=== PATIENT | female | born 1960 | race Caucasian/White ===

== ENCOUNTER 2019-08-22 17:26 | Outpatient (CLI) | payer OTHER, SELFPAY ==
--- NOTE | ~2019-08-22 | CT_ITS ---
EXAMINATION: CT sinus wo con DATE: 08/22/2019 17:47 INDICATION: Sinusitis TECHNIQUE: Computed tomography (CT) of the paranasal sinuses was performed without intravenous contra st. The dose-length product was 294.13 mGy-cm. Automated exposure control and iterative reconstructio n technique were employed. COMPARISON: CT dated 04/06/2015 FINDINGS: There is near complete soft tissue opacification of the left maxillary sinus. There is occl usion of the left ostiomeatal unit with opacification of the left ethmoid air cells anteriorly. Leftw toni nasal septal deviation. Mastoids are pneumatized. IMPRESSION: 1. Moderate sinusitis involving the left maxillary and ethmoid sinuses. Reviewed, dictated and finalized at location A. LLENCE COACH
== END 2019-08-22 17:27 | disposition home or self-care (01) ==
LOC: ANHIMG 17:31
PROVIDERS: PCP Family Medicine; Visit Provider Otolaryngology
DX: J32.9 Chronic sinusitis, unspecified (principal)
CPT/HCPCS: 70486

== ENCOUNTER 2019-09-19 17:03 | Outpatient (CLI) | payer OTHER, SELFPAY ==
[2019-09-19 17:54] LABS: Hematocrit 30.2 % (37.0-47.0); Hemoglobin 9.2 g/dL (12.0-15.0); Mean Corpuscular HGB Conc 30.5 g/dl (32-36); Mean Corpuscular Hemoglobin 23.1 pg (26-34); Mean Corpuscular Volume 75.7 fl (80-100); Mean Platelet Volume 9.5 fl (7.4-10.4); Platelet Count Result 174 k/mm3 (150-375); Red Blood Count 3.99 M/mm3 (4.2-5.4); Red Cell Distribution Width 14.6 % (11.5-14.5)
[2019-09-19 18:14] LABS: Phosphorus 4.4 mg/dL (2.5-4.5)
[2019-09-19 18:20] LABS: Parathyroid Intact 43.2 pg/mL (7.5-53.5)
[2019-09-19 18:50] LABS: Vitamin D 25 Hydroxy 42.9 ng/mL
[2019-09-19 19:15] LABS: Folic Acid 15.8 ng/mL (2.76->20)
[2019-09-23 04:35] LABS: Thyroid Peroxidase Antibodies <1 IU/mL (<9)
[2019-09-24 14:12] LABS: Thyroid Stimulating Immunoglob <89 % baseline (<140)
[2019-09-25 06:34] LABS: Triiodothyronine T3 Free 2.8 pg/mL (2.3-4.2)
== END 2019-09-19 17:04 | disposition home or self-care (01) ==
LOC: ANHLAB 17:05
PROVIDERS: PCP Family Medicine; Visit Provider Internal Medicine Endocrinology, Diabetes & Metabolism
DX: M85.80 Other specified disorders of bone density and structure, unspecified site (principal); R53.83 Other fatigue
CPT/HCPCS: 36415; 82306; 82607; 82746; 83970; 84100; 84439; 84443; 84445; 84481; 85027; 86376

== ENCOUNTER 2019-09-26 10:07 | Outpatient (CLI) | payer OTHER, SELFPAY ==
[2019-09-26 11:11] LABS: Cholesterol 141 mg/dL (0-200); HDL Direct 54 mg/dL; Triglycerides 126 mg/dL (<150)
[2019-09-26 11:21] LABS: LDL Cholesterol Direct 73 mg/dL
== END 2019-09-26 10:08 | disposition home or self-care (01) ==
PROVIDERS: PCP Family Medicine; Referring Provider Internal Medicine Endocrinology, Diabetes & Metabolism; Visit Provider Family Medicine
DX: E78.5 Hyperlipidemia, unspecified (principal); M85.80 Other specified disorders of bone density and structure, unspecified site; R53.83 Other fatigue
CPT/HCPCS: 36415; 80061

== ENCOUNTER 2019-10-01 13:50 | Outpatient (CLI) | payer OTHER, SELFPAY ==
[2019-10-01 14:55] LABS: Creatinine 24 Hour Urine 0.8 gm/24 (0.8-1.8); Total Volume 24 Hour Urine 2600 ml
[2019-10-04 04:39] LABS: Total Volume 2600 mL; Urine Calcium 2.7 mg/dL
== END 2019-10-01 13:51 | disposition home or self-care (01) ==
PROVIDERS: PCP Family Medicine; Visit Provider Internal Medicine Endocrinology, Diabetes & Metabolism
DX: M85.80 Other specified disorders of bone density and structure, unspecified site (principal); R53.83 Other fatigue
CPT/HCPCS: 81050; 82340; 82530; 82570

== ENCOUNTER 2020-01-06 17:43 | Outpatient (CLI) | payer OTHER, SELFPAY ==
[2020-01-06 18:30] LABS: Alanine Aminotransferase 21 U/L (4-35); Albumin Level 4.3 g/dL (3.5-5.1); Alkaline Phosphatase 70 U/L (38-126); Aspartate Amino Transferase 27 U/L (14-36); Bilirubin,Total 0.7 mg/dL (0.2-1.3); Blood Urea Nitrogen 10 mg/dL (7-17); Calcium 8.7 mg/dL (8.4-10.2); Carbon Dioxide 24 mmol/L (22-30); Chloride 107 mmol/L (98-107); Estimated Glomerular Filt Rate > 60; Glucose 117 mg/dL (65-105); Potassium 3.5 mmol/L (3.4-5.0); Sodium 137 mmol/L (137-145)
== END 2020-01-06 17:44 | disposition home or self-care (01) ==
PROVIDERS: PCP Family Medicine; Visit Provider Internal Medicine Endocrinology, Diabetes & Metabolism
DX: M81.0 Age-related osteoporosis without current pathological fracture (principal)
CPT/HCPCS: 36415; 80053

== ENCOUNTER → 2020-04-05 17:27 | Outpatient (CLI) | payer OTHER, SELFPAY ==
--- NOTE | ~2020-04-05 | XR_ITS ---
EXAMINATION: XR hand RT min 3V DATE: 04/05/2020 17:37 INDICATION: Pain at the base of right thumb. TECHNIQUE: 3 views of right hand were obtained. COMPARISON: Right hand radiographs 06/28/2010 FINDINGS: Bone alignment is normal. No fracture. There is diffuse osteopenia. There is moderate osteo arthritis of first carpometacarpal joint with loose bodies. There is mild osteoarthritis of second me tacarpophalangeal joint and many of the interphalangeal joints. There is moderate osteoarthritis of s econd distal interphalangeal joint and severe osteoarthritis of fifth distal interphalangeal joint. IMPRESSION: 1. Polyarticular osteoarthritis. Reviewed, dictated and finalized at location A.
== END ==
PROVIDERS: PCP Family Medicine; Visit Provider Family Medicine
DX: M19.041 Primary osteoarthritis, right hand (principal)
CPT/HCPCS: 73130

== ENCOUNTER 2020-05-20 17:18 | Outpatient (CLI) | payer OTHER, SELFPAY ==
--- NOTE | ~2020-05-20 | MM_ITS ---
EXAMINATION: MM screening [facility] BI w andres HISTORY: Screening mammogram TECHNIQUE: Craniocaudal and mediolateral oblique 3-D tomosynthesis images were obtained and synthetic 2-D images were generated. CAD analysis was submitted and interpreted. COMPARISON: 08/09/2018, 07/10/2017, 03/01/2016 BREAST PARENCHYMAL COMPOSITION: There are scattered areas of fibroglandular density. FINDINGS: There is no evidence of suspicious mass, calcification, or architectural distortion to sugg est malignancy in either breast. There has been no suspicious interval change. IMPRESSION: 1. No mammographic evidence of malignancy. 2. Recommend routine screening mammography in one year. BI-RADS Category 1: Negative Reviewed, dictated and finalized at location A.
== END 2020-05-20 17:19 | disposition home or self-care (01) ==
LOC: ANHIMG 17:20
PROVIDERS: PCP Family Medicine; Visit Provider Family Medicine
DX: Z12.31 Encounter for screening mammogram for malignant neoplasm of breast (principal)
CPT/HCPCS: 77063; 77067

== ENCOUNTER 2020-06-23 09:37 | Outpatient (CLI) | payer OTHER, SELFPAY ==
[2020-06-23 10:16] LABS: Cholesterol 155 mg/dL (0-200); HDL Direct 55 mg/dL; Triglycerides 217 mg/dL (<150)
[2020-06-23 10:17] LABS: Alanine Aminotransferase 23 U/L (4-35); Albumin Level 4.3 g/dL (3.5-5.1); Alkaline Phosphatase 70 U/L (38-126); Anion Gap 7 mmol/L (8-16); Aspartate Amino Transferase 32 U/L (14-36); Bilirubin,Total 0.8 mg/dL (0.2-1.3); Blood Urea Nitrogen 8 mg/dL (7-17); Calcium 10.1 mg/dL (8.4-10.2); Carbon Dioxide 29 mmol/L (22-30); Chloride 103 mmol/L (98-107); Estimated Glomerular Filt Rate > 60; Glucose 109 mg/dL (65-105); Phosphorus 4.9 mg/dL (2.5-4.5); Potassium 4.3 mmol/L (3.4-5.0); Sodium 139 mmol/L (137-145)
[2020-06-23 10:26] LABS: LDL Cholesterol Direct 57 mg/dL
[2020-06-26 19:29] LABS: Vitamin D 1,25 (OH)2 Total 54 pg/mL (18-72); Vitamin D2 1,25 (OH)2 <8 pg/mL; Vitamin D3 1,25 (OH)2 54 pg/mL
== END 2020-06-23 09:38 | disposition home or self-care (01) ==
LOC: ANHLAB 09:39
PROVIDERS: PCP Family Medicine; Visit Provider Family Medicine
DX: E55.9 Vitamin D deficiency, unspecified (principal); E78.00 Pure hypercholesterolemia, unspecified; M81.0 Age-related osteoporosis without current pathological fracture
CPT/HCPCS: 36415; 80053; 80061; 82306; 82652; 83970; 84100

== ENCOUNTER 2020-08-17 17:33 | Outpatient (CLI) | payer OTHER, SELFPAY ==
--- NOTE | ~2020-08-17 | CT_ITS ---
EXAMINATION: CT sinus wo con DATE: 08/17/2020 17:58 INDICATION: Chronic sinusitis TECHNIQUE: Computed tomography (CT) of the paranasal sinuses was performed without contrast. Iterativ e reconstruction technique was employed. Exam dose: 259.22 mGy-cm total exam DLP. COMPARISON: CT sinuses FINDINGS: There is leftward deviation of the nasal septum. Intralamellar cell of left middle nasal turbinate. The nasal turbinates are moderately prominent and relatively symmetric in size. The ostiomeatal units are patent. The paranasal sinuses are normally developed and aerated. Mastoid a ir cells are normally developed and aerated. IMPRESSION: Leftward deviation of nasal septum Intralamellar cell of left middle nasal turbinate Reviewed, dictated and finalized at Location A. Reviewed, dictated and finalized at location A. GE CREW MEMBER
== END 2020-08-17 17:34 | disposition home or self-care (01) ==
PROVIDERS: PCP Family Medicine; Visit Provider Otolaryngology
DX: J32.9 Chronic sinusitis, unspecified (principal); J34.2 Deviated nasal septum
CPT/HCPCS: 70486

== ENCOUNTER 2020-09-25 09:34 | Outpatient (CLI) | payer OTHER, SELFPAY ==
--- NOTE | ~2020-09-25 | MR_ITS ---
EXAMINATION: MR brain IAC wo con EXAM DATE: 09/25/2020 11:13 INDICATION: Dizziness. Headache. Nausea. TECHNIQUE: Multi-sequential, multiplanar MR images of the brain, brainstem, internal auditory canals were obtained without contrast. Whole brain sagittal T1, axial diffusion, gradient echo (T2*), T1, T 2, FLAIR sequences obtained. High resolution coronal 3-D FIESTA, coronal T1 FSE, axial T1 FSPGR of t he internal auditory canals. Correlation is made to sinus CT 08/17/2020. FINDINGS: No evidence of mastoid or middle ear opacification. The 7th/8th cranial nerve complexes a re symmetric, normal in course and caliber. No cerebellopontine angle masses. Posterior fossa unrem arkable. There are no areas of restricted diffusion to suggest acute infarction. There is no acute hemorrhage seen on the T2*, a hemosiderin sensitive sequence. No intraparenchymal brain mass lesion. There is mild periventricular and subcortical T2/FLAIR signal hyperintensity, nonspecific but probably related to small vessel ischemic disease (microangiopathy). There are no extra-axial collections. Flow v oids are seen in the cerebral arteries on the T2-weighted sequences consistent with their expected pa tency. The orbits are unremarkable. Soft tissue is unremarkable. IMPRESSION: 1. No acute intracranial findings. 2. Mild microangiopathy. Reviewed, dictated and finalized at location A. E WIRER
== END 2020-09-25 09:35 | disposition home or self-care (01) ==
PROVIDERS: PCP Family Medicine; Visit Provider Family Medicine
DX: J34.89 Other specified disorders of nose and nasal sinuses (principal); R11.0 Nausea; R51.9 Headache, unspecified; R53.83 Other fatigue
CPT/HCPCS: 70551

== ENCOUNTER 2020-09-27 16:20 | Outpatient (CLI) | payer OTHER, SELFPAY ==
--- NOTE | ~2020-09-27 | MR_ITS ---
EXAMINATION: MR sinus wo con DATE: 09/27/2020 17:06 INDICATION: Headache, unspecified. TECHNIQUE: Magnetic resonance imaging (MRI) of the paranasal sinuses was performed without intravenou s contrast. Sequences included axial and coronal T1-weighted FSE and T2-weighted FS FSE. COMPARISON: CT sinuses 08/17/2020 FINDINGS: There is leftward deviation of the nasal septum. The paranasal sinuses are clear. There are likely ch anges of ocular lens replacement surgeries. There is a small right mastoid effusion. There are scatte red areas of nonspecific increased T2-weighted signal intensity in the cerebral white matter and miky . IMPRESSION: 1. Leftward deviation of the nasal septum. 2. Mild nonspecific cerebral white matter disease and pontine disease, which likely represents chroni c small vessel ischemic disease. Reviewed, dictated and finalized at location A. MILL WORKER IMPRESSION: 1. Leftward deviation of the nasal septum. 2. Mild nonspecific cerebral white matter disease and pontine disease, which cecilia guillen represents chronic small vessel ischemic disease.
== END 2020-09-27 16:21 | disposition home or self-care (01) ==
PROVIDERS: PCP Family Medicine; Visit Provider Family Medicine
DX: R51.9 Headache, unspecified (principal); J34.89 Other specified disorders of nose and nasal sinuses; R11.0 Nausea; R53.83 Other fatigue; R90.82 White matter disease, unspecified
CPT/HCPCS: 70540

== ENCOUNTER → 2020-10-04 17:34 | Outpatient (CLI) | payer OTHER, SELFPAY ==
--- NOTE | ~2020-10-04 | XR_ITS ---
XR knee RT min 4V DATE: 10/04/2020 17:58 INDICATION: Right knee pain TECHNIQUE: 4 views COMPARISON: None FINDINGS: No fracture or dislocation or joint effusion. No periosteal reaction or bone destruction. Joint spaces are preserved. No radiopaque intra-articular loose body or chondrocalcinosis. IMPRESSION: Negative Reviewed, dictated and finalized at location A. IMPRESSION: Negative
--- NOTE | ~2020-10-04 | XR_ITS ---
XR femur RT min 2V DATE: 10/04/2020 17:58 INDICATION: Right leg pain TECHNIQUE: AP and lateral views COMPARISON: 10/02/2020 pelvis and right hip FINDINGS: No fracture or dislocation, periosteal reaction or bone destruction. IMPRESSION: No significant abnormality Reviewed, dictated and finalized at location A. IMPRESSION: No significant abnormality
--- NOTE | ~2020-10-04 | XR_ITS ---
XR hip RT min 3V w AP pelvis DATE: 10/04/2020 17:58 INDICATION: Right hip pain TECHNIQUE: AP pelvis. AP, lateral and crosstable lateral views of right hip. COMPARISON: 01/06/2011 right hip FINDINGS: No fracture, dislocation, avascular necrosis or bone destruction of the right hip. The pubic symphysis and sacroiliac joints are intact. Mild left hip osteoarthritis. IMPRESSION: Mild left hip osteoarthritis Reviewed, dictated and finalized at location A.
--- NOTE | ~2020-10-04 | XR_ITS ---
XR tibia fibula RT 2V DATE: 10/04/2020 17:58 INDICATION: Pain TECHNIQUE: AP and lateral views COMPARISON: None FINDINGS: No fracture or dislocation, periosteal reaction or bone destruction. Plantar and posterior calcaneal enthesopathy. IMPRESSION: Calcaneal enthesopathy Reviewed, dictated and finalized at location A. IMPRESSION: Calcaneal enthesopathy
== END ==
PROVIDERS: PCP Family Medicine; Visit Provider Family Medicine
DX: M25.551 Pain in right hip (principal); M25.561 Pain in right knee; M79.651 Pain in right thigh; M79.661 Pain in right lower leg; M77.31 Calcaneal spur, right foot; M16.12 Unilateral primary osteoarthritis, left hip
CPT/HCPCS: 73502; 73552; 73564; 73590

== ENCOUNTER 2020-10-09 08:46 | Outpatient (CLI) | payer OTHER, SELFPAY ==
[2020-10-09 09:25] LABS: Basophils Percent Auto 0.8 % (0.2-1.2); Eosinophils Absolute Auto 0.1 K/mm3 (0-0.3); Eosinophils Percent Auto 3.7 % (0-4.4); Hematocrit 36.2 % (37.0-47.0); Hemoglobin 12.7 g/dL (12.0-15.0); Immature Granulocyte Absolute 0.01 K/mm3 (0.00-0.031); Immature Granulocyte Percent A 0.3 % (0-0.5); Lymphocytes Absolute Auto 1.19 K/mm3 (0.9-3.2); Lymphocytes Percent Auto 31.6 % (18.3-44.2); Mean Corpuscular HGB Conc 35.1 g/dl (32-36); Mean Corpuscular Hemoglobin 30.1 pg (26-34); Mean Corpuscular Volume 85.8 fl (80-100); Mean Platelet Volume 9.8 fl (7.4-10.4); Monocytes Absolute Auto 0.4 K/mm3 (0.1-0.6); Monocytes Percent Auto 9.5 % (2.6-8.5); Neutrophils Percent Auto 54.1 % (45.5-73.1); Platelet Count Result 159 k/mm3 (150-375); Red Blood Count 4.22 M/mm3 (4.2-5.4); White Blood Count 3.8 K/mm3 (4.5-10.0)
[2020-10-09 09:28] LABS: Alanine Aminotransferase 22 U/L (4-35); Albumin Level 4.6 g/dL (3.5-5.1); Alkaline Phosphatase 73 U/L (38-126); Anion Gap 8 mmol/L (8-16); Aspartate Amino Transferase 31 U/L (14-36); Bilirubin,Total 0.9 mg/dL (0.2-1.3); Blood Urea Nitrogen 8 mg/dL (7-17); Calcium 9.2 mg/dL (8.4-10.2); Carbon Dioxide 27 mmol/L (22-30); Chloride 106 mmol/L (98-107); Cholesterol 154 mg/dL (0-200); Estimated Glomerular Filt Rate > 60; Glucose 110 mg/dL (65-105); HDL Direct 54 mg/dL; Potassium 3.8 mmol/L (3.4-5.0); Sodium 141 mmol/L (137-145); Triglycerides 197 mg/dL (<150)
[2020-10-09 09:32] LABS: Hemoglobin A1C 4.9 % (<5.7)
[2020-10-09 09:39] LABS: LDL Cholesterol Direct 62 mg/dL
[2020-10-09 09:50] LABS: Iron 100 ug/dL (37-170)
[2020-10-09 09:54] LABS: Immunoglobulin A 132 mg/dL (70-400); Immunoglobulin M 43 mg/dL (40-230)
[2020-10-09 10:00] LABS: Percent Iron Saturation 22 % (20-50)
[2020-10-09 10:22] LABS: Hepatitis B Surface Antigen Negative (Negative)
[2020-10-09 10:39] LABS: Hepatitis B Surface Anti Res Negative; Hepatitis C Virus Antibody Negative (Negative)
[2020-10-12 12:28] LABS: Hepatitis B Core Ab Total Nonreactive (Nonreactive)
[2020-10-13 09:41] LABS: Mitochondrial (M2) Ab (IgG) <=20.0 U (<=20.0)
[2020-10-14 11:16] LABS: Ceruloplasmin 34 mg/dL (18-53)
[2020-10-14 14:26] LABS: Tissue Transglutaminase IgA Ab 1 U/mL (<4)
[2020-10-16 09:16] LABS: Actin Antibody (IgG) <20 U (<20)
[2020-10-20 13:40] LABS: Immunoglobulin G 844 mg/dL (700-1600)
== END 2020-10-09 08:47 | disposition home or self-care (01) ==
LOC: ANHLAB 08:54
PROVIDERS: PCP Family Medicine
DX: K50.819 Crohn's disease of both small and large intestine with unspecified complications (principal); D50.0 Iron deficiency anemia secondary to blood loss (chronic); K21.9 Gastro-esophageal reflux disease without esophagitis; R19.7 Diarrhea, unspecified; R11.2 Nausea with vomiting, unspecified
CPT/HCPCS: 36415; 80053; 80061; 82104; 82390; 82728; 82784; 83036; 83516; 83520; 83540; 83550; 85025; 86038; 86704; 86706; 86803; 87340

== ENCOUNTER 2020-10-15 16:27 | Outpatient (CLI) | payer OTHER, SELFPAY ==
--- NOTE | ~2020-10-15 | MR_ITS ---
EXAMINATION: MR hip RT wo con DATE: 10/15/2020 17:42 INDICATION: Right groin pain TECHNIQUE: Magnetic resonance imaging (MRI) of the right hip was performed without intravenous contr ast. Sequences included full-field axial PD-weighted FS FSE and T1-weighted FSE, coronal of the pelvi s with PD-weighted FS FSE, small field of view of the affected hip with axial PD-weighted FS FSE, sa gittal PD-weighted FS FSE and coronal PD weighted FS FSE. Additional radial T1-weighted FGR oriented orthogonal to the acetabular rim were obtained for evaluation of the labrum. COMPARISON: None FINDINGS: Bones/labrum/cartilage: Alignment is normal. No fracture, avascular necrosis or pathologic marrow replacing process. Mild ri ght hip osteoarthritis with mild nonuniform joint space narrowing greatest anterosuperiorly where the re is a region of high-grade chondromalacia with partial-thickness cartilage loss, deep fissuring and mild underlying subarticular cystic change at the anterosuperior acetabulum. There is irregular dege nerative tearing of the anterosuperior to superolateral right acetabular labrum. Small acetabular mar ginal osteophytes. Replace portions of the posterior superior right acetabular labrum. Moderate to se sandra bilateral lower lumbar facet osteoarthritis. Fluid: Symmetric physiologic amount of fluid within both hip joints. Soft tissues: Normal and symmetric muscle bulk and signal in the pelvis and visualized proximal thighs. The iliopso as, gluteal and proximal hamstring tendons are normal. Limited evaluation of visceral organs of the p jasen is unremarkable including a normal appendix. No pathologically enlarged pelvic/inguinal lympha denopathy. IMPRESSION: 1. 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 Reviewed, dictated and finalized at location A. IMPRESSION: 1. Mild right hip osteoarthritis with labral tear and small regions of high-gra de acetabular chondromalacia.
== END 2020-10-15 16:28 | disposition home or self-care (01) ==
PROVIDERS: PCP Family Medicine; Visit Provider Orthopaedic Surgery
DX: M16.11 Unilateral primary osteoarthritis, right hip (principal)
CPT/HCPCS: 73721

== ENCOUNTER 2021-02-02 13:54 | Outpatient (CLI) | payer OTHER, SELFPAY ==
--- NOTE | ~2021-02-02 | DEXA_ITS ---
Bone Density Report Name: Muriel Wade Age: 60 Sex: Female Ethnicity: White Date of : 1960 Indication: osteopenia; monitoring treatment; height loss; inflammatory bowel disease; prior fracture; postmenopausal Referring Provider: Jon, Juliette Esteban Study: Bone densitometry was performed. Exam Date: February 02, 2021 Accession number: [id number] Bone Density: Region BMD T-score Z-score Classification AP Spine (L1-L4) 0.857 -1.7 -0.1 Osteopenia Femoral Neck (Left) 0.604 -2.2 -0.8 Osteopenia Total Hip (Left) 0.761 -1.5 -0.4 Osteopenia Total Hip Bilateral Avg 0.737 -1.7 -0.6 Osteopenia Femoral Neck (Right) 0.595 -2.3 -0.9 Osteopenia Total Hip (Right) 0.712 -1.9 -0.8 Osteopenia World Health Organization criteria for BMD impression classify patients as: Normal (T-score at or above -1.0), Osteopenia (T-score between -1.0 and -2.5), or Osteoporosis (T-score at or below -2.5). 10-year Fracture Risk: FRAX not reported because: Treated for osteoporosis Previous Exams: Region Exam Age BMD T-score BMD Change BMD Change Date g/cm2 vs Baseline vs Previous AP Spine(L1-L4) 02/02/2021 60 0.857 -1.7 -0.092(-9.7%)# -0.033(-3.7%)* 01/31/2019 58 0.890 -1.4 -0.060(-6.3%)# -0.005(-0.5%) 03/01/2016 55 0.895 -1.4 -0.055(-5.8%)# 0.021(2.4%)# 07/30/2013 53 0.874 -1.6 -0.076(-8.0%)# -0.076(-8.0%)# 05/18/2010 50 0.950 -0.9 Total Hip(Left) 02/02/2021 60 0.761 -1.5 -0.033(-4.2%)# 0.026(3.5%) 01/31/2019 58 0.735 -1.7 -0.059(-7.4%)# -0.060(-7.5%)* 03/01/2016 55 0.795 -1.2 0.001(0.1%)# -0.054(-6.3%)# 07/30/2013 53 0.849 -0.8 0.054(6.9%)# 0.054(6.9%)# 05/18/2010 50 0.794 -1.2 Total Hip(Right) 02/02/2021 60 0.712 -1.9 -0.039(-5.2%)# -0.032(-4.3%)* 01/31/2019 58 0.744 -1.6 -0.007(-1.0%)# -0.023(-3.0%) 03/01/2016 55 0.767 -1.4 0.016(2.1%)# -0.008(-1.0%)# 07/30/2013 53 0.775 -1.4 0.024(3.2%)# 0.024(3.2%)# 05/18/2010 50 0.751 -1.6 *Denotes significance at 95% confidence level, LSC for AP Spine = 0.022 g/cm2, LSC for Total Hip = 0.027 g/cm2 Clinical Information Provided by Patient: Has had a low trauma fracture Is being treated for osteoporosis Has used the following medications: Vitamin D, Calcium Has the following medical conditions: Inflammatory bowel diseases Patient maximum height was 61 Menopause Age: 41 No regular weight bearing exercise Drinks caffeinated beverages Onset of menses at age 11 Number of children 3
== END 2021-02-02 13:55 | disposition home or self-care (01) ==
LOC: ANHIMG 13:56
PROVIDERS: PCP Family Medicine; Visit Provider Internal Medicine Endocrinology, Diabetes & Metabolism
DX: M81.0 Age-related osteoporosis without current pathological fracture (principal); M85.88 Other specified disorders of bone density and structure, other site; M85.852 Other specified disorders of bone density and structure, left thigh; M85.851 Other specified disorders of bone density and structure, right thigh
CPT/HCPCS: 77080

== ENCOUNTER 2021-02-05 09:21 | Outpatient (CLI) | payer OTHER, SELFPAY ==
[2021-02-05 09:52] LABS: Eosinophils Absolute Auto 0.1 K/mm3 (0-0.3); Eosinophils Percent Auto 3.3 % (0-4.4); Hematocrit 34.8 % (37.0-47.0); Hemoglobin 11.7 g/dL (12.0-15.0); Immature Granulocyte Absolute 0.01 K/mm3 (0.00-0.031); Immature Granulocyte Percent A 0.3 % (0-0.5); Lymphocytes Absolute Auto 0.83 K/mm3 (0.9-3.2); Lymphocytes Percent Auto 27.3 % (18.3-44.2); Mean Corpuscular HGB Conc 33.6 g/dl (32-36); Mean Corpuscular Hemoglobin 29.2 pg (26-34); Mean Corpuscular Volume 86.8 fl (80-100); Mean Platelet Volume 9.3 fl (7.4-10.4); Monocytes Absolute Auto 0.3 K/mm3 (0.1-0.6); Monocytes Percent Auto 9.2 % (2.6-8.5); Neutrophils Absolute Auto 1.8 K/mm3 (1.3-6.7); Neutrophils Percent Auto 58.9 % (45.5-73.1); Platelet Count Result 161 k/mm3 (150-375); Red Blood Count 4.01 M/mm3 (4.2-5.4); Red Cell Distribution Width 12.7 % (11.5-14.5)
[2021-02-05 10:49] LABS: Cholesterol 147 mg/dL (0-200); HDL Direct 51 mg/dL; Triglycerides 124 mg/dL (<150)
[2021-02-05 10:50] LABS: Alanine Aminotransferase 15 U/L (4-35); Albumin Level 4.5 g/dL (3.5-5.1); Alkaline Phosphatase 65 U/L (38-126); Anion Gap 9 mmol/L (8-16); Aspartate Amino Transferase 25 U/L (14-36); Bilirubin,Total 0.8 mg/dL (0.2-1.3); Blood Urea Nitrogen 6 mg/dL (7-17); CRP < 0.5 mg/dL (<1.0); Calcium 9.4 mg/dL (8.4-10.2); Carbon Dioxide 26 mmol/L (22-30); Chloride 106 mmol/L (98-107); Estimated Glomerular Filt Rate > 60; Glucose 99 mg/dL (65-110); Potassium 3.6 mmol/L (3.4-5.0); Sodium 141 mmol/L (137-145)
[2021-02-05 10:59] LABS: LDL Cholesterol Direct 58 mg/dL
[2021-02-05 11:36] LABS: Parathyroid Intact 54.5 pg/mL (7.5-53.5)
[2021-02-05 12:06] LABS: Free T4 Free Thyroxine 0.84 ng/mL (0.78-2.19); Vitamin D 25 Hydroxy 31.6 ng/mL
[2021-02-09 02:58] LABS: Insulin Level Total 6.1 uIU/mL (<=19.6)
[2021-02-10 21:43] LABS: Estradiol, Ultrasensitive 5 pg/mL
[2021-02-11 16:41] LABS: Testosterone Free 1.8 pg/mL (0.1-6.4); Testosterone Total 13 ng/dL (2-45)
== END 2021-02-05 09:22 | disposition home or self-care (01) ==
PROVIDERS: PCP Family Medicine; Referring Provider Internal Medicine Endocrinology, Diabetes & Metabolism; Visit Provider Family Medicine
DX: E78.00 Pure hypercholesterolemia, unspecified (principal); K50.819 Crohn's disease of both small and large intestine with unspecified complications; R73.01 Impaired fasting glucose; M81.0 Age-related osteoporosis without current pathological fracture
CPT/HCPCS: 36415; 80053; 80061; 82306; 82670; 83525; 83970; 84402; 84403; 84439; 84443; 85025; 86140

== ENCOUNTER 2021-02-07 17:24 | Outpatient (CLI) | payer OTHER, SELFPAY ==
[2021-02-10 11:54] LABS: NIL 0.08 IU/mL; Quantiferon TB Plus, 1T NEGATIVE (NEGATIVE); TB2-NIL 0.02 IU/mL
== END 2021-02-07 17:25 | disposition home or self-care (01) ==
LOC: ANHLAB 17:27
PROVIDERS: PCP Family Medicine
DX: K50.819 Crohn's disease of both small and large intestine with unspecified complications (principal)
CPT/HCPCS: 36415; 86480

== ENCOUNTER 2021-02-09 13:29 | Outpatient (CLI) | payer OTHER, SELFPAY ==
--- NOTE | ~2021-02-09 | XR_ITS ---
EXAMINATION: XR lg joint inject/asp w image DATE: 02/09/2021 14:41 INDICATION: Right hip osteoarthritis TECHNIQUE: A time-out was performed to verify the patient's name, date of , and procedure to b e performed. The procedure including the risks, benefits, and alternatives was discussed with the pat ient. Risks discussed included bleeding and infection. The patient understood the risks and agreed to proceed. The skin overlying the right hip joint was prepped and draped in usual sterile fashion. A nesthetic was administered with 1% lidocaine subcutaneously. A 22 G needle was advanced under fluoro scopic guidance into the joint. Injection of 1 mL of Omnipaque 240 confirmed intra-articular positio n of the needle. Subsequently, injectate consisting of 5 mL of a 4:1 mixture of 1% lidocaine: 80 mg Depo-Medrol was instilled. Washout of contrast was seen confirming intra-articular administration. Th e needle was removed and the entry site was cleaned and dressed. There were no immediate complicatio ns. Fluoroscopy exposure time was 0.1 minutes. The total number of images was 2. FINDINGS: Real-time fluoroscopy demonstrates the needle in the right hip joint. Patient's pain prior to procedure:11/29. Patient's pain following the procedure: 08/01. IMPRESSION: 1. Right hip joint injection of local anesthetic and steroid with decrease in the patient's presentin g pain. Reviewed, dictated and finalized at location A. IMPRESSION: 1. Right hip joint injection of local anesthetic and steroid with decrease in t he patient's presenting pain.
== END 2021-02-09 13:30 | disposition home or self-care (01) ==
PROVIDERS: PCP Family Medicine; Visit Provider Physician Assistant Surgical
DX: M16.11 Unilateral primary osteoarthritis, right hip (principal)
CPT/HCPCS: 20610; 77002; J1040; Q9966

== ENCOUNTER 2021-03-09 15:05 | Outpatient (CLI) | payer OTHER, SELFPAY ==
[2021-03-09 15:56] LABS: Creatinine Urine 31.4 mg/dL
[2021-03-09 15:57] LABS: Creatinine 24 Hour Urine 0.9 gm/24 (0.8-1.8); Total Volume 24 Hour Urine 3150 ml
[2021-03-14 14:37] LABS: Total Volume 3150 mL; Urine Calcium 1.4 mg/dL
== END 2021-03-09 15:06 | disposition home or self-care (01) ==
PROVIDERS: PCP Family Medicine
DX: M81.0 Age-related osteoporosis without current pathological fracture (principal)
CPT/HCPCS: 81050; 82340; 82530; 82570

== ENCOUNTER 2021-05-25 13:56 | Outpatient (CLI) | payer OTHER, SELFPAY ==
--- NOTE | ~2021-05-25 | MM_ITS ---
EXAMINATION: MM screening [facility] BI w andres HISTORY: Screening TECHNIQUE: Craniocaudal and mediolateral oblique 3-D tomosynthesis images were obtained and synthetic 2-D images were generated. CAD analysis was submitted and interpreted. COMPARISON: Comparison to multiple prior studies sequentially, with oldest reviewed study dated 02/2014. BREAST PARENCHYMAL COMPOSITION: There are scattered areas of fibroglandular density. FINDINGS: There is no evidence of suspicious mass, calcification, or architectural distortion to sugg est malignancy in either breast. There has been no suspicious interval change. IMPRESSION: 1. No mammographic evidence of malignancy. 2. Recommend routine screening mammography in one year. BI-RADS Category 1: Negative Reviewed, dictated and finalized at location A.
== END 2021-05-25 13:57 | disposition home or self-care (01) ==
LOC: ANHIMG 13:57
PROVIDERS: PCP Family Medicine; Visit Provider Family Medicine
DX: Z12.31 Encounter for screening mammogram for malignant neoplasm of breast (principal)
CPT/HCPCS: 77063; 77067

== ENCOUNTER 2021-07-05 17:14 | Outpatient (CLI) | payer OTHER, SELFPAY ==
[2021-07-18 08:44] LABS: Reference Lab Test Result 8.2
== END 2021-07-05 17:15 | disposition home or self-care (01) ==
PROVIDERS: PCP Family Medicine
DX: K50.819 Crohn's disease of both small and large intestine with unspecified complications (principal)
CPT/HCPCS: 99199; 36415; 80230

== ENCOUNTER → 2021-08-22 17:17 | Outpatient (CLI) | payer OTHER, SELFPAY ==
--- NOTE | ~2021-08-22 | XR_ITS ---
EXAMINATION: XR soft tissue neck EXAM DATE: 08/22/2021 17:40 INDICATION: M54.2 - Cervicalgia. TECHNIQUE: Frontal and lateral projections of the neck soft tissues. There is no prior study for co mparison. FINDINGS: Lung apices are clear. There is mild disc disease at C5-6 with 2 mm retrolisthesis. There is mild to moderate cervical arthropathy. Prevertebral soft tissue and pre-dens space are within norm al limits. The odontoid process is intact. The lateral masses of C1 line up with C2. Epiglottis is n ormal in thickness. There may be mild left carotid bulb arterial sclerosis. IMPRESSION: Mild to moderate cervical arthropathy. Reviewed, dictated and finalized at location G. YTICS LEAD
== END ==
PROVIDERS: PCP Family Medicine; Visit Provider Family Medicine
DX: M54.2 Cervicalgia (principal)
CPT/HCPCS: 70360

== ENCOUNTER 2021-08-29 07:46 | Outpatient (CLI) | payer OTHER, SELFPAY ==
--- NOTE | ~2021-08-29 | US_ITS ---
EXAMINATION: US soft tissue head and neck EXAM DATE: 08/29/2021 08:20 INDICATION: Swelling mass lump right-sided neck. TECHNIQUE: Multiple grayscale and Doppler images of the symptomatic right neck region were obtained ( by a technologist who performed the scan) and subsequently reviewed. There is no prior study for yovany patel. FINDINGS: Scanning in the right neck area of concern demonstrates a lymph node measuring 1.1 x 0.7 x 0.6 cm wit h fatty hilum, dimension is within normal size limits. This is the largest lymph node identified. Lym ph node appears to be located posterior to the right submandibular gland, which is unremarkable. IMPRESSION: Right cervical lymph node within normal size limits. Probably reactive. Reviewed, dictated and finalized at location B. R TRIMMER IMPRESSION: Right cervical lymph node within normal size limits. Probably react kasandra.
== END 2021-08-29 07:47 | disposition home or self-care (01) ==
LOC: ANHIMG 07:50
PROVIDERS: PCP Family Medicine; Visit Provider Family Medicine
DX: R22.1 Localized swelling, mass and lump, neck (principal)
CPT/HCPCS: 76536

== ENCOUNTER 2021-09-10 07:11 | Outpatient (CLI) | payer OTHER, SELFPAY ==
[2021-09-10 07:33] LABS: Hematocrit 32.9 % (37.0-47.0); Hemoglobin 10.8 g/dL (12.0-15.0); Mean Corpuscular HGB Conc 32.8 g/dl (32-36); Mean Corpuscular Hemoglobin 29.3 pg (26-34); Mean Corpuscular Volume 89.2 fl (80-100); Mean Platelet Volume 9.1 fl (7.4-10.4); Platelet Count Result 145 k/mm3 (150-375); Red Blood Count 3.69 M/mm3 (4.2-5.4); Red Cell Distribution Width 13.4 % (11.5-14.5); White Blood Count 3.2 K/mm3 (4.5-10.0)
[2021-09-10 07:46] LABS: Alanine Aminotransferase 16 U/L (4-35); Albumin Level 4.1 g/dL (3.5-5.1); Alkaline Phosphatase 57 U/L (38-126); Anion Gap 9 mmol/L (8-16); Aspartate Amino Transferase 28 U/L (14-36); Bilirubin,Total 0.5 mg/dL (0.2-1.3); Blood Urea Nitrogen 11 mg/dL (7-17); Calcium 8.9 mg/dL (8.4-10.2); Carbon Dioxide 24 mmol/L (22-30); Chloride 107 mmol/L (98-107); Cholesterol 137 mg/dL (0-200); Estimated Glomerular Filt Rate > 60; Glucose 112 mg/dL (65-110); HDL Direct 38 mg/dL; Phosphorus 5.3 mg/dL (2.5-4.5); Sodium 140 mmol/L (137-145); Triglycerides 182 mg/dL (<150)
[2021-09-10 07:57] LABS: LDL Cholesterol Direct 48 mg/dL
[2021-09-10 08:06] LABS: Hemoglobin A1C 4.9 % (<5.7)
[2021-09-10 08:24] LABS: Free T4 Free Thyroxine 1.09 ng/mL (0.78-2.19); Vitamin D 25 Hydroxy 34.1 ng/mL
[2021-09-14 04:25] LABS: Insulin Level Total 4.9 uIU/mL (<=19.6)
[2021-09-15 11:03] LABS: ANA Cascade Screen Negative (Negative)
== END 2021-09-10 07:12 | disposition home or self-care (01) ==
PROVIDERS: PCP Family Medicine; Referring Provider Internal Medicine Endocrinology, Diabetes & Metabolism; Visit Provider Family Medicine
DX: E78.00 Pure hypercholesterolemia, unspecified (principal); M81.0 Age-related osteoporosis without current pathological fracture; K21.9 Gastro-esophageal reflux disease without esophagitis; K50.90 Crohn's disease, unspecified, without complications; R53.83 Other fatigue; R59.9 Enlarged lymph nodes, unspecified
CPT/HCPCS: 36415; 80053; 80061; 82306; 83036; 83525; 84100; 84439; 84443; 84481; 85027; 86038

== ENCOUNTER 2021-09-19 14:12 | Outpatient (CLI) | payer OTHER, SELFPAY ==
--- NOTE | ~2021-09-19 | CT_ITS ---
EXAMINATION: CT soft tissue neck w con EXAM DATE: 09/19/2021 14:48 INDICATION: R22.1 - Localized swelling, mass and lump, neck . Lump on right side of neck. TECHNIQUE: Spiral CT of the neck was performed following intravenous injection of 75 mL Omnipaque 350 . Axial, coronal and sagittal images were reviewed. The dose-length product (DLP) for this examinat ion was 348.08 mGy-cm. The exposure was tailored according to patient size (auto mA exposure control ), and iterative reconstruction (ASIR) was used as additional dose reduction technique. There is no prior study for comparison. FINDINGS: The thyroid gland is unremarkable. The submandibular and parotid glands are symmetric. There is no cervical lymphadenopathy. There are no masses identified. The superior mediastinum is unremarkable. The airway is unremarkable. Parapharyngeal and pre-glottic fat planes are preserve d. The opacified vasculature is patent. The orbits are unremarkable. Visualized sinuses and mas toid air cells are well aerated. Lung apices are clear. There is mild cervical spondylosis. Catara ct surgery. IMPRESSION: Unremarkable CT neck exam. Reviewed, dictated and finalized at location B. ORY TEACHER IMPRESSION: Unremarkable CT neck exam.
== END 2021-09-19 14:13 | disposition home or self-care (01) ==
LOC: ANHIMG 14:14
PROVIDERS: PCP Family Medicine; Visit Provider Family Medicine
DX: M54.2 Cervicalgia (principal); R59.9 Enlarged lymph nodes, unspecified
CPT/HCPCS: 70491; Q9967

== ENCOUNTER 2021-10-22 14:18 | Emergency (ER) | payer OTHER, SELFPAY ==
[2021-10-22 14:26] VITALS: BP 173/85; PULSE 118; RESP 18; TEMP 37.6; O2SAT 100
--- NOTE | 2021-10-22 15:09 | ED.GENADULT ---
HPI - General Adult General Chief complaint: Skin/Abscess/Foreign Body Stated complaint: rash Source: patient Mode of arrival: ambulatory Limitations: no limitations History of Present Illness HPI narrative: Patient presents for evaluation of rash to her face, chest, back and extremities x 4. Symptom onset three days ago. She states she has been undergoing supervision and care for infection to her right parotid gland. She states that infection started in July of this year. She was on doxycycline earlier this month. She saw ENT, Dr Meadows, at [facility] on 10/12/21 and it was recommended she change the doxycycline to clindamycin. She made that change and saw another ENT who specialized in parotid gland, Dr Corona with [facility], on 10/13/21. She continued to take her clindamycin as directed. She developed a rash on 10/19/21 so stopped the medication. She started Medrol Dosepak, Zyrtec, triamcinolone and calamine lotion yesterday. She also works for [employer] and received an injection of Depo-Medrol 40mg yesterday. Rash is not improving. She does not have any difficulty breathing or swallowing. Rash is extremely pruritic. No new lotions, soaps, detergents or topical products prior to time of symptom onset. She does have Crohn's and receives inflectra infusions at [facility] every 4 weeks typically. Last injection seven weeks ago. No recent abdominal pain, diarrhea or rectal bleeding. She has a family member who has SLE. Pt had autoimmune screening in past and RINKU was negative. She developed a drug related rash in past with sulfa. Related Data Home Medications Medication Instructions Recorded Confirmed cholestyramine (with sugar) 4 gram PO BID g 05/04/20 07/14/21 oral powder levothyroxine 25 mcg tablet 25 mcg PO DAILY 10/06/21 Allergies Allergy/AdvReac Type Severity Reaction Status Date / Time celecoxib Allergy Unknown swelling Verified 07/14/21 11:59 latex Allergy Unknown Skin Verified 07/14/21 11:59 Reaction Sulfa (Sulfonamide Allergy Unknown Skin Verified 07/14/21 11:59 Antibiotics) Reaction Review of Systems Review of Systems: CONSTITUTIONAL: Denies fever, chills, or sweats. EYES: Denies visual changes, redness, or discharge. ENT: Denies rhinorrhea, congestion, sore throat, or otalgia. CARDIOVASCULAR: Denies chest pain, palpitations, or edema. RESPIRATORY: Denies cough or dyspnea. GASTROINTESTINAL: Denies abdominal pain, nausea, vomiting, or diarrhea. GENITOURINARY: Denies dysuria or hematuria. SKIN: Reports pruritic rash to face, chest, back, and extremities x 4 MUSCULOSKELETAL: Denies back pain, joint pain, or myalgia. NEUROLOGIC: Denies headache, numbness, dizziness, or weakness. PSYCHIATRIC: Denies anxiety or depression. [facility] Past Medical History Medical History (Updated 10/22/21 @ 16:10 by MARTIN Rodriguez, ) Bunion of great toe of left foot (~2004) Cholelithiasis 12/2003 Crohn disease Gastroesophageal reflux disease Hallux rigidus 2013 Hyperlipidemia Hypertension Hypothyroidism Surgical History Surgical History S/P arthroscopic partial medial meniscectomy Family History Family History Father Diabetes mellitus Hypertension Family history of elevated blood lipids Acute myocardial infarction Cerebrovascular accident Family history of kidney disease Family history of coronary artery disease Grandparent Family history of malignant neoplasm of stomach Mother Family history of lupus erythematosus Social History Social History Smoking status: Former smoker Alcohol use details: Currently does not consume alcohol Substance use: never Substance use type: does not use Living arrangements: with family Gender identity (if verbalized by the patient): Female Sexual Orientation (if Verbaliz
[2021-10-22] MEDS: methylPREDNISolone SOD SUCC 125 MG VIAL IM (15:18)
[2021-10-22] MEDS: diphenhydrAMINE HCl CAP 25 MG CAPSULE PO (15:19)
== END 2021-10-22 16:16 | disposition home or self-care (01) ==
PROVIDERS: Emergency Provider Nurse Practitioner; PCP Family Medicine
DX: R21 Rash and other nonspecific skin eruption (principal); Z87.891 Personal history of nicotine dependence; K50.90 Crohn's disease, unspecified, without complications; K21.9 Gastro-esophageal reflux disease without esophagitis; E78.5 Hyperlipidemia, unspecified; I10 Essential (primary) hypertension; E03.9 Hypothyroidism, unspecified
CPT/HCPCS: 96372; 99213; A9270; G0463; J2930

== ENCOUNTER 2021-11-02 15:21 | Outpatient (CLI) | payer OTHER, SELFPAY ==
[2021-11-02 15:38] LABS: Basophils Absolute Auto 0.1 K/mm3 (0.0-0.1); Basophils Percent Auto 0.6 % (0.2-1.2); Eosinophils Percent Auto 0.4 % (0-4.4); Hematocrit 41.8 % (37.0-47.0); Hemoglobin 13.2 g/dL (12.0-15.0); Immature Granulocyte Absolute 0.29 K/mm3 (0.00-0.031); Immature Granulocyte Percent A 3.5 % (0-0.5); Immature Reticulocyte Fraction 3.9 % (3.0-15.9); Lymphocytes Percent Auto 21.9 % (18.3-44.2); Mean Corpuscular HGB Conc 31.6 g/dl (32-36); Mean Corpuscular Hemoglobin 28.7 pg (26-34); Mean Corpuscular Volume 90.9 fl (80-100); Mean Platelet Volume 8.8 fl (7.4-10.4); Monocytes Absolute Auto 0.7 K/mm3 (0.1-0.6); Monocytes Percent Auto 8.9 % (2.6-8.5); Neutrophils Absolute Auto 5.3 K/mm3 (1.3-6.7); Neutrophils Percent Auto 64.7 % (45.5-73.1); Platelet Count Result 198 k/mm3 (150-375); Red Cell Distribution Width 13.4 % (11.5-14.5); Reticulocyte Hemoglobin Conten 34.8 pg (28.2-35.7); Reticulocyte Percent 2.15 % (0.7-4.3); White Blood Count 8.2 K/mm3 (4.5-10.0)
[2021-11-02 16:34] LABS: Iron 76 ug/dL (37-170)
[2021-11-02 16:37] LABS: Alanine Aminotransferase 21 U/L (4-35); Albumin Level 3.8 g/dL (3.5-5.1); Alkaline Phosphatase 70 U/L (38-126); Anion Gap 7 mmol/L (8-16); Aspartate Amino Transferase 25 U/L (14-36); Bilirubin,Total 0.6 mg/dL (0.2-1.3); Blood Urea Nitrogen 20 mg/dL (7-17); Calcium 8.2 mg/dL (8.4-10.2); Carbon Dioxide 25 mmol/L (22-30); Chloride 100 mmol/L (98-107); Estimated Glomerular Filt Rate > 60; Glucose 117 mg/dL (65-110); Lactate Dehydrogenase 407 U/L (313-618); Potassium 4.4 mmol/L (3.4-5.0); Sodium 132 mmol/L (137-145)
[2021-11-02 16:51] LABS: Percent Iron Saturation 19 % (20-50)
[2021-11-02 17:43] LABS: Folic Acid 6.4 ng/mL (2.76->20)
[2021-11-08 07:40] LABS: Methylmalonic Acid 4131 nmol/L (87-318)
== END 2021-11-02 15:22 | disposition home or self-care (01) ==
LOC: ANHLAB 15:22
PROVIDERS: PCP Family Medicine; Visit Provider Internal Medicine Hematology & Oncology
DX: D64.9 Anemia, unspecified (principal)
CPT/HCPCS: 36415; 80053; 82607; 82746; 83540; 83550; 83615; 83921; 85025; 85046

== ENCOUNTER 2021-11-29 17:21 | Outpatient (CLI) | payer OTHER, SELFPAY ==
[2021-11-29 19:21] LABS: Free T4 Free Thyroxine 1.05 ng/mL (0.78-2.19)
[2021-12-05 08:15] LABS: Triiodothyronine T3 Free 2.8 pg/mL (2.3-4.2)
== END 2021-11-29 17:22 | disposition home or self-care (01) ==
LOC: ANHLAB 17:23
PROVIDERS: PCP Family Medicine; Visit Provider Internal Medicine Endocrinology, Diabetes & Metabolism
DX: E03.9 Hypothyroidism, unspecified (principal)
CPT/HCPCS: 36415; 84439; 84443; 84481

== ENCOUNTER → 2022-01-09 17:19 | Outpatient (CLI) | payer OTHER, SELFPAY ==
--- NOTE | ~2022-01-09 | XR_ITS ---
EXAMINATION: XR lumbar spine 2-3V DATE: 01/09/2022 17:50 INDICATION: Low back pain TECHNIQUE: Anteroposterior and lateral views of the lumbar spine, and cone-down lateral view of the l umbosacral junction were obtained. COMPARISON: 08/25/2010 FINDINGS: There are 2 mm of stable anterolisthesis of L4 on L5. Bone alignment is otherwise normal. T he vertebral body heights are maintained. There is mild loss of intervertebral disc space height at m ultiple levels in the lumbar spine. There is severe facet osteoarthritis of the lower lumbar spine. S urgical clips in the right upper quadrant are likely from prior cholecystectomy. IMPRESSION: 1. Mild lumbar spondylosis without acute findings or significant interval change. Reviewed, dictated and finalized at location A. IMPRESSION: 1. Mild lumbar spondylosis without acute findings or significant interval dae perkins
--- NOTE | ~2022-01-09 | XR_ITS ---
EXAMINATION: XR hip RT min 2V DATE: 01/09/2022 17:46 INDICATION: Right hip pain. TECHNIQUE: 2 views of right hip were obtained. COMPARISON: Right femur radiographs 10/04/2020 FINDINGS: Bone alignment is normal. No fracture. There is mild right hip osteoarthritis. There is mod erate lumbar spondylosis. IMPRESSION: 1. Mild right hip osteoarthritis. Reviewed, dictated and finalized at location A.
--- NOTE | ~2022-01-09 | XR_ITS ---
EXAMINATION: XR knee RT 3V DATE: 01/09/2022 17:50 INDICATION: Right knee pain. TECHNIQUE: 3 views of right knee were obtained. COMPARISON: Right femur radiographs 10/04/2020 FINDINGS: Bone alignment is normal. No fracture. There is mild osteoarthritis of patellofemoral phu rtment characterized by tiny osteophytes. No knee joint effusion. IMPRESSION: 1. Mild right knee osteoarthritis. Reviewed, dictated and finalized at location A.
== END ==
PROVIDERS: PCP Family Medicine; Visit Provider Family Medicine
DX: M47.896 Other spondylosis, lumbar region (principal); M17.11 Unilateral primary osteoarthritis, right knee; M16.11 Unilateral primary osteoarthritis, right hip
CPT/HCPCS: 72100; 73502; 73562

== ENCOUNTER 2022-02-01 13:39 | Outpatient (CLI) | payer OTHER, SELFPAY ==
--- NOTE | ~2022-02-01 | MR_ITS ---
EXAMINATION: MR hip RT wo con DATE: 02/01/2022 14:49 INDICATION: Right labral tear presenting with right hip pain TECHNIQUE: Magnetic resonance imaging (MRI) of the right hip was performed without intravenous contr ast. Sequences included full-field axial PD-weighted FS FSE and T1-weighted FSE, coronal of the pelvi s with PD-weighted FS FSE, T2-weighted FSE and T1-weighted FSE, small field of view of the right hip with axial PD-weighted FS FSE, sagittal PD-weighted FS FSE, coronal PD-weighted FS FSE and coronal T2 weighted FSE. Additional radial T1-weighted FGR oriented orthogonal to the acetabular rim were obt ained for evaluation of the labrum. COMPARISON: None FINDINGS: Bones/labrum/cartilage: Mild lower lumbar levocurvature with mild spondylosis and moderate to severe facet osteoarthritis. Al ignment is otherwise normal. No fracture, avascular necrosis or pathologic marrow replacing process. Mild right hip osteoarthritis with partial thickness cartilage loss and underlying mild subarticular cystic change at the anterosuperior right acetabulum. There is a tear of the anterosuperior to super olateral right acetabulum. The left acetabular labrum appears intact is not diagnostically evaluated on the large [id number] images. Small marginal osteophytes along the left femoral head consistent with at least mild left hip osteoarthritis. Fluid: Symmetric physiologic amount of fluid within both hip joints. No bursitis or other abnormal fluid col lections. Soft tissues: Normal and symmetric muscle bulk and signal in the pelvis and visualized proximal thighs. The iliopso as, gluteal and proximal hamstring tendons are normal. Limited evaluation of visceral organs of the p jasen is unremarkable. No pathologically enlarged pelvic/inguinal lymphadenopathy. IMPRESSION: 1. Mild right hip osteoarthritis with high-grade chondromalacia at the anterosuperior acetabulum and anterosuperior to superolateral right labral tear. Reviewed, dictated and finalized at location B. IMPRESSION: 1. Mild right hip osteoarthritis with high-grade chondromalacia at the anterosu perior acetabulum and anterosuperior to superolateral right labral tear.
--- NOTE | ~2022-02-01 | MR_ITS ---
EXAMINATION: MR lumbar spine wo con DATE: 02/01/2022 14:49 INDICATION: Right-sided low back pain. TECHNIQUE: Magnetic resonance imaging (MRI) of the lumbar spine was performed without intravenous con trast. Sequences included sagittal T2-weighted FSE, sagittal T2-weighted FS FSE, sagittal T1-weighted FSE, and axial T2-weighted FSE. COMPARISON: Lumbar spine MRI 12/07/2011 FINDINGS: There is 3 mm anterolisthesis of L4 on L5. Vertebral body heights are normal. There is mild ly decreased disc height at L4-L5. The distal spinal cord signal intensity is normal. The conus medul fabio is at L1. The following disc levels are specifically discussed: L1-L2: The disc does not extend beyond the endplate margin. There is severe right and mild left facet joint osteoarthritis. There is no neural foraminal stenosis. There is no central canal stenosis. L2-L3: The disc is bulging. There is severe bilateral facet joint osteoarthritis. There is mild bilat eral neural foraminal stenosis. There is mild central canal stenosis. L3-L4: The disc is bulging. There is severe bilateral facet joint osteoarthritis. There is mild bilat eral neural foraminal stenosis. There is mild central canal stenosis. L4-L5: The disc does not extend beyond the endplate margin. There is severe bilateral facet joint ost eoarthritis. There is mild bilateral neural foraminal stenosis. There is no central canal stenosis. L5-S1: The disc does not extend beyond the endplate margin. There is severe bilateral facet joint ost eoarthritis. There is mild bilateral neural foraminal stenosis. There is no central canal stenosis. IMPRESSION: 1. Mild lumbar spondylosis, worsened from 12/07/2011. Reviewed, dictated and finalized at location A.
== END 2022-02-01 13:40 | disposition home or self-care (01) ==
LOC: ANHIMG 13:40
PROVIDERS: PCP Family Medicine; Visit Provider Family Medicine
DX: S73.191A Other sprain of right hip, initial encounter (principal); M25.551 Pain in right hip; M54.50 Low back pain, unspecified; M16.11 Unilateral primary osteoarthritis, right hip; M94.251 Chondromalacia, right hip; M47.816 Spondylosis without myelopathy or radiculopathy, lumbar region
CPT/HCPCS: 72148; 73721

== ENCOUNTER 2022-03-10 08:09 | Outpatient (CLI) | payer OTHER, SELFPAY ==
[2022-03-10 18:40] LABS: Phosphorus 4.7 mg/dL (2.5-4.5)
[2022-03-10 18:48] LABS: Cholesterol 123 mg/dL (0-200); HDL Direct 36 mg/dL; Triglycerides 150 mg/dL (<150)
[2022-03-10 18:52] LABS: LDL Cholesterol Direct 41 mg/dL
[2022-03-10 19:02] LABS: Vitamin D 25 Hydroxy 58.2 ng/mL
[2022-03-10 19:03] LABS: Iron 64 ug/dL (37-170)
[2022-03-10 19:21] LABS: Percent Iron Saturation 14 % (20-50)
== END 2022-03-10 08:10 | disposition home or self-care (01) ==
LOC: ANHGOSHLAB 08:11
PROVIDERS: PCP Family Medicine; Visit Provider Family Medicine
DX: D64.9 Anemia, unspecified (principal); E78.5 Hyperlipidemia, unspecified; E03.9 Hypothyroidism, unspecified; M81.0 Age-related osteoporosis without current pathological fracture
CPT/HCPCS: 36415; 80061; 82306; 82607; 82746; 83540; 83550; 83970; 84100

== ENCOUNTER 2022-03-21 14:26 | Emergency (ER) | payer OTHER, SELFPAY ==
--- NOTE | ~2022-03-21 | CT_ITS ---
EXAMINATION: CT abdomen pelvis w con DATE: 03/21/2022 17:12 INDICATION: Right lower quadrant abdominal pain for 2 days, initially starting in the epigastric area . Nausea, diarrhea. History of Crohn's disease. TECHNIQUE: Computed tomography (CT) of the abdomen and pelvis was performed with 100 CC Omnipaque 350 intravenous contrast. Automated exposure control and iterative reconstruction technique were employe d. Exam dose: 256.63 mGy-cm total exam DLP. COMPARISON: 01/04/2018 CT abdomen FINDINGS: The lung bases are clear for any or consolidation. Probable calcified 5 mm right lower lobe pulmonary granuloma, stable since 01/05/2018. Normal heart size. No pericardial or pleural effusion. Status post cholecystectomy. The liver, bile ducts, pancreas and pancreatic duct are unremarkable. St atus post cholecystectomy. Spleen is within upper limits of normal size. Normal morphology of the adrenal glands. No renal mass lesion or urinary tract calculus or hydroureteronephrosis is evident. The uterus, adnexa and urinary bladder are unremarkable. Normal caliber of the abdominal aorta. No intraperitoneal or retroperitoneal or pelvic mass lesion or adenopathy or ascites. Normal appendix. There are some fluid levels in the colon. There is wall thickening and submucosal fat deposition of t he small bowel and left colon wall thickening. No bowel obstruction or intraperitoneal free air. The sacroiliac joints are normal, without erosive change or ankylosis. No suspicious osteolytic or osteoblastic lesions are noted. IMPRESSION: Nonspecific infectious or inflammatory enterocolitis is suspected. There is a history of Crohn's disease. Normal appendix Status post cholecystectomy Reviewed, dictated and finalized at Location A. Reviewed, dictated and finalized at location B.
[2022-03-21 14:59] VITALS: BP 147/68; PULSE 107; RESP 20; TEMP 36.9; O2SAT 99
[2022-03-21 15:11] LABS: Basophils Percent Auto 0.5 % (0.2-1.2); Eosinophils Absolute Auto 0.1 K/mm3 (0-0.3); Eosinophils Percent Auto 2.1 % (0-4.4); Hematocrit 35.8 % (37.0-47.0); Hemoglobin 11.6 g/dL (12.0-15.0); Immature Granulocyte Absolute 0.01 K/mm3 (0.00-0.031); Immature Granulocyte Percent A 0.3 % (0-0.5); Lymphocytes Absolute Auto 1.41 K/mm3 (0.9-3.2); Lymphocytes Percent Auto 37.6 % (18.3-44.2); Mean Corpuscular HGB Conc 32.4 g/dl (32-36); Mean Corpuscular Hemoglobin 27.4 pg (26-34); Mean Corpuscular Volume 84.4 fl (80-100); Mean Platelet Volume 9.5 fl (7.4-10.4); Monocytes Absolute Auto 0.3 K/mm3 (0.1-0.6); Monocytes Percent Auto 8.5 % (2.6-8.5); Neutrophils Absolute Auto 1.9 K/mm3 (1.3-6.7); Platelet Count Result 175 k/mm3 (150-375); Red Blood Count 4.24 M/mm3 (4.2-5.4); Red Cell Distribution Width 13.8 % (11.5-14.5); White Blood Count 3.8 K/mm3 (4.5-10.0)
[2022-03-21 15:13] LABS: Add Urine Microscopic? YES; Appearance Urine Clear (Clear); Bilirubin Urine Negative (Negative); Blood Urine Negative (Negative); Color Urine Yellow (Yellow); Glucose Urine UA Negative (Negative); Ketones Urine Negative (Negative); Leukocyte Esterase Ur 2+ LEU/UL (Negative); Nitrate Urine Negative (Negative); Protein Urine Negative (Negative); Urobilinogen Urine 0.2 mg/dL (<2.0)
[2022-03-21 15:20] LABS: Alanine Aminotransferase 17 U/L (6-35); Albumin Level 4.5 g/dL (3.5-5.1); Alkaline Phosphatase 65 U/L (38-126); Anion Gap 7 mmol/L (8-16); Aspartate Amino Transferase 30 U/L (14-36); Bilirubin,Total 0.5 mg/dL (0.2-1.3); Blood Urea Nitrogen 9 mg/dL (7-17); Carbon Dioxide 23 mmol/L (22-30); Chloride 102 mmol/L (98-107); Estimated CRCL calculation 51 ml/min; Estimated Glomerular Filt Rate > 60; Glucose 141 mg/dL (65-110); Lipase 106 U/L (23-300); Potassium 3.4 mmol/L (3.4-5.0); Sodium 132 mmol/L (137-145)
[2022-03-21 15:21] LABS: Mucus Urine Rare /lpf; RBC Urine 0-2 /hpf (0-2); Squamous Epithelial Cell Urine Occasional /hpf (Few); WBC Urine 0-3 /hpf
--- NOTE | 2022-03-21 16:10 | ED.ABDPAIN ---
HPI - Abdominal Pain General Chief Complaint: Abdominal Pain Stated Complaint: right lower quadrant pain Time Seen by Provider: 03/21/22 16:09 Source: patient Mode of arrival: ambulatory Limitations: no limitations History of Present Illness HPI narrative: 61 years old white female came to the emergency room by private car complaining of right lower quadrant pain for the last 4 days, intermittent, worse with eating, she denies any fever or chills. History of Crohn's disease. She denies any rectal bleeding. History of cholecystectomy, hypothyroidism, hypertension, and hyperlipidemia. Related Data Home Medications Medication Instructions Recorded Confirmed cholestyramine (with sugar) 4 gram PO BID 05/04/20 07/14/21 oral powder levothyroxine 25 mcg tablet 25 mcg PO DAILY 10/06/21 (Synthroid) Allergies Allergy/AdvReac Type Severity Reaction Status Date / Time celecoxib Allergy Unknown swelling Verified 03/21/22 15:05 latex Allergy Unknown Skin Verified 03/21/22 15:05 Reaction Sulfa (Sulfonamide Allergy Unknown Skin Verified 03/21/22 15:05 Antibiotics) Reaction clindamycin Allergy Rash Verified 03/21/22 15:05 Review of Systems Review of Systems: All systems reviewed & are unremarkable except as noted in HPI and below PMFSH Past Medical History Medical History Bunion of great toe of left foot (~2004) Cholelithiasis 12/2003 Crohn disease Gastroesophageal reflux disease Hallux rigidus 2013 Hyperlipidemia Hypertension Hypothyroidism Surgical History Surgical History S/P arthroscopic partial medial meniscectomy Family History Family History Father Diabetes mellitus Hypertension Family history of elevated blood lipids Acute myocardial infarction Cerebrovascular accident Family history of kidney disease Family history of coronary artery disease Grandparent Family history of malignant neoplasm of stomach Mother Family history of lupus erythematosus Social History Social History Smoking status: Former smoker Alcohol use details: Currently does not consume alcohol Substance use: never Substance use type: does not use Gender identity (if verbalized by the patient): Female Sexual Orientation (if Verbalized by the Patient): Straight or Heterosexual Spiritual care concerns: No Exam Narrative: General appearance: Well-developed, well-nourished Skin: Normal color Head: Normocephalic, nontraumatic Eyes: Clear conjunctiva ENT: Oropharynx normal, ears normal, nose normal Neck: Supple, nontender Chest and respiratory: Airway patent, no respiratory distress, no accessory muscle use Heart: Regular rate/rhythm Abdomen: Soft, tenderness right lower quadrant, no guarding or rebound, no organomegaly, quiet bowel sounds Vascular: Normal peripheral pulses, normal capillary refill. 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
[2022-03-21] MEDS: SODIUM CHLORIDE 0.9% IV 1,000 ML 999 ML IV CONT (16:41)
[2022-03-21 18:25] VITALS: BP 122/70; PULSE 100; RESP 18; O2SAT 100
[2022-03-21 20:59] VITALS: BP 121/72; PULSE 93; RESP 20; TEMP 36.6; O2SAT 100
--- NOTE | 2022-03-21 21:59 | PC.NURSE ---
Pt unable to provide stool sample at this time. Pt provided with coffee per their request EDP notified and aware.
--- NOTE | 2022-03-21 23:34 | PC.NURSE ---
Pt resting in stretcher awaiting cdiff results.
[2022-03-21 23:55] LABS: Toxigenic C. Diff NEGATIVE (NEGATIVE)
[2022-03-22] VITALS: BP 128/86; PULSE 68; RESP 18; O2SAT 99
== END 2022-03-22 00:06 | disposition home or self-care (01) ==
PROVIDERS: Emergency Medicine; Emergency Provider Emergency Medicine; PCP Family Medicine
DX: K50.90 Crohn's disease, unspecified, without complications (principal); E78.5 Hyperlipidemia, unspecified; I10 Essential (primary) hypertension; E03.9 Hypothyroidism, unspecified; K21.9 Gastro-esophageal reflux disease without esophagitis; Z87.891 Personal history of nicotine dependence
CPT/HCPCS: 36415; 74177; 80053; 81001; 81025; 83690; 85025; 87493; 96360; 99284; J7030; Q9967

== ENCOUNTER → 2022-07-27 14:08 | Outpatient (CLI) | payer OTHER, SELFPAY ==
--- NOTE | ~2022-07-27 | XR_ITS ---
XR chest 2V DATE: 07/27/2022 14:20 INDICATION: Shortness of breath for 2 days TECHNIQUE: 2 views COMPARISON: 01/31/2019 CT chest 06/26/2017 PA chest FINDINGS: Normal heart size. No hilar or mediastinal enlargement. Aortic arch calcification. Moderate bilateral hyperinflation. No pulmonary infiltrate or consolidation, pleural effusion or pulm onary vascular congestion or pneumothorax. Status post cholecystectomy. 06/26/2017 PA chest IMPRESSION: Moderate hyperinflation; no active cardiopulmonary disease Reviewed, dictated and finalized at location A. KEN TENDER
== END ==
PROVIDERS: PCP Family Medicine; Visit Provider Family Medicine
DX: R06.02 Shortness of breath (principal); R91.8 Other nonspecific abnormal finding of lung field
CPT/HCPCS: 71046

== ENCOUNTER 2022-08-01 10:32 | Outpatient (CLI) | payer OTHER, SELFPAY ==
[2022-08-01 19:37] LABS: Hematocrit 26.3 % (37.0-47.0); Hemoglobin 9.4 g/dL (12.0-15.0); Mean Corpuscular HGB Conc 35.7 g/dl (32-36); Mean Platelet Volume 10.2 fl (7.4-10.4); Platelet Count Result 145 k/mm3 (150-375); Red Blood Count 3.13 M/mm3 (4.2-5.4); Red Cell Distribution Width 15.5 % (11.5-14.5); White Blood Count 3.9 K/mm3 (4.5-10.0)
[2022-08-01 19:56] LABS: Iron 35 ug/dL (37-170)
[2022-08-01 20:09] LABS: Percent Iron Saturation 9 % (20-50)
[2022-08-01 20:57] LABS: Alanine Aminotransferase 23 U/L (6-35); Albumin Level 3.4 g/dL (3.5-5.1); Alkaline Phosphatase 75 U/L (38-126); Anion Gap 4 mmol/L (8-16); Aspartate Amino Transferase 34 U/L (14-36); Bilirubin,Total 0.4 mg/dL (0.2-1.3); Blood Urea Nitrogen 11 mg/dL (7-17); Calcium 7.8 mg/dL (8.4-10.2); Carbon Dioxide 23 mmol/L (22-30); Chloride 104 mmol/L (98-107); Estimated Glomerular Filt Rate > 60; Glucose 93 mg/dL (65-110); Potassium 2.9 mmol/L (3.4-5.0); Sodium 131 mmol/L (137-145)
[2022-08-04 21:44] LABS: Vitamin D 1,25 (OH)2 Total 43 pg/mL (18-72); Vitamin D2 1,25 (OH)2 <8 pg/mL; Vitamin D3 1,25 (OH)2 43 pg/mL
== END 2022-08-01 10:33 | disposition home or self-care (01) ==
LOC: ANHGOSHLAB 10:34
PROVIDERS: PCP Family Medicine; Visit Provider Family Medicine
DX: D64.9 Anemia, unspecified (principal); E55.9 Vitamin D deficiency, unspecified; I10 Essential (primary) hypertension; K50.90 Crohn's disease, unspecified, without complications; Z79.899 Other long term (current) drug therapy
CPT/HCPCS: 36415; 80053; 82652; 82728; 83540; 83550; 85027

== ENCOUNTER 2022-08-08 08:54 | Outpatient (CLI) | payer OTHER, SELFPAY ==
[2022-08-08 20:32] LABS: Alanine Aminotransferase 21 U/L (6-35); Albumin Level 3.1 g/dL (3.5-5.1); Alkaline Phosphatase 75 U/L (38-126); Anion Gap 2 mmol/L (8-16); Aspartate Amino Transferase 36 U/L (14-36); Bilirubin,Total 0.5 mg/dL (0.2-1.3); Blood Urea Nitrogen 9 mg/dL (7-17); Calcium 7.6 mg/dL (8.4-10.2); Carbon Dioxide 30 mmol/L (22-30); Chloride 101 mmol/L (98-107); Estimated Glomerular Filt Rate > 60; Glucose 88 mg/dL (65-110); Potassium 4.1 mmol/L (3.4-5.0); Sodium 133 mmol/L (137-145)
[2022-08-08 20:42] LABS: Hematocrit 26.5 % (37.0-47.0); Hemoglobin 9.4 g/dL (12.0-15.0); Mean Corpuscular HGB Conc 35.5 g/dl (32-36); Mean Corpuscular Hemoglobin 32.8 pg (26-34); Mean Corpuscular Volume 92.3 fl (80-100); Mean Platelet Volume 10.6 fl (7.4-10.4); Platelet Count Result 158 k/mm3 (150-375); Red Blood Count 2.87 M/mm3 (4.2-5.4); Red Cell Distribution Width 15.6 % (11.5-14.5)
== END 2022-08-08 08:55 | disposition home or self-care (01) ==
LOC: ANHGOSHLAB 08:55
PROVIDERS: PCP Family Medicine; Visit Provider Family Medicine
DX: D64.9 Anemia, unspecified (principal); E87.1 Hypo-osmolality and hyponatremia; E87.6 Hypokalemia
CPT/HCPCS: 36415; 80053; 85027

== ENCOUNTER 2022-08-11 12:49 | Outpatient (CLI) | payer OTHER, SELFPAY ==
[2022-08-11 21:06] LABS: Folic Acid 8.8 ng/mL (2.76->20)
== END 2022-08-11 12:50 | disposition home or self-care (01) ==
LOC: ANHGOSHLAB 12:50
PROVIDERS: PCP Family Medicine; Visit Provider Family Medicine
DX: D64.9 Anemia, unspecified (principal)
CPT/HCPCS: 36415; 82607; 82746

== ENCOUNTER 2022-08-30 14:39 | Outpatient (CLI) | payer OTHER, SELFPAY ==
--- NOTE | ~2022-08-30 | MM_ITS ---
EXAMINATION: MM screening aakash BI w andres HISTORY: Screening mammogram TECHNIQUE: Craniocaudal and mediolateral oblique 3-D tomosynthesis images were obtained and synthetic 2-D images were generated. CAD analysis was submitted and interpreted. COMPARISON: 05/25/2021, 05/20/2020, 07/30/2018 bilateral screening mammogram examinations BREAST PARENCHYMAL COMPOSITION: There are scattered areas of fibroglandular density. FINDINGS: Occasional benign calcifications. There is no evidence of suspicious mass, calcification, o r architectural distortion to suggest malignancy in either breast. There has been no suspicious inter raimundo change. IMPRESSION: 1. No mammographic evidence of malignancy. 2. Recommend routine screening mammography in one year. BI-RADS Category 1: Negative Reviewed, dictated and finalized at location A. NATOR HAND
== END 2022-08-30 14:40 | disposition home or self-care (01) ==
LOC: ANHIMG 14:40
PROVIDERS: PCP Family Medicine; Visit Provider Family Medicine
DX: Z12.31 Encounter for screening mammogram for malignant neoplasm of breast (principal)
CPT/HCPCS: 77063; 77067

== ENCOUNTER 2022-10-16 08:33 | Outpatient (CLI) | payer OTHER, SELFPAY ==
[2022-10-16 19:06] LABS: Iron 53 ug/dL (37-170)
[2022-10-16 19:15] LABS: Cholesterol 84 mg/dL (0-200); HDL Direct 28 mg/dL; Triglycerides 116 mg/dL (<150)
[2022-10-16 19:16] LABS: Percent Iron Saturation 21 % (20-50)
[2022-10-16 19:25] LABS: LDL Cholesterol Direct 33 mg/dL
[2022-10-16 19:43] LABS: Parathyroid Intact 29.6 pg/mL (7.5-53.5)
[2022-10-16 19:48] LABS: Vitamin D 25 Hydroxy 26.6 ng/mL
[2022-10-16 20:28] LABS: Alanine Aminotransferase 28 U/L (6-35); Albumin Level 3.1 g/dL (3.5-5.1); Alkaline Phosphatase 126 U/L (38-126); Anion Gap 7 mmol/L (8-16); Aspartate Amino Transferase 35 U/L (14-36); Bilirubin,Total 0.4 mg/dL (0.2-1.3); Blood Urea Nitrogen 13 mg/dL (7-17); Calcium 8.3 mg/dL (8.4-10.2); Carbon Dioxide 21 mmol/L (22-30); Chloride 111 mmol/L (98-107); Estimated Glomerular Filt Rate > 60; Glucose 102 mg/dL (65-110); Phosphorus 4.4 mg/dL (2.5-4.5); Potassium 3.7 mmol/L (3.4-5.0); Sodium 139 mmol/L (137-145)
[2022-10-16 21:34] LABS: Folic Acid 9.7 ng/mL (2.76->20)
[2022-10-16 21:38] LABS: Basophils Percent Auto 0.6 % (0.2-1.2); Eosinophils Percent Auto 0.8 % (0-4.4); Hematocrit 35.1 % (37.0-47.0); Hemoglobin 11.1 g/dL (12.0-15.0); Immature Granulocyte Absolute 0.01 K/mm3 (0.00-0.031); Immature Granulocyte Percent A 0.3 % (0-0.5); Lymphocytes Absolute Auto 1.32 K/mm3 (0.9-3.2); Lymphocytes Percent Auto 36.6 % (18.3-44.2); Mean Corpuscular HGB Conc 31.6 g/dl (32-36); Mean Corpuscular Hemoglobin 27.5 pg (26-34); Mean Corpuscular Volume 86.9 fl (80-100); Mean Platelet Volume 12.2 fl (7.4-10.4); Monocytes Absolute Auto 0.3 K/mm3 (0.1-0.6); Monocytes Percent Auto 8.3 % (2.6-8.5); Neutrophils Absolute Auto 1.9 K/mm3 (1.3-6.7); Neutrophils Percent Auto 53.4 % (45.5-73.1); Platelet Count Result 88 k/mm3 (150-375); Red Blood Count 4.04 M/mm3 (4.2-5.4); Red Cell Distribution Width 15.2 % (11.5-14.5); White Blood Count 3.6 K/mm3 (4.5-10.0)
[2022-10-16 21:47] LABS: Ovalocytes 1+ (NORMAL); Platelet Estimate Decreased (Adequate); Schistocytes None Seen (NORMAL)
[2022-10-19 02:20] LABS: Thyroid Peroxidase Antibodies <1 IU/mL (<9)
[2022-10-19 04:28] LABS: Triiodothyronine T3 Free 2.9 pg/mL (2.3-4.2)
== END 2022-10-16 08:34 | disposition home or self-care (01) ==
LOC: ANHGOSHLAB 08:36
PROVIDERS: PCP Family Medicine; Referring Provider Internal Medicine Hematology & Oncology; Visit Provider Internal Medicine Endocrinology, Diabetes & Metabolism
DX: E78.5 Hyperlipidemia, unspecified (principal); D64.9 Anemia, unspecified; E03.9 Hypothyroidism, unspecified; M81.0 Age-related osteoporosis without current pathological fracture
CPT/HCPCS: 36415; 80053; 80061; 82306; 82607; 82728; 82746; 83540; 83550; 83970; 84100; 84439; 84443; 84481; 85025; 86376

== ENCOUNTER 2022-10-17 20:00 | Outpatient (NON) | payer OTHER, SELFPAY | END 2022-10-17 20:01 | disposition home or self-care (01) | LOC: ANHLAB 10-18 00:18 | PROVIDERS: PCP Family Medicine; Visit Provider Nurse Practitioner | DX: R39.9 Unspecified symptoms and signs involving the genitourinary system (principal) | CPT/HCPCS: 87086; 87088 ==

== ENCOUNTER 2022-11-02 09:47 | Outpatient (CLI) | payer OTHER, SELFPAY ==
[2022-11-02 18:50] LABS: Erythrocyte Sedimentation Rate 26 mm/hr (0-20)
[2022-11-02 21:24] LABS: Rheumatoid Factor < 12.0 IU/ML (<12)
[2022-11-07 21:35] LABS: Cyclic Citrullinated Peptide <16 Units (<20)
== END 2022-11-02 09:48 | disposition home or self-care (01) ==
LOC: ANHGOSHLAB 09:50
PROVIDERS: PCP Family Medicine; Visit Provider Internal Medicine Endocrinology, Diabetes & Metabolism
DX: M19.90 Unspecified osteoarthritis, unspecified site (principal)
CPT/HCPCS: 36415; 85652; 86038; 86140; 86430

== ENCOUNTER → 2022-11-06 13:19 | Outpatient (CLI) | payer OTHER, SELFPAY ==
--- NOTE | ~2022-11-06 | XR_ITS ---
Right foot Technique: AP, oblique, and lateral views were obtained. Clinical History: Pain Findings: No acute fracture or dislocation is seen. Osseous alignment is anatomic. There is moderate degenerative change at the first MTP joint. Remaining joint spaces are preserved. Soft tissues are un remarkable. Impression: Moderate osteoarthritis of the first MTP joint. Reviewed, dictated and finalized at [facility]. Impression: Moderate osteoarthritis of the first MTP joint.
--- NOTE | ~2022-11-06 | XR_ITS ---
Left foot Technique: AP, oblique, and lateral views were obtained. Clinical History: Pain Findings: No acute fracture or dislocation is seen. Moderate degenerative change of the first MTP marisela nt noted. Remaining joint spaces are intact. Soft tissues are unremarkable. Impression: Moderate degenerative change of the first MTP joint. Reviewed, dictated and finalized at [facility]. Impression: Moderate degenerative change of the first MTP joint.
== END ==
PROVIDERS: PCP Family Medicine; Visit Provider Family Medicine
DX: M19.071 Primary osteoarthritis, right ankle and foot (principal); M19.072 Primary osteoarthritis, left ankle and foot
CPT/HCPCS: 73630

== ENCOUNTER 2022-11-08 11:59 | Outpatient (CLI) | payer OTHER, SELFPAY ==
[2022-11-08 12:27] LABS: Anion Gap 3 mmol/L (8-16); Blood Urea Nitrogen 9 mg/dL (7-17); Calcium 6.9 mg/dL (8.4-10.2); Carbon Dioxide 23 mmol/L (22-30); Chloride 108 mmol/L (98-107); Estimated Glomerular Filt Rate > 60; Glucose 108 mg/dL (65-110); Potassium 3.2 mmol/L (3.4-5.0); Sodium 134 mmol/L (137-145)
[2022-11-08 12:28] LABS: Alanine Aminotransferase 38 U/L (6-35); Albumin Level 2.3 g/dL (3.5-5.1); Alkaline Phosphatase 168 U/L (38-126); Aspartate Amino Transferase 43 U/L (14-36); Bilirubin,Total 0.4 mg/dL (0.2-1.3)
[2022-11-08 12:42] LABS: NT Pro B Type Natriuretic Pept 571 pg/mL (19.9-100)
[2022-11-08 13:55] LABS: Creatinine Urine 8.8 mg/dL
[2022-11-08 14:37] LABS: Microalbumin Urine Random < 6.0 mg/L (0-16.7)
== END 2022-11-08 12:00 | disposition home or self-care (01) ==
LOC: ANHLAB 12:01
PROVIDERS: PCP Family Medicine; Visit Provider Family Medicine
DX: D64.9 Anemia, unspecified (principal); E03.9 Hypothyroidism, unspecified; K50.90 Crohn's disease, unspecified, without complications; M79.89 Other specified soft tissue disorders
CPT/HCPCS: 36415; 80053; 82043; 83880

== ENCOUNTER 2022-11-15 08:29 | Outpatient (CLI) | payer OTHER, SELFPAY ==
--- NOTE | 2022-11-15 08:53 | ECHO_ITS ---
Patient Info Name: Muriel Wade Age: 62 years : 1960 Gender: Female Ht: 60 in Wt: 110 lbs BSA: 1.46 m2 HR: 92 bpm BP: 143 / 79 mmHg Heart Rhythm: Sinus Rhythm Technical Quality: Fair Exam Date: 11/15/2022 9:22 AM Exam Location: [facility] Pulmonary Patient Status: Outpatient Admit Date: 11/15/2022 Staff Ordering Physician: Sosa Flowers DO Roof Technician: Rafaela Sewell RDCS Attending Provider: Sosa Flowers DO Referring Physician: Kristie VARGHESE; Exam Type: CA echo doppler color flow Study Info Indications - Other specified soft tissue disorder Complete two-dimensional, color flow and Doppler transthoracic echocardiogram is performed. Strain analysis performed. Summary 1. Complete two-dimensional, color flow and Doppler transthoracic echocardiogram is performed. 2. Left ventricular chamber dimension is normal. 3. Left ventricular systolic function is normal, estimated at 60-65%. 4. The left ventricular diastolic function is grade I diastolic dysfunction. 5. E/e' 11 is mildly elevated. 6. Global longitudinal strain is mildly abnormal at -16.5%. 7. There is mild mitral valve regurgitation. 8. There is mild tricuspid valve regurgitation. 9. No pulmonary hypertension, estimated pulmonary arterial systolic pressure is 29 mmHg. Left Ventricle E/e' 11 is mildly elevated. Global longitudinal strain is mildly abnormal at -16.5%. Left ventricular chamber dimension is normal. Left ventricular systolic function is normal, estimated at 60-65%. The left ventricular diastolic function is grade I diastolic dysfunction. Right Ventricle Right ventricular systolic function is normal and with normal TAPSE 2.0 cm. Right ventricular chamber dimension is normal. Left Atria Left atrial chamber dimension is normal. Right Atria Right atrial chamber dimension is normal. Aortic Valve The aortic valve is trileaflet. There is no aortic valve stenosis. There is no aortic valve regurgitation. Pulmonic Valve There is no pulmonic regurgitation. Mitral Valve There is no mitral valve stenosis. There is mild mitral valve regurgitation. Tricuspid Valve There is mild tricuspid valve regurgitation. No pulmonary hypertension, estimated pulmonary arterial systolic pressure is 29 mmHg. Pericardium/Pleural There is no pericardial effusion. Inferior Vena Cava Normal inferior vena cava with >50% collapse upon inspiration consistent with normal right atrial pressure, 5 mmHg. Aorta The aortic root size at the sinus of Valsalva is normal. Left Ventricular Outflow Tract Name Value Normal LVOT 2D LVOT Diameter 2.0 cm LVOT Doppler LVOT Peak Gradient 5 mmHg LVOT Mean Gradient 2 mmHg LVOT VTI 18 cm LVOT VTI/AV VTI Ratio 0.7 LVOT Stroke Volume 55 ml LVOT CO 4.3 l/min LVOT CI 2.9 l/min/m2 Pulmonic Valve Name Value Normal
== END 2022-11-15 08:30 | disposition home or self-care (01) ==
PROVIDERS: PCP Family Medicine; Visit Provider Family Medicine
DX: M79.89 Other specified soft tissue disorders (principal); R93.1 Abnormal findings on diagnostic imaging of heart and coronary circulation; I34.0 Nonrheumatic mitral (valve) insufficiency; I07.1 Rheumatic tricuspid insufficiency
CPT/HCPCS: 93306

== ENCOUNTER 2022-11-15 10:24 | Outpatient (CLI) | payer OTHER, SELFPAY ==
[2022-11-15 11:18] LABS: Basophils Percent Auto 0.3 % (0.2-1.2); Eosinophils Percent Auto 0.3 % (0-4.4); Hemoglobin 12.3 g/dL (12.0-15.0); Immature Granulocyte Absolute 0.02 K/mm3 (0.00-0.031); Immature Granulocyte Percent A 0.6 % (0-0.5); Lymphocytes Absolute Auto 1.15 K/mm3 (0.9-3.2); Lymphocytes Percent Auto 37.2 % (18.3-44.2); Mean Corpuscular HGB Conc 32.4 g/dl (32-36); Mean Corpuscular Hemoglobin 28.6 pg (26-34); Mean Corpuscular Volume 88.4 fl (80-100); Mean Platelet Volume 9.5 fl (7.4-10.4); Monocytes Absolute Auto 0.2 K/mm3 (0.1-0.6); Monocytes Percent Auto 6.8 % (2.6-8.5); Neutrophils Absolute Auto 1.7 K/mm3 (1.3-6.7); Neutrophils Percent Auto 54.8 % (45.5-73.1); Platelet Count Result 178 k/mm3 (150-375); White Blood Count 3.1 K/mm3 (4.5-10.0)
[2022-11-15 11:26] LABS: Alanine Aminotransferase 50 U/L (6-35); Albumin Level 2.4 g/dL (3.5-5.1); Alkaline Phosphatase 236 U/L (38-126); Anion Gap 3 mmol/L (8-16); Aspartate Amino Transferase 62 U/L (14-36); Bilirubin,Total 0.7 mg/dL (0.2-1.3); Blood Urea Nitrogen 9 mg/dL (7-17); Calcium 6.9 mg/dL (8.4-10.2); Carbon Dioxide 23 mmol/L (22-30); Chloride 105 mmol/L (98-107); Creatine Kinase 45 U/L (30-135); Estimated Glomerular Filt Rate > 60; Glucose 86 mg/dL (65-110); Potassium 4.2 mmol/L (3.4-5.0); Sodium 131 mmol/L (137-145)
[2022-11-18 13:09] LABS: GGT 72 U/L (3-65)
[2022-11-19 02:21] LABS: Aldolase 10.3 U/L (<=8.1)
== END 2022-11-15 10:25 | disposition home or self-care (01) ==
PROVIDERS: PCP Family Medicine; Visit Provider Family Medicine
DX: K76.0 Fatty (change of) liver, not elsewhere classified (principal)
CPT/HCPCS: 36415; 80053; 82085; 82248; 82550; 82977; 85025

== ENCOUNTER 2022-11-16 14:08 | Outpatient (CLI) | payer OTHER, SELFPAY ==
[2022-11-16 15:50] LABS: Toxigenic C. Diff NEGATIVE (NEGATIVE)
[2022-11-24 20:32] LABS: Calprotectin, Stool 796 mcg/g
== END 2022-11-16 14:09 | disposition home or self-care (01) ==
LOC: ANHLAB 14:14
PROVIDERS: PCP Family Medicine
DX: K50.819 Crohn's disease of both small and large intestine with unspecified complications (principal); R19.7 Diarrhea, unspecified
CPT/HCPCS: 83993; 87045; 87427; 87493

== ENCOUNTER 2022-11-20 02:23 | Day surgery (SDC) | payer OTHER, SELFPAY ==
[2022-11-09 09:40] VITALS: BMI 21.4
--- NOTE | 2022-11-09 09:46 | PC.NURSE ---
Addendum entered by Nory Llanos RN 11/15/22 12:26: PT TO ARRIVE AT 0730 ON 11/20/22 FOR SURGERY AT 0930. LAST DOSE OF VITAMINS 11/16. Original Note: Report to the Outpatient Waiting Room, entrance under the green pavilion located off [facility], at time 0700 on date 11/10/22. Planned Procedure Time: 0900. Time changes happen often and if your time is changed the preop area will call you the afternoon before. - You and your visitor will be asked to self-screen and do not enter if you have any COVID symptoms. - A mask is optional within the hospital at this time. Patients may have clear liquids (water, carbonated beverages, clear teas, apple juice) until 3 hours prior to surgery with a maximum of 20 ounces. - No food from midnight until time of surgery Take the following medications with a SIP of water the morning of surgery: PAIN PILL IF NEEDED DO NOT STOP ANY OF YOUR OTHER PRESCRIPTION MEDICATIONS PRIOR TO SURGERY?EXCEPT THE FOLLOWING Medications to discontinue per physician: VITAMINS/SUPPLEMENTS Date to take last dose: NO MORE UNTIL AFTER SURGERY Please no make-up, nail zimbabwean, hairspray, perfume, deodorant, or body powder the day of surgery. No jewelry (including any body piercings) or valuables the day of surgery, leave them at home. Please take a shower or bath the night before, or the morning of, surgery with an antibacterial soap. Wear comfortable, loose fitting clothing. - Jewelry must be removed prior to entering the operating room. Rings and piercings that are not removed may be cut off. - The hospital will not accept responsibility for valuables. - Please leave all valuables, including medications, at home the day of surgery. If you are going home after surgery, a licensed shuttle driver must drive you home. - NO public transportation without another adult if you receive anesthesia. - We recommend that an adult stay with you for 24 hours following discharge. - We also recommend that you do not drive, make important decision, drink alcoholic beverages, or take any drugs that were not prescribed by your health care provider for at least 24 hours after your discharge time. Follow any additional instructions given to you from your surgeon. If you or anyone in your household have experienced Covid symptoms in the past week, please notify your surgeon or the nurse liaison at the phone number below for possible testing. Telephone instructions given to PT - SERA DYE and asked if any additional questions and then verbalized understanding. Patient advised to call surgeon office or pre surgery nurse liaison [phone] if any additional questions.
--- NOTE | 2022-11-15 12:25 | PC.NURSE ---
Pt states no changes in health history since initial interview. Medications updated. New pre-op instructions reviewed with pt. Pt denies further questions at this time.
[2022-11-20] VITALS (9 sets, daily range): BP systolic 90–131; BP diastolic 54–75; PULSE 80–104; RESP 12–16; TEMP 36.3–37; O2SAT 96–100
--- NOTE | 2022-11-20 07:21 | WPDHPUPDATE1 ---
History and Physical Update Update Date/Time: 11/20/22 07:21 History and Physical has been reviewed, including an updated exam of the patient. There are NO changes in the patient's condition. Risks, benefits, and alternatives have been discussed and questions answered. Patient agrees to proceed with procedure.
--- NOTE | 2022-11-20 07:43 | ECG_ITS ---
Measurements Intervals [place] Rate: 90 P: 51 AL: 162 QRS: -28 QRSD: 126 T: 77 QT: 377 QTc: 463 Interpretive Statements SINUS RHYTHM LEFT BUNDLE BRANCH BLOCK ABNORMAL ECG NO PREVIOUS ECG AVAILABLE FOR COMPARISON Electronically Signed On 11-20-2022 8:18:58 CDT by Raymundo Tyler D.O.
[2022-11-20] MEDS: ACETAMINOPHEN 500 MG TABLET 1000 MG PO (08:08)
[2022-11-20] MEDS: LACTATED RINGERS 1,000 ML 30 ML IV CONT ×2 (08:17→10:27)
--- NOTE | 2022-11-20 08:28 | WPDANESEPPF ---
Anes - Initial Pre Proc Eval Procedure: Operation Date: 11/20/22 09:30 Proposed Procedures p Rectal Examination Under Anesthesia, Hemorrhoidectomy - Rossy Sue MD Date/Time: 11/20/22 08:28 Surgeon: Rossy Sue MD Pre Op Diagnosis: thrombosed hemorrhoid Patient Data Age: 62 Gender: F Height: 1.52 m Weight: 46.2 kg Last Vital Signs Temp 37.0 C 11/20/22 07:38 Pulse 104 H 11/20/22 07:38 Resp 16 11/20/22 07:38 BP 127/67 11/20/22 07:38 Pulse Ox 100 11/20/22 07:38 O2 Del Method Room Air 11/20/22 07:38 Allergies Allergy/AdvReac Type Severity Reaction Status Date / Time celecoxib Allergy Intermediate swelling Verified 11/20/22 07:53 clindamycin Allergy Intermediate Rash Verified 11/20/22 07:53 latex Allergy Mild Rash Verified 11/20/22 07:53 Sulfa (Sulfonamide Allergy Mild Rash Verified 11/20/22 07:53 Antibiotics) fentanyl AdvReac Mild Nausea Verified 11/20/22 07:53 Home Medications Medication Instructions Recorded Confirmed Type levothyroxine 25 mcg tablet 25 mcg PO QTUTHSASU 06/21/22 11/20/22 History (Synthroid) levothyroxine 50 mcg tablet 50 mcg PO QMWF 06/21/22 11/20/22 History (Synthroid) omeprazole 20 mg capsule,delayed 20 mg PO BID 06/21/22 11/20/22 History release atorvastatin 10 mg tablet See Rx Instructions .Route 09/04/22 11/20/22 Rx .COMPLEX #90 tabs calcium carbonate 600 mg calcium 600 mg PO DAILY 11/01/22 11/20/22 History (1,500 mg) tablet (Calcium) cholecalciferol (vitamin D3) 50 50 mcg PO DAILY 11/01/22 11/20/22 History mcg (2,000 unit) capsule hydrocodone 5 mg-acetaminophen 325 1 tablet PO Q6H PRN pain #14 tabs 11/01/22 11/20/22 Rx mg tablet mecobalamin (vitamin B12) 1,000 1,000 mcg PO DAILY 11/01/22 11/20/22 History mcg chewable tablet potassium chloride 20 mEq 20 meq PO BID 11/15/22 11/20/22 History tablet,extended release Other studies: Admit Date: ? ? 11/15/2022 Staff Ordering Physician: ? ? Sosa Flowers DO Personnel Counselor: ? ? Rafaela Sewell RDCS Attending Provider: ? ? Sosa Flowers DO Referring Physician: ? ? Kristie VARGHESE; Exam Type: ? ? CA echo doppler color flow Study Info Indications ?? ? - Other specified soft tissue disorder Complete two-dimensional, color flow and Doppler transthoracic echocardiogram is performed. ? Strain analysis performed. Account #: ? ? [id number] Summary ? 1. Complete two-dimensional, color flow and Doppler transthoracic echocardiogram is performed. ? 2. Left ventricular chamber dimension is normal. ? 3. Left ventricular systolic function is normal, estimated at 60-65%. ? 4. The left ventricular diastolic function is grade I diastolic dysfunction. ? 5. E/e' 11 is mildly elevated. ? 6. Global longitudinal strain is mildly abnormal at -16.5%. ? 7. There is mild mitral valve regurgitation. ? 8. There is mild tricuspid valve regurgitation. ? 9. No pulmonary hypertension, estimated pulmonary arterial systolic pressure is 29 mmHg. Patient hx anesthesia problems: none Family hx anesthesia problems: none Results Review: All pre-operative results and documents have been reviewed as part of the pre-operative evaluation. [facility] Past Medical History Medical History Anxiety Bunion of great toe of left foot (~2004) Cholelithiasis 12/2003 Crohn disease Gastroesophageal reflux disease Hallux rigidus 2014 History of blood transfusion Hyperlipidemia Hypertension Hypothyroidism Surgical History Surgical History H/O toe surgery S/P arthroscopic partial medial meniscectomy S/P bunionectomy S/P cholecystectomy Family History Family History Father Diabetes mellitus Hypertension Family history of elevated blood lipids Acute myocardial infarction Cerebrovascular accident Family history
--- NOTE | 2022-11-20 08:29 | SUR.PREOP ---
toradol on order set not given due to allergy ,dr shah aware.
[2022-11-20] MEDS: ceFAZolin 2 GM/D5W 50 ML 2 GM/50 ML BAG IVPB (09:03)
[2022-11-20] MEDS: LIDOCAINE HCL 1% LOCAL INJ 10 ML VIAL 20 ML INFILTRATE (09:23)
[2022-11-20] MEDS: LIDOCAINE HCL 2% GEL UROJET 10 ML PKG MUCOUS MEM (09:28)
--- NOTE | 2022-11-20 09:41 | W.PM.PROC2 ---
Procedure Note - Detailed Date of Procedure 11/20/22 Pre-op Diagnosis thrombosed hemorrhoids, bleeding external hemorrhoids Post-op Diagnosis Same Procedure Performed Exam under anesthesia, external hemorrhoidectomy involving left lateral and right anterior positions Surgeon Rossy Sue MD Anesthesia General Indications 62 y/o F c multiple external hemorrhoids c frequent flares causing pain, bleeding refractory to conservative measures. Findings multiple external hemorrhoids predominately in L lateral and R anterior, thrombosed hemorrhoid in L lateral Description of Procedure The patient was taken to the operating room and placed in the modified lithotomy position. After adequate induction of general anesthesia, the patient was prepped and draped in the normal sterile fashion. A time-out was then done to verify the patient's identity, as well as the procedure being performed. I began by doing a digital exam. There was noted to be multiple external hemorrhoids, however no internal hemorrhoids were noted. At this point, a bilateral pudendal block was done. Then used the lone Star retractor to further evaluate the anal canal as well as rectum, other than external hemorrhoids no other pathology was noted. I then began excising the external hemorrhoids using the hand-held LigaSure device. The hemorrhoids were noted to be in the left lateral and right anterior positions. There was a large thrombosed hemorrhoid in the left lateral position. Multiple hemorrhoids were excised using the LigaSure. The specimens will be sent to pathology for further review. Hemostasis was noted at all excision sites. I then placed a piece of Gelfoam covered with lidocaine jelly into the rectal vault. The patient tolerated the procedure and was extubated in the operating room postop. She will be transferred to the recovery room in stable condition. Implants Gelfoam covered with lidocaine jelly in the rectal vault Estimated Blood Loss 10 Drains No Packing Yes Pathology Yes Complications No immediate complications Condition Stable Disposition PACU [facility] Billing Surgery - Charge Forward: Surgery Billing
[2022-11-20] MEDS: HYDROmorphone HCL INJ (*CRX) 1 MG/ML SYR 0.2 MG IV PUSH ×3 (10:20→10:37)
[2022-11-20] MEDS: oxyCODONE HCL (*CRX) 5 MG TAB IR PO (11:10)
== END 2022-11-20 11:33 | disposition home or self-care (01) ==
PROVIDERS: PCP Family Medicine; Visit Provider Surgery
PROC: (CPT 46320; principal; 2022-11-20 09:30)
DX: K64.5 Perianal venous thrombosis (principal); K64.4 Residual hemorrhoidal skin tags; I10 Essential (primary) hypertension; E78.5 Hyperlipidemia, unspecified; E03.9 Hypothyroidism, unspecified; K21.9 Gastro-esophageal reflux disease without esophagitis; K50.90 Crohn's disease, unspecified, without complications; Z87.891 Personal history of nicotine dependence
CPT/HCPCS: 46320; 46250; 88304; 93005; A9270; J0690; J1100; J1170; J2250; J2405; J2704; J3010; J7120

== ENCOUNTER 2022-11-27 11:22 | Outpatient (CLI) | payer OTHER, SELFPAY ==
--- NOTE | ~2022-11-27 | US_ITS ---
EXAMINATION:US venous doppler LE RT INDICATION:Localized edema TECHNIQUE: Multiple grayscale, color flow and Doppler images of the right lower extremity deep venous systems were obtained and reviewed. COMPARISON:No prior studies for comparison. FINDINGS: The common femoral, superficial femoral and popliteal veins demonstrate normal respiratory variation, augmentation and compressibility. Color flow is also seen within the posterior tibial, pe roneal, greater saphenous and profunda veins. IMPRESSION: 1: No lower extremity deep venous thrombosis. Reviewed, dictated and finalized at location B.
== END 2022-11-27 11:23 | disposition home or self-care (01) ==
PROVIDERS: PCP Family Medicine; Visit Provider Internal Medicine Cardiovascular Disease
DX: R60.0 Localized edema (principal)
CPT/HCPCS: 93971

== ENCOUNTER 2022-11-29 08:31 | Outpatient (CLI) | payer OTHER, SELFPAY ==
--- NOTE | ~2022-11-29 | US_ITS ---
US right upper quadrant INDICATION: Abnormal liver enzymes. PROCEDURE: Realtime right upper abdominal ultrasound. COMPARISON: No prior studies for comparison. FINDINGS: The pancreas is normal without focal mass or pancreatic ductal dilation. Liver echotexture is increased, consistent with fatty infiltration. There is normal directional flow in the portal ve in. Gallbladder is surgically absent. Common bile duct measures 14 mm mm. No sonographic Varghese's sign. IMPRESSION: 1: Status post cholecystectomy with enlargement of the common bile duct measuring 14 mm. 2: Hepatic steatosis. Reviewed, dictated and finalized at location B. IMPRESSION: 1: Status post cholecystectomy with enlargement of the common bile duct measuri ng 14 mm. 2: Hepatic steatosis.
== END 2022-11-29 08:32 | disposition home or self-care (01) ==
LOC: ANHIMG 08:33
PROVIDERS: PCP Family Medicine; Visit Provider Family Medicine
DX: R74.8 Abnormal levels of other serum enzymes (principal); K76.0 Fatty (change of) liver, not elsewhere classified; Z90.49 Acquired absence of other specified parts of digestive tract
CPT/HCPCS: 76705

== ENCOUNTER 2022-11-30 13:29 | Outpatient (CLI) | payer OTHER, SELFPAY ==
[2022-11-30 19:24] LABS: Alanine Aminotransferase 43 U/L (6-35); Albumin Level 2.2 g/dL (3.5-5.1); Alkaline Phosphatase 223 U/L (38-126); Anion Gap 4 mmol/L (8-16); Aspartate Amino Transferase 53 U/L (14-36); Bilirubin,Total 0.3 mg/dL (0.2-1.3); Blood Urea Nitrogen 12 mg/dL (7-17); Calcium 6.7 mg/dL (8.4-10.2); Carbon Dioxide 26 mmol/L (22-30); Chloride 99 mmol/L (98-107); Estimated Glomerular Filt Rate > 60; Glucose 84 mg/dL (65-110); Potassium 3.5 mmol/L (3.4-5.0); Sodium 129 mmol/L (137-145)
== END 2022-11-30 13:30 | disposition home or self-care (01) ==
LOC: ANHGOSHLAB 13:31
PROVIDERS: PCP Family Medicine; Visit Provider Family Medicine
DX: R74.8 Abnormal levels of other serum enzymes (principal); E87.1 Hypo-osmolality and hyponatremia; E87.6 Hypokalemia
CPT/HCPCS: 36415; 80053

== ENCOUNTER 2022-12-21 08:03 | Outpatient (CLI) | payer OTHER, SELFPAY ==
--- NOTE | ~2022-12-21 | NM_ITS ---
EXAMINATION: NM pretty stress w perfusion DATE: 12/21/2022 10:19 INDICATION: Dyspnea and exertion. TECHNIQUE: Rest images were obtained following intravenous administration of 10.0 mCi Tc99m tetrofosm in (Myoview). The patient was infused intravenously with Lexiscan (regadenoson). Then, 31.7 mCi Tc99m tetrofosmin (Myoview) was administered intravenously, and stress images were obtained. Data was radha nstructed into short axis and horizontal and vertical long axis SPECT images. Gated SPECT images were also obtained. COMPARISON: CT abdomen and pelvis 03/21/2022 FINDINGS: There is no definite reversible or fixed perfusion abnormality to suggest ischemia or infar ction. There is no segmental wall motion abnormality. Left ventricular ejection fraction measures > 70%. IMPRESSION: 1. No definite ischemia or infarct. 2. Normal left ventricular ejection fraction measuring >70%. Reviewed, dictated and finalized at location A.
--- NOTE | 2022-12-21 08:54 | EST_ITS ---
Patient Info Name: Muriel Wade Age: 62 years : 1960 Gender: Female Ht: 60 in Wt: 105 lbs BSA: 1.42 m2 HR: 93 bpm BP: 143 / 67 mmHg Heart Rhythm: Sinus Rhythm Exam Date: 12/21/2022 9:13 AM Exam Location: [facility] Stress Patient Status: Outpatient Admit Date: 12/21/2022 Staff Ordering Physician: Raymundo Tyler DO Attending Provider: Raymundo Tyler DO Exercise Technologist: Tiffanie Garcia CT Exercise Physician: Raymundo Tyler DO Exam Type: CA stress pretty w NM Study Info Indications R06.09 - Other forms of dyspnea A regadenoson stress test was performed. Summary 1. 1. Inconclusive lexiscan stress test for ischemic ST changes by ECG criteria due to baseline LBBB. 2. 2. Baseline hypertension. 3. 3. Nuclear scan to follow and will be reported separately. Please correlate with it. 4. 4. Patient informed of the above results. Protocol: Lexiscan Stress ECG Details Stage: REST Duration (min): 0 min : 45 sec HR (bpm): 93 SBP (mmHg): 143 DBP (mmHg): 67 Stage: REST Duration (min): 5 min : 56 sec HR (bpm): 100 SBP (mmHg): 143 DBP (mmHg): 67 Stage: STAGE 1 Duration (min): 1 min : 0 sec HR (bpm): 128 SBP (mmHg): 152 DBP (mmHg): 78 Stage: RECOVERY Duration (min): 1 min : 0 sec HR (bpm): 125 SBP (mmHg): 152 DBP (mmHg): 78 Stage: RECOVERY Duration (min): 2 min : 0 sec HR (bpm): 123 SBP (mmHg): 152 DBP (mmHg): 78 Stage: RECOVERY Duration (min): 2 min : 55 sec HR (bpm): 121 SBP (mmHg): 155 DBP (mmHg): 72 Rest HR: 100 bpm Peak HR: 129 bpm Rest Sys BP: 143 mmHg Peak Sys BP: 155 mmHg Max Pred HR: 156 bpm % Max Pred HR: 83 % Target HR: 133 bpm Max RPP: 19,995 bpm*mmHg Termination Reason: Completed protocol Cardiac Symptoms: Shortness of breath Total Time: 1 min : 0 sec Rest Mueller BP: 67 mmHg Peak Mueller BP: 72 mmHg Total Dose: 0.4 mg Resting ECG Sinus rhythm, LBBB. Stress ECG No ST changes. Arrhythmias None. Report Signatures
== END 2022-12-21 08:04 | disposition home or self-care (01) ==
PROVIDERS: PCP Family Medicine; Visit Provider Internal Medicine Cardiovascular Disease
DX: R06.09 Other forms of dyspnea (principal); I10 Essential (primary) hypertension
CPT/HCPCS: 78452; 93017; A9502; J2785

== ENCOUNTER 2022-12-22 15:03 | Outpatient (CLI) | payer OTHER, SELFPAY ==
[2022-12-22 15:31] LABS: Basophils Percent Auto 0.7 % (0.2-1.2); Eosinophils Percent Auto 0.5 % (0-4.4); Hematocrit 32.2 % (37.0-47.0); Hemoglobin 10.4 g/dL (12.0-15.0); Immature Granulocyte Absolute 0.02 K/mm3 (0.00-0.031); Immature Granulocyte Percent A 0.5 % (0-0.5); Lymphocytes Absolute Auto 1.73 K/mm3 (0.9-3.2); Lymphocytes Percent Auto 42.4 % (18.3-44.2); Mean Corpuscular HGB Conc 32.3 g/dl (32-36); Mean Corpuscular Volume 89.7 fl (80-100); Mean Platelet Volume 9.1 fl (7.4-10.4); Monocytes Absolute Auto 0.3 K/mm3 (0.1-0.6); Monocytes Percent Auto 6.6 % (2.6-8.5); Neutrophils Percent Auto 49.3 % (45.5-73.1); Platelet Count Result 123 k/mm3 (150-375); Red Blood Count 3.59 M/mm3 (4.2-5.4); Red Cell Distribution Width 15.4 % (11.5-14.5); White Blood Count 4.1 K/mm3 (4.5-10.0)
[2022-12-22 15:41] LABS: Alanine Aminotransferase 46 U/L (6-35); Alkaline Phosphatase 172 U/L (38-126); Anion Gap 2 mmol/L (8-16); Aspartate Amino Transferase 49 U/L (14-36); Bilirubin,Total 0.3 mg/dL (0.2-1.3); Blood Urea Nitrogen 10 mg/dL (7-17); Calcium 6.5 mg/dL (8.4-10.2); Carbon Dioxide 22 mmol/L (22-30); Chloride 105 mmol/L (98-107); Estimated Glomerular Filt Rate > 60; Glucose 96 mg/dL (65-110); Potassium 3.6 mmol/L (3.4-5.0); Sodium 129 mmol/L (137-145)
[2022-12-22 15:44] LABS: INR 1.4; Prothrombin Time 17.9 Seconds (11.1-14.7)
[2022-12-26 16:13] LABS: GGT 96 U/L (3-65)
== END 2022-12-22 15:04 | disposition home or self-care (01) ==
LOC: ANHLAB 15:06
PROVIDERS: PCP Family Medicine
DX: K76.0 Fatty (change of) liver, not elsewhere classified (principal)
CPT/HCPCS: 36415; 80048; 80076; 82977; 85025; 85610

== ENCOUNTER 2023-01-05 17:24 | Emergency (ER) | payer OTHER, SELFPAY ==
--- NOTE | ~2023-01-05 | XR_ITS ---
EXAMINATION: XR chest 1V portable Exam Date/Time: 01/05/2023 18:00 CDT HISTORY: dyspnea on exertion Comparison: 07/27/2022. RESULT: Lines, tubes, and devices: Cholecystectomy clips. Lungs and pleura: Clear. Cardiomediastinal silhouette: Stable. Other: No acute osseous or upper abdominal finding. IMPRESSION: No acute cardiopulmonary process. Reviewed, dictated and finalized at location K.
[2023-01-05 17:33] VITALS: BP 149/68; PULSE 75; RESP 16; TEMP 36.1; O2SAT 100
--- NOTE | 2023-01-05 18:01 | ECG_ITS ---
Measurements Intervals [place] Rate: 72 P: 52 ID: [id number] QRS: -8 QRSD: 135 T: 66 QT: 386 QTc: 423 Interpretive Statements SINUS RHYTHM LEFT BUNDLE BRANCH BLOCK [120+ ms QRS DURATION, 80+ ms Q/S IN V1/V2, 85+ ms R IN I/aVL/V5/V6] ABNORMAL ECG COMPARED TO ECG 11/20/2022 08:00:20 NO SIGNIFICANT CHANGES Electronically Signed On 01-06-2023 9:13:55 CDT by Phi Park M.D.
--- NOTE | 2023-01-05 18:07 | ED.GENADULT ---
HPI - General Adult General Chief complaint: Recheck/Abnormal Lab/Rx <Asa Lr PA-C - Last Filed: 01/06/23 01:25> Stated complaint: ABNORMAL LABS <HEAVEN Charles Last Filed: 01/06/23 01:25> Time Seen by Provider: 01/05/23 17:50 <Asa Lr PA-C - Last Filed: 01/06/23 01:25> Source: patient <HEAVEN Charles Last Filed: 01/06/23 01:25> Mode of arrival: ambulatory <HEAVEN Charles Last Filed: 01/06/23 01:25> Limitations: no limitations <HEAVEN Charles Last Filed: 01/06/23 01:25> History of Present Illness HPI narrative: This is a 62-year-old female with PMH of Crohn's, LBBB, HTN, hypothyroidism who presents to the ED with chief complaint of abnormal blood labs. She was sent by her GI doctor, Dr. Ambrosio at [facility] after they apparently yolis a potassium at 2.8 today. She was being treated for recent Crohn's flare with prednisone. She states that the prednisone is largely helped to the flare of Crohn's, she still has occasional loose stools. Denies any nausea or vomiting. Denies melena or bloody stools. Secondarily she does note dyspnea on exertion that has been ongoing for the past several months. Denies any chest pain or palpitations at this time. She also notes bilateral lower leg swelling that is new in the past few days. Denies fevers, chills, urinary symptoms, abdominal or back pain. Per chart review: Cardiovascular Procedures Echo/MUGA:: 11/15/22 Echo: EF 60-65%, grade I diastolic dysfunction (E/e' 11), mild MR/TR. Nuc stress test 12/21/22: 1. No definite ischemia or infarct. 2. Normal left ventricular ejection fraction measuring >70%. <HEAVEN Charles Last Filed: 01/06/23 01:25> Related Data Home medications: Home Medications Medication Instructions Recorded Confirmed levothyroxine 25 mcg tablet 25 mcg PO QTUTHSASU 06/21/22 12/06/22 (Synthroid) levothyroxine 50 mcg tablet 50 mcg PO QMWF 06/21/22 12/06/22 (Synthroid) omeprazole 20 mg capsule,delayed 20 mg PO BID 06/21/22 12/06/22 release calcium carbonate 600 mg calcium 600 mg PO DAILY 11/01/22 12/06/22 (1,500 mg) tablet (Calcium) cholecalciferol (vitamin D3) 50 50 mcg PO DAILY 11/01/22 12/06/22 mcg (2,000 unit) capsule mecobalamin (vitamin B12) 1,000 1,000 mcg PO DAILY 11/01/22 12/06/22 mcg chewable tablet <Asa Lr PA-C - Last Filed: 01/06/23 01:25> Allergies/adverse reactions: Allergies Allergy/AdvReac Type Severity Reaction Status Date / Time celecoxib Allergy Intermediate swelling Verified 01/05/23 18:11 clindamycin Allergy Intermediate Rash Verified 01/05/23 18:11 latex Allergy Mild Rash Verified 01/05/23 18:11 Sulfa (Sulfonamide Allergy Mild Rash Verified 01/05/23 18:11 Antibiotics) fentanyl AdvReac Mild Nausea Verified 01/05/23 18:11 <Asa Lr PA-C - Last Filed: 01/06/23 01:25> Review of Systems Review of Systems: CONSTITUTIONAL: Denies fever, chills, or sweats. EYES: Denies visual changes, redness, or discharge. ENT: Denies rhinorrhea, congestion, sore throat, or otalgia. CARDIOVASCULAR: See HPI RESPIRATORY: Denies cough or dyspnea. GASTROINTESTINAL: See HPI GENITOURINARY: Denies dysuria or hematuria. SKIN: Denies rash or itching. MUSCULOSKELETAL: Denies back pain, joint pain, or myalgia. NEUROLOGIC: Denies headache, numbness, dizziness, or weakness. PSYCHIATRIC: Denies anxiety or depression. <Asa Lr PA-C - Last Filed: 01/06/23 01:25> [facility] Past Medical History Medical History: Medical History (Updated 01/06/23 @ 00:00 by Background Daemon) Anxiety Bunion of great toe of left foot (~2004) Cholelithiasis 12/2003 Crohn disease Gastroesophageal reflux disease Hallux rigidus 2014 History of blood transfusion Hyperlipidemia Hypertension Hypothyroidism <Asa Lr PA-C - Last Filed: 01/06/23 01:25> Surgical History Surgical History: Surgical History (Updated 12/06
[2023-01-05 18:44] LABS: Basophils Percent Auto 0.3 % (0.2-1.2); Hematocrit 30.5 % (37.0-47.0); Hemoglobin 10.2 g/dL (12.0-15.0); Immature Granulocyte Absolute 0.06 K/mm3 (0.00-0.031); Immature Granulocyte Percent A 1.8 % (0-0.5); Lymphocytes Absolute Auto 1.03 K/mm3 (0.9-3.2); Lymphocytes Percent Auto 30.3 % (18.3-44.2); Mean Corpuscular HGB Conc 33.4 g/dl (32-36); Mean Corpuscular Hemoglobin 29.3 pg (26-34); Mean Corpuscular Volume 87.6 fl (80-100); Mean Platelet Volume 8.9 fl (7.4-10.4); Monocytes Absolute Auto 0.2 K/mm3 (0.1-0.6); Monocytes Percent Auto 4.7 % (2.6-8.5); Neutrophils Absolute Auto 2.1 K/mm3 (1.3-6.7); Neutrophils Percent Auto 62.9 % (45.5-73.1); Platelet Count Result 175 k/mm3 (150-375); Red Blood Count 3.48 M/mm3 (4.2-5.4); Red Cell Distribution Width 14.9 % (11.5-14.5); White Blood Count 3.4 K/mm3 (4.5-10.0)
[2023-01-05 19:00] LABS: Alanine Aminotransferase 55 U/L (6-35); Albumin Level 2.1 g/dL (3.5-5.1); Alkaline Phosphatase 165 U/L (38-126); Anion Gap 7 mmol/L (8-16); Aspartate Amino Transferase 66 U/L (14-36); Bilirubin,Total 0.6 mg/dL (0.2-1.3); Blood Urea Nitrogen 10 mg/dL (7-17); Calcium 6.5 mg/dL (8.4-10.2); Carbon Dioxide 19 mmol/L (22-30); Chloride 110 mmol/L (98-107); Estimated CRCL calculation 58 ml/min; Estimated Glomerular Filt Rate > 60; Glucose 116 mg/dL (65-110); Potassium 3.5 mmol/L (3.4-5.0); Sodium 136 mmol/L (137-145)
[2023-01-05] MEDS: POTASSIUM CHLORIDE 20 MEQ PACKET (FOR LIQUID) 40 MEQ PO (19:08)
[2023-01-05 19:11] LABS: NT Pro B Type Natriuretic Pept 1710 pg/mL (19.9-100); Troponin I 0.019 ng/mL (0.000-0.034)
[2023-01-05] MEDS: CALCIUM GLUC 1,000 MG/NS 50 ML 1,000 MG/50 ML BAG 100 MG IVPB (19:25)
[2023-01-05 20:04] VITALS: BP 148/78; PULSE 70; RESP 15; O2SAT 99
== END 2023-01-05 20:06 | disposition home or self-care (01) ==
PROVIDERS: Emergency Provider Physician Assistant; PCP Family Medicine
DX: E88.09 Other disorders of plasma-protein metabolism, not elsewhere classified (principal); E83.51 Hypocalcemia; R60.0 Localized edema; K50.90 Crohn's disease, unspecified, without complications; I10 Essential (primary) hypertension; E03.9 Hypothyroidism, unspecified; E78.5 Hyperlipidemia, unspecified; K21.9 Gastro-esophageal reflux disease without esophagitis; I44.7 Left bundle-branch block, unspecified; Z90.49 Acquired absence of other specified parts of digestive tract; Z87.891 Personal history of nicotine dependence
CPT/HCPCS: 36415; 71045; 80053; 83880; 84484; 85025; 93005; 96365; 99284; A9270; J0612

== ENCOUNTER 2023-01-12 13:46 | Outpatient (CLI) | payer OTHER, SELFPAY ==
[2023-01-12 14:42] LABS: Hematocrit 33.1 % (37.0-47.0); Hemoglobin 10.7 g/dL (12.0-15.0); Mean Corpuscular HGB Conc 32.3 g/dl (32-36); Mean Corpuscular Hemoglobin 29.4 pg (26-34); Mean Corpuscular Volume 90.9 fl (80-100); Mean Platelet Volume 8.7 fl (7.4-10.4); Platelet Count Result 153 k/mm3 (150-375); Red Blood Count 3.64 M/mm3 (4.2-5.4); Red Cell Distribution Width 14.9 % (11.5-14.5)
[2023-01-12 14:49] LABS: Alanine Aminotransferase 105 U/L (6-35); Albumin Level 2.3 g/dL (3.5-5.1); Alkaline Phosphatase 175 U/L (38-126); Anion Gap 3 mmol/L (8-16); Aspartate Amino Transferase 88 U/L (14-36); Bilirubin,Total 0.5 mg/dL (0.2-1.3); Blood Urea Nitrogen 12 mg/dL (7-17); Calcium 6.6 mg/dL (8.4-10.2); Carbon Dioxide 24 mmol/L (22-30); Chloride 104 mmol/L (98-107); Estimated Glomerular Filt Rate > 60; Glucose 143 mg/dL (65-110); Sodium 131 mmol/L (137-145)
== END 2023-01-12 13:47 | disposition home or self-care (01) ==
LOC: ANHLAB 13:47
PROVIDERS: PCP Family Medicine; Visit Provider Family Medicine
DX: E87.1 Hypo-osmolality and hyponatremia (principal); E87.6 Hypokalemia
CPT/HCPCS: 36415; 80053; 85027

== ENCOUNTER 2023-01-24 11:37 | Outpatient (CLI) | payer OTHER, SELFPAY ==
[2023-01-24 19:09] LABS: Alanine Aminotransferase 67 U/L (6-35); Albumin Level 2.5 g/dL (3.5-5.1); Alkaline Phosphatase 139 U/L (38-126); Anion Gap 3 mmol/L (8-16); Aspartate Amino Transferase 67 U/L (14-36); Bilirubin,Total 0.5 mg/dL (0.2-1.3); Blood Urea Nitrogen 14 mg/dL (7-17); Calcium 7.1 mg/dL (8.4-10.2); Carbon Dioxide 24 mmol/L (22-30); Chloride 102 mmol/L (98-107); Estimated Glomerular Filt Rate > 60; Glucose 97 mg/dL (65-110); Potassium 3.7 mmol/L (3.4-5.0); Sodium 129 mmol/L (137-145)
== END 2023-01-24 11:38 | disposition home or self-care (01) ==
LOC: ANHGOSHLAB 11:38
PROVIDERS: PCP Family Medicine; Visit Provider Family Medicine
DX: E87.1 Hypo-osmolality and hyponatremia (principal); E87.6 Hypokalemia; E03.9 Hypothyroidism, unspecified
CPT/HCPCS: 36415; 80053; 84443

== ENCOUNTER 2023-01-25 06:59 | Outpatient (CLI) | payer OTHER, SELFPAY ==
--- NOTE | 2023-01-30 12:25 | WPDHOMESLEEP ---
Sleep Study - Home Unattended Date of Study: 01/25/23 Ordering Provider: Raymundo Tyler DO Interpreting Provider: Cynthia Leigh DO Home Sleep Study Type: Watch PAT Height: 1.52 m Weight: 47.627 kg Body Mass Index: 20.5 Neck Circumference (inches): 11 [place]: 12 Reason for Sleep Study Sleep-onset and sleep-maintenance insomnia Sleep History The patient is a 62-year-old female with hypothyroidism, GERD, Crohn's disease, anxiety, hypertension, hyperlipidemia and history of tobacco use that had a sleep study ordered by her e commerce web developer for evaluation of sleep apnea. 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 The patient denies awakening from sleep short of breath. She occasionally awakens at night with heartburn, belching or cough. She rarely snores and is never loud enough that others complain. She occasionally has trouble sleeping when she has a cold. She denies waking up gasping for air throughout the night. She occasionally sweats excessively at night. She occasionally has heart palpitations or irregular heartbeats during the night. She occasionally falls asleep during the day but never while driving. She denies sleep paralysis, cataplexy and hypnagogic / hypnopompic hallucinations. She occasionally has trouble at school or work due to sleepiness. She occasionally feels afraid of going to sleep. She denies having nightmares. She occasionally remembers her dreams. She frequently has thoughts racing through her mind. She occasionally feels sad or depressed. She frequently has anxiety. She denies having muscular tension. She denies noticing parts of her body jerk. She occasionally kicks during the night. She occasionally has crawling and aching feelings in her legs and occasionally experiences leg pain during the night. She occasionally grinds her teeth during sleep but never awakens with morning jaw pain. She is occasionally bothered by pain during the day but never awakened by pain during the night. She frequently wakes up feeling stiff in the morning. She occasionally wakes up with sore or achy muscles. She denies waking up with pain in the neck, spine or other joints. She goes to bed between 11:00 p.m. to midnight on weekdays and any time after midnight on the weekends. He can take an hour or longer for her to fall asleep. She wakes up 3-4 times throughout the night. When she awakened she will use the restroom or a walker around the house and it typically takes 30 minutes to fall back asleep. She wakes up at 5:15 a.m. on weekdays and between 8-830 a.m. on the weekends. She typically gets 4-5 hours of sleep per night. She will stay in bed for 10 minutes after waking up in the morning. She currently lives with her and children. She denies consuming any caffeinated beverages within 2 hours of bedtime. She denies engaging in physical exercise before bedtime. He will watch television before falling asleep. She will take naps in the afternoon or the evening and they are refreshing. She denies consuming caffeinated beverages throughout the day. She quit smoking cigarettes in 1993. She denies alcohol and recreational drug use. [facility] Past Medical History Medical History Anxiety Bunion of great toe of left foot (~2004) Cholelithiasis 12/2003 Crohn disease Gastroesophageal reflux disease Hallux rigidus 2013 History of blood transfusion Hyperlipidemia Hypertension Hypothyroidism Surgical History Surgical History H/O toe surgery History of hemorrhoidectomy 11/20/2022 - Exam under anesthesia, external hemorrhoidectomy involving left lateral and right anterior positions S/P arthroscopic partial medial meniscectomy S/P bunionectomy S/P cholecystectomy Family History Family History Father Diabetes mellitus
[2023-01-30 12:26] VITALS: BMI 20.5
== END 2023-01-26 09:49 | disposition home or self-care (01) ==
PROVIDERS: PCP Family Medicine; Visit Provider Internal Medicine Cardiovascular Disease
DX: G47.10 Hypersomnia, unspecified (principal); G47.9 Sleep disorder, unspecified; G47.00 Insomnia, unspecified
CPT/HCPCS: 95800

== ENCOUNTER 2023-02-16 09:17 | Outpatient (CLI) | payer OTHER, SELFPAY ==
[2023-02-16 09:46] LABS: Mean Corpuscular HGB Conc 31.6 g/dl (32-36); Mean Corpuscular Hemoglobin 29.5 pg (26-34); Mean Corpuscular Volume 93.4 fl (80-100); Mean Platelet Volume 9.1 fl (7.4-10.4); Platelet Count Result 205 k/mm3 (150-375); Red Blood Count 4.07 M/mm3 (4.2-5.4); Red Cell Distribution Width 15.5 % (11.5-14.5); White Blood Count 3.6 K/mm3 (4.5-10.0)
[2023-02-16 09:56] LABS: Alanine Aminotransferase 68 U/L (6-35); Albumin Level 2.4 g/dL (3.5-5.1); Alkaline Phosphatase 253 U/L (38-126); Anion Gap 2 mmol/L (8-16); Aspartate Amino Transferase 115 U/L (14-36); Bilirubin,Total 0.5 mg/dL (0.2-1.3); Blood Urea Nitrogen 13 mg/dL (7-17); Calcium 7.2 mg/dL (8.4-10.2); Carbon Dioxide 24 mmol/L (22-30); Chloride 107 mmol/L (98-107); Cholesterol 105 mg/dL (0-200); Estimated Glomerular Filt Rate > 60; Glucose 78 mg/dL (65-110); HDL Direct 34 mg/dL; Sodium 133 mmol/L (137-145); Triglycerides 115 mg/dL (<150)
[2023-02-16 09:58] LABS: Magnesium 1.6 mg/dL (1.6-2.3)
[2023-02-16 10:07] LABS: LDL Cholesterol Direct 47 mg/dL
[2023-02-16 11:03] LABS: Folic Acid 9.1 ng/mL (2.76->20); Vitamin B12 > 1000.0 pg/mL (239-931)
[2023-02-20 17:23] LABS: Vitamin D 1,25 (OH)2 Total 55 pg/mL (18-72); Vitamin D2 1,25 (OH)2 <8 pg/mL; Vitamin D3 1,25 (OH)2 55 pg/mL
== END 2023-02-16 09:18 | disposition home or self-care (01) ==
PROVIDERS: PCP Family Medicine; Referring Provider Internal Medicine Cardiovascular Disease; Visit Provider Family Medicine
DX: D64.9 Anemia, unspecified (principal); E53.8 Deficiency of other specified B group vitamins; E55.9 Vitamin D deficiency, unspecified; E78.5 Hyperlipidemia, unspecified; I10 Essential (primary) hypertension; R60.0 Localized edema; E03.9 Hypothyroidism, unspecified
CPT/HCPCS: 36415; 80053; 80061; 82607; 82652; 82746; 83735; 85027

== ENCOUNTER → 2023-02-20 14:46 | Outpatient (CLI) | payer OTHER, SELFPAY ==
--- NOTE | ~2023-02-20 | XR_ITS ---
EXAM: XR shoulder RT min 2V DATE: 02/20/2023 15:05 HISTORY: no injury upper right rib and shoulder pain for 3 days . COMPARISON: None available. FINDINGS: Normal mineralization. No fracture or dislocation. No lytic or blastic lesion. Moderate AC joint and mild glenohumeral joint degenerative change. No erosion or periosteal change. Soft tissues within normal limits. IMPRESSION: No acute osseous finding in the right shoulder. Reviewed, dictated and finalized at location K.
--- NOTE | ~2023-02-20 | XR_ITS ---
AP and oblique views of the right ribs, and PA and lateral chest radiographs Clinical History: Pain Findings: No rib fracture is seen. Osseous alignment is anatomic. Lungs are clear, without focal cons olidation or pleural effusion. Cardiomediastinal contour is within normal limits. Soft tissues are un remarkable. Impression: No rib fracture is seen. Clear lungs. Reviewed, dictated and finalized at location . Impression: No rib fracture is seen. Clear lungs.
== END ==
PROVIDERS: PCP Family Medicine; Visit Provider Family Medicine
DX: M25.511 Pain in right shoulder (principal); R07.81 Pleurodynia
CPT/HCPCS: 71046; 71100; 73030

== ENCOUNTER 2023-02-28 15:56 | Outpatient (CLI) | payer OTHER, SELFPAY ==
[2023-02-28 16:27] LABS: Basophils Percent Auto 0.8 % (0.2-1.2); Eosinophils Percent Auto 0.5 % (0-4.4); Hematocrit 32.4 % (37.0-47.0); Hemoglobin 10.2 g/dL (12.0-15.0); Immature Granulocyte Absolute 0.04 K/mm3 (0.00-0.031); Immature Granulocyte Percent A 1.1 % (0-0.5); Lymphocytes Absolute Auto 1.77 K/mm3 (0.9-3.2); Lymphocytes Percent Auto 48.5 % (18.3-44.2); Mean Corpuscular HGB Conc 31.5 g/dl (32-36); Mean Corpuscular Hemoglobin 29.8 pg (26-34); Mean Corpuscular Volume 94.7 fl (80-100); Mean Platelet Volume 8.9 fl (7.4-10.4); Monocytes Absolute Auto 0.3 K/mm3 (0.1-0.6); Neutrophils Absolute Auto 1.5 K/mm3 (1.3-6.7); Neutrophils Percent Auto 40.1 % (45.5-73.1); Platelet Count Result 217 k/mm3 (150-375); Red Blood Count 3.42 M/mm3 (4.2-5.4); Red Cell Distribution Width 14.9 % (11.5-14.5); White Blood Count 3.7 K/mm3 (4.5-10.0)
[2023-02-28 16:37] LABS: Alanine Aminotransferase 50 U/L (6-35); Albumin Level 2.4 g/dL (3.5-5.1); Alkaline Phosphatase 171 U/L (38-126); Anion Gap 2 mmol/L (8-16); Aspartate Amino Transferase 76 U/L (14-36); Bilirubin,Total 0.3 mg/dL (0.2-1.3); Blood Urea Nitrogen 12 mg/dL (7-17); Calcium 6.8 mg/dL (8.4-10.2); Carbon Dioxide 22 mmol/L (22-30); Chloride 109 mmol/L (98-107); Creatine Kinase 22 U/L (30-135); Estimated Glomerular Filt Rate > 60; Glucose 96 mg/dL (65-110); Magnesium 1.6 mg/dL (1.6-2.3); Potassium 3.6 mmol/L (3.4-5.0); Sodium 133 mmol/L (137-145)
[2023-02-28 16:40] LABS: INR 1.3; Prothrombin Time 16.6 Seconds (11.1-14.7)
[2023-02-28 17:12] LABS: Free T4 Free Thyroxine 0.95 ng/mL (0.78-2.19)
[2023-03-05 15:24] LABS: Triiodothyronine T3 Free 2.6 pg/mL (2.3-4.2)
== END 2023-02-28 15:57 | disposition home or self-care (01) ==
PROVIDERS: PCP Family Medicine; Visit Provider Internal Medicine Endocrinology, Diabetes & Metabolism
DX: K76.0 Fatty (change of) liver, not elsewhere classified (principal); R74.8 Abnormal levels of other serum enzymes
CPT/HCPCS: 36415; 80053; 82085; 82525; 82550; 83735; 84100; 84439; 84443; 84481; 85025; 85610

== ENCOUNTER 2023-04-05 14:32 | Outpatient (CLI) | payer OTHER, SELFPAY ==
[2023-04-05 15:46] LABS: Hemoglobin 10.3 g/dL (12.0-15.0); Mean Corpuscular HGB Conc 32.2 g/dl (32-36); Mean Corpuscular Hemoglobin 30.9 pg (26-34); Mean Corpuscular Volume 96.1 fl (80-100); Mean Platelet Volume 9.3 fl (7.4-10.4); Platelet Count Result 206 k/mm3 (150-375); Red Blood Count 3.33 M/mm3 (4.2-5.4); Red Cell Distribution Width 14.1 % (11.5-14.5); White Blood Count 6.9 K/mm3 (4.5-10.0)
[2023-04-05 16:01] LABS: Cholesterol 112 mg/dL (0-200); HDL Direct 31 mg/dL; Triglycerides 157 mg/dL (<150)
[2023-04-05 16:12] LABS: LDL Cholesterol Direct 54 mg/dL
[2023-04-05 16:29] LABS: Thyroid Stimulating Hormone 0.991 uIU/mL (0.465-4.680)
[2023-04-05 17:35] LABS: Iron 58 ug/dL (37-170)
[2023-04-05 17:44] LABS: Percent Iron Saturation 25 % (20-50)
[2023-04-06 13:17] LABS: Basophils Percent Auto 0.6 % (0.2-1.2); Eosinophils Percent Auto 0.3 % (0-4.4); Immature Granulocyte Absolute 0.05 K/mm3 (0.00-0.031); Immature Granulocyte Percent A 0.8 % (0-0.5); Lymphocytes Absolute Auto 2.92 K/mm3 (0.9-3.2); Lymphocytes Percent Auto 45.2 % (18.3-44.2); Monocytes Absolute Auto 0.6 K/mm3 (0.1-0.6); Monocytes Percent Auto 8.7 % (2.6-8.5); Neutrophils Absolute Auto 2.9 K/mm3 (1.3-6.7); Neutrophils Percent Auto 44.4 % (45.5-73.1)
[2023-04-06 13:47] LABS: Alanine Aminotransferase 40 U/L (6-35); Albumin Level 2.7 g/dL (3.5-5.1); Alkaline Phosphatase 126 U/L (38-126); Anion Gap 7 mmol/L (8-16); Aspartate Amino Transferase 54 U/L (14-36); Bilirubin,Total 0.3 mg/dL (0.2-1.3); Blood Urea Nitrogen 17 mg/dL (7-17); Calcium 7.4 mg/dL (8.4-10.2); Carbon Dioxide 19 mmol/L (22-30); Chloride 103 mmol/L (98-107); Estimated Glomerular Filt Rate > 60; Glucose 90 mg/dL (65-110); Potassium 4.1 mmol/L (3.4-5.0); Sodium 129 mmol/L (137-145)
[2023-04-10 15:42] LABS: Vitamin D 1,25 (OH)2 Total 63 pg/mL (18-72); Vitamin D2 1,25 (OH)2 <8 pg/mL; Vitamin D3 1,25 (OH)2 63 pg/mL
== END 2023-04-05 14:33 | disposition home or self-care (01) ==
PROVIDERS: PCP Family Medicine
DX: D64.9 Anemia, unspecified (principal); E55.9 Vitamin D deficiency, unspecified; E78.00 Pure hypercholesterolemia, unspecified; E78.5 Hyperlipidemia, unspecified; I10 Essential (primary) hypertension; K50.90 Crohn's disease, unspecified, without complications; R63.4 Abnormal weight loss; Z79.899 Other long term (current) drug therapy; E43 Unspecified severe protein-calorie malnutrition
CPT/HCPCS: 36415; 80053; 80061; 82652; 82728; 83540; 83550; 84134; 84443; 85025; 85027

== ENCOUNTER → 2023-04-16 16:10 | Outpatient (CLI) | payer OTHER, SELFPAY ==
--- NOTE | ~2023-04-16 | XR_ITS ---
EXAMINATION: XR lumbar spine 6V w bending DATE: 04/16/2023 16:24 INDICATION: Low back pain. TECHNIQUE: 7 views of lumbar spine including flexion and extension views and standing views were obta ined. COMPARISON: Lumbar spine radiograph 01/09/2022 FINDINGS: There is 3 mm anterolisthesis of L4 on L5. There is 9 degrees levocurvature of lumbar spine . There is no abnormal motion with flexion or extension Vertebral body heights are normal. There is m ildly decreased disc height at L2-L3, L3-L4, and L4-L5. There are endplate osteophytes at most levels . There is multilevel facet joint osteoarthritis, severe bilaterally at L4-L5 and L5-S1 and on the ri ght at L3-L4. Surgical clips in the right upper quadrant are likely from cholecystectomy. IMPRESSION: 1. Mild lumbar spondylosis. Reviewed, dictated and finalized at location A. IMPRESSION: 1. Mild lumbar spondylosis.
== END ==
PROVIDERS: PCP Family Medicine; Visit Provider Family Medicine
DX: M47.896 Other spondylosis, lumbar region (principal)
CPT/HCPCS: 72114

== ENCOUNTER 2023-04-30 13:23 | Outpatient (CLI) | payer OTHER, SELFPAY ==
--- NOTE | ~2023-04-30 | DEXA_ITS ---
Bone Density Report Name: MEREDITH DYE Age: 63 Sex: Female Ethnicity: White Date of : 1960 Indication: osteopenia; height loss; inflammatory bowel disease; prior fracture; postmenopausal Referring Provider: SELVIN MCCOY Study: Bone densitometry was performed. Exam Date: April 30, 2023 Accession number: [id number] Bone Density: Region BMD T-score Z-score Classification AP Spine(L1-L4) 0.810 -2.2 -0.4 Osteopenia Femoral Neck (Left) 0.605 -2.2 -0.7 Osteopenia Total Hip (Left) 0.680 -2.1 -0.9 Osteopenia Femoral Neck (Right) 0.578 -2.4 -0.9 Osteopenia Total Hip (Right) 0.629 -2.6 -1.3 Osteoporosis Total Hip Mean 0.655 -2.4 -1.1 Osteopenia World Health Organization criteria for BMD impression classify patients as: Normal (T-score at or above -1.0), Osteopenia (T-score between -1.0 and -2.5), or Osteoporosis (T-score at or below -2.5). 10-year Fracture Risk: FRAX not reported because: Some T-score for Spine Total or Hip Total or Femoral Neck at or below -2.5 Prior hip or vertebral fracture Previous Exams: Region Exam Age BMD T-score BMD Change BMD Change Date g/cm2 vs Baseline vs Previous AP Spine (L1-L4) 04/30/2023 63 0.810 -2.2 -0.064 (-7.3%) -0.047 (-5.5%) 02/02/2021 60 0.857 -1.7 -0.017 (-1.9%) -0.033 (-3.7%) 01/31/2019 58 0.890 -1.4 0.016 (1.8%)# -0.005 (-0.5%) 03/01/2016 55 0.895 -1.4 0.021 (2.4%)# 0.021 (2.4%)# 07/30/2013 53 0.874 -1.6 Total Hip(Left) 04/30/2023 63 0.680 -2.1 -0.168 (-19.8% -0.081 (-10.6% 02/02/2021 60 0.761 -1.5 -0.088 (-10.3% 0.026 (3.5%) 01/31/2019 58 0.735 -1.7 -0.114 (-13.4% -0.060 (-7.5%) 03/01/2016 55 0.795 -1.2 -0.054 (-6.3%) -0.054 (-6.3%) 07/30/2013 53 0.849 -0.8 Total Hip(Right) 04/30/2023 63 0.629 -2.6 -0.146 (-18.8% -0.083 (-11.6% 02/02/2021 60 0.712 -1.9 -0.063 (-8.1%) -0.032 (-4.3%) 01/31/2019 58 0.744 -1.6 -0.031 (-4.0%) -0.023 (-3.0%) 03/01/2016 55 0.767 -1.4 -0.008 (-1.0%) -0.008 (-1.0%) 07/30/2013 53 0.775 -1.4 *Denotes significance at 95% confidence level, LSC for AP Spine = 0.022 g/cm2, LSC for Total Hip = 0.027 g/cm2 # Denotes dissimilar scan types or analysis methods Clinical Information Provided by Patient: Have had a previous hip or vertebral fracture Has had a low trauma fracture Has used the following medications: Vitamin D, Calcium Has the following medical conditions: Inflammatory bowel diseases, crohns Patient maximum height was 61 Men
== END 2023-04-30 13:24 | disposition home or self-care (01) ==
LOC: ANHIMG 13:26
PROVIDERS: PCP Family Medicine; Visit Provider Family Medicine
DX: Z78.0 Asymptomatic menopausal state (principal); M85.88 Other specified disorders of bone density and structure, other site; M85.852 Other specified disorders of bone density and structure, left thigh; M85.851 Other specified disorders of bone density and structure, right thigh
CPT/HCPCS: 77080

== ENCOUNTER 2023-10-28 18:08 | Emergency (ER) | payer MEDICARE, SELFPAY ==
[2023-10-28 18:15] VITALS: BP 140/71; PULSE 100; RESP 15; TEMP 36.8; O2SAT 100
--- NOTE | 2023-10-28 22:11 | ED.GENADULT ---
HPI - General Adult General Chief complaint: Extremity Injury, Lower Stated complaint: left buttocks pain Time Seen by Provider: 10/28/23 21:47 History of Present Illness HPI narrative: Patient is a 63-year-old female presents emergency department with chief complaint of left sciatic pain. The patient reports that she has prior history of a bowel resection and colostomy the patient reports that she also has Crohn's and is currently on a prednisone taper at 50 mg a day the patient states that last several days she has had pain it has been traveling down her left gluteal region down her back of her thigh patient states that the pain is sharp reports this portion movement and improved with rest patient denies saddle anesthesia denies bladder incontinence Related Data Home Medications Medication Instructions Recorded Confirmed calcium carbonate 600 mg calcium 600 mg PO DAILY 11/01/22 10/11/23 (1,500 mg) tablet (Calcium) cholecalciferol (vitamin D3) 50 50 mcg PO DAILY 11/01/22 10/11/23 mcg (2,000 unit) capsule mecobalamin (vitamin B12) 1,000 1,000 mcg PO DAILY 11/01/22 10/11/23 mcg chewable tablet azelastine 137 mcg (0.1 %) nasal 1 spray intranasal Q12H 03/22/23 10/11/23 spray aerosol levothyroxine 50 mcg tablet 50 mcg PO DAILY 03/22/23 10/11/23 (Synthroid) diphenoxylate-atropine 2.5 1 tablet PO QID PRN 10/11/23 10/11/23 mg-0.025 mg tablet loperamide 2 mg capsule 2 mg PO Q6H PRN 10/11/23 10/11/23 risankizumab-rzaa 360 mg/2.4 mL 360 mg subcut .every 8 weeks 10/11/23 10/11/23 (150 mg/mL) subcut wearable injector (Skyrizi) Allergies Allergy/AdvReac Type Severity Reaction Status Date / Time celecoxib Allergy Intermediate swelling Verified 10/28/23 18:19 clindamycin Allergy Intermediate Rash Verified 10/28/23 18:19 latex Allergy Mild Rash Verified 10/28/23 18:19 Sulfa (Sulfonamide Allergy Mild Rash Verified 10/28/23 18:19 Antibiotics) fentanyl AdvReac Mild Nausea Verified 10/28/23 18:19 Review of Systems Review of Systems: A 10 system review of systems was completed on the patient and is negative except for what is stated in the HPI. Nursing and ancillary documentation was reviewed. [facility] Past Medical History Medical History Anxiety Bunion of great toe of left foot (~2004) Cholelithiasis 12/2003 Crohn disease Gastroesophageal reflux disease Hallux rigidus 2013 History of blood transfusion Hyperlipidemia Hypertension Hypothyroidism Surgical History Surgical History H/O abdominal surgery H/O toe surgery History of creation of ostomy 2023 History of hemorrhoidectomy 11/20/2022 - Exam under anesthesia, external hemorrhoidectomy involving left lateral and right anterior positions S/P arthroscopic partial medial meniscectomy S/P bunionectomy S/P cholecystectomy Family History Family History Father Diabetes mellitus Hypertension Family history of elevated blood lipids Acute myocardial infarction Cerebrovascular accident Family history of kidney disease Family history of coronary artery disease Grandparent Family history of malignant neoplasm of stomach Mother Family history of lupus erythematosus Social History Social History Years smoked: 15 Smoking status: Former smoker Tobacco type: cigarettes Smoking end date: 07/23/93 Alcohol intake: current Alcohol use details: VERY RARE Substance use: never Substance use type: does not use Living arrangements: with family Gender identity (if verbalized by the patient): Female Sexual Orientation (if Verbalized by the Patient): Straight or Heterosexual Spiritual care concerns: No Exam Narrative: GENERAL: Well-appearing, well-nourished, and in
[2023-10-28] MEDS: LIDOCAINE 5% PATCH 1 PATCH TRANSDERM (22:17)
[2023-10-28] MEDS: dexAMETHasone SOD PHOS INJ 10 MG/ML 1 ML VIAL IM (22:19)
[2023-10-28] MEDS: ORPHENADRINE CITRATE 100 MG TABLET.ER PO (22:19)
[2023-10-28] MEDS: HYDROmorphone HCL INJ (*CRX) 1 MG/ML SYR 0.5 MG IM (22:20)
== END 2023-10-28 23:42 | disposition home or self-care (01) ==
PROVIDERS: Emergency Provider Emergency Medicine; PCP Family Medicine
DX: M54.32 Sciatica, left side (principal); K50.90 Crohn's disease, unspecified, without complications; Z93.3 Colostomy status; I10 Essential (primary) hypertension; E78.5 Hyperlipidemia, unspecified; E03.9 Hypothyroidism, unspecified; K21.9 Gastro-esophageal reflux disease without esophagitis; Z87.891 Personal history of nicotine dependence; Z90.49 Acquired absence of other specified parts of digestive tract; Z79.01 Long term (current) use of anticoagulants
CPT/HCPCS: 96372; 99284; A9270; J1100; J1170

== ENCOUNTER 2023-11-01 14:37 | Outpatient (CLI) | payer MEDICARE, SELFPAY ==
--- NOTE | ~2023-11-01 | XR_ITS ---
XR hip BI 2V w AP pelvis 11/01/2023 15:12 Indication: Left-sided sciatica Procedure: AP pelvis and 2 views each hip Comparison: CT dated 03/21/2022. Findings: There is mild symmetric osteoarthritis of the hips. Pelvic rings are intact. There is lower lumbar spondylosis. Osteopenia. No fracture or traumatic malalignment. Sacral foramen are symmetric. Impression: 1: Mild bilateral symmetric osteoarthritis of the hips. 2: Lower lumbar spondylosis incompletely evaluated. Reviewed, dictated and finalized at location A. Impression: 1: Mild bilateral symmetric osteoarthritis of the hips. 2: Lower lumbar spondylosis incompletely evaluated.
--- NOTE | ~2023-11-01 | XR_ITS ---
XR lumbar spine min 4V 11/01/2023 15:12 Indication: Left-sided sciatica Procedure: 5 views lumbar spine Comparison: 04/16/2023 Findings: There is facet hypertrophy at L3-4, L4-5 and L5-S1. There is been progression of loss of di sc height at these levels. There is also mild loss of disc height at L2-3. There is grade 1 degenerat kasandra spondylolisthesis at L4-5. No acute fracture or traumatic malalignment. There is levoscoliosis. T here are cholecystectomy clips. Impression: 1: Progression of moderate lumbar spondylosis. Reviewed, dictated and finalized at location A. Impression: 1: Progression of moderate lumbar spondylosis.
== END 2023-11-01 14:38 ==
PROVIDERS: PCP Family Medicine; Visit Provider Family Medicine
DX: M54.32 Sciatica, left side (principal); M47.896 Other spondylosis, lumbar region; M16.0 Bilateral primary osteoarthritis of hip
CPT/HCPCS: 72110; 73521

== ENCOUNTER 2023-11-02 13:42 | Outpatient (CLI) | payer MEDICARE, SELFPAY ==
--- NOTE | ~2023-11-02 | US_ITS ---
EXAMINATION: US venous doppler E DATE: 11/02/2023 14:18 INDICATION: Left arm pain TECHNIQUE: Haines scale images with and without compression and Doppler images of the left upper extrem ity veins were obtained. COMPARISON: None. FINDINGS: The left internal jugular vein, subclavian vein, axillary vein, brachial veins, basilic vein, cephali c vein, radial vein, and ulnar vein are patent. IMPRESSION: 1. Patent left upper extremity veins. No evidence of deep venous thrombosis. Reviewed, dictated and finalized at location A.
== END 2023-11-02 13:43 | disposition home or self-care (01) ==
PROVIDERS: PCP Family Medicine; Visit Provider Family Medicine
DX: M79.651 Pain in right thigh (principal); I82.609 Acute embolism and thrombosis of unspecified veins of unspecified upper extremity
CPT/HCPCS: 93971

== ENCOUNTER 2023-11-07 13:26 | Outpatient (CLI) | payer MEDICARE, SELFPAY ==
--- NOTE | ~2023-11-07 | MR_ITS ---
EXAMINATION: MR hip RT wo con, MR hip LT wo con DATE: 11/07/2023 15:29 INDICATION: Bilateral hip pain. Crohn's disease with chronic steroid use. TECHNIQUE: 1. Magnetic resonance imaging (MRI) of the right hip was performed without intravenous contrast. Sequ ences included full-field axial PD-weighted FS FSE and T1-weighted FSE, coronal of the pelvis with PD -weighted FS FSE, T2-weighted FSE and T1-weighted FSE, small field of view of the right hip with axi al PD-weighted FS FSE, sagittal PD-weighted FS FSE, coronal PD-weighted FS FSE and coronal T2 weight ed FSE. Additional radial T1-weighted FGR oriented orthogonal to the acetabular rim were obtained for evaluation of the labrum. 2. MRI of the left hip was obtained without intravenous contrast. Sequences included small field of v iew of the right hip with axial PD-weighted FS FSE, sagittal PD-weighted FS FSE, coronal PD-weighted FS FSE and coronal T2 weighted FSE. Additional radial T1-weighted FGR oriented orthogonal to the ac etabular rim were obtained for evaluation of the labrum. COMPARISON: None FINDINGS: Bones/labrum/cartilage: Alignment is normal. There is marrow edema surrounding a nondisplaced sagittally oriented insufficien cy fracture at the left sacral ala. There is additional marrow edema at the superomedial aspect of th e right femoral head with flattening of the overlying articular cortex and subtle linear subarticular low signal intensity fracture line most consistent with insufficiency fracture. Although given the p rovided history of chronic steroid use the patient will be at increased risk of osteonecrosis, the ap pearance would be atypical. Mild mild to moderate osteoarthritis of the right hip with partial thickn ess cartilage loss involving greater than 50% the cartilage thickness and anterosuperiorly with under lying subarticular cystic change at the anterosuperior right acetabulum. There is diffuse degenerativ e tearing of the right acetabular labrum. There is mild to moderate osteoarthritis at the left hip wi th similar pattern of the anterosuperior predominant partial-thickness cartilage loss but without ass ociated subarticular cystlike changes. There are tiny marginal osteophytes along the posterior superi or rim of the left acetabulum which extend into the otherwise normal-appearing left acetabular labrum . Fluid: Small right hip joint effusion. Physiologic amount fluid in the left hip joint space. Soft tissues: Normal and symmetric muscle bulk and signal in the pelvis and visualized proximal thighs. The iliopso as, gluteal and proximal hamstring tendons are normal. Right lower quadrant diverting loop ileostomy. Limited evaluation of visceral organs of the pelvis is otherwise unremarkable. No pathologically en larged pelvic/inguinal lymphadenopathy. IMPRESSION: 1. Nondisplaced left sacral ala insufficiency fracture. 2. Likely additional subarticular insufficiency fracture with mild flattening of a small portion of t he anterior superomedial aspect the right femoral head. Differential would include less likely a very shallow region of osteonecrosis with collapse of the articular surface. 3. Moderate right and mild to moderate left hip osteoarthritis with diffuse tearing of the right acet abular labrum. Reviewed, dictated and finalized at location A. IMPRESSION: 1. Nondisplaced left sacral ala insufficiency fracture. 2. Likely additional subarticular insufficiency fracture with mild flattening o f a small portion of the anterior superomedial aspect the right femoral head. D ifferential would include less likely a very shallow region of osteonecrosis wi th collapse of the articular surface. 3. Moderate right and mild to moderate left hip osteoarthritis with diffuse tea ring of the right acetabular labrum.
--- NOTE | ~2023-11-07 | MR_ITS ---
EXAMINATION: MR lumbar spine wo con DATE: 11/07/2023 15:29 INDICATION: Low back pain. Bilateral hip pain. TECHNIQUE: Magnetic resonance imaging (MRI) of the lumbar spine was performed without intravenous con trast. Sequences included sagittal T2-weighted FSE, sagittal T2-weighted FS FSE, sagittal T1-weighted FSE, and axial T2-weighted FSE. COMPARISON: None FINDINGS: There is 3 degrees dextrocurvature of lumbar spine. There is 3 mm anterolisthesis of L4 on L5. Vertebral body heights are normal. There is mildly decreased disc height at L4-L5. The distal spi nal cord signal intensity is normal. The conus medullaris is at L1. The following disc levels are spe cifically discussed: L1-L2: The disc does not extend beyond the endplate margin. There is severe right and mild left facet joint osteoarthritis. There is no neural foraminal stenosis. There is no central canal stenosis. L2-L3: The disc is bulging. There is severe bilateral facet joint osteoarthritis. There is mild bilat eral neural foraminal stenosis. There is no central canal stenosis. L3-L4: The disc is bulging. There is severe bilateral facet joint osteoarthritis. There is mild later al neural foraminal stenosis. There is mild central canal stenosis. L4-L5: The disc does not extend beyond the endplate margin. There is severe bilateral facet joint ost eoarthritis. There is mild left neural foraminal stenosis. There is no central canal stenosis. L5-S1: The disc does not extend beyond the endplate margin. There is severe bilateral facet joint ost eoarthritis. There is mild bilateral neural foraminal stenosis. There is no central canal stenosis. IMPRESSION: 1. Mild lumbar spondylosis. Reviewed, dictated and finalized at location E. IMPRESSION: 1. Mild lumbar spondylosis.
== END 2023-11-07 13:27 ==
LOC: GOSHIMG 13:27
PROVIDERS: PCP Family Medicine; Visit Provider Family Medicine
DX: M16.0 Bilateral primary osteoarthritis of hip (principal); Z79.899 Other long term (current) drug therapy; M47.896 Other spondylosis, lumbar region
CPT/HCPCS: 72148; 73721

== ENCOUNTER 2023-12-19 14:21 | Outpatient (CLI) | payer MEDICARE, SELFPAY ==
[2023-12-19 15:55] LABS: Free T4 Free Thyroxine 1.15 ng/mL (0.78-2.19)
[2023-12-23 11:48] LABS: Vitamin D 1,25 (OH)2 Total 78 pg/mL (18-72); Vitamin D2 1,25 (OH)2 <8 pg/mL; Vitamin D3 1,25 (OH)2 78 pg/mL
[2023-12-27 16:54] LABS: Parathyroid Hormone Related Pr 10 pg/mL (11-20)
== END 2023-12-19 14:22 | disposition home or self-care (01) ==
PROVIDERS: PCP Family Medicine; Visit Provider Family Medicine
DX: S72.051A Unspecified fracture of head of right femur, initial encounter for closed fracture (principal); R63.4 Abnormal weight loss; I10 Essential (primary) hypertension; E87.6 Hypokalemia; E78.5 Hyperlipidemia, unspecified; E03.9 Hypothyroidism, unspecified; E55.9 Vitamin D deficiency, unspecified; Z79.899 Other long term (current) drug therapy
CPT/HCPCS: 36415; 82652; 83519; 83970; 84439; 84443

== ENCOUNTER 2024-02-28 11:19 | Outpatient (CLI) | payer MEDICARE, SELFPAY ==
--- NOTE | ~2024-02-28 | XR_ITS ---
Left foot Technique: AP, oblique, and lateral views were obtained. Clinical History: Pain Findings: No acute fracture or dislocation is seen. There is moderate degenerative change of the firs t MTP joint. Soft tissues are unremarkable. Impression: Moderate first joint degenerative change. Reviewed, dictated and finalized at location . Impression: Moderate first joint degenerative change.
[2024-02-28 12:01] LABS: Cholesterol 146 mg/dL (0-200); HDL Direct 31 mg/dL; Triglycerides 182 mg/dL (<150)
[2024-02-28 12:15] LABS: LDL Cholesterol Direct 73 mg/dL
== END 2024-02-28 11:20 | disposition home or self-care (01) ==
LOC: ANHLAB 11:26
PROVIDERS: PCP Family Medicine; Referring Provider Family Medicine; Visit Provider Internal Medicine Cardiovascular Disease
DX: E78.5 Hyperlipidemia, unspecified (principal); M19.072 Primary osteoarthritis, left ankle and foot
CPT/HCPCS: 36415; 73630; 80061

== ENCOUNTER 2024-04-24 15:13 | Outpatient (CLI) | payer MEDICARE, SELFPAY ==
--- NOTE | ~2024-04-24 | XR_ITS ---
XR chest 2V Ordering provider: Sosa Flowers DO History: 63 years Female with . cough for 4 days , picc line for crohns treatments . Comparison: February 20, 2023. FINDINGS: MEDIASTINUM: The cardiac silhouette is not enlarged. Right PICC line with the tip overlying superior vena cava. LUNGS: No infiltrates, effusions or pneumothorax. OTHER: No free air under the diaphragm. IMPRESSION: No acute cardiopulmonary pathology. Reviewed, dictated and finalized at location A.
== END 2024-04-24 15:14 | disposition home or self-care (01) ==
LOC: GOSHIMG 15:15
PROVIDERS: PCP Family Medicine; Visit Provider Family Medicine
DX: R05.9 Cough, unspecified (principal)
CPT/HCPCS: 71046

== ENCOUNTER 2024-09-04 16:03 | Outpatient (CLI) | payer MEDICARE, SELFPAY ==
--- NOTE | ~2024-09-04 | XR_ITS ---
HISTORY: M79.645 - Pain in left finger(s) COMPARISON: None TECHNIQUE: 3 views of the left hand were performed. FINDINGS: No acute fracture is identified. Gullwing deformity is identified within the proximal interphalangeal joint spaces of the second, thir d, fourth and fifth digits. Significant degenerative disease is identified at the first carpometacarpal joint space, with joint s pace narrowing, osteophyte formation, subchondral sclerosis and cyst formation. Scapholunate trapezial joint degeneration is also present resulting in an early zig zag deformity of the thumb. Significant joint space narrowing is also detected within the distal interphalangeal joint spaces of the digits 2 through 5. Periarticular osteopenia is also present. Mild radiocarpal joint space narrowing with sclerosis of the distal radius is present. Bone mineralization is age-appropriate. No significant soft tissue swelling. No radiopaque foreign body is identified. IMPRESSION: No acute fracture or dislocation within the left hand. Findings most consistent with osteoarthritis, as detailed above. Reviewed, dictated and finalized at location A. ING CASING AND DRYING SUPERVISOR
--- OUTSIDE RECORDS SUMMARY | 2024-09-04 16:11 | XMS_ITS | Encounter Summary ---
Author Organization [facility] [employer] [facility] Address [address] [place] [address] Phone Care Team Providers Care Bottom Turning Lathe Tender Name Role Phone Sosa Flowers DO Primary Care Provider [phone] Luis Miguel Medina MD Unavailable [phone] Beata Ambrosio MD Unavailable [phone] Star Griffiths MD Unavailable [phone] Kingsley Ovalles MD Unavailable [phone] Nory JacquesW Unavailable [phone] Andreia Kidd Unavailable Unavailable Lizeth Salazar MD Unavailable [phone] Sangeeta Cruz RN Unavailable [phone] Encounter Details Date Type Department Care Team (Late st Contact Info) Description 11/29/2022 Orders Only [facility] Scanning, Provider Social History Tobacco Use Types Packs/Day Years Used Date Smoking Tobacco: Former Smokeless Tobacco: Never Comments:Quit 1993 Alcohol Use Standard Drinks/Week Comments No 0 (1 standard drink = 0.6 oz pur e alcohol) OASIS D0700: Social Isolation Answer Da te Recorded Frequency of experiencing loneliness or isolatio n Never 09/20/2022 AUDIT-C Answer Date Recorded Q1: How often do you have a drink containing alc ohol? Never 05/18/2022 Average Number of Drinks Not on file 022 Frequency of Binge Drinking Not on file 04/23 Comments No Sex and Gender Information Value Date Recorded Sex Assigned at Not on file Legal Sex Female 12:20 AM BUTTON SEWING MACHINE OPERATOR Gender Identity Female 04/17/2021 10:27 AM CDT Sexual Orientation Straight 04/17/2021 10 :27 AM CDT documented as of this encounter Plan of Treatment Not on file documented as of this encounter Procedures Procedure Name Priority Date/Time Associated Diagnosis Comments SCAN - RADIOLOGY/IMAGING 11/29/2022 documented in this encounter Results * SCAN - RADIOLOGY/IMAGING (11/29/2022) Anatomical Region Laterality Modality Other us Provider Scanning Final Result documented in this encounter Visit Diagnoses Not on filedocumented in this encounter Additional Health Concerns Infection Onset Date Last Indicated Resolved Time Diarrhea 08/16/2023 08/18/2023 08/22/2023 9:17 AM BUTTON SEWING MACHINE OPERATOR Exposure, Contact Comment:Patient exposed to C. Auris patient on 09/27/2023. Please contact infection prevention for instructions on obtaining surveillance cultures. 09/28/2023 09/28/2023 10/26/2023 3:05 AM C DT C. difficile suspected 06/13/2024 06/17/202406/14 3:05 AM BUTTON SEWING MACHINE OPERATOR C. difficile suspected 06/17/2024 06/17/202406/17 6:54 PM BUTTON SEWING MACHINE OPERATOR documented as of this encounter Care Teams Bottom Turning Lathe Tender Relationship Specialty Start Date End Date Sosa Flowers DO PCP - General Family Medicine 01/12/20 Luis Miguel Medina MD [address] [facility] [id number] [place], [place] [id number] Surgeon Colon and Rectal Surgery 02/21/23 Beata Ambrosio MD [address] [place] [address] Referring Physician Gastroenterology 02/26/23 Star Griffiths MD 1 [facility] [place] [address] Consulting Physician Gastroenterology 02/27/23 Kingsley Ovalles MD 1 [facility] [place] [address] Consulting Physician Gastroenterology 02/27/23 Nory Jacques LCSW [address] [facility] ([facility] Mailstop [phone] [place] [address] SHOP Outpatient Drain Technician 06/01/23 07/01/23 Andreia Kidd RMA Surgical Prehabilitation and Readiness (SPAR) Coordinator 07/09/23 08/20/23 Lizeth Salazar MD Consulting Physician Infectious Diseases 07/12/23 Sangeeta Cruz, RN [address] [facility] [address] [place] [address] SHOP Outpatient Drain Technician 10/01/23 10/28/23 documented as of this encounter
--- OUTSIDE RECORDS SUMMARY | 2024-09-04 16:11 | XMS_ITS | Encounter Summary ---
Author Organization [facility] [employer] [facility] Address [address] [place] [address] Phone Care Team Providers Care Drywall Application Supervisor Name Role Phone Sosa Flowers DO Primary Care Provider [phone] Luis Miguel Medina MD Unavailable [phone] Beata Ambrosio MD Unavailable [phone] Star Griffiths MD Unavailable [phone] Kingsley Ovalles MD Unavailable Nory JacquesW Unavailable [phone] Andreia Kidd Unavailable Unavailable Lizeth Salazar MD Unavailable [phone] Sangeeta Cruz RN Unavailable [phone] Encounter Details Date Type Department Care Team (Late st Contact Info) Description 08/08/2022 Orders Only [facility] Scanning, Provider Social History Tobacco Use Types Packs/Day Years Used Date Smoking Tobacco: Former Smokeless Tobacco: Never Comments:Quit 1993 Alcohol Use Standard Drinks/Week Comments No 0 (1 standard drink = 0.6 oz pur e alcohol) AUDIT-C Answer Date Recorded Q1: How often do you have a drink containing alc ohol? Never 05/18/2022 Average Number of Drinks Not on file 022 Frequency of Binge Drinking Not on file 04/23 Comments No Sex and Gender Information Value Date Recorded Sex Assigned at Not on file Legal Sex Female 12:20 AM MORTGAGE COORDINATOR Gender Identity Female 04/17/2021 10:27 AM CDT Sexual Orientation Straight 04/17/2021 10 :27 AM CDT documented as of this encounter Plan of Treatment Not on file documented as of this encounter Procedures Procedure Name Priority Date/Time Associated Diagnosis Comments SCAN - LABS 08/08/2022 documented in this encounter Results * SCAN - LABS (08/08/2022) us Provider Scanning Final Result documented in this encounter Visit Diagnoses Not on filedocumented in this encounter Additional Health Concerns Infection Onset Date Last Indicated Resolved Time Diarrhea 08/16/2023 08/18/2023 08/22/2023 9:17 AM MORTGAGE COORDINATOR Exposure, Contact Comment:Patient exposed to C. Auris patient on 09/27/2023. Please contact infection prevention for instructions on obtaining surveillance cultures. 09/28/2023 09/28/2023 10/26/2023 3:05 AM C DT C. difficile suspected 06/13/2024 06/17/202406/14 3:05 AM MORTGAGE COORDINATOR C. difficile suspected 06/17/2024 06/17/202406/17 6:54 PM MORTGAGE COORDINATOR documented as of this encounter Care Teams Drywall Application Supervisor Relationship Specialty Start Date End Date Kendrickbarrysissy Sosa JannetteDO PCP - General Family Medicine 01/12/20 Luis Miguel Medina MD [address] [facility] [place] [place] [id number] [place] [address] Surgeon Colon and Rectal Surgery 02/21/23 Beata Ambrosio MD [address] [place] [address] Referring Physician Gastroenterology 02/26/23 Star Griffiths MD 1 [facility] [place] [address] Consulting Physician Gastroenterology 02/27/23 Kingsley Ovalles MD [facility] [place] [address] Consulting Physician Gastroenterology 02/27/23 Nory Jacques, BUY BOAT OPERATOR [address] [facility] ([facility]) Mailstop [phone] [place] [address] SHOP Outpatient Pediatric Allergist 06/01/23 07/01/23 Andreia Kidd RMA Surgical Prehabilitation and Readiness (SPAR) Coordinator 07/09/23 08/20/23 Lizeth Salazar MD Consulting Physician Infectious Diseases 07/12/23 Sangeeta Cruz, RN [address] [facility] [address] [place] [address] SHOP Outpatient Pediatric Allergist 10/01/23 10/28/23 documented as of this encounter
--- OUTSIDE RECORDS SUMMARY | 2024-09-04 16:11 | XMS_ITS | Encounter Summary ---
Author Organization [facility] Address [address] [place] [address] Phone Care Team Providers Care Power Brake Operator Name Role Phone Sosa Flowers DO Primary Care Provider [phone] Luis Miguel Medina MD Unavailable [phone] Beata Ambrosio MD Unavailable [phone] Star Griffiths MD Unavailable [phone] Kingsley Ovalles MD Unavailable [phone] Nory JacquesW Unavailable [phone] Andreia Kidd Unavailable Unavailable Lizeth Salazar MD Unavailable [phone] Sangeeta Cruz RN Unavailable [phone] Encounter Details Date Type Department Care Team (Late st Contact Info) Description 11/16/2022 Orders Only [facility] Scanning, Provider [...] on file Legal Sex Female 12:20 AM MIRROR FABRICATION SUPERVISOR Gender Identity Female 04/17/2021 10:27 AM CDT Sexual Orientation Straight 04/17/2021 10 :27 AM CDT documented as of this encounter Plan of Treatment Not on file documented as of this encounter Procedures Procedure Name Priority Date/Time Associated Diagnosis Comments SCAN - LABS 11/16/2022 documented in this encounter Results * SCAN - LABS (11/16/2022) us Provider Scanning Final Result documented in this encounter Visit Diagnoses Not on filedocumented in this encounter Additional Health Concerns Infection Onset Date Last Indicated Resolved Time Diarrhea 08/16/2023 08/18/2023 08/22/2023 9:17 AM MIRROR FABRICATION SUPERVISOR Exposure, Contact Comment:Patient exposed to C. Auris patient on 09/27/2023. Please contact infection prevention for instructions on obtaining surveillance cultures. 09/28/2023 09/28/2023 10/26/2023 3:05 AM C DT C. difficile suspected 06/13/2024 06/17/202406/14 3:05 AM MIRROR FABRICATION SUPERVISOR C. difficile suspected 06/17/2024 06/17/202406/17 6:54 PM MIRROR FABRICATION SUPERVISOR documented as of this encounter Care Teams Power Brake Operator Relationship Specialty Start Date End Date Sosa Flowers DO PCP - General Family Medicine 01/12/20 Luis Miguel Medina MD [address] [facility] [phone] [place], [place] [id number] Surgeon Colon and Rectal Surgery 02/21/23 Beata Ambrosio MD [address] [place] [address] Referring Physician Gastroenterology 02/26/23 Star Griffiths MD 1 [facility] [place] [address] Consulting Physician Gastroenterology 02/27/23 Kingsley Ovalles MD 1 [facility] [place] [address] Consulting Physician Gastroenterology 02/27/23 Nory Jacques, [facility] [address] [facility] ([facility] Mailstop [phone] [place] [address] SHOP Outpatient Windmill Technician 06/01/23 07/01/23 Andreia Kidd RMA Surgical Prehabilitation and Readiness (SPAR) Coordinator 07/09/23 08/20/23 Lizeth Salazar MD Consulting Physician Infectious Diseases 07/12/23 Sangeeta Cruz, RN [address] [facility] [address] [place], [place] [address] SHOP Outpatient Windmill Technician 10/01/23 10/28/23 documented as of this encounter
--- OUTSIDE RECORDS SUMMARY | 2024-09-04 16:11 | XMS_ITS | Encounter Summary ---
Author Organization [facility] [facility] Address [address] [place] [address] Phone Care Team Providers Care Speech And Language Assistant Name Role Phone Alfred De Souza MD Primary Care Provider [phone] Sosa Flowers DO Primary Care Provider + [phone] Luis Miguel Medina MD Unavailable [phone] Beata Ambrosio MD Unavailable [phone] Star Griffiths MD Unavailable [phone] Kingsley Ovalles MD Unavailable Nory Jacques LCSW Unavailable [phone] Andreia Kidd Unavailable Unavailable Lizeth Salazar MD Unavailable [phone] Sangeeta Cruz RN Unavailable [phone] Encounter Details Date Type Department Care Team (Late st Contact Info) Description 05/22/2019 Orders Only [facility] Scanning, Provider Social History Tobacco Use Types Packs/Day Years Used Date Smoking Tobacco: Former Smokeless Tobacco: Never Comments:Quit 1993 Alcohol Use Standard Drinks/Week Comments No 0 (1 standard drink = 0.6 oz pur e alcohol) Comments No Sex and Gender Information Value Date Recorded Sex Assigned at Not on file Legal Sex Female 12:20 AM JUNIOR PROJECT MANAGER Gender Identity Female 04/17/2021 10:27 AM CDT Sexual Orientation Straight 04/17/2021 10 :27 AM CDT documented as of this encounter Plan of Treatment Not on file documented as of this encounter Procedures Procedure Name Priority Date/Time Associated Diagnosis Comments SCAN - RADIOLOGY/IMAGING 05/22/2019 documented in this encounter Results * SCAN - RADIOLOGY/IMAGING (05/22/2019) Anatomical Region Laterality Modality Other us Provider Scanning Final Result documented in this encounter Visit Diagnoses Not on filedocumented in this encounter Additional Health Concerns Infection Onset Date Last Indicated Resolved Time Diarrhea 08/16/2023 08/18/2023 08/22/2023 9:17 AM JUNIOR PROJECT MANAGER Exposure, Contact Comment:Patient exposed to C. Auris patient on 09/27/2023. Please contact infection prevention for instructions on obtaining surveillance cultures. 09/28/2023 09/28/2023 10/26/2023 3:05 AM C DT C. difficile suspected 06/13/2024 06/17/202406/14 3:05 AM JUNIOR PROJECT MANAGER C. difficile suspected 06/17/2024 06/17/202406/17 6:54 PM JUNIOR PROJECT MANAGER documented as of this encounter Care Teams Speech And Language Assistant Relationship Specialty Start Date End Date Alfred De Souza MD [address] [place] [address] PCP - General 03/03/15 01/11/20 Sosa Flowers DO [address] [place] [place] [address] PCP - General Family Medicine 01/12/20 Luis Miguel Medina MD [address] [facility] [phone] Surgeon Colon and Rectal Surgery 02/21/23 Beata Ambrosio MD [address] [address] Referring Physician Gastroenterology 02/26/23 Star Griffiths MD 1 [facility] GASTROENTEROLOGY [address] Consulting Physician Gastroenterology 02/27/23 Kingsley Ovalles MD 1 [facility] GASTROENTEROLOGY [address] Consulting Physician Gastroenterology 02/27/23 Nory Jacques LCSW [address] [facility] ([facility] Mailstop [phone] [place] [address] SHOP Outpatient House Worker General 06/01/23 07/01/23 Andreia Kidd RMA Surgical Prehabilitation and Readiness (SPAR) Coordinator 07/09/23 08/20/23 Lizeth Salazar MD Consulting Physician Infectious Diseases 07/12/23 Sangeeta Cruz, RN [address] [facility] [address] [address] SHOP Outpatient House Worker General 10/01/23 10/28/23 documented as of this encounter
--- OUTSIDE RECORDS SUMMARY | 2024-09-04 16:11 | XMS_ITS | Encounter Summary ---
Author Organization [facility] Healthcare Address [address] [place] [address] Care Team Providers Care Security Rover Name Role Phone Sosa Flowers DO Primary Care Provider [phone] Luis Miguel Medina MD Unavailable [phone] Beata Ambrosio MD Unavailable [phone] Star Griffiths MD Unavailable [phone] Kingsley Ovalles MD Unavailable [phone] Andreia Kidd Unavailable Unavailable Lizeth Salazar MD Unavailable [phone] Sangeeta Cruz RN Unavailable [phone] Encounter Details Date Type Department Care Team (Late st Contact Info) Description 08/09/2023 Treatment [facility] PATHOLOGY [address] [address] Kyaw Arroyo MD [address] [facility] [phone] [place] [address] Social History Tobacco Use Types Packs/Day Years Used Date Smoking Tobacco: Former Cigarettes 0.5 15 1 979 - 1993 Passive Smoke Exposure: Past Smokeless Tobacco: Never Comments:Quit 1993 Alcohol Use Standard Drinks/Week Comments No 0 (1 standard drink = 0.6 oz pur e alcohol) OASIS D0700: Social Isolation Answer Da te Recorded Frequency of experiencing loneliness or isolatio n Never 06/28/2023 Social Connection and Isolat ion Panel [NHANES] Answer Date Recorded In a typical week, how many times do you talk on the phone with family, friends, or neighbors? More than three times a week 06/01/2023 How often do you get togethe r with friends or relatives? More than three times a week 06/01/2023 How often do you attend chur ch or christian services? Never 06/01/2023 Do you belong to any clubs o r organizations such as restorationism groups, unions, fraternal or athletic groups, or school groups? No 06/01/2023 How often do you attend meet ings of the clubs or organizations you belong to? Never 06/01/2023 Are you , , di vorced, , never , or living with a partner? 06/01/2023 AUDIT-C Answer Date Recorded Q1: How often do you have a drink containing alcohol? Never 08/08/2023 Q2: How many drinks containi ng alcohol do you have on a typical day when you are drinking? Patient does not drink Q3: How often do you have si x or more drinks on one occasion? Never 08/08/2023 Overall Financial Resource Strain (CARDIA) Answe r Date Recorded How hard is it for you to pa y for the very basics like food, housing, medical care, and heating? Not very hard 06/01/2023 Hunger Vital Sign Answer Date Recorded Within the past 12 months, y ou worried that your food would run out before you got the money to buy more. Never true 06/01/20 23 Within the past 12 months, t he food you bought just didn't last and you didn't have money to get more. Never true 06/01/2023 PRAPARE - Transportation Answer Date Re corded In the past 12 months, has l ack of transportation kept you from medical appointments or from getting medications? No 05/23 In the past 12 months, has l ack of transportation kept you from meetings, work, or from getting things needed for daily living? No 06/01/2023 Housing Stability Vital Sign Answer Moe e Recorded In the last 12 months, was t here a time when you were not able to pay the mortgage or rent on time? No 06/01/2023 In the last 12 months, how many places have you lived? 1 06/01/2023 In the last 12 months, was t here a time when you did not have a steady place to sleep or slept in a snf (including now)? No 06/01/2023 Personal Safety Answer Date Recorded Getting School Help Needed Denies 07/02 Comments No Sex and Gender Information Value Date Recorded Sex Assigned at Not on file Legal Sex Female 12:20 AM GAS WELDER Gender Identity Female 04/17/2021 10:27 AM CDT Sexual Orientation Straight 04/17/2021 10 :27 AM CDT documented as of this encounter Progress Notes * Kyaw Arroyo MD - 08/09/2023 2:57 PM CST Transfusion Medicine Blood Bank Note Patient Information: ABO/Rh: B positive Antibody screen: Positive Previous antibodies: Present/known: anti-c and anti-K Antibodies identified: anti-K Additional testing performed: Red blood cell phenotype: K antigen negative Relevant Patient History: Muriel Wade is a 63 y.o. woman with a past medical history of Crohn's disease complicated by distal ileal multifocal strictures. She is being evaluated for a laparoscopic ileocolic resection.There is a remote history of transfusion. Testing Information: The antibody screen was positive. Antibody identification demonstrated antibodies against the K antigen in the patient???s plasma. Additional testing was performed. Phenotyping showed that the patient's red blood cells are K antigen negative. Historical antibodies generally considered to be clinically significant include anti-c and anti-K. All other common, clinically significant antibodies have been ruled out. Clinical Relevance: Anti-c and anti-K antibodies have been implicated in hemolytic transfusion reactions with extravascular hemolysis.Therefore, anti-c and anti-K antibodies are generally considered to be clinically significant. Presence of these antibodies requires that additional testing be performed and this may result in additional time for blood product selection when ordered for transfusion. Therapeutic Relevance: ABO/Rh and crossmatch compatible red blood cell units negative for the c and K antigen will be provided for future transfusions. Approximately 18% ABO/Rh compatible units from the donor population are expected to be compatible. Approximately 5-6 units will need to be screened to find one compatibleunit for this patient. Contact Information: Please contact the [facility] Transfusion Medicine Service at (option 1) with any questions. This report has been prepared by: Kyaw Arroyo MD Attestation: I have personally reviewed the antibody result and agree with the interpretation contained in this written blood bank report. Tiffanie Wilkinson MD PhD WELDER WELDER documented in this encounter Plan of Treatment Not on file documented as of this encounter Visit Diagnoses Not on filedocumented in this encounter Additional Health Concerns Infection Onset Date Last Indicated Resolved Time Diarrhea 08/16/2023 08/18/2023 08/22/2023 9:17 AM GAS WELDER Exposure, Contact Comment:Patient exposed to C. Auris patient on 09/27/2023. Please contact infection prevention for instructions on obtaining surveillance cultures. 09/28/2023 09/28/2023 10/26/2023 3:05 AM C DT C. difficile suspected 06/13/2024 06/17/202406/14 3:05 AM GAS WELDER C. difficile suspected 06/17/2024 06/17/202406/17 6:54 PM GAS WELDER documented as of this encounter Care Teams Security Rover Relationship Specialty Start Date End Date Sosa Flowers DO PCP - General Family Medicine 01/12/20 Luis Miguel Medina MD [address] [facility] [phone] [place] [address] Surgeon Colon and Rectal Surgery 02/21/23 Beata Ambrosio MD [address] [place] [address] Referring Physician Gastroenterology 02/26/23 Star Griffiths MD 1 [facility] [place] [address] Consulting Physician Gastroenterology 02/27/23 Kingsley Ovalles MD 1 [facility] [place] [address] Consulting Physician Gastroenterology 02/27/23 Andreia Kidd RMA Surgical Prehabilitation and Readiness (SPAR) Coordinator 07/09/23 08/20/23 Lizeth Salazar MD Consulting Physician Infectious Diseases 07/12/23 Sangeeta Cruz, RN [address] [facility] [address] [place] [address] SHOP Outpatient Group Exercise Instructor 10/01/23 10/28/23 documented as of this encounter
--- OUTSIDE RECORDS SUMMARY | 2024-09-04 16:12 | XMS_ITS | Encounter Summary ---
Author Organization [facility] Healthcare Address [address] [place] [address] Care Team Providers Care Pharmaceutical Sales Specialist Name Role Phone Kristie Sosa Bhatia DO Primary Care Provider [phone] Luis Miguel Medina MD Unavailable [phone] Beata Ambrosio MD Unavailable [phone] Star Griffiths MD Unavailable [phone] Kingsley Ovalles MD Unavailable Nory Jacques LCSW Unavailable [phone] Andreia Kidd Unavailable Unavailable Lizeth Salazar MD Unavailable [phone] Sangeeta Cruz RN Unavailable [phone] Encounter Details Date Type Department Care Team (Late st Contact Info) Description 05/03/2020 Documentation Gastroententerology Yuliana Rain BS Social History Tobacco Use Types Packs/Day Years Used Date Smoking Tobacco: Former Smokeless Tobacco: Never Comments:Quit 1993 Alcohol Use Standard Drinks/Week Comments No 0 (1 standard drink = 0.6 oz pur e alcohol) Comments No Sex and Gender Information Value Date Recorded Sex Assigned at Not on file Legal Sex Female 12:20 AM HAZARDOUS MATERIALS ANALYST Gender Identity Female 04/17/2021 10:27 AM CDT Sexual Orientation Straight 04/17/2021 10 :27 AM CDT documented as of this encounter Plan of Treatment Not on file documented as of this encounter Visit Diagnoses Not on filedocumented in this encounter Additional Health Concerns Infection Onset Date Last Indicated Resolved Time Diarrhea 08/16/2023 08/18/2023 08/22/2023 9:17 AM HAZARDOUS MATERIALS ANALYST Exposure, Contact Comment:Patient exposed to C. Auris patient on 09/27/2023. Please contact infection prevention for instructions on obtaining surveillance cultures. 09/28/2023 09/28/2023 10/26/2023 3:05 AM C DT C. difficile suspected 06/13/2024 06/17/202406/14 3:05 AM HAZARDOUS MATERIALS ANALYST C. difficile suspected 06/17/2024 06/17/202406/17 6:54 PM HAZARDOUS MATERIALS ANALYST documented as of this encounter Care Teams Pharmaceutical Sales Specialist Relationship Specialty Start Date End Date Sosa Flowers DO PCP - General Family Medicine 01/12/20 Luis Miguel Medina MD [address] [facility] [phone] [place] [address] Surgeon Colon and Rectal Surgery 02/21/23 Beata Ambrosio MD [address] [place] [address] Referring Physician Gastroenterology 02/26/23 Star Griffiths MD 1 [facility] [place] [address] Consulting Physician Gastroenterology 02/27/23 Kingsley Ovalles MD 1 [facility] [place] [address] Consulting Physician Gastroenterology 02/27/23 Nory Jacques, [facility] [address] [facility] ([facility] Mailstop [phone] [place] [address] J CARLOS Outpatient Order Tracer 06/01/23 07/01/23 Andreia Kidd RMA Surgical Prehabilitation and Readiness (SPAR) Coordinator 07/09/23 08/20/23 Lizeth Salazar MD Consulting Physician Infectious Diseases 07/12/23 Sangeeta Cruz, RN [address] [facility] [address] [place] [address] J CARLOS Outpatient Order Tracer 10/01/23 10/28/23 documented as of this encounter
--- OUTSIDE RECORDS SUMMARY | 2024-09-04 16:12 | XMS_ITS | Clinical Summary ---
Author Organization [facility] Address [address] [place] [address] Care Team Providers Care Brass Chaser Name Role Phone Sosa Flowers DO Primary Care Provider [phone] Luis Miguel Medina MD Unavailable Beata Ambrosio MD Unavailable Star Griffiths MD Unavailable Kingsley Ovalles MD Unavailable [phone] Lizeth Salazar MD Unavailable Allergies Active Allergy Reactions Criticality Noted Date Comments Celecoxib Swelling Medium 01/28/2019 Clindamycin Rash Medium 10/21/2021 Fentanyl Nausea And Vomiting Low 10/18/2022 Latex Rash Medium 08/20/2018 Sulfa (Sulfonamide Antibiotics) Rash Medium 07/24 Medications levothyroxine (SYNTHROID) 50 mcg tabletIndications :hypothyroidism Take 1 tablet (50 mcg total) by mouth patent law specialist before breakfast Active cyanocobalamin, vitamin B-12, 1,000 mcg capsuleIndication s:Prevention of Vitamin B12 Deficiency Take 1 tablet by mouth daily after breakfast qd Active omeprazole (PriLOSEC) 20 mg capsuleIndication s:Treatment of Non-Bleeding Gastric Disorder Take 1 capsule (20 mg total) by mouth 2 (two) times a day 022 Active acetaminophen (TYLENOL) 325 mg tabletIndications :Pain Take 2 tablets (650 mg total) by mouth every 4 (four) hours as needed for pain or fever 30 tablet Active TPN AT DISCHARGE Infuse into a venous catheter continuously See AVS for most recent TPN formula. 1 Package Active 0.9 % sodium chloride (sodium chloride 0.9%) 0.9 % bolus Infuse 500 mL into a venous catheter daily Active 0.9 % sodium chloride ([facility] sodium chloride 0.9%) injectionIndicati ons:Flushing Infuse 10 mL into a venous catheter 3 (three) times a day as needed for line care Active heparin sod,porcine/0.9 % NaCl (HEPARIN FLUSH IV)Indications:Fl ushing Infuse 5 mL into a venous catheter 3 (three) times a day as needed (line care). Indications: temporary redness of face and neck Active MULTIVITAMIN ORALIndications:S upplement Take 1 tablet by mouth every morning Active psyllium, aspartame, SF (METAMUCIL SF) 3.4 gram packet Take 1 packet by mouth 2 (two) times a day 180 packet Active Additional Information Patient not taking.Reported on 08/28/2024 cholestyramine (QUESTRAN) 4 gram packetIndications :stomach Take 1 packet by mouth 2 (two) times a day as needed (stomach) Active Additional Information Patient not taking.Informant: Self, Reported on 08/28/2024 azelastine (ASTELIN) 137 mcg (0.1 %) nasal sprayIndications: Seasonal Allergic Rhinitis Administer 2 sprays into each nostril daily Use one to two sprays in each nostril twice a day. Active heparin sod,porcine/0.9 % NaCl (HEPARIN FLUSH IV)Indications:PI CC LINE CARE Infuse 5 mL into a venous catheter as needed (PICC LINE CARE). Indications: PICC LINE CARE Active loperamide (IMODIUM) 2 mg capsule Take 2 capsules (4 mg total) by mouth 4 (four) times a day (with meals and nightly) 240 capsule 1 Active Additional Information Patient taking differently:4 mg oral 4 times daily (with meals and nightly),Indications: high output ileostomy, Informant: Self, Reported on 01/01/2024 diphenoxylate-atr opine (LOMOTIL) 2.5-0.025 mg per tabletIndications :diarrhea,high ostomy output Take 1-2 tabs 30 minutes before meals and bedtime. Not to exceed 8 tabs daily 240 tablet Active ondansetron ODT (ZOFRAN-ODT) 8 mg disintegrating tablet Take 1 tablet (8 mg total) by mouth every 8 (eight) hours as needed for nausea or vomiting 24 tablet Active triamcinolone (KENALOG) 0.1 % creamIndications: skin rash Apply 1 g topically 2 (two) times a day as needed for irritation or rash Active nystatin ointment Apply topically 2 (two) times a day 30 g 024 2024 Active risankizumab-rzaa (Skyrizi) 360 mg/2.4 mL (150 mg/mL) wearable injector Inject 360 mg under the skin every 8 (eight) weeks 2.4 mL 1 Active apixaban (ELIQUIS) 5 mg tabletIndications :Venous Thrombosis Take 5 mg by mouth 2 (two) times a day. Indications: blood clot formation in vein Active teduglutide (Gattex 30-Vial) 5 mg kit Inject 2.5 mg under the skin daily 15 each 2024 Active al & mag hydroxide with simethicone-diphe nhydramine-lidoca ine (MAGIC MOUTHWASH) suspension 1-1-1 Swish and swallow 10 mL every 4 (four) hours as needed (sores) 1800 mL Active acyclovir (ZOVIRAX) 5 % ointment as needed Active valACYclovir (VALTREX) 1 gram tablet as needed Active sucralfate (CARAFATE) 1 gram tablet Take 1 tablet (1 g total) by mouth 3 (three) times a day before meals TAKE 1 HOUR BEFORE MEALS 270 tablet 1 Active upadacitinib (Rinvoq) 30 mg tablet extended release 24 hrIndications:Engine Turner hn's Disease Take 1 tablet (30 mg total) by mouth daily 30 tablet 2 025 Active dicyclomine (BENTYL) 10 mg capsule TAKE 1 CAPSULE BY MOUTH 4 TIMES A DAY NEEDED FOR STOMACH PAIN- TAKE WITH MEALS & AT BEDTIME 360 capsule 1 025 Active atorvastatin (LIPITOR) 10 mg tablet Take 1 tablet (10 mg total) by mouth daily 2022 Discontinued (No longer clinically indicated) Active Problems Problem Noted Date Diagnosed Date Acute deep vein thrombosis (DVT) of right upper extremity 11/28/2023 Assessment & Plan (11/28/2023 10:48 AM CDT): Impression: Patient has a left upper extremity PICC line for IV fluids and TPN after undergoing small-bowel resection with ileostomy for Crohn's disease in July 2023. Patient is scheduled for reversal in December. Patient is currently on Eliquis. Most recent upper extremity duplex reveals no DVT to left upper extremity. Plan: Recommend ongoing anticoagulation for approximately 6 months from onset DVT. - Continue recommendations as per general surgeon. - Follow up as needed. 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 LUE duplex with acute DVT in the subclavian, axillary, and 1 of 2 proximal brachial veins. No personal history of DVT, though has had prior superficial vein thrombus in 04/2023. PICC is functioning, without signs of infection, and some form of line is still necessary for TPN. Discussed with CRS, who recommended medical management of PICC line as per standard of care. Curbsided IR, who recommended that given functioning PICC line without signs of infection, agreed can treat through with anticoagulation with repeat doppler ultrasound in 2 weeks to monitor DVT. - Eliquis 10mg BID x 7d (09/27-10/03) then 5mg BID (10/04-) - Keep PICC in place unless new signs of infection or malfunction - Repeat LUE DVT ultrasound in 2 weeks from discharge Hypothyroidism, unspecified 09/27/2023 Assessment & Plan (09/27/2023 2:47 AM PINION POLISHER): - continue home synthroid Ileostomy in place ([facility]) 09/22/2023 Assessment & Plan (09/28/2023 12:48 PM PINION POLISHER): - RD c/s for TPN - continue home imdoium, loperamide for high ostomy output. Stopped tincture of opium preivously due to ineffective and high cost. - also received 1L IVF daily at home for high ostomy output Platelets decreased 09/22/2023 Crohn's disease of colon with complication 08/21 Abdominal pain 08/16/2023 Complication associated with peripherally inserted central catheter (PICC), initial encounter 08/07/2023 Assessment & Plan (08/07/2023 8:00 PM PINION POLISHER): Patient is followed by home health nurse, have 2 ports PICC line, 1 for nocturnal TPN and the other ports for IV fluid daily. Apparently TPN ports his all was difficult to remove after attachment, today HH RN had multiple attempts to remove the tubing when the plastic part of the extension tubing that goes into the lumen of the PICC line broke off and remained attached into the ports of PICC. Admitted for IV access management. -access team consult called by ED Comorbid condition 08/07/2023 Assessment & Plan (08/07/2023 8:04 PM PINION POLISHER): Crohn's disease: Was taken off steroids recently, stable disease, does not endorse significant symptom burden. GERD: Resume home BPI Hypothyroidism: Resume home levothyroxine NAFLD: Alk-phos 192, AST 52, around baseline, patient use cholestyramine p.r.n.. Crohn's disease ([facility]) 07/11/2023 Assessment & Plan (09/27/2023 2:46 AM PINION POLISHER): Ileal CD Dx 2019. Previously on entyvio and stelera. Then on Remicade with continued weight loss and inflammation. Then started on Rinvoq 04/02/23. Admitted to the hospital 04/2023 for initiation of TPN. Visit complicated by leukopenia and diarrhea. Rinvoq stopped and was found to be CMV positive. Now s/p ICR with diverting ileostomy 08/21/23. GI now planning to start skyrizi. - continue prednisone taper (started 30mg daily for 7 days on 09/25 -> 25mg daily x 7d, -> 20mg daily x 7d -> 15mg daily x 7d -> 10mg daily x 7d -> 5mg daily x 7d) - continue nutritional supplements Rash and nonspecific skin eruption 05/25/2023 Assessment & Plan (05/29/2023 9:53 AM PINION POLISHER): No systemic manifestations, mucosal involvement, or worsening laboratory studies to suggest life-threatening process. Timing following start of ganciclovir suggests this as cause. Unfortunately, if ganciclovir indeed causative is likely to persist unless drug stopped, and alternative antiviral therapies appear inferior due to toxicities, cost, and/or potential development of resistance. Continue supportive cares as suggested by Dermatology. Assessment & Plan (05/28/2023 2:42 PM PINION POLISHER): No systemic manifestations, mucosal involvement, or worsening laboratory studies to suggest life-threatening process. Timing following start of ganciclovir suggests this as cause. Unfortunately, if ganciclovir indeed causative is likely to persist unless drug stopped, and alternative antiviral therapies appear inferior due to toxicities, cost, and/or potential development of resistance. Continue supportive cares as suggested by Dermatology. Assessment & Plan (05/27/2023 11:59 AM PINION POLISHER): No systemic manifestations, mucosal involvement, or worsening laboratory studies to suggest life-threatening process. Timing following start of ganciclovir suggests this as cause. Unfortunately, if ganciclovir indeed causative is likely to persist unless drug stopped, and alternative antiviral therapies appear inferior due to toxicities, cost, and/or potential development of resistance. Continue supportive cares. Assessment & Plan (05/26/2023 9:45 AM CDT): No systemic manifestations, mucosal involvement, or worsening laboratory studies to suggest life-threatening process. Timing following start of ganciclovir suggests this as cause. Unfortunately, if ganciclovir indeed causative is likely to persist unless drug stopped, and alternative antiviral therapies appear inferior due to toxicities, cost, and/or potential development of resistance. Dermatology's recommendations yesterday are appreciated (and not unexpected). Assessment & Plan (05/25/2023 11:39 AM CDT): No systemic manifestations, mucosal involvement, or worsening laboratory studies to suggest life-threatening process. Timing following start of ganciclovir suggests this as cause. Unfortunately, if ganciclovir indeed causative is likely to persist unless drug stopped, and alternative antiviral therapies appear inferior due to toxicities, cost, and/or potential development of resistance. Will have Dermatology see per ID's preference to guide management, though continuation of ganciclovir with supportive therapies to ameliorate symptoms would appear to be optimal route at this time. Cytomegalovirus (CMV) viremia (CMS/HCC) 05/24/20 23 Assessment & Plan (09/27/2023 2:46 AM PINION POLISHER): No longer on treatment for this given CMV PCR detectable but not quantifiable during last admission per ID and GI discussion. Assessment & Plan (05/31/2023 9:26 AM PINION POLISHER): Diarrhea and cytopenia in context of Crohn disease with recent pharmacologic immunosuppression strongly suggestive of CMV enteritis. CMV DNA +, 5k international units/ml. Febrile to 102F. ID following. HIV neg, liver enzymes normal. Pt started on IV ganciclovir, with improvement in symptoms, fever, viral load and cytopenia. Plan to continue IV ganciclovir for now (as opposed to oral Valcyte) given unclear absorption with active Crohn disease. See #rash. -Viral load: 5k -> 1k -> 200 -IV ganciclovir started 05/17, will continue after d/c until ID appointment at least, with weekly CMP, CBC, CMV Viral load -home health scheduled starting 05/31 afternoon -outpatient ID follow up scheduled Assessment & Plan (05/28/2023 2:41 PM PINION POLISHER): Diarrhea and cytopenia in context of Crohn disease with recent pharmacologic immunosuppression strongly suggestive of CMV enteritis. Viral DNA PCR diminished following start of ganciclovir; unclear if repeat check will be needed prior to release from hospital. Plan to continue ganciclovir at discharge. See below. Assessment & Plan (05/27/2023 11:58 AM PINION POLISHER): Diarrhea and cytopenia in context of Crohn disease with recent pharmacologic immunosuppression strongly suggestive of CMV enteritis. Viral DNA PCR diminished following start of ganciclovir. Plan to continue at discharge. See below. Assessment & Plan (05/26/2023 9:42 AM CDT): Diarrhea and cytopenia in context of Crohn disease with recent pharmacologic immunosuppression strongly suggestive of CMV enteritis. Viral DNA PCR diminished following start of ganciclovir. Plan to continue at discharge. See below. Assessment & Plan (05/25/2023 11:34 AM CDT): Diarrhea and cytopenia in context of Crohn disease with recent pharmacologic immunosuppression strongly suggestive of CMV enteritis. Viral DNA PCR diminished following start of ganciclovir. Plan to continue at discharge. See below. Assessment & Plan (05/25/2023 12:53 PM CDT): 63 y.o. female with PMH including Crohn's (dx 2019) c/b distal ileal multifocal strictures s/p ballon dilatation, prior vedolizumab then ustekinumab then infliximab then upadacitinib 04/02/2023 who presented for TPN initiation 2/2 progressive weight loss 05/10. Also noted to have soaking night sweats, multiple episodes of diarrhea and postprandial bloating. She spiked a fever the day of admission, defervesced then had recurrent fevers 05/14. Subsequent CT was done that showed long-segment mucosal hyperenhancement, wall thickening, mural stratification of terminal ileum, persistent multifocal strictures of the small bowel. Bcx, HIV, cdiff, [employer] RVP all negative. CMV PCR + 05/16--5730. Unlear if persistent GI symptoms are related to CMV v Crohn's. Rash stable on ganciclovir, no eos, no LFT elevation. Floaters not due to CMV per optho. Ongoing itching, not better than when last seen. Unresolved with benadryl, likely not absorbing. Primary team to start sarna. Recommendations: -Derm consult for symptomatic management of pruritus, possibly 2/2 ganciclovir, but unable to switch to alternate regimen and discharge anticipating soon. -Monitor for worsening pain/erythema to PICC insertion site. -Continue on ganciclovir 2.5mg/kg IV q24h (if crcl >/= 50, adjust to 2.5mg/kg IV q12h) -CBC with diff, BMP twice weekly. -ID will continue to follow. Superficial thrombosis of left lower extremity 1 Assessment & Plan (05/30/2023 12:01 PM PINION POLISHER): On exam, pt with noticeable pitting edema of LLE. Doppler of left lower extremity on admit showed superficial vein thrombus. Superficial veins involved include the left great saphenous vein at mid and distal calf, area of pain. Repeat Doppler on 05/29 showed no DVT. -pt denies hx of DVT and PE -krishna yap Assessment & Plan (05/28/2023 2:43 PM PINION POLISHER): Doppler of left lower extremity showed superficial vein thrombus. Superficial veins involved include the left great saphenous vein at mid and distal calf, area of pain. Given increasing edema of limb and active inflammation would exclude extension into deep system prior to release from hospital; awaiting repeat venous duplex (ordered several days ago). Assessment & Plan (05/27/2023 12:00 PM PINION POLISHER): Doppler of left lower extremity showed superficial vein thrombus. Superficial veins involved include the left great saphenous vein at mid and distal calf, area of pain. Given increasing edema of limb and active inflammation would exclude extension into deep system prior to release from hospital; awaiting repeat venous duplex. Assessment & Plan (05/26/2023 9:46 AM CDT): Doppler of left lower extremity showed superficial vein thrombus. Superficial veins involved include the left great saphenous vein at mid and distal calf, area of pain. Given increasing edema of limb and active inflammation would exclude extension into deep system prior to release from hospital. Assessment & Plan (05/25/2023 11:39 AM CDT): Doppler of left lower extremity showed superficial vein thrombus. Superficial veins involved include the left great saphenous vein at mid and distal calf, area of pain. Application of heat should suffice for now. May consider repeating duplex in near future to exclude propagation to deep system, though risk diminished with clinical improvement observed thus far. Assessment & Plan (05/24/2023 3:00 PM CDT): Doppler of left lower extremity showed superficial vein thrombus. Superficial veins involved include the left great saphenous vein at mid and distal calf, area of pain. Application of heat should suffice. May consider repeating duplex next week to exclude propagation to deep system, though risk diminished with clinical improvement observed thus far. Assessment & Plan (05/23/2023 10:04 AM CDT): Doppler of left lower extremity showed superficial vein thrombus. Superficial veins involved include the left great saphenous vein at mid and distal calf, area of pain. Application of heat should suffice. Would consider repeating duplex next week to exclude propagation to deep system. Assessment & Plan (05/22/2023 8:32 PM CDT): Doppler of left lower extremity showed Superficial vein thrombus. Superficial veins involved include the left great saphenous vein at mid and distal calf, area of pain. Application of heat should suffice. Would consider repeating duplex to exclude propagation to deep system. Pancytopenia 05/17/2023 Assessment & Plan (05/31/2023 9:27 AM PINION POLISHER): Of unclear cause; partially resolved. Platelet count improved, now WNL; WBC improving. (Rinvoq had been suspected earlier as causative, though thrombocytopenia not listed in Micromedex among adverse effects of Rinvoq.) May also have been CMV-mediated. Assessment & Plan (05/28/2023 2:42 PM PINION POLISHER): Of unclear cause; partially resolved. Platelet count improved; WBC fluctuating, though improvement likewise suggested. (Interestingly, Rinvoq had been suspected earlier as causative, though thrombocytopenia not listed in Micromedex among adverse effects of Rinvoq.) ?CMV-mediated? Assessment & Plan (05/27/2023 11:59 AM PINION POLISHER): Of unclear cause. Platelet count improved; WBC fluctuating. (Interestingly, Rinvoq had been suspected earlier as causative, though thrombocytopenia not listed in Micromedex among adverse effects of Rinvoq.) ?CMV-mediated? Assessment & Plan (05/26/2023 9:44 AM CDT): Of unclear cause. Platelet count and now WBC improved. (Interestingly, Rinvoq had been suspected earlier as causative, though thrombocytopenia not listed in Micromedex among adverse effects of Rinvoq.) ?CMV-mediated? Assessment & Plan (05/25/2023 11:40 AM CDT): Of unclear cause. Platelet count improved. (Interestingly, Rinvoq had been suspected as causative, though thrombocytopenia not listed in Micromedex among adverse effects of Rinvoq.) Assessment & Plan (05/24/2023 2:59 PM CDT): Of unclear cause, though see below. Platelet count continues to improve. (Interestingly, thrombocytopenia not listed in Micromedex among adverse effects of Rinvoq.) Assessment & Plan (05/23/2023 10:03 AM CDT): Of unclear cause, though see below. Platelet count improving. Assessment & Plan (05/22/2023 8:34 PM CDT): Of unclear cause, though see below. Platelet count improved. Severe malnutrition (CMS/HCC) 02/25/2023 Assessment & Plan (09/27/2023 2:47 AM PINION POLISHER): On TPN and ileostomy diet with eventual goal to wean off of TPN. - RD c/s Assessment & Plan (05/30/2023 12:03 PM PINION POLISHER): Nutrition following for TPN; appreciate recs thus far. Plan to continue at discharge to optimize prior to planned bowel resection. -per nutrition, pt should continue PO calcium, vit D, and B12 supplementation after d/c Assessment & Plan (05/28/2023 2:42 PM PINION POLISHER): Nutrition following for TPN; appreciate recs thus far. Plan to continue at discharge to optimize prior to planned bowel resection. Assessment & Plan (05/27/2023 11:59 AM PINION POLISHER): Nutrition following for TPN; appreciate recs thus far. Plan to continue at discharge to optimize prior to planned bowel resection. Assessment & Plan (05/26/2023 9:45 AM CDT): Nutrition following for TPN, appreciate recs. Plan to continue at discharge to optimize prior to planned bowel resection. Assessment & Plan (05/25/2023 11:39 AM CDT): Nutrition following for TPN, appreciate recs. Plan to continue at discharge to optimize prior to planned bowel resection. Assessment & Plan (05/24/2023 2:59 PM CDT): Nutrition following for TPN, appreciate recs. Plan to continue at discharge to optimize prior to planned bowel resection. Assessment & Plan (05/23/2023 10:03 AM CDT): Nutrition following for TPN, appreciate recs. Plan to continue at discharge to optimize prior to planned bowel resection. Assessment & Plan (05/22/2023 8:31 PM CDT): Nutrition following for TPN, appreciate recs. Plan to continue at discharge to optimize prior to planned bowel resection. Small bowel stricture 10/26/2022 Overview (10/26/2022): Added automatically from request for surgery [id number] Chronic parotitis 10/13/2021 NAFLD (nonalcoholic fatty liver disease) 021 Essential hypertension 10/18/2020 Dyslipidemia 10/18/2020 Osteopenia of necks of both femurs 01/17/2020 Iron deficiency anemia due to chronic blood loss 08/28/2019 High risk medications (not anticoagulants) long- term use 03/19/2019 Crohn's disease of small and large intestines with complication (CMS/HCC) 02/03/2019 Overview (06/10/2023): Year of diagnosis: 2018. Year symptoms began: 2015. Phenotype: Inflammatory (B1) without perianal disease. Distribution: ileal (L1) without upper GI disease (L4). Extraintestinal manifestations: none. Complications: hx PSBO., CMV infection Prior treatments: PDN, Entyvio, Stelara 2020, stopped due to worsened chronic sinusitis with it, Inflectra 02/2021-03/2023 (continued inflammation and symptoms despite therapy), Rinvoq (started 04/02/23, stopped during hospital admission in April in the setting of leukopenia and found to have CMV infection) Current treatment: none plan to start skyrizi Prior surgeries: none. Endoscopies: SBE 01/2023 Multifocal terminal ileal strictures consistent with Crohn's ileitis. Dilated to a maximum of 15 mm with a TTS balloon. Biopsied. - Ulcerated small bowel upstream to extent reached concerning for Crohn's ulceration with or without associated stricture. - A Delphine Is, 6 mm polyp in the cecum, removed with a cold snare. Resected and retrieved. - Limited examination of the colon with enteroscopy. However the examined areas were normal. PATH: Small intestine, stricture, endoscopic biopsy - Granulation tissue, consistent with ulcer base - No intact small intestine mucosa for evaluation - No evidence of malignancy B. Large intestine, cecum, endoscopic biopsy - Tubular adenoma - No high-grade dysplasia or malignancy Colonoscopy 04/2022 Simple Endoscopic Score for Crohn's Disease: 3, mucosal inflammatory changes. Biopsied. - The distal rectum and anal verge are normal on retroflexion view. PATH: Specimen labeled Random stomach , biopsy - Colonic mucosa, no diagnostic abnormalities are identified - No dysplasia or granulomas identified B. Specimen labeled Random colon , biopsy - Gastric antral and oxyntic mucosa with mild inactive chronic gastritis - Negative for intestinal metaplasia or dysplasia - No Helicobacter pylori like organisms identified on immunostain EGD 04/2022 Normal esophagus. - Erythematous mucosa in the stomach. Biopsied. - Normal examined duodenum. Colonoscopy 08/2018 .Diverticulosis in the sigmoid colon. - The examination was otherwise normal on direct and retroflexion views. - Biopsies were taken with a cold forceps from the ascending colon, transverse colon, sigmoid colon and rectum for evaluation of microscopic colitis. PATH: Large intestine, biopsy - Colonic mucosa with no pathologic abnormality - No active or chronic inflammatory disease is seen EGD 08/2018 Normal esophagus. - Normal stomach. Biopsies were taken with a cold forceps for Helicobacter pylori testing from the antrum, body, and incisura. - Normal duodenum. Biopsies for histology were taken with a cold forceps for evaluation of celiac disease from the bulb and second portion. PATH: A. Small intestine, duodenum, biopsy: - Duodenal mucosa within normal limits including preserved villous architecture and no significant intraepithelial lymphocytosis B. Stomach, biopsy: - Gastric antral and fundic gland mucosa with mild active chronic nonspecific gastritis - H. pylori immunohistochemistry will be reported separately Imaging: CT 05/21/23 No substantial change in diffuse enteritis involving nearly the entirety of the small bowel , but worst distally in the ileum, with multifocal areas of luminal narrowing compatible with strictures with focal areas of upstream dilatation. No perforation. Findings most compatible with acute on chronic Crohn's disease although a superimposed infectious enteritis could appear similarly. MRE 01/2023 Mild to moderate active inflammation involving multiple short segments of distal ileum, similar to prior examination. There are findings of stricturing disease with upstream dilation. No evidence of abscess or penetrating disease. MRE 06/2022 Mild to moderate active inflammation involving multiple short segments of distal ileum, similar in severity but improved in proximal extent compared to the prior exam. No evidence of stricture, penetrating disease, or abscess. MRE 08/2021 Multiple segments of active inflammation, new or increased in extent, involving the [id number] ileum. There is minimal narrowing with possible inflammatory stricturing, but without upstream bowel obstruction. MRE 02/2021 Multiple short segments of mild active inflammation involving the mid to distal ileum which appears overall improvement in extent and minimally improved in severity. MRE 04/2020 New site of active bowel inflammation within a loop of ileum in the pelvis as described above. Second site of active bowel inflammation involving a previously affected short segment of terminal ileum. No MR evidence of penetrating disease or intra-abdominal abscess. MRE 06/2019 Improved small bowel wall thickening in the distal ileum compared to prior MRE 01/24/2019. No active or new site of bowel inflammation. 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 Overall feels better with Infliximab than Stelara, with less frequency of flares, however her MRE this month shows active inflammation, and her IFX level was only 8.2 in 06/2021, 2 weeks prior to her dose. She also endorses on-going issues with chronic sinusitis, and a worsening rash on her MCPs bilaterally, not resolving with topical steroids. Assessment & Plan (11/28/2023 10:45 AM CDT): Impression: Patient has a history of Crohn's disease recently underwent small- bowel resection with temporary ileostomy. Patient is scheduled for reversal in December. Plan: Continue recommendations as per general surgery. Assessment & Plan (05/29/2023 12:56 PM PINION POLISHER): - On Rinvoq at home, currently being held. 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 - avoid aggressive antidiarrheal management due to underlying stricturing disease - Continue TPN for nutritional optimization for eventual resection per CRS. Assessment & Plan (05/28/2023 2:40 PM PINION POLISHER): - On Rinvoq at home, currently being held. 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 - avoid aggressive antidiarrheal management due to underlying stricturing disease Continue TPN for nutritional optimization for eventual resection per CRS. Assessment & Plan (05/27/2023 11:58 AM PINION POLISHER): - On Rinvoq at home, currently being held. 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 - avoid aggressive antidiarrheal management due to underlying stricturing disease Continue TPN for nutritional optimization for eventual resection per CRS. Assessment & Plan (05/26/2023 9:42 AM CDT): - On Rinvoq at home, currently being held. 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 - avoid aggressive antidiarrheal management due to underlying stricturing disease Continue TPN for nutritional optimization for eventual resection per CRS. Assessment & Plan (05/25/2023 11:32 AM CDT): - On Rinvoq at home, currently being held. 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 - avoid aggressive antidiarrheal management due to underlying stricturing disease -TPN for nutritional optimization for eventual resection per CRS. Assessment & Plan (05/24/2023 2:56 PM CDT): - On Rinvoq at home, currently being held, can restart after her repeat labs 1 week post discharge shows decreasing viral load with improvement in cytopenias. - avoid aggressive antidiarrheal management due to underlying stricturing disease -TPN for nutritional optimization for eventual resection per CRS, not during this admission -Appreciate nutrition recs for TPN -Appreciate GI recs Assessment & Plan (05/23/2023 10:00 AM CDT): - On Rinvoq at home, currently being held, can restart after her repeat labs 1 week post discharge shows decreasing viral load with improvement in cytopenias. - avoid aggressive antidiarrheal management due to underlying stricturing disease -TPN for nutritional optimization for eventual resection per CRS, not during this admission -Appreciate nutrition recs for TPN -Appreciate GI recs Assessment & Plan (05/18/2023 12:47 PM CDT): - On Rinvoq at home, currently being held, can restart after her repeat labs 1 week post discharge shows decreasing viral load with improvement and cytopenia. - avoid aggressive antidiarrheal management due to underlying stricturing disease -TPN for nutritional optimization for eventual resection per CRS, not during this admission -Appreciate nutrition recs for TPN -Appreciate GI recs Assessment & Plan (09/13/2021 2:45 PM PINION POLISHER): - Will maximize IFX therapy by increasing it to 10 mg/kg q4 weeks - Will assess treatment response with colonoscopy/MRE in 4-6 months - Refer to Dermatology for rash - Refer to ENT for chronic sinusitis Gastroesophageal reflux disease without esophagi tis 08/20/2018 Assessment & Plan (09/27/2023 2:48 AM PINION POLISHER): - continue home PPI Resolved Problems Problem Noted Date Diagnosed Date Resolved Date Severe malnutrition (CMS/HCC) 06/10/2023 06/10/2023 Hyponatremia 05/17/2023 08/02/2023 Assessment & Plan (05/29/2023 12:57 PM PINION POLISHER): Remains mild. Likely due to hypovolemia engendered by diarrhea from active Crohn disease plus/minus CMV enteritis. No additional management warranted. Assessment & Plan (05/28/2023 2:41 PM PINION POLISHER): Remains mild. Likely due to hypovolemia engendered by diarrhea from active Crohn disease plus/minus CMV enteritis. No additional management warranted. Assessment & Plan (05/27/2023 11:58 AM PINION POLISHER): Remains mild. Likely due to hypovolemia engendered by diarrhea from active Crohn disease plus/minus CMV enteritis. No additional management warranted. Assessment & Plan (05/26/2023 9:42 AM CDT): Mild. Likely due to hypovolemia engendered by diarrhea from active Crohn disease plus/minus CMV enteritis. No additional management warranted. Assessment & Plan (05/25/2023 11:42 AM CDT): Mild. Likely due to hypovolemia engendered by diarrhea from active Crohn disease plus/minus CMV enteritis. No additional management warranted. Assessment & Plan (05/24/2023 2:57 PM CDT): Mild. Likely due to hypovolemia engendered by diarrhea from active Crohn disease plus/minus CMV enteritis. CTM. Assessment & Plan (05/23/2023 10:01 AM CDT): Mild. Likely hypovolemia engendered by diarrhea from active Crohns disease plus/minus CMV enteritis. CTM. Assessment & Plan (05/22/2023 8:35 PM CDT): Mild. Likely hypovolemia iso 10 episodes of diarrhea per day from active Crohns disease. CTM. Other cytomegaloviral diseases 05/17/2023 05/29/2023 Assessment & Plan (05/29/2023 12:58 PM PINION POLISHER): CMV DNA +, 5k international units/ml, patient with colitis although unclear if CMV related. Febrile to 102F in recent past, though has been afebrile lately. ID following. HIV neg, liver enzymes normal. Could explain concurrent cytopenias (which, interestingly enough, have improved somewhat). Plan to continue IV ganciclovir for now (as opposed to oral Valcyte) given unclear absorption with active Crohn disease. See #rash. -retesting CMV viral load 05/29 -IV ganciclovir for 3 weeks total, will continue after d/c -home health scheduled starting 05/31 afternoon -outpatient ID follow up scheduled Assessment & Plan (05/28/2023 2:41 PM PINION POLISHER): CMV DNA +, 5k international units/ml, patient with colitis although unclear if CMV related. Febrile to 102F in recent past, though appears improved. -IV ganciclovir -ID consult -appreciate recommendations -HIV 1/2 antibody with P 24 antigen negative -liver enzymes normal Could explain concurrent cytopenias (which, interestingly enough, have improved somewhat). Plan to continue IV ganciclovir for now (as opposed to oral Valcyte) given unclear absorption with active Crohn disease. See below re: rash. Assessment & Plan (05/27/2023 11:58 AM PINION POLISHER): CMV DNA +, 5k international units/ml, patient with colitis although unclear if CMV related. Febrile to 102F in recent past, though appears improved. -IV ganciclovir -ID consult -appreciate recommendations -HIV 1/2 antibody with P 24 antigen negative -liver enzymes normal Could explain concurrent cytopenias (which, interestingly enough, are improving). Plan to continue IV ganciclovir for now (as opposed to oral Valcyte) given unclear absorption with active Crohn disease. See below re: rash. Assessment & Plan (05/26/2023 9:43 AM CDT): CMV DNA +, 5k international units/ml, patient with colitis although unclear if CMV related. Febrile to 102F in recent past, though appears improved. -IV ganciclovir -ID consult -appreciate recommendations -HIV 1/2 antibody with P 24 antigen negative -liver enzymes normal Could explain concurrent cytopenias (which, interestingly enough, are improving). Plan to continue IV ganciclovir for now (as opposed to oral Valcyte) given unclear absorption with active Crohn disease. See below re: rash. Assessment & Plan (05/25/2023 11:41 AM CDT): CMV DNA +, 5k international units/ml, patient with colitis although unclear if CMV related. Febrile to 102F in recent past, though appears improved. -IV ganciclovir -ID consult -appreciate recommendations -HIV 1/2 antibody with P 24 antigen negative -liver enzymes normal Could explain concurrent cytopenias. Plan to continue IV ganciclovir for now (as opposed to oral Valcyte) given unclear absorption with active Crohn disease. See below re: rash. Assessment & Plan (05/24/2023 2:57 PM CDT): CMV DNA +, 5k international units/ml, patient with colitis although unclear if CMV related. Febrile to 102F. -IV ganciclovir -ID consult -appreciate recommendations -HIV 1/2 antibody with P 24 antigen negative -liver enzymes normal Could explain concurrent pancytopenia. Plan to continue ganciclovir for now given unclear absorption with active Crohn disease. Will continue to monitor rash closely (suspect induced by ganciclovir, though does not appear to be particularly deleterious; timing not consistent with DRESS). Assessment & Plan (05/23/2023 10:06 AM CDT): CMV DNA +, 5k international units/ml, patient with colitis although unclear if CMV related. Febrile to 102F. -IV ganciclovir -ID consult -appreciate recommendations -HIV 1/2 antibody with P 24 antigen negative -liver enzymes normal Could explain concurrent pancytopenia. Plan to continue ganciclovir for now given unclear absorption with active Crohn disease. Will continue to monitor rash closely (suspect induced by ganciclovir, though does not appear to be particularly deleterious). Assessment & Plan (05/22/2023 8:33 PM CDT): CMV DNA +, 5k international units/ml, patient with colitis although unclear if CMV related. Febrile to 102F. -IV ganciclovir -ID consult -appreciate recommendations -HIV 1/2 antibody with P 24 antigen negative -liver enzymes normal Could explain concurrent pancytopenia. Localized swelling of left foot 05/17/2023 05/22/2023 Assessment & Plan (05/19/2023 2:58 PM CDT): Tender and swollen foot. Patient also has wound over her 5th toe, nonpurulent without erythema. Patient states that it developed after hitting her toe while sleeping. Wound care consulted We will get x-ray of left lower extremity to rule out stress fracture Elevated liver enzymes 12/14/202204/22 Crohn's disease with complication 01/11/2022 02/25/2023 Overview (01/11/2022): Added automatically from request for surgery [id number] Overweight (BMI 25.0-29.9) 10/18/2020 0 02/25/2023 Nausea and vomiting 08/21/2018 08/02/19 24 Overview (08/21/2018): Added automatically from request for surgery [id number] Diarrhea 04/23/2018 04/22/2023 Encounters Date Type Department Care Team Description 09/01/2024 2:06 PM PINION POLISHER - 09/01/2024 11:59 PM PINION POLISHER Hospital Encounter [facility] [place] [address] Discharge Disposition: Discharge to home or self care 09/01/2024 11:00 AM PINION POLISHER Home Care Visit [facility] [address] [address] [place] [address] Zackery Pickens, RN SN HOME VISIT 09/01/2024 Documentation [facility] Gastroenterology [address] [facility] 12th [place] [address] [place] [address] Isela Bray RN Treatment Plan Update (08/28/2024 rov) 08/28/2024 1:30 PM PINION POLISHER Office Visit [facility] Gastroenterology [facility] 12th [place] [address] [place] [address] Lianne Hicks NP High risk medications (not anticoagulants) long-term use (Primary Dx); Severe malnutrition (CMS/HCC) (HCC); Crohn's disease of small and large intestines with complication (CMS/HCC) (HCC); Ileostomy in place (CMS/HCC) (HCC) 08/27/2024 Telephone [facility] Gastroenterology [address] [place] [address] [address]th [place] [address] [place] [address] Isela Bray RN Med Management ([employer] appeal) 08/26/2024 4:00 PM PINION POLISHER - 08/26/2024 11:59 PM PINION POLISHER Hospital Encounter [address] [address] Discharge Disposition: Discharge to home or self care 08/26/2024 8:15 AM PINION POLISHER Home Care Visit [address] [address] Zackery Pickens RN SN HOME VISIT 08/19/2024 2:30 PM PINION POLISHER - 08/19/2024 11:59 PM PINION POLISHER Hospital Encounter [facility] [address] [place] [address] Discharge Disposition: Discharge to home or self care 08/19/2024 12:30 PM PINION POLISHER Home Care Visit [place] [address] [address] [place] [address] Zackery Pickens RN SN HOME VISIT 08/11/2024 3:29 PM PINION POLISHER - 08/11/2024 11:59 PM PINION POLISHER Hospital Encounter [facility] [address] [place] [address] Discharge Disposition: Discharge to home or self care 08/11/2024 8:15 AM PINION POLISHER Home Care Visit [place] [address] [address] [place] [address] Zackery Pickens, RN SN HOME VISIT 08/11/2024 Documentation [facility] Services [address] [place] [address] Ghada Urbina, HERMANN 08/06/2024 Telephone [facility] Gastroenterology [facility] [address]th [place] [address] [place] [phone] Rocio Costa Prior Auth ([employer]) 08/04/2024 3:37 PM PINION POLISHER - 08/04/2024 11:59 PM PINION POLISHER Hospital Encounter [facility] [address] [place] [address] Discharge Disposition: Discharge to home or self care 08/04/2024 10:45 AM PINION POLISHER Home Care Visit [place] [address] [address] [place] [address] Zackery Pickens, RN SN HOME VISIT 07/29/2024 6:05 PM PINION POLISHER - 07/29/2024 11:59 PM PINION POLISHER Hospital Encounter [facility] [address] [place] [address] Discharge Disposition: Discharge to home or self care 07/29/2024 1:00 PM PINION POLISHER Home Care Visit [place] [address] [address] [place] [address] Zackery Pickens, RN SN HOME VISIT 07/24/2024 Telephone [facility] Gastroenterology [address] [place] [address] [address]th [place] [address] [place] [phone] Isela Bray RN Prior Auth (rinvoq) 07/21/2024 1:44 PM PINION POLISHER - 07/21/2024 11:59 PM PINION POLISHER Hospital Encounter [facility] [address] [place] [address] Discharge Disposition: Discharge to home or self care 07/21/2024 9:30 AM PINION POLISHER Home Care Visit [address] [place] [address] Zackery Pickens, RN SN HOME VISIT 07/14/2024 3:28 PM PINION POLISHER - 07/14/2024 11:59 PM PINION POLISHER Hospital Encounter [facility] [address] [place] [address] Discharge Disposition: Discharge to home or self care 07/14/2024 10:30 AM PINION POLISHER Home Care Visit [address] [place] [address] Zackery Pickens, JOSÉ SN HOME VISIT 07/08/2024 2:12 PM PINION POLISHER - 07/08/2024 11:59 PM PINION POLISHER Hospital Encounter [facility] [address] [place] [address] Discharge Disposition: Discharge to home or self care 07/08/2024 2:00 PM PINION POLISHER Home Care Visit [address] [place] [address] Zackery Pickens RN SN NON OASIS RECERTIFICATION 07/08/2024 Plan of Care Documentation [address] [place] [address] 07/08/2024 Documentation [facility] Home Care Services [address] [place] [address] Ghada Urbina, HERMANN 07/01/2024 Telephone [facility] Surgery [address] [place] [address] Medical Office Building [address] [place] [phone] Ghada Arita, JOSÉ 06/30/2024 2:31 PM PINION POLISHER - 06/30/2024 11:59 PM PINION POLISHER Hospital Encounter [facility] [address] [place] [address] Discharge Disposition: Discharge to home or self care 06/30/2024 10:45 AM PINION POLISHER Home Care Visit [address] [place] [address] Zackery Pickens RN SN HOME VISIT 06/30/2024 Telephone [facility] Infectious Diseases [address] [facility] [address] [place] [address] Destiny Medina BS 06/27/2024 1:30 PM PINION POLISHER Infusion [facility] [address] [facility] [address] [place] [phone] Iron deficiency anemia due to chronic blood loss (Primary Dx) 06/26/2024 Orders Only [facility] Surgery [address] [place] [address] Medical Office Building [address] [place] [address] Luis Miguel Medina MD On total parenteral nutrition (TPN) (Primary Dx); Crohn's disease of small and large intestines with complication (HCC) 06/23/2024 3:21 PM PINION POLISHER - 06/23/2024 11:59 PM PINION POLISHER Hospital Encounter [facility] [address] [place] [address] Discharge Disposition: Discharge to home or self care 06/23/2024 9:30 AM PINION POLISHER Home Care Visit [address] [place] [address] Zackery Pickens, RN SN HOME VISIT 06/18/2024 Orders Only [facility] [address] [place] [address] [place] [phone] Heidi Ascencio RN 06/17/2024 3:52 PM PINION POLISHER - 06/17/2024 11:59 PM PINION POLISHER Hospital Encounter [facility] [address] [place], [place] [phone] Change in bowel habits; Diarrhea, unspecified type; Crohn's disease of small and large intestines with complication (CMS/HCC) (HCC) Discharge Disposition: Discharge to home or self care 06/17/2024 2:20 PM PINION POLISHER Lab [facility] [address] [place] [address] Abdominal pain 06/17/2024 12:24 PM PINION POLISHER - 06/17/2024 11:59 PM PINION POLISHER Hospital Encounter [facility] [address] [place] [address] Discharge Disposition: Discharge to home or self care 06/17/2024 11:00 AM PINION POLISHER Office Visit [facility] Gastroenterology [facility] [address]th [place] [address] [place] [address] Beata Ambrosio MD Abdominal pain (Primary Dx); High risk medications (not anticoagulants) long-term use; Crohn's disease of colon with complication (HCC); Ileostomy in place (CMS/HCC) (HCC); Small bowel stricture (HCC); Cytomegalovirus (CMV) viremia (CMS/HCC) (HCC) 06/17/2024 Documentation [facility] Gastroenterology [address] [place] [address] [address] [place] [address] [place] [phone] Isela Bray RN Treatment Plan Update (06/17/2024 rov) 06/16/2024 4:27 PM PINION POLISHER - 06/16/2024 11:59 PM PINION POLISHER Hospital Encounter [facility] [address] [place] [address] Discharge Disposition: Discharge to home or self care 06/16/2024 9:30 AM PINION POLISHER Home Care Visit [place] [address] [address] [place] [address] Zackery Pickens RN SN HOME VISIT 06/16/2024 9:15 AM PINION POLISHER Telemedicine [facility] Surgery [facility] Floor [address] [place] [phone] Luis Miguel Medina MD Ileostomy in place (CMS/HCC) (HCC) (Primary Dx); On total parenteral nutrition (TPN); Crohn's disease of small and large intestines with complication (HCC) 06/13/2024 10:30 AM PINION POLISHER Infusion [facility] [address] [place] [phone] Iron deficiency anemia due to chronic blood loss (Primary Dx) 06/12/2024 Telephone [facility] Gastroenterology [address] [facility] 12th [place] [address] [place] [phone] Genevieve Connelly crohn's flare-up 06/09/2024 3:20 PM PINION POLISHER - 06/09/2024 11:59 PM PINION POLISHER Hospital Encounter [facility] [address] [place] [address] Discharge Disposition: Discharge to home or self care 06/09/2024 9:30 AM PINION POLISHER Home Care Visit [facility] [address] [place] [address] Zackery Pickens, RN SN HOME VISIT 06/09/2024 Documentation [facility] Home Care Services [address] [place] [address] Ghada Urbina, HERMANN 06/06/2024 1:00 PM [employer]INION [employer]ER Infusion [facility] [address] [place] [address] [phone] Iron deficiency anemia due to chronic blood loss (Primary Dx) 06/04/2024 Telephone [facility] [address] [place] [phone] Yue Villagran, JOSÉ 06/04/2024 Orders Only [facility] [address] [place] [address] [phone] Yue Villagran, JOSÉ from Last 3 Months Immunizations Name Administration Dates Next Due Influenza, Quadrivalent, Hig h Dose, Preservative Free, Intrr 05/13/2023 Influenza, Quadrivalent, Rec ombinant, Egg Free, Preservative Free, Intramuscular 05/01/2019 Influenza, Quadrivalent, Spl it, Preservative Free, Intramuscular 05/21/2018 Influenza, Trivalent, High D ose, Split, Preservative Free, Intramuscular 06/17/2024 Pneumococcal Conjugate PCV 13 01/01/2019 ZOSTER Recombinant 02/12/2019 Surgical History Surgery Date Site/Laterality Comments CHOLECYSTECTOMY CATARACT EXTRACTION TONSILLECTOMY MENISCUS SURGERY BUNIONECTOMY COLONOSCOPY FOOT SURGERY Bilateral COLECTOMY 07/23/2023 - 08/22/2023 Laparoscopic ileocolic resection with primary ileocolic anastomosis and diverting loop ileostomy. IR PICC LINE PLACEMENT > 5 YEARS 01/28/2024 N/A Medical History Medical History Date Comments GERD (gastroesophageal reflux disease) Vomiting Colitis Diarrhea Chronic diarrhea IBS (irritable bowel syndrome) Allergic rhinitis Autoimmune disease (CMS/HCC) (HCC) Hyperlipemia Hypertension Acid reflux Crohn's disease (CMS/HCC) (HCC) 2019 Hypothyroidism Anemia Arthritis Cataract History of transfusion Chronic bundle branch block Family History Medical History Relation Name Comments Hypertension Father Samuel Stroke Father Samuel Lupus Mother Colon cancer Paternal Grandfather Stroke Sister Cara Anesthesia problems Neg Hx Relation Name Status Comments Father Samuel Mother Paternal Grandfather Sister Cara Social History Tobacco Use Types Packs/Day Years Used Date Smoking Tobacco: Former Cigarettes 0.5 15 1 9 - 1993 Passive Smoke Exposure: Past Smokeless Tobacco: Never Tobacco Cessation:Counseling Given: Not Answered Comments:Quit 1993 Alcohol Use Standard Drinks/Week Comments No 0 (1 standard drink = 0.6 oz pur e alcohol) OASIS D0700: Social Isolation Answer Da te Recorded Frequency of experiencing loneliness or isolatio n Rarely 07/08/2024 [facility] Utilities Answer Date Recorded In the past 12 months has e Cardiola, gas, oil, or water Milk threatened to shut off services in your home? No 10/02/2023 Social Connection and Isolat ion Panel [NHANES] Answer Date Recorded In a typical week, how many times do you talk on the phone with family, friends, or neighbors? More than three times a week 10/02/2023 How often do you get togethe r with friends or relatives? More than three times a week 10/02/2023 How often do you attend chur ch or jehovah's witness services? Never 10/02/2023 Do you belong to any clubs o r organizations such as islam groups, unions, fraternal or athletic groups, or school groups? No 10/02/2023 How often do you attend meet ings of the clubs or organizations you belong to? Never 10/02/2023 Are you , , di vorced, , never , or living with a partner? 10/02/2023 AUDIT-C Answer Date Recorded Q1: How often do you have a drink containing alcohol? Never 04/22/2024 Q2: How many drinks containi ng alcohol do you have on a typical day when you are drinking? Patient does not drink Q3: How often do you have si x or more drinks on one occasion? Never 04/22/2024 Overall Financial Resource Strain (CARDIA) Answe r Date Recorded How hard is it for you to pa y for the very basics like food, housing, medical care, and heating? Not very hard 10/02/2023 PHQ-2 Answer Date Recorded PHQ-2 Total Score 0 09/06/2023 Hunger Vital Sign Answer Date Recorded Within the past 12 months, y ou worried that your food would run out before you got the money to buy more. Never true 06/13/20 24 Within the past 12 months, t he food you bought just didn't last and you didn't have money to get more. Never true 06/13/2024 PRAPARE - Transportation Answer Date Re corded In the past 12 months, has l ack of transportation kept you from medical appointments or from getting medications? No 09/20 In the past 12 months, has l ack of transportation kept you from meetings, work, or from getting things needed for daily living? No 10/02/2023 Housing Stability Vital Sign Answer Moe e Recorded In the last 12 months, was t here a time when you were not able to pay the mortgage or rent on time? No 10/02/2023 In the last 12 months, how many places have you lived? 1 10/02/2023 In the last 12 months, was t here a time when you did not have a steady place to sleep or slept in a detention (including now)? No 10/02/2023 Personal Safety Answer Date Recorded Have you ever been in or are you currently in a harmful physical or emotional relationship or is someone making you feel afraid or unsafe? Denies 06/27/2024 Comments No Sex and Gender Information Value Date Recorded Sex Assigned at Not on file Legal Sex Female 12:20 AM [employer]INION POL[employer] Gender Identity Female 04/17/2021 10:27 AM CDT Sexual Orientation Straight 04/17/2021 10 :27 AM CDT Obstetrics History Last Filed Vital Signs Vital Sign Reading Time Taken Comments Blood Pressure 128/72 09/01/2024 1:10 PM [employer]INION [employer]ER Pulse 90 09/01/2024 1:10 PM [employer]INION POLISHER Temperature 37.2 C (99 F) 09/01/2024 1:10 PM [employer]INION [employer]ISHER Respiratory Rate 18 09/01/2024 1:10 PM [employer]INION POLISHER Oxygen Saturation 98% 09/01/2024 1:10 PM PINION POLISHER Inhaled Oxygen Concentration - - Weight 53.5 kg (118 lb) 09/01/2024 1:10 PM [employer]INION POLISHER Height 152.4 cm (5') 08/28/2024 1:21 PM PINION POLISHER Body Mass Index 23.05 08/28/2024 1:21 PM PINION POLISHER Plan of Treatment Health Maintenance Due Date Last Done Comments Breast Cancer Screening-Mammogram 1960 Osteoporosis Screening-Bone Density Scan 1960 DTaP/Tdap/Td Vaccine (1 - Tdap) 1969 Pneumococcal vaccine 65+ (2 of 2 - PPSV23 or PCV20) 02/26/2019 01/01/2019 Zoster Vaccine (2 of 2) 04/09/2019 02/12/2019 Well Visit 65+ 2023 Depression Screening 08/15/2024 08/15/2023 Fall Risk Assessment 04/22/2025 04/22/2024 Colon Cancer Screening-Colonoscopy 01/03/2034 01/04/2024, 08/17/2023, 05/18/2022, Additional history exists Hepatitis B Screening Completed 02/23/2023 Hepatitis C Screening Completed 02/23/2023 , 10/09/2020, 10/09/2020 Colon Cancer Screening-CT Colonography Discontinued 01/04/2024, 08/17/2023, 05/18/2022, Additional history exists Colon Cancer Screening-DNA Stool Discontinued 01/04/2024, 08/17/2023, 05/18/2022, Additional history exists Colon Cancer Screening-FIT Discontinued 01/03, 08/17/2023, 05/18/2022, Additional history exists Colon Cancer Screening-Sigmoidoscopy Discontinued 01/04/2024, 08/17/2023, 05/18/2022, Additional history exists Influenza Vaccine Completed 06/17/2024, , 05/01/2019, Additional history exists Medical Devices Implanted Type Area Thread Marker Device Identifier Shelf Expiration Date Model / Serial / Lot Picc Line Implanted:Qty: 1 Other - see comments Left: Arm Procedures Procedure Name Priority Date/Time Associated Diagnosis Comments EGFR STAT 09/01/2024 1:30 PM [employer]INION [employer]ER DIFFERENTIAL AUTO STAT 09/01/2024 1:3 0 PM [employer]INION [employer]ER PHOSPHORUS Routine 09/01/2024 1:30 PM [employer]INION POLISHER MAGNESIUM STAT 09/01/2024 1:30 PM [employer]INION POLISHER CBC WITH AUTO DIFFERENTIAL STAT 09/01/2024 1:30 PM [employer]INION POLISHER COMPREHENSIVE METABOLIC PANEL STAT 09/01/2024 1:30 PM [employer]INION POLISHER EGFR STAT 08/26/2024 1:00 PM [employer]INION POL[employer]ER PHOSPHORUS STAT 08/26/2024 1:00 PM [employer]INION POLISHER MAGNESIUM STAT 08/26/2024 1:00 PM [employer]INION POLISHER GLUCOSE, RANDOM (OUTREACH) STAT 08/26/2024 1:00 PM [employer]INION POL[employer]ER COMPREHENSIVE METABOLIC PANEL WITHOUT GLUCOSE (OUTREACH) STAT 08/26/2024 1:00 PM PINION POLISHER CYTOMEGALOVIRUS (CMV) DNA, QUANT GEN LAB STAT 08/26/2024 1:00 PM PINION POLISHER EGFR Routine 08/19/2024 1:30 PM PINION POLISHER DIFFERENTIAL AUTO Routine 08/19/2024 1:3 0 PM [employer]INION POLISHER PHOSPHORUS Routine 08/19/2024 1:30 PM PINION POLISHER MAGNESIUM Routine 08/19/2024 1:30 PM PINION POLISHER CBC WITH AUTO DIFFERENTIAL Routine 08/19/2024 1:30 PM PINION POLISHER GLUCOSE, RANDOM (OUTREACH) Routine 08/19/2024 1:30 PM PINION POLISHER COMPREHENSIVE METABOLIC PANEL WITHOUT GLUCOSE (OUTREACH) Routine 08/19/2024 1:30 PM PINION POLISHER EGFR STAT 08/11/2024 2:40 PM PINION POLISHER PHOSPHORUS STAT 08/11/2024 2:40 PM PINION POLISHER MAGNESIUM STAT 08/11/2024 2:40 PM PINION POLISHER COMPREHENSIVE METABOLIC PANEL STAT 08/11/2024 2:40 PM PINION POLISHER CYTOMEGALOVIRUS (CMV) DNA, QUANT GEN LAB STAT 08/11/2024 2:40 PM [employer]INION POLISHER EGFR Routine 08/04/2024 2:40 PM PINION POLISHER DIFFERENTIAL AUTO Routine 08/04/2024 2:4 0 PM PINION POLISHER PHOSPHORUS Routine 08/04/2024 2:40 PM PINION POLISHER MAGNESIUM Routine 08/04/2024 2:40 PM PINION POLISHER CBC WITH AUTO DIFFERENTIAL Routine 08/04/2024 2:40 PM PINION POLISHER GLUCOSE, RANDOM (OUTREACH) Routine 08/04/2024 2:40 PM PINION POLISHER COMPREHENSIVE METABOLIC PANEL WITHOUT GLUCOSE (OUTREACH) Routine 08/04/2024 2:40 PM PINION POLISHER EGFR Routine 07/29/2024 2:30 PM PINION POLISHER PHOSPHORUS Routine 07/29/2024 2:30 PM PINION POLISHER MAGNESIUM Routine 07/29/2024 2:30 PM PINION POLISHER GLUCOSE, RANDOM (OUTREACH) Routine 07/29/2024 2:30 PM PINION POLISHER COMPREHENSIVE METABOLIC PANEL WITHOUT GLUCOSE (OUTREACH) Routine 07/29/2024 2:30 PM PINION POLISHER CYTOMEGALOVIRUS (CMV) DNA, QUANT GEN LAB Routine 07/29/2024 2:30 PM PINION POLISHER EGFR STAT 07/21/2024 1:00 PM PINION POLISHER PHOSPHORUS STAT 07/21/2024 1:00 PM PINION POLISHER MAGNESIUM STAT 07/21/2024 1:00 PM PINION POLISHER COMPREHENSIVE METABOLIC PANEL STAT 07/21/2024 1:00 PM PINION POLISHER EGFR STAT 07/14/2024 2:40 PM PINION POLISHER DIFFERENTIAL AUTO STAT 07/14/2024 2:4 0 PM PINION POLISHER PHOSPHORUS STAT 07/14/2024 2:40 PM PINION POLISHER MAGNESIUM STAT 07/14/2024 2:40 PM PINION POLISHER CBC WITH AUTO DIFFERENTIAL STAT 07/14/2024 2:40 PM PINION POLISHER COMPREHENSIVE METABOLIC PANEL STAT 07/14/2024 2:40 PM PINION POLISHER CYTOMEGALOVIRUS (CMV) DNA, QUANT GEN LAB STAT 07/14/2024 2:40 PM PINION POLISHER EGFR STAT 07/08/2024 1:45 PM PINION POLISHER PHOSPHORUS Routine 07/08/2024 1:45 PM PINION POLISHER MAGNESIUM STAT 07/08/2024 1:45 PM PINION POLISHER COMPREHENSIVE METABOLIC PANEL STAT 07/08/2024 1:45 PM PINION POLISHER EGFR STAT 06/30/2024 1:50 PM PINION POLISHER PHOSPHORUS STAT 06/30/2024 1:50 PM PINION POLISHER MAGNESIUM STAT 06/30/2024 1:50 PM PINION POLISHER GLUCOSE, RANDOM (OUTREACH) STAT 06/30/2024 1:50 PM PINION POLISHER COMPREHENSIVE METABOLIC PANEL WITHOUT GLUCOSE (OUTREACH) STAT 06/30/2024 1:50 PM PINION POLISHER CYTOMEGALOVIRUS (CMV) DNA, QUANT GEN LAB STAT 06/30/2024 1:50 PM PINION POLISHER EGFR STAT 06/23/2024 2:20 PM PINION POLISHER DIFFERENTIAL AUTO STAT 06/23/2024 2:2 0 PM PINION POLISHER PHOSPHORUS Routine 06/23/2024 2:20 PM PINION POLISHER MAGNESIUM STAT 06/23/2024 2:20 PM PINION POLISHER CBC WITH AUTO DIFFERENTIAL STAT 06/23/2024 2:20 PM PINION POLISHER COMPREHENSIVE METABOLIC PANEL STAT 06/23/2024 2:20 PM PINION POLISHER CYTOMEGALOVIRUS (CMV) DNA, QUANT GEN LAB STAT 06/23/2024 2:20 PM PINION POLISHER CALPROTECTIN, FECAL Routine 06/17/2024 4 :20 PM PINION POLISHER Change in bowel habits Diarrhea, unspecified type Crohn's disease of small and large intestines with complication (CMS/HCC) (HCC) C. DIFFICILE TESTING Routine 06/17/2024 4:20 PM [employer]INION POLISHER Change in bowel habits Diarrhea, unspecified type Crohn's disease of small and large intestines with complication (CMS/HCC) (HCC) URINALYSIS, MICROSCOPIC ONLY Routine 06/17/2024 12:28 PM [employer]INION POLISHER Abdominal pain URINALYSIS AND REFLEX TO MICROSCOPIC AND CULTURE Routine 06/17/2024 12:28 PM PINION POLISHER Abdominal pain EGFR Routine 06/16/2024 1:30 PM PINION POLISHER PHOSPHORUS Routine 06/16/2024 1:30 PM PINION POLISHER MAGNESIUM Routine 06/16/2024 1:30 PM PINION POLISHER COMPREHENSIVE METABOLIC PANEL Routine 06/16/2024 1:30 PM PINION POLISHER CYTOMEGALOVIRUS (CMV) DNA, QUANT GEN LAB Routine 06/16/2024 1:30 PM PINION POLISHER EGFR STAT 06/09/2024 2:00 PM PINION POLISHER DIFFERENTIAL AUTO STAT 06/09/2024 2:0 0 PM PINION POLISHER PHOSPHORUS STAT 06/09/2024 2:00 PM PINION POLISHER MAGNESIUM STAT 06/09/2024 2:00 PM PINION POLISHER CBC WITH AUTO DIFFERENTIAL STAT 06/09/2024 2:00 PM PINION POLISHER COMPREHENSIVE METABOLIC PANEL STAT 06/09/2024 2:00 PM PINION POLISHER CYTOMEGALOVIRUS (CMV) DNA, QUANT GEN LAB STAT 06/09/2024 2:00 PM PINION POLISHER COLONOSCOPY 01/04/2024 12:25 PM CDT HEPATITIS C ANTIBODY Routine 02/23/2023 11:47 AM CDT NAFLD (nonalcoholic fatty liver disease) Elevated liver enzymes from Last 3 Months or Most Recently Relevant to Health Maintenance Results * eGFR (09/01/2024 1:30 PM PINION POLISHER) eGFR 81 >=60 mL/min/1. 73 m2 Comment: Interpretive Data Reference Interval Normal >/= 90 mL/min/1.73m2 Mildly decreased* 60 - 89 mL/min/1.73m2 Mildly to moderately decreased 45 - 59 mL/min/1.73m2 Moderately to severely decreased 30 - 44 mL/min/1.73m2 Severely decreased 15 - 29 mL/min/1.73m2 Kidney Failure < 15 mL/min/1.73m2 *Relative to young adult level Estimated glomerular filtration rate is determined by the 2020 CKD-EPI equation recommended by the National Kidney Foundation (A Unifying Approach to GFR Estimation: Recommendations of the NKF-ASK Task Force on Reassessing the Inclusion of Race in Diagnosing Kidney Disease, JASN 2020). The CKD-EPI equation should not be used for patients with unstable renal function and has not been validated in children and those over 70. Current interpretive data was last reviewed 2021. Blood 09/01/2024 1:30 PM PINION POLISHER 09/01/2024 2:15 PM PINION POLISHER us Notinfile Unknown LAB BLOOD ORDERABLES Final Res ult [place] [id number] [facility] Department [place] [address] * Differential, auto (09/01/2024 1:30 PM PINION POLISHER) Neutrophil abs 2.6 1.5 - 6.5 K/cumm Imm gran abs 0.0 0.0 - 0.1 K/cumm [facility] Lymphocyte abs 1.1 0.8 - 3.3 K/cumm [facility] Monocyte abs 0.4 0.2 - 0.8 K/cumm [facility] Eosinophil abs 0.1 0.0 - 0.5 K/cumm [facility] Basophil abs 0.0 0.0 - 0.1 K/cumm [facility] Neutrophil pct 63.1 % [facility] Comment: Interpretive Data Percent cell count reference ranges are not reported, since discordance with absolute values may lead to misinterpretation of CBC data. Current Interpretive Data was last revised on 2017. Imm gran pct 0.5 % [facility] Comment: Interpretive Data Percent cell count reference ranges are not reported, since discordance with absolute values may lead to misinterpretation of CBC data. Current Interpretive Data was last revised on 2017. Lymphocyte pct 26.2 % [facility] Comment: Interpretive Data Percent cell count reference ranges are not reported, since discordance with absolute values may lead to misinterpretation of CBC data. Current Interpretive Data was last revised on 2017. Monocyte pct 8.5 % [facility] Comment: Interpretive Data Percent cell count reference ranges are not reported, since discordance with absolute values may lead to misinterpretation of CBC data. Current Interpretive Data was last revised on 2017. Eosinophil pct 1.2 % [facility] Comment: Interpretive Data Percent cell count reference ranges are not reported, since discordance with absolute values may lead to misinterpretation of CBC data. Current Interpretive Data was last revised on 2017. Basophil pct 0.5 % [facility] Comment: Interpretive Data Percent cell count reference ranges are not reported, since discordance with absolute values may lead to misinterpretation of CBC data. Current Interpretive Data was last revised on 2017. Blood 09/01/2024 1:30 PM PINION POLISHER 09/01/2024 2:15 PM PINION POLISHER us Notinfile Unknown LAB BLOOD ORDERABLES Final Res ult [facility] [address] [facility] Department [place] [address] * (ABNORMAL) CBC with auto differential (09/01/2024 1:30 PM PINION POLISHER) WBC 4.1 3.8 - 9.9 K/cumm Hgb 9.5(L) 11.9 - 15.5 g/dL [facility] Hct 28.6(L) 35.6 - 45.5 % [facility] Plt 146(L) 150 - 400 K/cumm [facility] MPV 9.9 9.1 - 12.3 fL [facility] RBC 3.16(L) 3.90 - 5.20 M/cumm [facility] MCV 90.5 81.3 - 96.4 fL [facility] MCH 30.1 27.1 - 33.3 pg [facility] MCHC 33.2 32.3 - 35.7 g/dL [facility] RDW CV 13.7 11.1 - 14.9 % [facility] RDW SD 45.1 35.7 - 48.1 fL [facility] NRBC abs 0.00 0.00 - 0.01 K/cumm [facility] Blood 09/01/2024 1:30 PM [employer]INION POLISHER 09/01/2024 2:15 PM PINION POLISHER us Notinfile Unknown LAB BLOOD ORDERABLES Final Res ult Performing Organization Address [facility] de Phone Number [address] [place] [place] [address] * Phosphorus (09/01/2024 1:30 PM PINION POLISHER) [facility] Phosphorus, pl 3.7 2.3 - 4.5 mg/dL Blood 09/01/2024 1:30 PM PINION POLISHER 09/01/2024 2:15 PM PINION POLISHER us Notinfile Unknown LAB BLOOD ORDERABLES Final Res ult Performing Organization Address [facility] de Phone Number [address] [address] * Magnesium (09/01/2024 1:30 PM PINION POLISHER) [facility] Magnesium 2.1 1.4 - 2.5 mg/dL Blood 09/01/2024 1:30 PM PINION POLISHER 09/01/2024 2:15 PM PINION POLISHER Notinfile Unknown LAB BLOOD ORDERABLES Final Res ult Performing Organization Address [facility] de Phone Number [address] [address] * (ABNORMAL) Comprehensive metabolic panel (09/01/2024 1:30 PM PINION POLISHER) [facility] Sodium 133(L) 135 - 145 mmol/L Potassium, pl 3.8 3.3 - 4.9 mmol/L [facility] Chloride 100 97 - 110 mmol/L [facility] CO2 22 22 - 32 mmol/L [facility] Anion gap 11 2 - 15 mmol/L [facility] BUN 17 6 - 25 mg/dL [facility] Creatinine 0.80 0.60 - 1.10 mg/dL [facility] Glucose 118 70 - 199 mg/dL [facility] Comment: Interpretive Data Fasting glucose >/= 126 mg/dl is diagnostic for diabetes. Fasting is defined as no caloric intake for at least 8 hours. Fasting glucose between 100 mg/dl to 125 mg/dl is diagnostic of prediabetes. In a patient with classic symptoms of hyperglycemia or hyperglycemic crisis, a random glucose >/= 200 mg/dl is diagnostic for diabetes. In the absence of unequivocal hyperglycemia, results should be confirmed by repeat testing. The classification and Diagnosis of Diabetes Diabetes Care 2021; 46: S19-S40. Current interpretive data was last revised 2022. Calcium 9.1 8.5 - 10.3 mg/dL [facility] Bilirubin, total 0.4 0.1 - 1.2 mg/dL [facility] Protein, pl 7.3 6.5 - 8.5 g/dL [facility] Albumin 4.0 3.5 - 5.0 g/dL [facility] Alk phos 129 40 - 130 Units/L [facility] ALT 20 7 - 45 Units/L [facility] AST 30 10 - 45 Units/L [facility] Blood 09/01/2024 1:30 PM [employer]INION POLISHER 09/01/2024 2:15 PM PINION POLISHER us Notinfile Unknown LAB BLOOD ORDERABLES Final Res ult [facility] [address] [facility] Department [place] [address] * (ABNORMAL) Cytomegalovirus (CMV) DNA PCR, quantitative Blood (08/26/2024 1:00 PM PINION POLISHER) [facility] CMV DNA Detected( A) [facility] Comment: Interpretive Data: The quantifiable range of this assay is 34 IUnits/mL to 10,000,000 IUnits/mL (1.53 log IUnits/mL to 7.0 log IUnits/mL). Testing was performed by the [employer] CMV Test ([employer] Testing performed at [facility]. Current interpretive data was last revised on 2021. Testing performed by: [facility], [address] [place]., [address] CMV DNA IU/mL <34 IUnits/mL [facility] Comment:Testing performed by : [facility], [address] [place]., [address] CMV DNA log IU/mL <1.53 log IUnits/mL [facility] Comment:Testing performed by : [facility], [address] [place]., [address] Blood 08/26/2024 1:00 PM PINION POLISHER 08/26/2024 7:33 PM PINION POLISHER us Notinfile Unknown LAB MICROBIOLOGY - GENERAL ORD ERABLES Final Result Performing Organization Address [facility] Co de Phone Number [id number] [place] [address] [facility] * Glucose, random (Outreach) (08/26/2024 1:00 PM PINION POLISHER) Glucose 111 70 - 199 mg/dL Comment: Interpretive Data Fasting glucose >/= 126 mg/dl is diagnostic for diabetes. Fasting is defined as no caloric intake for at least 8 hours. Fasting glucose between 100 mg/dl to 125 mg/dl is diagnostic of prediabetes. In a patient with classic symptoms of hyperglycemia or hyperglycemic crisis, a random glucose >/= 200 mg/dl is diagnostic for diabetes. In the absence of unequivocal hyperglycemia, results should be confirmed by repeat testing. The classification and Diagnosis of Diabetes Diabetes Care 2021; 46: S19-S40. Current interpretive data was last revised 2022. Blood 08/26/2024 1:00 PM PINION POLISHER 08/26/2024 4:17 PM PINION POLISHER us Notinfile Unknown LAB BLOOD ORDERABLES Final Res ult Performing Organization Address [facility] Co de Phone Number [address] [place] [address] * eGFR (08/26/2024 1:00 PM PINION POLISHER) Pathologist [facility] eGFR 70 >=60 mL/min/1. 73 m2 Comment: Interpretive Data Reference Interval Normal >/= 90 mL/min/1.73m2 Mildly decreased* 60 - 89 mL/min/1.73m2 Mildly to moderately decreased 45 - 59 mL/min/1.73m2 Moderately to severely decreased 30 - 44 mL/min/1.73m2 Severely decreased 15 - 29 mL/min/1.73m2 Kidney Failure < 15 mL/min/1.73m2 *Relative to young adult level Estimated glomerular filtration rate is determined by the 2020 CKD-EPI equation recommended by the National Kidney Foundation (A Unifying Approach to GFR Estimation: Recommendations of the NKF-ASK Task Force on Reassessing the Inclusion of Race in Diagnosing Kidney Disease, JASN 2020). The CKD-EPI equation should not be used for patients with unstable renal function and has not been validated in children and those over 70. Current interpretive data was last reviewed 2021. Blood 08/26/2024 1:00 PM PINION POLISHER 08/26/2024 4:17 PM PINION POLISHER us Notinfile Unknown LAB BLOOD ORDERABLES Final Res ult [facility] [address] [facility] Department [place] [address] * (ABNORMAL) Comprehensive metabolic panel, without glucose (Outreach) (08/26/2024 1:00 PM PINION POLISHER) [facility] Sodium 131(L) 135 - 145 mmol/L Potassium, pl 4.0 3.3 - 4.9 mmol/L [facility] Chloride 96(L) 97 - 110 mmol/L [facility] CO2 22 22 - 32 mmol/L [facility] Anion gap 13 2 - 15 mmol/L [facility] BUN 24 6 - 25 mg/dL [facility] Creatinine 0.91 0.60 - 1.10 mg/dL [facility] Calcium 9.3 8.5 - 10.3 mg/dL [facility] Protein, pl 7.9 6.5 - 8.5 g/dL [facility] Albumin 4.2 3.5 - 5.0 g/dL [facility] Bilirubin, total 0.5 0.1 - 1.2 mg/dL [facility] Alk phos 133(H) 40 - 130 Units/L [facility] AST 30 10 - 45 Units/L [facility] ALT 21 7 - 45 Units/L [facility] Blood 08/26/2024 1:00 PM [employer] 08/26/2024 4:17 PM [employer]INION [employer]ER Notinfile Unknown LAB BLOOD ORDERABLES Final Res ult Performing Organization Address [facility] Co de Phone Number [address] [place] [address] * (ABNORMAL) Phosphorus (08/26/2024 1:00 PM PINION POLISHER) Pathologist [facility] Phosphorus, pl 4.9(H) 2.3 - 4.5 mg/dL Blood 08/26/2024 1:00 PM [employer] 08/26/2024 4:17 PM [employer] us Notinfile Unknown LAB BLOOD ORDERABLES Final Res ult Performing Organization Address [facility] [place] de Phone Number [address] [address] * Magnesium (08/26/2024 1:00 PM PINION POLISHER) [facility] Magnesium 2.3 1.4 - 2.5 mg/dL Blood 08/26/2024 1:00 PM [employer] 08/26/2024 4:17 PM [employer] Notinfile Unknown LAB BLOOD ORDERABLES Final Res ult Performing Organization Address [facility] Co de Phone Number [address] [place] [place] [address] * Glucose, random (Outreach) (08/19/2024 1:30 PM [employer]INION [employer]ER) [facility] Glucose 102 70 - 199 mg/dL Comment: Interpretive Data Fasting glucose >/= 126 mg/dl is diagnostic for diabetes. Fasting is defined as no caloric intake for at least 8 hours. Fasting glucose between 100 mg/dl to 125 mg/dl is diagnostic of prediabetes. In a patient with classic symptoms of hyperglycemia or hyperglycemic crisis, a random glucose >/= 200 mg/dl is diagnostic for diabetes. In the absence of unequivocal hyperglycemia, results should be confirmed by repeat testing. The classification and Diagnosis of Diabetes Diabetes Care 2021; 46: S19-S40. Current interpretive data was last revised 2022. Blood 08/19/2024 1:30 PM [employer] 08/19/2024 4:07 PM [employer]ER Luis Miguel Medina MD LAB BLOOD ORDERABLES Final R esult Performing Organization Address [facility] Co de Phone Number MANDY [address] [facility] Department [place] [address] * eGFR (08/19/2024 1:30 PM [employer]ER) eGFR 80 >=60 mL/min/1. 73 m2 Comment: Interpretive Data Reference Interval Normal >/= 90 mL/min/1.73m2 Mildly decreased* 60 - 89 mL/min/1.73m2 Mildly to moderately decreased 45 - 59 mL/min/1.73m2 Moderately to severely decreased 30 - 44 mL/min/1.73m2 Severely decreased 15 - 29 mL/min/1.73m2 Kidney Failure < 15 mL/min/1.73m2 *Relative to young adult level Estimated glomerular filtration rate is determined by the 2020 CKD-EPI equation recommended by the National Kidney Foundation (A Unifying Approach to GFR Estimation: Recommendations of the NKF-ASK Task Force on Reassessing the Inclusion of Race in Diagnosing Kidney Disease, JASN 2020). The CKD-EPI equation should not be used for patients with unstable renal function and has not been validated in children and those over 70. Current interpretive data was last reviewed 2021. Blood 08/19/2024 1:30 PM [employer]ER 08/19/2024 4:07 PM [employer]INION [employer]ER Luis Miguel Medina MD LAB BLOOD ORDERABLES Final R esult Performing Organization Address City/[facility]/ZIP Co de Phone Number MANDY [address] [facility] Department [place] [address] * Differential, auto (08/19/2024 1:30 PM [employer]INION POLISHER) Neutrophil abs 2.4 1.5 - 6.5 K/cumm Imm gran abs 0.0 0.0 - 0.1 K/cumm [facility] Lymphocyte abs 1.7 0.8 - 3.3 K/cumm [facility] Monocyte abs 0.4 0.2 - 0.8 K/cumm [facility] Eosinophil abs 0.1 0.0 - 0.5 K/cumm [facility] Basophil abs 0.0 0.0 - 0.1 K/cumm [facility] Neutrophil pct 51.8 % [facility] Comment: Interpretive Data Percent cell count reference ranges are not reported, since discordance with absolute values may lead to misinterpretation of CBC data. Current Interpretive Data was last revised on 2017. Imm gran pct 0.2 % [facility] Comment: Interpretive Data Percent cell count reference ranges are not reported, since discordance with absolute values may lead to misinterpretation of CBC data. Current Interpretive Data was last revised on 2017. Lymphocyte pct 37.7 % [facility] Comment: Interpretive Data Percent cell count reference ranges are not reported, since discordance with absolute values may lead to misinterpretation of CBC data. Current Interpretive Data was last revised on 2017. Monocyte pct 8.1 % [facility] Comment: Interpretive Data Percent cell count reference ranges are not reported, since discordance with absolute values may lead to misinterpretation of CBC data. Current Interpretive Data was last revised on 2017. Eosinophil pct 1.8 % [facility] Comment: Interpretive Data Percent cell count reference ranges are not reported, since discordance with absolute values may lead to misinterpretation of CBC data. Current Interpretive Data was last revised on 2017. Basophil pct 0.4 % [facility] Comment: Interpretive Data Percent cell count reference ranges are not reported, since discordance with absolute values may lead to misinterpretation of CBC data. Current Interpretive Data was last revised on 2017. Blood 08/19/2024 1:30 PM [employer] 08/19/2024 4:08 PM [employer]ER Luis Miguel Medina MD LAB BLOOD ORDERABLES Final R [facility] Performing Organization Address [facility] Co de Phone Number MANDY [address] [place] [address] * (ABNORMAL) Comprehensive metabolic panel, without glucose (Outreach) (08/19/2024 1:30 PM PINION POLISHER) [facility] Sodium 134(L) 135 - 145 mmol/L Potassium, pl 4.0 3.3 - 4.9 mmol/L [facility] Chloride 101 97 - 110 mmol/L [facility] CO2 22 22 - 32 mmol/L [facility] Anion gap 11 2 - 15 mmol/L [facility] BUN 18 6 - 25 mg/dL [facility] Creatinine 0.81 0.60 - 1.10 mg/dL [facility] Calcium 9.4 8.5 - 10.3 mg/dL [facility] Protein, pl 7.7 6.5 - 8.5 g/dL [facility] Albumin 4.1 3.5 - 5.0 g/dL [facility] Bilirubin, total 0.4 0.1 - 1.2 mg/dL [facility] Alk phos 129 40 - 130 Units/L [facility] AST 29 10 - 45 Units/L [facility] ALT 22 7 - 45 Units/L [facility] Blood 08/19/2024 1:30 PM [employer] 08/19/2024 4:07 PM [employer]ER Luis Miguel Medina MD LAB BLOOD ORDERABLES Final R esult Performing Organization Address City/[facility]/ZIP Co de Phone Number [address] [address] * (ABNORMAL) CBC with auto differential (08/19/2024 1:30 PM [employer]INION [employer]ER) [facility] WBC 4.6 3.8 - 9.9 K/cumm Hgb 10.0(L) 11.9 - 15.5 g/dL [facility] Hct 29.9(L) 35.6 - 45.5 % [facility] Plt 168 150 - 400 K/cumm [facility] MPV 10.0 9.1 - 12.3 fL [facility] RBC 3.32(L) 3.90 - 5.20 M/cumm [facility] MCV 90.1 81.3 - 96.4 fL [facility] MCH 30.1 27.1 - 33.3 pg [facility] MCHC 33.4 32.3 - 35.7 g/dL [facility] RDW CV 14.6 11.1 - 14.9 % [facility] RDW SD 48.2(H) 35.7 - 48.1 fL [facility] NRBC abs 0.00 0.00 - 0.01 K/cumm [facility] Blood 08/19/2024 1:30 PM [employer]ER 08/19/2024 4:08 PM [employer]ER Luis Miguel Medina MD LAB BLOOD ORDERABLES Final R esult Performing Organization Address [facility] de Phone Number [address] [place] [address] * Phosphorus (08/19/2024 1:30 PM PINION POLISHER) Phosphorus, pl 4.0 2.3 - 4.5 mg/dL Blood 08/19/2024 1:30 PM [employer]INION [employer]ER 08/19/2024 4:07 PM [employer]ER Luis Miguel Medina MD LAB BLOOD ORDERABLES Final R esult Performing Organization Address [facility] de Phone Number [address] [address] * Magnesium (08/19/2024 1:30 PM [employer]ER) Magnesium 2.1 1.4 - 2.5 mg/dL Blood 08/19/2024 1:30 PM [employer]ISHER 08/19/2024 4:07 PM PINION [employer]ER Luis Miguel Medina MD LAB BLOOD ORDERABLES Final R esult Performing Organization Address [facility]/ZIP Co de Phone Number MANDY [address] [facility] Department [place] [address] * (ABNORMAL) Cytomegalovirus (CMV) DNA PCR, quantitative Blood (08/11/2024 2:40 PM PINION POLISHER) [facility] CMV DNA Detected( A) [facility] Comment: Interpretive Data: The quantifiable range of this assay is 34 IUnits/mL to 10,000,000 IUnits/mL (1.53 log IUnits/mL to 7.0 log IUnits/mL). Testing was performed by the [facility] 68[facility] CMV Test ([employer] Testing performed at [facility]. Current interpretive data was last revised on 2021. Testing performed by: [facility], [address] [place]., [address] CMV DNA IU/mL <34 IUnits/mL MANDY Comment:Testing performed by : [facility], [address] [place]., [address] CMV DNA log IU/mL <1.53 log IUnits/mL [facility] Comment:Testing performed by : [facility], [address] [place]., [address] Blood 08/11/2024 2:40 PM PINION POLISHER 08/11/2024 5:27 PM PINION POLISHER us Notinfile Unknown LAB MICROBIOLOGY - GENERAL ORD ERABLES Final Result Performing Organization Address City/[facility]/ZIP Co de Phone Number MANDY [address] [facility] Department [place] [address] [facility] * eGFR (08/11/2024 2:40 PM PINION POLISHER) [facility] eGFR 71 >=60 mL/min/1. 73 m2 Comment: Interpretive Data Reference Interval Normal >/= 90 mL/min/1.73m2 Mildly decreased* 60 - 89 mL/min/1.73m2 Mildly to moderately decreased 45 - 59 mL/min/1.73m2 Moderately to severely decreased 30 - 44 mL/min/1.73m2 Severely decreased 15 - 29 mL/min/1.73m2 Kidney Failure < 15 mL/min/1.73m2 *Relative to young adult level Estimated glomerular filtration rate is determined by the 2020 CKD-EPI equation recommended by the National Kidney Foundation (A Unifying Approach to GFR Estimation: Recommendations of the NKF-ASK Task Force on Reassessing the Inclusion of Race in Diagnosing Kidney Disease, JASN 2020). The CKD-EPI equation should not be used for patients with unstable renal function and has not been validated in children and those over 70. Current interpretive data was last reviewed 2021. Blood 08/11/2024 2:40 PM PINION POLISHER 08/11/2024 3:47 PM PINION [employer]ISHER us Notinfile Unknown LAB BLOOD ORDERABLES Final Res ult Performing Organization Address [facility] de Phone Number СЕ[address] [place] [address] * Phosphorus (08/11/2024 2:40 PM PINION POLISHER) Phosphorus, pl 4.3 2.3 - 4.5 mg/dL Blood 08/11/2024 2:40 PM PINION [employer]ISHER 08/11/2024 3:47 PM PINION POLISHER us Notinfile Unknown LAB BLOOD ORDERABLES Final Res ult Performing Organization Address [facility] de Phone Number [address] [place] [address] * Magnesium (08/11/2024 2:40 PM PINION POLISHER) Magnesium 1.9 1.4 - 2.5 mg/dL Blood 08/11/2024 2:40 PM P[employer]ISHER 08/11/2024 3:47 PM PINION POLISHER us Notinfile Unknown LAB BLOOD ORDERABLES Final Res ult Performing Organization Address [facility] Co de Phone Number СЕР[address] [place] [address] * (ABNORMAL) Comprehensive metabolic panel (08/11/2024 2:40 PM P[employer]ISHER) Sodium 132(L) 135 - 145 mmol/L Potassium, pl 3.5 3.3 - 4.9 mmol/L [facility] Chloride 101 97 - 110 mmol/L [facility] CO2 21(L) 22 - 32 mmol/L [facility] Anion gap 10 2 - 15 mmol/L [facility] BUN 12 6 - 25 mg/dL [facility] Creatinine 0.90 0.60 - 1.10 mg/dL [facility] Glucose 103 70 - 199 mg/dL [facility] Comment: Interpretive Data Fasting glucose >/= 126 mg/dl is diagnostic for diabetes. Fasting is defined as no caloric intake for at least 8 hours. Fasting glucose between 100 mg/dl to 125 mg/dl is diagnostic of prediabetes. In a patient with classic symptoms of hyperglycemia or hyperglycemic crisis, a random glucose >/= 200 mg/dl is diagnostic for diabetes. In the absence of unequivocal hyperglycemia, results should be confirmed by repeat testing. The classification and Diagnosis of Diabetes Diabetes Care 202; 46: S19-S40. Current interpretive data was last revised 2022. Calcium 9.3 8.5 - 10.3 mg/dL [facility] Bilirubin, total 0.5 0.1 - 1.2 mg/dL [facility] Protein, pl 7.7 6.5 - 8.5 g/dL [facility] Albumin 4.2 3.5 - 5.0 g/dL [facility] Alk phos 127 40 - 130 Units/L [facility] ALT 25 7 - 45 Units/L [facility] AST 38 10 - 45 Units/L [facility] Blood 08/11/2024 2:40 PM PINION POLISHER 08/11/2024 3:47 PM [employer]ER us Notinfile Unknown LAB BLOOD ORDERABLES Final Res ult MANDY [address] [facility] Department [place] [address] * Glucose, random (Outreach) (08/04/2024 2:40 PM PINION POLISHER) Glucose 87 70 - 199 mg/dL Comment: Interpretive Data Fasting glucose >/= 126 mg/dl is diagnostic for diabetes. Fasting is defined as no caloric intake for at least 8 hours. Fasting glucose between 100 mg/dl to 125 mg/dl is diagnostic of prediabetes. In a patient with classic symptoms of hyperglycemia or hyperglycemic crisis, a random glucose >/= 200 mg/dl is diagnostic for diabetes. In the absence of unequivocal hyperglycemia, results should be confirmed by repeat testing. The classification and Diagnosis of Diabetes Diabetes Care 2021; 46: S19-S40. Current interpretive data was last revised 2022. Blood 08/04/2024 2:40 PM PINION POLISHER 08/04/2024 4:44 PM PINION POLISHER Luis Miguel Medina MD LAB BLOOD ORDERABLES Final R esult [facility] [address] [facility] Department [place] [address] * eGFR (08/04/2024 2:40 PM PINION POLISHER) eGFR 71 >=60 mL/min/1. 73 m2 Comment: Interpretive Data Reference Interval Normal >/= 90 mL/min/1.73m2 Mildly decreased* 60 - 89 mL/min/1.73m2 Mildly to moderately decreased 45 - 59 mL/min/1.73m2 Moderately to severely decreased 30 - 44 mL/min/1.73m2 Severely decreased 15 - 29 mL/min/1.73m2 Kidney Failure < 15 mL/min/1.73m2 *Relative to young adult level Estimated glomerular filtration rate is determined by the 2020 CKD-EPI equation recommended by the National Kidney Foundation (A Unifying Approach to GFR Estimation: Recommendations of the NKF-ASK Task Force on Reassessing the Inclusion of Race in Diagnosing Kidney Disease, JASN 2020). The CKD-EPI equation should not be used for patients with unstable renal function and has not been validated in children and those over 70. Current interpretive data was last reviewed 2021. Blood 08/04/2024 2:40 PM PINION POLISHER 08/04/2024 4:43 PM PINION POLISHER us Luis Miguel Medina MD LAB BLOOD ORDERABLES Final R esult MANDY [address] [facility] Department [place] [address] * Differential, auto (08/04/2024 2:40 PM PINION POLISHER) Neutrophil abs 2.5 1.5 - 6.5 K/cumm Imm gran abs 0.0 0.0 - 0.1 K/cumm [facility] Lymphocyte abs 1.6 0.8 - 3.3 K/cumm [facility] Monocyte abs 0.4 0.2 - 0.8 K/cumm [facility] Eosinophil abs 0.1 0.0 - 0.5 K/cumm [facility] Basophil abs 0.0 0.0 - 0.1 K/cumm [facility] Neutrophil pct 55.1 % [facility] Comment: Interpretive Data Percent cell count reference ranges are not reported, since discordance with absolute values may lead to misinterpretation of CBC data. Current Interpretive Data was last revised on 2017. Imm gran pct 0.7 % [facility] Comment: Interpretive Data Percent cell count reference ranges are not reported, since discordance with absolute values may lead to misinterpretation of CBC data. Current Interpretive Data was last revised on 2017. Lymphocyte pct 34.3 % [facility] Comment: Interpretive Data Percent cell count reference ranges are not reported, since discordance with absolute values may lead to misinterpretation of CBC data. Current Interpretive Data was last revised on 2017. Monocyte pct 7.7 % [facility] Comment: Interpretive Data Percent cell count reference ranges are not reported, since discordance with absolute values may lead to misinterpretation of CBC data. Current Interpretive Data was last revised on 2017. Eosinophil pct 1.5 % [facility] Comment: Interpretive Data Percent cell count reference ranges are not reported, since discordance with absolute values may lead to misinterpretation of CBC data. Current Interpretive Data was last revised on 2017. Basophil pct 0.7 % [facility] Comment: Interpretive Data Percent cell count reference ranges are not reported, since discordance with absolute values may lead to misinterpretation of CBC data. Current Interpretive Data was last revised on 2017. Blood 08/04/2024 2:40 PM PINION [employer]ISHER 08/04/2024 4:44 PM PINION [employer]ER Luis Miguel Medina MD LAB BLOOD ORDERABLES Final R esult Performing Organization Address City/[facility]/ZIP Co de Phone Number MANDY [address] [place] [address] * (ABNORMAL) Comprehensive metabolic panel, without glucose (Outreach) (08/04/2024 2:40 PM PINION POLISHER) Pathologist [facility] Sodium 134(L) 135 - 145 mmol/L Potassium, pl 4.0 3.3 - 4.9 mmol/L [facility] Chloride 100 97 - 110 mmol/L [facility] CO2 23 22 - 32 mmol/L [facility] Anion gap 11 2 - 15 mmol/L [facility] BUN 12 6 - 25 mg/dL [facility] Creatinine 0.89 0.60 - 1.10 mg/dL [facility] Calcium 9.5 8.5 - 10.3 mg/dL [facility] Protein, pl 7.6 6.5 - 8.5 g/dL [facility] Albumin 4.1 3.5 - 5.0 g/dL [facility] Bilirubin, total 0.5 0.1 - 1.2 mg/dL [facility] Alk phos 128 40 - 130 Units/L [facility] AST 30 10 - 45 Units/L [facility] ALT 22 7 - 45 Units/L [facility] Blood 08/04/2024 2:40 PM PINION POLISHER 08/04/2024 4:43 PM PINION POLISHER Luis Miguel Medina MD LAB BLOOD ORDERABLES Final R esult Performing Organization Address City/[facility]/ZIP Co de Phone Number MANDY [address] [place] [place] [address] * (ABNORMAL) CBC with auto differential (08/04/2024 2:40 PM PINION POLISHER) Pathologist [facility] WBC 4.5 3.8 - 9.9 K/cumm Hgb 9.8(L) 11.9 - 15.5 g/dL [facility] Hct 30.0(L) 35.6 - 45.5 % [facility] Plt 175 150 - 400 K/cumm [facility] MPV 9.9 9.1 - 12.3 fL [facility] RBC 3.35(L) 3.90 - 5.20 M/cumm [facility] MCV 89.6 81.3 - 96.4 fL [facility] MCH 29.3 27.1 - 33.3 pg [facility] MCHC 32.7 32.3 - 35.7 g/dL [facility] RDW CV 15.1(H) 11.1 - 14.9 % [facility] RDW SD 50.2(H) 35.7 - 48.1 fL [facility] NRBC abs 0.00 0.00 - 0.01 K/cumm [facility] Blood 08/04/2024 2:40 PM PINION [employer]ISHER 08/04/2024 4:44 PM PINION [employer]ISHER Luis Miguel Medina MD LAB BLOOD ORDERABLES Final R esult Performing Organization Address City/[facility]/ZIP Co de Phone Number [address] [employer] [place], [place] [id number] * (ABNORMAL) Phosphorus (08/04/2024 2:40 PM PINION POLISHER) Phosphorus, pl 5.0(H) 2.3 - 4.5 mg/dL Blood 08/04/2024 2:40 PM PINION [employer]ISHER 08/04/2024 4:43 PM [employer]INION [employer]ISHER Luis Miguel Medina MD LAB BLOOD ORDERABLES Final R esult [address] [place] [address] * Magnesium (08/04/2024 2:40 PM PINION POLISHER) Magnesium 2.0 1.4 - 2.5 mg/dL Blood 08/04/2024 2:40 PM PINION [employer]ISHER 08/04/2024 4:43 PM PINION [employer]ISHER Luis Miguel Medina MD LAB BLOOD ORDERABLES Final R esult Performing Organization Address [facility] Co de Phone Number MANDY [address] [address] * (ABNORMAL) Cytomegalovirus (CMV) DNA PCR, quantitative Blood (07/29/2024 2:30 PM PINION POLISHER) Pathologist [facility] CMV DNA Detected( A) [facility] Comment: Interpretive Data: The quantifiable range of this assay is 34 IUnits/mL to 10,000,000 IUnits/mL (1.53 log IUnits/mL to 7.0 log IUnits/mL). Testing was performed by the [facility] CMV Test ([employer] Testing performed at [facility]. Current interpretive data was last revised on 2021. Testing performed by: [facility], [address] [place]., [address] CMV DNA IU/mL <34 IUnits/mL MANDY Comment:Testing performed by : [facility], [address] [facility], [address] CMV DNA log IU/mL <1.53 log IUnits/mL MANDY Comment:Testing performed by : [facility], [address] [place]., [address] Blood 07/29/2024 2:30 PM PINION [employer]ISHER 07/29/2024 10:16 PM [employer]INION [employer]ISHER Luis Miguel Medina MD LAB MICROBIOLOGY - GENERAL O RDERABLES Final Result Performing Organization Address City/[facility]/ZIP Co de Phone Number MANDY [address] [address] [facility] * Glucose, random (Outreach) (07/29/2024 2:30 PM PINION POLISHER) [facility] Glucose 100 70 - 199 mg/dL Comment: Interpretive Data Fasting glucose >/= 126 mg/dl is diagnostic for diabetes. Fasting is defined as no caloric intake for at least 8 hours. Fasting glucose between 100 mg/dl to 125 mg/dl is diagnostic of prediabetes. In a patient with classic symptoms of hyperglycemia or hyperglycemic crisis, a random glucose >/= 200 mg/dl is diagnostic for diabetes. In the absence of unequivocal hyperglycemia, results should be confirmed by repeat testing. The classification and Diagnosis of Diabetes Diabetes Care 2021; 46: S19-S40. Current interpretive data was last revised 2022. Blood 07/29/2024 2:30 PM PINION [employer]ER 07/29/2024 6:42 PM [employer]INION [employer]ISHER Luis Miguel Medina MD LAB BLOOD ORDERABLES Final R esult MANDY [address] [facility] Department [place] [address] * eGFR (07/29/2024 2:30 PM [employer]INION POLISHER) eGFR 86 >=60 mL/min/1. 73 m2 Comment: Interpretive Data Reference Interval Normal >/= 90 mL/min/1.73m2 Mildly decreased* 60 - 89 mL/min/1.73m2 Mildly to moderately decreased 45 - 59 mL/min/1.73m2 Moderately to severely decreased 30 - 44 mL/min/1.73m2 Severely decreased 15 - 29 mL/min/1.73m2 Kidney Failure < 15 mL/min/1.73m2 *Relative to young adult level Estimated glomerular filtration rate is determined by the 2020 CKD-EPI equation recommended by the National Kidney Foundation (A Unifying Approach to GFR Estimation: Recommendations of the NKF-ASK Task Force on Reassessing the Inclusion of Race in Diagnosing Kidney Disease, JASN 202). The CKD-EPI equation should not be used for patients with unstable renal function and has not been validated in children and those over 70. Current interpretive data was last reviewed 2021. Blood 07/29/2024 2:30 PM PINION POLISHER 07/29/2024 6:42 PM PINION POLISHER Luis Miguel Medina MD LAB BLOOD ORDERABLES Final R esult Performing Organization Address City/[facility]/ZIP Co de Phone Number MANDY [address] [address] * (ABNORMAL) Comprehensive metabolic panel, without glucose (Outreach) (07/29/2024 2:30 PM PINION POLISHER) Sodium 130(L) 135 - 145 mmol/L Potassium, pl 4.0 3.3 - 4.9 mmol/L [facility] Chloride 99 97 - 110 mmol/L [facility] CO2 22 22 - 32 mmol/L [facility] Anion gap 9 2 - 15 mmol/L [facility] BUN 16 6 - 25 mg/dL [facility] Creatinine 0.76 0.60 - 1.10 mg/dL [facility] Calcium 9.1 8.5 - 10.3 mg/dL [facility] Protein, pl 7.1 6.5 - 8.5 g/dL [facility] Albumin 3.9 3.5 - 5.0 g/dL [facility] Bilirubin, total 0.3 0.1 - 1.2 mg/dL [facility] Alk phos 108 40 - 130 Units/L [facility] AST 23 10 - 45 Units/L [facility] ALT 14 7 - 45 Units/L [facility] Blood 07/29/2024 2:30 PM PINION POLISHER 07/29/2024 6:42 PM PINION POLISHER Luis Miguel Medina MD LAB BLOOD ORDERABLES Final R esult Performing Organization Address City/[facility]/ZIP Co de Phone Number MANDY [address] [place] [address] * Phosphorus (07/29/2024 2:30 PM PINION POLISHER) Phosphorus, pl 3.7 2.3 - 4.5 mg/dL Blood 07/29/2024 2:30 PM PINION POLISHER 07/29/2024 6:42 PM PINION POLISHER Luis Miguel Medina MD LAB BLOOD ORDERABLES Final R esult Performing Organization Address City/[facility]/ZIP Co de Phone Number MANDY [address] [place] [address] * Magnesium (07/29/2024 2:30 PM PINION POLISHER) Pathologist [facility] Magnesium 2.1 1.4 - 2.5 mg/dL Blood 07/29/2024 2:30 PM PINION POLISHER 07/29/2024 6:42 PM PINION POLISHER us Luis Miguel Medina MD LAB BLOOD ORDERABLES Final R esult Performing Organization Address [facility] Co de Phone Number [id number] [address] * eGFR (07/21/2024 1:00 PM PINION POLISHER) eGFR 84 >=60 mL/min/1. 73 m2 Comment: Interpretive Data Reference Interval Normal >/= 90 mL/min/1.73m2 Mildly decreased* 60 - 89 mL/min/1.73m2 Mildly to moderately decreased 45 - 59 mL/min/1.73m2 Moderately to severely decreased 30 - 44 mL/min/1.73m2 Severely decreased 15 - 29 mL/min/1.73m2 Kidney Failure < 15 mL/min/1.73m2 *Relative to young adult level Estimated glomerular filtration rate is determined by the 2020 CKD-EPI equation recommended by the National Kidney Foundation (A Unifying Approach to GFR Estimation: Recommendations of the NKF-ASK Task Force on Reassessing the Inclusion of Race in Diagnosing Kidney Disease, JASN 2020). The CKD-EPI equation should not be used for patients with unstable renal function and has not been validated in children and those over 70. Current interpretive data was last reviewed 2021. Blood 07/21/2024 1:00 PM PINION POLISHER 07/21/2024 2:09 PM PINION POLISHER us Notinfile Unknown LAB BLOOD ORDERABLES Final Res ult Performing Organization Address [facility]/ZIP Co de Phone Number [address] [place] [address] * Phosphorus (07/21/2024 1:00 PM PINION POLISHER) [facility] Phosphorus, pl 4.1 2.3 - 4.5 mg/dL Blood 07/21/2024 1:00 PM PINION POLISHER 07/21/2024 2:09 PM PINION POLISHER us Notinfile Unknown LAB BLOOD ORDERABLES Final Res ult Performing Organization Address [facility] de Phone Number [address] [place] [address] * Magnesium (07/21/2024 1:00 PM PINION POLISHER) [facility] Magnesium 1.8 1.4 - 2.5 mg/dL Blood 07/21/2024 1:00 PM PINION POLISHER 07/21/2024 2:09 PM PINION POLISHER Notinfile Unknown LAB BLOOD ORDERABLES Final Res ult Performing Organization Address [facility] de Phone Number [address] [address] * (ABNORMAL) Comprehensive metabolic panel (07/21/2024 1:00 PM PINION POLISHER) [facility] Sodium 131(L) 135 - 145 mmol/L Potassium, pl 3.7 3.3 - 4.9 mmol/L [facility] Chloride 100 97 - 110 mmol/L [facility] CO2 21(L) 22 - 32 mmol/L [facility] Anion gap 10 2 - 15 mmol/L [facility] BUN 11 6 - 25 mg/dL [facility] Creatinine 0.78 0.60 - 1.10 mg/dL [facility] Glucose 117 70 - 199 mg/dL [facility] Comment: Interpretive Data Fasting glucose >/= 126 mg/dl is diagnostic for diabetes. Fasting is defined as no caloric intake for at least 8 hours. Fasting glucose between 100 mg/dl to 125 mg/dl is diagnostic of prediabetes. In a patient with classic symptoms of hyperglycemia or hyperglycemic crisis, a random glucose >/= 200 mg/dl is diagnostic for diabetes. In the absence of unequivocal hyperglycemia, results should be confirmed by repeat testing. The classification and Diagnosis of Diabetes Diabetes Care 2021; 46: S19-S40. Current interpretive data was last revised 2022. Calcium 8.6 8.5 - 10.3 mg/dL [facility] Bilirubin, total 0.5 0.1 - 1.2 mg/dL [facility] Protein, pl 6.9 6.5 - 8.5 g/dL [facility] Albumin 3.8 3.5 - 5.0 g/dL [facility] Alk phos 110 40 - 130 Units/L [facility] ALT 22 7 - 45 Units/L [facility] AST 31 10 - 45 Units/L [facility] Blood 07/21/2024 1:00 PM PINION POLISHER 07/21/2024 2:09 PM PINION POLISHER us Notinfile Unknown LAB BLOOD ORDERABLES Final Res ult [facility] [address] [facility] Department [place] [address] * (ABNORMAL) Cytomegalovirus (CMV) DNA PCR, quantitative Blood (07/14/2024 2:40 PM PINION POLISHER) Pathologist [facility] CMV DNA Detected( A) [facility] Comment: Interpretive Data: The quantifiable range of this assay is 34 IUnits/mL to 10,000,000 IUnits/mL (1.53 log IUnits/mL to 7.0 log IUnits/mL). Testing was performed by the [facility] CMV Test ([employer] Testing performed at [facility]. Current interpretive data was last revised on 2021. Testing performed by: [facility], [address] [place]., [address] CMV DNA IU/mL 39 IUnits/mL MANDY Comment:Testing performed by : [facility], [address] [place]., [address] CMV DNA log IU/mL 1.59 log IUnits/mL MANDY Comment:Testing performed by : [facility], [address] [place]., [address] Blood 07/14/2024 2:40 PM PINION POLISHER 07/14/2024 10:06 PM PINION POLISHER us Notinfile Unknown LAB MICROBIOLOGY - GENERAL ORD ERABLES Final Result Performing Organization Address [facility]/ZIP Co de Phone Number MANDY [address] [place] [address] [facility] * eGFR (07/14/2024 2:40 PM PINION POLISHER) eGFR 71 >=60 mL/min/1. 73 m2 Comment: Interpretive Data Reference Interval Normal >/= 90 mL/min/1.73m2 Mildly decreased* 60 - 89 mL/min/1.73m2 Mildly to moderately decreased 45 - 59 mL/min/1.73m2 Moderately to severely decreased 30 - 44 mL/min/1.73m2 Severely decreased 15 - 29 mL/min/1.73m2 Kidney Failure < 15 mL/min/1.73m2 *Relative to young adult level Estimated glomerular filtration rate is determined by the 2020 CKD-EPI equation recommended by the National Kidney Foundation (A Unifying Approach to GFR Estimation: Recommendations of the NKF-ASK Task Force on Reassessing the Inclusion of Race in Diagnosing Kidney Disease, JASN 2020). The CKD-EPI equation should not be used for patients with unstable renal function and has not been validated in children and those over 70. Current interpretive data was last reviewed 2021. Blood 07/14/2024 2:40 PM PINION POLISHER 07/14/2024 3:57 PM PINION POLISHER us Notinfile Unknown LAB BLOOD ORDERABLES Final Res ult Performing Organization Address City/[facility]/ZIP Co de Phone Number MANDY [address] [employer] [place], [place] [id number] * Differential, auto (07/14/2024 2:40 PM PINION POLISHER) Pathologist [facility] Neutrophil abs 2.8 1.5 - 6.5 K/cumm Imm gran abs 0.0 0.0 - 0.1 K/cumm [facility] Lymphocyte abs 1.5 0.8 - 3.3 K/cumm [facility] Monocyte abs 0.4 0.2 - 0.8 K/cumm [facility] Eosinophil abs 0.1 0.0 - 0.5 K/cumm [facility] Basophil abs 0.0 0.0 - 0.1 K/cumm [facility] Neutrophil pct 57.8 % [facility] Comment: Interpretive Data Percent cell count reference ranges are not reported, since discordance with absolute values may lead to misinterpretation of CBC data. Current Interpretive Data was last revised on 2017. Imm gran pct 0.6 % [facility] Comment: Interpretive Data Percent cell count reference ranges are not reported, since discordance with absolute values may lead to misinterpretation of CBC data. Current Interpretive Data was last revised on 2017. Lymphocyte pct 30.7 % [facility] Comment: Interpretive Data Percent cell count reference ranges are not reported, since discordance with absolute values may lead to misinterpretation of CBC data. Current Interpretive Data was last revised on 2017. Monocyte pct 8.0 % [facility] Comment: Interpretive Data Percent cell count reference ranges are not reported, since discordance with absolute values may lead to misinterpretation of CBC data. Current Interpretive Data was last revised on 2017. Eosinophil pct 2.3 % [facility] Comment: Interpretive Data Percent cell count reference ranges are not reported, since discordance with absolute values may lead to misinterpretation of CBC data. Current Interpretive Data was last revised on 2017. Basophil pct 0.6 % [facility] Comment: Interpretive Data Percent cell count reference ranges are not reported, since discordance with absolute values may lead to misinterpretation of CBC data. Current Interpretive Data was last revised on 2017. Blood 07/14/2024 2:40 PM PINION POLISHER 07/14/2024 3:57 PM PINION POLISHER us Notinfile Unknown LAB BLOOD ORDERABLES Final Res ult MANDY [address] [facility] Department [place] [address] * (ABNORMAL) CBC with auto differential (07/14/2024 2:40 PM PINION POLISHER) [facility] WBC 4.9 3.8 - 9.9 K/cumm Hgb 9.7(L) 11.9 - 15.5 g/dL [facility] Hct 30.0(L) 35.6 - 45.5 % [facility] Plt 164 150 - 400 K/cumm [facility] MPV 9.7 9.1 - 12.3 fL [facility] RBC 3.37(L) 3.90 - 5.20 M/cumm [facility] MCV 89.0 81.3 - 96.4 fL [facility] MCH 28.8 27.1 - 33.3 pg [facility] MCHC 32.3 32.3 - 35.7 g/dL [facility] RDW CV 15.9(H) 11.1 - 14.9 % [facility] RDW SD 51.9(H) 35.7 - 48.1 fL [facility] NRBC abs 0.00 0.00 - 0.01 K/cumm [facility] Blood 07/14/2024 2:40 PM PINION POLISHER 07/14/2024 3:57 PM PINION POLISHER us Notinfile Unknown LAB BLOOD ORDERABLES Final Res ult Performing Organization Address [facility] de Phone Number [address] [place] [address] * Phosphorus (07/14/2024 2:40 PM PINION POLISHER) [facility] Phosphorus, pl 4.3 2.3 - 4.5 mg/dL Blood 07/14/2024 2:40 PM PINION POLISHER 07/14/2024 3:57 PM PINION POLISHER us Notinfile Unknown LAB BLOOD ORDERABLES Final Res ult Performing Organization Address [facility] de Phone Number [address] [place] [address] * Magnesium (07/14/2024 2:40 PM PINION POLISHER) [facility] Magnesium 1.8 1.4 - 2.5 mg/dL Blood 07/14/2024 2:40 PM PINION POLISHER 07/14/2024 3:57 PM PINION POLISHER us Notinfile Unknown LAB BLOOD ORDERABLES Final Res ult [facility] [address] [facility] Department [place] [address] * (ABNORMAL) Comprehensive metabolic panel (07/14/2024 2:40 PM PINION POLISHER) Sodium 130(L) 135 - 145 mmol/L Potassium, pl 3.8 3.3 - 4.9 mmol/L [facility] Chloride 97 97 - 110 mmol/L [facility] CO2 21(L) 22 - 32 mmol/L [facility] Anion gap 12 2 - 15 mmol/L [facility] BUN 11 6 - 25 mg/dL [facility] Creatinine 0.90 0.60 - 1.10 mg/dL [facility] Glucose 111 70 - 199 mg/dL [facility] Comment: Interpretive Data Fasting glucose >/= 126 mg/dl is diagnostic for diabetes. Fasting is defined as no caloric intake for at least 8 hours. Fasting glucose between 100 mg/dl to 125 mg/dl is diagnostic of prediabetes. In a patient with classic symptoms of hyperglycemia or hyperglycemic crisis, a random glucose >/= 200 mg/dl is diagnostic for diabetes. In the absence of unequivocal hyperglycemia, results should be confirmed by repeat testing. The classification and Diagnosis of Diabetes Diabetes Care 2021; 46: S19-S40. Current interpretive data was last revised 2022. Calcium 9.1 8.5 - 10.3 mg/dL [facility] Bilirubin, total 0.5 0.1 - 1.2 mg/dL [facility] Protein, pl 7.4 6.5 - 8.5 g/dL [facility] Albumin 4.0 3.5 - 5.0 g/dL [facility] Alk phos 134(H) 40 - 130 Units/L [facility] ALT 20 7 - 45 Units/L [facility] AST 29 10 - 45 Units/L [facility] Blood 07/14/2024 2:40 PM PINION POLISHER 07/14/2024 3:57 PM PINION POLISHER us Notinfile Unknown LAB BLOOD ORDERABLES Final Res ult Performing Organization Address City/[facility] Co de Phone Number MANDY [address] [place] [address] * eGFR (07/08/2024 1:45 PM PINION POLISHER) eGFR 82 >=60 mL/min/1. 73 m2 Comment: Interpretive Data Reference Interval Normal >/= 90 mL/min/1.73m2 Mildly decreased* 60 - 89 mL/min/1.73m2 Mildly to moderately decreased 45 - 59 mL/min/1.73m2 Moderately to severely decreased 30 - 44 mL/min/1.73m2 Severely decreased 15 - 29 mL/min/1.73m2 Kidney Failure < 15 mL/min/1.73m2 *Relative to young adult level Estimated glomerular filtration rate is determined by the 2020 CKD-EPI equation recommended by the National Kidney Foundation (A Unifying Approach to GFR Estimation: Recommendations of the NKF-ASK Task Force on Reassessing the Inclusion of Race in Diagnosing Kidney Disease, JASN 2020). The CKD-EPI equation should not be used for patients with unstable renal function and has not been validated in children and those over 70. Current interpretive data was last reviewed 2021. Blood 07/08/2024 1:45 PM PINION POLISHER 07/08/2024 2:35 PM PINION POLISHER us Notinfile Unknown LAB BLOOD ORDERABLES Final Res ult Performing Organization Address City/[facility] Co de Phone Number MANDY [address] [place] [address] * Phosphorus (07/08/2024 1:45 PM PINION POLISHER) Pathologist [facility] Phosphorus, pl 3.8 2.3 - 4.5 mg/dL Blood 07/08/2024 1:45 PM PINION POLISHER 07/08/2024 2:35 PM PINION POLISHER us Notinfile Unknown LAB BLOOD ORDERABLES Final Res ult Performing Organization Address City/[facility]/ZIP Co de Phone Number [address] [address] * Magnesium (07/08/2024 1:45 PM PINION POLISHER) [facility] Magnesium 2.2 1.4 - 2.5 mg/dL Blood 07/08/2024 1:45 PM PINION POLISHER 07/08/2024 2:35 PM PINION POLISHER us Notinfile Unknown LAB BLOOD ORDERABLES Final Res ult Performing Organization Address [facility] Co de Phone Number [address] [address] * (ABNORMAL) Comprehensive metabolic panel (07/08/2024 1:45 PM PINION POLISHER) [facility] Sodium 130(L) 135 - 145 mmol/L Potassium, pl 4.1 3.3 - 4.9 mmol/L [facility] Chloride 96(L) 97 - 110 mmol/L [facility] CO2 22 22 - 32 mmol/L [facility] Anion gap 12 2 - 15 mmol/L [facility] BUN 16 6 - 25 mg/dL [facility] Creatinine 0.79 0.60 - 1.10 mg/dL [facility] Glucose 124 70 - 199 mg/dL [facility] Comment: Interpretive Data Fasting glucose >/= 126 mg/dl is diagnostic for diabetes. Fasting is defined as no caloric intake for at least 8 hours. Fasting glucose between 100 mg/dl to 125 mg/dl is diagnostic of prediabetes. In a patient with classic symptoms of hyperglycemia or hyperglycemic crisis, a random glucose >/= 200 mg/dl is diagnostic for diabetes. In the absence of unequivocal hyperglycemia, results should be confirmed by repeat testing. The classification and Diagnosis of Diabetes Diabetes Care 202; 46: S19-S40. Current interpretive data was last revised 2022. Calcium 9.1 8.5 - 10.3 mg/dL [facility] Bilirubin, total 0.4 0.1 - 1.2 mg/dL [facility] Protein, pl 7.4 6.5 - 8.5 g/dL [facility] Albumin 4.0 3.5 - 5.0 g/dL [facility] Alk phos 129 40 - 130 Units/L [facility] ALT 19 7 - 45 Units/L [facility] AST 26 10 - 45 Units/L [facility] Blood 07/08/2024 1:45 PM PINION POLISHER 07/08/2024 2:35 PM PINION POLISHER us Notinfile Unknown LAB BLOOD ORDERABLES Final Res ult Performing Organization Address City/[facility] Co de Phone Number MANDY [address] [employer] [place] [address] * (ABNORMAL) Cytomegalovirus (CMV) DNA PCR, quantitative Blood (06/30/2024 1:50 PM PINION POLISHER) [facility] CMV DNA Detected( A) [facility] Comment: Interpretive Data: The quantifiable range of this assay is 34 IUnits/mL to 10,000,000 IUnits/mL (1.53 log IUnits/mL to 7.0 log IUnits/mL). Testing was performed by the [facility] CMV Test ([employer] Testing performed at [facility]. Current interpretive data was last revised on 2021. Testing performed by: [facility], [address] [place]., [address] CMV DNA IU/mL <34 IUnits/mL [facility] Comment:Testing performed by : [facility], [address] [place]., [address] CMV DNA log IU/mL <1.53 log IUnits/mL [facility] Comment:Testing performed by : [facility], [address] [place]., [address] Blood 06/30/2024 1:50 PM PINION POLISHER 06/30/2024 8:05 PM PINION POLISHER us Notinfile Unknown LAB MICROBIOLOGY - GENERAL ORD ERABLES Final Result Performing Organization Address [facility]/ZIP Co de Phone Number MANDY [address] [place] [address] [facility] * Glucose, random (Outreach) (06/30/2024 1:50 PM PINION POLISHER) Pathologist [facility] Glucose 112 70 - 199 mg/dL Comment: Interpretive Data Fasting glucose >/= 126 mg/dl is diagnostic for diabetes. Fasting is defined as no caloric intake for at least 8 hours. Fasting glucose between 100 mg/dl to 125 mg/dl is diagnostic of prediabetes. In a patient with classic symptoms of hyperglycemia or hyperglycemic crisis, a random glucose >/= 200 mg/dl is diagnostic for diabetes. In the absence of unequivocal hyperglycemia, results should be confirmed by repeat testing. The classification and Diagnosis of Diabetes Diabetes Care 2021; 46: S19-S40. Current interpretive data was last revised 2022. Blood 06/30/2024 1:50 PM PINION POLISHER 06/30/2024 3:08 PM PINION POLISHER us Notinfile Unknown LAB BLOOD ORDERABLES Final Res ult MANDY [address] [place] [address] * eGFR (06/30/2024 1:50 PM PINION POLISHER) [facility] eGFR 68 >=60 mL/min/1. 73 m2 Comment: Interpretive Data Reference Interval Normal >/= 90 mL/min/1.73m2 Mildly decreased* 60 - 89 mL/min/1.73m2 Mildly to moderately decreased 45 - 59 mL/min/1.73m2 Moderately to severely decreased 30 - 44 mL/min/1.73m2 Severely decreased 15 - 29 mL/min/1.73m2 Kidney Failure < 15 mL/min/1.73m2 *Relative to young adult level Estimated glomerular filtration rate is determined by the 2020 CKD-EPI equation recommended by the National Kidney Foundation (A Unifying Approach to GFR Estimation: Recommendations of the NKF-ASK Task Force on Reassessing the Inclusion of Race in Diagnosing Kidney Disease, JASN 202). The CKD-EPI equation should not be used for patients with unstable renal function and has not been validated in children and those over 70. Current interpretive data was last reviewed 2021. Blood 06/30/2024 1:50 PM PINION POLISHER 06/30/2024 3:08 PM PINION POLISHER us Notinfile Unknown LAB BLOOD ORDERABLES Final Res ult MANDY [address] [address] * (ABNORMAL) Comprehensive metabolic panel, without glucose (Outreach) (06/30/2024 1:50 PM PINION POLISHER) Sodium 131(L) 135 - 145 mmol/L Potassium, pl 3.4 3.3 - 4.9 mmol/L [facility] Chloride 100 97 - 110 mmol/L [facility] CO2 20(L) 22 - 32 mmol/L [facility] Anion gap 11 2 - 15 mmol/L [facility] BUN 13 6 - 25 mg/dL [facility] Creatinine 0.93 0.60 - 1.10 mg/dL [facility] Calcium 8.6 8.5 - 10.3 mg/dL [facility] Protein, pl 7.2 6.5 - 8.5 g/dL [facility] Albumin 3.9 3.5 - 5.0 g/dL [facility] Bilirubin, total 0.5 0.1 - 1.2 mg/dL [facility] Alk phos 128 40 - 130 Units/L [facility] AST 30 10 - 45 Units/L [facility] ALT 21 7 - 45 Units/L [facility] Blood 06/30/2024 1:50 PM PINION POLISHER 06/30/2024 3:08 PM PINION POLISHER us Notinfile Unknown LAB BLOOD ORDERABLES Final Res ult Performing Organization Address City/[facility]/ZIP Co de Phone Number MANDY [address] [place] [address] * Phosphorus (06/30/2024 1:50 PM PINION POLISHER) Phosphorus, pl 3.9 2.3 - 4.5 mg/dL Blood 06/30/2024 1:50 PM PINION POLISHER 06/30/2024 3:08 PM PINION POLISHER us Notinfile Unknown LAB BLOOD ORDERABLES Final Res ult Performing Organization Address City/[facility] Co de Phone Number [id number] [address] * Magnesium (06/30/2024 1:50 PM PINION POLISHER) Pathologist [facility] Magnesium 1.8 1.4 - 2.5 mg/dL Blood 06/30/2024 1:50 PM PINION POLISHER 06/30/2024 3:08 PM PINION POLISHER Notinfile Unknown LAB BLOOD ORDERABLES Final Res ult Performing Organization Address [facility] de Phone Number [address] [address] * (ABNORMAL) Cytomegalovirus (CMV) DNA PCR, quantitative Blood (06/23/2024 2:20 PM PINION POLISHER) [facility] CMV DNA Detected( A) [facility] Comment: Interpretive Data: The quantifiable range of this assay is 34 IUnits/mL to 10,000,000 IUnits/mL (1.53 log IUnits/mL to 7.0 log IUnits/mL). Testing was performed by the [facility] CMV Test ([facility] [employer] Testing performed at [facility]. Current interpretive data was last revised on 2021. Testing performed by: [facility], [address] [place]., [address] CMV DNA IU/mL <34 IUnits/mL MANDY Comment:Testing performed by : [facility], [address] [place]., [address] CMV DNA log IU/mL <1.53 log IUnits/mL MANDY Comment:Testing performed by : [facility], [address] [place]., [address] Blood 06/23/2024 2:20 PM PINION POLISHER 06/23/2024 5:32 PM PINION POLISHER Notinfile Unknown LAB MICROBIOLOGY - GENERAL ORD ERABLES Final Result Performing Organization Address City/[facility]/ZIP Co de Phone Number MANDY [address] [place] [address] [facility] * eGFR (06/23/2024 2:20 PM PINION POLISHER) Pathologist [facility] eGFR 86 >=60 mL/min/1. 73 m2 Comment: Interpretive Data Reference Interval Normal >/= 90 mL/min/1.73m2 Mildly decreased* 60 - 89 mL/min/1.73m2 Mildly to moderately decreased 45 - 59 mL/min/1.73m2 Moderately to severely decreased 30 - 44 mL/min/1.73m2 Severely decreased 15 - 29 mL/min/1.73m2 Kidney Failure < 15 mL/min/1.73m2 *Relative to young adult level Estimated glomerular filtration rate is determined by the 2020 CKD-EPI equation recommended by the National Kidney Foundation (A Unifying Approach to GFR Estimation: Recommendations of the NKF-ASK Task Force on Reassessing the Inclusion of Race in Diagnosing Kidney Disease, JASN 2020). The CKD-EPI equation should not be used for patients with unstable renal function and has not been validated in children and those over 70. Current interpretive data was last reviewed 2021. Blood 06/23/2024 2:20 PM PINION POLISHER 06/23/2024 3:49 PM [employer]ISHER us Notinfile Unknown LAB BLOOD ORDERABLES Final Res ult MANDY [address] [place] [address] * Differential, auto (06/23/2024 2:20 PM PINION POLISHER) Pathologist [facility] Neutrophil abs 2.2 1.5 - 6.5 K/cumm Imm gran abs 0.0 0.0 - 0.1 K/cumm [facility] Lymphocyte abs 1.8 0.8 - 3.3 K/cumm [facility] Monocyte abs 0.3 0.2 - 0.8 K/cumm [facility] Eosinophil abs 0.1 0.0 - 0.5 K/cumm [facility] Basophil abs 0.0 0.0 - 0.1 K/cumm [facility] Neutrophil pct 49.2 % [facility] Comment: Interpretive Data Percent cell count reference ranges are not reported, since discordance with absolute values may lead to misinterpretation of CBC data. Current Interpretive Data was last revised on 2017. Imm gran pct 0.5 % [facility] Comment: Interpretive Data Percent cell count reference ranges are not reported, since discordance with absolute values may lead to misinterpretation of CBC data. Current Interpretive Data was last revised on 2017. Lymphocyte pct 41.8 % [facility] Comment: Interpretive Data Percent cell count reference ranges are not reported, since discordance with absolute values may lead to misinterpretation of CBC data. Current Interpretive Data was last revised on 2017. Monocyte pct 6.6 % [facility] Comment: Interpretive Data Percent cell count reference ranges are not reported, since discordance with absolute values may lead to misinterpretation of CBC data. Current Interpretive Data was last revised on 2017. Eosinophil pct 1.4 % [facility] Comment: Interpretive Data Percent cell count reference ranges are not reported, since discordance with absolute values may lead to misinterpretation of CBC data. Current Interpretive Data was last revised on 2017. Basophil pct 0.5 % [facility] Comment: Interpretive Data Percent cell count reference ranges are not reported, since discordance with absolute values may lead to misinterpretation of CBC data. Current Interpretive Data was last revised on 2017. Blood 06/23/2024 2:20 PM PINION POLISHER 06/23/2024 3:49 PM PINION POLISHER us Notinfile Unknown LAB BLOOD ORDERABLES Final Res ult MANDY [facility] [address] [facility] Department [place] [address] * (ABNORMAL) CBC with auto differential (06/23/2024 2:20 PM PINION POLISHER) [facility] WBC 4.4 3.8 - 9.9 K/cumm Hgb 9.2(L) 11.9 - 15.5 g/dL [facility] Hct 28.4(L) 35.6 - 45.5 % [facility] Plt 158 150 - 400 K/cumm [facility] MPV 10.1 9.1 - 12.3 fL [facility] RBC 3.29(L) 3.90 - 5.20 M/cumm [facility] MCV 86.3 81.3 - 96.4 fL [facility] MCH 28.0 27.1 - 33.3 pg [facility] MCHC 32.4 32.3 - 35.7 g/dL [facility] RDW CV 15.5(H) 11.1 - 14.9 % [facility] RDW SD 48.5(H) 35.7 - 48.1 fL [facility] NRBC abs 0.00 0.00 - 0.01 K/cumm [facility] Blood 06/23/2024 2:20 PM PINION POLISHER 06/23/2024 3:49 PM PINION POLISHER us Notinfile Unknown LAB BLOOD ORDERABLES Final Res ult Performing Organization Address City/[facility] Co de Phone Number MANDY [address] [place] [address] * Phosphorus (06/23/2024 2:20 PM PINION POLISHER) [facility] Phosphorus, pl 4.0 2.3 - 4.5 mg/dL Blood 06/23/2024 2:20 PM PINION POLISHER 06/23/2024 3:49 PM PINION POLISHER us Notinfile Unknown LAB BLOOD ORDERABLES Final Res ult Performing Organization Address City/[facility] Co de Phone Number MANDY [address] [place] [address] * Magnesium (06/23/2024 2:20 PM PINION POLISHER) [facility] Magnesium 1.9 1.4 - 2.5 mg/dL Blood 06/23/2024 2:20 PM PINION POLISHER 06/23/2024 3:49 PM PINION POLISHER us Notinfile Unknown LAB BLOOD ORDERABLES Final Res ult MANDY [address] [facility] Department [place] [address] * (ABNORMAL) Comprehensive metabolic panel (06/23/2024 2:20 PM PINION POLISHER) Sodium 133(L) 135 - 145 mmol/L Potassium, pl 3.9 3.3 - 4.9 mmol/L [facility] Chloride 102 97 - 110 mmol/L [facility] CO2 22 22 - 32 mmol/L [facility] Anion gap 9 2 - 15 mmol/L [facility] BUN 11 6 - 25 mg/dL [facility] Creatinine 0.76 0.60 - 1.10 mg/dL [facility] Glucose 95 70 - 199 mg/dL [facility] Comment: Interpretive Data Fasting glucose >/= 126 mg/dl is diagnostic for diabetes. Fasting is defined as no caloric intake for at least 8 hours. Fasting glucose between 100 mg/dl to 125 mg/dl is diagnostic of prediabetes. In a patient with classic symptoms of hyperglycemia or hyperglycemic crisis, a random glucose >/= 200 mg/dl is diagnostic for diabetes. In the absence of unequivocal hyperglycemia, results should be confirmed by repeat testing. The classification and Diagnosis of Diabetes Diabetes Care 2021; 46: S19-S40. Current interpretive data was last revised 2022. Calcium 8.4(L) 8.5 - 10.3 mg/dL [facility] Bilirubin, total 0.4 0.1 - 1.2 mg/dL [facility] Protein, pl 6.9 6.5 - 8.5 g/dL [facility] Albumin 3.8 3.5 - 5.0 g/dL [facility] Alk phos 113 40 - 130 Units/L [facility] ALT 21 7 - 45 Units/L [facility] AST 33 10 - 45 Units/L [facility] Blood 06/23/2024 2:20 PM PINION POLISHER 06/23/2024 3:49 PM PINION POLISHER Notinfile Unknown LAB BLOOD ORDERABLES Final Res ult Performing Organization Address [facility] Co de Phone Number MANDY [address] Department [place] [address] * C. difficile testing Stool (06/17/2024 4:20 PM PINION POLISHER) Pathologist [facility] Result Negative Negative Toxin Result Negative Negative [facility] C. diff result Negative, free toxin Negative, free toxin [facility] C. diff interp Negative for toxigenic Clostridioides (Clostridium) difficile. Analysis was performed using a glutamate dehydrogenase antigen detection assay combined with a C. difficile toxin detection assay. [facility] Stool 06/17/2024 4:20 PM PINION POLISHER 06/17/2024 4:42 PM PINION POLISHER Result [facility] Beata Ambrosio MD LAB MICROBIOLOGY - GENERAL OR DERABLES Final Result Performing Organization Address [facility] de Phone Number [facility] Department [place] [address] * (ABNORMAL) Calprotectin, fecal (06/17/2024 4:20 PM PINION POLISHER) [facility] Calprotectin, fecal 53.8(H) <50.0 (Normal) mcg/g [facility] Comment: Interpretation: Borderline (50.0-120 mcg/g) Test Performed by: [facility] [address] [place] [address] Cathode Washer: Jimena Catalan Ph.D.; CLIA# [id number] Stool 06/17/2024 4:20 PM PINION POLISHER 06/17/2024 5:02 PM PINION POLISHER Beata Ambrosio MD LAB BODY FLUIDS AND STOOLS OR DERABLES Final Result Performing Organization Address [facility] Co de Phone Number [facility] [place] [address] [facility] * (ABNORMAL) Urinalysis reflex to microscopic and culture Urine (06/17/2024 12:28 PM PINION POLISHER) Color, ur Yellow Yellow Clarity, ur Clear Clear [facility] Specific gravity, ur 1.018 1.003 - 1.030 [facility] pH, urine 5.5 [facility] Comment: Interpretive Data U rine pH is affected by diet, medications, systemic acid-base disturbances, and renal tubular function. pH may affect urinary stone formation. For example, urine pH below 6.0 may help reduce the tendency for calcium phosphate stones and pH greater than 6.0 may reduce the tendency for uric acid stone formation. Source: [facility] [employer] Current Interpretive Data was last revised on 2017 Protein, ur ql Trace Negative [facility] Glucose, ur ql Negative Negative [facility] Ketones, ur Negative Negative [facility] Bilirubin, ur Negative Negative [facility] Blood, ur Negative Negative [facility] Urobilinogen, ur <2.0 <2.0 mg/dL [facility] Nitrite, ur Negative Negative [facility] Leukocyte esterase, ur Trace(A) Negative [facility] UA reflex comment Reflex to microscopic UA will be performed. [facility] Urine 06/17/2024 12:2 8 PM PINION POLISHER 06/17/2024 1:16 PM PINION POLISHER Beata Ambrosio MD LAB MICROBIOLOGY - GENERAL OR DERABLES Final Result [facility] Department [place] [address] * (ABNORMAL) Urinalysis, microscopic only (06/17/2024 12:28 PM PINION POLISHER) WBC, ur 0-5 0 - 5 /HPF RBC, ur 0-2 0 - 2 /HPF [facility] Epithelial cells, squamous, ur 1-5 0 - 5 /HPF [facility] Epithelial cells, renal, ur 1-5(A) 0 - 0 /HPF [facility] Bacteria, ur Trace(A) [facility] Mucous, ur Present(A) [facility] Hyaline casts, ur 6-10 0 - 10 /LPF [facility] Culture Reflex Comment Reflex conditions for urine culture (WBC >10) not met. [facility] Urine 06/17/2024 12:2 8 PM PINION POLISHER 06/17/2024 1:16 PM PINION POLISHER Beata Ambrosio MD LAB URINE ORDERABLES Final Re sult Performing Organization Address [facility] Co de Phone Number [facility] Department [place] [address] * (ABNORMAL) Cytomegalovirus (CMV) DNA PCR, quantitative Blood (06/16/2024 1:30 PM PINION POLISHER) CMV DNA Detected( A) [facility] Comment: Interpretive Data: The quantifiable range of this assay is 34 IUnits/mL to 10,000,000 IUnits/mL (1.53 log IUnits/mL to 7.0 log IUnits/mL). Testing was performed by the [employer] CMV Test ([employer] Testing performed at [facility]. Current interpretive data was last revised on 2021. Testing performed by: [facility], [address] [place]., [address] CMV DNA IU/mL <34 IUnits/mL MANDY Comment:Testing performed by : [facility], [address] [place]., [address] CMV DNA log IU/mL <1.53 log IUnits/mL MANDY Comment:Testing performed by : [facility], [address] [place]., [address] Blood 06/16/2024 1:30 PM PINION POLISHER 06/16/2024 7:32 PM PINION POLISHER us Luis Miguel Medina MD LAB MICROBIOLOGY - GENERAL O RDERABLES Final Result Performing Organization Address City/[facility]/ZIP Co de Phone Number MANDY [address] [facility] Department [place] [address] [facility] * eGFR (06/16/2024 1:30 PM PINION POLISHER) eGFR 71 >=60 mL/min/1. 73 m2 Comment: Interpretive Data Reference Interval Normal >/= 90 mL/min/1.73m2 Mildly decreased* 60 - 89 mL/min/1.73m2 Mildly to moderately decreased 45 - 59 mL/min/1.73m2 Moderately to severely decreased 30 - 44 mL/min/1.73m2 Severely decreased 15 - 29 mL/min/1.73m2 Kidney Failure < 15 mL/min/1.73m2 *Relative to young adult level Estimated glomerular filtration rate is determined by the 2020 CKD-EPI equation recommended by the National Kidney Foundation (A Unifying Approach to GFR Estimation: Recommendations of the NKF-ASK Task Force on Reassessing the Inclusion of Race in Diagnosing Kidney Disease, JASN 2020). The CKD-EPI equation should not be used for patients with unstable renal function and has not been validated in children and those over 70. Current interpretive data was last reviewed 2021. Blood 06/16/2024 1:30 PM PINION POLISHER 06/16/2024 4:56 PM PINION POLISHER Luis Miguel Medina MD LAB BLOOD ORDERABLES Final R esult Performing Organization Address [facility] Co de Phone Number [address] [place] [address] * Phosphorus (06/16/2024 1:30 PM PINION POLISHER) Pathologist [facility] Phosphorus, pl 3.9 2.3 - 4.5 mg/dL Blood 06/16/2024 1:30 PM PINION POLISHER 06/16/2024 4:56 PM PINION POLISHER Luis Miguel Medina MD LAB BLOOD ORDERABLES Final R esult Performing Organization Address [facility] Co de Phone Number [address] [place] [address] * Magnesium (06/16/2024 1:30 PM PINION POLISHER) Pathologist [facility] Magnesium 1.7 1.4 - 2.5 mg/dL Blood 06/16/2024 1:30 PM PINION POLISHER 06/16/2024 4:56 PM PINION POLISHER Luis Miguel Medina MD LAB BLOOD ORDERABLES Final R esult [facility] [address] [facility] Department [place] [address] * (ABNORMAL) Comprehensive metabolic panel (06/16/2024 1:30 PM PINION POLISHER) [facility] Sodium 135 135 - 145 mmol/L Potassium, pl 3.6 3.3 - 4.9 mmol/L [facility] Chloride 103 97 - 110 mmol/L [facility] CO2 20(L) 22 - 32 mmol/L [facility] Anion gap 12 2 - 15 mmol/L [facility] BUN 9 6 - 25 mg/dL [facility] Creatinine 0.89 0.60 - 1.10 mg/dL [facility] Glucose 118 70 - 199 mg/dL [facility] Comment: Interpretive Data Fasting glucose >/= 126 mg/dl is diagnostic for diabetes. Fasting is defined as no caloric intake for at least 8 hours. Fasting glucose between 100 mg/dl to 125 mg/dl is diagnostic of prediabetes. In a patient with classic symptoms of hyperglycemia or hyperglycemic crisis, a random glucose >/= 200 mg/dl is diagnostic for diabetes. In the absence of unequivocal hyperglycemia, results should be confirmed by repeat testing. The classification and Diagnosis of Diabetes Diabetes Care 2021; 46: S19-S40. Current interpretive data was last revised 2022. Calcium 8.7 8.5 - 10.3 mg/dL [facility] Bilirubin, total 0.5 0.1 - 1.2 mg/dL [facility] Protein, pl 7.2 6.5 - 8.5 g/dL [facility] Albumin 4.0 3.5 - 5.0 g/dL [facility] Alk phos 118 40 - 130 Units/L [facility] ALT 16 7 - 45 Units/L [facility] AST 28 10 - 45 Units/L [facility] Blood 06/16/2024 1:30 PM PINION POLISHER 06/16/2024 4:56 PM PINION POLISHER Luis Miguel Medina MD LAB BLOOD ORDERABLES Final R esult Performing Organization Address City/[facility]/ZIP Co de Phone Number MANDY [address] [place] [address] * (ABNORMAL) Cytomegalovirus (CMV) DNA PCR, quantitative Blood (06/09/2024 2:00 PM PINION POLISHER) [facility] CMV DNA Detected( A) [facility] Comment: Interpretive Data: The quantifiable range of this assay is 34 IUnits/mL to 10,000,000 IUnits/mL (1.53 log IUnits/mL to 7.0 log IUnits/mL). Testing was performed by the [employer] CMV Test ([employer] Testing performed at [facility]. Current interpretive data was last revised on 2021. Testing performed by: [facility], [address] [place]., [address] CMV DNA IU/mL <34 IUnits/mL [facility] Comment:Testing performed by : [facility], [address] [facility], [address] CMV DNA log IU/mL <1.53 log IUnits/mL MANDY Comment:Testing performed by : [facility], [address] [place]., [address] Blood 06/09/2024 2:00 PM PINION POLISHER 06/09/2024 7:40 PM PINION POLISHER us Notinfile Unknown LAB MICROBIOLOGY - GENERAL ORD ERABLES Final Result MANDY [address] [place] [address] [facility] * eGFR (06/09/2024 2:00 PM PINION POLISHER) [facility] eGFR 82 >=60 mL/min/1. 73 m2 Comment: Interpretive Data Reference Interval Normal >/= 90 mL/min/1.73m2 Mildly decreased* 60 - 89 mL/min/1.73m2 Mildly to moderately decreased 45 - 59 mL/min/1.73m2 Moderately to severely decreased 30 - 44 mL/min/1.73m2 Severely decreased 15 - 29 mL/min/1.73m2 Kidney Failure < 15 mL/min/1.73m2 *Relative to young adult level Estimated glomerular filtration rate is determined by the 2020 CKD-EPI equation recommended by the National Kidney Foundation (A Unifying Approach to GFR Estimation: Recommendations of the NKF-ASK Task Force on Reassessing the Inclusion of Race in Diagnosing Kidney Disease, JASN 2020). The CKD-EPI equation should not be used for patients with unstable renal function and has not been validated in children and those over 70. Current interpretive data was last reviewed 2021. Blood 06/09/2024 2:00 PM PINION POLISHER 06/09/2024 3:58 PM PINION POLISHER us Notinfile Unknown LAB BLOOD ORDERABLES Final Res ult [facility] [address] [facility] Department [place] [address] * Differential, auto (06/09/2024 2:00 PM PINION POLISHER) Pathologist [facility] Neutrophil abs 2.1 1.5 - 6.5 K/cumm Imm gran abs 0.0 0.0 - 0.1 K/cumm [facility] Lymphocyte abs 1.6 0.8 - 3.3 K/cumm [facility] Monocyte abs 0.4 0.2 - 0.8 K/cumm [facility] Eosinophil abs 0.1 0.0 - 0.5 K/cumm [facility] Basophil abs 0.0 0.0 - 0.1 K/cumm [facility] Neutrophil pct 50.5 % [facility] Comment: Interpretive Data Percent cell count reference ranges are not reported, since discordance with absolute values may lead to misinterpretation of CBC data. Current Interpretive Data was last revised on 2017. Imm gran pct 0.2 % [facility] Comment: Interpretive Data Percent cell count reference ranges are not reported, since discordance with absolute values may lead to misinterpretation of CBC data. Current Interpretive Data was last revised on 2017. Lymphocyte pct 37.7 % [facility] Comment: Interpretive Data Percent cell count reference ranges are not reported, since discordance with absolute values may lead to misinterpretation of CBC data. Current Interpretive Data was last revised on 2017. Monocyte pct 8.7 % [facility] Comment: Interpretive Data Percent cell count reference ranges are not reported, since discordance with absolute values may lead to misinterpretation of CBC data. Current Interpretive Data was last revised on 2017. Eosinophil pct 2.4 % [facility] Comment: Interpretive Data Percent cell count reference ranges are not reported, since discordance with absolute values may lead to misinterpretation of CBC data. Current Interpretive Data was last revised on 2017. Basophil pct 0.5 % [facility] Comment: Interpretive Data Percent cell count reference ranges are not reported, since discordance with absolute values may lead to misinterpretation of CBC data. Current Interpretive Data was last revised on 2017. Blood 06/09/2024 2:00 PM PINION POLISHER 06/09/2024 3:58 PM PINION POLISHER us Notinfile Unknown LAB BLOOD ORDERABLES Final Res ult [facility] [address] [facility] Department [place] [address] * (ABNORMAL) CBC with auto differential (06/09/2024 2:00 PM PINION POLISHER) WBC 4.2 3.8 - 9.9 K/cumm Hgb 9.1(L) 11.9 - 15.5 g/dL [facility] Hct 28.0(L) 35.6 - 45.5 % [facility] Plt 153 150 - 400 K/cumm [facility] MPV 10.0 9.1 - 12.3 fL [facility] RBC 3.28(L) 3.90 - 5.20 M/cumm [facility] MCV 85.4 81.3 - 96.4 fL [facility] MCH 27.7 27.1 - 33.3 pg [facility] MCHC 32.5 32.3 - 35.7 g/dL [facility] RDW CV 14.6 11.1 - 14.9 % [facility] RDW SD 45.4 35.7 - 48.1 fL [facility] NRBC abs 0.00 0.00 - 0.01 K/cumm [facility] Blood 06/09/2024 2:00 PM PINION POLISHER 06/09/2024 3:58 PM PINION POLISHER us Notinfile Unknown LAB BLOOD ORDERABLES Final Res ult Performing Organization Address City/[facility] Co de Phone Number [address] [place] [address] * Phosphorus (06/09/2024 2:00 PM PINION POLISHER) Pathologist [facility] Phosphorus, pl 3.6 2.3 - 4.5 mg/dL Blood 06/09/2024 2:00 PM PINION POLISHER 06/09/2024 3:58 PM PINION POLISHER Notinfile Unknown LAB BLOOD ORDERABLES Final Res ult Performing Organization Address [facility] Co de Phone Number [address] [place] [address] * Magnesium (06/09/2024 2:00 PM PINION POLISHER) Pathologist [facility] Magnesium 1.7 1.4 - 2.5 mg/dL Blood 06/09/2024 2:00 PM PINION POLISHER 06/09/2024 3:58 PM PINION POLISHER Notinfile Unknown LAB BLOOD ORDERABLES Final Res ult Performing Organization Address [facility] Co de Phone Number [address] [place] [address] * (ABNORMAL) Comprehensive metabolic panel (06/09/2024 2:00 PM PINION POLISHER) Sodium 130(L) 135 - 145 mmol/L Potassium, pl 3.5 3.3 - 4.9 mmol/L [facility] Chloride 100 97 - 110 mmol/L [facility] CO2 21(L) 22 - 32 mmol/L [facility] Anion gap 9 2 - 15 mmol/L [facility] BUN 10 6 - 25 mg/dL [facility] Creatinine 0.79 0.60 - 1.10 mg/dL [facility] Glucose 115 70 - 199 mg/dL [facility] Comment: Interpretive Data Fasting glucose >/= 126 mg/dl is diagnostic for diabetes. Fasting is defined as no caloric intake for at least 8 hours. Fasting glucose between 100 mg/dl to 125 mg/dl is diagnostic of prediabetes. In a patient with classic symptoms of hyperglycemia or hyperglycemic crisis, a random glucose >/= 200 mg/dl is diagnostic for diabetes. In the absence of unequivocal hyperglycemia, results should be confirmed by repeat testing. The classification and Diagnosis of Diabetes Diabetes Care 2021; 46: S19-S40. Current interpretive data was last revised 2022. Calcium 8.4(L) 8.5 - 10.3 mg/dL [facility] Bilirubin, total 0.6 0.1 - 1.2 mg/dL [facility] Protein, pl 6.9 6.5 - 8.5 g/dL [facility] Albumin 3.8 3.5 - 5.0 g/dL [facility] Alk phos 102 40 - 130 Units/L [facility] ALT 20 7 - 45 Units/L [facility] AST 37 10 - 45 Units/L [facility] Blood 06/09/2024 2:00 PM PINION POLISHER 06/09/2024 3:58 PM PINION POLISHER us Notinfile Unknown LAB BLOOD ORDERABLES Final Res ult [facility] [address] [facility] Department [place] [address] * Colonoscopy (01/04/2024 12:25 PM CDT) Anatomical Region Laterality Modality Other Narrative Procedure Note Wang Slade MD - 01/04/2024 12:25 PM CDT ENDOSCOPY LAB Patient Name: Muriel Wade Procedure Date: 01/04/2024 12:25 PM Date of : 1960 Admit Type: Outpatient Age: 63 Gender: Female Attending MD: Wang Slade M.D. 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 On [facility] for past 3 months. Assessmentof disease activity prior to possible ostomytakedown. Providers: Wang Slade M.D. Referring MD: Beata Ambrosio M.D. Medicines: See the Anesthesia note for documentation of the administered medications Complications: Diffuse mild-moderate oozing and friability in transverse/ascending colon on withdrawal of scope, likely related to barotrauma. Estimated Blood Loss: Estimated blood loss was minimal. Procedure: Pre-Anesthesia Assessment: - After reviewing the risks and benefits, thepatient was deemed in satisfactory condition to undergo the procedure. After obtaining informed consent, the endoscope was passed under direct vision. Throughout theprocedure, the patient's blood pressure, pulse, and oxygen saturations were monitored continuously. The [id number] was introduced through the anusand advanced to the terminal ileum. The procedure was performed without difficulty. The patient tolerated the procedure well. The quality of the bowel preparation was good. Findings: Rectal stricture noted on SWAPNIL, which was digitally dilated andpassable by PCF. Perianal exam otherwise notable for skin tag. Patient is status-post ileocolic resection with ileocolicanastomosis. Evidence of [id number] functional end-to-end ileocolic anastomosis, characterized by significant diffuse ulceration. The Simple Endoscopic Score for Crohn's Disease was determined basedon the endoscopic appearance of the mucosa in the following segments: - Ileum: Findings include large ulcers 0.5-2 cm in size, 10-30% ulcerated surfaces, 50-75% of surfaces affected and narrowing(s) that cannot be passed. Segment score: 9. - Right Colon: Findings include large ulcers 0.5 - 2 cm in size,10-30% ulcerated surfaces, 50-75% of surfaces affected and no narrowings. Segment score: 6. - Transverse Colon: Findings include no ulcers present, no ulcerated surfaces, less than 50% of surfaces affected and no narrowings.Segment score: 1. - Left Colon: Findings include no ulcers present, no ulceratedsurfaces, less than 50% of surfaces affected and no narrowings. Segment score:1. - Rectum: Findings include no ulcers present, no ulcerated surfaces,no affected surfaces and no narrowings. Segment score: 0. - Total SES-CD aggregate score: 17. Biopsies were taken with a cold forceps for histology. Vishal-terminal ileum characterized by ulceration and stricture just proximal to anastomosis, which was not passable by PCF. Diffuse mild-moderate oozing and friability in transverse/ascending colon on withdrawal of scope, likely related to barotrauma. Non-bleeding internal hemorrhoids were found. The hemorrhoids wereGrade I (internal hemorrhoids that do not prolapse). Impression: - Rectal stricture digitally dilated, after whichPCF was able to pass into rectum. Skin tag also notedon perianal exam. - Simple Endoscopic Score for Crohn's Disease: 17, mucosal inflammatory changes secondary to Crohn's disease, with ileitis and colitis. Biopsied. - Significant ulceration and impassable stricturein vihsal-terminal ileum just proximal to IC anastomosis. Biopsied. - IC anastomosis characterized by significantdiffuse ulceration. Biopsied. - Patchy erythema, friability, and congestion notedin ascending colon, descending colon, and sigmoidcolon. Biopsied. - Diffuse mild-moderate oozing and friability in transverse/ascending colon on withdrawal, likely related to barotrauma. - Non-bleeding internal hemorrhoids. Recommendation: - Discharge patient to home (ambulatory). - Resume previous diet. - Await pathology results. - Patient is just 3 months into [facility], so maystill have further response to this with more time onthis medication. Given the degree of inflammationpresent, she may benefit from a course of steroids, which I will defer to Dr. Ambrosio. - At this time, given significant inflammationpresent at IC anastomosis and in vishal-terminal ileum, would advise against ostomy takedown currently. - Follow-up with Dr. Ambrosio and Dr. Medina. - Contact Information: During normal business hours - [facility]: [phone]. After hours, evening, nights, weekends and holidays- Please call the hospital vacuum drum drier operator at and ask for the GI fellow lead generation representative. Electronically signed by Wang Slade MD Wang Slade M.D. 01/04/2024 12:55:52 PM Number of Addenda: 0 Note Initiated On: 01/04/2024 12:25 PM CC Letter to: Beata Ambrosio M.D., Luis Miguel Medina M.D. Wang Slade MD ENDOSCOPY PROCEDURES Final Resul t * Hepatitis C antibody (02/23/2023 11:47 AM CDT) Hep C Ab Nonreactive Nonreactive [facility] Comment:Antibodies to HCV no t detected. Does NOT exclude the possibility of recent exposure to HCV. Current interpretive data was last revised on 22 Blood 02/23/2023 11:4 7 AM CDT 02/23/2023 2:19 PM CDT Star Griffiths MD LAB MICROBIOLOGY - GENER AL ORDERABLES Final Result [facility] Department [place] [address] from Last 3 Months or Most Recently Relevant to Health Maintenance Insurance MEDICARE [facility] MEDICARE [place] [address] [place] [address] [place] [address] Advance Directives For more information, please contact: [phone] * Full Code (Latest Code Status on File) Date Activated Date Inactivated Comments 04/22/2024 12:41 PM 04/22/2024 6:49 PM * Full Code Date Activated Date Inactivated Comments 09/27/2023 2:49 AM 09/29/2023 6:15 PM * Full Code Date Activated Date Inactivated Comments 08/16/2023 4:17 AM 09/11/2023 6:24 PM * Full Code Date Activated Date Inactivated Comments 05/10/2023 8:14 PM 05/31/2023 4:47 PM * Full Code Date Activated Date Inactivated Comments 01/29/2023 9:03 AM 01/29/2023 4:25 PM Care Teams Brass Chaser Relationship Specialty Start Date End Date Sosa Flowers DO PCP - General Family Medicine 01/12/20 Luis Miguel Medina MD [address] [facility] [id number] [place] [address] Surgeon Colon and Rectal Surgery 02/21/23 Beata Ambrosio MD [address] [place] [address] Referring Physician Gastroenterology 02/26/23 Star Griffiths MD [address] [facility] [place] [address] Consulting Physician Gastroenterology 02/27/23 Kingsley Ovalles MD [address] [facility] [place] [address] Consulting Physician Gastroenterology 02/27/23 Lizeth Salazar MD [address] [facility] [place] [address] Consulting Physician Infectious Diseases 07/12/23
--- OUTSIDE RECORDS SUMMARY | 2024-09-04 16:12 | XMS_ITS | Encounter Summary ---
Author Organization [facility] Address [address] [place] [address] Phone Care Team Providers Care Interactive Art Director Name Role Phone Sosa Flowers DO Primary Care Provider [phone] Luis Miguel Medina MD Unavailable [phone] Beata Ambrosio MD Unavailable [phone] Star Griffiths MD Unavailable [phone] Kingsley Ovalles MD Unavailable Nory JacquesW Unavailable [phone] Andreia Kidd Unavailable Unavailable Lizeth Salazar MD Unavailable [phone] Sangeeta Cruz RN Unavailable [phone] Encounter Details Date Type Department Care Team (Late st Contact Info) Description 09/27/2020 Orders Only [facility] Scanning, Provider Social History Tobacco Use Types Packs/Day Years Used Date Smoking Tobacco: Former Smokeless Tobacco: Never Comments:Quit 1993 Alcohol Use Standard Drinks/Week Comments No 0 (1 standard drink = 0.6 oz pur e alcohol) Comments No Sex and Gender Information Value Date Recorded Sex Assigned at Not on file Legal Sex Female 12:20 AM PELLETIZER Gender Identity Female 04/17/2021 10:27 AM CDT Sexual Orientation Straight 04/17/2021 10 :27 AM CDT documented as of this encounter Plan of Treatment Not on file documented as of this encounter Procedures Procedure Name Priority Date/Time Associated Diagnosis Comments SCAN - RADIOLOGY/IMAGING 09/27/2020 documented in this encounter Results * SCAN - RADIOLOGY/IMAGING (09/27/2020) Anatomical Region Laterality Modality Other us Provider Scanning Final Result documented in this encounter Visit Diagnoses Not on filedocumented in this encounter Additional Health Concerns Infection Onset Date Last Indicated Resolved Time Diarrhea 08/16/2023 08/18/2023 08/22/2023 9:17 AM PELLETIZER Exposure, Contact Comment:Patient exposed to C. Auris patient on 09/27/2023. Please contact infection prevention for instructions on obtaining surveillance cultures. 09/28/2023 09/28/2023 10/26/2023 3:05 AM C DT C. difficile suspected 06/13/2024 06/17/202406/14 3:05 AM PELLETIZER C. difficile suspected 06/17/2024 06/17/202406/17 6:54 PM PELLETIZER documented as of this encounter Care Teams Interactive Art Director Relationship Specialty Start Date End Date Sosa Flowers DO PCP - General Family Medicine 01/12/20 Luis Miguel Medina MD [address] [facility] [phone] [place] [address] Surgeon Colon and Rectal Surgery 02/21/23 Beata Ambrosio MD [address] [place] [address] Referring Physician Gastroenterology 02/26/23 Star Griffiths MD [address] [facility] [place] [address] Consulting Physician Gastroenterology 02/27/23 Kingsley Ovalles MD [address] [facility] [place] [address] Consulting Physician Gastroenterology 02/27/23 Nory Jacques, [facility] [address] [facility] ([facility] Mailstop [phone] [place] [address] [facility] Outpatient Through Freight Engineer 06/01/23 07/01/23 Andreia Kidd RMA Surgical Prehabilitation and Readiness (SPAR) Coordinator 07/09/23 08/20/23 Lizeth Salazar MD Consulting Physician Infectious Diseases 07/12/23 Sangeeta Cruz, RN [address] [facility] [address] [place] [address] SH[facility] Outpatient Through Freight Engineer 10/01/23 10/28/23 documented as of this encounter
--- OUTSIDE RECORDS SUMMARY | 2024-09-04 16:12 | XMS_ITS | Referral Summary ---
Author Organization [facility] Address [address] [place] [address] Care Team Providers Care Nurse Practitioner Adult Name Role Phone Sosa Flowers Primary Care Provider [phone] Luis Miguel Medina MD Unavailable Beata Ambrosio MD Unavailable Star Griffiths MD Unavailable Kingsley Ovalles MD Unavailable Lizeth Salazar MD Unavailable [phone] Encounters Date Type Department Care Team Description 09/01/2024 2:06 PM EMERGENCY CREW SUPERVISOR - 09/01/2024 11:59 PM EMERGENCY CREW SUPERVISOR Hospital Encounter [facility] [address] [place] [address] Discharge Disposition: Discharge to home or self care 09/01/2024 Documentation [facility] Gastroenterology [address] [facility] 12th [place] [address] [place] [address] Isela Bray RN Treatment Plan Update (08/28/2024 rov) 09/01/2024 11:00 AM EMERGENCY CREW SUPERVISOR Home Care Visit [facility] [address] [place] [address] Zackery Pickens RN SN HOME VISIT 08/28/2024 1:30 PM EMERGENCY CREW SUPERVISOR Office Visit [facility] Gastroenterology [address] [facility] 12th [place] [address] [place] [address] Lianne Hicks NP High risk medications (not anticoagulants) long-term use (Primary Dx); Severe malnutrition (CMS/HCC) (HCC); Crohn's disease of small and large intestines with complication (CMS/HCC) (HCC); Ileostomy in place (CMS/HCC) (HCC) 08/27/2024 Telephone [facility] Gastroenterology [address] [facility] [address] [place] [address] [place] [address] Isela Bray RN Med Management (Gattex appeal) 08/26/2024 4:00 PM EMERGENCY CREW SUPERVISOR - 08/26/2024 11:59 PM EMERGENCY CREW SUPERVISOR Hospital Encounter [facility] [address] [place] [address] Discharge Disposition: Discharge to home or self care 08/26/2024 8:15 AM EMERGENCY CREW SUPERVISOR Home Care Visit [address] [place] [address] Zackery Pickens, RN SN HOME VISIT 08/19/2024 2:30 PM EMERGENCY CREW SUPERVISOR - 08/19/2024 11:59 PM EMERGENCY CREW SUPERVISOR Hospital Encounter [facility] [address] [place] [address] Discharge Disposition: Discharge to home or self care 08/19/2024 12:30 PM EMERGENCY CREW SUPERVISOR Home Care Visit [address] [place] [address] Zackery Pickens, RN SN HOME VISIT 08/11/2024 3:29 PM EMERGENCY CREW SUPERVISOR - 08/11/2024 11:59 PM EMERGENCY CREW SUPERVISOR Hospital Encounter [facility] [address] [place] [address] Discharge Disposition: Discharge to home or self care 08/11/2024 Documentation [facility] [address] [place] [address] Ghada Urbina, HERMANN 08/11/2024 8:15 AM EMERGENCY CREW SUPERVISOR Home Care Visit [address] [place] [address] [address] [place] [address] Zackery Pickens, RN SN HOME VISIT 08/06/2024 Telephone [facility] Gastroenterology [facility] [address]th [place] [address] [place] [address] Rocio Costa Prior Auth (Gattex) 08/04/2024 3:37 PM EMERGENCY CREW SUPERVISOR - 08/04/2024 11:59 PM EMERGENCY CREW SUPERVISOR Hospital Encounter [facility] [address] [place] [address] Discharge Disposition: Discharge to home or self care 08/04/2024 10:45 AM EMERGENCY CREW SUPERVISOR Home Care Visit [address] [place] [address] [address] [place] [address] Zackery Pickens, RN SN HOME VISIT 07/29/2024 6:05 PM EMERGENCY CREW SUPERVISOR - 07/29/2024 11:59 PM EMERGENCY CREW SUPERVISOR Hospital Encounter [address] [address] Discharge Disposition: Discharge to home or self care 07/29/2024 1:00 PM EMERGENCY CREW SUPERVISOR Home Care Visit [place] [address] [address] [place] [address] Zackery Pickens, RN SN HOME VISIT 07/24/2024 Telephone [facility] Gastroenterology [address] [place] [address] 12th [place] [address] [place] [address] Isela Bray RN Prior Auth (rinvoq) 07/21/2024 1:44 PM EMERGENCY CREW SUPERVISOR - 07/21/2024 11:59 PM EMERGENCY CREW SUPERVISOR Hospital Encounter [facility] [address] [place] [address] Discharge Disposition: Discharge to home or self care 07/21/2024 9:30 AM EMERGENCY CREW SUPERVISOR Home Care Visit [address] [place] [address] Zackery Pickens, RN SN HOME VISIT 07/14/2024 3:28 PM EMERGENCY CREW SUPERVISOR - 07/14/2024 11:59 PM EMERGENCY CREW SUPERVISOR Hospital Encounter [facility] [address] [place] [address] Discharge Disposition: Discharge to home or self care 07/14/2024 10:30 AM EMERGENCY CREW SUPERVISOR Home Care Visit [address] [place] [address] [address] [place] [address] Zackery Pickens, RN SN HOME VISIT 07/08/2024 Plan of Care Documentation [address] [place] [address] [address] [place] [address] 07/08/2024 2:12 PM EMERGENCY CREW SUPERVISOR - 07/08/2024 11:59 PM EMERGENCY CREW SUPERVISOR Hospital Encounter [facility] [address] [place] [address] Discharge Disposition: Discharge to home or self care 07/08/2024 Documentation [facility] [address] [place] [address] Ghada Urbina, HERMANN 07/08/2024 2:00 PM EMERGENCY CREW SUPERVISOR Home Care Visit [place] [address] [address] [place] [address] Zackery Pickens, RN SN NON OASIS RECERTIFICATION 07/01/2024 Telephone [facility] Surgery [address] [place] [address] Medical Office Building [address] [place] [address] Ghada Arita, JOSÉ 06/30/2024 Telephone [facility] Infectious Diseases [address] [place] [address] [address] [place] [address] Destiny Medina BS 06/30/2024 2:31 PM EMERGENCY CREW SUPERVISOR - 06/30/2024 11:59 PM EMERGENCY CREW SUPERVISOR Hospital Encounter [facility] [address] [place] [address] Discharge Disposition: Discharge to home or self care 06/30/2024 10:45 AM EMERGENCY CREW SUPERVISOR Home Care Visit [place] [address] [address] [place] [address] Zackery Pickens, RN SN HOME VISIT 06/27/2024 1:30 PM EMERGENCY CREW SUPERVISOR Infusion [facility] [address] [place] [address] Iron deficiency anemia due to chronic blood loss (Primary Dx) 06/26/2024 Orders Only [facility] Surgery [address] [facility] [address] [place] [phone] Luis Miguel Medina MD On total parenteral nutrition (TPN) (Primary Dx); Crohn's disease of small and large intestines with complication (HCC) 06/23/2024 3:21 PM EMERGENCY CREW SUPERVISOR - 06/23/2024 11:59 PM EMERGENCY CREW SUPERVISOR Hospital Encounter [facility] [place] [address] Discharge Disposition: Discharge to home or self care 06/23/2024 9:30 AM EMERGENCY CREW SUPERVISOR Home Care Visit [place] [address] [address] [place] [address] Zackery Pickens RN SN HOME VISIT 06/18/2024 Orders Only [facility] [address] [place] [phone] Heidi Ascencio RN 06/17/2024 3:52 PM EMERGENCY CREW SUPERVISOR - 06/17/2024 11:59 PM EMERGENCY CREW SUPERVISOR Hospital Encounter [facility] [address] [place] [address] Change in bowel habits; Diarrhea, unspecified type; Crohn's disease of small and large intestines with complication (CMS/HCC) (HCC) Discharge Disposition: Discharge to home or self care 06/17/2024 12:24 PM EMERGENCY CREW SUPERVISOR - 06/17/2024 11:59 PM EMERGENCY CREW SUPERVISOR Hospital Encounter [facility] [address] [place] [phone] Discharge Disposition: Discharge to home or self care 06/17/2024 2:20 PM EMERGENCY CREW SUPERVISOR Lab [facility] [address] [place] [phone] Abdominal pain 06/17/2024 Documentation [facility] Gastroenterology [address] [facility] 12th [place] [address] [place] [address] Isela Bray RN Treatment Plan Update (06/17/2024 rov) 06/17/2024 11:00 AM EMERGENCY CREW SUPERVISOR Office Visit [facility] Gastroenterology [address] [facility] [address] [place] [address] [place] [address] Beata Ambrosio MD Abdominal pain (Primary Dx); High risk medications (not anticoagulants) long-term use; Crohn's disease of colon with complication (HCC); Ileostomy in place (CMS/HCC) (HCC); Small bowel stricture (HCC); Cytomegalovirus (CMV) viremia (CMS/HCC) (HCC) 06/16/2024 4:27 PM EMERGENCY CREW SUPERVISOR - 06/16/2024 11:59 PM EMERGENCY CREW SUPERVISOR Hospital Encounter [facility] [address] [place] [address] Discharge Disposition: Discharge to home or self care 06/16/2024 9:30 AM EMERGENCY CREW SUPERVISOR Home Care Visit [place] [address] [address] [place] [address] Zackery Pickens RN SN HOME VISIT 06/16/2024 9:15 AM EMERGENCY CREW SUPERVISOR Telemedicine [facility] Surgery [facility] [address] [place] [phone] Luis Miguel Medina MD Ileostomy in place (CMS/HCC) (HCC) (Primary Dx); On total parenteral nutrition (TPN); Crohn's disease of small and large intestines with complication (HCC) 06/13/2024 10:30 AM EMERGENCY CREW SUPERVISOR Infusion [facility] [address] [place] [phone] Iron deficiency anemia due to chronic blood loss (Primary Dx) 06/12/2024 Telephone [facility] Gastroenterology [address] [facility] [address] [place] [address] [place] [address] Genevieve Connelly crohn's flare-up 06/09/2024 3:20 PM EMERGENCY CREW SUPERVISOR - 06/09/2024 11:59 PM EMERGENCY CREW SUPERVISOR Hospital Encounter [facility] [address] [place] [address] Discharge Disposition: Discharge to home or self care 06/09/2024 Documentation [facility] [address] [place] [address] Ghada Urbina, HERMANN 06/09/2024 9:30 AM EMERGENCY CREW SUPERVISOR Home Care Visit [facility] [address] [place] [address] Zackery Pickens, JOSÉ SN HOME VISIT 06/06/2024 1:00 PM EMERGENCY CREW SUPERVISOR Infusion [facility] [address] [place] [phone] Iron deficiency anemia due to chronic blood loss (Primary Dx) 06/04/2024 Telephone [facility] [address] [place] [phone] Yue Villagran, JOSÉ 06/04/2024 Orders Only [facility] [address] [place] [phone] Yue Villagran, JOSÉ from Last 3 Months Allergies Active Allergy Reactions Criticality Noted Date Comments Celecoxib Swelling Medium 01/28/2019 Clindamycin Rash Medium 10/21/2021 Fentanyl Nausea And Vomiting Low 10/18/2022 Latex Rash Medium 08/20/2018 Sulfa (Sulfonamide Antibiotics) Rash Medium 07/24 Medications levothyroxine (SYNTHROID) 50 mcg tabletIndications :hypothyroidism Take 1 tablet (50 mcg total) by mouth lap maker before breakfast Active cyanocobalamin, vitamin B-12, 1,000 [...] catheter daily Active 0.9 % sodium chloride ([facility] sodium chloride 0.9%) injectionIndicati ons:Flushing Infuse 10 [...] (Rinvoq) 30 mg tablet extended release 24 hrIndications: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 hn's Disease Take 1 tablet (30 mg total) by mouth daily 30 tablet 2 01/10/2 025 Active dicyclomine (BENTYL) 10 mg capsule [...] 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 DVT (deep venous thrombosis) ([facility]) Assessment & Plan (09/28/2023 12:50 PM EMERGENCY CREW SUPERVISOR): Patient presenting with LUE swelling and redness [...] 09/27/2023 Assessment & Plan (09/27/2023 2:47 AM EMERGENCY CREW SUPERVISOR): - continue home synthroid Ileostomy in place ([facility]) 09/22/2023 Assessment & Plan (09/28/2023 12:48 PM EMERGENCY CREW SUPERVISOR): - RD c/s for TPN - continue [...] 08/07/2023 Assessment & Plan (08/07/2023 8:00 PM EMERGENCY CREW SUPERVISOR): Patient is followed by home health nurse, [...] 08/07/2023 Assessment & Plan (08/07/2023 8:04 PM EMERGENCY CREW SUPERVISOR): Crohn's disease: Was taken off steroids recently, stable disease, does not endorse significant symptom burden. GERD: Resume home BPI Hypothyroidism: Resume home levothyroxine NAFLD: Alk-phos 192, AST 52, around baseline, patient use cholestyramine p.r.n.. Crohn's disease ([facility]) 07/11/2023 Assessment & Plan (09/27/2023 2:46 AM EMERGENCY CREW SUPERVISOR): Ileal CD Dx 2019. Previously on entyvio [...] 05/25/2023 Assessment & Plan (05/29/2023 9:53 AM EMERGENCY CREW SUPERVISOR): No systemic manifestations, mucosal involvement, or worsening laboratory studies to suggest life-threatening process. Timing following start of ganciclovir suggests this as cause. Unfortunately, if ganciclovir indeed causative is likely to persist unless drug stopped, and alternative antiviral therapies appear inferior due to toxicities, cost, and/or potential development of resistance. Continue supportive cares as suggested by Dermatology. Assessment & Plan (05/28/2023 2:42 PM EMERGENCY CREW SUPERVISOR): No systemic manifestations, mucosal involvement, or worsening laboratory studies to suggest life-threatening process. Timing following start of ganciclovir suggests this as cause. Unfortunately, if ganciclovir indeed causative is likely to persist unless drug stopped, and alternative antiviral therapies appear inferior due to toxicities, cost, and/or potential development of resistance. Continue supportive cares as suggested by Dermatology. Assessment & Plan (05/27/2023 11:59 AM EMERGENCY CREW SUPERVISOR): No systemic manifestations, mucosal involvement, or worsening [...] 23 Assessment & Plan (09/27/2023 2:46 AM EMERGENCY CREW SUPERVISOR): No longer on treatment for this given CMV PCR detectable but not quantifiable during last admission per ID and GI discussion. Assessment & Plan (05/31/2023 9:26 AM EMERGENCY CREW SUPERVISOR): Diarrhea and cytopenia in context of Crohn [...] scheduled Assessment & Plan (05/28/2023 2:41 PM EMERGENCY CREW SUPERVISOR): Diarrhea and cytopenia in context of Crohn disease with recent pharmacologic immunosuppression strongly suggestive of CMV enteritis. Viral DNA PCR diminished following start of ganciclovir; unclear if repeat check will be needed prior to release from hospital. Plan to continue ganciclovir at discharge. See below. Assessment & Plan (05/27/2023 11:58 AM EMERGENCY CREW SUPERVISOR): Diarrhea and cytopenia in context of Crohn [...] of the small bowel. Bcx, HIV, cdiff, STONECUTTER HAND RVP all negative. CMV PCR + 05/16--5730. [...] 1 Assessment & Plan (05/30/2023 12:01 PM EMERGENCY CREW SUPERVISOR): On exam, pt with noticeable pitting edema of LLE. Doppler of left lower extremity on admit showed superficial vein thrombus. Superficial veins involved include the left great saphenous vein at mid and distal calf, area of pain. Repeat Doppler on 05/29 showed no DVT. -pt denies hx of DVT and PE -krishna yap Assessment & Plan (05/28/2023 2:43 PM EMERGENCY CREW SUPERVISOR): Doppler of left lower extremity showed superficial vein thrombus. Superficial veins involved include the left great saphenous vein at mid and distal calf, area of pain. Given increasing edema of limb and active inflammation would exclude extension into deep system prior to release from hospital; awaiting repeat venous duplex (ordered several days ago). Assessment & Plan (05/27/2023 12:00 PM EMERGENCY CREW SUPERVISOR): Doppler of left lower extremity showed superficial [...] 05/17/2023 Assessment & Plan (05/31/2023 9:27 AM EMERGENCY CREW SUPERVISOR): Of unclear cause; partially resolved. Platelet count improved, now WNL; WBC improving. (Rinvoq had been suspected earlier as causative, though thrombocytopenia not listed in Micromedex among adverse effects of Rinvoq.) May also have been CMV-mediated. Assessment & Plan (05/28/2023 2:42 PM EMERGENCY CREW SUPERVISOR): Of unclear cause; partially resolved. Platelet count improved; WBC fluctuating, though improvement likewise suggested. (Interestingly, Rinvoq had been suspected earlier as causative, though thrombocytopenia not listed in Micromedex among adverse effects of Rinvoq.) ?CMV-mediated? Assessment & Plan (05/27/2023 11:59 AM EMERGENCY CREW SUPERVISOR): Of unclear cause. Platelet count improved; WBC [...] 02/25/2023 Assessment & Plan (09/27/2023 2:47 AM EMERGENCY CREW SUPERVISOR): On TPN and ileostomy diet with eventual goal to wean off of TPN. - RD c/s Assessment & Plan (05/30/2023 12:03 PM EMERGENCY CREW SUPERVISOR): Nutrition following for TPN; appreciate recs thus far. Plan to continue at discharge to optimize prior to planned bowel resection. -per nutrition, pt should continue PO calcium, vit D, and B12 supplementation after d/c Assessment & Plan (05/28/2023 2:42 PM EMERGENCY CREW SUPERVISOR): Nutrition following for TPN; appreciate recs thus far. Plan to continue at discharge to optimize prior to planned bowel resection. Assessment & Plan (05/27/2023 11:59 AM EMERGENCY CREW SUPERVISOR): Nutrition following for TPN; appreciate recs thus [...] (10/26/2022): Added automatically from request for surgery [id number] Chronic parotitis 10/13/2021 NAFLD (nonalcoholic fatty liver [...] new or increased in extent, involving the mdb-vg-[id number] ileum. There is minimal narrowing with possible [...] surgery. Assessment & Plan (05/29/2023 12:56 PM EMERGENCY CREW SUPERVISOR): - On Rinvoq at home, currently being held. 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 - avoid aggressive antidiarrheal management due to underlying stricturing disease - Continue TPN for nutritional optimization for eventual resection per CRS. Assessment & Plan (05/28/2023 2:40 PM EMERGENCY CREW SUPERVISOR): - On Rinvoq at home, currently being held. 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 - avoid aggressive antidiarrheal management due to underlying stricturing disease Continue TPN for nutritional optimization for eventual resection per CRS. Assessment & Plan (05/27/2023 11:58 AM EMERGENCY CREW SUPERVISOR): - On Rinvoq at home, currently being [...] recs Assessment & Plan (09/13/2021 2:45 PM EMERGENCY CREW SUPERVISOR): - Will maximize IFX therapy by increasing it to 10 mg/kg q4 weeks - Will assess treatment response with colonoscopy/MRE in 4-6 months - Refer to Dermatology for rash - Refer to ENT for chronic sinusitis Gastroesophageal reflux disease without esophagi tis 08/20/2018 Assessment & Plan (09/27/2023 2:48 AM EMERGENCY CREW SUPERVISOR): - continue home PPI Resolved Problems Problem Noted Date Diagnosed Date Resolved Date Severe malnutrition (CMS/[facility]) 06/10/2023 06/10/2023 Hyponatremia 05/17/2023 08/02/2023 Assessment & Plan (05/29/2023 12:57 PM EMERGENCY CREW SUPERVISOR): Remains mild. Likely due to hypovolemia engendered by diarrhea from active Crohn disease plus/minus CMV enteritis. No additional management warranted. Assessment & Plan (05/28/2023 2:41 PM EMERGENCY CREW SUPERVISOR): Remains mild. Likely due to hypovolemia engendered by diarrhea from active Crohn disease plus/minus CMV enteritis. No additional management warranted. Assessment & Plan (05/27/2023 11:58 AM EMERGENCY CREW SUPERVISOR): Remains mild. Likely due to hypovolemia engendered [...] 05/29/2023 Assessment & Plan (05/29/2023 12:58 PM EMERGENCY CREW SUPERVISOR): CMV DNA +, 5k international units/ml, patient [...] scheduled Assessment & Plan (05/28/2023 2:41 PM EMERGENCY CREW SUPERVISOR): CMV DNA +, 5k international units/ml, patient [...] rash. Assessment & Plan (05/27/2023 11:58 AM EMERGENCY CREW SUPERVISOR): CMV DNA +, 5k international units/ml, patient [...] (01/11/2022): Added automatically from request for surgery [id number] Overweight (BMI 25.0-29.9) 10/18/2020 0 02/25/2023 Nausea and vomiting 08/21/2018 08/02/19 24 Overview (08/21/2018): Added automatically from request for surgery [id number] Diarrhea 04/23/2018 04/22/2023 Immunizations Name Administration Dates Next Due Influenza, Quadrivalent, Hig h Dose, Preservative Free, Intrr 05/13/2023 Influenza, Quadrivalent, Rec ombinant, Egg Free, Preservative Free, Intramuscular 05/01/2019 Influenza, Quadrivalent, Spl it, Preservative Free, Intramuscular 05/21/2018 Influenza, Trivalent, High D ose, Split, Preservative Free, Intramuscular 06/17/2024 Pneumococcal Conjugate PCV 13 01/01/2019 ZOSTER Recombinant 02/12/2019 Social History Tobacco Use Types Packs/Day Years Used Date Smoking Tobacco: Former Cigarettes 0.5 15 1 979 - 1994 Passive Smoke Exposure: Past Smokeless Tobacco: Never Tobacco Cessation:Counseling Given: Not Answered Comments:Quit 1993 Alcohol Use Standard Drinks/Week Comments No 0 (1 standard drink = 0.6 oz pur e alcohol) OASIS D0700: Social Isolation Answer Da te Recorded Frequency of experiencing loneliness or isolatio n Rarely 07/08/2024 [facility] Utilities Answer Date Recorded In the past 12 months has th e electric, gas, oil, or water company threatened to shut off services in your [...] often do you attend chur ch or mosque services? Never 10/02/2023 Do you belong to any clubs o r organizations such as latter-day groups, unions, fraternal or athletic groups, or [...] place to sleep or slept in a care home (including now)? No 10/02/2023 Personal Safety Answer Date Recorded Have you ever been in or are you currently in a harmful physical or emotional relationship or is someone making you feel afraid or unsafe? Denies 06/27/2024 Comments No Sex and Gender Information Value Date Recorded Sex Assigned at Not on file Legal Sex Female 12:20 AM EMERGENCY CREW SUPERVISOR Gender Identity Female 04/17/2021 10:27 AM CDT Sexual Orientation Straight 04/17/2021 10 :27 AM CDT Last Filed Vital Signs Vital Sign Reading Time Taken Comments Blood Pressure 128/72 09/01/2024 1:10 PM EMERGENCY CREW SUPERVISOR Pulse 90 09/01/2024 1:10 PM EMERGENCY CREW SUPERVISOR Temperature 37.2 C (99 F) 09/01/2024 1:10 PM EMERGENCY CREW SUPERVISOR Respiratory Rate 18 09/01/2024 1:10 PM EMERGENCY CREW SUPERVISOR Oxygen Saturation 98% 09/01/2024 1:10 PM EMERGENCY CREW SUPERVISOR Inhaled Oxygen Concentration - - Weight 53.5 kg (118 lb) 09/01/2024 1:10 PM EMERGENCY CREW SUPERVISOR Height 152.4 cm (5') 08/28/2024 1:21 PM EMERGENCY CREW SUPERVISOR Body Mass Index 23.05 08/28/2024 1:21 PM EMERGENCY CREW SUPERVISOR Plan of Treatment Not on file Medical Devices Implanted Type Area Job Compositor Device Identifier Shelf Expiration Date Model / Serial / Lot Picc Line Implanted:Qty: 1 Other - see comments Left: Arm Procedures Procedure Name Priority Date/Time Associated Diagnosis Comments EGFR STAT 09/01/2024 1:30 PM EMERGENCY CREW SUPERVISOR DIFFERENTIAL AUTO STAT 09/01/2024 1:3 0 PM EMERGENCY CREW SUPERVISOR PHOSPHORUS Routine 09/01/2024 1:30 PM EMERGENCY CREW SUPERVISOR MAGNESIUM STAT 09/01/2024 1:30 PM EMERGENCY CREW SUPERVISOR CBC WITH AUTO DIFFERENTIAL STAT 09/01/2024 1:30 PM EMERGENCY CREW SUPERVISOR COMPREHENSIVE METABOLIC PANEL STAT 09/01/2024 1:30 PM EMERGENCY CREW SUPERVISOR EGFR STAT 08/26/2024 1:00 PM EMERGENCY CREW SUPERVISOR PHOSPHORUS STAT 08/26/2024 1:00 PM EMERGENCY CREW SUPERVISOR MAGNESIUM STAT 08/26/2024 1:00 PM EMERGENCY CREW SUPERVISOR GLUCOSE, RANDOM (OUTREACH) STAT 08/26/2024 1:00 PM EMERGENCY CREW SUPERVISOR COMPREHENSIVE METABOLIC PANEL WITHOUT GLUCOSE (OUTREACH) STAT 08/26/2024 1:00 PM EMERGENCY CREW SUPERVISOR CYTOMEGALOVIRUS (CMV) DNA, QUANT GEN LAB STAT 08/26/2024 1:00 PM EMERGENCY CREW SUPERVISOR EGFR Routine 08/19/2024 1:30 PM EMERGENCY CREW SUPERVISOR DIFFERENTIAL AUTO Routine 08/19/2024 1:3 0 PM EMERGENCY CREW SUPERVISOR PHOSPHORUS Routine 08/19/2024 1:30 PM EMERGENCY CREW SUPERVISOR MAGNESIUM Routine 08/19/2024 1:30 PM EMERGENCY CREW SUPERVISOR CBC WITH AUTO DIFFERENTIAL Routine 08/19/2024 1:30 PM EMERGENCY CREW SUPERVISOR GLUCOSE, RANDOM (OUTREACH) Routine 08/19/2024 1:30 PM EMERGENCY CREW SUPERVISOR COMPREHENSIVE METABOLIC PANEL WITHOUT GLUCOSE (OUTREACH) Routine 08/19/2024 1:30 PM EMERGENCY CREW SUPERVISOR EGFR STAT 08/11/2024 2:40 PM EMERGENCY CREW SUPERVISOR PHOSPHORUS STAT 08/11/2024 2:40 PM EMERGENCY CREW SUPERVISOR MAGNESIUM STAT 08/11/2024 2:40 PM EMERGENCY CREW SUPERVISOR COMPREHENSIVE METABOLIC PANEL STAT 08/11/2024 2:40 PM EMERGENCY CREW SUPERVISOR CYTOMEGALOVIRUS (CMV) DNA, QUANT GEN LAB STAT 08/11/2024 2:40 PM EMERGENCY CREW SUPERVISOR EGFR Routine 08/04/2024 2:40 PM EMERGENCY CREW SUPERVISOR DIFFERENTIAL AUTO Routine 08/04/2024 2:4 0 PM EMERGENCY CREW SUPERVISOR PHOSPHORUS Routine 08/04/2024 2:40 PM EMERGENCY CREW SUPERVISOR MAGNESIUM Routine 08/04/2024 2:40 PM EMERGENCY CREW SUPERVISOR CBC WITH AUTO DIFFERENTIAL Routine 08/04/2024 2:40 PM EMERGENCY CREW SUPERVISOR GLUCOSE, RANDOM (OUTREACH) Routine 08/04/2024 2:40 PM EMERGENCY CREW SUPERVISOR COMPREHENSIVE METABOLIC PANEL WITHOUT GLUCOSE (OUTREACH) Routine 08/04/2024 2:40 PM EMERGENCY CREW SUPERVISOR EGFR Routine 07/29/2024 2:30 PM EMERGENCY CREW SUPERVISOR PHOSPHORUS Routine 07/29/2024 2:30 PM EMERGENCY CREW SUPERVISOR MAGNESIUM Routine 07/29/2024 2:30 PM EMERGENCY CREW SUPERVISOR GLUCOSE, RANDOM (OUTREACH) Routine 07/29/2024 2:30 PM EMERGENCY CREW SUPERVISOR COMPREHENSIVE METABOLIC PANEL WITHOUT GLUCOSE (OUTREACH) Routine 07/29/2024 2:30 PM EMERGENCY CREW SUPERVISOR CYTOMEGALOVIRUS (CMV) DNA, QUANT GEN LAB Routine 07/29/2024 2:30 PM EMERGENCY CREW SUPERVISOR EGFR STAT 07/21/2024 1:00 PM EMERGENCY CREW SUPERVISOR PHOSPHORUS STAT 07/21/2024 1:00 PM EMERGENCY CREW SUPERVISOR MAGNESIUM STAT 07/21/2024 1:00 PM EMERGENCY CREW SUPERVISOR COMPREHENSIVE METABOLIC PANEL STAT 07/21/2024 1:00 PM EMERGENCY CREW SUPERVISOR EGFR STAT 07/14/2024 2:40 PM EMERGENCY CREW SUPERVISOR DIFFERENTIAL AUTO STAT 07/14/2024 2:4 0 PM EMERGENCY CREW SUPERVISOR PHOSPHORUS STAT 07/14/2024 2:40 PM EMERGENCY CREW SUPERVISOR MAGNESIUM STAT 07/14/2024 2:40 PM EMERGENCY CREW SUPERVISOR CBC WITH AUTO DIFFERENTIAL STAT 07/14/2024 2:40 PM EMERGENCY CREW SUPERVISOR COMPREHENSIVE METABOLIC PANEL STAT 07/14/2024 2:40 PM EMERGENCY CREW SUPERVISOR CYTOMEGALOVIRUS (CMV) DNA, QUANT GEN LAB STAT 07/14/2024 2:40 PM EMERGENCY CREW SUPERVISOR EGFR STAT 07/08/2024 1:45 PM EMERGENCY CREW SUPERVISOR PHOSPHORUS Routine 07/08/2024 1:45 PM EMERGENCY CREW SUPERVISOR MAGNESIUM STAT 07/08/2024 1:45 PM EMERGENCY CREW SUPERVISOR COMPREHENSIVE METABOLIC PANEL STAT 07/08/2024 1:45 PM EMERGENCY CREW SUPERVISOR EGFR STAT 06/30/2024 1:50 PM EMERGENCY CREW SUPERVISOR PHOSPHORUS STAT 06/30/2024 1:50 PM EMERGENCY CREW SUPERVISOR MAGNESIUM STAT 06/30/2024 1:50 PM EMERGENCY CREW SUPERVISOR GLUCOSE, RANDOM (OUTREACH) STAT 06/30/2024 1:50 PM EMERGENCY CREW SUPERVISOR COMPREHENSIVE METABOLIC PANEL WITHOUT GLUCOSE (OUTREACH) STAT 06/30/2024 1:50 PM EMERGENCY CREW SUPERVISOR CYTOMEGALOVIRUS (CMV) DNA, QUANT GEN LAB STAT 06/30/2024 1:50 PM EMERGENCY CREW SUPERVISOR EGFR STAT 06/23/2024 2:20 PM EMERGENCY CREW SUPERVISOR DIFFERENTIAL AUTO STAT 06/23/2024 2:2 0 PM EMERGENCY CREW SUPERVISOR PHOSPHORUS Routine 06/23/2024 2:20 PM EMERGENCY CREW SUPERVISOR MAGNESIUM STAT 06/23/2024 2:20 PM EMERGENCY CREW SUPERVISOR CBC WITH AUTO DIFFERENTIAL STAT 06/23/2024 2:20 PM EMERGENCY CREW SUPERVISOR COMPREHENSIVE METABOLIC PANEL STAT 06/23/2024 2:20 PM EMERGENCY CREW SUPERVISOR CYTOMEGALOVIRUS (CMV) DNA, QUANT GEN LAB STAT 06/23/2024 2:20 PM EMERGENCY CREW SUPERVISOR CALPROTECTIN, FECAL Routine 06/17/2024 4 :20 PM EMERGENCY CREW SUPERVISOR Change in bowel habits Diarrhea, unspecified type Crohn's disease of small and large intestines with complication (CMS/HCC) (HCC) C. DIFFICILE TESTING Routine 06/17/2024 4:20 PM EMERGENCY CREW SUPERVISOR Change in bowel habits Diarrhea, unspecified type Crohn's disease of small and large intestines with complication (CMS/HCC) (HCC) URINALYSIS, MICROSCOPIC ONLY Routine 06/17/2024 12:28 PM EMERGENCY CREW SUPERVISOR Abdominal pain URINALYSIS AND REFLEX TO MICROSCOPIC AND CULTURE Routine 06/17/2024 12:28 PM EMERGENCY CREW SUPERVISOR Abdominal pain EGFR Routine 06/16/2024 1:30 PM EMERGENCY CREW SUPERVISOR PHOSPHORUS Routine 06/16/2024 1:30 PM EMERGENCY CREW SUPERVISOR MAGNESIUM Routine 06/16/2024 1:30 PM EMERGENCY CREW SUPERVISOR COMPREHENSIVE METABOLIC PANEL Routine 06/16/2024 1:30 PM EMERGENCY CREW SUPERVISOR CYTOMEGALOVIRUS (CMV) DNA, QUANT GEN LAB Routine 06/16/2024 1:30 PM EMERGENCY CREW SUPERVISOR EGFR STAT 06/09/2024 2:00 PM EMERGENCY CREW SUPERVISOR DIFFERENTIAL AUTO STAT 06/09/2024 2:0 0 PM EMERGENCY CREW SUPERVISOR PHOSPHORUS STAT 06/09/2024 2:00 PM EMERGENCY CREW SUPERVISOR MAGNESIUM STAT 06/09/2024 2:00 PM EMERGENCY CREW SUPERVISOR CBC WITH AUTO DIFFERENTIAL STAT 06/09/2024 2:00 PM EMERGENCY CREW SUPERVISOR COMPREHENSIVE METABOLIC PANEL STAT 06/09/2024 2:00 PM EMERGENCY CREW SUPERVISOR CYTOMEGALOVIRUS (CMV) DNA, QUANT GEN LAB STAT 06/09/2024 2:00 PM EMERGENCY CREW SUPERVISOR COLONOSCOPY 01/04/2024 12:25 PM CDT HEPATITIS C ANTIBODY Routine 02/23/2023 11:47 AM CDT NAFLD (nonalcoholic fatty liver disease) Elevated liver enzymes from Last 3 Months or Most Recently Relevant to Health Maintenance Results * eGFR (09/01/2024 1:30 PM EMERGENCY CREW SUPERVISOR) eGFR 81 >=60 mL/min/1. 73 m2 Comment: [...] last reviewed 2021. Blood 09/01/2024 1:30 PM EMERGENCY CREW SUPERVISOR 09/01/2024 2:15 PM EMERGENCY CREW SUPERVISOR us Notinfile Unknown LAB BLOOD ORDERABLES Final Res ult [place] [id number] [facility] Department [place] [address] * Differential, auto (09/01/2024 1:30 PM EMERGENCY CREW SUPERVISOR) Neutrophil abs 2.6 1.5 - 6.5 K/cumm Imm gran abs 0.0 0.0 - 0.1 K/cumm [facility] Lymphocyte abs 1.1 0.8 - 3.3 K/cumm [facility] Monocyte abs 0.4 0.2 - 0.8 K/cumm [facility] Eosinophil abs 0.1 0.0 - 0.5 K/cumm [facility] Basophil abs 0.0 0.0 - 0.1 K/cumm [facility] Neutrophil pct 63.1 % [facility] Comment: Interpretive Data Percent cell count reference ranges are not reported, since discordance with absolute values may lead to misinterpretation of CBC data. Current Interpretive Data was last revised on 2017. Imm gran pct 0.5 % [facility] Comment: Interpretive Data Percent cell count reference ranges are not reported, since discordance with absolute values may lead to misinterpretation of CBC data. Current Interpretive Data was last revised on 2017. Lymphocyte pct 26.2 % [facility] Comment: Interpretive Data Percent cell count reference ranges are not reported, since discordance with absolute values may lead to misinterpretation of CBC data. Current Interpretive Data was last revised on 2017. Monocyte pct 8.5 % [facility] Comment: Interpretive Data Percent cell count reference ranges are not reported, since discordance with absolute values may lead to misinterpretation of CBC data. Current Interpretive Data was last revised on 2017. Eosinophil pct 1.2 % [facility] Comment: Interpretive Data Percent cell count reference ranges are not reported, since discordance with absolute values may lead to misinterpretation of CBC data. Current Interpretive Data was last revised on 2017. Basophil pct 0.5 % [facility] Comment: Interpretive Data Percent cell count reference ranges are not reported, since discordance with absolute values may lead to misinterpretation of CBC data. Current Interpretive Data was last revised on 2017. Blood 09/01/2024 1:30 PM EMERGENCY CREW SUPERVISOR 09/01/2024 2:15 PM EMERGENCY CREW SUPERVISOR us Notinfile Unknown LAB BLOOD ORDERABLES Final Res ult [facility] [id number] [facility] Department of Laboratories [place], [place] [id number] * (ABNORMAL) CBC with auto differential (09/01/2024 1:30 PM EMERGENCY CREW SUPERVISOR) WBC 4.1 3.8 - 9.9 K/cumm Hgb 9.5(L) 11.9 - 15.5 g/dL [facility] Hct 28.6(L) 35.6 - 45.5 % [facility] Plt 146(L) 150 - 400 K/cumm [facility] MPV 9.9 9.1 - 12.3 fL [facility] RBC 3.16(L) 3.90 - 5.20 M/cumm [facility] MCV 90.5 81.3 - 96.4 fL [facility] MCH 30.1 27.1 - 33.3 pg [facility] MCHC 33.2 32.3 - 35.7 g/dL [facility] RDW CV 13.7 11.1 - 14.9 % [facility] RDW SD 45.1 35.7 - 48.1 fL [facility] NRBC abs 0.00 0.00 - 0.01 K/cumm [facility] Blood 09/01/2024 1:30 PM EMERGENCY CREW SUPERVISOR 09/01/2024 2:15 PM EMERGENCY CREW SUPERVISOR us Notinfile Unknown LAB BLOOD ORDERABLES Final Res ult Performing Organization Address [facility] Co de Phone Number [address] [address] * Phosphorus (09/01/2024 1:30 PM EMERGENCY CREW SUPERVISOR) [facility] Phosphorus, pl 3.7 2.3 - 4.5 mg/dL Blood 09/01/2024 1:30 PM EMERGENCY CREW SUPERVISOR 09/01/2024 2:15 PM EMERGENCY CREW SUPERVISOR us Notinfile Unknown LAB BLOOD ORDERABLES Final Res ult Performing Organization Address [facility] de Phone Number [address] [place] [address] * Magnesium (09/01/2024 1:30 PM EMERGENCY CREW SUPERVISOR) [facility] Magnesium 2.1 1.4 - 2.5 mg/dL Blood 09/01/2024 1:30 PM EMERGENCY CREW SUPERVISOR 09/01/2024 2:15 PM EMERGENCY CREW SUPERVISOR Notinfile Unknown LAB BLOOD ORDERABLES Final Res ult Performing Organization Address [facility] de Phone Number [address] [address] * (ABNORMAL) Comprehensive metabolic panel (09/01/2024 1:30 PM EMERGENCY CREW SUPERVISOR) [facility] Sodium 133(L) 135 - 145 mmol/L Potassium, pl 3.8 3.3 - 4.9 mmol/L [facility] Chloride 100 97 - 110 mmol/L [facility] CO2 22 22 - 32 mmol/L [facility] Anion gap 11 2 - 15 mmol/L [facility] BUN 17 6 - 25 mg/dL [facility] Creatinine 0.80 0.60 - 1.10 mg/dL [facility] Glucose 118 70 - 199 mg/dL [facility] Comment: Interpretive Data Fasting glucose >/= 126 [...] 2022. Calcium 9.1 8.5 - 10.3 mg/dL [facility] Bilirubin, total 0.4 0.1 - 1.2 mg/dL [facility] Protein, pl 7.3 6.5 - 8.5 g/dL [facility] Albumin 4.0 3.5 - 5.0 g/dL [facility] Alk phos 129 40 - 130 Units/L [facility] ALT 20 7 - 45 Units/L [facility] AST 30 10 - 45 Units/L [facility] Blood 09/01/2024 1:30 PM EMERGENCY CREW SUPERVISOR 09/01/2024 2:15 PM EMERGENCY CREW SUPERVISOR us Notinfile Unknown LAB BLOOD ORDERABLES Final Res ult [place] [address] [facility] Department [place] [address] * (ABNORMAL) Cytomegalovirus (CMV) DNA PCR, quantitative Blood (08/26/2024 1:00 PM EMERGENCY CREW SUPERVISOR) [facility] CMV DNA Detected( A) [facility] Comment: Interpretive Data: The quantifiable range of this assay is 34 IUnits/mL to 10,000,000 IUnits/mL (1.53 log IUnits/mL to 7.0 log IUnits/mL). Testing was performed by the [facility] CMV [facility] ([employer] Testing performed at [facility]. Current interpretive data was last revised on 2021. Testing performed by: [facility], [address] [place]., [address] CMV DNA IU/mL <34 IUnits/mL [facility] Comment:Testing performed by : [facility], [address] [facility], [place]., [address] CMV DNA log IU/mL <1.53 log IUnits/mL MANDY Comment:Testing performed by : [facility], [address] [place]., [address] Blood 08/26/2024 1:00 PM EMERGENCY CREW SUPERVISOR 08/26/2024 7:33 PM EMERGENCY CREW SUPERVISOR Notinfile Unknown LAB MICROBIOLOGY - GENERAL ORD ERABLES Final Result Performing Organization Address [facility] Co de Phone Number MANDY [address] [place] [address] [facility] * Glucose, random (Outreach) (08/26/2024 1:00 PM EMERGENCY CREW SUPERVISOR) Glucose 111 70 - 199 mg/dL Comment: [...] last revised 2022. Blood 08/26/2024 1:00 PM EMERGENCY CREW SUPERVISOR 08/26/2024 4:17 PM EMERGENCY CREW SUPERVISOR Notinfile Unknown LAB BLOOD ORDERABLES Final Res ult Performing Organization Address [facility] Co de Phone Number [address] [place] [address] * eGFR (08/26/2024 1:00 PM EMERGENCY CREW SUPERVISOR) eGFR 70 >=60 mL/min/1. 73 m2 Comment: [...] last reviewed 2021. Blood 08/26/2024 1:00 PM EMERGENCY CREW SUPERVISOR 08/26/2024 4:17 PM EMERGENCY CREW SUPERVISOR us Notinfile Unknown LAB BLOOD ORDERABLES Final Res ult [place] [id number] [facility] Department [place] [address] * (ABNORMAL) Comprehensive metabolic panel, without glucose (Outreach) (08/26/2024 1:00 PM EMERGENCY CREW SUPERVISOR) Sodium 131(L) 135 - 145 mmol/L Potassium, pl 4.0 3.3 - 4.9 mmol/L [facility] Chloride 96(L) 97 - 110 mmol/L [facility] CO2 22 22 - 32 mmol/L [facility] Anion gap 13 2 - 15 mmol/L [facility] BUN 24 6 - 25 mg/dL [facility] Creatinine 0.91 0.60 - 1.10 mg/dL [facility] Calcium 9.3 8.5 - 10.3 mg/dL [facility] Protein, pl 7.9 6.5 - 8.5 g/dL [facility] Albumin 4.2 3.5 - 5.0 g/dL [facility] Bilirubin, total 0.5 0.1 - 1.2 mg/dL [facility] Alk phos 133(H) 40 - 130 Units/L [facility] AST 30 10 - 45 Units/L [facility] ALT 21 7 - 45 Units/L [facility] Blood 08/26/2024 1:00 PM EMERGENCY CREW SUPERVISOR 08/26/2024 4:17 PM EMERGENCY CREW SUPERVISOR us Notinfile Unknown LAB BLOOD ORDERABLES Final Res ult Performing Organization Address [facility] Phone Number [address] [address] * (ABNORMAL) Phosphorus (08/26/2024 1:00 PM EMERGENCY CREW SUPERVISOR) Phosphorus, pl 4.9(H) 2.3 - 4.5 mg/dL Blood 08/26/2024 1:00 PM EMERGENCY CREW SUPERVISOR 08/26/2024 4:17 PM EMERGENCY CREW SUPERVISOR Notinfile Unknown LAB BLOOD ORDERABLES Final Res ult Performing Organization Address [facility] Phone Number [address] [address] * Magnesium (08/26/2024 1:00 PM EMERGENCY CREW SUPERVISOR) Pathologist [facility] Magnesium 2.3 1.4 - 2.5 mg/dL Blood 08/26/2024 1:00 PM EMERGENCY CREW SUPERVISOR 08/26/2024 4:17 PM EMERGENCY CREW SUPERVISOR Notinfile Unknown LAB BLOOD ORDERABLES Final Res ult Performing Organization Address [facility] Phone Number [address] [address] * Glucose, random (Outreach) (08/19/2024 1:30 PM EMERGENCY CREW SUPERVISOR) Pathologist [facility] Glucose 102 70 - 199 mg/dL Comment: [...] last revised 2022. Blood 08/19/2024 1:30 PM EMERGENCY CREW SUPERVISOR 08/19/2024 4:07 PM EMERGENCY CREW SUPERVISOR Luis Miguel Medina MD LAB BLOOD ORDERABLES Final R esult Performing Organization Address [facility] Co de Phone Number MANDY [address] [employer] [place] [address] * eGFR (08/19/2024 1:30 PM EMERGENCY CREW SUPERVISOR) eGFR 80 >=60 mL/min/1. 73 m2 Comment: [...] last reviewed 2021. Blood 08/19/2024 1:30 PM EMERGENCY CREW SUPERVISOR 08/19/2024 4:07 PM EMERGENCY CREW SUPERVISOR Luis Miguel Medina MD LAB BLOOD ORDERABLES Final R esult Performing Organization Address [facility] Co de Phone Number MAND[place] [address] [facility] [place] [address] * Differential, auto (08/19/2024 1:30 PM EMERGENCY CREW SUPERVISOR) Pathologist [facility] Neutrophil abs 2.4 1.5 - 6.5 K/cumm Imm gran abs 0.0 0.0 - 0.1 K/cumm [facility] Lymphocyte abs 1.7 0.8 - 3.3 K/cumm [facility] Monocyte abs 0.4 0.2 - 0.8 K/cumm [facility] Eosinophil abs 0.1 0.0 - 0.5 K/cumm [facility] Basophil abs 0.0 0.0 - 0.1 K/cumm [facility] Neutrophil pct 51.8 % [facility] Comment: Interpretive Data Percent cell count reference ranges are not reported, since discordance with absolute values may lead to misinterpretation of CBC data. Current Interpretive Data was last revised on 2017. Imm gran pct 0.2 % [facility] Comment: Interpretive Data Percent cell count reference ranges are not reported, since discordance with absolute values may lead to misinterpretation of CBC data. Current Interpretive Data was last revised on 2017. Lymphocyte pct 37.7 % [facility] Comment: Interpretive Data Percent cell count reference ranges are not reported, since discordance with absolute values may lead to misinterpretation of CBC data. Current Interpretive Data was last revised on 2017. Monocyte pct 8.1 % [facility] Comment: Interpretive Data Percent cell count reference ranges are not reported, since discordance with absolute values may lead to misinterpretation of CBC data. Current Interpretive Data was last revised on 2017. Eosinophil pct 1.8 % [facility] Comment: Interpretive Data Percent cell count reference ranges are not reported, since discordance with absolute values may lead to misinterpretation of CBC data. Current Interpretive Data was last revised on 2017. Basophil pct 0.4 % [facility] Comment: Interpretive Data Percent cell count reference ranges are not reported, since discordance with absolute values may lead to misinterpretation of CBC data. Current Interpretive Data was last revised on 2017. Blood 08/19/2024 1:30 PM EMERGENCY CREW SUPERVISOR 08/19/2024 4:08 PM EMERGENCY CREW SUPERVISOR Luis Miguel Medina MD LAB BLOOD ORDERABLES Final R esult Performing Organization Address [facility]/ZIP Co de Phone Number MANDY [address] Laboratories [place], [place] [phone] * (ABNORMAL) Comprehensive metabolic panel, without glucose (Outreach) (08/19/2024 1:30 PM EMERGENCY CREW SUPERVISOR) [facility] Sodium 134(L) 135 - 145 mmol/L Potassium, pl 4.0 3.3 - 4.9 mmol/L [facility] Chloride 101 97 - 110 mmol/L [facility] CO2 22 22 - 32 mmol/L [facility] Anion gap 11 2 - 15 mmol/L [facility] BUN 18 6 - 25 mg/dL [facility] Creatinine 0.81 0.60 - 1.10 mg/dL [facility] Calcium 9.4 8.5 - 10.3 mg/dL [facility] Protein, pl 7.7 6.5 - 8.5 g/dL [facility] Albumin 4.1 3.5 - 5.0 g/dL [facility] Bilirubin, total 0.4 0.1 - 1.2 mg/dL [facility] Alk phos 129 40 - 130 Units/L [facility] AST 29 10 - 45 Units/L [facility] ALT 22 7 - 45 Units/L [facility] Blood 08/19/2024 1:30 PM EMERGENCY CREW SUPERVISOR 08/19/2024 4:07 PM EMERGENCY CREW SUPERVISOR Luis Miguel Medina MD LAB BLOOD ORDERABLES Final R esult Performing Organization Address City/[facility]/ZIP Co de Phone Number MANDY [address] [place] [address] * (ABNORMAL) CBC with auto differential (08/19/2024 1:30 PM EMERGENCY CREW SUPERVISOR) [facility] WBC 4.6 3.8 - 9.9 K/cumm Hgb 10.0(L) 11.9 - 15.5 g/dL [facility] Hct 29.9(L) 35.6 - 45.5 % [facility] Plt 168 150 - 400 K/cumm [facility] MPV 10.0 9.1 - 12.3 fL [facility] RBC 3.32(L) 3.90 - 5.20 M/cumm [facility] MCV 90.1 81.3 - 96.4 fL [facility] MCH 30.1 27.1 - 33.3 pg [facility] MCHC 33.4 32.3 - 35.7 g/dL [facility] RDW CV 14.6 11.1 - 14.9 % [facility] RDW SD 48.2(H) 35.7 - 48.1 fL [facility] NRBC abs 0.00 0.00 - 0.01 K/cumm [facility] Blood 08/19/2024 1:30 PM EMERGENCY CREW SUPERVISOR 08/19/2024 4:08 PM EMERGENCY CREW SUPERVISOR Result [facility] Luis Miguel Medina MD LAB BLOOD ORDERABLES Final R esult Performing Organization Address City/[facility] Co de Phone Number [address] [place] [address] * Phosphorus (08/19/2024 1:30 PM EMERGENCY CREW SUPERVISOR) Phosphorus, pl 4.0 2.3 - 4.5 mg/dL Blood 08/19/2024 1:30 PM EMERGENCY CREW SUPERVISOR 08/19/2024 4:07 PM EMERGENCY CREW SUPERVISOR Result [facility] Luis Miguel Medina MD LAB BLOOD ORDERABLES Final R esult Performing Organization Address City/[facility] de Phone Number [address] [place] [address] * Magnesium (08/19/2024 1:30 PM EMERGENCY CREW SUPERVISOR) Magnesium 2.1 1.4 - 2.5 mg/dL Blood 08/19/2024 1:30 PM EMERGENCY CREW SUPERVISOR 08/19/2024 4:07 PM EMERGENCY CREW SUPERVISOR Result [facility] Luis Miguel Medina MD LAB BLOOD ORDERABLES Final R esult Performing Organization Address City/[facility] Co de Phone Number [address] [place] [address] * (ABNORMAL) Cytomegalovirus (CMV) DNA PCR, quantitative Blood (08/11/2024 2:40 PM EMERGENCY CREW SUPERVISOR) Pathologist [facility] CMV DNA Detected( A) [facility] Comment: Interpretive Data: The quantifiable range of this assay is 34 IUnits/mL to 10,000,000 IUnits/mL (1.53 log IUnits/mL to 7.0 log IUnits/mL). Testing was performed by the [employer] CMV Test ([employer] Testing performed at [facility]. Current interpretive data was last revised on 2021. Testing performed by: [facility], [address] [place]., [address] CMV DNA IU/mL <34 IUnits/mL [facility] Comment:Testing performed by : [facility] [facility], [address] CMV DNA log IU/mL <1.53 log IUnits/mL MANDY HE Comment:Testing performed by : [facility], 1 [place]., [address] Blood 08/11/2024 2:40 PM EMERGENCY CREW SUPERVISOR 08/11/2024 5:27 PM EMERGENCY CREW SUPERVISOR us Notinfile Unknown LAB MICROBIOLOGY - GENERAL ORD ERABLES Final Result MANDY 6412 [facility] Department [place] [address] [facility] * eGFR (08/11/2024 2:40 PM EMERGENCY CREW SUPERVISOR) Pathologist [facility] eGFR 71 >=60 mL/min/1. 73 m2 Comment: [...] last reviewed 2021. Blood 08/11/2024 2:40 PM EMERGENCY CREW SUPERVISOR 08/11/2024 3:47 PM EMERGENCY CREW SUPERVISOR us Notinfile Unknown LAB BLOOD ORDERABLES Final Res ult Performing Organization Address [facility] Co de Phone Number [address] [place] [address] * Phosphorus (08/11/2024 2:40 PM EMERGENCY CREW SUPERVISOR) Phosphorus, pl 4.3 2.3 - 4.5 mg/dL Blood 08/11/2024 2:40 PM EMERGENCY CREW SUPERVISOR 08/11/2024 3:47 PM EMERGENCY CREW SUPERVISOR us Notinfile Unknown LAB BLOOD ORDERABLES Final Res ult Performing Organization Address [facility] de Phone Number [address] [address] * Magnesium (08/11/2024 2:40 PM EMERGENCY CREW SUPERVISOR) Magnesium 1.9 1.4 - 2.5 mg/dL Blood 08/11/2024 2:40 PM EMERGENCY CREW SUPERVISOR 08/11/2024 3:47 PM EMERGENCY CREW SUPERVISOR us Notinfile Unknown LAB BLOOD ORDERABLES Final Res ult Performing Organization Address [facility] Co de Phone Number [address] [place] [address] * (ABNORMAL) Comprehensive metabolic panel (08/11/2024 2:40 PM EMERGENCY CREW SUPERVISOR) Sodium 132(L) 135 - 145 mmol/L Potassium, pl 3.5 3.3 - 4.9 mmol/L [facility] Chloride 101 97 - 110 mmol/L [facility] CO2 21(L) 22 - 32 mmol/L [facility] Anion gap 10 2 - 15 mmol/L [facility] BUN 12 6 - 25 mg/dL [facility] Creatinine 0.90 0.60 - 1.10 mg/dL [facility] Glucose 103 70 - 199 mg/dL [facility] Comment: Interpretive Data Fasting glucose >/= 126 [...] 2022. Calcium 9.3 8.5 - 10.3 mg/dL [facility] Bilirubin, total 0.5 0.1 - 1.2 mg/dL [facility] Protein, pl 7.7 6.5 - 8.5 g/dL [facility] Albumin 4.2 3.5 - 5.0 g/dL [facility] Alk phos 127 40 - 130 Units/L [facility] ALT 25 7 - 45 Units/L [facility] AST 38 10 - 45 Units/L [facility] Blood 08/11/2024 2:40 PM EMERGENCY CREW SUPERVISOR 08/11/2024 3:47 PM EMERGENCY CREW SUPERVISOR us Notinfile Unknown LAB BLOOD ORDERABLES Final Res ult MANDY 90[address] [facility] Department [place] [address] * Glucose, random (Outreach) (08/04/2024 2:40 PM EMERGENCY CREW SUPERVISOR) [facility] Glucose 87 70 - 199 mg/dL Comment: [...] last revised 2022. Blood 08/04/2024 2:40 PM EMERGENCY CREW SUPERVISOR 08/04/2024 4:44 PM EMERGENCY CREW SUPERVISOR Luis Miguel Medina MD LAB BLOOD ORDERABLES Final R esult Performing Organization Address [facility] de Phone Number MANDY [address] [facility] Department [place] [address] * eGFR (08/04/2024 2:40 PM EMERGENCY CREW SUPERVISOR) eGFR 71 >=60 mL/min/1. 73 m2 Comment: [...] last reviewed 2021. Blood 08/04/2024 2:40 PM EMERGENCY CREW SUPERVISOR 08/04/2024 4:43 PM EMERGENCY CREW SUPERVISOR Luis Miguel Medina MD LAB BLOOD ORDERABLES Final R esult Performing Organization Address [facility] Co de Phone Number MANDY [address] [facility] Department [place] [address] * Differential, auto (08/04/2024 2:40 PM EMERGENCY CREW SUPERVISOR) Neutrophil abs 2.5 1.5 - 6.5 K/cumm Imm gran abs 0.0 0.0 - 0.1 K/cumm [facility] Lymphocyte abs 1.6 0.8 - 3.3 K/cumm [facility] Monocyte abs 0.4 0.2 - 0.8 K/cumm [facility] Eosinophil abs 0.1 0.0 - 0.5 K/cumm [facility] Basophil abs 0.0 0.0 - 0.1 K/cumm [facility] Neutrophil pct 55.1 % [facility] Comment: Interpretive Data Percent cell count reference ranges are not reported, since discordance with absolute values may lead to misinterpretation of CBC data. Current Interpretive Data was last revised on 2017. Imm gran pct 0.7 % [facility] Comment: Interpretive Data Percent cell count reference ranges are not reported, since discordance with absolute values may lead to misinterpretation of CBC data. Current Interpretive Data was last revised on 2017. Lymphocyte pct 34.3 % [facility] Comment: Interpretive Data Percent cell count reference ranges are not reported, since discordance with absolute values may lead to misinterpretation of CBC data. Current Interpretive Data was last revised on 2017. Monocyte pct 7.7 % [facility] Comment: Interpretive Data Percent cell count reference ranges are not reported, since discordance with absolute values may lead to misinterpretation of CBC data. Current Interpretive Data was last revised on 2017. Eosinophil pct 1.5 % [facility] Comment: Interpretive Data Percent cell count reference ranges are not reported, since discordance with absolute values may lead to misinterpretation of CBC data. Current Interpretive Data was last revised on 2017. Basophil pct 0.7 % [facility] Comment: Interpretive Data Percent cell count reference ranges are not reported, since discordance with absolute values may lead to misinterpretation of CBC data. Current Interpretive Data was last revised on 2017. Blood 08/04/2024 2:40 PM EMERGENCY CREW SUPERVISOR 08/04/2024 4:44 PM EMERGENCY CREW SUPERVISOR Luis Miguel Medina MD LAB BLOOD ORDERABLES Final R [facility] Performing Organization Address [facility] Co de Phone Number MANDY [address] [place] [address] * (ABNORMAL) Comprehensive metabolic panel, without glucose (Outreach) (08/04/2024 2:40 PM EMERGENCY CREW SUPERVISOR) [facility] Sodium 134(L) 135 - 145 mmol/L Potassium, pl 4.0 3.3 - 4.9 mmol/L [facility] Chloride 100 97 - 110 mmol/L [facility] CO2 23 22 - 32 mmol/L [facility] Anion gap 11 2 - 15 mmol/L [facility] BUN 12 6 - 25 mg/dL [facility] Creatinine 0.89 0.60 - 1.10 mg/dL [facility] Calcium 9.5 8.5 - 10.3 mg/dL [facility] Protein, pl 7.6 6.5 - 8.5 g/dL [facility] Albumin 4.1 3.5 - 5.0 g/dL [facility] Bilirubin, total 0.5 0.1 - 1.2 mg/dL [facility] Alk phos 128 40 - 130 Units/L [facility] AST 30 10 - 45 Units/L [facility] ALT 22 7 - 45 Units/L [facility] Blood 08/04/2024 2:40 PM EMERGENCY CREW SUPERVISOR 08/04/2024 4:43 PM EMERGENCY CREW SUPERVISOR Luis Miguel Medina MD LAB BLOOD ORDERABLES Final R esult Performing Organization Address [facility] Co de Phone Number [address] [place] [address] * (ABNORMAL) CBC with auto differential (08/04/2024 2:40 PM EMERGENCY CREW SUPERVISOR) [facility] WBC 4.5 3.8 - 9.9 K/cumm Hgb 9.8(L) 11.9 - 15.5 g/dL [facility] Hct 30.0(L) 35.6 - 45.5 % [facility] Plt 175 150 - 400 K/cumm [facility] MPV 9.9 9.1 - 12.3 fL [facility] RBC 3.35(L) 3.90 - 5.20 M/cumm [facility] MCV 89.6 81.3 - 96.4 fL [facility] MCH 29.3 27.1 - 33.3 pg [facility] MCHC 32.7 32.3 - 35.7 g/dL [facility] RDW CV 15.1(H) 11.1 - 14.9 % [facility] RDW SD 50.2(H) 35.7 - 48.1 fL [facility] NRBC abs 0.00 0.00 - 0.01 K/cumm [facility] Blood 08/04/2024 2:40 PM EMERGENCY CREW SUPERVISOR 08/04/2024 4:44 PM EMERGENCY CREW SUPERVISOR Luis Miguel Medina MD LAB BLOOD ORDERABLES Final R esult Performing Organization Address City/[facility] Co de Phone Number [address] [place] [address] * (ABNORMAL) Phosphorus (08/04/2024 2:40 PM EMERGENCY CREW SUPERVISOR) Phosphorus, pl 5.0(H) 2.3 - 4.5 mg/dL Blood 08/04/2024 2:40 PM EMERGENCY CREW SUPERVISOR 08/04/2024 4:43 PM EMERGENCY CREW SUPERVISOR Luis Miguel eMdina MD LAB BLOOD ORDERABLES Final R esult Performing Organization Address City/[facility] Co de Phone Number [address] [place] [address] * Magnesium (08/04/2024 2:40 PM EMERGENCY CREW SUPERVISOR) Pathologist [facility] Magnesium 2.0 1.4 - 2.5 mg/dL Blood 08/04/2024 2:40 PM EMERGENCY CREW SUPERVISOR 08/04/2024 4:43 PM EMERGENCY CREW SUPERVISOR Luis Miguel Medina MD LAB BLOOD ORDERABLES Final R esult Performing Organization Address [facility]/State/ZIP Co de Phone Number MANDY [address] [facility] Department [place] [address] * (ABNORMAL) Cytomegalovirus (CMV) DNA PCR, quantitative Blood (07/29/2024 2:30 PM EMERGENCY CREW SUPERVISOR) Pathologist [facility] CMV DNA Detected( A) [facility] Comment: Interpretive Data: The quantifiable range of this assay is 34 IUnits/mL to 10,000,000 IUnits/mL (1.53 log IUnits/mL to 7.0 log IUnits/mL). Testing was performed by the [facility] 68[facility] CMV Test ([employer] Testing performed at [facility]. Current interpretive data was last revised on 2021. Testing performed by: [facility], [address] [place]., [address] CMV DNA IU/mL <34 IUnits/mL [facility] Comment:Testing performed by : [facility], [address] [place]., [address] CMV DNA log IU/mL <1.53 log IUnits/mL MANDY Comment:Testing performed by : [facility], [address] [place]., [address] Blood 07/29/2024 2:30 PM EMERGENCY CREW SUPERVISOR 07/29/2024 10:16 PM EMERGENCY CREW SUPERVISOR Luis Miguel Medina MD LAB MICROBIOLOGY - GENERAL O RDERABLES Final Result MANDY [address] [facility] Department [place] [address] [facility] * Glucose, random (Outreach) (07/29/2024 2:30 PM EMERGENCY CREW SUPERVISOR) [facility] Glucose 100 70 - 199 mg/dL Comment: [...] last revised 2022. Blood 07/29/2024 2:30 PM EMERGENCY CREW SUPERVISOR 07/29/2024 6:42 PM EMERGENCY CREW SUPERVISOR Luis Miguel Medina MD LAB BLOOD ORDERABLES Final R esult Performing Organization Address [facility] Co de Phone Number MANDY [address] [employer] [place], [place] [id number] * eGFR (07/29/2024 2:30 PM EMERGENCY CREW SUPERVISOR) eGFR 86 >=60 mL/min/1. 73 m2 Comment: [...] last reviewed 2021. Blood 07/29/2024 2:30 PM EMERGENCY CREW SUPERVISOR 07/29/2024 6:42 PM EMERGENCY CREW SUPERVISOR Luis Miguel Medina MD LAB BLOOD ORDERABLES Final R esult Performing Organization Address City/[facility]/ZIP Co de Phone Number MANDY [facility] [place] [address] * (ABNORMAL) Comprehensive metabolic panel, without glucose (Outreach) (07/29/2024 2:30 PM EMERGENCY CREW SUPERVISOR) [facility] Sodium 130(L) 135 - 145 mmol/L Potassium, pl 4.0 3.3 - 4.9 mmol/L [facility] Chloride 99 97 - 110 mmol/L [facility] CO2 22 22 - 32 mmol/L [facility] Anion gap 9 2 - 15 mmol/L [facility] BUN 16 6 - 25 mg/dL [facility] Creatinine 0.76 0.60 - 1.10 mg/dL [facility] Calcium 9.1 8.5 - 10.3 mg/dL [facility] Protein, pl 7.1 6.5 - 8.5 g/dL [facility] Albumin 3.9 3.5 - 5.0 g/dL [facility] Bilirubin, total 0.3 0.1 - 1.2 mg/dL [facility] Alk phos 108 40 - 130 Units/L [facility] AST 23 10 - 45 Units/L [facility] ALT 14 7 - 45 Units/L [facility] Blood 07/29/2024 2:30 PM EMERGENCY CREW SUPERVISOR 07/29/2024 6:42 PM EMERGENCY CREW SUPERVISOR Luis Miguel Medina MD LAB BLOOD ORDERABLES Final R esult Performing Organization Address City/[facility]/ZIP Co de Phone Number [address] [employer] [place] [address] * Phosphorus (07/29/2024 2:30 PM EMERGENCY CREW SUPERVISOR) [facility] Phosphorus, pl 3.7 2.3 - 4.5 mg/dL Blood 07/29/2024 2:30 PM EMERGENCY CREW SUPERVISOR 07/29/2024 6:42 PM EMERGENCY CREW SUPERVISOR Luis Miguel Medina MD LAB BLOOD ORDERABLES Final R esult Performing Organization Address City/[facility]/ZIP Co de Phone Number [address] [place] [address] * Magnesium (07/29/2024 2:30 PM EMERGENCY CREW SUPERVISOR) Magnesium 2.1 1.4 - 2.5 mg/dL Blood 07/29/2024 2:30 PM EMERGENCY CREW SUPERVISOR 07/29/2024 6:42 PM EMERGENCY CREW SUPERVISOR Luis Miguel Medina MD LAB BLOOD ORDERABLES Final R esult Performing Organization Address City/[facility]/ZIP Co de Phone Number MANDY [address] [place] [address] * eGFR (07/21/2024 1:00 PM EMERGENCY CREW SUPERVISOR) eGFR 84 >=60 mL/min/1. 73 m2 Comment: [...] last reviewed 2021. Blood 07/21/2024 1:00 PM EMERGENCY CREW SUPERVISOR 07/21/2024 2:09 PM EMERGENCY CREW SUPERVISOR us Notinfile Unknown LAB BLOOD ORDERABLES Final Res ult Performing Organization Address City/[facility]/ZIP Co de Phone Number MANDY [address] [place] [address] * Phosphorus (07/21/2024 1:00 PM EMERGENCY CREW SUPERVISOR) Phosphorus, pl 4.1 2.3 - 4.5 mg/dL Blood 07/21/2024 1:00 PM EMERGENCY CREW SUPERVISOR 07/21/2024 2:09 PM EMERGENCY CREW SUPERVISOR us Notinfile Unknown LAB BLOOD ORDERABLES Final Res ult Performing Organization Address [facility] Co de Phone Number [address] [address] * Magnesium (07/21/2024 1:00 PM EMERGENCY CREW SUPERVISOR) [facility] Magnesium 1.8 1.4 - 2.5 mg/dL Blood 07/21/2024 1:00 PM EMERGENCY CREW SUPERVISOR 07/21/2024 2:09 PM EMERGENCY CREW SUPERVISOR Notinfile Unknown LAB BLOOD ORDERABLES Final Res ult Performing Organization Address [facility] Phone Number [address] [address] * (ABNORMAL) Comprehensive metabolic panel (07/21/2024 1:00 PM EMERGENCY CREW SUPERVISOR) [facility] Sodium 131(L) 135 - 145 mmol/L Potassium, pl 3.7 3.3 - 4.9 mmol/L [facility] Chloride 100 97 - 110 mmol/L [facility] CO2 21(L) 22 - 32 mmol/L [facility] Anion gap 10 2 - 15 mmol/L [facility] BUN 11 6 - 25 mg/dL [facility] Creatinine 0.78 0.60 - 1.10 mg/dL [facility] Glucose 117 70 - 199 mg/dL [facility] Comment: Interpretive Data Fasting glucose >/= 126 [...] 2022. Calcium 8.6 8.5 - 10.3 mg/dL [facility] Bilirubin, total 0.5 0.1 - 1.2 mg/dL [facility] Protein, pl 6.9 6.5 - 8.5 g/dL [facility] Albumin 3.8 3.5 - 5.0 g/dL [facility] Alk phos 110 40 - 130 Units/L [facility] ALT 22 7 - 45 Units/L [facility] AST 31 10 - 45 Units/L [facility] Blood 07/21/2024 1:00 PM EMERGENCY CREW SUPERVISOR 07/21/2024 2:09 PM EMERGENCY CREW SUPERVISOR us Notinfile Unknown LAB BLOOD ORDERABLES Final Res ult MANDY 45[address] [facility] Department [place] [address] * (ABNORMAL) Cytomegalovirus (CMV) DNA PCR, quantitative Blood (07/14/2024 2:40 PM EMERGENCY CREW SUPERVISOR) [facility] CMV DNA Detected( A) [facility] Comment: Interpretive Data: The quantifiable range of this assay is 34 IUnits/mL to 10,000,000 IUnits/mL (1.53 log IUnits/mL to 7.0 log IUnits/mL). Testing was performed by the [facility] CMV Test ([employer] Testing performed at [facility]. Current interpretive data was last revised on 2021. Testing performed by: [facility], [address] [place] [address] CMV DNA IU/mL 39 IUnits/mL [facility] Comment:Testing performed by : [facility], [address] [place]., [address] CMV DNA log IU/mL 1.59 log IUnits/mL [facility] Comment:Testing performed by : [facility], [address] [place]., [address] Blood 07/14/2024 2:40 PM EMERGENCY CREW SUPERVISOR 07/14/2024 10:06 PM EMERGENCY CREW SUPERVISOR us Notinfile Unknown LAB MICROBIOLOGY - GENERAL ORD ERABLES Final Result Performing Organization Address [facility] Co de Phone Number MANDY [address] [place] [address] [facility] * eGFR (07/14/2024 2:40 PM EMERGENCY CREW SUPERVISOR) eGFR 71 >=60 mL/min/1. 73 m2 Comment: [...] last reviewed 2021. Blood 07/14/2024 2:40 PM EMERGENCY CREW SUPERVISOR 07/14/2024 3:57 PM EMERGENCY CREW SUPERVISOR us Notinfile Unknown LAB BLOOD ORDERABLES Final Res ult Performing Organization Address City/[facility]/ZIP Co de Phone Number MANDY [address] [place] [address] * Differential, auto (07/14/2024 2:40 PM EMERGENCY CREW SUPERVISOR) Pathologist [facility] Neutrophil abs 2.8 1.5 - 6.5 K/cumm Imm gran abs 0.0 0.0 - 0.1 K/cumm [facility] Lymphocyte abs 1.5 0.8 - 3.3 K/cumm [facility] Monocyte abs 0.4 0.2 - 0.8 K/cumm [facility] Eosinophil abs 0.1 0.0 - 0.5 K/cumm [facility] Basophil abs 0.0 0.0 - 0.1 K/cumm [facility] Neutrophil pct 57.8 % [facility] Comment: Interpretive Data Percent cell count reference ranges are not reported, since discordance with absolute values may lead to misinterpretation of CBC data. Current Interpretive Data was last revised on 2017. Imm gran pct 0.6 % [facility] Comment: Interpretive Data Percent cell count reference ranges are not reported, since discordance with absolute values may lead to misinterpretation of CBC data. Current Interpretive Data was last revised on 2017. Lymphocyte pct 30.7 % [facility] Comment: Interpretive Data Percent cell count reference ranges are not reported, since discordance with absolute values may lead to misinterpretation of CBC data. Current Interpretive Data was last revised on 2017. Monocyte pct 8.0 % [facility] Comment: Interpretive Data Percent cell count reference ranges are not reported, since discordance with absolute values may lead to misinterpretation of CBC data. Current Interpretive Data was last revised on 2017. Eosinophil pct 2.3 % [facility] Comment: Interpretive Data Percent cell count reference ranges are not reported, since discordance with absolute values may lead to misinterpretation of CBC data. Current Interpretive Data was last revised on 2017. Basophil pct 0.6 % [facility] Comment: Interpretive Data Percent cell count reference ranges are not reported, since discordance with absolute values may lead to misinterpretation of CBC data. Current Interpretive Data was last revised on 2017. Blood 07/14/2024 2:40 PM EMERGENCY CREW SUPERVISOR 07/14/2024 3:57 PM EMERGENCY CREW SUPERVISOR us Notinfile Unknown LAB BLOOD ORDERABLES Final Res ult MANDY [address] [facility] Department [place] [address] * (ABNORMAL) CBC with auto differential (07/14/2024 2:40 PM EMERGENCY CREW SUPERVISOR) WBC 4.9 3.8 - 9.9 K/cumm Hgb 9.7(L) 11.9 - 15.5 g/dL [facility] Hct 30.0(L) 35.6 - 45.5 % [facility] Plt 164 150 - 400 K/cumm [facility] MPV 9.7 9.1 - 12.3 fL [facility] RBC 3.37(L) 3.90 - 5.20 M/cumm [facility] MCV 89.0 81.3 - 96.4 fL [facility] MCH 28.8 27.1 - 33.3 pg [facility] MCHC 32.3 32.3 - 35.7 g/dL [facility] RDW CV 15.9(H) 11.1 - 14.9 % [facility] RDW SD 51.9(H) 35.7 - 48.1 fL [facility] NRBC abs 0.00 0.00 - 0.01 K/cumm [facility] Blood 07/14/2024 2:40 PM EMERGENCY CREW SUPERVISOR 07/14/2024 3:57 PM EMERGENCY CREW SUPERVISOR us Notinfile Unknown LAB BLOOD ORDERABLES Final Res ult Performing Organization Address [facility] Co de Phone Number [address] [place] [address] * Phosphorus (07/14/2024 2:40 PM EMERGENCY CREW SUPERVISOR) Pathologist [facility] Phosphorus, pl 4.3 2.3 - 4.5 mg/dL Blood 07/14/2024 2:40 PM EMERGENCY CREW SUPERVISOR 07/14/2024 3:57 PM EMERGENCY CREW SUPERVISOR Notinfile Unknown LAB BLOOD ORDERABLES Final Res ult Performing Organization Address [facility] Co de Phone Number [address] [place] [address] * Magnesium (07/14/2024 2:40 PM EMERGENCY CREW SUPERVISOR) [facility] Magnesium 1.8 1.4 - 2.5 mg/dL Blood 07/14/2024 2:40 PM EMERGENCY CREW SUPERVISOR 07/14/2024 3:57 PM EMERGENCY CREW SUPERVISOR us Notinfile Unknown LAB BLOOD ORDERABLES Final Res ult Performing Organization Address City/[facility]/ZIP Co de Phone Number [facility] [address] [facility] Department [place] [address] * (ABNORMAL) Comprehensive metabolic panel (07/14/2024 2:40 PM EMERGENCY CREW SUPERVISOR) Sodium 130(L) 135 - 145 mmol/L Potassium, pl 3.8 3.3 - 4.9 mmol/L [facility] Chloride 97 97 - 110 mmol/L [facility] CO2 21(L) 22 - 32 mmol/L [facility] Anion gap 12 2 - 15 mmol/L [facility] BUN 11 6 - 25 mg/dL [facility] Creatinine 0.90 0.60 - 1.10 mg/dL [facility] Glucose 111 70 - 199 mg/dL [facility] Comment: Interpretive Data Fasting glucose >/= 126 [...] 2022. Calcium 9.1 8.5 - 10.3 mg/dL [facility] Bilirubin, total 0.5 0.1 - 1.2 mg/dL [facility] Protein, pl 7.4 6.5 - 8.5 g/dL [facility] Albumin 4.0 3.5 - 5.0 g/dL [facility] Alk phos 134(H) 40 - 130 Units/L [facility] ALT 20 7 - 45 Units/L [facility] AST 29 10 - 45 Units/L [facility] Blood 07/14/2024 2:40 PM EMERGENCY CREW SUPERVISOR 07/14/2024 3:57 PM EMERGENCY CREW SUPERVISOR us Notinfile Unknown LAB BLOOD ORDERABLES Final Res ult MANDY [address] [place] [address] * eGFR (07/08/2024 1:45 PM EMERGENCY CREW SUPERVISOR) eGFR 82 >=60 mL/min/1. 73 m2 Comment: [...] last reviewed 2021. Blood 07/08/2024 1:45 PM EMERGENCY CREW SUPERVISOR 07/08/2024 2:35 PM EMERGENCY CREW SUPERVISOR us Notinfile Unknown LAB BLOOD ORDERABLES Final Res ult Performing Organization Address [facility] Co de Phone Number MANDY [address] [place] [address] * Phosphorus (07/08/2024 1:45 PM EMERGENCY CREW SUPERVISOR) Phosphorus, pl 3.8 2.3 - 4.5 mg/dL Blood 07/08/2024 1:45 PM EMERGENCY CREW SUPERVISOR 07/08/2024 2:35 PM EMERGENCY CREW SUPERVISOR us Notinfile Unknown LAB BLOOD ORDERABLES Final Res ult Performing Organization Address [facility] Co de Phone Number MANDY [address] [place] [address] * Magnesium (07/08/2024 1:45 PM EMERGENCY CREW SUPERVISOR) Pathologist [facility] Magnesium 2.2 1.4 - 2.5 mg/dL Blood 07/08/2024 1:45 PM EMERGENCY CREW SUPERVISOR 07/08/2024 2:35 PM EMERGENCY CREW SUPERVISOR us Notinfile Unknown LAB BLOOD ORDERABLES Final Res ult [facility] [address] [facility] Department [place] [address] * (ABNORMAL) Comprehensive metabolic panel (07/08/2024 1:45 PM EMERGENCY CREW SUPERVISOR) Pathologist [facility] Sodium 130(L) 135 - 145 mmol/L Potassium, pl 4.1 3.3 - 4.9 mmol/L [facility] Chloride 96(L) 97 - 110 mmol/L [facility] CO2 22 22 - 32 mmol/L [facility] Anion gap 12 2 - 15 mmol/L [facility] BUN 16 6 - 25 mg/dL [facility] Creatinine 0.79 0.60 - 1.10 mg/dL [facility] Glucose 124 70 - 199 mg/dL [facility] Comment: Interpretive Data Fasting glucose >/= 126 [...] 2022. Calcium 9.1 8.5 - 10.3 mg/dL [facility] Bilirubin, total 0.4 0.1 - 1.2 mg/dL [facility] Protein, pl 7.4 6.5 - 8.5 g/dL [facility] Albumin 4.0 3.5 - 5.0 g/dL [facility] Alk phos 129 40 - 130 Units/L [facility] ALT 19 7 - 45 Units/L [facility] AST 26 10 - 45 Units/L [facility] Blood 07/08/2024 1:45 PM EMERGENCY CREW SUPERVISOR 07/08/2024 2:35 PM EMERGENCY CREW SUPERVISOR us Notinfile Unknown LAB BLOOD ORDERABLES Final Res ult Performing Organization Address [facility] Co de Phone Number MANDY [address] [place] [address] * (ABNORMAL) Cytomegalovirus (CMV) DNA PCR, quantitative Blood (06/30/2024 1:50 PM EMERGENCY CREW SUPERVISOR) [facility] CMV DNA Detected( A) [facility] Comment: Interpretive Data: The quantifiable range of this assay is 34 IUnits/mL to 10,000,000 IUnits/mL (1.53 log IUnits/mL to 7.0 log IUnits/mL). Testing was performed by the [facility] CMV Test ([employer] Testing performed at [facility]. Current interpretive data was last revised on 2021. Testing performed by: [facility], [address] [place]., [address] CMV DNA IU/mL <34 IUnits/mL [facility] Comment:Testing performed by : [facility], [address] [place]., [address] CMV DNA log IU/mL <1.53 log IUnits/mL [facility] Comment:Testing performed by : [facility], [address] [place]., [address] Blood 06/30/2024 1:50 PM EMERGENCY CREW SUPERVISOR 06/30/2024 8:05 PM EMERGENCY CREW SUPERVISOR us Notinfile Unknown LAB MICROBIOLOGY - GENERAL ORD ERABLES Final Result Performing Organization Address City/[facility]/ZIP Co de Phone Number MANDY [address] [address] [facility] * Glucose, random (Outreach) (06/30/2024 1:50 PM EMERGENCY CREW SUPERVISOR) Glucose 112 70 - 199 mg/dL Comment: [...] last revised 2022. Blood 06/30/2024 1:50 PM EMERGENCY CREW SUPERVISOR 06/30/2024 3:08 PM EMERGENCY CREW SUPERVISOR us Notinfile Unknown LAB BLOOD ORDERABLES Final Res ult [facility]Y [facility] Department [place] [address] * eGFR (06/30/2024 1:50 PM EMERGENCY CREW SUPERVISOR) eGFR 68 >=60 mL/min/1. 73 m2 Comment: [...] last reviewed 2021. Blood 06/30/2024 1:50 PM EMERGENCY CREW SUPERVISOR 06/30/2024 3:08 PM EMERGENCY CREW SUPERVISOR us Notinfile Unknown LAB BLOOD ORDERABLES Final Res ult Performing Organization Address City/[facility]/ZIP Co de Phone Number MANDY [address] [place] [address] * (ABNORMAL) Comprehensive metabolic panel, without glucose (Outreach) (06/30/2024 1:50 PM EMERGENCY CREW SUPERVISOR) Sodium 131(L) 135 - 145 mmol/L Potassium, pl 3.4 3.3 - 4.9 mmol/L [facility] Chloride 100 97 - 110 mmol/L [facility] CO2 20(L) 22 - 32 mmol/L [facility] Anion gap 11 2 - 15 mmol/L [facility] BUN 13 6 - 25 mg/dL [facility] Creatinine 0.93 0.60 - 1.10 mg/dL [facility] Calcium 8.6 8.5 - 10.3 mg/dL [facility] Protein, pl 7.2 6.5 - 8.5 g/dL [facility] Albumin 3.9 3.5 - 5.0 g/dL [facility] Bilirubin, total 0.5 0.1 - 1.2 mg/dL [facility] Alk phos 128 40 - 130 Units/L [facility] AST 30 10 - 45 Units/L [facility] ALT 21 7 - 45 Units/L [facility] Blood 06/30/2024 1:50 PM EMERGENCY CREW SUPERVISOR 06/30/2024 3:08 PM EMERGENCY CREW SUPERVISOR us Notinfile Unknown LAB BLOOD ORDERABLES Final Res ult Performing Organization Address City/[facility]/ZIP Co de Phone Number MANDY [address] [place] [address] * Phosphorus (06/30/2024 1:50 PM EMERGENCY CREW SUPERVISOR) Pathologist [facility] Phosphorus, pl 3.9 2.3 - 4.5 mg/dL Blood 06/30/2024 1:50 PM EMERGENCY CREW SUPERVISOR 06/30/2024 3:08 PM EMERGENCY CREW SUPERVISOR us Notinfile Unknown LAB BLOOD ORDERABLES Final Res ult Performing Organization Address City/[facility]/ZIP Co de Phone Number MANDY [facility] [place] [address] * Magnesium (06/30/2024 1:50 PM EMERGENCY CREW SUPERVISOR) Pathologist [facility] Magnesium 1.8 1.4 - 2.5 mg/dL Blood 06/30/2024 1:50 PM EMERGENCY CREW SUPERVISOR 06/30/2024 3:08 PM EMERGENCY CREW SUPERVISOR Notinfile Unknown LAB BLOOD ORDERABLES Final Res ult Performing Organization Address [facility] Co de Phone Number СЕРГЕЙ[address] [address] * (ABNORMAL) Cytomegalovirus (CMV) DNA PCR, quantitative Blood (06/23/2024 2:20 PM EMERGENCY CREW SUPERVISOR) [facility] CMV DNA Detected( A) [facility] Comment: Interpretive Data: The quantifiable range of this assay is 34 IUnits/mL to 10,000,000 IUnits/mL (1.53 log IUnits/mL to 7.0 log IUnits/mL). Testing was performed by the [facility] CMV Test ([employer] Testing performed at [facility]. Current interpretive data was last revised on 2021. Testing performed by: [facility], [address] [place]., [address] CMV DNA IU/mL <34 IUnits/mL [facility]Y Comment:Testing performed by : [facility], [address] [place]., [address] CMV DNA log IU/mL <1.53 log IUnits/mL MANDY Comment:Testing performed by : [facility], [address] [place]., [address] Blood 06/23/2024 2:20 PM EMERGENCY CREW SUPERVISOR 06/23/2024 5:32 PM EMERGENCY CREW SUPERVISOR us Notinfile Unknown LAB MICROBIOLOGY - GENERAL ORD ERABLES Final Result Performing Organization Address City/[facility]/ZIP Co de Phone Number MANDY [address] [place] [address] [facility] * eGFR (06/23/2024 2:20 PM EMERGENCY CREW SUPERVISOR) Pathologist [facility] eGFR 86 >=60 mL/min/1. 73 m2 Comment: [...] last reviewed 2021. Blood 06/23/2024 2:20 PM EMERGENCY CREW SUPERVISOR 06/23/2024 3:49 PM EMERGENCY CREW SUPERVISOR us Notinfile Unknown LAB BLOOD ORDERABLES Final Res ult Performing Organization Address City/[facility]/ZIP Co de Phone Number MANDY [address] [place] [address] * Differential, auto (06/23/2024 2:20 PM EMERGENCY CREW SUPERVISOR) [facility] Neutrophil abs 2.2 1.5 - 6.5 K/cumm Imm gran abs 0.0 0.0 - 0.1 K/cumm [facility] Lymphocyte abs 1.8 0.8 - 3.3 K/cumm [facility] Monocyte abs 0.3 0.2 - 0.8 K/cumm [facility] Eosinophil abs 0.1 0.0 - 0.5 K/cumm [facility] Basophil abs 0.0 0.0 - 0.1 K/cumm [facility] Neutrophil pct 49.2 % [facility] Comment: Interpretive Data Percent cell count reference ranges are not reported, since discordance with absolute values may lead to misinterpretation of CBC data. Current Interpretive Data was last revised on 2017. Imm gran pct 0.5 % [facility] Comment: Interpretive Data Percent cell count reference ranges are not reported, since discordance with absolute values may lead to misinterpretation of CBC data. Current Interpretive Data was last revised on 2017. Lymphocyte pct 41.8 % [facility] Comment: Interpretive Data Percent cell count reference ranges are not reported, since discordance with absolute values may lead to misinterpretation of CBC data. Current Interpretive Data was last revised on 2017. Monocyte pct 6.6 % [facility] Comment: Interpretive Data Percent cell count reference ranges are not reported, since discordance with absolute values may lead to misinterpretation of CBC data. Current Interpretive Data was last revised on 2017. Eosinophil pct 1.4 % [facility] Comment: Interpretive Data Percent cell count reference ranges are not reported, since discordance with absolute values may lead to misinterpretation of CBC data. Current Interpretive Data was last revised on 2017. Basophil pct 0.5 % [facility] Comment: Interpretive Data Percent cell count reference ranges are not reported, since discordance with absolute values may lead to misinterpretation of CBC data. Current Interpretive Data was last revised on 2017. Blood 06/23/2024 2:20 PM EMERGENCY CREW SUPERVISOR 06/23/2024 3:49 PM EMERGENCY CREW SUPERVISOR us Notinfile Unknown LAB BLOOD ORDERABLES Final Res ult MANDY [address] [facility] Department [place] [address] * (ABNORMAL) CBC with auto differential (06/23/2024 2:20 PM EMERGENCY CREW SUPERVISOR) WBC 4.4 3.8 - 9.9 K/cumm Hgb 9.2(L) 11.9 - 15.5 g/dL [facility] Hct 28.4(L) 35.6 - 45.5 % [facility] Plt 158 150 - 400 K/cumm [facility] MPV 10.1 9.1 - 12.3 fL [facility] RBC 3.29(L) 3.90 - 5.20 M/cumm [facility] MCV 86.3 81.3 - 96.4 fL [facility] MCH 28.0 27.1 - 33.3 pg [facility] MCHC 32.4 32.3 - 35.7 g/dL [facility] RDW CV 15.5(H) 11.1 - 14.9 % [facility] RDW SD 48.5(H) 35.7 - 48.1 fL [facility] NRBC abs 0.00 0.00 - 0.01 K/cumm [facility] Blood 06/23/2024 2:20 PM EMERGENCY CREW SUPERVISOR 06/23/2024 3:49 PM EMERGENCY CREW SUPERVISOR us Notinfile Unknown LAB BLOOD ORDERABLES Final Res ult Performing Organization Address [facility] Co de Phone Number [address] [place] [address] * Phosphorus (06/23/2024 2:20 PM EMERGENCY CREW SUPERVISOR) Pathologist [facility] Phosphorus, pl 4.0 2.3 - 4.5 mg/dL Blood 06/23/2024 2:20 PM EMERGENCY CREW SUPERVISOR 06/23/2024 3:49 PM EMERGENCY CREW SUPERVISOR us Notinfile Unknown LAB BLOOD ORDERABLES Final Res ult Performing Organization Address [facility] Co de Phone Number [address] [place] [address] * Magnesium (06/23/2024 2:20 PM EMERGENCY CREW SUPERVISOR) Pathologist [facility] Magnesium 1.9 1.4 - 2.5 mg/dL Blood 06/23/2024 2:20 PM EMERGENCY CREW SUPERVISOR 06/23/2024 3:49 PM EMERGENCY CREW SUPERVISOR us Notinfile Unknown LAB BLOOD ORDERABLES Final Res ult Performing Organization Address City/[facility]/ZIP Co de Phone Number MANDY [address] [facility] Department [place] [address] * (ABNORMAL) Comprehensive metabolic panel (06/23/2024 2:20 PM EMERGENCY CREW SUPERVISOR) Sodium 133(L) 135 - 145 mmol/L Potassium, pl 3.9 3.3 - 4.9 mmol/L [facility] Chloride 102 97 - 110 mmol/L [facility] CO2 22 22 - 32 mmol/L [facility] Anion gap 9 2 - 15 mmol/L [facility] BUN 11 6 - 25 mg/dL [facility] Creatinine 0.76 0.60 - 1.10 mg/dL [facility] Glucose 95 70 - 199 mg/dL [facility] Comment: Interpretive Data Fasting glucose >/= 126 [...] 2022. 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 difficile testing Stool (06/17/2024 4:20 PM EMERGENCY CREW SUPERVISOR) [facility]ologist [facility] Result Negative Negative Toxin Result Negative Negative [facility] C. diff result Negative, free toxin Negative, free toxin [facility] C. diff interp Negative for toxigenic Clostridioides (Clostridium) difficile. Analysis was performed using a glutamate dehydrogenase antigen detection assay combined with a C. difficile toxin detection assay. [facility] Stool 06/17/2024 4:2 0 PM EMERGENCY CREW SUPERVISOR 06/17/2024 4:42 PM EMERGENCY CREW SUPERVISOR Beata Ambrosio MD LAB MICROBIOLOGY - GENERAL OR DERABLES Final Result Performing Organization Address City/[facility]/[place] [address] * (ABNORMAL) Calprotectin, fecal (06/17/2024 4:20 PM EMERGENCY CREW SUPERVISOR) [facility] Calprotectin, fecal 53.8(H) <50.0 (Normal) mcg/g [facility] Comment: Interpretation: Borderline (50.0-120 mcg/g) Test Performed by: [facility] [place] [address] [place] [address] Crtt: Jimena Catalan Ph.D.; CLIA# [id number] Stool 06/17/2024 4:20 PM EMERGENCY CREW SUPERVISOR 06/17/2024 5:02 PM EMERGENCY CREW SUPERVISOR Beata Ambrosio MD LAB BODY FLUIDS AND STOOLS OR [place] [address] [facility] * (ABNORMAL) Urinalysis reflex to microscopic and culture Urine (06/17/2024 12:28 PM EMERGENCY CREW SUPERVISOR) [facility] Color, ur Yellow Yellow Clarity, ur Clear Clear [facility] Specific gravity, ur 1.018 1.003 - 1.030 [facility] pH, urine 5.5 [facility] Comment: Interpretive Data U rine pH is affected by diet, medications, systemic acid-base disturbances, and renal tubular function. pH may affect urinary stone formation. For example, urine pH below 6.0 may help reduce the tendency for calcium phosphate stones and pH greater than 6.0 may reduce the tendency for uric acid stone formation. Source: [facility] Current Interpretive Data was last revised on 2017 Protein, ur ql Trace Negative [facility] Glucose, ur ql Negative Negative [facility] Ketones, ur Negative Negative [facility] Bilirubin, ur Negative Negative [facility] Blood, ur Negative Negative [facility] Urobilinogen, ur <2.0 <2.0 mg/dL [facility] Nitrite, ur Negative Negative [facility] Leukocyte esterase, ur Trace(A) Negative [facility] UA reflex comment Reflex to microscopic UA will be performed. [facility] Urine 06/17/2024 12:2 8 PM EMERGENCY CREW SUPERVISOR 06/17/2024 1:16 PM EMERGENCY CREW SUPERVISOR Beata Ambrosio MD LAB MICROBIOLOGY - GENERAL OR DERABLES Final Result [facility] Department [place] [address] * (ABNORMAL) Urinalysis, microscopic only (06/17/2024 12:28 PM EMERGENCY CREW SUPERVISOR) WBC, ur 0-5 0 - 5 /HPF RBC, ur 0-2 0 - 2 /HPF [facility] Epithelial cells, squamous, ur 1-5 0 - 5 /HPF [facility] Epithelial cells, renal, ur 1-5(A) 0 - 0 /HPF [facility] Bacteria, ur Trace(A) [facility] Mucous, ur Present(A) [facility] Hyaline casts, ur 6-10 0 - 10 /LPF [facility] Culture Reflex Comment Reflex conditions for urine culture (WBC >10) not met. [facility] Urine 06/17/2024 12:2 8 PM EMERGENCY CREW SUPERVISOR 06/17/2024 1:16 PM EMERGENCY CREW SUPERVISOR us Beata Ambrosio MD LAB URINE ORDERABLES Final Re sult MANDY [facility] Department [place] [address] * (ABNORMAL) Cytomegalovirus (CMV) DNA PCR, quantitative Blood (06/16/2024 1:30 PM EMERGENCY CREW SUPERVISOR) Pathologist [facility] CMV DNA Detected( A) [facility] Comment: Interpretive Data: The quantifiable range of this assay is 34 IUnits/mL to 10,000,000 IUnits/mL (1.53 log IUnits/mL to 7.0 log IUnits/mL). Testing was performed by the [facility] CMV Test ([employer] Testing performed at [facility]. Current interpretive data was last revised on 2021. Testing performed by: [facility], [address] [place] [address] CMV DNA IU/mL <34 IUnits/mL [facility]Y Comment:Testing performed by : [facility], [address] [place] [address] CMV DNA log IU/mL <1.53 log IUnits/mL [facility] Comment:Testing performed by : [facility], [address] [place] [address]., [id number] Blood 06/16/2024 1:30 PM EMERGENCY CREW SUPERVISOR 06/16/2024 7:32 PM EMERGENCY CREW SUPERVISOR us Luis Miguel Medina MD LAB MICROBIOLOGY - GENERAL O RDERABLES Final Result MANDY [address] [facility] Department [place] [address] [facility] * eGFR (06/16/2024 1:30 PM EMERGENCY CREW SUPERVISOR) Pathologist [facility] eGFR 71 >=60 mL/min/1. 73 m2 Comment: [...] last reviewed 2021. Blood 06/16/2024 1:30 PM EMERGENCY CREW SUPERVISOR 06/16/2024 4:56 PM EMERGENCY CREW SUPERVISOR Luis Miguel Medina MD LAB BLOOD ORDERABLES Final R esult Performing Organization Address [facility] Co de Phone Number СЕРГЕЙ[address] [place] [address] * Phosphorus (06/16/2024 1:30 PM EMERGENCY CREW SUPERVISOR) Phosphorus, pl 3.9 2.3 - 4.5 mg/dL Blood 06/16/2024 1:30 PM EMERGENCY CREW SUPERVISOR 06/16/2024 4:56 PM EMERGENCY CREW SUPERVISOR Luis Miguel Medina MD LAB BLOOD ORDERABLES Final R esult Performing Organization Address [facility] Co de Phone Number СЕРГЕЙ[address] [place] [address] * Magnesium (06/16/2024 1:30 PM EMERGENCY CREW SUPERVISOR) Magnesium 1.7 1.4 - 2.5 mg/dL Blood 06/16/2024 1:30 PM EMERGENCY CREW SUPERVISOR 06/16/2024 4:56 PM EMERGENCY CREW SUPERVISOR Luis Miguel Medina MD LAB BLOOD ORDERABLES Final R esult MANDY [address] [facility] Department [place] [address] * (ABNORMAL) Comprehensive metabolic panel (06/16/2024 1:30 PM EMERGENCY CREW SUPERVISOR) Sodium 135 135 - 145 mmol/L Potassium, pl 3.6 3.3 - 4.9 mmol/L [facility] Chloride 103 97 - 110 mmol/L [facility] CO2 20(L) 22 - 32 mmol/L [facility] Anion gap 12 2 - 15 mmol/L [facility] BUN 9 6 - 25 mg/dL [facility] Creatinine 0.89 0.60 - 1.10 mg/dL [facility] Glucose 118 70 - 199 mg/dL [facility] Comment: Interpretive Data Fasting glucose >/= 126 [...] 2022. Calcium 8.7 8.5 - 10.3 mg/dL [facility] Bilirubin, total 0.5 0.1 - 1.2 mg/dL [facility] Protein, pl 7.2 6.5 - 8.5 g/dL [facility] Albumin 4.0 3.5 - 5.0 g/dL [facility] Alk phos 118 40 - 130 Units/L [facility] ALT 16 7 - 45 Units/L [facility] AST 28 10 - 45 Units/L [facility] Blood 06/16/2024 1:30 PM EMERGENCY CREW SUPERVISOR 06/16/2024 4:56 PM EMERGENCY CREW SUPERVISOR Luis Miguel Medina MD LAB BLOOD ORDERABLES Final R esult Performing Organization Address [facility]/ZIP Co de Phone Number MANDY [address] [facility] Department [place] [address] * (ABNORMAL) Cytomegalovirus (CMV) DNA PCR, quantitative Blood (06/09/2024 2:00 PM EMERGENCY CREW SUPERVISOR) [facility] CMV DNA Detected( A) [facility] Comment: Interpretive Data: The quantifiable range of this assay is 34 IUnits/mL to 10,000,000 IUnits/mL (1.53 log IUnits/mL to 7.0 log IUnits/mL). Testing was performed by the [facility] CMV Test ([employer] Testing performed at [facility]. Current interpretive data was last revised on 2021. Testing performed by: [facility], [address] [place] [address], [id number] CMV DNA IU/mL <34 IUnits/mL [facility] Comment:Testing performed by : [facility], [address] [facility], [address] CMV DNA log IU/mL <1.53 log IUnits/mL MANDY Comment:Testing performed by : [facility], [address] [place]., [address] Blood 06/09/2024 2:00 PM EMERGENCY CREW SUPERVISOR 06/09/2024 7:40 PM EMERGENCY CREW SUPERVISOR us Notinfile Unknown LAB MICROBIOLOGY - GENERAL ORD ERABLES Final Result Performing Organization Address [facility]/ZIP Co de Phone Number MANDY [address] [facility] [place] [address] [facility] * eGFR (06/09/2024 2:00 PM EMERGENCY CREW SUPERVISOR) [facility] eGFR 82 >=60 mL/min/1. 73 m2 Comment: [...] last reviewed 2021. Blood 06/09/2024 2:00 PM EMERGENCY CREW SUPERVISOR 06/09/2024 3:58 PM EMERGENCY CREW SUPERVISOR us Notinfile Unknown LAB BLOOD ORDERABLES Final Res ult [facility] [address] [facility] Department [place] [address] * Differential, auto (06/09/2024 2:00 PM EMERGENCY CREW SUPERVISOR) Neutrophil abs 2.1 1.5 - 6.5 K/cumm Imm gran abs 0.0 0.0 - 0.1 K/cumm [facility] Lymphocyte abs 1.6 0.8 - 3.3 K/cumm [facility] Monocyte abs 0.4 0.2 - 0.8 K/cumm [facility] Eosinophil abs 0.1 0.0 - 0.5 K/cumm [facility] Basophil abs 0.0 0.0 - 0.1 K/cumm [facility] Neutrophil pct 50.5 % [facility] Comment: Interpretive Data Percent cell count reference ranges are not reported, since discordance with absolute values may lead to misinterpretation of CBC data. Current Interpretive Data was last revised on 2017. Imm gran pct 0.2 % [facility] Comment: Interpretive Data Percent cell count reference ranges are not reported, since discordance with absolute values may lead to misinterpretation of CBC data. Current Interpretive Data was last revised on 2017. Lymphocyte pct 37.7 % [facility] Comment: Interpretive Data Percent cell count reference ranges are not reported, since discordance with absolute values may lead to misinterpretation of CBC data. Current Interpretive Data was last revised on 2017. Monocyte pct 8.7 % [facility] Comment: Interpretive Data Percent cell count reference ranges are not reported, since discordance with absolute values may lead to misinterpretation of CBC data. Current Interpretive Data was last revised on 2017. Eosinophil pct 2.4 % [facility] Comment: Interpretive Data Percent cell count reference ranges are not reported, since discordance with absolute values may lead to misinterpretation of CBC data. Current Interpretive Data was last revised on 2017. Basophil pct 0.5 % [facility] Comment: Interpretive Data Percent cell count reference ranges are not reported, since discordance with absolute values may lead to misinterpretation of CBC data. Current Interpretive Data was last revised on 2017. Blood 06/09/2024 2:00 PM EMERGENCY CREW SUPERVISOR 06/09/2024 3:58 PM EMERGENCY CREW SUPERVISOR us Notinfile Unknown LAB BLOOD ORDERABLES Final Res ult [facility] [address] [facility] Department [place] [address] * (ABNORMAL) CBC with auto differential (06/09/2024 2:00 PM EMERGENCY CREW SUPERVISOR) WBC 4.2 3.8 - 9.9 K/cumm Hgb 9.1(L) 11.9 - 15.5 g/dL [facility] Hct 28.0(L) 35.6 - 45.5 % [facility] Plt 153 150 - 400 K/cumm [facility] MPV 10.0 9.1 - 12.3 fL [facility] RBC 3.28(L) 3.90 - 5.20 M/cumm [facility] MCV 85.4 81.3 - 96.4 fL [facility] MCH 27.7 27.1 - 33.3 pg [facility] MCHC 32.5 32.3 - 35.7 g/dL [facility] RDW CV 14.6 11.1 - 14.9 % [facility] RDW SD 45.4 35.7 - 48.1 fL [facility] NRBC abs 0.00 0.00 - 0.01 K/cumm [facility] Blood 06/09/2024 2:00 PM EMERGENCY CREW SUPERVISOR 06/09/2024 3:58 PM EMERGENCY CREW SUPERVISOR Notinfile Unknown LAB BLOOD ORDERABLES Final Res ult Performing Organization Address [facility] Co de Phone Number [address] [place] [address] * Phosphorus (06/09/2024 2:00 PM EMERGENCY CREW SUPERVISOR) [facility] Phosphorus, pl 3.6 2.3 - 4.5 mg/dL Blood 06/09/2024 2:00 PM EMERGENCY CREW SUPERVISOR 06/09/2024 3:58 PM EMERGENCY CREW SUPERVISOR Notinfile Unknown LAB BLOOD ORDERABLES Final Res ult Performing Organization Address [facility] de Phone Number [address] [place] [address] * Magnesium (06/09/2024 2:00 PM EMERGENCY CREW SUPERVISOR) [facility] Magnesium 1.7 1.4 - 2.5 mg/dL Blood 06/09/2024 2:00 PM EMERGENCY CREW SUPERVISOR 06/09/2024 3:58 PM EMERGENCY CREW SUPERVISOR Result [facility] Notinfile Unknown LAB BLOOD ORDERABLES Final Res ult Performing Organization Address [facility] de Phone Number [address] [address] * (ABNORMAL) Comprehensive metabolic panel (06/09/2024 2:00 PM EMERGENCY CREW SUPERVISOR) [facility] Sodium 130(L) 135 - 145 mmol/L Potassium, pl 3.5 3.3 - 4.9 mmol/L [facility] Chloride 100 97 - 110 mmol/L [facility] CO2 21(L) 22 - 32 mmol/L [facility] Anion gap 9 2 - 15 mmol/L [facility] BUN 10 6 - 25 mg/dL [facility] Creatinine 0.79 0.60 - 1.10 mg/dL [facility] Glucose 115 70 - 199 mg/dL [facility] Comment: Interpretive Data Fasting glucose >/= 126 [...] 2022. Calcium 8.4(L) 8.5 - 10.3 mg/dL [facility] Bilirubin, total 0.6 0.1 - 1.2 mg/dL [facility] Protein, pl 6.9 6.5 - 8.5 g/dL [facility] Albumin 3.8 3.5 - 5.0 g/dL [facility] Alk phos 102 40 - 130 Units/L [facility] ALT 20 7 - 45 Units/L [facility] AST 37 10 - 45 Units/L [facility] Blood 06/09/2024 2:00 PM EMERGENCY CREW SUPERVISOR 06/09/2024 3:58 PM EMERGENCY CREW SUPERVISOR us Notinfile Unknown LAB BLOOD ORDERABLES Final Res ult [facility] [address] [facility] Department [place] [address] * Colonoscopy (01/04/2024 12:25 PM CDT) Anatomical Region Laterality Modality Other Narrative Procedure Note Wang Slade MD - 01/04/2024 12:25 PM CDT ENDOSCOPY LAB Patient Name: Muriel Wade Procedure Date: 01/04/2024 12:25 PM Date of : 1960 Admit Type: Outpatient Age: 63 Gender: Female Attending MD: Wang Slade M.D. Room: 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 On [facility] for past 3 months. Assessmentof disease activity [...] and oxygen saturations were monitored continuously. The [id number] was introduced through the anusand advanced to the terminal ileum. The procedure was performed without difficulty. The patient tolerated the procedure well. The quality of the bowel preparation was good. Findings: Rectal stricture noted on SWAPNIL, which was digitally dilated andpassable by PCF. Perianal exam otherwise notable for skin tag. Patient is status-post ileocolic resection with ileocolicanastomosis. Evidence of [id number] functional end-to-end ileocolic anastomosis, characterized by significant [...] Biopsied. - Significant ulceration and impassable stricturein vishal-terminal ileum just proximal to IC anastomosis. Biopsied. [...] - Patient is just 3 months into [facility], so maystill have further response to this [...] During normal business hours - Please call theNurse Coordinator: [phone]. After hours, evening, nights, weekends and holidays- Please call the hospital coding machine operator at and ask for the GI fellow customer retention specialist. Electronically signed by Wang Slade MD Wang Slade M.D. 01/04/2024 12:55:52 PM Number of Addenda: 0 Note Initiated On: 01/04/2024 12:25 PM CC Letter to: Beata Ambrosio M.D., Luis Miguel Medina M.D. Wang Slade MD ENDOSCOPY PROCEDURES Final Resul t * Hepatitis C antibody (02/23/2023 11:47 AM CDT) Hep C Ab Nonreactive Nonreactive MANDY RIVAS Comment:Antibodies to HCV no t detected. Does NOT exclude the possibility of recent exposure to HCV. Current interpretive data was last revised on 22 Blood 02/23/2023 11:4 7 AM CDT 02/23/2023 2:19 PM CDT us Star Griffiths MD LAB MICROBIOLOGY - GENER AL ORDERABLES Final Result [facility] Department [place] [address] from Last 3 Months or Most Recently Relevant to Health Maintenance Insurance MEDICARE [facility] [place]IC[place] [address] [place] [address] Advance Directives For more information, please contact: [phone] * Full Code (Latest Code Status on [...] 9:03 AM 01/29/2023 4:25 PM Care Teams Nurse Practitioner Adult Relationship Specialty Start Date End Date Sosa Flowers DO PCP - General Family Medicine 01/12/20 Luis Miguel Medina MD [address] [facility] [id number] [place] [address] Surgeon Colon and Rectal Surgery 02/21/23 Beata Ambrosio MD [address] [place] [address] Referring Physician Gastroenterology 02/26/23 Star Griffiths MD [address] [facility] [place] [address] Consulting Physician Gastroenterology 02/27/23 Kingsley Ovalles MD 1 [facility] [place] [address] Consulting Physician Gastroenterology 02/27/23 Lizeth Salazar MD 1 [facility] [place] [address] Consulting Physician Infectious Diseases 07/12/23
--- OUTSIDE RECORDS SUMMARY | 2024-09-04 16:12 | XMS_ITS | Continuity of Care Document ---
Author Organization [facility] Address [address] [facility] [address] [place] [address] Phone Care Team Providers Care Assessment Analyst Name Role Phone Tylor Leong Unavailable Unavailable Procedures Procedure Date Eye Exam & Treatment Optic Nerve Head Eval Refraction Frames Deluxe Progressive Lens, Plastic Progressive Lens, Plastic Frames Deluxe Tax - Medical Eye Exam & Treatment Advance Directives Directive Yes / No Effective Date File Name No Information Encounters Encounter Description Practice Location Reason(s) For Visit Diagnoses Date Provider Providers Copied on Encounter [facility], [id number] [place] [address] [address], [place], [place], [address], [place] tel:[phone] [facility] No Information [address]. [address] [facility] [address], [place], [address], [place]. tel:[phone] [facility], [address] [place] [address] [address], [place], [place], [address], [place] tel:[phone] [facility] No Information 2-[address] [employer]. [address] [facility], [address], [place], [place], [address], [place]. tel:[phone] Consulting Provider: Jeremie [facility], [place], [address]. tel:[phone] [facility], [address] [place] [address] [address], [place], [place], [address], [place] tel:[phone] [facility] [place] No Information 8-[address] [employer]. [address] [facility], [address], [place], [address], [place]. tel:[phone] Referring Provider: Justin Dodge, [address] [place], [place] [address]ate [place] [address], [place], [address]. tel:[phone] lting Provider: Jeremie Monroe [address] [place], [place] [address]ate [facility], [place], [address]. tel:[phone] [facility], [address] [place] [address] [address], [place], [place], [address], [place] tel:[phone] [facility] [place] No Information [address] [employer]. [address] [facility], [facility] [address], [place], [place], [address], [place]. tel:[phone] Referring Provider: Justin Dodge, [address] [place], [place] [address]ate Center [address], [place], [address]. tel:[phone] lting Provider: Jeremie Monroe [address] [place] [address], [place], [address]. tel:[phone] [facility], [address] [place] [address] [address], [place], [place], [address], [place] tel:[phone] [facility] [place] No Information Dec-0 1-[address] [place] MICHELLE [place]. [address] [place], [place] [address]ate Center , [address], [place], [address], [place]. tel:[phone] Family History Family Member Type Diagnosis Age [...]
--- OUTSIDE RECORDS SUMMARY | 2024-09-04 16:12 | XMS_ITS | Patient Health Summary ---
Author Organization [facility] Address [address] [facility] [place] [address] Care Team Providers Care Service Writer Name Role Phone Alfred De Souza MD Primary Care Provider [phone] Note from [facility],non-owned Affiliates and Associated Physician Practices is amultiple site organization consisting of ambulatory clinics and hospital sitesin [place], [place], [place] and [place]. This disclosure is being madepursuant to the Care Everywhere program and may not contain all information available regarding this patient. Last updated 18.[facility] [employer] Allergies * Celecoxib(Swelling) * Sulfa Drugs(Rash) -Medium Criticality Social History Tobacco Use Types Packs/Day Years Used Date Smoking Tobacco: Never Assessed Sex and Gender Information Value Date Recorded Sex Assigned at Not on file Gender Identity Not on file Sexual Orientation Not on file Procedures * SKIN TEST PPD - POINT OF CARE(Performed 01/28/2019) Performed for PPD screening test Results * SKIN TEST PPD - POINT OF CARE (01/28/2019) PPD 0 mm Comment:neg Other MISCELLANEOUS SAMPLE S / Unknown 01/28/2019 Vimal Muñiz DOCTOR ASSISTANT-ON SITE MANAGER LAB - POINT OF CA RE ORDERABLES Care Teams Service Writer Relationship Specialty Start Date End Date Alfred De Souza MD [address] [place] [phone] PCP - General Family Medicine 01/28/19
--- OUTSIDE RECORDS SUMMARY | 2024-09-04 16:12 | XMS_ITS | Clinical Summary ---
Author Organization [facility] Address [address] [facility] [place] [address] Care Team Providers Care Hospice Physician Name Role Phone Alfred De Souza MD Primary Care Provider [phone] Source Comments [facility],non-owned Affiliates and Associated Physician Practices is amultiple site organization consisting of ambulatory clinics and hospital sitesin [place], [place], [place] and [place]. This disclosure is being madepursuant to the Care Everywhere program and may not contain all information available regarding this patient. Last updated 18.[facility] [employer] Allergies Active Allergy Reactions Criticality Noted Date Comments Celecoxib Swelling 01/28/2019 Sulfa Drugs Rash Medium 01/28/2019 Social History Tobacco Use Types Packs/Day Years Used Date Smoking Tobacco: Never Assessed Sex and Gender Information Value Date Recorded Sex Assigned at Not on file Gender Identity Not on file Sexual Orientation Not on file Plan of Treatment Health Maintenance Due Date Last Done Comments BONE DENSITY TESTING 1960 COLOGUARD (AGES 45-75) - COL ON CA SCREENING 1960 COLON MONITORING 1960 COLONOSCOPY - COLON CA SCREENING 1960 CT COLONOGRAPHY - COLON CA SCREENING 1960 Colorectal Cancer Screening 1960 FIT - COLON CA SCREENING 1960 FLEX SIG - COLON CA SCREENING 1960 LIPID TESTING 1960 MAMMOGRAM 1960 HEPATITIS C SCREENING 04/23/1976 DTAP/TDAP/TD VACCINES (1 - Tdap) 1977 PNEUMOCOCCAL VACCINE 50+ (1 of 1 - PCV) 2008 ZOSTER VACCINE (1 of 2) 2008 COVID-19 VACCINE (1 - 2023-2 5 season) 2024 INFLUENZA VACCINE (#1) 2024 DEPRESSION SCREENING 07/23/2024 Respiratory Syncytial Virus (RSV) Vaccine Pt: or over 60 yrs (1 - 1-dose 75+ series) 2033 HEPATITIS B VACCINE Aged Out No longe r eligible based on patient's age to complete this topic HIB VACCINE Aged Out No longer eligi ble based on patient's age to complete this topic HPV VACCINE Aged Out No longer eligi ble based on patient's age to complete this topic MENINGOCOCCAL (Group B) VACCINE Aged Out No longer eligible based on patient's age to complete this topic MENINGOCOCCAL VACCINE Aged Out No christal miguel eligible based on patient's age to complete this topic Care Teams Hospice Physician Relationship Specialty Start Date End Date Alfred De Souza MD [address] [place] [address] PCP - General Family Medicine 01/28/19
--- OUTSIDE RECORDS SUMMARY | 2024-09-04 16:12 | XMS_ITS | Referral Summary ---
Author Organization [facility] Address [address] [place] [address] Care Team Providers Care Aged Or Disabled Carer Name Role Phone Alfred De Souza MD Primary Care Provider [phone] Source Comments [facility],non-owned Affiliates and Associated Physician Practices is amultiple site organization consisting of ambulatory clinics and hospital sitesin [place], [place], [place] and [place]. This disclosure is being madepursuant to the Care Everywhere program and may not contain all information available regarding this patient. Last updated 18.[facility] [employer] Allergies Active Allergy Reactions Criticality Noted Date Comments Celecoxib Swelling 01/28/2019 Sulfa Drugs Rash Medium 01/28/2019 Social History Tobacco Use Types Packs/Day Years Used Date Smoking Tobacco: Never Assessed Sex and Gender Information Value Date Recorded Sex Assigned at Not on file Gender Identity Not on file Sexual Orientation Not on file Plan of Treatment Not on file Administered Medications Care Teams Aged Or Disabled Carer Relationship Specialty Start Date End Date Alfred De Souza MD [address] [place] [address] PCP - General Family Medicine 01/28/19
--- OUTSIDE RECORDS SUMMARY | 2024-09-04 16:12 | XMS_ITS | Clinical Summary ---
Author Organization [facility] Address [address] [place] [place] [address] Care Team Providers Care Cooler Room Worker Name Role Phone Sosa Flowers DO Primary Care Provider [phone] Allergies Active Allergy Reactions Criticality Noted Date Comments Celecoxib Swelling Medium 01/28/2019 Clindamycin Rash Medium 10/21/2021 Fentanyl Nausea and Vomiting Low 10/18/2022 Latex Rash Medium 08/20/2018 Sulfa (Sulfonamide Antibiotics) Rash Medium 07/24 Medications atorvastatin (LIPITOR) 10 mg tablet 2 Active omeprazole (PriLOSEC) 20 mg Capsule, Delayed Release(E.C.) 2 Active cholestyramine, with sugar, (QUESTRAN) 4 gram Powder in Packet MIX 1 PACKET WITH LIQUID AND DRINK 2 TIMES A DAY WITH MEALS 0 Active azelastine (ASTELIN) 137 mcg/actuation nasal spray USE 1 SPRAY IN EACH NOSTRIL TWICE DAILY DIRECTED 2 Active levothyroxine 25 mcg tablet 1 Active CALCIUM CARBONATE-VITAMIN D3 ORAL Take by mouth. Activ e budesonide (PULMICORT RESPULE) 0.5 mg/2 mL Suspension for Nebulization 3 Active infliximab-dyyb (INFLECTRA IV) Inflectra 500 mg fusion Active cyanocobalamin, vitamin B-12, 1,000 mcg Capsule Take by mouth. Active potassium chloride (KLOR-CON) 10 mEq Extended Release tablet Take 1 Tablet (10 mEq) by mouth 2 times daily. 90 Tablet 2 3 Active Active Problems Problem Noted Date Diagnosed Date Vitamin B12 deficiency (non anemic) 12/14/2021 Chronic anemia 11/02/2021 Family History Medical History Relation Name Comments Heart Disease Father Relation Name Status Comments Brother 1 Alive Brother 2 Brother 3 Daughter 1 Alive Daughter 2 Alive Father Mother Sister 1 Sister 2 Son Alive Social History Tobacco Use Types Packs/Day Years Used Date Smoking Tobacco: Former Tobacco Cessation:Counseling Given: Not Answered Alcohol Use Standard Drinks/Week Comments Yes 0 (1 standard drink = 0.6 oz pur e alcohol) Comments Unknown Sex and Gender Information Value Date Recorded Sex Assigned at Not on file Legal Sex Female 11:03 AM PUBLIC SAFETY DISPATCHER Gender Identity Not on file Sexual Orientation Not on file Last Filed Vital Signs Vital Sign Reading Time Taken Comments Blood Pressure 122/62 10/18/2022 12:59 PM CDT Pulse 94 10/18/2022 12:59 PM CDT Temperature 36.8 C (98.3 F) 10/18/2022 12:59 PM CDT Respiratory Rate 10 10/18/2022 12:59 PM CDT Oxygen Saturation 100% 10/18/2022 12:59 PM CDT Inhaled Oxygen Concentration - - Weight 50.4 kg (111 lb 1.6 oz) 08/16/2022 2:22 P M PUBLIC SAFETY DISPATCHER Height 152.4 cm (5') 11/02/2021 2:52 PM CDT Body Mass Index 21.7 11/02/2021 2:52 PM CDT Plan of Treatment Health Maintenance Due Date Last Done Comments DTAP/TDAP/TD VACCINES (1 - Tdap) 1977 BREAST CANCER SCREENING 1998 FIT-DNA Q 3 years 2003 FIT/FOBT Q 1 year 2003 Flex Sig/CT Colonography Q 5 years 2003 ZOSTER VACCINE (2 of 2) 04/09/2019 02/12/2019 PNEUMOCOCCAL VACCINE 65+ YEA RS (2 of 2 - PPSV23) 01/02/2020 01/01/2019 OSTEOPOROSIS SCREENING 2023 INFLUENZA VACCINE (#1) 2024 05/01/2019, 2017 COLORECTAL SCREENING 05/18/2032 05/18/2022, 05/18/2022, 09/16/2018 Colorectal Cancer Screening 05/18/2032 RSV VACCINE (60+ or ) (1 - 1-dose 75+ series) [address] [place] [address] CHOICE [phone] Care Teams Cooler Room Worker Relationship Specialty Start Date End Date Sosa Flowers DO [address] [place] [phone] PCP - General Family Practice 11/02/21
== END 2024-09-04 16:04 | disposition home or self-care (01) ==
PROVIDERS: PCP Family Medicine; Visit Provider Physician Assistant Surgical
DX: M79.645 Pain in left finger(s) (principal)
CPT/HCPCS: 73120

== ENCOUNTER 2024-12-16 11:48 | Outpatient (CLI) | payer MEDICARE, SELFPAY ==
--- NOTE | ~2024-12-16 | XR_ITS ---
HISTORY: Chronic knee pain COMPARISON: None TECHNIQUE: 4 views of the left knee were performed FINDINGS: No acute or subacute fracture, erosion, lytic or sclerotic lesion. Medial tibiofemoral joint space narrowing is identified. No suprapatellar joint effusion is identified. The infrapatellar joint space is clear. Chondrocalcinosis is identified within the tibiofemoral joint space IMPRESSION: Degenerative disease, without acute fracture. Reviewed, dictated and finalized at location A.
--- NOTE | ~2024-12-16 | XR_ITS ---
XR elbow LT min 3V 12/16/2024 12:32 Indication: Left elbow pain Procedure: 4 views left elbow Comparison: No prior studies for comparison. Findings: There is anatomic alignment. No fracture, subluxation or dislocation. No joint effusion. No foreign bodies. Impression: 1: No significant bone or joint abnormality. Reviewed, dictated and finalized at location A. Impression: 1: No significant bone or joint abnormality.
== END 2024-12-16 11:49 | disposition home or self-care (01) ==
LOC: GOSHIMG 11:49
PROVIDERS: PCP Family Medicine; Visit Provider Family Medicine
DX: M25.522 Pain in left elbow (principal); M17.12 Unilateral primary osteoarthritis, left knee
CPT/HCPCS: 73080; 73564

== ENCOUNTER 2025-01-15 10:24 | Outpatient (CLI) | payer MEDICARE, SELFPAY ==
[2025-01-15 12:50] LABS: Cholesterol 182 mg/dL (0-200); HDL Direct 72 mg/dL; Triglycerides 159 mg/dL (<150)
[2025-01-15 13:02] LABS: LDL Cholesterol Direct 56 mg/dL
== END 2025-01-15 10:25 | disposition home or self-care (01) ==
LOC: ANHGOSHLAB 10:25
PROVIDERS: PCP Family Medicine; Visit Provider Family Medicine
DX: E78.5 Hyperlipidemia, unspecified (principal); I10 Essential (primary) hypertension; Z79.899 Other long term (current) drug therapy
CPT/HCPCS: 36415; 80061

== ENCOUNTER 2025-01-15 10:37 | Outpatient (CLI) | payer MEDICARE, SELFPAY ==
--- NOTE | ~2025-01-15 | XR_ITS ---
Clinical Indication: Cough PA and lateral views of the chest: Comparison: 04/24/2024 Findings: Right-sided PICC line in satisfactory position. The lungs are clear, without evidence of fo roger consolidation or pleural effusion. Cardiomediastinal silhouette is within normal limits. Probabl e mild chronic wedging deformities of T6 and T7. Impression: Clear lungs. Right-sided PICC line in place. Reviewed, dictated and finalized at location M. Impression: Clear lungs. Right-sided PICC line in place.
== END 2025-01-15 10:38 | disposition home or self-care (01) ==
LOC: GOSHIMG 10:37
PROVIDERS: PCP Family Medicine; Visit Provider Family Medicine
DX: R05.9 Cough, unspecified (principal)
CPT/HCPCS: 71046

== ENCOUNTER 2025-04-16 13:17 | Outpatient (CLI) | payer MEDICARE, SELFPAY ==
--- OUTSIDE RECORDS SUMMARY | 2008-07-06 05:30 | XMS_ITS | Continuity of Care Document ---
Author Organization [facility] [place] Address [address] [place] [address] Phone Care Team Providers Care Snag Grinder Name Role Phone Tylor Leong Unavailable Unavailable Procedures Procedure Date Eye Exam & Treatment Optic Nerve Head Eval Refraction Frames Deluxe Progressive Lens, Plastic Progressive Lens, Plastic Frames Deluxe Tax - Medical Eye Exam & Treatment Advance Directives Directive Yes / No Effective Date File Name No Information Encounters Encounter Description Practice Location Reason(s) For Visit Diagnoses Date Provider Providers Copied on Encounter [facility], [id number] [place] [address] [address], [place], [place], [id number], [place] tel:[phone] SEC [facility] No Information 5200 8 Dang Mancusol. [address] [facility] [address], [place], [address], [place]. tel:[phone] [facility], [address] [place] [address] [address], [place], [place], [address], [place] tel:[phone] SEC [facility] No Information 2-200 8 [facility] [employer]. [address] [facility], [address], [place], [place], [address], [place]. tel:[phone] Consulting Provider: Jeremie Monroe [facility], [place], [address]. tel:[phone] [facility], [address] [place] [address] [address], [place], [place], [address], [place] tel:[phone] [facility] [place] No Information 8-200 8 [facility] [employer]. [address] [facility], [address], [place], [address], [place]. tel:[phone] Referring Provider: Justin Dodge, [address] [place], [place] [address]ate [place] [address], [place], [address]. tel:[phone] lting Provider: Jeremie Monroe [address] [place], [place] [address]ate [facility], [place], [address]. tel:[phone] [facility], [address] [place] [address] [address], [place], [place], [id number], [place] tel:[phone] [facility] [place] No Information 3200 8 [facility] [employer]. [address] [facility], [facility] [address], [place], [place], [address], [place]. tel:[phone] Referring Provider: Justin Dodge, [address] [place], [place] [address]ate Center [address], [place], [address]. tel:[phone] lting Provider: Jeremie Monroe [address] [place] [address], [place], [address]. tel:[phone] [facility], [address] [place] [address] [address], [place], [place], [id number], [place] tel:[phone] [facility] [place] No Information Dec-0 1-200 7 [place] MICHELLE Anderson. [address] [place], [place] [address]ate Center , [address], [place], [address], [place]. tel:[phone] Family History Family Member Type Diagnosis Age [...]
--- NOTE | ~2025-04-16 | XR_ITS ---
Examination: XR chest 2V Clinical History: R05.9 - Cough, unspecified, DECREASED BREATH SOUNDS RT SIDE Comparison: 01/15/2025 Technique: PA and Lateral Findings: Right PICC. Cardiomediastinal silhouette normal size and configuration. Lungs clear. No acute bony abnormality. Osteopenia. IMPRESSION: 1. No acute cardiopulmonary findings. Reviewed, dictated and finalized at location R.
--- OUTSIDE RECORDS SUMMARY | 2025-04-16 16:07 | XMS_ITS | Encounter Summary ---
Author Organization [facility] Address [address] [place] [address] Phone Care Team Providers Care Tester Vibrator Equipment Name Role Phone Sosa Flowers DO Primary Care Provider [phone] Luis Miguel Medina MD Unavailable +[phone] Beata Ambrosio MD Unavailable [phone] Star Griffiths MD Unavailable [phone] Kingsley Ovalles MD Unavailable [phone] Nory JacquesW Unavailable +[phone] Andreia Kidd Unavailable Unavailable Lizeth Salazar MD Unavailable [phone] Sangeeta Cruz RN Unavailable [phone] Kenroy Hicks [facility] Unavailable Unavailable Kenroy Hicks jen Unavailable Unavailable Evette Mccloud RN Unavailable Livier Gris Odell MD Unavailable [phone] Encounter Details Date Type Department Care Team [...] on file Legal Sex Female 12:20 AM SEMICONDUCTOR PROCESSING GROUP LEADER Gender Identity Female 04/17/2021 10:27 AM CDT [...] Time Diarrhea 08/16/2023 08/18/2023 08/22/2023 9:17 AM SEMICONDUCTOR PROCESSING GROUP LEADER Exposure, Contact Comment:Patient exposed to C. Auris patient on 09/27/2023. Please contact infection prevention for instructions on obtaining surveillance cultures. 09/28/2023 09/28/2023 10/26/2023 3:05 AM C DT C. difficile suspected 06/13/2024 06/17/202406/14 3:05 AM SEMICONDUCTOR PROCESSING GROUP LEADER C. difficile suspected 06/17/2024 06/17/202406/17 6:54 PM SEMICONDUCTOR PROCESSING GROUP LEADER documented as of this encounter Care Teams Tester Vibrator Equipment Relationship Specialty Start Date End Date KendrickbarrysissySosa JannetteDO PCP - General Family Medicine 01/12/20 Gris Mccain MD [address] [facility] GASTR[facility]Y, [facility] [address] [place] [address] PCP - Home Infusion Attending Gastroenterology 12/12/24 Luis Miguel Medina MD [address] [facility] [phone] [place] [address] Surgeon Colon and Rectal Surgery 02/21/23 Beata Ambrosio MD [address] [place] [address] Referring Physician Gastroenterology 02/26/23 Star Griffiths MD 1 [facility] [place] [address] Consulting Physician Gastroenterology 02/27/23 Kingsley Ovalles MD 1 [facility] [place] [address] Consulting Physician Gastroenterology 02/27/23 Nory Jacques, [facility] [address] [facility] ([facility]) Mailstop [phone] [place] [address] SHOP Outpatient Senior Sql Server Database Developer 06/01/23 07/01/23 Andreia Kidd RMA Surgical Prehabilitation and Readiness (SPAR) Coordinator 07/09/23 08/20/23 Lizeth Salazar MD Consulting Physician Infectious Diseases 07/12/23 Sangeeta Cruz, RN [address] [facility] [address] [place] [address] SHOP Outpatient Senior Sql Server Database Developer 10/01/23 10/28/23 Kenroy Hicks [facility] Home Infusion Pharmacist Pharmacy 12/02/24 Kenroy Hicks [facility] Pharmacist Pharmacy 12/02/24 03/22/25 Evette Mccloud, JOSÉ Home Infusion Nursing 12/05/24 documented as of this encounter
--- OUTSIDE RECORDS SUMMARY | 2025-04-16 16:07 | XMS_ITS | Encounter Summary ---
Author Organization [facility] Address [address] [place] [address] Phone Care Team Providers Care Freight Dispatcher Name Role Phone Sosa Flowers DO Primary Care Provider [phone] Luis Miguel Medina MD Unavailable +[phone] Beata Ambrosio MD Unavailable +[phone] Star Griffiths MD Unavailable +[phone] Kingsley Ovalles MD Unavailable [phone] Nory JacquesW Unavailable +[phone] Andreia Kidd Unavailable Unavailable Lizeth Salazar MD Unavailable [phone] Sangeeta Cruz RN Unavailable [phone] Kenroy Hicks [facility] Unavailable Unavailable Kenroy Hicks jen Unavailable Unavailable Evette Mccloud RN Unavailable Livier Gris Odell MD Unavailable [phone] Encounter Details Date Type Department Care Team [...] on file Legal Sex Female 12:20 AM SOCIAL WORK SUPERVISOR Gender Identity Female 04/17/2021 10:27 AM [...] Time Diarrhea 08/16/2023 08/18/2023 08/22/2023 9:17 AM SOCIAL WORK SUPERVISOR Exposure, Contact Comment:Patient exposed to C. Auris patient on 09/27/2023. Please contact infection prevention for instructions on obtaining surveillance cultures. 09/28/2023 09/28/2023 10/26/2023 3:05 AM C DT C. difficile suspected 06/13/2024 06/17/202406/14 3:05 AM SOCIAL WORK SUPERVISOR C. difficile suspected 06/17/2024 06/17/202406/17 6:54 PM SOCIAL WORK SUPERVISOR documented as of this encounter Care Teams Freight Dispatcher Relationship Specialty Start Date End Date Sosa Flowers DO PCP - General Family Medicine 01/12/20 Gris Mccain MD [address] [facility] GASTROENTEROLOGY, [address] [place] [address] PCP - Home Infusion Attending Gastroenterology 12/12/24 Luis Miguel Medina MD [address] [facility] [phone] [place] [address] Surgeon Colon and Rectal Surgery 02/21/23 Beata Ambrosio MD [address] [place] [address] Referring Physician Gastroenterology 02/26/23 Star Griffiths MD 1 [facility] [place] [address] Consulting Physician Gastroenterology 02/27/23 Kingsley Ovalles MD 1 [facility] [place] [address] Consulting Physician Gastroenterology 02/27/23 Nory Jacques LCSW [address] [facility] ([facility] Mailstop [phone] [place] [address] SHOP Outpatient Cafe Associate 06/01/23 07/01/23 Andreia Kidd RMA Surgical Prehabilitation and Readiness (SPAR) Coordinator 07/09/23 08/20/23 Lizeth Salazar MD Consulting Physician Infectious Diseases 07/12/23 Sangeeta Cruz, RN [address] [facility] [address] [place] [address] SHOP Outpatient Cafe Associate 10/01/23 10/28/23 Kenroy Hicks [facility] Home Infusion Pharmacist Pharmacy 12/02/24 Kenroy Hicks [facility] Pharmacist Pharmacy 12/02/24 03/22/25 Evette Mccloud, RN Home Infusion Nursing 12/05/24 documented as of this encounter
--- OUTSIDE RECORDS SUMMARY | 2025-04-16 16:07 | XMS_ITS | Encounter Summary ---
Author Organization [facility] Address [address] [place] [address] Phone Care Team Providers Care Health Insurance Assessor Name Role Phone Kendrickbarrysissy Sosa Bhatia DO Primary Care Provider [phone] Luis Miguel Medina MD Unavailable [phone] Beata Ambrosio MD Unavailable [phone] Star Griffiths MD Unavailable [phone] Kingsley Ovalles MD Unavailable [phone] Lizeth Salazar MD Unavailable [phone] Kenroy Hicks [facility] Unavailable Unavailable Kenroy Hicks [facility] Unavailable Unavailable Evette Mccloud RN Unavailable Livier Gris Odell MD Unavailable [phone] Encounter Details Date Type Department Care Team (Late st Contact Info) Description 01/14/2024 Orders Only [facility] Scanning, Provider Social History Tobacco Use Types Packs/Day Years Used Date Smoking Tobacco: Former Cigarettes 0.5 15 1 979 - 1993 Passive Smoke Exposure: Past Smokeless Tobacco: Never Comments:Quit 1993 Alcohol Use Standard Drinks/Week Comments No 0 (1 standard drink = 0.6 oz pur e alcohol) OASIS D0700: Social Isolation Answer Da te Recorded Frequency of experiencing loneliness or isolatio n Never 01/08/2024 [facility] Utilities Answer Date Recorded In the past 12 months has th e electric, gas, oil, or water company threatened to shut off services in your home? No 10/02/2023 Social Connection and Isolation Panel Answer Date Recorded In a typical week, how many times do you talk on the phone with family, friends, or neighbors? More than three times a week 10/02/2023 How often do you get togethe r with friends or relatives? More than three times a week 10/02/2023 How often do you attend chur ch or jew services? Never 10/02/2023 Do you belong to any clubs o r organizations such as episcopal groups, unions, fraternal or athletic groups, or school groups? No 10/02/2023 How often do you attend meet ings of the clubs or organizations you belong to? Never 10/02/2023 Are you , , di vorced, , never , or living with a partner? 10/02/2023 AUDIT-C Answer Date Recorded Q1: How often do you have a drink containing alcohol? Never 01/04/2024 Q2: How many drinks containi ng alcohol do you have on a typical day when you are drinking? Patient does not drink Q3: How often do you have si x or more drinks on one occasion? Never 01/04/2024 Overall Financial Resource Strain (CARDIA) Answe r [...] the money to buy more. Never true 10/02/19 24 Within the past 12 months, t he food you bought just didn't last and you didn't have money to get more. Never true 10/02/2023 PRAPARE - Transportation Answer Date Re corded [...] making you feel afraid or unsafe? Denies 10/16/2023 Comments No Sex and Gender Information Value Date Recorded Sex Assigned at Not on file Legal Sex Female 12:20 AM ECONOMICS LECTURER Gender Identity Female 04/17/2021 10:27 AM CDT Sexual Orientation Straight 04/17/2021 10 :27 AM CDT documented as of this encounter Plan of Treatment Not on file documented as of this encounter Procedures Procedure Name Priority Date/Time Associated Diagnosis Comments SCAN - RADIOLOGY/IMAGING 01/14/2024 documented in this encounter Results * SCAN - RADIOLOGY/IMAGING (01/14/2024) Anatomical Region Laterality Modality Other us Provider Scanning Final Result documented in this encounter Visit Diagnoses Not on filedocumented in this encounter Additional Health Concerns Infection Onset Date Last Indicated Resolved Time C. difficile suspected 06/13/2024 06/17/202406/14 3:05 AM ECONOMICS LECTURER C. difficile suspected 06/17/2024 06/17/202406/17 6:54 PM ECONOMICS LECTURER documented as of this encounter Care Teams Health Insurance Assessor Relationship Specialty Start Date End Date Sosa Flowers DO PCP - General Family Medicine 01/12/20 Gris Mccain MD [address] [facility] GASTROENTEROLOGY, [facility] [address], [place] [address] PCP - Home Infusion Attending Gastroenterology 5/23/25 Luis Miguel Medina MD [address] [facility] [phone] [place] [address] Surgeon Colon and Rectal Surgery 02/21/23 Beata Ambrosio MD [address] [place] [address] Referring Physician Gastroenterology 02/26/23 Star Griffiths MD [address] [facility] [place] [address] Consulting Physician Gastroenterology 02/27/23 Kingsley Ovalles MD [address] [facility] [place] [address] Consulting Physician Gastroenterology 02/27/23 Lizeth Salazar MD [address] [facility] [place] [address] Consulting Physician Infectious Diseases 07/12/23 Kenroy Hicks jen Home Infusion Pharmacist Pharmacy 12/02/24 Kenroy Hicks [facility] Pharmacist Pharmacy 12/02/24 03/22/25 Evette Mccloud, JOSÉ Home Infusion Nursing 12/05/24 documented as of this encounter
--- OUTSIDE RECORDS SUMMARY | 2025-04-16 16:07 | XMS_ITS | Encounter Summary ---
Author Organization [facility] Address [address] [place] [address] Phone Care Team Providers Care Family Readiness Support Assistant Name Role Phone KendrickbarrysissySosa DO Primary Care Provider [phone] Luis Miguel Medina MD Unavailable [phone] Beata Ambrosio MD Unavailable [phone] Star Griffiths MD Unavailable [phone] Kingsley Ovalles MD Unavailable [phone] Lizeth Salazar MD Unavailable [phone] Kenroy Hicks [facility] Unavailable Unavailable Kenroy Hicks [facility] Unavailable Unavailable Evette Mccloud RN Unavailable Livier Gris Odell MD Unavailable [phone] Encounter Details Date Type Department Care Team (Late st Contact Info) Description 11/07/2023 Orders Only [facility] Scanning, [...] of experiencing loneliness or isolatio n Never 11/09/2023 [facility] Utilities Answer Date Recorded In the past [...] often do you attend chur ch or episcopalian services? Never 10/02/2023 Do you belong to any clubs o r organizations such as uatsdin groups, unions, fraternal or athletic groups, or school groups? No 10/02/2023 How often do you attend meet ings of the clubs or organizations you belong to? Never 10/02/2023 Are you , , di vorced, , never , or living with a partner? 10/02/2023 AUDIT-C Answer Date Recorded Q1: How often do you have a drink containing alcohol? Never 10/18/2023 Q2: How many drinks containi ng alcohol do you have on a typical day when you are drinking? Patient does not drink Q3: How often do you have si x or more drinks on one occasion? Never 10/18/2023 Overall Financial Resource Strain (CARDIA) Answe r [...] place to sleep or slept in a residential (including now)? No 10/02/2023 Personal Safety Answer Date Recorded Have you ever been in or are you currently in a harmful physical or emotional relationship or is someone making you feel afraid or unsafe? Denies 10/16/2023 Comments No Sex and Gender Information Value Date Recorded Sex Assigned at Not on file Legal Sex Female 12:20 AM LINE PREP COOK Gender Identity Female 04/17/2021 10:27 AM CDT Sexual Orientation Straight 04/17/2021 10 :27 AM CDT documented as of this encounter Plan of Treatment Not on file documented as of this encounter Procedures Procedure Name Priority Date/Time Associated Diagnosis Comments SCAN - RADIOLOGY/IMAGING 11/07/2023 documented in this encounter Results * SCAN - RADIOLOGY/IMAGING (11/07/2023) Anatomical Region Laterality Modality Other us Provider Scanning Edited Result - Final documented in this encounter Visit Diagnoses Not on filedocumented in this encounter Additional Health Concerns Infection Onset Date Last Indicated Resolved Time C. difficile suspected 06/13/2024 06/17/202406/14 3:05 AM LINE PREP COOK C. difficile suspected 06/17/2024 06/17/202406/17 6:54 PM LINE PREP COOK documented as of this encounter Care Teams Family Readiness Support Assistant Relationship Specialty Start Date End Date Sosa Flowers DO PCP - General Family Medicine 01/12/20 Gris Mccain MD [address] [facility]] GASTROENTEROLOGY, [address] [address] PCP - Home Infusion Attending Gastroenterology 12/12/24 Luis Miguel Medina MD [address] [facility] [phone] [place] [address] Surgeon Colon and Rectal Surgery 02/21/23 Beata Ambrosio MD [address] [place] [address] Referring Physician Gastroenterology 02/26/23 Star Griffiths MD 1 [facility] [place] [address] Consulting Physician Gastroenterology 02/27/23 Kingsley Ovalles MD 1 [facility] [place] [address] Consulting Physician Gastroenterology 02/27/23 Lizeth Salazar MD 1 [facility] [place] [address] Consulting Physician Infectious Diseases 07/12/23 Kenroy Hicks [facility] Home Infusion Pharmacist Pharmacy 12/02/24 Kenroy Hicks [facility] Pharmacist Pharmacy 12/02/24 03/22/25 Evette Mccloud, JOSÉ Home Infusion Nursing 12/05/24 documented as of this encounter
--- OUTSIDE RECORDS SUMMARY | 2025-04-16 16:07 | XMS_ITS | Encounter Summary ---
Author Organization [facility] Address [address] [place] [address] Phone Care Team Providers Care Printing Pressman Name Role Phone Alfred De Souza MD Primary Care Provider [phone] Sosa Flowers DO Primary Care Provider + [phone] Luis Miguel Medina MD Unavailable [phone] Beata Ambrosio MD Unavailable [phone] Star Griffiths MD Unavailable [phone] Kingsley Ovalles MD Unavailable [phone] Nory JacquesW Unavailable +[phone] Andreia Kidd Unavailable Unavailable Lizeth Salazar MD Unavailable [phone] Sangeeta Cruz RN Unavailable [phone] Kenroy Hicks RPh Unavailable Unavailable Kenroy Hicks RPjen Unavailable Unavailable Evette Mccloud RN Unavailable Livier Gris Odell MD Unavailable [phone] Encounter Details Date Type Department Care Team [...] on file Legal Sex Female 12:20 AM LABELER Gender Identity Female 04/17/2021 10:27 AM CDT [...] Time Diarrhea 08/16/2023 08/18/2023 08/22/2023 9:17 AM LABELER Exposure, Contact Comment:Patient exposed to C. Auris patient on 09/27/2023. Please contact infection prevention for instructions on obtaining surveillance cultures. 09/28/2023 09/28/2023 10/26/2023 3:05 AM C DT C. difficile suspected 06/13/2024 06/17/202406/14 3:05 AM LABELER C. difficile suspected 06/17/2024 06/17/202406/17 6:54 PM LABELER documented as of this encounter Care Teams Printing Pressman Relationship Specialty Start Date End Date Alfred De Souza MD [address] [place] [address] PCP - General 03/03/15 01/11/20 Sosa Flowers DO [address] [place] [address] PCP - General Family Medicine 01/12/20 Gris Mccain MD [address] [facility] GASTR[facility]ENTEROLOGY, [facility] [address] [place] [address] PCP - Home Infusion Attending Gastroenterology 12/12/24 Luis Miguel Medina MD [address] [facility] [phone] [place] [address] Surgeon Colon and Rectal Surgery 02/21/23 Beata Ambrosio MD [address] [place] [address] Referring Physician Gastroenterology 02/26/23 Star Griffiths MD 1 [facility] [place] [address] Consulting Physician Gastroenterology 02/27/23 Kingsley Ovalles MD 1 [facility] [place] [address] Consulting Physician Gastroenterology 02/27/23 Nory Jacques, HARDWARE TEST ENGINEER [address] [facility] ([facility] Mailstop [phone] [place] [address] SHOP Outpatient Certified Green Building Engineer 06/01/23 07/01/23 Andreia Kidd RMA Surgical Prehabilitation and Readiness (SPAR) Coordinator 07/09/23 08/20/23 Lizeth Salazar MD Consulting Physician Infectious Diseases 07/12/23 Sangeeta Cruz, RN [address] [facility] [address] [place] [address] SHOP Outpatient Certified Green Building Engineer 10/01/23 10/28/23 Kenroy Hicks [facility] Home Infusion Pharmacist Pharmacy 12/02/24 Kenroy Hicks [facility] Pharmacist Pharmacy 12/02/24 03/22/25 Evette Mccloud, RN Home Infusion Nursing 12/05/24 documented as of this encounter
--- OUTSIDE RECORDS SUMMARY | 2025-04-16 16:07 | XMS_ITS | Encounter Summary ---
Author Organization [facility] Address [address] [place] [address] Phone Care Team Providers Care Varying Exceptionalities Teacher Name Role Phone Sosa Flowers DO Primary Care Provider [phone] Luis Miguel Medina MD Unavailable +[phone] Beata Ambrosio MD Unavailable +[phone] Star Griffiths MD Unavailable [phone] Kingsley Ovalles MD Unavailable [phone] Nory JacquesW Unavailable +[phone] Andreia Kidd Unavailable Unavailable Lizeth Salazar MD Unavailable [phone] Sangeeta Cruz RN Unavailable [phone] Kenroy Hicks [facility] Unavailable Unavailable Kenroy Hicks jen Unavailable Unavailable Evette Mccloud RN Unavailable Livier Gris Odell MD Unavailable [phone] Encounter Details Date Type Department Care Team [...] on file Legal Sex Female 12:20 AM MANAGER UNIVERSAL Gender Identity Female 04/17/2021 10:27 AM CDT [...] Time Diarrhea 08/16/2023 08/18/2023 08/22/2023 9:17 AM MANAGER UNIVERSAL Exposure, Contact Comment:Patient exposed to C. Auris patient on 09/27/2023. Please contact infection prevention for instructions on obtaining surveillance cultures. 09/28/2023 09/28/2023 10/26/2023 3:05 AM C DT C. difficile suspected 06/13/2024 06/17/202406/14 3:05 AM MANAGER UNIVERSAL C. difficile suspected 06/17/2024 06/17/202406/17 6:54 PM MANAGER UNIVERSAL documented as of this encounter Care Teams Varying Exceptionalities Teacher Relationship Specialty Start Date End Date Sosa Flowers DO PCP - General Family Medicine 01/12/20 Gris Mccain MD [address] [facility] IM GASTROENTEROLOGY, [facility] [address] [place] [address] PCP - Home Infusion Attending Gastroenterology 12/12/24 Luis Miguel Medina MD [address] [facility] [phone] [place] [address] Surgeon Colon and Rectal Surgery 02/21/23 Beata Ambrosio MD [address] [place] [address] Referring Physician Gastroenterology 02/26/23 Star Griffiths MD 1 [facility] [place] [address] Consulting Physician Gastroenterology 02/27/23 Kingsley Ovalles MD 1 [facility] [place] [address] Consulting Physician Gastroenterology 02/27/23 Nory Jacques, CONDOMINIUM MANAGER 45[address] [facility] ([facility] [phone] [place] [address] SHOP Outpatient Jukebox Checker 06/01/23 07/01/23 Andreia Kidd RMA Surgical Prehabilitation and Readiness (SPAR) Coordinator 07/09/23 08/20/23 Lizeth Salazar MD Consulting Physician Infectious Diseases 07/12/23 Sangeeta Cruz, RN [address] [facility] [address] [place] [address] SHOP Outpatient Jukebox Checker 10/01/23 10/28/23 Kenroy Hicks [facility] Home Infusion Pharmacist Pharmacy 12/02/24 Kenroy Hicks [facility] Pharmacist Pharmacy 12/02/24 03/22/25 Evette Mccloud, JOSÉ Home Infusion Nursing 12/05/24 documented as of this encounter
--- OUTSIDE RECORDS SUMMARY | 2025-04-16 16:07 | XMS_ITS | Encounter Summary ---
Author Organization [facility] Healthcare Address [address] [place] [address] Care Team Providers Care Freelance Art Director Name Role Phone Sosa Flowers DO Primary Care Provider [phone] Luis Miguel Medina MD Unavailable +[phone] Beata Ambrosio MD Unavailable [phone] Star Griffiths MD Unavailable [phone] Kingsley Ovalles MD Unavailable Andreia Kidd Unavailable Unavailable Lizeth Salazar MD Unavailable [phone] Sangeeta Cruz RN Unavailable [phone] Kenroy Hicks [facility] Unavailable Unavailable Kenroy Hicks [facility] Unavailable Unavailable Evette Mccloud RN Unavailable Livier Gris Odell MD Unavailable [phone] Encounter Details Date Type Department Care Team (Late st Contact Info) Description 08/09/2023 Treatment [facility] PATHOLOGY [address] [facility] [address] [place] [address] Kyaw Arroyo MD [address] [facility] [phone] [place] [address] Social History Tobacco Use Types Packs/Day Years [...] isolatio n Never 06/28/2023 Social Connection and Isolation Panel Answer Date Recorded In a typical week, how many times do you talk on the phone with family, friends, or neighbors? More than three times a week 06/01/2023 How often do you get togethe r with friends or relatives? More than three times a week 06/01/2023 How often do you attend chur ch or temple services? Never 06/01/2023 Do you belong to any clubs o r organizations such as sikh groups, unions, fraternal or athletic groups, or [...] place to sleep or slept in a jail (including now)? No 06/01/2023 Personal Safety Answer Date Recorded Getting School Help Needed Denies 07/02 Comments No Sex and Gender Information Value Date Recorded Sex Assigned at Not on file Legal Sex Female 12:20 AM MIXER FOAM RUBBER Gender Identity Female 04/17/2021 10:27 AM CDT [...] blood bank report. Tiffanie Wilkinson MD PhD R FOAM RUBBER R FOAM RUBBER documented in this encounter Plan of Treatment Not on file documented as of this encounter Visit Diagnoses Not on filedocumented in this encounter Additional Health Concerns Infection Onset Date Last Indicated Resolved Time Diarrhea 08/16/2023 08/18/2023 08/22/2023 9:17 AM MIXER FOAM RUBBER Exposure, Contact Comment:Patient exposed to C. Auris patient on 09/27/2023. Please contact infection prevention for instructions on obtaining surveillance cultures. 09/28/2023 09/28/2023 10/26/2023 3:05 AM C DT C. difficile suspected 06/13/2024 06/17/202406/14 3:05 AM MIXER FOAM RUBBER C. difficile suspected 06/17/2024 06/17/202406/17 6:54 PM MIXER FOAM RUBBER documented as of this encounter Care Teams Freelance Art Director Relationship Specialty Start Date End Date Sosa Flowers DO PCP - General Family Medicine 01/12/20 Gris Mccain MD [address] [facility] GASTROENTEROLOGY, [facility] [address], [place] [address] PCP - Home Infusion Attending Gastroenterology 12/12/24 Luis Miguel Medina MD [address] [facility] [phone] [place] [address] Surgeon Colon and Rectal Surgery 02/21/23 Beata Ambrosio MD [address] [place] [address] Referring Physician Gastroenterology 02/26/23 Star Griffiths MD [address] [facility] [place] [address] Consulting Physician Gastroenterology 02/27/23 Kingsley Ovalles MD [address] [facility] [place] [address] Consulting Physician Gastroenterology 02/27/23 Andreia Kidd RMA Surgical Prehabilitation and Readiness (SPAR) Coordinator 07/09/23 08/20/23 Lizeth Salazar MD Consulting Physician Infectious Diseases 07/12/23 Sangeeta Cruz RN [address] [facility] [address] [place] [address] SHOP Outpatient Civil Cad Tech 10/01/23 10/28/23 Kenroy Hicks [facility] Home Infusion Pharmacist Pharmacy 12/02/24 Kenroy Hicks [facility] Pharmacist Pharmacy 12/02/24 03/22/25 Evette Mccloud, JOSÉ Home Infusion Nursing 12/05/24 documented as of this encounter
--- OUTSIDE RECORDS SUMMARY | 2025-04-16 16:08 | XMS_ITS | Clinical Summary ---
Author Organization [facility] Address [address] [place] [address] Care Team Providers Care Lamp Wirer Name Role Phone Alfred De Souza MD Primary Care Provider [phone] Source Comments [facility],non-owned Affiliates and Associated Physician Practices is amultiple site organization consisting of ambulatory clinics and hospital sitesin [place], [place], [place] and [place]. This disclosure is being madepursuant to the Care Everywhere program and may not contain all information available regarding this patient. Last updated 18.[facility] [employer] Allergies Active Allergy Reactions Criticality Noted Date Comments Celecoxib Swelling 01/28/2019 Sulfa Drugs Rash Medium 01/28/2019 Social History Tobacco Use Types Packs/Day Years Used Date Smoking Tobacco: Never Assessed Comments Unknown Sex and Gender Information Value Date Recorded Sex Assigned at Not on file Legal Sex Female 9:33 AM CDT Gender Identity Not on file Sexual Orientation [...] 2008 ZOSTER VACCINE (1 of 2) 2008 DEPRESSION SCREENING 07/23/2024 COVID-19 VACCINE (2023-2 5 season) 2025 INFLUENZA VACCINE (#1) 2025 Respiratory Syncytial Virus (RSV) Vaccine Pt: or [...] to complete this topic MENINGOCOCCAL (Group B) VACC INE SHARED DECISION-MAKING Aged Out No longer eligibl e based on patient's age to complete this topic MENINGOCOCCAL GROUPS A/C/Y/W VACCINE Aged Out No longer eligible b ased on patient's age to complete this topic Insurance [address] [facility] Care Teams Lamp Wirer Relationship Specialty Start Date End Date Alfred De Souza MD [address] [place] [id number] PCP - General Family Medicine 01/28/19
--- OUTSIDE RECORDS SUMMARY | 2025-04-16 16:08 | XMS_ITS | Encounter Summary ---
Author Organization [facility] Address [address] [facility] [address] [place] [address] Phone Care Team Providers Care Brass Chaser Name Role Phone Tess Flowersna Jannette Primary Care Provider [phone] Luis Miguel Medina MD Unavailable [phone] Beata Ambrosio MD Unavailable [phone] Star Griffiths MD Unavailable [phone] Kingsley Ovalles MD Unavailable [phone] Lizeth Salazar MD Unavailable [phone] Kenroy Hicks [facility] Unavailable Unavailable Kenroy Hicks [facility] Unavailable Unavailable Evette Mccloud RN Unavailable Livier Gris Odell MD Unavailable [phone] Encounter Details Date Type Department Care Team (Late st Contact Info) Description 02/13/2025 Results Follow-Up [facility] Medicine Surgery [address] [facility] Floor [address] [place] [address] Luis Miguel Medina MD [address] [facility] [phone] [place] [address] Surgical pathology Social History Tobacco Use Types Packs/Day Years Used Date Smoking Tobacco: Former Cigarettes 0.5 15 1 796 - 1993 Passive Smoke Exposure: Past Smokeless Tobacco: Never Comments:Quit 1993 Alcohol Use Standard Drinks/Week Comments No 0 (1 standard drink = 0.6 oz pur e alcohol) OASIS D0700: Social Isolation Answer Da te Recorded Frequency of experiencing lo neliness or isolation Patient unable to respond 11/06/2024 [facility] Utilities Answer Date Recorded In the past 12 months has e electric, gas, oil, or water company [...] any clubs o r organizations such as bahai groups, unions, fraternal or athletic groups, or school groups? No 10/02/2023 How often do you attend meet ings of the clubs or organizations you belong to? Never 10/02/2023 Are you , , di vorced, , never , or living with a partner? 10/02/2023 AUDIT-C Answer Date Recorded Q1: How often do you have a drink containing alcohol? Never 02/10/2025 Q2: How many drinks containi ng alcohol do you have on a typical day when you are drinking? Patient does not drink Q3: How often do you have si x or more drinks on one occasion? Never 02/10/2025 Overall Financial Resource Strain (CARDIA) Answe r [...] place to sleep or slept in a mcc (including now)? No 10/02/2023 Personal Safety Answer Date Recorded Have you ever been in or are you currently in a harmful physical or emotional relationship or is someone making you feel afraid or unsafe? 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 Female 12:20 AM CERTIFIED SCRUM MASTER Gender Identity Female 04/17/2021 10:27 AM CDT Sexual Orientation Straight 04/17/2021 10 :27 AM CDT documented as of this encounter Miscellaneous Notes * Result Encounter Note - Luis Miguel Medina MD - 02/13/2025 11:38 AM CDT No surprises. She is in house, and I will discuss this with her. documented in this encounter Plan of Treatment Not on file documented as of this encounter Visit Diagnoses Not on filedocumented in this encounter Care Teams Brass Chaser Relationship Specialty Start Date End Date Sosa Flowers DO PCP - General Family Medicine 01/12/20 Gris Mccain MD [address] [facility] GASTROENTEROLOGY, [facility] [address] [place] [address] PCP - Home Infusion Attending Gastroenterology 12/12/24 Luis Miguel Medina MD [address] [facility] [phone] [place] [address] Surgeon Colon and Rectal Surgery 02/21/23 Beata Ambrosio MD [address] [place] [address] Referring Physician Gastroenterology 02/26/23 Star Griffiths MD 1 [facility] [place] [address] Consulting Physician Gastroenterology 02/27/23 Kingsley Ovalles MD [address] [facility] [place] [address] Consulting Physician Gastroenterology 02/27/23 Lizeth Salazar MD [address] [facility] [place] [address] Consulting Physician Infectious Diseases 07/12/23 Kenroy Hicks [facility] Home Infusion Pharmacist Pharmacy 12/02/24 Kenroy Hicks [facility] Pharmacist Pharmacy 12/02/24 03/22/25 Evette Mccloud, JOSÉ Home Infusion Nursing 12/05/24 documented as of this encounter
--- OUTSIDE RECORDS SUMMARY | 2025-04-16 16:08 | XMS_ITS | Encounter Summary ---
Author Organization [facility] Address [address] [place] [address] Phone Care Team Providers Care Automotive Technician Name Role Phone Sosa Flowers DO Primary Care Provider [phone] Luis Miguel Medina MD Unavailable [phone] Beata Ambrosio MD Unavailable [phone] Star Griffiths MD Unavailable [phone] Kingsley Ovalles MD Unavailable [phone] Nory JacquesW Unavailable [phone] Andreia Kidd Unavailable Unavailable Lizeth Salazar MD Unavailable [phone] Sangeeta Cruz RN Unavailable [phone] Kenroy Hicks [facility] Unavailable Unavailable Kenroy Hicks jen Unavailable Unavailable Evette Mccloud RN Unavailable Livier Gris Odell MD Unavailable [phone] Encounter Details Date Type Department Care Team [...] on file Legal Sex Female 12:20 AM FLAG SIGNALER Gender Identity Female 04/17/2021 10:27 AM CDT [...] Time Diarrhea 08/16/2023 08/18/2023 08/22/2023 9:17 AM FLAG SIGNALER Exposure, Contact Comment:Patient exposed to C. Auris patient on 09/27/2023. Please contact infection prevention for instructions on obtaining surveillance cultures. 09/28/2023 09/28/2023 10/26/2023 3:05 AM C DT C. difficile suspected 06/13/2024 06/17/202406/14 3:05 AM FLAG SIGNALER C. difficile suspected 06/17/2024 06/17/202406/17 6:54 PM FLAG SIGNALER documented as of this encounter Care Teams Automotive Technician Relationship Specialty Start Date End Date Kendrickbarrysissy Sosa BhatiaDO PCP - General Family Medicine 01/12/20 Gris Mccain MD [address] [facility] IM GASTROENTEROLOGY, [facility] [address] [place] [address] PCP - Home Infusion Attending Gastroenterology 12/12/24 Luis Miguel Medina MD [address] [facility] [phone] [place] [address] Surgeon Colon and Rectal Surgery 02/21/23 Beata Ambrosio MD [address] [place] [address] Referring Physician Gastroenterology 02/26/23 Star Griffiths MD 1 [facility] [place] [address] Consulting Physician Gastroenterology 02/27/23 Kingsley Ovalles MD 1 [facility] [place] [address] Consulting Physician Gastroenterology 02/27/23 Nory Jacques, [facility] [address] [facility] ([facility] Mailstop [phone] [place] [address] SHOP Outpatient Mental Tester 06/01/23 07/01/23 Andreia Kidd RMA Surgical Prehabilitation and Readiness (SPAR) Coordinator 07/09/23 08/20/23 Lizeth Salazar MD Consulting Physician Infectious Diseases 07/12/23 Sangeeta Cruz RN [address] [facility] [address] [place] [address] Radico Outpatient Mental Tester 10/01/23 10/28/23 Kenroy Hicks [facility] Home Infusion Pharmacist Pharmacy 12/02/24 Kenroy Hicks [facility] Pharmacist Pharmacy 12/02/24 03/22/25 Evette Mccloud, JOSÉ Home Infusion Nursing 12/05/24 documented as of this encounter
--- OUTSIDE RECORDS SUMMARY | 2025-04-16 16:08 | XMS_ITS | Clinical Summary ---
Author Organization [facility] Address [address] [place] [address] Care Team Providers Care Business Support Professional Name Role Phone Sosa Flowers DO Primary Care Provider [phone] Luis Miguel Medina MD Unavailable [phone] Beata Ambrosio MD Unavailable [phone] Star Griffiths MD Unavailable [phone] Kingsley Ovalles MD Unavailable Lizeth Salazar MD Unavailable [phone] Kenroy Hicks [facility] Unavailable Unavailable Evette Mccloud RN Unavailable Livier Gris Odell MD Unavailable [phone] Allergies Active Allergy Reactions Criticality Noted Date Comments Celecoxib Swelling Medium 01/28/2019 Chlorhexidine Gluconate Itching Low 01/12/2025 Clindamycin Rash Medium 10/21/2021 Fentanyl Nausea And Vomiting Low 10/18/2022 Latex Rash Medium 08/20/2018 Sulfa (Sulfonamide Antibiotics) Rash Medium 07/24 Medications levothyroxine (SYNTHROID) 50 mcg tablet Take 1 tablet (50 mcg total) by mouth anthropology department chair before breakfast Active omeprazole (PriLOSEC) 20 mg capsule Take 1 capsule (20 mg total) by mouth every morning 12/09/2 022 Active 0.9 % sodium chloride ([facility] sodium chloride 0.9%) injection Infuse 10 mL IV 3 (three) times a day as needed for line care Active heparin sod,porcine/0.9 % NaCl (HEPARIN FLUSH IV)Indications:PI CC LINE CARE Infuse 5 mL into a venous catheter as needed (PICC LINE CARE). Indications: PICC LINE CARE Active valACYclovir (VALTREX) 1 gram tablet Take 1 tablet (1,000 mg total) by mouth as needed Fever blister 024 Active dicyclomine (BENTYL) 10 mg capsule TAKE 1 CAPSULE BY MOUTH 4 TIMES A DAY NEEDED FOR STOMACH PAIN- TAKE WITH MEALS & AT BEDTIME 360 capsule 1 025 Active Additional Information Patient taking differently: 10 mg oral See admin instructions, TAKE 1 CAPSULE BY MOUTH 4 TIMES A DAY NEEDED FOR STOMACH PAIN- TAKE WITH MEALS & AT BEDTIMEPt taking as needed, Indications: Abdominal Pain with Cramps, Informant: Self, Reported on 03/16/2025 calcium-vitamin D3-vitamin K 500 mg-1,000 unit-40 mcg tablet,chewable Take 1 tablet/chew tab by mouth 2 (two) times a day 180 tablet 3 025 Active Additional Information Patient taking differently:1 tablet/chew tab oral 2 times daily,supplement, Informant: Self, Reported on 03/16/2025 sodium bicarbonate 650 mg tabletIndications :Acidosis Take 1 tablet (650 mg total) by mouth daily 90 tablet 3 025 Active Additional Information Patient taking differently:650 mg oralEvery morning, Bone health.. Take 2 tablets a day, Reported on 03/16/2025 sodium chloride 0.9% injectionIndicati ons:High output ileostomy (HCC) Infuse 10 mL IV as needed for line care 63361 mL 04/14/20 11:59 PM CDT 025 2024 Active heparin 10 unit/mL syringeIndication s:High output ileostomy (HCC) Infuse 5 mL (50 Units total) IV as needed (line care) 17947 mL 04/14/20 11:59 PM CDT 025 2024 Active 0.9 % sodium chloride (sodium chloride 0.9%) 0.9% infusionIndicatio ns:High output ileostomy (HCC) Infuse 1,000 mL IV daily Infuse 1000ml of Normal Saline solution every 24 hours via rate flow tubing over 1-2 hours at 250-500 ml/hour. Store at room temperature. [id number] mL 04/08/20 11:59 PM CDT 2024 Active Additional Information Patient taking differently:1,000 mL intravenous Daily, Infuse 1000ml of Normal Saline solution every 24 hours via rate flow tubing over 1-2 hours at 250-500 ml/hour. Store at room temperature.Hydration, Informant: Self, Reported on 03/16/2025 Gattex 30-Vial 5 mg kit INJECT 0.25 ML UNDER THE SKIN 1 TIME A DAY 1 kit Active Additional Information Patient not taking.Reported on 03/16/2025 fluticasone propionate (FLONASE) 50 mcg/actuation nasal spray Administer 1 spray into each nostril as needed for allergies Active cholecalciferol (VITAMIN D-3) 5,000 unit tablet Take 1 tablet (5,000 Units total) by mouth daily Active Adult 3-in-1 TPNIndications:Hi gh output ileostomy (HCC),Crohn's disease of small and large intestines with complication (HCC) Patient to add 10 mL Multivitamin to each TPN just prior to infusing. Infuse 1900 mL (1439 kCal) Three days per week over 12 hours by CADD pump at 158.4 mL/hr. 10753 mL 04/14/20 11:59 PM CDT 2025 Active oxyCODONE (ROXICODONE) 5 mg immediate release tabletIndications :Pain Take 1 tablet (5 mg total) by mouth every 4 (four) hours as needed for pain 15 tablet Active cholestyramine (QUESTRAN) 4 gram powder Take 1 packet (4 g total) by mouth daily Dissolve in 8 oz of liquid and drink before a meal 30 packet 2025 Active ondansetron ODT (ZOFRAN-ODT) 8 mg disintegrating tablet Take 1 tablet (8 mg total) by mouth every 8 (eight) hours as needed for nausea or vomiting 20 tablet 2 08/18/2 025 Active loperamide (IMODIUM A-D) 2 mg tablet Take 2 tablets (4 mg total) by mouth 4 (four) times a day as needed for diarrhea 100 tablet 1 025 Active multivitamin, adult, (MVI) solution injectionIndicati ons:High output ileostomy (HCC) Add contents of one BLUE top vial & and one WHITE top vial (10 mL total) to TPN prior to administration. Mix TPN well prior to infusing 1530 mL 04/14/20 11:59 PM CDT 025 2025 Active diphenoxylate-atr opine (LOMOTIL) 2.5-0.025 mg per tabletIndications :diarrhea Take 2 tablets by mouth 4 (four) times a day as needed for diarrhea 120 tablet 5 025 2025 Active upadacitinib (Rinvoq) 30 mg extended release tabletIndications :Crohn's Disease Take 1 tablet (30 mg total) by mouth daily 30 tablet 5 Active atorvastatin (LIPITOR) 10 mg tablet Take 1 tablet (10 mg total) by mouth daily 2022 Discontinued(N o longer clinically indicated) Rinvoq 30 mg extended release tabletIndications :Crohn's Disease TAKE ONE TABLET BY MOUTH EVERY DAY 30 tablet 5 025 2024 Discontinued acetaminophen 500 mg capsuleIndication s:Pain Take 2 capsules (1,000 mg total) by mouth every 6 (six) hours as needed for pain 025 2024 Active Problems Problem Noted Date Diagnosed Date Chronic kidney disease-mineral and bone disorder (CKD-MBD) 11/21/2024 Assessment & Plan (03/06/2025 2:15 PM CDT): CKD-MBD in setting of CKD Stage 3b For CKD MBD management, please note that first-line treatment of CKD-Associated Osteoporosis is to optimize CKD-MBD and to continue to optimize it during bone-targeted treatment: Ca/Phos: Please maintain wnl Ca Supplementation: No more than 800-1000 mg daily of total calcium intake by diet or supplements. If on dairy restriction, please use 600 mg tablet Vitamin D: Please maintain 25D levels ~ 40 ng/mL. Can maintain on D3 supplement PTH: For pre-HD and post-transplant patients, PTH targets are not defined. The SOC is to monitor PTH serially in context of D, Phos, Ca and consider a VDRA if PTH levels are high and/or increasing despite optimization of other CKD-MBD parameters. In the setting of osteoporosis, lower PTH levels are likely more beneficial to preserving bone quality and strength and the level should be no more than 1x the ULN for the local PTH assay. Acidosis: Bicarb < 21 can negatively impact skeletal health and levels should be maintained > 22. This patient's CO2 18 and would increase alkali supplementation to 650 mg BID. We will check a vitamin D level to confirm adequacy of current supplementation. Bone: Please review the OP section Assessment & Plan (11/21/2024 1:35 PM CDT): CKD-MBD c/b osteoporosis, fractures, hypoCa, D-deficiency. -PTH is at goal -Taget 25D > 40 ng/mL, she was deficient at her primary visit and she was started on 5k daily. Levels will be monitored on a yearly basis to target 40 ng/mL -Ca level low at primary visit and she was started on Ca 500 mg bid. She has malabsorption and should be on a supplement to assist with maintaining neutral ca balance -OP: management as per OP Section Acidosis 11/21/2024 Assessment & Plan (11/21/2024 1:39 PM CDT): Metabolic acidosis due to CKD -> target 22. Will initiate on 1, 650 mg tab daily to assist with control and to assist with enhancing bone mineralization. CKD stage 3b, GFR 30-44 ml/min 11/21/2024 Assessment & Plan (03/06/2025 2:21 PM CDT): CKD Stage 3b. -Level of GFR 44 does not affect bone drug selection, dosing and side effect monitoring. -ALANA Type not high defined and the type of drug and monitoring choice will follow once BTMs and or bone biopsy is assessed. - check US kidneys, check urinalysis and albumin creatinine ratio. Assessment & Plan (11/21/2024 1:58 PM CDT): CKD 3b by Cystatin C eGFR 40 /min. She does not have a carry out clerk and has asked me to assume her care. We will assess blood and urine and DELFINO at next visit to assess etiology. Her GFR at this time will not affect drug dosing for bone-targeting therapy. Other osteoporosis without current pathological fracture 10/17/2024 Assessment & Plan (03/06/2025 2:12 PM CDT): Osteoporosis (high severity; high fracture risk) in setting of CKD Stage 3b. Risk is assessed by the Lowest T-Scores -4.1 UD site, -4.7 prox 1/3 radius, LS T-scoe with TBS adjustment -3.4 and femoral neck -2.9. Prior fx history of insufficiency fractures of the superior right femoral head (subarticular insufficiency) and left sacral ala. Chronic GI issues pertaining to her Crohn's disease with multiple surgeries impacting her oral nutrition with poor appetite and malabsorption of micronutrients and minerals very likely. She is currently on TPN and IVF via PICC line. The patient very likely has an element of osteomalacia secondary to her poor nutritional status. This may impact the choice of osteoporosis therapy where bisphosphonates are excluded for risk of exacerbating her osteomalacia. In CKD, the treatment strategy includes first-line optimization of CKD-MBD status followed by treatment with a bone-targeted agent based on post- optimization ALANA subtype. This patient's, CKD-MBD parameters are not well managed and show PTH 64, Calcium 9.0, Phos 3.7 and 25D 28. ALANA Type based on BTMs have been obtained and suggest not high bone turnover state. Once the patient is on treatment, the DXA will be re-assessed in 1 year. Assessment & Plan (11/21/2024 2:03 PM CDT): Severe OP with high fx risk and lowest T-score -3.4 LS (with TBS correction). T-Scores at the TH and FN are -2.7 and -2.9 respectively. BMD of the forearm has been added at this fup visit and T-Score -4.7 and -4.1 at the 1/3R and UDR respectively. The difference bn the LS and UDR is likley due to bias in the LS image. She has multiple complex conditions that may result in metabolic bone disease - most importantly she has long standing crohn's and malabsorption. She is also frail with low muscle mass. Her scr-cys GFR = 54/min which is substantially lower then based on scr alone which = 70 / minute. At the primary visit had multiple metabolic abnl of ca/d homeostasis including hypoCa, d insufficiency that may cause mineralization defects. She was started on a Ca chewy 500 mg 2x daily and on fup labs has Ca wnl. She had Vitamin D insufficiency for CKD and was stared on 5k daily. Her PTH is wnl but her phos is mildly elevated. Her bsap is 15 and ctx 647, suggesting that turnover is not high; however, a more recent TAP has increased after starting D and Ca which may suggest increases in bone formation and/or mineralization. She is also noted to have metabolic acidosis with CO3 = 20 Plan -Continue Ca chewy 500 mg bid -Continue D3 5k daily -Start bicarb 1 tab daily to correct >= 22 -Unlikely OM given BSAP and unlikely high turnover - given h/o malabsorption and high risk for hypoCa with dmab and risk for mineral defect with BP, and given severe OP by T-Score, would prefer anabolic agent with teriparatide or abaloparatide. Bone biopsy might be more useful in this case to ensure lack of high turnover. We will continue with CKD-MBD and acid treatment, reassess labs in 3 mos, and then decide on tx plan. Assessment & Plan (10/17/2024 4:29 PM CDT): Severe OP with high fx risk and lowest T-score -3.4 LS (with TBS correction). T-Scores at the TH and FN are -2.7 and -2.9 respectively. The forearm was not done. She has multiple complex conditions that may result in metabolic bone disease - most importantly she has long standing crohn's and malabsorption. She is also frail with low muscle mass and although her GFR = 70 / minute, her GFR is likely lower and we will check a cystatin C. She has multiple metabolic of ca/d homeostasis including hypoCa and d insufficiency that may be causing a mineralization defect. At this time, we will check a few labs -> CysC, PTH, TSH, SPEP/UPEP, BSAP, CTX. We will also start her on a Ca chewy 500 mg bid and increase her D3 to 5k daily. Once her labs are evaluated we can assess the next steps in her management. If we think she has a component of OM, we will refrain from BP therapy. Given the severity of her OP, anabolic therapy is preferred. I'd like more data on her prior use of forteo and we will try to obtain the OSH records. Pain of right hip 10/17/2024 Assessment & Plan (10/17/2024 4:14 PM CDT): Right hip pain and possible fracture per ortho. MRI right hip pending. 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 DVT (deep venous thrombosis) 09/27/2023 Assessment & Plan (09/28/2023 12:50 PM BLACK TOPPER): Patient presenting with LUE swelling and redness [...] 09/27/2023 Assessment & Plan (09/27/2023 2:47 AM BLACK TOPPER): - continue home synthroid Ileostomy in place 09/22/2023 Assessment & Plan (09/28/2023 12:48 PM BLACK TOPPER): - RD c/s for TPN - continue [...] 08/07/2023 Assessment & Plan (08/07/2023 8:00 PM BLACK TOPPER): Patient is followed by home health nurse, [...] 08/07/2023 Assessment & Plan (08/07/2023 8:04 PM BLACK TOPPER): Crohn's disease: Was taken off steroids recently, stable disease, does not endorse significant symptom burden. GERD: Resume home BPI Hypothyroidism: Resume home levothyroxine NAFLD: Alk-phos 192, AST 52, around baseline, patient use cholestyramine p.r.n.. Crohn's disease 07/11/2023 Assessment & Plan (09/27/2023 2:46 AM BLACK TOPPER): Ileal CD Dx 2019. Previously on entyvio [...] 05/25/2023 Assessment & Plan (05/29/2023 9:53 AM BLACK TOPPER): No systemic manifestations, mucosal involvement, or worsening laboratory studies to suggest life-threatening process. Timing following start of ganciclovir suggests this as cause. Unfortunately, if ganciclovir indeed causative is likely to persist unless drug stopped, and alternative antiviral therapies appear inferior due to toxicities, cost, and/or potential development of resistance. Continue supportive cares as suggested by Dermatology. Assessment & Plan (05/28/2023 2:42 PM BLACK TOPPER): No systemic manifestations, mucosal involvement, or worsening laboratory studies to suggest life-threatening process. Timing following start of ganciclovir suggests this as cause. Unfortunately, if ganciclovir indeed causative is likely to persist unless drug stopped, and alternative antiviral therapies appear inferior due to toxicities, cost, and/or potential development of resistance. Continue supportive cares as suggested by Dermatology. Assessment & Plan (05/27/2023 11:59 AM BLACK TOPPER): No systemic manifestations, mucosal involvement, or worsening [...] route at this time. 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 Assessment & Plan (05/31/2023 9:26 AM BLACK TOPPER): Diarrhea and cytopenia in context of Crohn [...] scheduled Assessment & Plan (05/28/2023 2:41 PM BLACK TOPPER): Diarrhea and cytopenia in context of Crohn disease with recent pharmacologic immunosuppression strongly suggestive of CMV enteritis. Viral DNA PCR diminished following start of ganciclovir; unclear if repeat check will be needed prior to release from hospital. Plan to continue ganciclovir at discharge. See below. Assessment & Plan (05/27/2023 11:58 AM BLACK TOPPER): Diarrhea and cytopenia in context of Crohn [...] of the small bowel. Bcx, HIV, cdiff, SERVICING REP RVP all negative. CMV PCR + 05/16--30. Unlear if persistent GI symptoms are related [...] 1 Assessment & Plan (05/30/2023 12:01 PM BLACK TOPPER): On exam, pt with noticeable pitting edema of LLE. Doppler of left lower extremity on admit showed superficial vein thrombus. Superficial veins involved include the left great saphenous vein at mid and distal calf, area of pain. Repeat Doppler on 05/29 showed no DVT. -pt denies hx of DVT and PE -krishna yap Assessment & Plan (05/28/2023 2:43 PM BLACK TOPPER): Doppler of left lower extremity showed superficial vein thrombus. Superficial veins involved include the left great saphenous vein at mid and distal calf, area of pain. Given increasing edema of limb and active inflammation would exclude extension into deep system prior to release from hospital; awaiting repeat venous duplex (ordered several days ago). Assessment & Plan (05/27/2023 12:00 PM BLACK TOPPER): Doppler of left lower extremity showed superficial [...] 05/17/2023 Assessment & Plan (05/31/2023 9:27 AM BLACK TOPPER): Of unclear cause; partially resolved. Platelet count improved, now WNL; WBC improving. (Rinvoq had been suspected earlier as causative, though thrombocytopenia not listed in Micromedex among adverse effects of Rinvoq.) May also have been CMV-mediated. Assessment & Plan (05/28/2023 2:42 PM BLACK TOPPER): Of unclear cause; partially resolved. Platelet count improved; WBC fluctuating, though improvement likewise suggested. (Interestingly, Rinvoq had been suspected earlier as causative, though thrombocytopenia not listed in Micromedex among adverse effects of Rinvoq.) ?CMV-mediated? Assessment & Plan (05/27/2023 11:59 AM BLACK TOPPER): Of unclear cause. Platelet count improved; WBC [...] see below. Platelet count improved. Severe malnutrition 02/25/2023 Assessment & Plan (09/27/2023 2:47 AM BLACK TOPPER): On TPN and ileostomy diet with eventual goal to wean off of TPN. - RD c/s Assessment & Plan (05/30/2023 12:03 PM BLACK TOPPER): Nutrition following for TPN; appreciate recs thus far. Plan to continue at discharge to optimize prior to planned bowel resection. -per nutrition, pt should continue PO calcium, vit D, and B12 supplementation after d/c Assessment & Plan (05/28/2023 2:42 PM BLACK TOPPER): Nutrition following for TPN; appreciate recs thus far. Plan to continue at discharge to optimize prior to planned bowel resection. Assessment & Plan (05/27/2023 11:59 AM BLACK TOPPER): Nutrition following for TPN; appreciate recs thus [...] (10/26/2022): Added automatically from request for surgery [id number] Chronic parotitis 10/13/2021 NAFLD (nonalcoholic fatty liver [...] on retroflexion view. PATH: Specimen labeled Random stomach, biopsy - Colonic mucosa, no diagnostic abnormalities are identified - No dysplasia or granulomas identified B. Specimen labeled Random colon, biopsy - Gastric antral and oxyntic mucosa [...] new or increased in extent, involving the [id number] ileum. There is minimal narrowing with possible [...] surgery. Assessment & Plan (05/29/2023 12:56 PM BLACK TOPPER): - On Rinvoq at home, currently being held. 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 - avoid aggressive antidiarrheal management due to underlying stricturing disease - Continue TPN for nutritional optimization for eventual resection per CRS. Assessment & Plan (05/28/2023 2:40 PM BLACK TOPPER): - On Rinvoq at home, currently being held. 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 - avoid aggressive antidiarrheal management due to underlying stricturing disease Continue TPN for nutritional optimization for eventual resection per CRS. Assessment & Plan (05/27/2023 11:58 AM BLACK TOPPER): - On Rinvoq at home, currently being [...] recs Assessment & Plan (09/13/2021 2:45 PM BLACK TOPPER): - Will maximize IFX therapy by increasing it to 10 mg/kg q4 weeks - Will assess treatment response with colonoscopy/MRE in 4-6 months - Refer to Dermatology for rash - Refer to ENT for chronic sinusitis Gastroesophageal reflux disease without esophagi tis 08/20/2018 Assessment & Plan (09/27/2023 2:48 AM BLACK TOPPER): - continue home PPI Resolved Problems Problem Noted Date Diagnosed Date Resolved Date Severe malnutrition 06/10/2023 06/10/20 23 Hyponatremia 05/17/2023 08/02/2023 Assessment & Plan (05/29/2023 12:57 PM BLACK TOPPER): Remains mild. Likely due to hypovolemia engendered by diarrhea from active Crohn disease plus/minus CMV enteritis. No additional management warranted. Assessment & Plan (05/28/2023 2:41 PM BLACK TOPPER): Remains mild. Likely due to hypovolemia engendered by diarrhea from active Crohn disease plus/minus CMV enteritis. No additional management warranted. Assessment & Plan (05/27/2023 11:58 AM BLACK TOPPER): Remains mild. Likely due to hypovolemia engendered [...] 05/29/2023 Assessment & Plan (05/29/2023 12:58 PM BLACK TOPPER): CMV DNA +, 5k international units/ml, patient [...] scheduled Assessment & Plan (05/28/2023 2:41 PM BLACK TOPPER): CMV DNA +, 5k international units/ml, patient [...] rash. Assessment & Plan (05/27/2023 11:58 AM BLACK TOPPER): CMV DNA +, 5k international units/ml, patient [...] (01/11/2022): Added automatically from request for surgery [id number] Overweight (BMI 25.0-29.9) 10/18/2020 0 02/25/2023 Nausea and vomiting 08/21/2018 08/02/19 24 Overview (08/21/2018): Added automatically from request for surgery [id number] Diarrhea 04/23/2018 04/22/2023 Encounters Date Type Department Care Team Description 04/16/2025 Home Infusion [facility] Home Infusion Therapy [address] [place] [address] Clyde Mendoza CPhT 04/15/2025 Orders Only [facility] [address] [place] [id number] Sara Shannon Cytomegalovirus (CMV) viremia (HCC) (Primary Dx) 04/14/2025 Telephone [facility] [address] [facility] [address] [place] [address] Susi Tinsley CMA 04/13/2025 2:58 PM CDT - 04/13/2025 11:59 PM CDT Hospital Encounter [facility] [address] [place] [address] Discharge Disposition: Discharge to home or self care 04/13/2025 10:30 AM CDT Home Care Visit [facility]fusion [facility] [address] [place] [address] Zackery Pickens, RN HI ROUTINE VISIT 04/13/2025 10:00 AM CDT Telemedicine [facility] [address] [facility] [address] [place] [id number] Beata Ambrosio MD Crohn's disease of small and large intestines with complication (CMS/HCC) (HCC) (Primary Dx) 04/13/2025 Documentation [facility] [facility] [address] [place] [address] [place] [address] Isela Bray RN Treatment Plan Update (04/13/2025 rov) 04/10/2025 Home Infusion [facility] Home [facility]fusion Therapy [address] [place] [address] Michelle Valle 04/09/2025 Telephone [facility] [address] [facility] [address] [place] [phone] Cam Jara MD 04/07/2025 Home Infusion [facility] Home Infusion Therapy [address] [place] [address] Kenroy Hicks RPh 04/06/2025 12:25 PM CDT - 04/06/2025 11:59 PM CDT Hospital Encounter [facility] [address] [place] [address] Discharge Disposition: Discharge to home or self care 04/06/2025 9:00 AM CDT Home Care Visit [facility] [address] [place] [address] Zackery Pickens, RN HI ROUTINE VISIT 03/30/2025 1:20 PM CDT - 03/30/2025 11:59 PM CDT Hospital Encounter [facility] [address] [place] [address] Discharge Disposition: Discharge to home or self care 03/30/2025 9:00 AM CDT Home Care Visit [facility] [address] [place] [address] Zackery Pickens RN DC ROUTINE VISIT 03/26/2025 Home [facility] [address] [place] [address] Edgardo Denney, [facility] 03/24/2025 2:25 PM CDT - 03/24/2025 11:59 PM CDT Hospital Encounter [address] [address] Discharge Disposition: Discharge to home or self care 03/24/2025 12:00 PM CDT Home Care Visit [facility] [address] [place] [address] Zackery Pickens RN DC ROUTINE VISIT 03/20/2025 Telephone [facility] [address] [place] [address] 12th [place] [address] [place] [phone] Rocio Costa Medical Question/Miscellaneou s 03/17/2025 Telephone [facility] [address] [facility] [address] [place] [phone] Colleen Jenkins 03/17/2025 Home Infusion [facility] [address] [place] [address] Andreia Franco, [facility] 03/16/2025 2:45 PM CDT Office Visit [facility] [address] [facility] Floor 5 [place] [phone] Luis Miguel Medina MD Crohn's disease of small and large intestines with complication (HCC) (Primary Dx); On total parenteral nutrition (TPN); Postop check 03/16/2025 12:42 PM CDT - 03/16/2025 11:59 PM CDT Hospital Encounter [facility] [address] [place] [address] Discharge Disposition: Discharge to home or self care 03/16/2025 10:30 AM CDT Home Care Visit [facility] [address] [place] [address] Zackery Pickens RN DC ROUTINE VISIT 03/13/2025 Home Infusion [facility] [address] [place] [address] Clyde Mendoza CPhT High output ileostomy (HCC) 03/10/2025 Telephone [facility] [address] [facility] 12th [place] [address] [place] [address] Rocio Costa Med Management (imodium) 03/10/2025 Orders Only [facility] [address] [place] [address] [place] [address] Beata Ambrosio MD 03/09/2025 1:59 PM CDT - 03/09/2025 11:59 PM CDT Hospital Encounter [facility] [address] [place] [address] Discharge Disposition: Discharge to home or self care 03/09/2025 10:30 AM CDT Home Care Visit [facility] [address] [place] [address] Zackery Pickens RN DC ROUTINE VISIT 03/09/2025 9:00 AM CDT Telemedicine [facility] [address] [place] [address] Medical Office Building 4 [address] [place] [address] Beata Ambrosio MD Crohn's disease of small and large intestines with complication (CMS/HCC) (HCC) (Primary Dx); Severe malnutrition; Iron deficiency anemia due to chronic blood loss; High risk medications (not anticoagulants) long-term use 03/09/2025 Home Infusion [facility] [address] [place] [address] Clyde Mendoza CPhT 03/09/2025 Documentation [facility] [address] [facility] 12th [place] [address] [place] [address] Isela Bray RN Treatment Plan Update (03/09/2025) 03/06/2025 1:40 PM CDT Office Visit [facility] [address] [facility] 13th [place] [address] [place] [address] Cam Jara MD Other osteoporosis without current pathological fracture (Primary Dx); CKD stage 3b, GFR 30-44 ml/min (HCC); Chronic kidney disease-mineral and bone disorder (CKD-MBD) 03/03/2025 Telephone [facility] [address] [place] [address] Medical Office Building [address] [place] [phone] Ghada Arita RN 03/02/2025 2:19 PM CDT - 03/02/2025 11:59 PM CDT Hospital Encounter [facility] [address] [place] [address] Discharge Disposition: Discharge to home or self care 03/02/2025 12:00 PM CDT Home Care Visit [facility] [address] [place] [address] Zackery Pickens RN DC ROUTINE VISIT 03/02/2025 Telephone [facility] [address] [facility] 12th [place] [address] [place] [address] Rocio Costa Follow-up; Medication Request (cholestyramine) 02/24/2025 Home Infusion [facility] [address] [place] [address] Kenroy Hicks RPh 02/24/2025 Telephone [facility] [address] [facility] Floor 5 [place] [address] Zahraa Hicks RMA 02/24/2025 Telephone [facility] [address] [facility] 13th [place] [address] [place] [address] Cam Jara MD 02/23/2025 2:16 PM CDT - 02/23/2025 11:59 PM CDT Hospital Encounter [facility] [address] [place] [address] Discharge Disposition: Discharge to home or self care 02/23/2025 10:30 AM CDT Home Care Visit [facility] [address] [place] [address] Zackery Pickens RN DC ROUTINE VISIT 02/23/2025 Home Infusion [facility] [address] [place] [address] Clyde Mendoza CPhT 02/19/2025 10:30 AM CDT Home Care Visit [facility] [address] [place] [address] Evette Simon do, RN DC RESUME VISIT 02/13/2025 Results Follow-Up [facility] [address] [facility] 5 [place] [address] Luis Miguel Medina MD Surgical pathology 02/10/2025 9:45 AM CDT - 02/10/2025 2:15 PM CDT Surgery [facility] Operating Room 1 [place] [address] Luis Miguel Medina MD PRIMARY REPAIR PARASTOMAL HERNIA 02/10/2025 9:36 AM CDT Anesthesia Event [facility] Operating Room 1 [place] [address] Emmie Villalobos DO McNamara, Amberlyn, NP 02/10/2025 7:42 AM CDT - 02/18/2025 2:10 PM CDT Hospital Encounter [address] [address] Luis Miguel Medina MD Acute postoperative abdominal pain [G89.18, R10.9] (Primary Dx); Ileostomy in place (HCC) Discharge Disposition: Discharge to home, home health skilled care 02/10/2025 Home Infusion [facility] [address] [place] [address] Kenroy Hicks RPh High output ileostomy (HCC); Crohn's disease of small and large intestines with complication (HCC) 02/09/2025 3:01 PM CDT - 02/09/2025 11:59 PM CDT Hospital Encounter [facility] [address] [place] [address] Discharge Disposition: Discharge to home or self care 02/09/2025 10:15 AM CDT Home Care Visit [facility] [address] [place] [address] Zackery Pickens RN DC ROUTINE VISIT 02/09/2025 Telephone [facility] [address] [facility] Floor 5 [place] [address] Zahraa Hicks RMA Surgery Confirmation 02/07/2025 Home Infusion [facility] [address] [place] [address] Nelli Jamison, [facility] 02/03/2025 Telephone [facility] [address] [facility] 12th [place] [address] [place] [address] Rocio Costa Surgical Clearance (Rinvoq) 02/02/2025 2:52 PM CDT - 02/02/2025 11:59 PM CDT Hospital Encounter [facility] [place] [address] Discharge Disposition: Discharge to home or self care 02/02/2025 9:30 AM CDT Home Care Visit [facility] [address] [place] [address] Zackery Pickens RN DC ROUTINE VISIT 01/29/2025 2:00 PM CDT Pre-Admission Testing [facility] Center for Preoperative Assessment and Planning [facility] ([facility]) [address] [place] [address] Preoperative testing (Primary Dx) 01/29/2025 Home Infusion [facility] [address] [place] [address] Milagros Wolfe High output ileostomy (HCC) (Primary Dx); Crohn's disease of small and large intestines with complication (HCC) 01/28/2025 Home Infusion [facility] [address] [place] [address] Kenroy Hicks jen 01/26/2025 12:45 PM CDT Office Visit [facility] [address] [facility] Floor 5 [place] [phone] Luis Miguel Medina MD Crohn's disease of small and large intestines with complication (HCC) (Primary Dx); Ileostomy in place (HCC); On total parenteral nutrition (TPN); Other pancytopenia (HCC) 01/26/2025 11:52 AM CDT - 01/26/2025 11:59 PM CDT Hospital Encounter [facility] [address] [place] [address] Discharge Disposition: Discharge to home or self care 01/26/2025 10:15 AM CDT Home Care Visit [facility] [address] [place] [address] Zackery Pickens RN DC ROUTINE VISIT 01/22/2025 Documentation [facility] [address] [facility] 12th [place] [address] [place] [address] Gris Mccain MD abnormal laboratory results 01/22/2025 Results Follow-Up [facility] [address] [facility] 12th [place] [address] [place] [address] Gris Mccain MD IR Exchange PICC Line 01/22/2025 Results Follow-Up [facility] [address] [facility] 12th [place] [address] [place] [address] Gris Mccain MD Comprehensive metabolic panel, without glucose (Outreach), Glucose, random (Outreach), CBC with auto differential, Additional followed-up results: 18 01/21/2025 Home Infusion [facility] [address] [place] [address] Kenroy Hicks RPh 01/19/2025 2:03 PM CDT - 01/19/2025 11:59 PM CDT Hospital Encounter [facility] [address] [place] [address] Discharge Disposition: Discharge to home or self care 01/19/2025 9:45 AM CDT Home Care Visit [facility] [address] [place] [address] Zackery Pickens RN DC ROUTINE VISIT 01/14/2025 Home Infusion [facility] [address] [place] [address] Kenroy Hicks RPh from Last 3 Months Immunizations Immunization Administration Dates Next Due Influenza, Quadrivalent, Hig [...] LINE PLACEMENT > 5 YEARS 01/28/2024 N/A APPENDECTOMY 08/21/2023 ABDOMINAL SURGERY 2023 HEMORRHOID SURGERY 2022 EXCHANGE PICC LINE 01/12/2025 Left RESECTION SMALL BOWEL / CLOSURE ILEOSTOMY 02/10/2025 Medical History Medical History Date Comments GERD (gastroesophageal reflux disease) Vomiting Colitis Diarrhea Chronic diarrhea IBS (irritable bowel syndrome) Allergic rhinitis Autoimmune disease Hyperlipemia Hypertension Acid reflux Crohn's disease (HCC) 2018 Hypothyroidism Anemia Arthritis Cataract History of transfusion Chronic bundle branch block Osteoporosis 2022 Joint pain Couple of years Fatigue 2022 Weight loss 2022 Family History Medical History Relation Name Comments Hypertension Father Samuel Stroke Father Samuel Crohn's disease Father's Sister Cousins on my dads gabriella e Lupus Mother Stomach cancer Paternal Grandfather Stroke Sister Cara Anesthesia problems Neg Hx Hip fracture Neg Hx Osteoporosis Neg Hx Relation Name Status Comments Father Samuel Father's Sister Cousins on my dads side Alive Mother Paternal Grandfather Sister Cara Social History [...] or isolation Patient unable to respond 11/06/2024 [facility] Utilities Answer Date Recorded In the past 12 months has [employer], [employer], or [employer] threatened to shut off services in your [...] often do you attend chur ch or yarsani services? 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 Gender Identity Female 04/17/2021 10:27 AM CDT Sexual Orientation Straight 04/17/2021 10 :27 AM CDT Obstetrics History Last Filed Vital Signs Vital Sign Reading Time Taken Comments Blood Pressure 120/72 04/13/2025 1:14 PM CDT Pulse 84 04/13/2025 1:14 PM CDT Temperature 37 C (98.6 F) 04/13/2025 1:14 PM CDT Respiratory Rate 16 04/13/2025 1:14 PM CDT Oxygen Saturation 98% 04/13/2025 1:14 PM CDT Inhaled Oxygen Concentration - - Weight 51.7 kg (114 lb) 04/13/2025 1:14 PM CDT Height 152.4 cm (5') 03/16/2025 2:55 PM CDT Body Mass Index 22.26 03/16/2025 2:55 PM CDT Plan of Treatment Health Maintenance Due Date Last Done Comments Breast Cancer Screening-Mammogram 1960 Zoster Vaccine (2 of 2) 04/09/2019 02/12/2019 Well Visit 65+ 2023 Depression Screening 08/15/2024 08/15/2023 Influenza Vaccine (#1) 2025 4, 05/13/2023, 06/12/2022, Additional history exists Pneumococcal vaccine 65+ (3 of 3 - PCV20 or PCV21) 04/26/2025 04/26/2020, 01/01/2019 Fall Risk Assessment 02/18/2026 02/18/2025 Osteoporosis Screening-Bone Density Scan 10/17/2026 10/17/2024 DTaP/Tdap/Td Vaccine (3 - Td or Tdap) 03/22/2027 03/22/2017, 07/05/2006 Colon Cancer Screening-Colonoscopy 12/04/2034 12/04/2024, 01/04/2024, 08/17/2023, Additional history exists Hepatitis C Screening Completed 02/23/2023 , 10/09/2020, 10/09/2020 Colon Cancer Screening-CT Colonography Discontinued 12/04/2024, 01/04/2024, 08/17/2023, Additional history exists Colon Cancer Screening-DNA Stool Discontinued 12/04/2024, 01/04/2024, 08/17/2023, Additional history exists Colon Cancer Screening-FIT Discontinued 12/04, 01/04/2024, 08/17/2023, Additional history exists Colon Cancer Screening-Sigmoidoscopy Discontinued 12/04/2024, 01/04/2024, 08/17/2023, Additional history exists Medical Devices Implanted Type Area Yard Demurrage Clerk Device Identifier Shelf Expiration Date Model / Serial / Lot Picc Line Implanted:Qty: 1 Other - see comments Right: Arm Procedures Procedure Name Priority Date/Time Associated Diagnosis Comments EGFR Routine 04/13/2025 1:50 PM CDT PHOSPHORUS Routine 04/13/2025 1:50 PM CDT MAGNESIUM Routine 04/13/2025 1:50 PM CDT GLUCOSE, RANDOM (OUTREACH) Routine 04/13/2025 1:50 PM CDT COMPREHENSIVE METABOLIC PANEL WITHOUT GLUCOSE (OUTREACH) Routine 04/13/2025 1:50 PM CDT EGFR STAT 04/06/2025 12:25 PM CDT URINALYSIS, MICROSCOPIC ONLY STAT 04/06/2025 12:25 PM CDT ALBUMIN CREATININE RATIO, URINE STAT 04/06/2025 12:25 PM CDT PHOSPHORUS STAT 04/06/2025 12:25 PM CDT MAGNESIUM STAT 04/06/2025 12:25 PM CDT GLUCOSE, RANDOM (OUTREACH) STAT 04/06/2025 12:25 PM CDT COMPREHENSIVE METABOLIC PANEL WITHOUT GLUCOSE (OUTREACH) STAT 04/06/2025 12:25 PM CDT URINALYSIS AND REFLEX TO MICROSCOPIC AND CULTURE STAT 04/06/2025 12:25 PM CDT EGFR Routine 03/30/2025 1:20 PM CDT VITAMIN D 25 HYDROXY Routine 03/30/2025 1:20 PM CDT PHOSPHORUS Routine 03/30/2025 1:20 PM CDT MAGNESIUM Routine 03/30/2025 1:20 PM CDT GLUCOSE, RANDOM (OUTREACH) Routine 03/30/2025 1:20 PM CDT COMPREHENSIVE METABOLIC PANEL WITHOUT GLUCOSE (OUTREACH) Routine 03/30/2025 1:20 PM CDT EGFR Routine 03/24/2025 1:30 PM CDT DIFFERENTIAL AUTO Routine 03/24/2025 1:3 0 PM CDT PHOSPHORUS Routine 03/24/2025 1:30 PM CDT MAGNESIUM Routine 03/24/2025 1:30 PM CDT CBC WITH AUTO DIFFERENTIAL Routine 03/24/2025 1:30 PM CDT COMPREHENSIVE METABOLIC PANEL Routine 03/24/2025 1:30 PM CDT EGFR STAT 03/16/2025 11:40 AM CDT PHOSPHORUS STAT 03/16/2025 11:40 AM CDT MAGNESIUM STAT 03/16/2025 11:40 AM CDT COMPREHENSIVE METABOLIC PANEL STAT 03/16/2025 11:40 AM CDT SCAN - LABS 03/13/2025 12:00 AM CDT EGFR STAT 03/09/2025 1:20 PM CDT MAGNESIUM STAT 03/09/2025 1:20 PM CDT PHOSPHORUS STAT 03/09/2025 1:20 PM CDT COMPREHENSIVE METABOLIC PANEL STAT 03/09/2025 1:20 PM CDT BLOOD MISC TO [place] Routine 03/02/2025 1: 30 PM CDT EGFR STAT 03/02/2025 1:30 PM CDT DIFFERENTIAL AUTO STAT 03/02/2025 1:3 0 PM CDT ALKALINE PHOSPHATASE, BONE SPECIFIC Routine 03/02/2025 1:30 PM CDT PHOSPHORUS STAT 03/02/2025 1:30 PM CDT MAGNESIUM STAT 03/02/2025 1:30 PM CDT CBC WITH AUTO DIFFERENTIAL STAT 03/02/2025 1:30 PM CDT COMPREHENSIVE METABOLIC PANEL STAT 03/02/2025 1:30 PM CDT EGFR STAT 02/23/2025 1:15 PM CDT DIFFERENTIAL AUTO STAT 02/23/2025 1:1 5 PM CDT PHOSPHORUS STAT 02/23/2025 1:15 PM CDT MAGNESIUM STAT 02/23/2025 1:15 PM CDT CBC WITH AUTO DIFFERENTIAL STAT 02/23/2025 1:15 PM CDT COMPREHENSIVE METABOLIC PANEL STAT 02/23/2025 1:15 PM CDT EGFR Timed 02/18/2025 12:45 AM CDT BASIC METABOLIC PANEL Timed 02/18/2025 12:45 AM CDT EGFR Timed 02/16/2025 10:09 PM CDT TYPE AND SCREEN Timed 02/16/2025 10:09 PM CDT BASIC METABOLIC PANEL Timed 02/16/2025 10:09 PM CDT CBC WITHOUT DIFFERENTIAL Timed 02/16/2025 10:09 PM CDT CBC WITHOUT DIFFERENTIAL Timed 02/16/2025 8:28 AM CDT EGFR Timed 02/15/2025 11:02 PM CDT BASIC METABOLIC PANEL Timed 02/15/2025 11:02 PM CDT BASIC METABOLIC PANEL Timed 02/15/2025 12:09 AM CDT EGFR Timed 02/15/2025 12:09 AM CDT PHOSPHORUS Timed 02/15/2025 12:09 AM CDT MAGNESIUM Timed 02/15/2025 12:09 AM CDT EGFR Routine 02/13/2025 11:22 PM CDT DIFFERENTIAL AUTO Timed 02/13/2025 11:22 PM CDT CBC WITH AUTO DIFFERENTIAL Timed 02/13/2025 11:22 PM CDT PHOSPHORUS Routine 02/13/2025 11:22 PM CDT MAGNESIUM Routine 02/13/2025 11:22 PM CDT BASIC METABOLIC PANEL Routine 02/13/2025 11:22 PM CDT EGFR Timed 02/13/2025 9:15 AM CDT DIFFERENTIAL AUTO Timed 02/13/2025 9:1 5 AM CDT BASIC METABOLIC PANEL Timed 02/13/2025 9:15 AM CDT CBC WITH AUTO DIFFERENTIAL Timed 02/13/2025 9:15 AM CDT XR ABDOMEN AP 1 VIEW IP Routine 02/13/2025 5:41 AM CDT POCT GLUCOSE DEVICE Routine 02/12/2025 12:04 AM CDT EGFR Timed 02/11/2025 10:02 PM CDT BASIC METABOLIC PANEL Timed 02/11/2025 10:02 PM CDT CBC WITHOUT DIFFERENTIAL Timed 02/11/2025 10:02 PM CDT EGFR Timed 02/10/2025 8:33 PM CDT BASIC METABOLIC PANEL Timed 02/10/2025 8:33 PM CDT CBC WITHOUT DIFFERENTIAL Timed 02/10/2025 8:33 PM CDT SURGICAL PATHOLOGY Routine 02/10/2025 11:09 AM CDT Ileostomy in place (HCC) NE AN PROCEDURE PLACEHOLDER Routine 02/10/2025 10:13 AM CDT NE AN ELECTIVE ENDOTRACHEAL AIRWAY Routine 02/10/2025 10:13 AM CDT CLOSURE ILEOSTOMY 02/10/2025 9:4 0 AM CDT Ileostomy in place ([facility]) Case Notes 02/09- move case up due to a case being rescheduled per Zahraa via phone call (EF) 01/26- office is adding procedure to case per Zahraa via case msg (EF) 01/22- moved case up to follow due to cancellation per Zahraa via case msg (EF) 01/07@01/13- Please deirdre this patient as not ready until further notice per Zahraa via case msg.[email or web address]- please deirdre this patient as not ready because she has to get more testing done first per office via case msg.EF RESECTION - ILEOCOLIC 02/10/2025 9:40 AM CDT Ileostomy in place ([facility]) Case Notes 02/09- move case up due to a case being rescheduled per Zahraa via phone call (EF) 01/26- office is adding procedure to case per Zahraa via case msg (EF) 01/22- moved case up to follow due to cancellation per Zahraa via case msg (EF) 01/07@01/13- Please deirdre this patient as not ready until further notice per Zahraa via case msg.[email or web address]- please deirdre this patient as not ready because she has to get more testing done first per office via case msg.EF REPAIR PARASTOMAL HERNIA 02/10/2025 9:40 AM CDT Ileostomy in place ([facility]) Case Notes 02/09- move case up due to a case being rescheduled per Zahraa via phone call (EF) 01/26- office is adding procedure to case per Zahraa via case msg (EF) 01/22- moved case up to follow due to cancellation per Zahraa via case msg (EF) 01/07@01/13- Please deirdre this patient as not ready until further notice per Zahraa via case msg.[email or web address]- please deirdre this patient as not ready because she has to get more testing done first per office via case msg.EF POC BLOOD GAS AND CHEMISTRIES, VENOUS Routine 02/10/2025 8:36 AM CDT EGFR STAT 02/09/2025 1:00 PM CDT DIFFERENTIAL AUTO STAT 02/09/2025 1:0 0 PM CDT PHOSPHORUS STAT 02/09/2025 1:00 PM CDT MAGNESIUM STAT 02/09/2025 1:00 PM CDT CBC WITH AUTO DIFFERENTIAL STAT 02/09/2025 1:00 PM CDT GLUCOSE, RANDOM (OUTREACH) STAT 02/09/2025 1:00 PM CDT COMPREHENSIVE METABOLIC PANEL WITHOUT GLUCOSE (OUTREACH) STAT 02/09/2025 1:00 PM CDT SCAN - LABS 02/09/2025 12:00 AM CDT EGFR STAT 02/02/2025 2:14 PM CDT PHOSPHORUS STAT 02/02/2025 2:14 PM CDT MAGNESIUM STAT 02/02/2025 2:14 PM CDT COMPREHENSIVE METABOLIC PANEL STAT 02/02/2025 2:14 PM CDT DIFFERENTIAL AUTO STAT 02/02/2025 1:3 0 PM CDT CBC WITH AUTO DIFFERENTIAL STAT 02/02/2025 1:30 PM CDT PREPARE RBC Timed 01/29/2025 3:19 PM CDT TYPE AND SCREEN 14 DAY Routine 01/29/2025 3:12 PM CDT Preoperative testing EGFR STAT 01/26/2025 10:30 AM CDT PHOSPHORUS STAT 01/26/2025 10:30 AM CDT MAGNESIUM STAT 01/26/2025 10:30 AM CDT GLUCOSE, RANDOM (OUTREACH) STAT 01/26/2025 10:30 AM CDT COMPREHENSIVE METABOLIC PANEL WITHOUT GLUCOSE (OUTREACH) STAT 01/26/2025 10:30 AM CDT CYTOMEGALOVIRUS (CMV) DNA, QUANT GEN LAB STAT 01/26/2025 10:30 AM CDT EGFR STAT 01/19/2025 1:15 PM CDT PHOSPHORUS STAT 01/19/2025 1:15 PM CDT MAGNESIUM STAT 01/19/2025 1:15 PM CDT COMPREHENSIVE METABOLIC PANEL STAT 01/19/2025 1:15 PM CDT SCAN - LABS 01/14/2025 12:00 AM CDT COLONOSCOPY 12/04/2024 12:25 PM CDT DEXA TBS AXIAL SKELETON BONE DENSITY 1 OR MORE SITES Schedule Routine, Read Routine (OP Routine) 10/17/2024 3:18 PM CDT Osteopenia of necks of both femurs HEPATITIS C ANTIBODY Routine 02/23/2023 11:47 AM CDT NAFLD (nonalcoholic fatty liver disease) Elevated liver enzymes from Last 3 Months or Most Recently Relevant to Health Maintenance Results * Glucose, random (Outreach) (04/13/2025 1:50 PM CDT) Glucose 116 70 - 199 mg/dL Comment: Interpretive Data [...] interpretive data was last revised 2022. Blood 04/13/2025 1:50 PM CDT 04/13/2025 3:50 PM CDT us Notinfile Unknown LAB BLOOD ORDERABLES Final Res ult Performing Organization Address [facility] Co de Phone Number MANDY [address] [place], [place] [id number] * eGFR (04/13/2025 1:50 PM CDT) eGFR 76 >=60 mL/min/1. 73 m2 Comment: Interpretive Data [...] interpretive data was last reviewed 2021. Blood 04/13/2025 1:50 PM CDT 04/13/2025 3:54 PM CDT us Notinfile Unknown LAB BLOOD ORDERABLES Final Res ult Performing Organization Address [facility] Co de Phone Number [facility] [address] [facility] [place] [address] * (ABNORMAL) Comprehensive metabolic panel, without glucose (Outreach) (04/13/2025 1:50 PM CDT) [facility] Sodium 135 135 - 145 mmol/L Potassium, pl 3.6 3.3 - 4.9 mmol/L [facility] Chloride 105 97 - 110 mmol/L [facility] CO2 17(L) 22 - 32 mmol/L [facility] Anion gap 13 2 - 15 mmol/L [facility] BUN 18 6 - 25 mg/dL [facility] Creatinine 0.85 0.60 - 1.10 mg/dL [facility] Calcium 9.1 8.5 - 10.3 mg/dL [facility] Protein, pl 7.7 6.5 - 8.5 g/dL [facility] Albumin 4.3 3.5 - 5.0 g/dL [facility] Bilirubin, total 0.4 0.1 - 1.2 mg/dL [facility] Alk phos 99 40 - 130 Units/L [facility] AST 35 10 - 45 Units/L [facility] ALT 28 7 - 45 Units/L [facility] Blood 04/13/2025 1:50 PM CDT 04/13/2025 3:50 PM CDT us Notinfile Unknown LAB BLOOD ORDERABLES Final Res ult Performing Organization Address [facility] Co de Phone Number [address] [place] [address] * Phosphorus (04/13/2025 1:50 PM CDT) [facility] Phosphorus, pl 4.0 2.3 - 4.5 mg/dL Blood 04/13/2025 1:50 PM CDT 04/13/2025 3:50 PM CDT us Notinfile Unknown LAB BLOOD ORDERABLES Final Res ult Performing Organization Address City/[facility] Co de Phone Number [address] [place] [address] * Magnesium (04/13/2025 1:50 PM CDT) [facility] Magnesium 2.0 1.4 - 2.5 mg/dL Blood 04/13/2025 1:50 PM CDT 04/13/2025 3:50 PM CDT us Notinfile Unknown LAB BLOOD ORDERABLES Final Res ult [facility] Department [place] [address] * Glucose, random (Outreach) (04/06/2025 12:25 PM CDT) Glucose 99 70 - 199 mg/dL Comment: Interpretive Data [...] interpretive data was last revised 2022. Blood 04/06/2025 12:2 5 PM CDT 04/06/2025 3:29 PM CDT us Notinfile Unknown LAB BLOOD ORDERABLES Final Res ult Performing Organization Address City/[facility] Co de Phone Number MANDY [facility] Department [place] [address] * eGFR (04/06/2025 12:25 PM CDT) eGFR 67 >=60 mL/min/1. 73 m2 Comment: Interpretive Data [...] interpretive data was last reviewed 2021. Blood 04/06/2025 12:2 5 PM CDT 04/06/2025 3:51 PM CDT us Notinfile Unknown LAB BLOOD ORDERABLES Final Res ult [facility] Department [place] [address] * (ABNORMAL) Comprehensive metabolic panel, without glucose (Outreach) (04/06/2025 12:25 PM CDT) Sodium 135 135 - 145 mmol/L Potassium, pl 3.7 3.3 - 4.9 mmol/L [facility] Chloride 104 97 - 110 mmol/L [facility] CO2 20(L) 22 - 32 mmol/L [facility] Anion gap 11 2 - 15 mmol/L [facility] BUN 14 6 - 25 mg/dL [facility] Creatinine 0.94 0.60 - 1.10 mg/dL [facility] Calcium 8.6 8.5 - 10.3 mg/dL [facility] Protein, pl 7.5 6.5 - 8.5 g/dL [facility] Albumin 4.1 3.5 - 5.0 g/dL [facility] Bilirubin, total 0.4 0.1 - 1.2 mg/dL [facility] Alk phos 94 40 - 130 Units/L [facility] AST 46(H) 10 - 45 Units/L [facility] ALT 33 7 - 45 Units/L [facility] Blood 04/06/2025 12:2 5 PM CDT 04/06/2025 3:29 PM CDT us Notinfile Unknown LAB BLOOD ORDERABLES Final Res ult MANDY ORDOÑEZ [facility] Department [place] [address] * (ABNORMAL) Urinalysis reflex to microscopic and culture Urine (04/06/2025 12:25 PM CDT) Color, ur Straw Yellow Clarity, ur Clear Clear [facility] Specific gravity, ur 1.007 1.003 - 1.030 [facility] pH, urine 6.0 [facility] Comment: Interpretive Data U rine pH is affected by diet, medications, systemic acid-base disturbances, and renal tubular function. pH may affect urinary stone formation. For example, urine pH below 6.0 may help reduce the tendency for calcium phosphate stones and pH greater than 6.0 may reduce the tendency for uric acid stone formation. Source: [facility] [employer] Current Interpretive Data was last revised on 2017 Protein, ur ql Negative Negative [facility] Glucose, ur ql Negative Negative [facility] Ketones, ur Negative Negative [facility] Bilirubin, ur Negative Negative [facility] Blood, ur Negative Negative [facility] Urobilinogen, ur <2.0 <2.0 mg/dL [facility] Nitrite, ur Negative Negative [facility] Leukocyte esterase, ur 2+(A) Negative [facility] UA reflex comment Reflex to microscopic UA will be performed. [facility] Urine 04/06/2025 12:2 5 PM CDT 04/06/2025 3:29 PM CDT us Notinfile Unknown LAB MICROBIOLOGY - GENERAL ORD ERABLES Final Result MANDY [facility] Department [place] [address] * Albumin Creatinine Ratio, Urine (04/06/2025 12:25 PM CDT) Albumin Ur <12.0 mg/L Comment: Interpretive Data No reference range established. Current interpretive data was last revised 2018. Creatinine Ur 59.0 mg/dL [facility] Comment: Interpretive Data No reference range established. Current interpretive data was last revised 2018. Albumin Creatinine Ratio, Ur <20 1 - 29 mg/g [facility] Urine 04/06/2025 12:2 5 PM CDT 04/06/2025 3:31 PM CDT us Notinfile Unknown LAB URINE ORDERABLES Final Res ult Performing Organization Address City/[facility] Co de Phone Number [facility] [place] [address] * (ABNORMAL) Urinalysis, microscopic only (04/06/2025 12:25 PM CDT) WBC, ur 0-5 0 - 5 /HPF RBC, ur 0-2 0 - 2 /HPF [facility] Epithelial cells, squamous, ur 6-10(A) 0 - 5 /HPF [facility] Comment:Suggestive of contam ination. Consider recollection by clean catch. Epithelial cells, renal, ur 1-5(A) 0 - 0 /HPF [facility] Epithelial cells, transitional, ur 1-5 0 - 0 /HPF [facility] Bacteria, ur Trace(A) [facility] Culture Reflex Comment Reflex conditions for urine culture (WBC >10) not met. [facility] Urine 04/06/2025 12:2 5 PM CDT 04/06/2025 3:29 PM CDT us Notinfile Unknown LAB URINE ORDERABLES Final Res ult Performing Organization Address [facility]/ZIP Co de Phone Number [facility] Department [place] [address] * Phosphorus (04/06/2025 12:25 PM CDT) Phosphorus, pl 4.1 2.3 - 4.5 mg/dL Blood 04/06/2025 12:2 5 PM CDT 04/06/2025 3:29 PM CDT us Notinfile Unknown LAB BLOOD ORDERABLES Final Res ult Performing Organization Address [facility] Co de Phone Number [facility] [place] [address] * Magnesium (04/06/2025 12:25 PM CDT) Magnesium 1.8 1.4 - 2.5 mg/dL Blood 04/06/2025 12:2 5 PM CDT 04/06/2025 3:29 PM CDT us Notinfile Unknown LAB BLOOD ORDERABLES Final Res ult Performing Organization Address [facility] de Phone Number [facility] [place] [address] * Glucose, random (Outreach) (03/30/2025 1:20 PM CDT) Glucose 119 70 - 199 mg/dL Comment: Interpretive Data [...] interpretive data was last revised 2022. Blood 03/30/2025 1:20 PM CDT 03/30/2025 2:44 PM CDT us Notinfile Unknown LAB BLOOD ORDERABLES Final Res ult Performing Organization Address [facility] de Phone Number [facility] [place] [address] * eGFR (03/30/2025 1:20 PM CDT) eGFR 70 >=60 mL/min/1. 73 m2 Comment: [...] interpretive data was last reviewed 2021. Blood 03/30/2025 1:20 PM CDT 03/30/2025 2:50 PM CDT us Notinfile Unknown LAB BLOOD ORDERABLES Final Res ult [facility] Department [place] [address] * (ABNORMAL) Comprehensive metabolic panel, without glucose (Outreach) (03/30/2025 1:20 PM CDT) Pathologist [facility] Sodium 138 135 - 145 mmol/L Potassium, pl 3.6 3.3 - 4.9 mmol/L [facility] Chloride 108 97 - 110 mmol/L [facility] CO2 20(L) 22 - 32 mmol/L [facility] Anion gap 10 2 - 15 mmol/L [facility] BUN 20 6 - 25 mg/dL [facility] Creatinine 0.91 0.60 - 1.10 mg/dL [facility] Calcium 8.5 8.5 - 10.3 mg/dL [facility] Protein, pl 7.4 6.5 - 8.5 g/dL [facility] Albumin 4.1 3.5 - 5.0 g/dL [facility] Bilirubin, total 0.4 0.1 - 1.2 mg/dL [facility] Alk phos 88 40 - 130 Units/L [facility] AST 32 10 - 45 Units/L [facility] ALT 36 7 - 45 Units/L [facility] Blood 03/30/2025 1:20 PM CDT 03/30/2025 2:44 PM CDT us Notinfile Unknown LAB BLOOD ORDERABLES Final Res ult Performing Organization Address [facility] Co de Phone Number [facility] [place] [address] * Vitamin D 25 hydroxy (03/30/2025 1:20 PM CDT) Pathologist [facility] Vitamin D 25-OH 40 30 - 80 ng/mL Blood 03/30/2025 1:20 PM CDT 03/30/2025 2:44 PM CDT us Notinfile Unknown LAB BLOOD ORDERABLES Final Res ult Performing Organization Address [facility] Co de Phone Number [facility] [place] [address] * Phosphorus (03/30/2025 1:20 PM CDT) Pathologist [facility] Phosphorus, pl 4.2 2.3 - 4.5 mg/dL Blood 03/30/2025 1:20 PM CDT 03/30/2025 2:44 PM CDT us Notinfile Unknown LAB BLOOD ORDERABLES Final Res ult Performing Organization Address [facility] Co de Phone Number [facility] [place] [address] * Magnesium (03/30/2025 1:20 PM CDT) Magnesium 1.8 1.4 - 2.5 mg/dL Blood 03/30/2025 1:20 PM CDT 03/30/2025 2:44 PM CDT us Notinfile Unknown LAB BLOOD ORDERABLES Final Res ult MANDY RIVAS [facility] Department [place] [address] * eGFR (03/24/2025 1:30 PM CDT) eGFR 84 >=60 mL/min/1. 73 m2 Comment: [...] interpretive data was last reviewed 2021. Blood 03/24/2025 1:30 PM CDT 03/24/2025 2:33 PM CDT us Notinfile Unknown LAB BLOOD ORDERABLES Final Res ult MANDY [address] [facility] Department [place] [address] * Differential, auto (03/24/2025 1:30 PM CDT) Neutrophil abs 4.57 1.50 - 6.50 K/cumm Imm gran abs 0.04 0.00 - 0.10 K/cumm [facility] Lymphocyte abs 1.87 0.80 - 3.30 K/cumm [facility] Monocyte abs 0.56 0.20 - 0.80 K/cumm [facility] Eosinophil abs 0.03 0.00 - 0.50 K/cumm [facility] Basophil abs 0.03 0.00 - 0.10 K/cumm [facility] Neutrophil pct 64.4 % [facility] Comment: Interpretive Data Percent cell count reference ranges are not reported, since discordance with absolute values may lead to misinterpretation of CBC data. Current Interpretive Data was last revised on 2017. Imm gran pct 0.6 % [facility] Comment: Interpretive Data Percent cell count reference ranges are not reported, since discordance with absolute values may lead to misinterpretation of CBC data. Current Interpretive Data was last revised on 2017. Lymphocyte pct 26.3 % [facility] Comment: Interpretive Data Percent cell count reference ranges are not reported, since discordance with absolute values may lead to misinterpretation of CBC data. Current Interpretive Data was last revised on 2017. Monocyte pct 7.9 % [facility] Comment: Interpretive Data Percent cell count reference ranges are not reported, since discordance with absolute values may lead to misinterpretation of CBC data. Current Interpretive Data was last revised on 2017. Eosinophil pct 0.4 % [facility] Comment: Interpretive Data Percent cell count reference ranges are not reported, since discordance with absolute values may lead to misinterpretation of CBC data. Current Interpretive Data was last revised on 2017. Basophil pct 0.4 % [facility] Comment: Interpretive Data Percent cell count reference ranges are not reported, since discordance with absolute values may lead to misinterpretation of CBC data. Current Interpretive Data was last revised on 2017. Blood 03/24/2025 1:30 PM CDT 03/24/2025 2:33 PM CDT us Notinfile Unknown LAB BLOOD ORDERABLES Final Res ult [address] [address] * (ABNORMAL) CBC with auto differential (03/24/2025 1:30 PM CDT) [facility] WBC 7.10 3.80 - 9.90 K/cumm Hgb 9.2(L) 11.9 - 15.5 g/dL [facility] Hct 29.0(L) 35.6 - 45.5 % [facility] Plt 221 150 - 400 K/cumm [facility] MPV 10.0 9.1 - 12.3 fL [facility] RBC 3.31(L) 3.90 - 5.20 M/cumm [facility] MCV 87.6 81.3 - 96.4 fL [facility] MCH 27.8 27.1 - 33.3 pg [facility] MCHC 31.7(L) 32.3 - 35.7 g/dL [facility] RDW CV 13.6 11.1 - 14.9 % [facility] RDW SD 43.5 35.7 - 48.1 fL [facility] NRBC abs 0.00 0.00 - 0.01 K/cumm [facility] Blood 03/24/2025 1:30 PM CDT 03/24/2025 2:33 PM CDT us Notinfile Unknown LAB BLOOD ORDERABLES Final Res ult Performing Organization Address [facility] Co de Phone Number [address] [address] * Phosphorus (03/24/2025 1:30 PM CDT) [facility] Phosphorus, pl 3.2 2.3 - 4.5 mg/dL Blood 03/24/2025 1:30 PM CDT 03/24/2025 2:33 PM CDT us Notinfile Unknown LAB BLOOD ORDERABLES Final Res ult Performing Organization Address [facility] Co de Phone Number [address] [address] * (ABNORMAL) Magnesium (03/24/2025 1:30 PM CDT) Magnesium 2.6(H) 1.4 - 2.5 mg/dL Blood 03/24/2025 1:30 PM CDT 03/24/2025 2:33 PM CDT us Notinfile Unknown LAB BLOOD ORDERABLES Final Res ult [facility] [address] [facility] Department [place] [address] * (ABNORMAL) Comprehensive metabolic panel (03/24/2025 1:30 PM CDT) Pathologist [facility] Sodium 136 135 - 145 mmol/L Potassium, pl 4.4 3.3 - 4.9 mmol/L [facility] Chloride 103 97 - 110 mmol/L [facility] CO2 20(L) 22 - 32 mmol/L [facility] Anion gap 13 2 - 15 mmol/L [facility] BUN 31(H) 6 - 25 mg/dL [facility] Creatinine 0.78 0.60 - 1.10 mg/dL [facility] Glucose 97 70 - 199 mg/dL [facility] Comment: Interpretive Data Fasting glucose >/= [...] interpretive data was last revised 2022. Calcium 9.4 8.5 - 10.3 mg/dL [facility] Bilirubin, total 0.3 0.1 - 1.2 mg/dL [facility] Protein, pl 8.0 6.5 - 8.5 g/dL [facility] Albumin 4.6 3.5 - 5.0 g/dL [facility] Alk phos 94 40 - 130 Units/L [facility] ALT 28 7 - 45 Units/L [facility] AST 30 10 - 45 Units/L [facility] Blood 03/24/2025 1:30 PM CDT 03/24/2025 2:33 PM CDT us Notinfile Unknown LAB BLOOD ORDERABLES Final Res ult Performing Organization Address [facility] Co de Phone Number [address] [place] [address] * eGFR (03/16/2025 11:40 AM CDT) eGFR 79 >=60 mL/min/1. 73 m2 Comment: Interpretive Data [...] interpretive data was last reviewed 2021. Blood 03/16/2025 11:4 0 AM CDT 03/16/2025 12:47 PM CDT us Notinfile Unknown LAB BLOOD ORDERABLES Final Res ult Performing Organization Address [facility] Co de Phone Number [address] [place] [address] * Phosphorus (03/16/2025 11:40 AM CDT) Phosphorus, pl 4.0 2.3 - 4.5 mg/dL Blood 03/16/2025 11:4 0 AM CDT 03/16/2025 12:47 PM CDT us Notinfile Unknown LAB BLOOD ORDERABLES Final Res ult Performing Organization Address City/[facility] Co de Phone Number [address] [address] * Magnesium (03/16/2025 11:40 AM CDT) Pathologist [facility] Magnesium 1.9 1.4 - 2.5 mg/dL Blood 03/16/2025 11:4 0 AM CDT 03/16/2025 12:47 PM CDT us Notinfile Unknown LAB BLOOD ORDERABLES Final Res ult Performing Organization Address [facility] de Phone Number [address] [address] * (ABNORMAL) Comprehensive metabolic panel (03/16/2025 11:40 AM CDT) Pathologist [facility] Sodium 136 135 - 145 mmol/L Potassium, pl 3.5 3.3 - 4.9 mmol/L [facility] Chloride 105 97 - 110 mmol/L [facility] CO2 19(L) 22 - 32 mmol/L [facility] Anion gap 12 2 - 15 mmol/L [facility] BUN 14 6 - 25 mg/dL [facility] Creatinine 0.82 0.60 - 1.10 mg/dL [facility] Glucose 112 70 - 199 mg/dL [facility] Comment: Interpretive Data Fasting glucose >/= [...] interpretive data was last revised 2022. Calcium 9.0 8.5 - 10.3 mg/dL [facility] Bilirubin, total 0.4 0.1 - 1.2 mg/dL [facility] Protein, pl 7.5 6.5 - 8.5 g/dL [facility] Albumin 4.4 3.5 - 5.0 g/dL [facility] Alk phos 93 40 - 130 Units/L [facility] ALT 16 7 - 45 Units/L [facility] AST 29 10 - 45 Units/L [facility] Blood 03/16/2025 11:4 0 AM CDT 03/16/2025 12:47 PM CDT us Notinfile Unknown LAB BLOOD ORDERABLES Final Res ult MANDY [address] [facility] Department [place] [address] * SCAN - LABS (03/13/2025 12:00 AM CDT) us Provider Scanning Final Result * eGFR (03/09/2025 1:20 PM CDT) eGFR 64 >=60 mL/min/1. 73 m2 Comment: Interpretive Data [...] interpretive data was last reviewed 2021. Blood 03/09/2025 1:20 PM CDT 03/09/2025 2:01 PM CDT us Notinfile Unknown LAB BLOOD ORDERABLES Final Res ult Performing Organization Address [facility] Co de Phone Number [address] [address] * Phosphorus (03/09/2025 1:20 PM CDT) Pathologist [facility] Phosphorus, pl 4.2 2.3 - 4.5 mg/dL Blood 03/09/2025 1:20 PM CDT 03/09/2025 2:01 PM CDT us Notinfile Unknown LAB BLOOD ORDERABLES Final Res ult Performing Organization Address [facility] de Phone Number [address] [address] * Magnesium (03/09/2025 1:20 PM CDT) [facility] Magnesium 2.0 1.4 - 2.5 mg/dL Blood 03/09/2025 1:20 PM CDT 03/09/2025 2:01 PM CDT Notinfile Unknown LAB BLOOD ORDERABLES Final Res ult Performing Organization Address [facility] de Phone Number [address] [place] [address] * (ABNORMAL) Comprehensive metabolic panel (03/09/2025 1:20 PM CDT) [facility] Sodium 138 135 - 145 mmol/L Potassium, pl 3.5 3.3 - 4.9 mmol/L [facility] Chloride 109 97 - 110 mmol/L [facility] CO2 18(L) 22 - 32 mmol/L [facility] Anion gap 11 2 - 15 mmol/L [facility] BUN 8 6 - 25 mg/dL [facility] Creatinine 0.98 0.60 - 1.10 mg/dL [facility] Glucose 102 70 - 199 mg/dL [facility] Comment: Interpretive Data Fasting glucose >/= [...] interpretive data was last revised 2022. Calcium 8.8 8.5 - 10.3 mg/dL [facility] Bilirubin, total 0.4 0.1 - 1.2 mg/dL [facility] Protein, pl 7.2 6.5 - 8.5 g/dL [facility] Albumin 4.2 3.5 - 5.0 g/dL [facility] Alk phos 96 40 - 130 Units/L [facility] ALT 24 7 - 45 Units/L [facility] AST 37 10 - 45 Units/L [facility] Blood 03/09/2025 1:20 PM CDT 03/09/2025 2:01 PM CDT us Notinfile Unknown LAB BLOOD ORDERABLES Final Res ult [facility] [address] [facility] Department [place] [address] * BLOOD MISC TO [place] (03/02/2025 1:30 PM CDT) Test name, chem PINP,Procoll agen I Intact N-Terminal, Serum [employer] ref Lab Misc See Footnote MANDY Comment: Test Result Flag Unit RefValue Procollagen I Intact N- 68 mcg/L Terminal, S REFERENCE VALUE Premenopausal: Postmenopausal: [id number] Test Performed by: [facility] [address] [place] [address] Currency Exchange Specialist: Jimena Catalan Ph.D.; CLIA# [id number] Blood 03/02/2025 1:30 PM CDT 03/02/2025 4:27 PM CDT us Luis Miguel Medina MD LAB BLOOD ORDERABLES Final R esult Performing Organization Address City/[facility]/ZIP Co de Phone Number MANDY [address] [facility] Department [place] [address] [facility] ref [facility] * eGFR (03/02/2025 1:30 PM CDT) eGFR 74 >=60 mL/min/1. 73 m2 Comment: Interpretive Data [...] interpretive data was last reviewed 2021. Blood 03/02/2025 1:30 PM CDT 03/02/2025 3:10 PM CDT us Notinfile Unknown LAB BLOOD ORDERABLES Final Res ult MANDY HE [address] [facility] Department [place] [address] * Differential, auto (03/02/2025 1:30 PM CDT) Neutrophil abs 2.74 1.50 - 6.50 K/cumm Imm gran abs 0.02 0.00 - 0.10 K/cumm [facility] Lymphocyte abs 1.86 0.80 - 3.30 K/cumm [facility] Monocyte abs 0.25 0.20 - 0.80 K/cumm [facility] Eosinophil abs 0.13 0.00 - 0.50 K/cumm [facility] Basophil abs 0.02 0.00 - 0.10 K/cumm [facility] Neutrophil pct 54.5 % [facility] Comment: Interpretive Data Percent cell count reference ranges are not reported, since discordance with absolute values may lead to misinterpretation of CBC data. Current Interpretive Data was last revised on 2017. Imm gran pct 0.4 % [facility] Comment: Interpretive Data Percent cell count reference ranges are not reported, since discordance with absolute values may lead to misinterpretation of CBC data. Current Interpretive Data was last revised on 2017. Lymphocyte pct 37.1 % [facility] Comment: Interpretive Data Percent cell count reference ranges are not reported, since discordance with absolute values may lead to misinterpretation of CBC data. Current Interpretive Data was last revised on 2017. Monocyte pct 5.0 % [facility] Comment: Interpretive Data Percent cell count reference ranges are not reported, since discordance with absolute values may lead to misinterpretation of CBC data. Current Interpretive Data was last revised on 2017. Eosinophil pct 2.6 % [facility] Comment: Interpretive Data Percent cell count reference ranges are not reported, since discordance with absolute values may lead to misinterpretation of CBC data. Current Interpretive Data was last revised on 2017. Basophil pct 0.4 % [facility] Comment: Interpretive Data Percent cell count reference ranges are not reported, since discordance with absolute values may lead to misinterpretation of CBC data. Current Interpretive Data was last revised on 2017. Blood 03/02/2025 1:30 PM CDT 03/02/2025 3:10 PM CDT Notinfile Unknown LAB BLOOD ORDERABLES Final Res ult Performing Organization Address [facility] Co de Phone Number MANDY [address] [place] [address] * (ABNORMAL) CBC with auto differential (03/02/2025 1:30 PM CDT) [facility] WBC 5.02 3.80 - 9.90 K/cumm Hgb 8.5(L) 11.9 - 15.5 g/dL [facility] Hct 26.1(L) 35.6 - 45.5 % [facility] Plt 188 150 - 400 K/cumm [facility] MPV 9.8 9.1 - 12.3 fL [facility] RBC 2.93(L) 3.90 - 5.20 M/cumm [facility] MCV 89.1 81.3 - 96.4 fL [facility] MCH 29.0 27.1 - 33.3 pg [facility] MCHC 32.6 32.3 - 35.7 g/dL [facility] RDW CV 14.1 11.1 - 14.9 % [facility] RDW SD 45.5 35.7 - 48.1 fL [facility] NRBC abs 0.00 0.00 - 0.01 K/cumm [facility] Blood 03/02/2025 1:30 PM CDT 03/02/2025 3:10 PM CDT Notinfile Unknown LAB BLOOD ORDERABLES Final Res ult Performing Organization Address [facility] Co de Phone Number MANDY [address] [employer] [place], [place] [id number] * Alkaline phosphatase, bone specific (03/02/2025 1:30 PM CDT) [facility] Alk phos, bone 14 mcg/L [facility] Comment: REFERENCE VALUE <=14 (Premenopausal) <=22 (Postmenopausal) ADDITIONAL INFORMATION Liver-derived alkaline phosphatase (ALP) increases apparent measured bone alkaline phosphatase (BAP) in this assay by 2.5 mcg/L to 5.8 mcg/L for every 100 U/L of liver ALP. Accordingly, serum specimens with significant elevations of liver ALP activity may yield artificially elevated results in the BAP assay. Test Performed by: [facility] [address] [place] [address] Currency Exchange Specialist: Jimena Catalan Ph.D.; CLIA# [id number] Blood 03/02/2025 1:30 PM CDT 03/02/2025 3:09 PM CDT Notinfile Unknown LAB BLOOD ORDERABLES Final Res ult Performing Organization Address City/[facility] Co de Phone Number СЕРГЕЙ[address] [place] [address] [facility] * Phosphorus (03/02/2025 1:30 PM CDT) Pathologist [facility] Phosphorus, pl 3.7 2.3 - 4.5 mg/dL Blood 03/02/2025 1:30 PM CDT 03/02/2025 3:10 PM CDT Notinfile Unknown LAB BLOOD ORDERABLES Final Res ult Performing Organization Address [facility] Co de Phone Number СЕРГЕЙ[address] [place] [address] * Magnesium (03/02/2025 1:30 PM CDT) [facility] Magnesium 2.0 1.4 - 2.5 mg/dL Blood 03/02/2025 1:30 PM CDT 03/02/2025 3:10 PM CDT us Notinfile Unknown LAB BLOOD ORDERABLES Final Res ult MANDY [address] Department [place] [address] * (ABNORMAL) Comprehensive metabolic panel (03/02/2025 1:30 PM CDT) Sodium 137 135 - 145 mmol/L Potassium, pl 3.5 3.3 - 4.9 mmol/L [facility] Chloride 107 97 - 110 mmol/L [facility] CO2 18(L) 22 - 32 mmol/L [facility] Anion gap 12 2 - 15 mmol/L [facility] BUN 12 6 - 25 mg/dL [facility] Creatinine 0.86 0.60 - 1.10 mg/dL [facility] Glucose 97 70 - 199 mg/dL [facility] Comment: Interpretive Data Fasting glucose >/= [...] interpretive data was last revised 2022. Calcium 9.0 8.5 - 10.3 mg/dL [facility] Bilirubin, total 0.4 0.1 - 1.2 mg/dL [facility] Protein, pl 7.4 6.5 - 8.5 g/dL [facility] Albumin 4.2 3.5 - 5.0 g/dL [facility] Alk phos 100 40 - 130 Units/L [facility] ALT 21 7 - 45 Units/L [facility] AST 30 10 - 45 Units/L [facility] Blood 03/02/2025 1:30 PM CDT 03/02/2025 3:10 PM CDT us Notinfile Unknown LAB BLOOD ORDERABLES Final Res ult MANDY HE [address] Department [place] [address] * eGFR (02/23/2025 1:15 PM CDT) [facility] eGFR 73 >=60 mL/min/1. 73 m2 Comment: Interpretive Data [...] interpretive data was last reviewed 2021. Blood 02/23/2025 1:15 PM CDT 02/23/2025 2:25 PM CDT us Notinfile Unknown LAB BLOOD ORDERABLES Final Res ult MANDY HE [address] [facility] [place] [address] * Differential, auto (02/23/2025 1:15 PM CDT) [facility] Neutrophil abs 2.32 1.50 - 6.50 K/cumm Imm gran abs 0.07 0.00 - 0.10 K/cumm [facility] Lymphocyte abs 2.25 0.80 - 3.30 K/cumm [facility] Monocyte abs 0.33 0.20 - 0.80 K/cumm [facility] Eosinophil abs 0.16 0.00 - 0.50 K/cumm [facility] Basophil abs 0.04 0.00 - 0.10 K/cumm [facility] Neutrophil pct 44.8 % [facility] Comment: Interpretive Data Percent cell count reference ranges are not reported, since discordance with absolute values may lead to misinterpretation of CBC data. Current Interpretive Data was last revised on 2017. Imm gran pct 1.4 % [facility] Comment: Interpretive Data Percent cell count reference ranges are not reported, since discordance with absolute values may lead to misinterpretation of CBC data. Current Interpretive Data was last revised on 2017. Lymphocyte pct 43.5 % [facility] Comment: Interpretive Data Percent cell count reference ranges are not reported, since discordance with absolute values may lead to misinterpretation of CBC data. Current Interpretive Data was last revised on 2017. Monocyte pct 6.4 % [facility] Comment: Interpretive Data Percent cell count reference ranges are not reported, since discordance with absolute values may lead to misinterpretation of CBC data. Current Interpretive Data was last revised on 2017. Eosinophil pct 3.1 % [facility] Comment: Interpretive Data Percent cell count reference ranges are not reported, since discordance with absolute values may lead to misinterpretation of CBC data. Current Interpretive Data was last revised on 2017. Basophil pct 0.8 % [facility] Comment: Interpretive Data Percent cell count reference ranges are not reported, since discordance with absolute values may lead to misinterpretation of CBC data. Current Interpretive Data was last revised on 2017. Blood 02/23/2025 1:15 PM CDT 02/23/2025 2:25 PM CDT us Notinfile Unknown LAB BLOOD ORDERABLES Final Res ult [facility] [address] [facility] Department [place] [address] * (ABNORMAL) CBC with auto differential (02/23/2025 1:15 PM CDT) WBC 5.17 3.80 - 9.90 K/cumm Hgb 7.8(L) 11.9 - 15.5 g/dL [facility] Hct 23.7(L) 35.6 - 45.5 % [facility] Plt 200 150 - 400 K/cumm [facility] MPV 9.4 9.1 - 12.3 fL [facility] RBC 2.70(L) 3.90 - 5.20 M/cumm [facility] MCV 87.8 81.3 - 96.4 fL [facility] MCH 28.9 27.1 - 33.3 pg [facility] MCHC 32.9 32.3 - 35.7 g/dL [facility] RDW CV 13.8 11.1 - 14.9 % [facility] RDW SD 44.3 35.7 - 48.1 fL [facility] NRBC abs 0.00 0.00 - 0.01 K/cumm [facility] Blood 02/23/2025 1:15 PM CDT 02/23/2025 2:25 PM CDT us Notinfile Unknown LAB BLOOD ORDERABLES Final Res ult Performing Organization Address [facility] de Phone Number [address] [place] [address] * Phosphorus (02/23/2025 1:15 PM CDT) Phosphorus, pl 2.9 2.3 - 4.5 mg/dL Blood 02/23/2025 1:15 PM CDT 02/23/2025 2:25 PM CDT us Notinfile Unknown LAB BLOOD ORDERABLES Final Res ult Performing Organization Address [facility] de Phone Number [address] [place] [address] * Magnesium (02/23/2025 1:15 PM CDT) Magnesium 2.1 1.4 - 2.5 mg/dL Blood 02/23/2025 1:15 PM CDT 02/23/2025 2:25 PM CDT us Notinfile Unknown LAB BLOOD ORDERABLES Final Res ult Performing Organization Address [facility]/State/ZIP Co de Phone Number MANDY [address] [facility] Department [place] [address] * (ABNORMAL) Comprehensive metabolic panel (02/23/2025 1:15 PM CDT) Sodium 136 135 - 145 mmol/L Potassium, pl 3.2(L) 3.3 - 4.9 mmol/L [facility] Chloride 108 97 - 110 mmol/L [facility] CO2 16(L) 22 - 32 mmol/L [facility] Anion gap 12 2 - 15 mmol/L [facility] BUN 14 6 - 25 mg/dL [facility] Creatinine 0.87 0.60 - 1.10 mg/dL [facility] Glucose 99 70 - 199 mg/dL [facility] Comment: Interpretive Data Fasting glucose >/= [...] 2022. Calcium 8.6 8.5 - 10.3 mg/dL [facility] Bilirubin, total 0.3 0.1 - 1.2 mg/dL [facility] Protein, pl 7.4 6.5 - 8.5 g/dL [facility] Albumin 4.1 3.5 - 5.0 g/dL [facility] Alk phos 108 40 - 130 Units/L [facility] ALT 26 7 - 45 Units/L [facility] AST 39 10 - 45 Units/L [facility] Blood 02/23/2025 1:15 PM CDT 02/23/2025 2:25 PM CDT us Notinfile Unknown LAB BLOOD ORDERABLES Final Res ult MANDY [address] [facility] Department [place] [address] * (ABNORMAL) eGFR (02/18/2025 12:45 AM CDT) eGFR 55(L) >=60 mL/min/1. 73 m2 Comment: Interpretive Data [...] interpretive data was last reviewed 2021. Blood 02/18/2025 12:4 5 AM CDT 02/18/2025 1:46 AM CDT Tawana English NP LAB BLOOD ORDERABLES Candi wilhelm Result [facility] Department [place] [address] * (ABNORMAL) Basic metabolic panel (02/18/2025 12:45 AM CDT) Pathologist [facility] Sodium 134(L) 135 - 145 mmol/L Potassium, pl 3.7 3.3 - 4.9 mmol/L [facility] Chloride 104 97 - 110 mmol/L [facility] CO2 18(L) 22 - 32 mmol/L [facility] Anion gap 12 2 - 15 mmol/L [facility] BUN 27(H) 6 - 25 mg/dL [facility] Creatinine 1.10 0.60 - 1.10 mg/dL [facility] Glucose 100 70 - 199 mg/dL [facility] Comment: Interpretive Data Fasting glucose >/= 126 [...] 2022. Calcium 8.6 8.5 - 10.3 mg/dL [facility] Blood 02/18/2025 12:4 5 AM CDT 02/18/2025 1:46 AM CDT us Tawana English NP LAB BLOOD ORDERABLES Candi l Result [facility] Department [place] [address] * (ABNORMAL) eGFR (02/16/2025 10:09 PM CDT) eGFR 51(L) >=60 mL/min/1. 73 m2 Comment: Interpretive Data [...] interpretive data was last reviewed 2021. Blood 02/16/2025 10:0 9 PM CDT 02/16/2025 10:55 PM CDT Tawana English SERVICING REP LAB BLOOD ORDERABLES Candi choco Result Performing Organization Address [facility] Co de Phone Number [facility] Department [place] [address] * (ABNORMAL) CBC without differential (02/16/2025 10:09 PM CDT) Pathologist [facility] WBC 5.26 3.80 - 9.90 K/cumm Hgb 8.2(L) 11.9 - 15.5 g/dL [facility] Hct 25.4(L) 35.6 - 45.5 % [facility] Plt 173 150 - 400 K/cumm [facility] MPV 10.3 9.1 - 12.3 fL [facility] RBC 2.81(L) 3.90 - 5.20 M/cumm [facility] MCV 90.4 81.3 - 96.4 fL [facility] MCH 29.2 27.1 - 33.3 pg [facility] MCHC 32.3 32.3 - 35.7 g/dL [facility] RDW CV 14.2 11.1 - 14.9 % [facility] RDW SD 47.8 35.7 - 48.1 fL [facility] NRBC abs 0.00 0.00 - 0.01 K/cumm [facility] Blood 02/16/2025 10:0 9 PM CDT 02/16/2025 11:11 PM CDT Tawana English SERVICING REP LAB BLOOD ORDERABLES Candi l Result Performing Organization Address City/[facility]/ZIP Co de Phone Number [facility] Department [place] [address] * Type and screen (02/16/2025 10:09 PM CDT) Pathologist [facility] Gregory, indirect Negative Comment:Patient has previous antibody history ABO Rh B Positive [facility] Blood 02/16/2025 10:0 9 PM CDT 02/16/2025 10:48 PM CDT Narrative [facility] - 02/16/2025 11:41 PM CDT Has the patient had Daratumumab or Isatuximab in the past 6 months?->Unknown Tawana English NP LAB BLOOD BANK TEST ORDER BACILIO Final Result [facility] [place] [address] * (ABNORMAL) Basic metabolic panel (02/16/2025 10:09 PM CDT) Pathologist [facility] Sodium 136 135 - 145 mmol/L Potassium, pl 3.7 3.3 - 4.9 mmol/L [facility] Chloride 103 97 - 110 mmol/L [facility] CO2 22 22 - 32 mmol/L [facility] Anion gap 11 2 - 15 mmol/L [facility] BUN 27(H) 6 - 25 mg/dL [facility] Creatinine 1.17(H) 0.60 - 1.10 mg/dL [facility] Glucose 113 70 - 199 mg/dL [facility] Comment: Interpretive Data Fasting glucose >/= 126 [...] 2022. Calcium 9.3 8.5 - 10.3 mg/dL [facility] Blood 02/16/2025 10:0 9 PM CDT 02/16/2025 10:55 PM CDT Tawana Louie Amador SERVICING REP LAB BLOOD ORDERABLES Candi l Result Performing Organization Address [facility] de Phone Number [facility] Department [place] [address] * (ABNORMAL) CBC without differential (02/16/2025 8:28 AM CDT) [facility] WBC 3.33(L) 3.80 - 9.90 K/cumm Hgb 7.0(L) 11.9 - 15.5 g/dL [facility] Hct 21.6(L) 35.6 - 45.5 % [facility] Plt 142(L) 150 - 400 K/cumm [facility] MPV 10.7 9.1 - 12.3 fL [facility] RBC 2.27(L) 3.90 - 5.20 M/cumm [facility] MCV 95.2 81.3 - 96.4 fL [facility] MCH 30.8 27.1 - 33.3 pg [facility] MCHC 32.4 32.3 - 35.7 g/dL [facility] RDW CV 14.3 11.1 - 14.9 % [facility] RDW SD 49.3(H) 35.7 - 48.1 fL [facility] NRBC abs 0.00 0.00 - 0.01 K/cumm [facility] Blood 02/16/2025 8:28 AM CDT 02/16/2025 9:30 AM CDT Tawana English SERVICING REP LAB BLOOD ORDERABLES Candi l Result Performing Organization Address [facility] Co de Phone Number [facility] Department [place] [address] * eGFR (02/15/2025 11:02 PM CDT) [facility] eGFR 61 >=60 mL/min/1. 73 m2 Comment: Interpretive Data [...] interpretive data was last reviewed 2021. Blood 02/15/2025 11:0 2 PM CDT 02/16/2025 12:44 AM CDT us Luis Miguel Medina MD LAB BLOOD ORDERABLES Final R esult [facility] Department [place] [address] * Basic metabolic panel (02/15/2025 11:02 PM CDT) Sodium 138 135 - 145 mmol/L Potassium, pl 4.1 3.3 - 4.9 mmol/L [facility] Chloride 104 97 - 110 mmol/L [facility] CO2 24 22 - 32 mmol/L [facility] Anion gap 10 2 - 15 mmol/L [facility] BUN 21 6 - 25 mg/dL [facility] Creatinine 1.02 0.60 - 1.10 mg/dL [facility] Glucose 89 70 - 199 mg/dL [facility] Comment: Interpretive Data Fasting glucose >/= 126 [...] 2022. Calcium 8.7 8.5 - 10.3 mg/dL [facility] Blood 02/15/2025 11:0 2 PM CDT 02/16/2025 12:44 AM CDT Luis Miguel Medina MD LAB BLOOD ORDERABLES Final R esult Performing Organization Address City/[facility]/ZIP Co de Phone Number MANDY [facility] [place] [address] * eGFR (02/15/2025 12:09 AM CDT) eGFR 65 >=60 mL/min/1. 73 m2 Comment: Interpretive Data [...] interpretive data was last reviewed 2021. Blood 02/15/2025 12:0 9 AM CDT 02/15/2025 12:55 AM CDT Luis Miguel Medina MD LAB BLOOD ORDERABLES Final R esult MANDY [facility] [place] [address] * Phosphorus (02/15/2025 12:09 AM CDT) [facility] Phosphorus, pl 4.1 2.3 - 4.5 mg/dL Blood 02/15/2025 12:0 9 AM CDT 02/15/2025 12:45 AM CDT Luis Miguel Medina MD LAB BLOOD ORDERABLES Final R esult Performing Organization Address City/[facility] Co de Phone Number [facility] Department [place] [address] * Magnesium (02/15/2025 12:09 AM CDT) [facility] Magnesium 2.1 1.4 - 2.5 mg/dL Blood 02/15/2025 12:0 9 AM CDT 02/15/2025 12:45 AM CDT Luis Miguel Medina MD LAB BLOOD ORDERABLES Final R esult Performing Organization Address [facility] de Phone Number [facility] Department [place] [address] * Basic metabolic panel (02/15/2025 12:09 AM CDT) [facility] Sodium 136 135 - 145 mmol/L Potassium, pl 3.4 3.3 - 4.9 mmol/L [facility] Chloride 103 97 - 110 mmol/L [facility] CO2 25 22 - 32 mmol/L [facility] Anion gap 8 2 - 15 mmol/L [facility] BUN 17 6 - 25 mg/dL [facility] Creatinine 0.96 0.60 - 1.10 mg/dL [facility] Glucose 98 70 - 199 mg/dL [facility] Comment: Interpretive Data Fasting glucose >/= 126 [...] interpretive data was last revised 2022. Calcium 8.9 8.5 - 10.3 mg/dL [facility] Blood 02/15/2025 12:0 9 AM CDT 02/15/2025 12:45 AM CDT us Luis Miguel Medina MD LAB BLOOD ORDERABLES Final R esult Performing Organization Address City/[facility]/ZIP Co de Phone Number [facility] [place] [address] * eGFR (02/13/2025 11:22 PM CDT) eGFR 71 >=60 mL/min/1. 73 m2 Comment: [...] interpretive data was last reviewed 2021. Blood 02/13/2025 11:2 2 PM CDT 02/13/2025 11:45 PM CDT us Colleen Scott NP LAB BLOOD ORDERABLES Final Res ult Performing Organization Address City/[facility]/ZIP Co de Phone Number [facility] Department [place] [address] * Differential, auto (02/13/2025 11:22 PM CDT) Neutrophil abs 2.58 1.50 - 6.50 K/cumm Imm gran abs 0.03 0.00 - 0.10 K/cumm [facility] Lymphocyte abs 1.13 0.80 - 3.30 K/cumm [facility] Monocyte abs 0.47 0.20 - 0.80 K/cumm [facility] Eosinophil abs 0.27 0.00 - 0.50 K/cumm [facility] Basophil abs 0.02 0.00 - 0.10 K/cumm [facility] Neutrophil pct 57.4 % [facility] Comment: Interpretive Data Percent cell count reference ranges are not reported, since discordance with absolute values may lead to misinterpretation of CBC data. Current Interpretive Data was last revised on 2017. Imm gran pct 0.7 % [facility] Comment: Interpretive Data Percent cell count reference ranges are not reported, since discordance with absolute values may lead to misinterpretation of CBC data. Current Interpretive Data was last revised on 2017. Lymphocyte pct 25.1 % [facility] Comment: Interpretive Data Percent cell count reference ranges are not reported, since discordance with absolute values may lead to misinterpretation of CBC data. Current Interpretive Data was last revised on 2017. Monocyte pct 10.4 % [facility] Comment: Interpretive Data Percent cell count reference ranges are not reported, since discordance with absolute values may lead to misinterpretation of CBC data. Current Interpretive Data was last revised on 2017. Eosinophil pct 6.0 % [facility] Comment: Interpretive Data Percent cell count reference ranges are not reported, since discordance with absolute values may lead to misinterpretation of CBC data. Current Interpretive Data was last revised on 2017. Basophil pct 0.4 % [facility] Comment: Interpretive Data Percent cell count reference ranges are not reported, since discordance with absolute values may lead to misinterpretation of CBC data. Current Interpretive Data was last revised on 2017. Blood 02/13/2025 11:2 2 PM CDT 02/13/2025 11:45 PM CDT Colleen Scott SERVICING REP LAB BLOOD ORDERABLES Final Res ult MANDY [facility] [place] [address] * (ABNORMAL) CBC with auto differential (02/13/2025 11:22 PM CDT) Pathologist [facility] WBC 4.50 3.80 - 9.90 K/cumm Hgb 7.9(L) 11.9 - 15.5 g/dL [facility] Hct 24.2(L) 35.6 - 45.5 % [facility] Plt 165 150 - 400 K/cumm [facility] MPV 9.8 9.1 - 12.3 fL [facility] RBC 2.75(L) 3.90 - 5.20 M/cumm [facility] MCV 88.0 81.3 - 96.4 fL [facility] MCH 28.7 27.1 - 33.3 pg [facility] MCHC 32.6 32.3 - 35.7 g/dL [facility] RDW CV 14.6 11.1 - 14.9 % [facility] RDW SD 47.3 35.7 - 48.1 fL [facility] NRBC abs 0.00 0.00 - 0.01 K/cumm [facility] Blood 02/13/2025 11:2 2 PM CDT 02/13/2025 11:45 PM CDT Colleen Scott SERVICING REP LAB BLOOD ORDERABLES Final Res ult [facility] [place] [address] * Phosphorus (02/13/2025 11:22 PM CDT) Pathologist [facility] Phosphorus, pl 3.5 2.3 - 4.5 mg/dL Blood 02/13/2025 11:2 2 PM CDT 02/13/2025 11:45 PM CDT Colleen Scott SERVICING REP LAB BLOOD ORDERABLES Final Res ult Performing Organization Address City/[facility]/ZIP Co de Phone Number [facility] [place] [address] * Magnesium (02/13/2025 11:22 PM CDT) Pathologist [facility] Magnesium 2.0 1.4 - 2.5 mg/dL Blood 02/13/2025 11:2 2 PM CDT 02/13/2025 11:45 PM CDT Colleen Scott SERVICING REP LAB BLOOD ORDERABLES Final Res ult Performing Organization Address [facility] de Phone Number [facility] [place] [address] * Basic metabolic panel (02/13/2025 11:22 PM CDT) [facility] Sodium 136 135 - 145 mmol/L Potassium, pl 3.4 3.3 - 4.9 mmol/L [facility] Chloride 101 97 - 110 mmol/L [facility] CO2 24 22 - 32 mmol/L [facility] Anion gap 11 2 - 15 mmol/L [facility] BUN 14 6 - 25 mg/dL [facility] Creatinine 0.90 0.60 - 1.10 mg/dL [facility] Glucose 96 70 - 199 mg/dL [facility] Comment: Interpretive Data Fasting glucose >/= 126 [...] 2022. Calcium 8.7 8.5 - 10.3 mg/dL [facility] Blood 02/13/2025 11:2 2 PM CDT 02/13/2025 11:45 PM CDT Colleen Scott SERVICING REP LAB BLOOD ORDERABLES Final Res ult Performing Organization Address [facility] Co de Phone Number [facility] [place] [address] * eGFR (02/13/2025 9:15 AM CDT) eGFR >90 >=60 mL/min/1. 73 m2 Comment: Interpretive Data [...] interpretive data was last reviewed 2021. Blood 02/13/2025 9:15 AM CDT 02/13/2025 10:29 AM CDT us Colleen Scott SERVICING REP LAB BLOOD ORDERABLES Final Res ult Performing Organization Address [facility] Co de Phone Number [facility] [place] [address] * Differential, auto (02/13/2025 9:15 AM CDT) Neutrophil abs 2.95 1.50 - 6.50 K/cumm Imm gran abs 0.02 0.00 - 0.10 K/cumm [facility] Lymphocyte abs 0.96 0.80 - 3.30 K/cumm [facility] Monocyte abs 0.32 0.20 - 0.80 K/cumm [facility] Eosinophil abs 0.11 0.00 - 0.50 K/cumm [facility] Basophil abs 0.01 0.00 - 0.10 K/cumm [facility] Neutrophil pct 67.5 % [facility] Comment: Interpretive Data Percent cell count reference ranges are not reported, since discordance with absolute values may lead to misinterpretation of CBC data. Current Interpretive Data was last revised on 2017. Imm gran pct 0.5 % [facility] Comment: Interpretive Data Percent cell count reference ranges are not reported, since discordance with absolute values may lead to misinterpretation of CBC data. Current Interpretive Data was last revised on 2017. Lymphocyte pct 22.0 % [facility] Comment: Interpretive Data Percent cell count reference ranges are not reported, since discordance with absolute values may lead to misinterpretation of CBC data. Current Interpretive Data was last revised on 2017. Monocyte pct 7.3 % [facility] Comment: Interpretive Data Percent cell count reference ranges are not reported, since discordance with absolute values may lead to misinterpretation of CBC data. Current Interpretive Data was last revised on 2017. Eosinophil pct 2.5 % [facility] Comment: Interpretive Data Percent cell count reference ranges are not reported, since discordance with absolute values may lead to misinterpretation of CBC data. Current Interpretive Data was last revised on 2017. Basophil pct 0.2 % [facility] Comment: Interpretive Data Percent cell count reference ranges are not reported, since discordance with absolute values may lead to misinterpretation of CBC data. Current Interpretive Data was last revised on 2017. Blood 02/13/2025 9:15 AM CDT 02/13/2025 10:34 AM CDT us Colleen Scott SERVICING REP LAB BLOOD ORDERABLES Final Res ult [facility] Department [place] [address] * (ABNORMAL) CBC with auto differential (02/13/2025 9:15 AM CDT) [facility] WBC 4.37 3.80 - 9.90 K/cumm Hgb 7.7(L) 11.9 - 15.5 g/dL [facility] Hct 23.0(L) 35.6 - 45.5 % [facility] Plt 137(L) 150 - 400 K/cumm [facility] MPV 10.6 9.1 - 12.3 fL [facility] RBC 2.61(L) 3.90 - 5.20 M/cumm [facility] MCV 88.1 81.3 - 96.4 fL [facility] MCH 29.5 27.1 - 33.3 pg [facility] MCHC 33.5 32.3 - 35.7 g/dL [facility] RDW CV 14.4 11.1 - 14.9 % [facility] RDW SD 46.2 35.7 - 48.1 fL [facility] NRBC abs 0.00 0.00 - 0.01 K/cumm [facility] Blood 02/13/2025 9:15 AM CDT 02/13/2025 10:34 AM CDT us Colleen Scott SERVICING REP LAB BLOOD ORDERABLES Final Res ult [facility] Department [place] [address] * Basic metabolic panel (02/13/2025 9:15 AM CDT) [facility] Sodium 138 135 - 145 mmol/L Potassium, pl 4.0 3.3 - 4.9 mmol/L [facility] Comment:Hemolyzed; Potassium value may be falsely elevated by as much as 0.6-1.0 mmol/L. Suggest redraw and reanalysis. Chloride 101 97 - 110 mmol/L [facility] CO2 28 22 - 32 mmol/L [facility] Anion gap 9 2 - 15 mmol/L [facility] BUN 13 6 - 25 mg/dL [facility] Creatinine 0.71 0.60 - 1.10 mg/dL [facility] Glucose 148 70 - 199 mg/dL [facility] Comment: Interpretive Data Fasting glucose >/= 126 [...] interpretive data was last revised 2022. Calcium 8.5 8.5 - 10.3 mg/dL [facility] Blood 02/13/2025 9:1 5 AM CDT 02/13/2025 10:29 AM CDT us Colleen Scott SERVICING REP LAB BLOOD ORDERABLES Final Res ult [facility] [place] [address] * XR Abdomen 1 View AP (02/13/2025 5:41 AM CDT) Anatomical Region Laterality Modality Body, Abdomen N/A Computed Radiogr aphy 02/13/2025 9:43 AM CDT Impressions 02/13/2025 11:04 AM CDT Mildly dilated loops of small and large bowel likely representing postoperative ileus. Right upper quadrant surgical clips. Natalia drain and suture material overlie the right lower quadrant. Dictated by: Milagros Albarran M.D. The radiology attending physician has personally reviewed this study, and had reviewed and/or edited this written report and agrees with it. Electronically signed by: Nicolas Norton M.D. Narrative 02/13/2025 11:04 AM CDT EXAMINATION: Abdomen, one view. HISTORY: Nausea COMPARISON: None Procedure Note Nicolas Norton MD - 02/13/2025 EXAMINATION: Abdomen, one view. HISTORY: Nausea COMPARISON: None IMPRESSION: Mildly dilated loops of small and large bowel likely representing postoperative ileus. Right upper quadrant surgical clips. Natalia drain and suture material overlie the right lower quadrant. Dictated by: Milagros Albarran M.D. The radiology attending physician has personally reviewed this study, and had reviewed and/or edited this written report and agrees with it. Electronically signed by: Nicolas Norton M.D. Luis Miguel Medina MD IMG XR PROCEDURES Final Resu lt * POCT glucose (02/12/2025 12:04 AM CDT) Glucose, POC 177 70 - 199 mg/dL Blood 02/12/2025 12:0 4 AM CDT 02/12/2025 12:04 AM CDT Luis Miguel Medina MD LAB POCT ORDERABLES - DEVICE Final Result [facility] Department [place] [address] * eGFR (02/11/2025 10:02 PM CDT) eGFR 73 >=60 mL/min/1. 73 m2 Comment: Interpretive Data [...] interpretive data was last reviewed 2021. Blood 02/11/2025 10:0 2 PM CDT 02/11/2025 10:58 PM CDT Luis Miguel Medina MD LAB BLOOD ORDERABLES Final R esult [facility] Department [place] [address] * (ABNORMAL) CBC without differential (02/11/2025 10:02 PM CDT) WBC 4.86 3.80 - 9.90 K/cumm Hgb 7.9(L) 11.9 - 15.5 g/dL [facility] Hct 23.6(L) 35.6 - 45.5 % [facility] Plt 131(L) 150 - 400 K/cumm [facility] MPV 9.7 9.1 - 12.3 fL [facility] RBC 2.69(L) 3.90 - 5.20 M/cumm [facility] MCV 87.7 81.3 - 96.4 fL [facility] MCH 29.4 27.1 - 33.3 pg [facility] MCHC 33.5 32.3 - 35.7 g/dL [facility] RDW CV 14.6 11.1 - 14.9 % [facility] RDW SD 47.3 35.7 - 48.1 fL [facility] NRBC abs 0.00 0.00 - 0.01 K/cumm [facility] Blood 02/11/2025 10:0 2 PM CDT 02/11/2025 10:58 PM CDT Narrative [facility] - 02/11/2025 11:06 PM CDT Obtain POD 1 at 2200. Luis Miguel Medina MD LAB BLOOD ORDERABLES Final R esult Performing Organization Address City/[facility]/ZIP Co de Phone Number [facility] Department [place] [address] * Basic metabolic panel (02/11/2025 10:02 PM CDT) Sodium 140 135 - 145 mmol/L Potassium, pl 3.6 3.3 - 4.9 mmol/L [facility] Chloride 104 97 - 110 mmol/L [facility] CO2 27 22 - 32 mmol/L [facility] Anion gap 9 2 - 15 mmol/L [facility] BUN 9 6 - 25 mg/dL [facility] Creatinine 0.87 0.60 - 1.10 mg/dL [facility] Glucose 119 70 - 199 mg/dL [facility] Comment: Interpretive Data Fasting glucose >/= 126 [...] interpretive data was last revised 2022. Calcium 8.5 8.5 - 10.3 mg/dL [facility] Blood 02/11/2025 10:0 2 PM CDT 02/11/2025 10:58 PM CDT Narrative [facility] - 02/12/2025 12:15 AM CDT Obtain POD 1 at 2200. Luis Miguel Medina MD LAB BLOOD ORDERABLES Final R esult Performing Organization Address City/[facility]/ZIP Co de Phone Number [facility] Department [place] [address] * eGFR (02/10/2025 8:33 PM CDT) eGFR 74 >=60 mL/min/1. 73 m2 Comment: Interpretive Data [...] interpretive data was last reviewed 2021. Blood 02/10/2025 8:33 PM CDT 02/10/2025 9:19 PM CDT Luis Miguel Medina MD LAB BLOOD ORDERABLES Final R esult [facility] Department [place] [address] * (ABNORMAL) CBC without differential (02/10/2025 8:33 PM CDT) WBC 6.36 3.80 - 9.90 K/cumm Hgb 8.7(L) 11.9 - 15.5 g/dL [facility] Hct 25.5(L) 35.6 - 45.5 % [facility] Plt 138(L) 150 - 400 K/cumm [facility] MPV 9.7 9.1 - 12.3 fL [facility] RBC 2.94(L) 3.90 - 5.20 M/cumm [facility] MCV 86.7 81.3 - 96.4 fL [facility] MCH 29.6 27.1 - 33.3 pg [facility] MCHC 34.1 32.3 - 35.7 g/dL [facility] RDW CV 14.6 11.1 - 14.9 % [facility] RDW SD 46.5 35.7 - 48.1 fL [facility] NRBC abs 0.00 0.00 - 0.01 K/cumm [facility] Blood 02/10/2025 8:33 PM CDT 02/10/2025 9:18 PM CDT Narrative [facility] - 02/10/2025 9:25 PM CDT Obtain POD 0 at 2200. us Luis Miguel Medina MD LAB BLOOD ORDERABLES Final R esult [facility] Department [place] [address] * (ABNORMAL) Basic metabolic panel (02/10/2025 8:33 PM CDT) Sodium 134(L) 135 - 145 mmol/L Potassium, pl 4.2 3.3 - 4.9 mmol/L [facility] Chloride 99 97 - 110 mmol/L [facility] CO2 24 22 - 32 mmol/L [facility] Anion gap 11 2 - 15 mmol/L [facility] BUN 14 6 - 25 mg/dL [facility] Creatinine 0.86 0.60 - 1.10 mg/dL [facility] Glucose 172 70 - 199 mg/dL [facility] Comment: Interpretive Data Fasting glucose >/= 126 [...] 2022. Calcium 8.4(L) 8.5 - 10.3 mg/dL [facility] Blood 02/10/2025 8:33 PM CDT 02/10/2025 9:19 PM CDT Narrative [facility] - 02/10/2025 9:48 PM CDT Obtain POD 0 at 2200. Luis Miguel Medina MD LAB BLOOD ORDERABLES Final R esult [facility] Department [place] [address] * Surgical pathology (02/10/2025 11:09 AM CDT) Tissue (Small bowel, resection non- tumor) 02/10/2025 11:09 AM CDT Comment:Fresh as [facility] participant Tissue specimen (specimen) (Colon, Resection, Non-tumor) 02/10/2025 11:20 AM CDT Comment:[facility] research parti cipant Narrative PATHOLOGY [facility] - 02/13/2025 11:17 AM CDT EPIC results best viewed via link to PDF [facility] Chyna Pimentel [facility] [place] [address] Note to Patients: This report may contain a detailed description of human tissue sent by a health care provider to the laboratory for pathologic evaluation. The content of this report is essential for diagnosis and may provide important critical findings. This information may be unfamiliar to patients to review without a medical professional present. It is advised that the patient review this report in the presence of a health care provider who can answer questions and explain the details. SURGICAL PATHOLOGY REPORT FINAL Patient Name: MURIEL WADE Gender: F : 1960 (Age: 64) Address: [address] [place] [id number] Hospital #: [id number] Taken:02/10/2025 Received:02/10/2025 Reported: 02/13/2025 Patient Type: [facility] Inpatient Service: Surgery Location: [facility] 600 Physician(s): Cornell Douglass DO Karishma Dinyar Kodia, MD Diagnosis: A. Small intestine, skin, ileostomy, takedown - Chronic active enteritis, erosion, and pyloric gland metaplasia - Negative for granuloma or dysplasia B. Ileocolic resection: - Features consistent with severe Crohn's disease of ileocolic anastomosis and small bowel - Chronic active enteritis with extensive ulceration and pyloric gland metaplasia - Submucosal fibrosis and transmural inflammation - A few cytomegaloviral inclusions identified on immunostain - Margins histologically viable - Colonic margin with mild acute/active colitis and focal mural fibrosis - Small bowel margin with mild submucosal fibrosis - One benign lymph node - Negative for dysplasia xl/02/13/2025 11:17 By this signature, I attest that the above diagnosis is based upon my personal examination of the slides(and/or other material indicated in the diagnosis). Kym Alfonso MD Report Electronically Reviewed and Signed Out By Kym Alfonso MD 02/13/2025 11:17:59 History: The patient is a 64-year-old woman presenting with an ileostomy in place. Operative procedure: Laparoscopic ileostomy closure, laparoscopic ileocolic redo resection, parastomal hernia repair. Specimen(s) Received: A: Ileostomy B: Ileocolic resection Gross Description: Received in two formalin jars labeled with the patient's identifiers. A. Labeled ileostomy is a donut shaped loop of small bowel (13.2 cm in length by 0.5 cm in diameter) with a single stapled line and an open end with bulging, glistening pink purple mucosa and a rim of putative dull segundo-duarte skin (width of up to 0.4 cm), grossly consistent with a stomal end. There is a transmural defect (3.1 x 1.0 cm, inked orange), located 0.5 cm to the staple line. The segment of bowel is opened to reveal partially flattened glistening segundo-pink mucosa. Labeled A1-stomal end with skin. Jar 2. B. Labeled ileocolic resection is a segment of small bowel (13.2 cm in length by 2.1 cm in diameter) anastomosed to a segment of colon (4.4 by 4.1 x 2.5 cm). There is a proximal ileal stapled resection margin and distal colonic resection margin. The serosa is glistening, pale pink with scattered areas of creeping fat. The segment of ileum is opened to reveal glistening, irregular mucosal folds extending to the proximal margin and discontinuous areas of flattened, segundo-pink mucosa (1.1 to 4.3 cm in greatest dimension; bowel wall thickness of up to 0.6 cm), extending to the anastomotic area, 5.1 cm from the proximal stapled resection margin. There is an irregular well-demarcated, variegated duarte to pink to segundo area of irregular mucosa (2.0 x 1.4 cm) located proximally adjacent to the anastomotic line, 1.6 good cm from the nearest distal colonic resection margin. Serial sections through the irregular mucosa reveals a thickened wall with no focal lesions (0.9 cm in thickness). The colonic mucosa is glistening segundo-pink and partially edematous. The mesenteric fat is palpated for lymph nodes (five lymph nodes ranging in greatest dimension from 0.3-0.5 cm). Labeled B1-proximal ileal margin, shaved;B2-distal colonic margin, sales solutions representative shaved;B3-flattened ileal mucosa in relationship to proximal mucosal folds;B4-flattened mucosa in relationship to creeping fat;Z8-L6-qffyhkvxijzkyi sections of irregular mucosal area (B5-in relationship to anastomosis); B7-flattened ileal mucosa in relationship to anastomotic line; B8-five lymph nodes, submitted entirely. Jar 3. 02/11/2025 12:07 PA(s): Brooke Singer MS, PA ([facility])CM By this signature, I attest that the above diagnosis is based upon my personal examination of the slides(and/or other material). Addenda/Procedures The performance characteristics of some immunohistochemical stains, fluorescence in-situ hybridization tests and immunophenotyping by flow cytometry cited in this report (if any) were determined by the Surgical Pathology and Flow Cytometry Departments at [facility] as part of an ongoing quality rep program and in compliance with federally mandated regulations drawn from the Clinical Laboratory Improvement Act of 1988 (CLIA '88). Some of these tests rely on the use of analyte specific reagents and are subject to specific labeling requirements by the US Food and Drug Administration. Such diagnostic tests may only be performed in a facility that is certified by the Department of Health and Human Services as a high complexity laboratory under CLIA '88. The FDA has determined that such clearance or approval is not necessary. This test is used for clinical purposes. It should not be regarded as investigational or for research. Nevertheless, federal rules concerning the medical use of analyte specific reagents require that the following disclaimer be attached to the report: This test was developed and its performance characteristics determined by the Surgical Pathology and Flow Cytometry Departments of [facility]. It has not been cleared or approved by the U. S. Food and Drug Administration. IMAGES AND SCANNED DOCUMENTS, IF INCLUDED, ONLY VIEWABLE IN PDF VERSION OF REPORT us Luis Miguel Medina MD LAB PATHOLOGY ORDERABLES Fin al Result PATHOLOGY [facility] 3rd Floor [place], [place] [phone] * NE AN ELECTIVE ENDOTRACHEAL AIRWAY, NE AN PROCEDURE PLACEHOLDER (02/10/2025 10:13 AM CDT) Narrative Rebekah Lane CRNA - 02/10/2025 10:[address] CRNA 02/10/2025 10:16 AM Airway Patient location: OR Urgency: elective Indications for airway management: anesthesia and airway protection Difficult airway: no Staff: Supervising provider: Emmie Villalobos DO Placed by: ENGLISH DRAWER: Rebekah Lane CRNA Emergent airway documentation: Risks and benefits discussed: yes Consent obtained: yes Consent given by: patient Airway prep: Preoxygenated: yes Patient position: sniffing Mask difficulty assessment: 1 - vent by mask Spontaneous ventilation during airway: absent Sedation level during airway: GA Final airway details: Final airway type: endotracheal airway Tube type: ETT ETT size: 6.0 mm Cuffed: yes Technique used for successful ETT placement: video laryngoscopy Devices/Methods used in placement: intubating stylet Insertion site: oral Blade type: Gina Video blade type: Badillo Blade size: 3 Cormack-Lehane (direct): grade I - full view of glottis Cuff volume: 7 mL Cuff inflated with: air ETT to teeth: 20 cm Placement verified by: auscultation and CO2 detection Airway secured with: silk tape Number of attempts: 2 Ventilation between attempts: BVM Additional comments: Initial attempt with 7.0 ETT. Unable to pass. 6.0 ETT easily passed. Ventilated between attempts. Atraumatic intubation. us Emmie Jose Kuhlenbeck DO ANESTHESIA ORDERABLES Final Result * (ABNORMAL) POC Blood Gas and Chemistries, Venous - (02/10/2025 8:36 AM CDT) pH, Macario POC 7.40 7.32 - 7.43 pCO2, macario POC 38(L) 40 - 50 mmHg [facility] pO2, macario POC 39 mmHg [facility] Na, POC 136 135 - 145 mmol/L [facility] K POC 3.8 3.3 - 4.9 mmol/L [facility] Comment: Interpretive Data Not all point of care methods assess for hemolysis. Confirm with instrument and retest K+ if not consistent with clinical signs and symptoms. Current Interpretive Data was last revised on 2023. Cl, POC 104 97 - 110 mmol/L [facility] Ionized Ca, POC 4.64 4.50 - 5.10 mg/dL [facility] Glucose, POC 106 70 - 199 mg/dL [facility] Lactate POC 0.8 0.7 - 2.0 mmol/L [facility] O2 Sat, Macario POC (Beau) 65 % [facility] Base excess, POC -1.1 mmol/L [facility] HCO3, Macario POC 24 20 - 30 mmol/L [facility] Hct, POC 29.0(L) 36.3 - 45.3 % [facility] Total Hb, POC 9.7(L) 11.9 - 15.5 g/dL [facility] Blood 02/10/2025 8:36 AM CDT 02/10/2025 8:36 AM CDT Luis Miguel Medina MD LAB POCT ORDERABLES - DEVICE Final Result [facility] [place] [address] * Glucose, random (Outreach) (02/09/2025 1:00 PM CDT) Glucose 105 70 - 199 mg/dL Comment: Interpretive Data [...] interpretive data was last revised 2022. Blood 02/09/2025 1:00 PM CDT 02/09/2025 3:49 PM CDT us Notinfile Unknown LAB BLOOD ORDERABLES Final Res ult Performing Organization Address [facility] Co de Phone Number [facility] [address] [facility] Department [place] [address] * eGFR (02/09/2025 1:00 PM CDT) eGFR 71 >=60 mL/min/1. 73 m2 Comment: [...] interpretive data was last reviewed 2021. Blood 02/09/2025 1:00 PM CDT 02/09/2025 3:49 PM CDT us Notinfile Unknown LAB BLOOD ORDERABLES Final Res ult Performing Organization Address City/[facility]/ZIP Co de Phone Number [facility] [address] [facility] Department [place] [address] * Differential, auto (02/09/2025 1:00 PM CDT) Neutrophil abs 2.30 1.50 - 6.50 K/cumm Imm gran abs 0.02 0.00 - 0.10 K/cumm [facility] Lymphocyte abs 2.08 0.80 - 3.30 K/cumm [facility] Monocyte abs 0.42 0.20 - 0.80 K/cumm [facility] Eosinophil abs 0.05 0.00 - 0.50 K/cumm [facility] Basophil abs 0.02 0.00 - 0.10 K/cumm [facility] Neutrophil pct 47.1 % [facility] Comment: Interpretive Data Percent cell count reference ranges are not reported, since discordance with absolute values may lead to misinterpretation of CBC data. Current Interpretive Data was last revised on 2017. Imm gran pct 0.4 % [facility] Comment: Interpretive Data Percent cell count reference ranges are not reported, since discordance with absolute values may lead to misinterpretation of CBC data. Current Interpretive Data was last revised on 2017. Lymphocyte pct 42.5 % [facility] Comment: Interpretive Data Percent cell count reference ranges are not reported, since discordance with absolute values may lead to misinterpretation of CBC data. Current Interpretive Data was last revised on 2017. Monocyte pct 8.6 % [facility] Comment: Interpretive Data Percent cell count reference ranges are not reported, since discordance with absolute values may lead to misinterpretation of CBC data. Current Interpretive Data was last revised on 2017. Eosinophil pct 1.0 % [facility] Comment: Interpretive Data Percent cell count reference ranges are not reported, since discordance with absolute values may lead to misinterpretation of CBC data. Current Interpretive Data was last revised on 2017. Basophil pct 0.4 % [facility] Comment: Interpretive Data Percent cell count reference ranges are not reported, since discordance with absolute values may lead to misinterpretation of CBC data. Current Interpretive Data was last revised on 2017. Blood 02/09/2025 1:00 PM CDT 02/09/2025 3:49 PM CDT us Notinfile Unknown LAB BLOOD ORDERABLES Final Res ult Performing Organization Address [facility] Co de Phone Number MANDY [address] [address] * (ABNORMAL) Comprehensive metabolic panel, without glucose (Outreach) (02/09/2025 1:00 PM CDT) [facility] Sodium 134(L) 135 - 145 mmol/L Potassium, pl 4.2 3.3 - 4.9 mmol/L [facility] Chloride 97 97 - 110 mmol/L [facility] CO2 24 22 - 32 mmol/L [facility] Anion gap 13 2 - 15 mmol/L [facility] BUN 24 6 - 25 mg/dL [facility] Creatinine 0.89 0.60 - 1.10 mg/dL [facility] Calcium 9.1 8.5 - 10.3 mg/dL [facility] Protein, pl 7.3 6.5 - 8.5 g/dL [facility] Albumin 4.2 3.5 - 5.0 g/dL [facility] Bilirubin, total 0.4 0.1 - 1.2 mg/dL [facility] Alk phos 103 40 - 130 Units/L [facility] AST 29 10 - 45 Units/L [facility] ALT 21 7 - 45 Units/L [facility] Blood 02/09/2025 1:00 PM CDT 02/09/2025 3:49 PM CDT us Notinfile Unknown LAB BLOOD ORDERABLES Final Res ult Performing Organization Address [facility]/ZIP Co de Phone Number MANDY [address] [employer] [place], [place] [id number] * (ABNORMAL) CBC with auto differential (02/09/2025 1:00 PM CDT) [facility] WBC 4.89 3.80 - 9.90 K/cumm Hgb 8.8(L) 11.9 - 15.5 g/dL [facility] Hct 27.3(L) 35.6 - 45.5 % [facility] Plt 180 150 - 400 K/cumm [facility] MPV 9.6 9.1 - 12.3 fL [facility] RBC 3.03(L) 3.90 - 5.20 M/cumm [facility] MCV 90.1 81.3 - 96.4 fL [facility] MCH 29.0 27.1 - 33.3 pg [facility] MCHC 32.2(L) 32.3 - 35.7 g/dL [facility] RDW CV 14.6 11.1 - 14.9 % [facility] RDW SD 47.8 35.7 - 48.1 fL [facility] NRBC abs 0.00 0.00 - 0.01 K/cumm [facility] Blood 02/09/2025 1:00 PM CDT 02/09/2025 3:49 PM CDT us Notinfile Unknown LAB BLOOD ORDERABLES Final Res ult Performing Organization Address [facility] de Phone Number [address] [place] [address] * Phosphorus (02/09/2025 1:00 PM CDT) Phosphorus, pl 3.7 2.3 - 4.5 mg/dL Blood 02/09/2025 1:00 PM CDT 02/09/2025 3:49 PM CDT us Notinfile Unknown LAB BLOOD ORDERABLES Final Res ult Performing Organization Address [facility] de Phone Number [address] [place] [address] * Magnesium (02/09/2025 1:00 PM CDT) Magnesium 2.4 1.4 - 2.5 mg/dL Blood 02/09/2025 1:00 PM CDT 02/09/2025 3:49 PM CDT us Notinfile Unknown LAB BLOOD ORDERABLES Final Res ult Performing Organization Address [facility]/ZIP Co de Phone Number MANDY MH [address] [facility] Department [place] [address] * SCAN - LABS (02/09/2025 12:00 AM CDT) us Provider Scanning Edited Result - Final * eGFR (02/02/2025 2:14 PM CDT) eGFR 67 >=60 mL/min/1. 73 m2 Comment: Interpretive Data [...] interpretive data was last reviewed 2021. Blood 02/02/2025 2:14 PM CDT 02/02/2025 3:24 PM CDT us Notinfile Unknown LAB BLOOD ORDERABLES Final Res ult MANDY [address] [facility] Department [place] [address] * Phosphorus (02/02/2025 2:14 PM CDT) Phosphorus, pl 4.4 2.3 - 4.5 mg/dL Blood 02/02/2025 2:14 PM CDT 02/02/2025 3:24 PM CDT us Notinfile Unknown LAB BLOOD ORDERABLES Final Res ult Performing Organization Address City/[facility]/ZIP Co de Phone Number [address] [address] * Magnesium (02/02/2025 2:14 PM CDT) [facility] Magnesium 2.0 1.4 - 2.5 mg/dL Blood 02/02/2025 2:14 PM CDT 02/02/2025 3:24 PM CDT Notinfile Unknown LAB BLOOD ORDERABLES Final Res t Performing Organization Address [facility] de Phone Number MANDY [address] [address] * (ABNORMAL) Comprehensive metabolic panel (02/02/2025 2:14 PM CDT) [facility] Sodium 134(L) 135 - 145 mmol/L Potassium, pl 3.9 3.3 - 4.9 mmol/L [facility] Chloride 101 97 - 110 mmol/L [facility] CO2 20(L) 22 - 32 mmol/L [facility] Anion gap 13 2 - 15 mmol/L [facility] BUN 18 6 - 25 mg/dL [facility] Creatinine 0.94 0.60 - 1.10 mg/dL [facility] Glucose 109 70 - 199 mg/dL [facility] Comment: Interpretive Data Fasting glucose >/= [...] 2022. Calcium 9.1 8.5 - 10.3 mg/dL [facility] Bilirubin, total 0.4 0.1 - 1.2 mg/dL [facility] Protein, pl 7.6 6.5 - 8.5 g/dL [facility] Albumin 4.4 3.5 - 5.0 g/dL [facility] Alk phos 105 40 - 130 Units/L [facility] ALT 22 7 - 45 Units/L [facility] AST 33 10 - 45 Units/L [facility] Blood 02/02/2025 2:14 PM CDT 02/02/2025 3:24 PM CDT us Notinfile Unknown LAB BLOOD ORDERABLES Final Res ult [facility] [address] [facility] Department [place] [address] * Differential, auto (02/02/2025 1:30 PM CDT) Neutrophil abs 2.61 1.50 - 6.50 K/cumm Imm gran abs 0.02 0.00 - 0.10 K/cumm [facility] Lymphocyte abs 2.00 0.80 - 3.30 K/cumm [facility] Monocyte abs 0.41 0.20 - 0.80 K/cumm [facility] Eosinophil abs 0.08 0.00 - 0.50 K/cumm [facility] Basophil abs 0.02 0.00 - 0.10 K/cumm [facility] Neutrophil pct 50.7 % [facility] Comment: Interpretive Data Percent cell count reference ranges are not reported, since discordance with absolute values may lead to misinterpretation of CBC data. Current Interpretive Data was last revised on 2017. Imm gran pct 0.4 % [facility] Comment: Interpretive Data Percent cell count reference ranges are not reported, since discordance with absolute values may lead to misinterpretation of CBC data. Current Interpretive Data was last revised on 2017. Lymphocyte pct 38.9 % [facility] Comment: Interpretive Data Percent cell count reference ranges are not reported, since discordance with absolute values may lead to misinterpretation of CBC data. Current Interpretive Data was last revised on 2017. Monocyte pct 8.0 % [facility] Comment: Interpretive Data Percent cell count reference ranges are not reported, since discordance with absolute values may lead to misinterpretation of CBC data. Current Interpretive Data was last revised on 2017. Eosinophil pct 1.6 % [facility] Comment: Interpretive Data Percent cell count reference ranges are not reported, since discordance with absolute values may lead to misinterpretation of CBC data. Current Interpretive Data was last revised on 2017. Basophil pct 0.4 % [facility] Comment: Interpretive Data Percent cell count reference ranges are not reported, since discordance with absolute values may lead to misinterpretation of CBC data. Current Interpretive Data was last revised on 2017. Blood 02/02/2025 1:30 PM CDT 02/02/2025 3:18 PM CDT us Notinfile Unknown LAB BLOOD ORDERABLES Final Res ult [place] [id number] [facility] Department [place] [address] * (ABNORMAL) CBC with auto differential (02/02/2025 1:30 PM CDT) WBC 5.14 3.80 - 9.90 K/cumm Hgb 9.1(L) 11.9 - 15.5 g/dL [facility] Hct 27.4(L) 35.6 - 45.5 % [facility] Plt 183 150 - 400 K/cumm [facility] MPV 9.4 9.1 - 12.3 fL [facility] RBC 3.09(L) 3.90 - 5.20 M/cumm [facility] MCV 88.7 81.3 - 96.4 fL [facility] MCH 29.4 27.1 - 33.3 pg [facility] MCHC 33.2 32.3 - 35.7 g/dL [facility] RDW CV 14.3 11.1 - 14.9 % [facility] RDW SD 45.4 35.7 - 48.1 fL [facility] NRBC abs 0.00 0.00 - 0.01 K/cumm [facility] Blood 02/02/2025 1:30 PM CDT 02/02/2025 3:18 PM CDT us Notinfile Unknown LAB BLOOD ORDERABLES Final Res ult MANDY [address] [facility] Department [place] [address] * Prepare RBC: 2 Units (01/29/2025 3:19 PM CDT) Product code [id number] [facility] Unit Number [id number] 1-W [facility] Product Blood Type BPOS [facility] Dispense Status RETURNED [facility] Product code [id number] Unit Number [id number] 9-0 [facility] Product Blood Type BPOS [facility] Dispense Status RETURNED [facility] Blood 01/29/2025 3:19 PM CDT 01/29/2025 3:18 PM CDT Narrative [facility] - 02/13/2025 12:37 AM CDT Specify Procedure:->ileostomy takedown and hernia repair Are special requirements needed? (All products are leukoreduced and CMV- safe)- >No Date required:-[id number] LRRBC # of [id number] Reasons:-Hold for procedure (specify procedure)} us Rocio Ellis SERVICING REP BLOOD BANK PRODUCT ORDER BACILIO Final Result Performing Organization Address City/[facility]/ZIP Co de Phone Number MANDY [facility] Department [place] [address] * TYPE AND SCREEN 14 DAY (01/29/2025 3:12 PM CDT) Gregory, indirect Negative Comment:Patient has previous antibody history ABO Rh B Positive [facility] Blood 01/29/2025 3:12 PM CDT 01/29/2025 4:05 PM CDT Narrative [facility] - 01/29/2025 5:03 PM CDT Is this test being ordered in advance for a procedure?->Yes Expected date of procedure:->02/10/25 Has the patient been transfused in the past 3 months?->No Has the patient been in the past 3 months?->No us Rocio Ellis SERVICING REP LAB BLOOD BANK TEST ORDE RABSAUL Final Result MANDY [facility] Department [place] [address] * (ABNORMAL) Cytomegalovirus (CMV) DNA PCR, quantitative Blood (01/26/2025 10:30 AM CDT) Pathologist [facility] CMV DNA Detected( A) [facility] Comment: Interpretive Data: The quantifiable range of this assay is 34 IUnits/mL to 10,000,000 IUnits/mL (1.53 log IUnits/mL to 7.0 log IUnits/mL). Testing was performed by the [employer] CMV Test ([employer] Testing performed at [facility]. Current interpretive data was last revised on 2021. Testing performed by: [facility], [address] [place]., [address] CMV DNA IU/mL <34 IUnits/mL MANDY Comment:Testing performed by : [facility], [address] [place]., [address] CMV DNA log IU/mL <1.53 log IUnits/mL MANDY Comment:Testing performed by : [facility], [address] [place] [address]., [id number] Blood 01/26/2025 10:3 0 AM CDT 01/26/2025 3:54 PM CDT us Notinfile Unknown LAB MICROBIOLOGY - GENERAL ORD ERABLES Final Result MANDY [address] [facility] Department [place] [address] [facility] * Glucose, random (Outreach) (01/26/2025 10:30 AM CDT) Pathologist [facility] Glucose 137 70 - 199 mg/dL Comment: Interpretive Data [...] interpretive data was last revised 2022. Blood 01/26/2025 10:3 0 AM CDT 01/26/2025 12:32 PM CDT us Notinfile Unknown LAB BLOOD ORDERABLES Final Res ult MANDY [address] [facility] Department [place] [address] * (ABNORMAL) eGFR (01/26/2025 10:30 AM CDT) eGFR 56(L) >=60 mL/min/1. 73 m2 Comment: Interpretive Data [...] interpretive data was last reviewed 2021. Blood 01/26/2025 10:3 0 AM CDT 01/26/2025 12:32 PM CDT us Notinfile Unknown LAB BLOOD ORDERABLES Final Res ult Performing Organization Address [facility] Co de Phone Number MANDY [address] [place] [address] * (ABNORMAL) Comprehensive metabolic panel, without glucose (Outreach) (01/26/2025 10:30 AM CDT) Pathologist [facility] Sodium 133(L) 135 - 145 mmol/L Potassium, pl 3.5 3.3 - 4.9 mmol/L [facility] Chloride 100 97 - 110 mmol/L [facility] CO2 19(L) 22 - 32 mmol/L [facility] Anion gap 14 2 - 15 mmol/L [facility] BUN 14 6 - 25 mg/dL [facility] Creatinine 1.09 0.60 - 1.10 mg/dL [facility] Calcium 9.3 8.5 - 10.3 mg/dL [facility] Protein, pl 7.9 6.5 - 8.5 g/dL [facility] Albumin 4.4 3.5 - 5.0 g/dL [facility] Bilirubin, total 0.7 0.1 - 1.2 mg/dL [facility] Alk phos 107 40 - 130 Units/L [facility] AST 36 10 - 45 Units/L [facility] ALT 24 7 - 45 Units/L [facility] Blood 01/26/2025 10:3 0 AM CDT 01/26/2025 12:32 PM CDT us Notinfile Unknown LAB BLOOD ORDERABLES Final Res ult Performing Organization Address City/[facility]/ZIP Co de Phone Number MANDY [address] [place] [address] * (ABNORMAL) Phosphorus (01/26/2025 10:30 AM CDT) Pathologist [facility] Phosphorus, pl 4.7(H) 2.3 - 4.5 mg/dL Blood 01/26/2025 10:3 0 AM CDT 01/26/2025 12:32 PM CDT us Notinfile Unknown LAB BLOOD ORDERABLES Final Res ult MANDY [address] [address] * Magnesium (01/26/2025 10:30 AM CDT) Magnesium 1.8 1.4 - 2.5 mg/dL Blood 01/26/2025 10:3 0 AM CDT 01/26/2025 12:32 PM CDT us Notinfile Unknown LAB BLOOD ORDERABLES Final Res ult Performing Organization Address [facility] de Phone Number MANDY [address] [address] * (ABNORMAL) eGFR (01/19/2025 1:15 PM CDT) eGFR 32(L) >=60 mL/min/1. 73 m2 Comment: Interpretive Data [...] interpretive data was last reviewed 2021. Blood 01/19/2025 1:15 PM CDT 01/19/2025 2:11 PM CDT us Notinfile Unknown LAB BLOOD ORDERABLES Final Res ult Performing Organization Address [facility] Co de Phone Number СЕРГЕЙ[address] [address] * (ABNORMAL) Phosphorus (01/19/2025 1:15 PM CDT) [facility] Phosphorus, pl 4.7(H) 2.3 - 4.5 mg/dL Blood 01/19/2025 1:15 PM CDT 01/19/2025 2:11 PM CDT us Notinfile Unknown LAB BLOOD ORDERABLES Final Res ult Performing Organization Address [facility] Co de Phone Number СЕРГЕЙ[address] [address] * Magnesium (01/19/2025 1:15 PM CDT) [facility] Magnesium 2.1 1.4 - 2.5 mg/dL Blood 01/19/2025 1:15 PM CDT 01/19/2025 2:11 PM CDT Notinfile Unknown LAB BLOOD ORDERABLES Final [facility] ult Performing Organization Address [facility] de Phone Number СЕ[address]ГЕ[address] [address] * (ABNORMAL) Comprehensive metabolic panel (01/19/2025 1:15 PM CDT) [facility] Sodium 126(L) 135 - 145 mmol/L Potassium, pl 3.8 3.3 - 4.9 mmol/L [facility] Chloride 96(L) 97 - 110 mmol/L [facility] CO2 17(L) 22 - 32 mmol/L [facility] Anion gap 13 2 - 15 mmol/L [facility] BUN 28(H) 6 - 25 mg/dL [facility] Creatinine 1.75(H) 0.60 - 1.10 mg/dL [facility] Glucose 105 70 - 199 mg/dL [facility] Comment: Interpretive Data Fasting glucose >/= [...] 2022. Calcium 8.6 8.5 - 10.3 mg/dL [facility] Bilirubin, total 0.4 0.1 - 1.2 mg/dL [facility] Protein, pl 7.2 6.5 - 8.5 g/dL [facility] Albumin 4.0 3.5 - 5.0 g/dL [facility] Alk phos 87 40 - 130 Units/L [facility] ALT 18 7 - 45 Units/L [facility] AST 27 10 - 45 Units/L [facility] Blood 01/19/2025 1:15 PM CDT 01/19/2025 2:11 PM CDT Notinfile Unknown LAB BLOOD ORDERABLES Final Res ult MANDY [address] [facility] Department [place] [address] * SCAN - LABS (01/14/2025 12:00 AM CDT) us Provider Scanning Final Result * Colonoscopy (12/04/2024 12:25 PM CDT) Anatomical Region Laterality Modality Other Narrative Procedure Note Beata Ambrosio MD - 12/04/2024 12:25 PM CDT [facility] Patient Name: Muriel Wade Procedure Date: 12/04/2024 12:25 PM Date of : 1960 Admit Type: Outpatient Age: 64 Gender: Female Attending MD: Beata Ambrosio M.D. Room: [facility] ENDOSCOPY ROOM 3 Note Status: Finalized Procedure: Colonoscopy Indications: Disease activity assessment of Crohn's disease ofthe small bowel Referring MD: Sosa Flowers D.O., Luis Miguel Medina M.D., Kingsley Baez M.D. Providers: Beata Ambrosio M.D., Darin Ye M.D. Medicines: Monitored Anesthesia Care Complications: No immediate complications. Estimated blood loss: Minimal. Estimated Blood Loss: Estimated blood loss was minimal. Procedure: Pre-Anesthesia Assessment: - Using IV propofol under the supervision of an anesthesiologist was determined to be medically necessary for this procedure based on review of the patient's medical history, medications, and prior anesthesia history. - Immediately prior to administration ofmedications, the patient was re-assessed for adequacy to receive sedatives. - The risks and benefits of the procedure and the sedation options and risks were discussed with the patient. All questions were answered and informed consent was obtained. The benefits, risks and alternatives of theprocedure and sedation were discussed and informed consentwas obtained. All questions were answered. Please referto the signed informed consent document in the medical record. The [facility] [id number] endoscope was introduced through the anus and advanced to the the ileocolonic anastomosis. The colonoscopy wasperformed without difficulty. The patient tolerated the procedure well. The quality of the bowelpreparation was good. The bowel preparation used was Miralaxvia single dose instruction. Findings: The perianal and digital rectal examinations were normal. The Simple Endoscopic Score for Crohn's Disease was determined basedon the endoscopic appearance of the mucosa in the following segments: - Ileum: Findings include narrowing(s) that cannot be passed. Segment score: 3. - Right Colon: Findings include no ulcers present, no ulcerated surfaces, no affected surfaces and no narrowings. Segment score: 0. - Transverse Colon: Findings include no ulcers present, no ulcerated surfaces, no affected surfaces and no narrowings. Segment score: 0. - Left Colon: Findings include no ulcers present, no ulceratedsurfaces, no affected surfaces and no narrowings. Segment score: 0. Segmentscore: 0. - Total SES-CD aggregate score: 3. Biopsies were taken with a cold forceps for histology. An area of mildly congested mucosa was found in the entire colon.This maybe secondary to diversion colitis. Impression: - Simple Endoscopic Score for Crohn's Disease: 3, mucosal inflammatory changes. Biopsied. - Congested mucosa in the entire examined colon. Recommendation: - Await pathology results. - Continue present medications. Attending Participation: I was present and participated during the entire procedure, including non-pham portions. Electronically signed by Beata Ambrosio MD Beata Ambrosio M.D. 12/04/2024 1:06:27 PM . Number of Addenda: 0 Note Initiated On: 12/04/2024 12:25 PM us Beata Ambrosio MD ENDOSCOPY PROCEDURES Final Re sult * Dexa TBS Axial Skeleton Bone Density 1 or more sites (10/17/2024 3:18 PM CDT) Anatomical Region Laterality Modality Wrist, Body N/A Radiographic Tricia ging Narrative 10/17/2024 4:46 PM CDT Patient Name: Muriel Wade Date of : 1960 Date of scan: 10/17/2024 Bone mineral density was performed on a [employer] Densitometer. Based on machine cross-calibration and precision studies the least significant changes of this densitometer is 0.024 g/cm2 at the spine, 0.020 g/cm2 at the total proximal femur, and 0.014g/cm2 at the forearm. HISTORY: This is a 64 y.o. postmenopausal female with a history of Crohn's disease, low bone mass, thyroid disease, ulcerative colitis, and vitamin D deficiency. She reports that she quit smoking about 31 years ago. Her smoking use included cigarettes. She started smoking about 46 years ago. She has a 7.5 pack-year smoking history. She has been exposed to tobacco smoke. She has never used smokeless tobacco. Currently on treatment with calcium, vitamin D, and thyroid hormone, previously treated with abaloparatide (Tymlos), anticoagulants, and diuretics, and current complaint of back pain and leg pain. INDICATIONS: Menopause status, vitamin D deficiency, and history of low bone mass. FINDINGS: BONE MINERAL DENSITY OF THE LUMBAR SPINE Bone Mineral Density (BMD) of the lumbar spine was measured from L1-L4 and the average density was calculated to be 0.760 gm/cm2. This corresponds to a T-score (standard deviations from the mean of young adults) of -2.6. There is no previous study available for comparison. BONE MINERAL DENSITY OF THE PROXIMAL FEMUR Bone Mineral Density (BMD) of the left hip total was found to be 0.607 gm/cm2. This corresponds to a T-score standard deviations from the mean of young adults of -2.7. Femoral neck is 0.528 gm/cm2 with a T-score (standard deviations from the mean of young adults) of -2.9. There is no previous study available for comparison. SUMMARY: Bone mineral density shows evidence of osteoporosis and marked increase risk of fracture. The lumbar spine Trabecular Bone Score is 1.197 which suggests degraded bone microarchitecture compared to the general population. Final decisions regarding diagnostic or therapeutic recommendations should include BMD, TBS, additional clinical risk factors as well the clinical context of the patient. Please see attached TBS results for further details. ADDITIONAL COMMENTS: Postmenopausal Women and Men Over 50: Diagnostic criteria: Osteoporosis: BMD at or below -2.5 T-score; Osteopenia (low bone mass): BMD between -1.0 and -2.5 T-score. If the patient has a history of a fragility fracture, a fracture that occurred with trauma equivalent to a fall from a standing position or less, then the diagnosis is osteoporosis regardless of bone density. The history and data sections of the bone mineral density scan were prepared by Sonali Wallace(Fadia)(Chrissy)(BD) CBDT who is accredited by the International Society of Clinical Densitometry. The overall patient assessment and scan interpretation were performed by Flakita Gould M.D. who is certified by the International Society of Clinical Densitometry. [id number] Cam Jara MD IMG DXA PROCEDURES Candi l Result * Hepatitis C antibody (02/23/2023 11:47 AM CDT) Hep C Ab Nonreactive Nonreactive [facility] Comment:Antibodies to HCV no t detected. Does NOT exclude the possibility of recent exposure to HCV. Current interpretive data was last revised on 22 Blood 02/23/2023 11:4 7 AM CDT 02/23/2023 2:19 PM CDT Star Griffiths MD LAB MICROBIOLOGY - GENER AL ORDERABLES Final Result Performing Organization Address City/State/[facility] Co de Phone Number [facility] Department [place] [address] from Last 3 Months or Most Recently Relevant to Health Maintenance Insurance MEDICARE [facility] MEDICARE [facility] , [place] [id number] [place] [address] [place] [address] Advance Directives For more information, please contact: [phone] * Full Code (Latest Code Status on File) Date Activated Date Inactivated Comments 02/10/2025 3:31 PM 02/18/2025 6:46 PM * Full Code Date Activated Date Inactivated Comments 01/12/2025 12:40 PM 01/13/2025 4:40 AM * Full Code Date Activated Date Inactivated Comments 09/19/2024 9:21 AM 09/19/2024 3:24 PM * Full Code Date Activated Date Inactivated Comments 04/22/2024 12:41 PM 04/22/2024 6:49 PM * Full Code Date Activated Date Inactivated Comments 09/27/2023 2:49 AM 09/29/2023 6:15 PM Care Teams Business Support Professional Relationship Specialty Start Date End Date Sosa Flowers DO PCP - General Family Medicine 01/12/20 Gris Mccain MD [address] [facility] GASTROENTEROLOGY, [facility] [address] [address] PCP - Home Infusion Attending Gastroenterology 12/12/24 Luis Miguel Medina MD [address] [facility] [phone] [place] [address] Surgeon Colon and Rectal Surgery 02/21/23 Beata Ambrosio MD [address] [place] [address] Referring Physician Gastroenterology 02/26/23 Star Griffiths MD 1 [facility] [place] [address] Consulting Physician Gastroenterology 02/27/23 Kingsley Ovalles MD 1 [facility] [place] [address] Consulting Physician Gastroenterology 02/27/23 Lizeth Salazar MD 1 [facility] [place] [address] Consulting Physician Infectious Diseases 07/12/23 Kenroy Hicks, jen Home Infusion Pharmacist Pharmacy 12/02/24 Evette Mccloud, RN Home Infusion Nursing 12/05/24
--- OUTSIDE RECORDS SUMMARY | 2025-04-16 16:08 | XMS_ITS | Encounter Summary ---
Author Organization [facility] Healthcare Address [address] [place] [address] Care Team Providers Care Monument Letterer Name Role Phone Sosa Flowers DO Primary Care Provider [phone] Luis Miguel Medina MD Unavailable [phone] Beata Ambrosio MD Unavailable [phone] Star Griffiths MD Unavailable [phone] Kingsley Ovalles MD Unavailable [phone] Lizeth Salazar MD Unavailable [phone] Kenroy Hicks [facility] Unavailable Unavailable Evette Mccloud RN Unavailable Livier Gris Odell MD Unavailable [phone] Encounter Details Date Type Department Care Team (Late st Contact Info) Description 04/16/2025 Home Infusion [facility] Home Infusion Therapy [address] [place] [address] Clyde Mendoza, Nicole Social History Tobacco Use Types Packs/Day Years [...] or isolation Patient unable to respond 11/06/2024 [facility] Utilities Answer Date Recorded In the past 12 months has th e [employer], gas, oil, or water [employer] threatened to shut off services in your [...] often do you attend chur ch or yazidism services? Never 10/02/2023 Do you belong to any clubs o r organizations such as muslim groups, unions, fraternal or athletic groups, or [...] place to sleep or slept in a long term (including now)? No 10/02/2023 Personal Safety Answer Date Recorded Have you ever been in or are you currently in a harmful physical or emotional relationship or is someone making you feel afraid or unsafe? 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 Gender Identity Female 04/17/2021 10:27 AM CDT Sexual Orientation Straight 04/17/2021 10 :27 AM CDT documented as of this encounter Plan of Treatment Not on file documented as of this encounter Visit Diagnoses Not on filedocumented in this encounter Care Teams Monument Letterer Relationship Specialty Start Date End Date KendrickSosa castillo DO PCP - General Family Medicine 01/12/20 Gris Mccain MD [address] [facility] GASTR[facility]ENTEROLOGY, [facility] [address] [place] [address] PCP - Home Infusion Attending Gastroenterology 12/12/24 Luis Miguel Medina MD [address] [facility] [phone] [place] [address] Surgeon Colon and Rectal Surgery 02/21/23 Beata Ambrosio MD [address] [place] [address] Referring Physician Gastroenterology 02/26/23 Star Griffiths MD 1 [facility] [place] [address] Consulting Physician Gastroenterology 02/27/23 Kingsley Ovalles MD 1 [facility] [place] [address] Consulting Physician Gastroenterology 02/27/23 Lizeth Salazar MD 1 [facility] [place] [address] Consulting Physician Infectious Diseases 07/12/23 Kenroy Hicks, [facility] Home Infusion Pharmacist Pharmacy 12/02/24 Evette Mccloud, RN Home Infusion Nursing 12/05/24 documented as of this encounter
--- OUTSIDE RECORDS SUMMARY | 2025-04-16 16:08 | XMS_ITS | Encounter Summary ---
Author Organization [facility] Address [address] [place] [address] Phone Care Team Providers Care Spareribs Trimmer Name Role Phone Kendrickbarrysissy Sosa Bhatia DO Primary Care Provider [phone] Luis Miguel Medina MD Unavailable [phone] Beata Ambrosio MD Unavailable [phone] Star Griffiths MD Unavailable [phone] Kingsley Ovalles MD Unavailable [phone] Lizeth Salazar MD Unavailable [phone] Kenroy Hicks [facility] Unavailable Unavailable Evette Mccloud RN Unavailable Livier Gris Odell MD Unavailable [phone] Encounter Details Date Type Department Care Team (Late st Contact Info) Description 04/14/2025 Telephone [facility] Medicine Infectious Diseases [address] [place] [address] [place] [address] Susi Tinsley, ELIDA Social History Tobacco Use Types Packs/Day Years [...] or isolation Patient unable to respond 11/06/2024 [facility] Utilities Answer Date Recorded In the past [...] often do you attend chur ch or mandaeism services? Never 10/02/2023 Do you belong to any clubs o r organizations such as zoroastrianism groups, unions, fraternal or athletic groups, or [...] medical appointments or from getting medications? No 03/1 08/2023 In the past 12 months, has l [...] on file Legal Sex Female 12:20 AM POOL COORDINATOR Gender Identity Female 04/17/2021 10:27 AM CDT Sexual Orientation Straight 04/17/2021 10 :27 AM CDT documented as of this encounter Miscellaneous Notes * Telephone Encounter - Susi Tinsley CMA - 04/14/2025 2:15 PM CDT This patient is asking should they get the CMV test done before their appointment? Please contact the patient at [phone]. documented in this encounter Plan of Treatment Not on file documented as of this encounter Visit Diagnoses Not on filedocumented in this encounter Care Teams Spareribs Trimmer Relationship Specialty Start Date End Date Sosa Flowers DO PCP - General Family Medicine 01/12/20 Gris Mccain MD [address] [facility], [facility] [address] [place] [address] PCP - Home Infusion Attending Gastroenterology 12/12/24 Luis Miguel Medina MD [address] [facility] [phone] [place] [address] Surgeon Colon and Rectal Surgery 02/21/23 Beata Ambrosio MD [address] [place] [address] Referring Physician Gastroenterology 02/26/23 Star Griffiths MD 1 [facility] [place] [address] Consulting Physician Gastroenterology 02/27/23 Kingsley Ovalles MD 1 [facility] [place] [address] Consulting Physician Gastroenterology 02/27/23 Lizeth Salazar MD 1 [facility] [place] [address] Consulting Physician Infectious Diseases 07/12/23 Kenroy Hicks, jen Home Infusion Pharmacist Pharmacy 12/02/24 Evette Mccloud, RN Home Infusion Nursing 12/05/24 documented as of this encounter
--- OUTSIDE RECORDS SUMMARY | 2025-04-16 16:08 | XMS_ITS | Encounter Summary ---
Author Organization [facility] Address [address] [place] [address] Phone Care Team Providers Care Rigging Up Worker Name Role Phone Kendrickbarrysissy Sosa Bhatia DO Primary Care Provider [phone] Luis Miguel Medina MD Unavailable [phone] Beata Ambrosio MD Unavailable [phone] Star Griffiths MD Unavailable [phone] Kingsley Ovalles MD Unavailable [phone] Lizeth Salazar MD Unavailable [phone] Kenroy Hicks [facility] Unavailable Unavailable Evtete Mccloud RN Unavailable Livier Gris Odell MD Unavailable [phone] Encounter Details Date Type Department Care Team (Late st Contact Info) Description 04/15/2025 Orders Only [facility] Medicine Infectious Diseases [address] [place] [id number] Sara Shannon Cytomegalovirus (CMV) viremia (HCC) (Primary Dx) Social History Tobacco Use Types Packs/Day Years [...] or isolation Patient unable to respond 11/06/2024 [facility] Utilities Answer Date Recorded In [...] often do you attend chur ch or holiness services? 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 GASTR[facility]OLOGY, [facility] [address] [place] [address] PCP - Home Infusion Attending Gastroenterology 12/12/24 Luis Miguel Medina MD [phone] [place] [address] Surgeon Colon and Rectal Surgery 02/21/23 Beata Ambrosio MD [address] [place] [address] Referring Physician Gastroenterology 02/26/23 Star Griffiths MD 1 [facility] [place] [address] Consulting Physician Gastroenterology 02/27/23 Kingsley Ovalles MD 1 [facility] [place] [address] Consulting Physician Gastroenterology 02/27/23 Lizeth Salazar MD 1 [facility] [place] [address] Consulting Physician Infectious Diseases 07/12/23 Kenroy Hicks, jen Home Infusion Pharmacist Pharmacy 12/02/24 Evette Mccloud, RN Home Infusion Nursing 12/05/24 documented as of this encounter
--- OUTSIDE RECORDS SUMMARY | 2025-04-16 16:08 | XMS_ITS ---
Author Organization [facility] Address [address] [place] [address] Care Team Providers Care Rubber Boots And Shoes Repairer Name Role Phone Sosa Flowers Primary Care Provider [phone] Luis Miguel Medina MD Unavailable [phone] Beata Ambrosio MD Unavailable [phone] Star Griffiths MD Unavailable [phone] Kingsley Ovalles MD Unavailable [phone] Lizeth Salazar MD Unavailable [phone] Kenroy Hicks [facility] Unavailable Unavailable Evette Mccloud RN Unavailable Livier Gris Odell MD Unavailable [phone] Home Infusion Status:Enrolled (Active) Start date:11/28/2024 Enrollment date:11/28/2024 Related service episodes:RxHI TPN - TPN (Start Here) 1500 ml IV 3 Times a Week (Active), Hydration Therapy (Active) Overview Cutover complete Nichole Paris 12/12/2024 3:29 PM Case Team Name Relationship Phone Evette Mccloud RN(Responsible Staff) H ome Infusion Nursing Continued Care and Services Coordination
--- OUTSIDE RECORDS SUMMARY | 2025-04-16 16:08 | XMS_ITS | Encounter Summary ---
Author Organization [facility] Healthcare Address [address] [place] [address] Care Team Providers Care Shower Screen Installer Name Role Phone Sosa Flowers Jannette MCALLISTER Primary Care Provider [phone]- [phone] Luis Miguel Medina MD Unavailable [phone] Beata Ambrosio MD Unavailable [phone] Star Griffiths MD Unavailable [phone] Kingsley Ovalles MD Unavailable Nory Jacques LCSW Unavailable Andreia Kidd Unavailable Unavailable Lizeth Salazar MD Unavailable Sangeeta Cruz RN Unavailable [phone] Kenroy Hicks [facility] Unavailable Unavailable Kenroy Hicks jen Unavailable Unavailable Evette Mccloud RN Unavailable Livier Gris Odell MD Unavailable [phone] Encounter Details Date Type Department Care Team (Late st Contact Info) Description 05/03/2020 Documentation Gastroententerology Yuliana Rain DO [address] [facility] [address] [place] [address] Social History Tobacco Use Types Packs/Day Years Used Date Smoking Tobacco: Former Smokeless Tobacco: Never Comments:Quit 1993 Alcohol Use Standard Drinks/Week Comments No 0 (1 standard drink = 0.6 oz pur e alcohol) Comments No Sex and Gender Information Value Date Recorded Sex Assigned at Not on file Legal Sex Female 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 Aur[facility] patient on 09/27/2023. Please contact infection prevention for instructions on obtaining surveillance cultures. 09/28/2023 09/28/2023 10/26/2023 3:05 AM C DT C. difficile suspected 06/13/2024 06/17/202406/14 3:05 AM VICTORIAN LITERATURE PROFESSOR C. difficile suspected 06/17/2024 06/17/202406/17 6:54 PM VICTORIAN LITERATURE PROFESSOR documented as of this encounter Care Teams Shower Screen Installer Relationship Specialty Start Date End Date KendrickbarrysissySosa DO PCP - General Family Medicine 01/12/20 Gris Mccain MD 49[address] [facility] GASTR[facility]ENTEROLOGY, [facility] [address] [place] [address] PCP - Home Infusion Attending Gastroenterology 12/12/24 Luis Miguel Medina MD [address] [facility] [id number] [place] [address] Surgeon Colon and Rectal Surgery 02/21/23 Beata Ambrosio MD [address] [place] [address] Referring Physician Gastroenterology 02/26/23 Star Griffiths MD 1 [facility] [place] [address] Consulting Physician Gastroenterology 02/27/23 Kingsley Ovalles MD 1 [facility] [place] [address] Consulting Physician Gastroenterology 02/27/23 Nory Jacques, [facility] [address] [facility] ([facility] Mailstop [phone] [place] [address] SHOP Outpatient Medical Affairs Director 06/01/23 07/01/23 Andreia Kidd RMA Surgical Prehabilitation and Readiness (SPAR) Coordinator 07/09/23 08/20/23 Lizeth Salazar MD Consulting Physician Infectious Diseases 07/12/23 Sangeeta Cruz, RN [address] [facility] [address] [place] [address] SHOP Outpatient Medical Affairs Director 10/01/23 10/28/23 Kenroy Hicks [facility] Home Infusion Pharmacist Pharmacy 12/02/24 Kenroy Hicks [facility] Pharmacist Pharmacy 12/02/24 03/22/25 Evette Mccloud, JOSÉ Home Infusion Nursing 12/05/24 documented as of this encounter
--- OUTSIDE RECORDS SUMMARY | 2025-04-16 16:08 | XMS_ITS ---
Author Organization [facility] Address [address] [place] [address] Care Team Providers Care Coordinator Of Health Services Name Role Phone Sosa Flowers Primary Care Provider [phone] Luis Miguel Medina MD Unavailable [phone] Beata Ambrosio MD Unavailable [phone] Star Griffiths MD Unavailable [phone] Kingsley Ovalles MD Unavailable [phone] Lizeth Salazar MD Unavailable [phone] Kenroy Hicks [facility] Unavailable Unavailable Evette Mccloud RN Unavailable Livier Gris Odell MD Unavailable [phone] RxHI TPN - TPN (Start Here) 1500 ml IV 3 Times a Week Status:Enrolled (Active) Start date:11/28/2024 Enrollment date:11/28/2024 Linked medications:water for injection,sterile,sodium acetate,sodium chloride,sod phosphate,monobasic-dibas,potassium chloride,calcium gluconate,magnesium sulfate,dextrose 70 % in water,parenteral amino acid 10% no.6,fat emul/soy/mct/oliv/fish oil,zinc/copper/manganese/selenium (Discontinued), water for injection,sterile,sodium acetate,sodium chloride,potassium chloride,potassium phos,m-ctppo-x-basic,calcium glucona te,magnesium sulfate,dextrose 70 % in water,parenteral amino acid 10% no.6,fat emul/soy/mct/oliv/fish oil,zinc/copper/manganese/selenium (Active) Related program episode:Home Infusion (Active) Overview Cutover complete Nichole Paris 12/12/2024 3:29 PM Case Team Name Relationship Phone Evette Mccloud RN Home Infusion Vickie Hicks [facility](Responsible Staff) Home Infusion Pharmacist Continued Care and Services Coordination This section includes services coordinated for RxHI TPN - TPN (Start Here) 1500 ml IV 3 Times a Week. Home Medical Care Name Services Phone [facility] Home Care Services Home Infusion and Injecti on
--- OUTSIDE RECORDS SUMMARY | 2025-04-16 16:08 | XMS_ITS | Encounter Summary ---
Author Organization [facility] Healthcare Address [address] [place] [address] Care Team Providers Care Cloth Folder Hand Name Role Phone Sosa Flowers DO Primary Care Provider [phone] Luis Miguel Medina MD Unavailable [phone] Beata Ambrosio MD Unavailable [phone] Star Griffiths MD Unavailable [phone] Kingsley Ovalles MD Unavailable [phone] Lizeth Salazar MD Unavailable [phone] Kenroy Hicks [facility] Unavailable Unavailable Evette Mccloud RN Unavailable Livier Gris Odell MD Unavailable [phone] Encounter Details Date Type Department Care Team (Late st Contact Info) Description 04/10/2025 Home Infusion [facility] Home Infusion Therapy [address] [place] [address] Michelle Valle Social History Tobacco Use Types Packs/Day Years [...] or isolation Patient unable to respond 11/06/2024 [facility] Utilities Answer Date Recorded In the past 12 months has th e electric, gas, oil, or water [employer] threatened to shut off services in your [...] often do you attend chur ch or congregational services? Never 10/02/2023 Do you belong to any clubs o r organizations such as restorationist groups, unions, fraternal or athletic groups, or [...] place to sleep or slept in a intermediate (including now)? No 10/02/2023 Personal Safety Answer Date Recorded Have you ever been in or are you currently in a harmful physical or emotional relationship or is someone making you feel afraid or unsafe? 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 Female 12:20 AM PROPERTY MANAGER Gender Identity Female 04/17/2021 10:27 AM CDT Sexual Orientation Straight 04/17/2021 10 :27 AM CDT documented as of this encounter Plan of Treatment Not on file documented as of this encounter Visit Diagnoses Not on filedocumented in this encounter Care Teams Cloth Folder Hand Relationship Specialty Start Date End Date Sosa Flowers DO PCP - General Family Medicine 01/12/20 Gris Mccain MD [address] [facility] GASTROENTEROLOGY, [facility] [address] [place] [address] PCP - Home Infusion Attending Gastroenterology 12/12/24 Luis Miguel Medina MD [address] [facility] [phone] [place] [address] Surgeon Colon and Rectal Surgery 02/21/23 Beata Ambrosio MD [address] [place] [address] Referring Physician Gastroenterology 02/26/23 Star Griffiths MD 1 [facility] [place] [address] Consulting Physician Gastroenterology 02/27/23 Kingsley Ovalles MD 1 [facility] [place] [address] Consulting Physician Gastroenterology 02/27/23 Lizeth Salazar MD 1 [facility] [place] [address] Consulting Physician Infectious Diseases 07/12/23 Kenroy Hicks, [facility] Home Infusion Pharmacist Pharmacy 12/02/24 Evette Mccloud, RN Home Infusion Nursing 12/05/24 documented as of this encounter
--- OUTSIDE RECORDS SUMMARY | 2025-04-16 16:08 | XMS_ITS ---
Author Organization [facility] Address [address] [place] [address] Care Team Providers Care Exceptional Student Education Aide Name Role Phone Sosa Flowers Primary Care Provider [phone] Luis Miguel Medina MD Unavailable [phone] Beata Ambrosio MD Unavailable [phone] Star Griffiths MD Unavailable [phone] Kingsley Ovalles MD Unavailable [phone] Lizeth Salazar MD Unavailable [phone] Kenroy Hicks [facility] Unavailable Unavailable Evette Mccloud RN Unavailable Livier Gris Odell MD Unavailable [phone] Hydration Therapy Status:Enrolled (Active) Start date:12/02/2024 Enrollment date:12/02/2024 Linked medications:0.9 % sodium chloride (Active) Related program episode:Home Infusion (Active) Overview Cutover complete Nichole Paris 12/12/2024 3:29 PM Case Team Name Relationship Phone Evette Mccloud RN Home Infusion Vickie Hicks [facility](Responsible Staff) Pharmacist Continued Care and Services Coordination This section includes services coordinated for Hydration Therapy. Home Medical Care Name Services Phone [facility] Home Care Services Home Infusion and Injecti on
--- OUTSIDE RECORDS SUMMARY | 2025-04-16 16:08 | XMS_ITS | Clinical Summary ---
Author Organization [facility] [place] [facility] [facility] Address [address] [address] Care Team Providers Care Ethanol Operator Name Role Phone Sosa Flowers DO Primary Care Provider [phone] Allergies Active Allergy Reactions Criticality Noted Date [...] on file Legal Sex Female 11:03 AM FLAG FOOTBALL COACH Gender Identity Not on file Sexual Orientation [...] lb 1.6 oz) 08/16/2022 2:22 P M FLAG FOOTBALL COACH Height 152.4 cm (5') 11/02/2021 2:52 PM CDT Body Mass Index 21.7 11/02/2021 2:52 PM CDT Plan of Treatment Health Maintenance Due Date Last Done Comments DTAP/TDAP/TD VACCINES (1 - Tdap) 1977 BREAST CANCER SCREENING 1998 FIT-DNA Q 3 years 2003 FIT/FOBT Q 1 year 2003 Flex Sig/CT Colonography Q 5 years 2003 ZOSTER VACCINE (2 of 2) 04/09/2019 02/12/2019 PNEUMOCOCCAL VACCINE 50+ YEA RS (2 of 2 - PCV20 or PCV21) 01/02/2020 01/01/2019 OSTEOPOROSIS SCREENING 2023 INFLUENZA VACCINE (#1) 2025 05/01/2019, 2017 COLORECTAL SCREENING 05/18/2032 05/18/2022, 05/18/2022, 09/16/2018 Colorectal Cancer Screening 05/18/2032 RSV VACCINE (60+ or ) (1 - 1-dose 75+ series) [address] [place] [address] CHOICE [id number] Care Teams Ethanol Operator Relationship Specialty Start Date End Date Sosa Flowers DO [address] [place] [id number] PCP - General Family Practice 11/02/21
== END 2025-04-16 13:18 | disposition home or self-care (01) ==
PROVIDERS: PCP Family Medicine; Visit Provider Family Medicine
DX: R05.9 Cough, unspecified (principal)
CPT/HCPCS: 71046

== ENCOUNTER 2025-04-24 14:43 | Outpatient (CLI) | payer MEDICARE, SELFPAY ==
--- OUTSIDE RECORDS SUMMARY | 2008-07-06 05:30 | XMS_ITS | Continuity of Care Document ---
Author Organization [facility] [place], [place] Address [address] [place] [address] Phone Care Team Providers Care Solid Plasterer Name Role Phone Tylor Leong Unavailable Unavailable Procedures Procedure Date Eye Exam & Treatment Optic Nerve Head Eval Refraction Frames Deluxe Progressive Lens, Plastic Progressive Lens, Plastic Frames Deluxe Tax - Medical Eye Exam & Treatment Advance Directives Directive Yes / No Effective Date File Name No Information Encounters Encounter Description Practice Location Reason(s) For Visit Diagnoses Date Provider Providers Copied on Encounter [facility], [id number] [place] [address] [address], [place], [place], [id number], [place] tel:[phone] SEC [facility] No Information 5200 8 Dang Mancusol. [address] [facility] [address], [place], [address], [place]. tel:[phone] [facility], [address] [place] [address] [address], [place], [place], [address], [place] tel:[phone] [facility] No Information 2-200 8 [facility] [employer]. [address] [facility], [address], [place], [place], [address], [place]. tel:[phone] Consulting Provider: [facility], [place], [address]. tel:[phone] [facility], [address] [place] [address] [address], [place], [place], [id number], [place] tel:[phone] [facility] [place] No Information 8-200 8 [facility] [employer]. [address] [facility], [address], [place], [address], [place]. tel:[phone] Referring Provider: Justin Dodge, [address] [place], [place] [address]ate [place] [address], [place], [address]. tel:[phone] lting Provider: Jeremie Monroe [address] [place], [place] [address]ate [facility], [place], [address]. tel:[phone] [facility], [address] [place] [address] [address], [place], [place], [id number], [place] tel:[phone] [facility] [place] No Information 3200 8 [facility] [employer]. [address] [facility], [facility] [address], [place], [place], [id number], [place]. tel:[phone] Referring Provider: Justin Dodge, [address] [place], [place] [address]ate Center [address], [place], [address]. tel:[phone] lting Provider: Jeremie Monroe [address] [place] [address], [place], [address]. tel:[phone] [facility], [address] [place] [address] [address], [place], [place], [id number], [place] tel:[phone] [facility] [place] No Information Dec-0 1-200 [address] [place] MICHELLE Anderson. [address] [place], [place] [address]ate Center , [address], [place], [address], [place]. tel:[phone] Family History Family Member Type Diagnosis Age At Onset No Information Payers Payer name Insurance type Covered republican ID Authoriza tion(s) No Information Social History Type Description Quantity Date Captured Comments Sex Female Smoking Status No Information Chief Complaint And Reason For Visit No Information Reason For Referral Reason For Referral No Information History Of Present Illness Encounter Date Complaint History Of Prese nt Illness No Information Functional Status Date Functional Assessmen t No Information Instructions Date Instruction Additional Infor mation No Information Assessments Type Assessment Date No Information Patient Care Teams Name Effective Dates (start - stop) Status Members No Information
--- NOTE | ~2025-04-24 | US_ITS ---
EXAMINATION: US venous doppler TRENT RDZ, 04/24/2025 14:57 CDT HISTORY: M79.89 - Other specified soft tissue disorders Comparison: None Technique: Multiple duarte scale and color Doppler sonographic images were obtained of the internal jugular, subclavian, axillary, brachial, basilar, radial and ulnar veins. Findings: Venous System:Normal flow, augmentation and compressibility. No echogenic thrombus identified. Soft tissues: Soft tissues are unremarkable. Impression: Negative for DVT. Reviewed, dictated and finalized at location P. Impression: Negative for DVT.
--- OUTSIDE RECORDS SUMMARY | 2025-04-24 14:46 | XMS_ITS ---
Author Organization [facility] Address [address] [place] [address] Care Team Providers Care Senior Quality Control Inspector Name Role Phone Sosa Flowers Primary Care Provider [phone] Luis Miguel Medina MD Unavailable [phone] Beata Ambrosio MD Unavailable [phone] Star Griffiths MD Unavailable [phone] Kingsley Ovalles MD Unavailable [phone] Lizeth Salazar MD Unavailable [phone] Kenroy Hicks [facility] Unavailable Unavailable Evette Mccloud RN Unavailable Livier Gris Odell MD Unavailable [phone] Rx[facility] TPN - TPN (Start Here) 1500 ml IV 3 Times a Week Status:Enrolled (Active) Start date:11/28/2024 Enrollment date:11/28/2024 Linked medications:water for injection,sterile,sodium acetate,sodium chloride,sod phosphate,monobasic-dibas,potassium chloride,calcium gluconate,magnesium sulfate,dextrose 70 % in water,parenteral amino acid 10% no.6,fat emul/soy/mct/oliv/fish oil,zinc/copper/manganese/selenium (Discontinued), water for injection,sterile,sodium acetate,sodium chloride,potassium chloride,potassium phos,f-iolhb-i-basic,calcium glucona te,magnesium sulfate,dextrose 70 % in water,parenteral amino acid 10% no.6,fat emul/soy/mct/oliv/fish oil,zinc/copper/manganese/selenium (Active) Related program episode:Home Infusion (Active) Overview Cutover complete Nichole Paris 12/12/2024 3:29 PM Case Team Name Relationship Phone Evette Mccloud RN Home Infusion Vickie Hicks [facility](Responsible Staff) Home Infusion Pharmacist Continued Care and Services Coordination This section includes services coordinated for Rx[facility] TPN - TPN (Start Here) 1500 ml IV 3 Times a Week. Home Medical Care Name Services Phone [facility] Home Care Services Home Infusion and Injecti on
--- OUTSIDE RECORDS SUMMARY | 2025-04-24 14:46 | XMS_ITS | Data Portability ---
Author Organization [place] - [facility] [employer], Main Office Address [address] [place] [address] Care Team Providers Care Web User Experience Strategist Name Role Phone SELVIN MCCOY Primary Care Provider SELVIN MCCOY Referring Provider [phone] Assessment No assessment recorded. Plan of Treatment Reminders Order Date Submit Date Provider Last Modified By Organization Details Last Modified Time Details Appointments None recorded. Lab T3, free, serum or plasma 2022 023 [facility] (Lab), [address] [place] [address], [id number], 3 15:12:09 TSH, serum or plasma [address] (Lab), [address] [place] [address], [address], 3 16:27:25 T4, free, serum 2022 023 [facility] (Lab), [address] [place] [address], [address], 3 14:37:06 CBC w/ auto diff 2022 023 [facility] (Lab), [address] [place] [address], [address], 3 14:34:11 vitamin D, 25-hydroxy, total, serum 2022 023 [facility] (Lab), [address] [place] [address], [address], 3 03:21:34 PTH (parathyroi d hormone), intact + calcium, serum or plasma [address] (Lab), [address] [place] [address], [address], 3 17:51:39 T3, free, serum or plasma 2022 023 [facility] (Lab), [address] [place] [address], [address], 3 17:51:10 TSH, serum or plasma [address] (Lab), [address] [place] [address], [address], 3 17:51:39 T4, free, serum [address] (Lab), [address] [place] [address], [address], 3 17:51:39 CMP, serum or plasma 2022 023 [facility] (Lab), [address] [place] [address], [address], 3 12:32:46 thyroid peroxidase (tpo) Ab, serum [address] (Lab), [address] [place] [address], [address], 3 17:51:39 Referral None recorded. Procedures None recorded. Surgeries None recorded. Imaging bone density 2022 023 [facility] (Imaging), [address] [place] [address] [address] [place] [address], [phone], 3 18:01:30 Medication Orders None recorded. Patient TargetsNo targets recorded. Patient InstructionsNo instructions recorded. Reason for Referral None Reported. Results Created Date Observation Date Name Description Value Unit Range Abnormal Flag Note LastModifiedBy Organization Detail LastModifiedTime 10/06/19 22 XR, hip + pelvi s, unila teral No observ ation record ed. [id number] [place] [address], [place], [address], 09/20/2022 04:52:09 Result Notes None recorded. Problems Name Problem SNOMED Code Status Onset Date Resolution Date Notes Provider Name and Address Organization Details Recorded Time Knee joint effusion 758491554 Active Not Available [facility] 3 04:45:18 Osteoarthr itis of knee 451690202 Active Not Available [facility] 3 04:45:18 Acquired hallux rigidus 1094162 Active Not Available [facility] 3 04:45:18 Irritable bowel syndrome 57867730 Active 2016 Not Available [facility] 3 04:45:18 Gastroesop hageal reflux disease 497752286 Active 2016 Not Available [facility] 3 04:45:18 Osteoarthr itis of finger joint 151738183 Active 2016 Not Available [facility] 3 04:45:18 Congenital deformity of foot 793327105 Active 2016 Not Available [facility] 3 04:45:18 Vitamin D deficiency 47120345 Active 2016 Not Available [facility] 3 04:45:18 Tendinitis 76770193 Active 2016 Not Available [facility] 3 04:45:18 Hyperlipid emia 42664925 Active 2016 Not Available [facility] 3 04:45:18 Allergic rhinitis 80658495 Active 2016 Not Available [facility] 3 04:45:18 Postcholec ystectomy syndrome 17901849 Active 2016 Not Available [facility] 3 04:45:18 Osteoarthr itis 221741284 Active 2021 Not Available [facility] 3 04:45:18 Pain of right hip joint 6766683639609 02 Active 2021 Not Available [facility] 3 04:45:18 Arthritis 3894821 Active 2022 Juliette Webb MD [address] [facility], [place] [address], [place], [address] , [employer] 3 09:27:53 Hypothyroi dism 16815048 Active 2022 Juliette Webb MD [address] [facility], [place] [address], [place], [address] , [facility] 3 17:49:03 Osteopenia 194310780 Active 2022 Juliette Webb MD [address] [facility], [place] [address], [place], [address] , [facility] 3 17:49:37 Pancytopen ia 745164273 Active 2022 Juliette Webb MD [address] [facility], [place] [address], [place], [address] , [facility] 3 17:51:00 Problem Notes None recorded. Procedures Surgical History Date Name Laterality Status Provider Name and Address Organization Details Recorded Time Knee arthroscopy/berman rgery completed Not Available [facility] 09/20/2022 04:40:56 excision of bunion completed Not Available [facility] 09/20/2022 04:40:56 Toe completed Not Available [facility] 07/2022 04:40:56 Imaging Results None recorded. Procedure Notes None recorded. Medical Equipment None Reported. Allergies Allergen ID Allergen Name Allergen Category Reaction Reaction Severity Criticality Documentation Date Start Date Code Code System Note Provider Name and Address Organization Details Recorded Time 6903 Substance with sulfonami de structure and antibacte rial mechanism of action (substanc e) medicatio n Not available Not available Not available 09/20/2022 99577 8003 SNOMED Not Available [facility] 04:51:47 6904 latex environme nt,medica tion Not available Not available Not available 09/20/2022 96252 91 RxNorm Not Available [facility] 04:51:47 6905 Celebrex medicatio n Not available Not available Not available 09/20/2022 49182 7 RxNorm Not Available [facility] 3 04:51:47 Medications Name Sig Start Date Stop Date Status Note LastModified by Organization Details LastModified Time cyclobenza ketan 10 mg tablet TAKE 1 TABLET BY MOUTH THREE TIMES DAILY NEEDED FOR MUSCLE SPASM active Not Available Not Available No t Available amoxicilli n 500 mg capsule TK 1 C PO Q 8 H 05/22 completed Not Available Not Available Not Available prednisone 10 mg tablet 02/27 completed Not Available Not Available Not Available doxycyclin e hyclate 100 mg capsule TAKE 1 CAPSULE BY MOUTH TWICE DAILY 12/12 completed Not Available Not Available Not Available paroxetine 10 mg tablet TK 1 T PO QD 05/12 completed Not Available Not Available Not Available clindamyci n HCl 300 mg capsule 02/06 completed Not Available Not Available Not Available trazodone 50 mg tablet TAKE 1 TABLET BY MOUTH AT BEDTIME 10/15 completed Not Available Not Available Not Available atorvastat in 10 mg tablet 12/12 completed Not Available Not Available Not Available azithromyc in 250 mg tablet TK 2 TS PO ON DAY 1, THEN TK 1 T PO D FOR 4 DAYS 02/27 completed Not Available Not Available Not Available ofloxacin 0.3 % eye drops INT 1 GTT INTO OPERATIVE EYE 3 XD. BEGIN 2 DAYS PRIOR TO SURGERY 05/22 completed Not Available Not Available Not Available fluconazol e 150 mg tablet TK 1 T PO Q 5 DAYS 02/27 completed Not Available Not Available Not Available benzonatat e 200 mg capsule TAKE 1 CAPLET PO THREE TIMES DAILY 05/12 completed Not Available Not Available Not Available valacyclov ir 1 gram tablet TAKE 2 TABLETS BY MOUTH EVERY 12 HOURS FOR 2 DOSES AT ONSET OF OUTBREAK active Not Available Not Available No t Available hydrocodon e 5 mg-acetami nophen 325 mg tablet TAKE 1 TABLET BY MOUTH EVERY 6 HOURS NEEDED FOR PAIN 12/12 completed Not Available Not Available Not Available meloxicam 15 mg tablet 09/19 completed Not Available Not Available Not Available phenazopyr idine 200 mg tablet TK 1 T PO TID 05/12 completed Not Available Not Available Not Available ondansetro n HCl 4 mg tablet TAKE 1 TABLET BY MOUTH EVERY 6 HOURS NEEDED FOR NAUSEA OR VOMITING 10/15 completed Not Available Not Available Not Available prednisone 20 mg tablet TAKE 3 TABLETS BY MOUTH DAILY FOR 5 DAYS THEN 2 TABLET DAILY FOR 5 DAYS THEN 1 TABLET DAILY FOR 5 DAYS THEN 1/2 TABLET BY DAILY FOR 6 DAYS. 02/06 completed Not Available Not Available Not Available prednisone 5 mg tablet 09/19 completed Not Available Not Available Not Available Anucort-HC 25 mg suppositor y UNWRAP AND INSERT 1 SUPPOSITO RY RECTALLY TWICE DAILY NEEDED FOR HEMORRHOI DS active Not Available Not Available No t Available clobetasol 0.05 % topical cream FRANCHESCA EXT AA BID 05/12 completed Not Available Not Available Not Available ciprofloxa bill 250 mg tablet TK 1 T PO BID FOR 7 DAYS 05/12 completed Not Available Not Available Not Available omeprazole 40 mg capsule,de layed release 09/19 completed Not Available Not Available Not Available triamcinol one acetonide 0.1 % topical cream APPLY TO THE AFFECTED AREA TWICE DAILY 12/12 completed Not Available Not Available Not Available spironolac tone 25 mg tablet TAKE 1 TABLET BY MOUTH DAILY active Not Available Not Available No t Available amoxicilli n 500 mg tablet 05/22 completed Not Available Not Available Not Available ketorolac 0.5 % eye drops 05/22 completed Not Available Not Available Not Available hydrocorti sone 2.5 % topical cream with perineal applicator APPLY RECTALLY TO THE AFFECTED AREA DAILY NEEDED FOR HEMORRHOI DS active Not Available Not Available No t Available amoxicilli n 875 mg tablet 12/15 completed Not Available Not Available Not Available alprazolam 0.25 mg tablet TAKE 1 TABLET BY MOUTH THREE TIMES DAILY NEEDED FOR ANXIETY 12/12 completed Not Available Not Available Not Available Deep Sea Nasal 0.65 % spray aerosol USE 1 SPRAY IN EACH NOSTRIL EVERY 4 HOURS 12/12 completed Not Available Not Available Not Available prednisolo ne acetate 1 % eye drops,susp ension 05/22 completed Not Available Not Available Not Available magnesium oxide 400 mg (241.3 mg magnesium) tablet TAKE 1 TABLET BY MOUTH DAILY active Not Available Not Available No t Available Synthroid 25 mcg tablet TAKE 1 TABLET ON SUNDAY, SUNDAY, SUNDAY AND SUNDAY AND TAKE 2 TABLETS ON SUNDAY, SUNDAY AND SUNDAY FOR HYPOTHYRO IDISM 2022 active Not Available Not Available Not Avai lable Kenalog 10 mg/mL suspension for injection In office injection administe red by the provider 02/06 completed [facility]: [phone] Not Available Not Available Not Available meclizine 25 mg tablet TAKE 1 TABLET BY MOUTH THREE TIMES DAILY NEEDED FOR DIZZINESS 10/15 completed Not Available Not Available Not Available benzonatat e 100 mg capsule TAKE 1 CAPSULE BY MOUTH THREE TIMES DAILY NEEDED FOR COUGH 02/06 completed Not Available Not Available Not Available hydrocodon e 7.5 mg-acetami nophen 325 mg tablet TAKE 1 TABLET BY MOUTH EVERY 6 HOURS NEEDED FOR PAIN active Not Available Not Available No t Available cephalexin 500 mg capsule TK ONE C PO TID 05/12 completed Not Available Not Available Not Available acyclovir 5 % topical ointment APPLY TOPICALLY TO THE AFFECTED AREA 6 TIMES DAILY FOR 7 DAYS 12/12 completed Not Available Not Available Not Available esomeprazo le magnesium 40 mg capsule,de layed release TK ONE C PO D 05/12 completed Not Available Not Available Not Available clotrimazo le-betamet hasone 1 %-0.05 % topical cream APPLY TOPICALLY TO THE AFFECTED AREA TWICE DAILY 02/06 completed Not Available Not Available Not Available prednisone 50 mg tablet 09/19 completed Not Available Not Available Not Available hydrocorti sone 100 mg/60 mL enema 02/06 completed Not Available Not Available Not Available nystatin-t riamcinolo ne 100,000 unit/g-0.1 % topical cream APPLY TO AFFECTED AREA 1 TO 2 TIMES DAILY active Not Available Not Available No t Available Synthroid 50 mcg tablet one tablet on Sun/Sun/ riday x 90 days active Not Available Not Available No t Available Xylocaine 20 mg/mL (2 %) injection solution In office injection administe red by the provider 02/06 completed Not Available Not Available Not Available omeprazole 20 mg capsule,de layed release TK 1 C QAM 1 HOUR BEFORE A MEAL active Not Available Not Available No t Available budesonide 0.5 mg/2 mL suspension for nebulizati on MIX 1 VIAL WITH 250ML OF SALINE AND IRRIGATE EACH NOSTRIL WITH HALF OF MIXTURE TWICE DAILY 12/12 completed Not Available Not Available Not Available lidocaine HCl 3 % topical cream APPLY 2-3 TIMES A DAY NEEDED FOR PAIN active Not Available Not Available No t Available mupirocin 2 % topical ointment APPLY 1-2 CENTIMETE RS IN FRONT OF NOSE TWICE DAILY 12/12 completed Not Available Not Available Not Available azelastine 137 mcg (0.1 %) nasal spray USE 1 TO 2 SPRAYS IN EACH NOSTRIL TWICE DAILY active Not Available Not Available No t Available levofloxac in 750 mg tablet TAKE 1 TABLET BY MOUTH EVERY DAY FOR 7 DAYS 03/29 completed Not Available Not Available Not Available methylpred nisolone 4 mg tablets in a dose pack FOLLOW PACKAGE DIRECTION S 12/12 completed Not Available Not Available Not Available albuterol sulfate HFA 90 mcg/actuat ion aerosol inhaler INHALE 2 PUFFS BY MOUTH EVERY 4 HOURS NEEDED FOR SHORTNESS OF BREATH OR WHEEZING 02/27 completed Not Available Not Available Not Available ondansetro n 4 mg disintegra ting tablet DISSOLVE 1 TABLET ON THE TONGUE EVERY 6 HOURS NEEDED FOR NAUSEA OR VOMITING active Not Available Not Available No t Available lisinopril 2.5 mg tablet TAKE 1 TABLET BY MOUTH DAILY 12/12 completed Not Available Not Available Not Available dicyclomin e 10 mg capsule TAKE 1 CAPSULE BY MOUTH FOUR TIMES DAILY active Not Available Not Available No t Available amoxicilli n 875 mg-potassi um clavulanat e 125 mg tablet TAKE 1 TABLET BY MOUTH TWICE DAILY FOR 14 DAYS 12/12 completed Not Available Not Available Not Available hydroxyzin e pamoate 25 mg capsule TAKE 1 TO 2 CAPLETS BY MOUTH THREE TIMES DAILY NEEDED FOR ITCHING 02/06 completed Not Available Not Available Not Available cyclobenza ketan 5 mg tablet TK 1 T PO QHS 05/12 completed Not Available Not Available Not Available acyclovir 5 % topical cream FRANCHESCA TOPICALLY AA FID FOR 4 DAYS PRF COLD SORE 10/15 completed Not Available Not Available Not Available Premarin 0.625 mg/gram vaginal cream APPLY 0.625 MG IN THE VAGINA EVERY NIGHT AT BEDTIME 3 TIMES PER WEEK 12/12 completed Not Available Not Available Not Available ciprofloxa bill 0.3 %-dexameth asone 0.1 % ear drops,susp ension INSTILL 4 DROPS IN BOTH EARS EVERY 12 HOURS FOR 7 DAYS 03/29 completed Not Available Not Available Not Available cholestyra mine (with sugar) 4 gram powder for susp in a packet MX AND DRK 1 PACKET PO BID WC active Not Available Not Available No t Available potassium chloride ER 10 mEq tablet,ext ended release(pa rt/cryst) 12/12 completed Not Available Not Available Not Available nitrofuran toin monohydrat e/macrocry stals 100 mg capsule TK 1 C PO BID 05/12 completed Not Available Not Available Not Available levothyrox ine 0.5mcg on opposite every other day. 12/12 completed Not Available Not Available Not Available omeprazole 20 mg BID 03/29 completed Not Available Not Available Not Available valacyclov ir 03/29 completed Not Available Not Available Not Available Calcium 600 + D(3) 10/15 completed Not Available Not Available Not Available lidocaine (PF) 10 mg/mL (1 %) injection solution In office injection administe red by the provider 10/15 completed [facility]: [phone] Not Available Not Available Not Available lidocaine 2 % mucosal jelly in applicator APPLY TOPICALLY TWICE A DAY NEEDED FOR PAIN 12/12 completed Not Available Not Available Not Available GaviLyte-G 236 gram-22.74 gram-6.74 gram-5.86 gram oral solution TAKE 4000ML PO ONCE FOR 1 DOSE DIRECTED 12/12 completed Not Available Not Available Not Available Stelara 90 mg/mL subcutaneo us syringe 03/29 completed Not Available Not Available Not Available Xifaxan 550 mg tablet active Not Available Not Available Not Available potassium chloride ER 20 mEq tablet,ext ended release TAKE 1 TABLET BY MOUTH TWICE DAILY active Not Available Not Available No t Available Entyvio 300 mg intravenou s solution Inject by intraveno us route. 10/15 completed EVERY 8 WEEKS Not Available Not Available Not Available Inflectra 500 mg fusion 02/06 completed Not Available Not Available Not Available Tymlos 80 mcg/dose (3,120 mcg/1.56 mL) subcutaneo us pen injector Inject 80 microgram s every day by subcutane ous route at bedtime for 30 days. 10/15 completed Not Available Not Available Not Available Lagevrio 200 mg capsule (EUA) TAKE 4 CAPSULES BY MOUTH EVERY 12 HOURS FOR 5 DAYS 12/12 completed Not Available Not Available Not Available Vitals Date Recorded Body height Provider Name an d Address Organization Details Last Updated DateTime 10/05/2021 152.4 cm Not Available [facility] 3 04:44:44 Date Recorded Body height Body mass index (BMI) Body weight Body temperature Respiratory rate Heart rate Systolic And Diastolic Provider Name and Address Organization Details Last Updated DateTime 3 152.4 cm 20.5 kg/m2 32347.2 g 98.3 [degF] 18 /min 102 /min 127/73 mm[Hg] AD[facility]FO [facility] [employer] [facility] 3 17:29:50 Date Recorded Body mass index (BMI) Body height Body weight Provider Name and Address Organization Details Last Updated DateTime 02/06/2022 23.6 kg/m2 152.4 cm 00014.68 g Not Available [facility] 09/20/2022 04:44:46 Date Recorded Body height Body mass index (BMI) Body weight Body temperature Respiratory rate Heart rate Systolic And Diastolic Provider Name and Address Organization Details Last Updated DateTime 3 152.4 cm 18.7 kg/m2 70264.1 5 g 98.1 [degF] 14 /min 109 /min 113/67 mm[Hg] Cathy Goff RN [facility] [employer] [facility] 3 16:06:25 Date Recorded Body mass index (BMI) Body height Oxygen saturation Oxygen saturation in Arterial blood by Pulse oximetry Heart rate Body temperature Body weight Systolic And Diastolic Provider Name and Address Organization Details Last Updated DateTime 2 22.8 kg/m2 152.4 cm 98 % 98 % 98 /min 97.8 [degF] 71454.3 1 g 120/80 mm[Hg] Not Available [facility] 3 04:44:43 Social History Question Answer Notes LastModified by Organizat ion Details LastModified Time Tobacco Smoking Status Former Smoker quit 1993 Not Available [facility] 09/20/2022 04:40:47 What Is Your Level Of Caffeine Consumption? Moderate [id number] Information not available 09/20/2022 How Much Tobacco Do You Chew? None [id number] Information not available 09/20/2022 In The 14 Days Before Symptom Onset, Have You Had Close Contact With A Laboratory-confir med COVID-19 While That Case Was Ill? No [id number] Information not available 09/20/2022 In The 14 Days Before Symptom Onset, Have You Had Close Contact With A Person Who Is Under Investigation For COVID-19 While That Person Was Ill? No [id number] Information not available 09/20/2022 Which Illicit Or Recreational Drugs Have You Used? None [id number] Information not available 09/20/2022 What Was The Date Of Your Most Recent Tobacco Screening? 11/03/2020 [id number] Information not available 09/20/2022 What Is Your Relationship Status? [id number] Information not available 09/20/2022 Have You Recently Traveled Abroad? No [id number] Information not available 09/20/2022 Sex: Female Functional Status Question Answer Note LastModified by Organizat ion Details LastModified Time What is your level of alcohol consumption? 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 Never used electronic cigarettes [id number] Information not available 09/20/2022 Mental Status None recorded. Family History Relationship Description Onset Age of this Age Resolved Age Notes LastModified by Organization Details LastModified Time Father Heart disease [id number] Not available 09/20/2022 04:41:02 Father Family history of malignant neoplasm [id number] Not available 09/20/2022 04:41:02 Father Hypertensive disorder [id number] Not available 09/20/2022 04:41:02 Father Kidney disease [id number] Not available 09/20/2022 04:41:02 Notes:OUT Medical History Condition Response BLINDNESS N KIDNEY STONES N MRSA N CARPAL TUNNEL SYNDROME N LUNG DISEASE/DISORDER N HISTORY OF DRUG ABUSE N COPD N RADIATION / CHEMOTHERAPY N SPORTS INJURY N ANKLE PAIN N BLOOD DISEASES N SCHIZOPHRENIA N SHINGLES N BOWEL PROBLEMS N SHOULDER PAIN N DEPRESSION (INCLUDING POST ) N STROKE/TIA N ULCERS N KNEE PAIN N BENIGN PROSTATIC HYPERPLASIA N OBESITY N GERD/NAUSEA Y ANEURYSM N URINARY/BLADDER/KIDNEY PROBLEMS N CORONARY ARTERY DISEASE (CAD) N ADDICTION CONCERNS N USE OF BLOOD THINNERS N SKIN PROBLEMS N EMPHYSEMA N MUSCLE,JOINT OR BONE PROBLEMS N DVT N STOMACH ULCERS N BLOOD CLOTS N USE OF NSAIDS N CONCUSSION OR SPINAL TRAUMA N NEUROPATHY N AIDS/HIV N FRACTURES N ELBOW PAIN N HYPERTENSION N TOURETTE'S N ANXIETY DISORDER N Metal allergy N BLOOD TRANSFUSION N ANEMIA/BLOOD DISORDER Y BIPOLAR DISORDER N BRONCHITIS N OSTEOARTHRITIS N TUBERCULOSIS N FOOT PROBLEM N HEART VALVE DISORDERS N ALLERGIES/HAYFEVER N SOFT TISSUE INJURY N INFECTIOUS DISEASE N HEART ARRHYTHMIA N INSOMNIA N RHEUMATOID ARTHRITIS N HIGH CHOLESTEROL / HYPERLIPIDEMIA N EDEMA N CHRONIC PAIN SYNDROME N CAROTID BLOCKAGE N BACK / NECK PROBLEMS N HAVE YOU BEEN HOSPITALIZED OR SEEN IN [facility] IN THE PAST YEAR ? Y BURSITIS N HERNIATED DISC N DIALYSIS N FIBROMYALGIA N OSTEOPOROSIS N ARTHRITIS Y NO SIGNIFICANT PAST MEDICAL HISTORY N PERIPHERAL NEUROPATHY N DIABETES, TYPE N HEARTBURN / REFLUX N HEPATITIS / LIVER DISEASE N GOUT N SLEEP DISORDER N ALZHEIMER'S DISEASE N HERPES N SEIZURES/EPILEPSY N HEADACHES/MIGRAINES N VASCULAR DISEASE N HIP PAIN N Blood Disorder N DIZZINESS N HEAD TRAUMA OR INJURY N HEART DISEASE/HEART PROBLEMS N MULTIPLE SCLEROSIS N CARDIAC ARRHYTHMIA N CANCER: SPECIFY N ANESTHESIA COMPLICATIONS N ATRIAL FIBRILLATION N AUTOIMMUNE DISEASE N Gynecological HistoryNo gynecological history recorded. Obstetrics History GPAL:G 0 P 0 0 0 0 Past Encounters Encounter ID Performer Location Encounter Start Date Encounter Closed Date Diagnosis/Indication Diagnosis SNOMED-CT Code Diagnosis ICD10 Code Diagnosis IMO Codes Diagnosis Note [id number] Luis Miguel Leone MD [facility] [place] [address] [place] [address] 10/15/2020 00:00:00 10/16/2020 12:30:30 [id number] Juliette Webb MD [facility] [place] [address] [place] [address] 10/29/2020 00:00:00 10/29/2020 09:21:13 [id number] Luis Miguel Leone MD [facility] [place] [address] [place] [address] 11/03/2020 00:00:00 11/08/2020 12:26:01 [id number] Luis Miguel Leone MD [facility] [place] [address] [place] [address] 02/04/2021 00:00:00 02/07/2021 13:46:15 [id number] Juliette Webb MD [facility] [place] [address] [place] [address] 03/29/2021 00:00:00 03/29/2021 13:28:15 [id number] Juliette Webb MD [facility] [place] [address] [place] [address] 09/20/2021 00:00:00 09/21/2021 12:34:53 [id number] Luis Miguel Leone MD [facility] [place] [address] [place] [address] 10/05/2021 00:00:00 10/05/2021 16:57:15 [id number] Luis Miguel Leone MD [facility] [place] [address] [place] [address] 02/06/2022 00:00:00 02/06/2022 18:00:36 [id number] Juliette Webb MD [facility] [place] [address] [place] [address] 03/28/2022 00:00:00 03/28/2022 21:21:35 [id number] MD [facility] [place] [address] [place] [address] 12/12/2022 17:17:27 12/12/2022 18:01:30 Hypothyroidism 84831865 E03.9 labs are older from August - for repeat labwork- continue on synthroid 25 mcg on / /Sun/ y and 50 mcg on Mon/Sun/ iday. She was reminded to take her synthroid on empty stomach with glass of water and wait one hour to eat or have her coffee in morning and up to 4 hours if ever taking any heartburn or reflux medication s to help optimize absorption . Discussed paleo like diet with restrictio n of GMOs to help with energy and to optimize absorption of vitamins and minerals and reduce inflammati on. Osteopenia [id number] M85 .80 Repeat bone density this summer to screen for further bone loss. Continue on vitamin D 3 800 IU daily along with 1200 mg daily. Pancytopenia [id number] D 61.818 Likely secondary to inflectra treatment for crohns disease- she follows hematology . Spent up to 28 minutes preparing to see the patient (eg, review of tests), obtaining and/or reviewing separately obtained history, performing a medically appropriat e examinatio n and evaluation , counseling and educating the patient, ordering medication s, tests, along with documentin g clinical informatio n in the electronic health record, independen tly interpreti ng results and communicat ing results to the patient. RTC in 4-6 months. Patient was provided a handwritte n lab order which contains our fax number. If she chooses to go outside of the [facility] system to obtain labwork she was advised to provide our fax number and my informatio n to the lab she will be obtaining labwork from in order to have her labs properly forwarded over for me to review so there is no loss of follow up due to use of outside network. She was also advised to contact our clinic informing us that she has completed her labwork so we are aware we will need to reach out to the appropriat e laboratory to request her results be forwarded to us so I might have the ability to review and make further medical decision making in her case. She voiced understand ing. [id number] Juliette Webb MD [facility]ena[facility] [address] [place] [address] 02/27/2023 15:58:33 02/27/2023 16:47:00 Hypothyroidism [id number] E03.9 Patient completed her PCP labwork and these did not include thyroid studies- provided new orders to complete this week to assess need to modify therapy further. For now recommend patient continue on synthroid 25 mcg on / /Sun/ y and 50 mcg on /. She was reminded to take her synthroid on empty stomach with glass of water and wait one hour to eat or have her coffee in morning and up to 4 hours if ever taking any heartburn or reflux medication s to help optimize absorption . Discussed paleo like diet with restrictio n of GMOs to help with energy and to optimize absorption of vitamins and minerals and reduce inflammati on. Osteopenia [id number] M85 .80 Repeat bone density scheduled for Mar 28- will follow- for now continue on vitamin D 3 800 IU daily along with 1200 mg daily. Spent up to 25 minutes preparing to see the patient (eg, review of tests), obtaining and/or reviewing separately obtained history, performing a medically appropriat e examinatio n and evaluation , counseling and educating the patient, ordering medication s, tests, along with documentin g clinical informatio n in the electronic health record, independen tly interpreti ng results and communicat ing results to the patient. Patient can be followed by PCP - she/he is aware of my resignatio n and last day of May 04. If needed his/her PCP can refer patient to another endocrinol ogist in the area. All questions /concerns answered and refills necessary at visit today. Health Concerns Section Related Observation LastModified by Organization Detai ls LastModified Time None Recorded Concern Status LastModified by Organization Details LastModified Time None Recorded Advance Directives Directive None Recorded Payers Insurance Date Sequence Insurance Name Policy Number Policy Lira Covered Member ID Lira Member ID Guarantor Name 03/05/2023 1 [facility] [id number] Muriel Wade [id number] Muriel Wade Notes Date Note Type Note Provider Name and Address Organization Details Recorded Time 12/12/2022 text/html ROS as noted in the HPI 62 yo female comes in for follow up in management of hypothyroidism. To note she has osteopenia. last seen in Mar at that time we had patient continue on synthroid 25 mcg on //Sun/ and 50 mcg on Sun/Sun/Sunday. we sent for bone loss workup overall normal. repeat bone density this summer. she was sick this last winter- she feels she had covid and doesn't feel the same. She has lost over 40 pounds since 2020 and 12 pounds since her last visit. She had nuclear stress test and echo/found to have LBBB - she will have all these tests to see if anything is needed to help with the LBBB. She stopped her cholesterol medication and BP medication as her blood pressure has been dropping lower. three weeks ago she had hemorrhoidectomy. Since she has noticed more swelling in her legs since having covid-had doppler and negative for clot. She has no pain in her legs. She is on inflectra for crohns disease and getting these every 4-6 weeks. labs from 10/12:iron sat 21%FT3 of 2.9 pg/mLTPO negvit D 26.6 ng/mLFT4 of 1.4 ng/dLpancytopenia on CBC (sent for RINKU/rheumatoid panel in October)84/116/33/28pt h 29.6 pg/mLcalcium 8.3 mg/dLCr normalglucose 102 mg/dLTSH 1.830 uIU/ml labs from 11/12:CCP/RF/RINKU negativeESR mildly high at 26 (cutoff 23)CP normal Juliette Webb MD [address] [facility] [address], [place], [address], [facility] [employer] 12/12/2022 20:56:50 02/27/2023 text/html ROS as noted in the HPI 62 yo female comes in for follow up in management of hypothyroidism and osteopenia last seen in November at that time we had patient continue on synthroid 25 mcg on //Sun/ and 50 mcg on Sun/Sun/Sunday. She is seeing a blindstitch lining feller and was advised her LFT elevation is from malnourishment and from her crohns disease. They are encouraging she gain 10 pounds. She has lost 10 pounds since November- down to 95 pounds. She is trying to eat more- she can get TNP-she has seen a foiling machine adjuster at [facility] and she is doing. She is doing ensure three times a day. She has no concerns with anxiety or palpitations. She has plenty of synthroid at home. She is going for bone density scan Mar 28. labs from 02/16/23:vit D 55 ng/mL105/115/34/47gl ucose 78 mg/dLLFT highCr normal Juliette Webb MD [address] [facility] [address], [place], [address], [place] [facility] 02/27/2023 20:01:24 OBGyn Episode No OBEpisode recorded.
--- OUTSIDE RECORDS SUMMARY | 2025-04-24 14:46 | XMS_ITS | Encounter Summary ---
Author Organization [facility] Address [address] [place] [address] Phone Care Team Providers Care Associate Director Financial Aid Name Role Phone Sosa Flowers DO Primary Care Provider [phone] Luis Miguel Medina MD Unavailable [phone] Beata Ambrosio MD Unavailable [phone] Star Griffiths MD Unavailable [phone] Kingsley Ovalles MD Unavailable [phone] Nory JacquesW Unavailable +[phone] Andreia Kidd Unavailable Unavailable Lizeth Salazar MD Unavailable [phone] Sangeeta Cruz RN Unavailable [phone] Kenroy Hicks [facility] Unavailable Unavailable Kenroy Hicks jen Unavailable Unavailable Evette Mccloud RN Unavailable Livier Gris Odell MD Unavailable [phone] Encounter Details Date Type Department Care Team [...] on file Legal Sex Female 12:20 AM MUSIC INTERN Gender Identity Female 04/17/2021 10:27 AM CDT [...] Time Diarrhea 08/16/2023 08/18/2023 08/22/2023 9:17 AM MUSIC INTERN Exposure, Contact Comment:Patient exposed to C. Auris patient on 09/27/2023. Please contact infection prevention for instructions on obtaining surveillance cultures. 09/28/2023 09/28/2023 10/26/2023 3:05 AM C DT C. difficile suspected 06/13/2024 06/17/202406/14 3:05 AM MUSIC INTERN C. difficile suspected 06/17/2024 06/17/202406/17 6:54 PM MUSIC INTERN documented as of this encounter Care Teams Associate Director Financial Aid Relationship Specialty Start Date End Date Kendrickbarrysissy Sosa BhatiaDO PCP - General Family Medicine 01/12/20 Gris Mccain MD [address] [facility] DIV IM GASTROENTEROLOGY, [address] [place] [address] PCP - Home Infusion Attending Gastroenterology 12/12/24 Luis Miguel Medina MD [address] [facility] [phone] [place] [address] Surgeon Colon and Rectal Surgery 02/21/23 Beaat Ambrosio MD [address] [place] [address] Referring Physician Gastroenterology 02/26/23 Star Griffiths MD 1 [facility] [place] [address] Consulting Physician Gastroenterology 02/27/23 Kingsley Ovalles MD 1 [facility] [place] [address] Consulting Physician Gastroenterology 02/27/23 Nory Jacques, [facility] [address] [facility] ([facility] Mailstop [phone] [place] [address] [employer] Outpatient School Cafeteria Cook Head 06/01/23 07/01/23 Andreia Kidd RMA Surgical Prehabilitation and Readiness (SPAR) Coordinator 07/09/23 08/20/23 Lizeth Salazar MD Consulting Physician Infectious Diseases 07/12/23 Sangeeta Cruz RN [address] [facility] [address] [place] [address] [place] Cafeteria Cook Head 10/01/23 10/28/23 Kenroy Hicks [facility] Home Infusion Pharmacist Pharmacy 12/02/24 Kenroy Hicks [facility] Pharmacist Pharmacy 12/02/24 03/22/25 Evette Mccloud, [facility] Home Infusion Nursing 12/05/24 documented as of this encounter
--- OUTSIDE RECORDS SUMMARY | 2025-04-24 14:46 | XMS_ITS | Encounter Summary ---
Author Organization [facility] Address [address] [place] [address] Phone Care Team Providers Care Bee Keeper Name Role Phone Sosa Flowers DO Primary Care Provider [phone] Luis Miguel Medina MD Unavailable +[phone] Beata Ambrosio MD Unavailable [phone] Star Grififths MD Unavailable [phone] Kingsley Ovalles MD Unavailable [phone] Nory JacquesW Unavailable [phone] Andreia Kidd Unavailable Unavailable Lizeth Salazar MD Unavailable [phone] Sangeeta Cruz RN Unavailable [phone] Kenroy Hicks [facility] Unavailable Unavailable Kenroy Hicks jen Unavailable Unavailable Evette Mccloud RN Unavailable Livier Gris Odell MD Unavailable [phone] Encounter Details Date Type Department Care Team [...] on file Legal Sex Female 12:20 AM BABY NURSE Gender Identity Female 04/17/2021 10:27 AM CDT [...] Time Diarrhea 08/16/2023 08/18/2023 08/22/2023 9:17 AM BABY NURSE Exposure, Contact Comment:Patient exposed to C. Auris patient on 09/27/2023. Please contact infection prevention for instructions on obtaining surveillance cultures. 09/28/2023 09/28/2023 10/26/2023 3:05 AM C DT C. difficile suspected 06/13/2024 06/17/202406/14 3:05 AM BABY NURSE C. difficile suspected 06/17/2024 06/17/202406/17 6:54 PM BABY NURSE documented as of this encounter Care Teams Bee Keeper Relationship Specialty Start Date End Date Sosa Flowers DO PCP - General Family Medicine 01/12/20 Gris Mccain MD [address] [facility] IM GASTROENTEROLOGY, [address] [place] [address] PCP - Home Infusion Attending Gastroenterology 12/12/24 Luis Miguel Medina MD [address] [facility] [phone] [place] [address] Surgeon Colon and Rectal Surgery 02/21/23 Beata Ambrosio MD [address] [place] [address] Referring Physician Gastroenterology 02/26/23 Star Griffiths MD 1 [facility] [place] [address] Consulting Physician Gastroenterology 02/27/23 Kingsley Ovalles MD 1 [facility] [place] [address] Consulting Physician Gastroenterology 02/27/23 Nory Jacques LCSW [address] [facility] ([facility] Mailstop [phone] [place] [address] SHOP Outpatient Director Of Cardiac Rehabilitation 06/01/23 07/01/23 Andreia Kidd RMA Surgical Prehabilitation and Readiness (SPAR) Coordinator 07/09/23 08/20/23 Lizeth Salazar MD Consulting Physician Infectious Diseases 07/12/23 Sangeeta Cruz, RN [address] [facility] [address] [place] [address] SHOP Outpatient Director Of Cardiac Rehabilitation 10/01/23 10/28/23 Kenroy Hicks [facility] Home Infusion Pharmacist Pharmacy 12/02/24 Kenroy Hicks [facility] Pharmacist Pharmacy 12/02/24 03/22/25 Evette Mccloud, RN Home Infusion Nursing 12/05/24 documented as of this encounter
--- OUTSIDE RECORDS SUMMARY | 2025-04-24 14:46 | XMS_ITS | Encounter Summary ---
Author Organization [facility] Healthcare Address [address] [place] [address] Care Team Providers Care Construction Trades Teacher Name Role Phone Sosa Flowers Jannette MCALLISTER Primary Care Provider [phone]- [phone] Luis Miguel Medina MD Unavailable [phone] Beata Ambrosio MD Unavailable [phone] Star Griffiths MD Unavailable [phone] Kingsley Ovalles MD Unavailable Nory Jacques LCSW Unavailable Andreia Kidd Unavailable Unavailable Lizeth Salazar MD Unavailable Sangeeta Cruz RN Unavailable [phone] Kenroy Hicks [facility] Unavailable Unavailable Kenroy Hicks jen Unavailable Unavailable Evette Mccloud RN Unavailable Livier Gris Odell MD Unavailable [phone] Encounter Details Date Type Department Care Team (Late st Contact Info) Description 05/03/2020 Documentation Gastroententerology Yuliana Rain DO [address] [facility] [address] [place] [address] Social History Tobacco Use Types Packs/Day Years Used Date Smoking Tobacco: Former Smokeless Tobacco: Never Comments:Quit 1993 Alcohol Use Standard Drinks/Week Comments No 0 (1 standard drink = 0.6 oz pur e alcohol) Comments No Sex and Gender Information Value Date Recorded Sex Assigned at Not on file Legal Sex Female 12:20 AM FILLER MIXER Gender Identity Female 04/17/2021 10:27 AM CDT Sexual Orientation Straight 04/17/2021 10 :27 AM CDT documented as of this encounter Plan of Treatment Not on file documented as of this encounter Visit Diagnoses Not on filedocumented in this encounter Additional Health Concerns Infection Onset Date Last Indicated Resolved Time Diarrhea 08/16/2023 08/18/2023 08/22/2023 9:17 AM FILLER MIXER Exposure, Contact Comment:Patient exposed to C. Auris patient on 09/27/2023. Please contact infection prevention for instructions on obtaining surveillance cultures. 09/28/2023 09/28/2023 10/26/2023 3:05 AM C DT C. difficile suspected 06/13/2024 06/17/202406/14 3:05 AM FILLER MIXER C. difficile suspected 06/17/2024 06/17/202406/17 6:54 PM FILLER MIXER documented as of this encounter Care Teams Construction Trades Teacher Relationship Specialty Start Date End Date KendrickbarrysissySosa DO PCP - General Family Medicine 01/12/20 Gris Mccain MD [address] [facility] GASTROENTEROLOGY, [facility] [address] [place] [address] PCP - Home Infusion Attending Gastroenterology 12/12/24 Luis Miguel Medina MD [address] [facility] [phone] [place] [address] Surgeon Colon and Rectal Surgery 02/21/23 Beata Ambrosio MD [address] [place] [address] Referring Physician Gastroenterology 02/26/23 Star Griffiths MD 1 [facility] [place] [address] Consulting Physician Gastroenterology 02/27/23 Kingsley Ovalles MD 1 [facility] [place] [address] Consulting Physician Gastroenterology 02/27/23 Nory Jacques, [facility] [address] [facility] ([place] Mailstop [phone] [place] [address] SHOP Outpatient Memorial Designer 06/01/23 07/01/23 Andreia Kidd RMA Surgical Prehabilitation and Readiness (SPAR) Coordinator 07/09/23 08/20/23 Lizeth Salazar MD Consulting Physician Infectious Diseases 07/12/23 Sangeeta Cruz, RN [address] [facility] [address] [place] [address] SHOP Outpatient Memorial Designer 10/01/23 10/28/23 Kenroy Hicks [facility] Home Infusion Pharmacist Pharmacy 12/02/24 Kenroy Hicks [facility] Pharmacist Pharmacy 12/02/24 03/22/25 Evette Mccloud, [facility] Home Infusion Nursing 12/05/24 documented as of this encounter
--- OUTSIDE RECORDS SUMMARY | 2025-04-24 14:46 | XMS_ITS ---
Author Organization [facility] Address [address] [place] [address] Care Team Providers Care Manager News Name Role Phone Sosa Flowers Primary Care Provider [phone] Luis Miguel Medina MD Unavailable [phone] Beata Ambrosio MD Unavailable [phone] Star Griffiths MD Unavailable [phone] Kingsley Ovalles MD Unavailable [phone] Lizeth Salazar MD Unavailable [phone] Kenroy Hicks [facility] Unavailable Unavailable Evette Mccloud RN Unavailable Livier Gris Odell MD Unavailable [phone] Hydration Therapy Status:Enrolled (Active) Start date:12/02/2024 Enrollment date:12/02/2024 Linked medications:0.9 % sodium chloride (Active) Related program episode:Home Infusion (Active) Overview Cutover complete Nichole Paris 12/12/2024 3:29 PM Case Team Name Relationship Phone Evette Mccloud RN Home Infusion Vickie Hicks [facility](Responsible Staff) Pharmacist Continued Care and Services Coordination This section includes services coordinated for Hydration Therapy. Home Medical Care Name Services Phone [facility] Home Care Services Home Infusion and Injecti on
--- OUTSIDE RECORDS SUMMARY | 2025-04-24 14:46 | XMS_ITS | Encounter Summary ---
Author Organization [facility] Healthcare Address [address] [place] [address] Care Team Providers Care Berry Picker Machine Operator Name Role Phone Sosa Flowers DO Primary Care Provider [phone] Luis Miguel Medina MD Unavailable [phone] Beata Ambrosio MD Unavailable [phone] Star Griffiths MD Unavailable [phone] Kingsley Ovalles MD Unavailable [phone] Lizeth Salazar MD Unavailable [phone] Kenroy Hicks [facility] Unavailable Unavailable Evette Mccloud RN Unavailable Livier Gris Odell MD Unavailable [phone] Encounter Details Date Type Department Care Team (Late st Contact Info) Description 04/22/2025 Home Infusion [facility] Home Infusion Therapy [address] [place] [address] Edgardo Denney, [facility] Social History Tobacco Use Types Packs/Day Years [...] or isolation Patient unable to respond 11/06/2024 [facility] Utilities Answer Date Recorded In the past [...] often do you attend chur ch or caodaism services? Never 10/02/2023 Do you belong to any clubs o r organizations such as denominational groups, unions, fraternal or athletic groups, or [...] place to sleep or slept in a alf (including now)? No 10/02/2023 Personal Safety Answer Date Recorded Have you ever been in or are you currently in a harmful physical or emotional relationship or is someone making you feel afraid or unsafe? 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 Female 12:20 AM SWATCHER Gender Identity Female 04/17/2021 10:27 AM CDT Sexual Orientation Straight 04/17/2021 10 :27 AM CDT documented as of this encounter Plan of Treatment Not on file documented as of this encounter Visit Diagnoses Not on filedocumented in this encounter Care Teams Berry Picker Machine Operator Relationship Specialty Start Date End Date Sosa Flowers DO PCP - General Family Medicine 01/12/20 Gris Mccain MD [address] [facility] GASTROENTEROLOGY, [facility] [address] [place] [address] PCP - Home Infusion Attending Gastroenterology 12/12/24 Luis Miguel Medina MD [address] [facility] [phone] [place] [address] Surgeon Colon and Rectal Surgery 02/21/23 Beata Ambrosio MD [address] [place] [address] Referring Physician Gastroenterology 02/26/23 Star Griffiths MD 1 [facility] [place] [address] Consulting Physician Gastroenterology 02/27/23 Kingsley Ovalles MD 1 [facility] [place] [address] Consulting Physician Gastroenterology 02/27/23 Lizeth Salazar MD 1 [facility] [place] [address] Consulting Physician Infectious Diseases 07/12/23 Kenroy Hicks, [facility] Home Infusion Pharmacist Pharmacy 12/02/24 Evette Mccloud, RN Home Infusion Nursing 12/05/24 documented as of this encounter
--- OUTSIDE RECORDS SUMMARY | 2025-04-24 14:46 | XMS_ITS | Encounter Summary ---
Author Organization [facility] Address [address] [place] [address] Phone Care Team Providers Care Math Coach Name Role Phone Sosa Flowers DO Primary Care Provider [phone] Luis Miguel Medina MD Unavailable [phone] Beata Ambrosio MD Unavailable [phone] Star Griffiths MD Unavailable [phone] Kingsley Ovalles MD Unavailable [phone] Nory JacquesW Unavailable [phone] Andreia Kidd Unavailable Unavailable Lizeth Salazar MD Unavailable [phone] Sangeeta Cruz RN Unavailable [phone] Kenroy Hicks [facility] Unavailable Unavailable Kenroy Hicks jen Unavailable Unavailable Evette Mccloud RN Unavailable Livier Gris Odell MD Unavailable [phone] Encounter Details Date Type Department Care Team [...] on file Legal Sex Female 12:20 AM COMPENSATION/BENEFITS SPECIALIST Gender Identity Female 04/17/2021 10:27 AM CDT [...] Time Diarrhea 08/16/2023 08/18/2023 08/22/2023 9:17 AM COMPENSATION/BENEFITS SPECIALIST Exposure, Contact Comment:Patient exposed to C. Auris patient on 09/27/2023. Please contact infection prevention for instructions on obtaining surveillance cultures. 09/28/2023 09/28/2023 10/26/2023 3:05 AM C DT C. difficile suspected 06/13/2024 06/17/202406/14 3:05 AM COMPENSATION/BENEFITS SPECIALIST C. difficile suspected 06/17/2024 06/17/202406/17 6:54 PM COMPENSATION/BENEFITS SPECIALIST documented as of this encounter Care Teams Math Coach Relationship Specialty Start Date End Date Sosa Flowers DO PCP - General Family Medicine 01/12/20 Gris Mccain MD [address] [facility] DIV IM GASTROENTEROLOGY, [facility] [address] [place] [address] PCP - Home Infusion Attending Gastroenterology 12/12/24 Luis Miguel Medina MD [address] [facility] [phone] [place] [address] Surgeon Colon and Rectal Surgery 02/21/23 Beata Ambrosio MD [address] [place] [address] Referring Physician Gastroenterology 02/26/23 Star Griffiths MD 1 [facility] [place] [address] Consulting Physician Gastroenterology 02/27/23 Kingsley Ovalles MD 1 [facility] [place] [address] Consulting Physician Gastroenterology 02/27/23 Nory Jacques, PRODUCT REPRESENTATIVE [address] [facility] ([facility] [phone] [place] [address] SHOP Outpatient Chief Of Staff Doctor 06/01/23 07/01/23 Andreia Kidd RMA Surgical Prehabilitation and Readiness (SPAR) Coordinator 07/09/23 08/20/23 Lizeth Salazar MD Consulting Physician Infectious Diseases 07/12/23 Sangeeta Cruz, RN [address] [facility] [address] [place] [address] SHOP Outpatient Chief Of Staff Doctor 10/01/23 10/28/23 Kenroy Hicks [facility] Home Infusion Pharmacist Pharmacy 12/02/24 Kenroy Hicks [facility] Pharmacist Pharmacy 12/02/24 03/22/25 Evette Mccloud, [facility] Home Infusion Nursing 12/05/24 documented as of this encounter
--- OUTSIDE RECORDS SUMMARY | 2025-04-24 14:46 | XMS_ITS | Clinical Summary ---
Author Organization [facility] Address [address] [place] [address] Care Team Providers Care Implementation Services Analyst Name Role Phone Sosa Flowers DO Primary Care Provider +1- [phone] Allergies Active Allergy Reactions Criticality Noted Date [...] on file Legal Sex Female 11:03 AM COMMERCIAL ANALYST Gender Identity Not on file Sexual Orientation [...] lb 1.6 oz) 08/16/2022 2:22 P M COMMERCIAL ANALYST Height 152.4 cm (5') 11/02/2021 2:52 PM [...] (1 - 1-dose 75+ series) [address] [place] [address] CHOICE [id number] Care Teams Implementation Services Analyst Relationship Specialty Start Date End Date Sosa Flowers DO [address] [place] [id number] PCP - General Family Practice 11/02/21
--- OUTSIDE RECORDS SUMMARY | 2025-04-24 14:46 | XMS_ITS | Encounter Summary ---
Author Organization [facility] Address [address] [place] [address] Phone Care Team Providers Care Cost Estimator Name Role Phone KendrickbarrysissySosa DO Primary Care Provider +[phone]- [phone] Luis Miguel Medina MD Unavailable +[phone] Beata Ambrosio MD Unavailable [phone] Star Griffiths MD Unavailable [phone] Kingsley Ovalles MD Unavailable [phone] Lizeth Salazar MD Unavailable [phone] Kenroy Hicks [facility] Unavailable Unavailable Kenroy Hicks [facility] Unavailable Unavailable Evette Mccloud RN Unavailable Livier Gris Odell MD Unavailable [phone] Encounter Details Date Type Department Care Team [...] experiencing loneliness or isolatio n Never 11/09/2023 [facility] Utilities Answer Date Recorded In the past [...] often do you attend chur ch or rastafarian services? Never 10/02/2023 Do you belong to any clubs o r organizations such as yazidi groups, unions, fraternal or athletic groups, or [...] place to sleep or slept in a fdc (including now)? No 10/02/2023 Personal Safety Answer Date Recorded Have you ever been in or are you currently in a harmful physical or emotional relationship or is someone making you feel afraid or unsafe? Denies 10/16/2023 Comments No Sex and Gender Information Value Date Recorded Sex Assigned at Not on file Legal Sex Female 12:20 AM APPRISE COUNSELOR Gender Identity Female 04/17/2021 10:27 AM CDT [...] C. difficile suspected 06/13/2024 06/17/202406/14 3:05 AM APPRISE COUNSELOR C. difficile suspected 06/17/2024 06/17/202406/17 6:54 PM APPRISE COUNSELOR documented as of this encounter Care Teams Cost Estimator Relationship Specialty Start Date End Date Sosa Flowers DO PCP - General Family Medicine 01/12/20 Gris Mccain MD [address] [facility] GASTROENTEROLOGY, [address] [address] PCP - Home Infusion Attending Gastroenterology 12/12/24 Luis Miguel Medina MD [address] [facility] [phone] [place] [address] Surgeon Colon and Rectal Surgery 02/21/23 Beata Ambrosio MD [address] [place] [address] Referring Physician Gastroenterology 02/26/23 Star Griffiths MD 1 [facility] [place] [address] Consulting Physician Gastroenterology 02/27/23 Kingsley Ovalles MD 1 [facility] [place] [address] Consulting Physician Gastroenterology 02/27/23 Lizeth Salazar MD 1 [facility] [place] [address] Consulting Physician Infectious Diseases 07/12/23 Kenroy Hicks [facility] Home Infusion Pharmacist Pharmacy 12/02/24 Kenroy Hicks [facility] Pharmacist Pharmacy 12/02/24 03/22/25 Evette Mccloud, JOSÉ Home Infusion Nursing 12/05/24 documented as of this encounter
--- OUTSIDE RECORDS SUMMARY | 2025-04-24 14:46 | XMS_ITS | Encounter Summary ---
Author Organization [facility] Address [address] [place] [address] Phone Care Team Providers Care Test Rack Operator Name Role Phone Alfred De Souza MD Primary Care Provider [phone] Sosa Flowers DO Primary Care Provider + [phone] Luis Miguel Medina MD Unavailable [phone] Beata Ambrosio MD Unavailable [phone] Star Griffiths MD Unavailable [phone] Kingsley Ovalles MD Unavailable [phone] Nory JacquesW Unavailable +[phone] Andreia Kidd Unavailable Unavailable Lizeth Salazar MD Unavailable [phone] Sangeeta Cruz RN Unavailable [phone] Kenroy Hicks RPh Unavailable Unavailable Kenroy Hicks RPjen Unavailable Unavailable Evette Mccloud RN Unavailable Livier Gris Odell MD Unavailable [phone] Encounter Details Date Type Department Care Team [...] on file Legal Sex Female 12:20 AM PASSENGER AGENT Gender Identity Female 04/17/2021 10:27 AM CDT [...] Time Diarrhea 08/16/2023 08/18/2023 08/22/2023 9:17 AM PASSENGER AGENT Exposure, Contact Comment:Patient exposed to C. Auris patient on 09/27/2023. Please contact infection prevention for instructions on obtaining surveillance cultures. 09/28/2023 09/28/2023 10/26/2023 3:05 AM C DT C. difficile suspected 06/13/2024 06/17/202406/14 3:05 AM PASSENGER AGENT C. difficile suspected 06/17/2024 06/17/202406/17 6:54 PM PASSENGER AGENT documented as of this encounter Care Teams Test Rack Operator Relationship Specialty Start Date End Date Alfred De Souza MD [address] [place] [address] PCP - General 03/03/15 01/11/20 Sosa Flowers DO [address] [place] [address] PCP - General Family Medicine 01/12/20 Gris Mccain MD [address] [facility] GA[facility], [facility] [address] [place] [address] PCP - Home Infusion Attending Gastroenterology 12/12/24 Luis Miguel Medina MD [address] [facility] [phone] [place] [address] Surgeon Colon and Rectal Surgery 02/21/23 Beata Ambrosio MD [address] [place] [address] Referring Physician Gastroenterology 02/26/23 Star Griffiths MD [address] [facility] [place] [address] Consulting Physician Gastroenterology 02/27/23 Kingsley Ovalles MD 1 [facility] [place] [address] Consulting Physician Gastroenterology 02/27/23 Nory Jacques, DEEP FAT [employer]Y [employer]OOK [address] [facility] ([facility] Mailstop [phone] [place] [address] SHOP Outpatient Medical Registrar 06/01/23 07/01/23 Andreia Kidd RMA Surgical Prehabilitation and Readiness (SPAR) Coordinator 07/09/23 08/20/23 Lizeth Salazar MD Consulting Physician Infectious Diseases 07/12/23 Sangeeta Cruz, RN [address] [facility] [address] [place] [address] SHOP Outpatient Medical Registrar 10/01/23 10/28/[address] [facility] Home Infusion Pharmacist Pharmacy 12/02/[address] [facility] Pharmacist Pharmacy 12/02/24 03/22/25 Evette Mccloud, RN Home Infusion Nursing 12/05/24 documented as of this encounter
--- OUTSIDE RECORDS SUMMARY | 2025-04-24 14:46 | XMS_ITS | Encounter Summary ---
Author Organization [facility] Address [address] [place] [address] Care Team Providers Care Repairer Switchgear Name Role Phone Sosa Flowers DO Primary Care Provider [phone] Luis Miguel Medina MD Unavailable [phone] Beata Ambrosio MD Unavailable +[phone] Star Griffiths MD Unavailable [phone] Kingsley Ovalles MD Unavailable Andreia Kidd Unavailable Unavailable Lizeth Salazar MD Unavailable [phone] Sangeeta Cruz RN Unavailable [phone] Kenroy Hicks [facility] Unavailable Unavailable Kenroy Hicks [facility] Unavailable Unavailable Evette Mccloud RN Unavailable Livier Gris Odell MD Unavailable [phone] Encounter Details Date Type Department Care Team (Late st Contact Info) Description 08/09/2023 Treatment [facility] PATHOLOGY [address] [facility] [address] [place] [address] Kyaw Arroyo MD [address] [facility] [id number] [place] [address] Social History Tobacco Use Types Packs/Day Years [...] often do you attend chur ch or roman catholic services? Never 06/01/2023 Do you belong to any clubs o r organizations such as sabianist groups, unions, fraternal or athletic groups, or [...] place to sleep or slept in a fci (including now)? No 06/01/2023 Personal Safety Answer Date Recorded Getting School Help Needed Denies 07/02 Comments No Sex and Gender Information Value Date Recorded Sex Assigned at Not on file Legal Sex Female 12:20 AM AIRPORT MAINTENANCE CHIEF Gender Identity Female 04/17/2021 10:27 AM CDT [...] this patient. Contact Information: Please contact the [facility] Transfusion Medicine Service at (option 1) with any questions. This report has been prepared by: Kyaw Arroyo MD Attestation: I have personally reviewed the antibody result and agree with the interpretation contained in this written blood bank report. Tiffanie Wilkinson MD PhD ORT MAINTENANCE CHIEF ORT MAINTENANCE CHIEF documented in this encounter Plan of Treatment Not on file documented as of this encounter Visit Diagnoses Not on filedocumented in this encounter Additional Health Concerns Infection Onset Date Last Indicated Resolved Time Diarrhea 08/16/2023 08/18/2023 08/22/2023 9:17 AM AIRPORT MAINTENANCE CHIEF Exposure, Contact Comment:Patient exposed to C. Auris patient on 09/27/2023. Please contact infection prevention for instructions on obtaining surveillance cultures. 09/28/2023 09/28/2023 10/26/2023 3:05 AM C DT C. difficile suspected 06/13/2024 06/17/202406/14 3:05 AM AIRPORT MAINTENANCE CHIEF C. difficile suspected 06/17/2024 06/17/202406/17 6:54 PM AIRPORT MAINTENANCE CHIEF documented as of this encounter Care Teams Repairer Switchgear Relationship Specialty Start Date End Date Sosa Flowers DO PCP - General Family Medicine 01/12/20 Gris Mccain MD [address] [facility] GASTROENTEROLOGY, [facility] [address], [place] [address] PCP - Home Infusion Attending Gastroenterology 12/12/24 Luis Miguel Medina MD [address] [facility] [phone] [place] [address] Surgeon Colon and Rectal Surgery 02/21/23 Beata Ambrosio MD [address] [place] [address] Referring Physician Gastroenterology 02/26/23 Star Griffiths MD 1 [facility] [place] [address] Consulting Physician Gastroenterology 02/27/23 Kingsley Ovalles MD 1 [facility] [place] [address] Consulting Physician Gastroenterology 02/27/23 Andreia Kidd RMA Surgical Prehabilitation and Readiness (SPAR) Coordinator 07/09/23 08/20/23 Lizeth Salazar MD Consulting Physician Infectious Diseases 07/12/23 Sangeeta Cruz RN [address] [facility] [address] [place] [address] SHOP Outpatient Product Finisher 10/01/23 10/28/23 Kenroy Hicks [facility] Home Infusion Pharmacist Pharmacy 12/02/24 Kenroy Hicks [facility] Pharmacist Pharmacy 12/02/24 03/22/25 Evette Mccloud, JOSÉ Home Infusion Nursing 12/05/24 documented as of this encounter
--- OUTSIDE RECORDS SUMMARY | 2025-04-24 14:46 | XMS_ITS | Encounter Summary ---
Author Organization [facility] Address [address] [place] [address] Phone Care Team Providers Care Sap Sd Analyst Name Role Phone Sosa Flowers DO Primary Care Provider [phone] Luis Miguel Medina MD Unavailable [phone] Beata Ambrosio MD Unavailable [phone] Star Griffiths MD Unavailable [phone] Kingsley Ovalles MD Unavailable [phone] Nory JacquesW Unavailable [phone] Andreia Kidd Unavailable Unavailable Lizeth Salazar MD Unavailable [phone] Sangeeta Cruz RN Unavailable [phone] Kenroy Hicks [facility] Unavailable Unavailable Kenroy Hicks jen Unavailable Unavailable Evette Mccloud RN Unavailable Livier Gris Odell MD Unavailable [phone] Encounter Details Date Type Department Care Team [...] on file Legal Sex Female 12:20 AM MONUMENT STONECUTTER Gender Identity Female 04/17/2021 10:27 AM CDT [...] Time Diarrhea 08/16/2023 08/18/2023 08/22/2023 9:17 AM MONUMENT STONECUTTER Exposure, Contact Comment:Patient exposed to C. Auris patient on 09/27/2023. Please contact infection prevention for instructions on obtaining surveillance cultures. 09/28/2023 09/28/2023 10/26/2023 3:05 AM C DT C. difficile suspected 06/13/2024 06/17/202406/14 3:05 AM MONUMENT STONECUTTER C. difficile suspected 06/17/2024 06/17/202406/17 6:54 PM MONUMENT STONECUTTER documented as of this encounter Care Teams Sap Sd Analyst Relationship Specialty Start Date End Date KendrickbarrysissySosa JannetteDO PCP - General Family Medicine 01/12/20 Gris Mccain MD [address] [facility] GASTROENTEROLOGY, [facility] [address] [place] [address] PCP - Home Infusion Attending Gastroenterology 12/12/24 Luis Miguel Medina MD [address] [facility] [phone] [place] [address] Surgeon Colon and Rectal Surgery 02/21/23 Beata Ambrosio MD [address] [place] [address] Referring Physician Gastroenterology 02/26/23 Star Griffiths MD 1 [facility] [place] [address] Consulting Physician Gastroenterology 02/27/23 Kingsley Ovalles MD 1 [facility] [place] [address] Consulting Physician Gastroenterology 02/27/23 Nory Jacques, [facility] [address] [facility] ([facility]) Mailstop [phone] [place] [address] Monitor 06/01/23 07/01/23 Andreia Kidd RMA Surgical Prehabilitation and Readiness (SPAR) Coordinator 07/09/23 08/20/23 Lizeth Salazar MD Consulting Physician Infectious Diseases 07/12/23 Sangeeta Cruz, RN [address] [facility] [address] [place] [address] Monitor 10/01/23 10/28/23 Kenroy Hicks [facility] Home Infusion Pharmacist Pharmacy 12/02/24 eKnroy Hicks [facility] Pharmacist Pharmacy 12/02/24 03/22/25 Evette Mccloud, JOSÉ Home Infusion Nursing 12/05/24 documented as of this encounter
--- OUTSIDE RECORDS SUMMARY | 2025-04-24 14:46 | XMS_ITS | Encounter Summary ---
Author Organization [facility] Address [address] [place] [address] Phone Care Team Providers Care Biscuitware Brusher Name Role Phone KendrickbarrysissySosa DO Primary Care Provider [phone] Luis Miguel Medina MD Unavailable +[phone] Beata Ambrosio MD Unavailable +[phone] Star Griffiths MD Unavailable [phone] Kingsley Ovalles MD Unavailable [phone] Lizeth Salazar MD Unavailable [phone] Kenroy Hicks [facility] Unavailable Unavailable Kenroy Hicks [facility] Unavailable Unavailable Evette Mccloud RN Unavailable Livier Gris Oedll MD Unavailable [phone] Encounter Details Date Type Department Care Team [...] experiencing loneliness or isolatio n Never 01/08/2024 [facility] Utilities Answer Date Recorded In [...] often do you attend chur ch or methodist services? Never 10/02/2023 Do you belong to any clubs o r organizations such as anabaptism groups, unions, fraternal or athletic groups, or [...] on file Legal Sex Female 12:20 AM FACILITIES AND GROUNDS DIRECTOR Gender Identity Female 04/17/2021 10:27 AM CDT [...] C. difficile suspected 06/13/2024 06/17/202406/14 3:05 AM FACILITIES AND GROUNDS DIRECTOR C. difficile suspected 06/17/2024 06/17/202406/17 6:54 PM FACILITIES AND GROUNDS DIRECTOR documented as of this encounter Care Teams Biscuitware Brusher Relationship Specialty Start Date End Date Sosa Flowers DO PCP - General Family Medicine 01/12/20 Gris Mccain MD [address] [facility] GASTROENTEROLOGY, [facility] [address], [place] [address] PCP - Home Infusion Attending Gastroenterology 5/23/25 Luis Miguel Medina MD [address] [facility] [phone] [place] [address] Surgeon Colon and Rectal Surgery 02/21/23 Beata Ambrosio MD [address] [place] [address] Referring Physician Gastroenterology 02/26/23 Star Griffiths MD 1 [facility] [place] [address] Consulting Physician Gastroenterology 02/27/23 Kingsley Ovalles MD 1 [facility] [place] [address] Consulting Physician Gastroenterology 02/27/23 Lizeth Salazar MD 1 [facility] [place] [address] Consulting Physician Infectious Diseases 07/12/23 Kenroy Hicks jen Home Infusion Pharmacist Pharmacy 12/02/24 Kenroy Hicks [facility] Pharmacist Pharmacy 12/02/24 03/22/25 Evette Mccloud, JOSÉ Home Infusion Nursing 12/05/24 documented as of this encounter
--- OUTSIDE RECORDS SUMMARY | 2025-04-24 14:46 | XMS_ITS | Clinical Summary ---
Author Organization [facility] Address [address] [place] [address] Care Team Providers Care Crop Puller Name Role Phone Sosa Flowers DO Primary Care Provider [phone] Luis Miguel Medina MD Unavailable [phone] Beata Ambrosio MD Unavailable [phone] Star Griffiths MD Unavailable [phone] Kingsley Ovalles MD Unavailable Lizeth Salazar MD Unavailable [phone] Kenroy Hicks [facility] Unavailable Unavailable Evette Mccloud RN Unavailable Livier Gris Odell MD Unavailable [phone] Allergies Active Allergy Reactions Criticality Noted Date Comments Celecoxib Swelling Medium 01/28/2019 Chlorhexidine Gluconate Itching Low 01/12/2025 Clindamycin Rash Medium 10/21/2021 Fentanyl Nausea And Vomiting Low 10/18/2022 Latex Rash Medium 08/20/2018 Sulfa (Sulfonamide Antibiotics) Rash Medium 07/24 Medications levothyroxine (SYNTHROID) 50 mcg tablet Take 1 tablet (50 mcg total) by mouth power plant manager before breakfast Active omeprazole (PriLOSEC) 20 mg capsule Take 1 capsule (20 mg total) by mouth every morning 12/09/2 022 Active 0.9 % sodium chloride ([facility] sodium chloride 0.9%) injection Infuse 10 mL [...] daily,supplement, Informant: Self, Reported on 03/16/2025 sodium chloride 0.9% injectionIndicati ons:High output ileostomy (HCC) Infuse 10 mL IV as needed for line care 40391 mL 04/14/20 11:59 PM CDT 025 2024 Active heparin 10 unit/mL syringeIndication s:High output ileostomy (HCC) Infuse 5 mL (50 Units total) IV as needed (line care) 26036 mL 04/14/20 25 11:59 PM CDT 025 2024 Active 0.9 % sodium chloride (sodium chloride 0.9%) 0.9% infusionIndicatio ns:High output ileostomy (HCC) Infuse 1,000 mL IV daily Infuse 1000ml of Normal Saline solution every 24 hours via rate flow tubing over 1-2 hours at 250-500 ml/hour. Store at room temperature. [id number] mL 04/21/20 2:20 PM CDT 2024 Active Additional Information Patient [...] hours by CADD pump at 158.4 mL/hr. 38156 mL 04/21/20 2:20 PM CDT 2025 Active oxyCODONE (ROXICODONE) 5 [...] for nausea or vomiting 20 tablet 2 Active loperamide (IMODIUM A-D) 2 mg tablet Take 2 tablets (4 mg total) by mouth 4 (four) times a day as needed for diarrhea 100 tablet 1 Active multivitamin, adult, (MVI) solution injectionIndicati ons:High output ileostomy (HCC) Add contents of one BLUE top vial & and one WHITE top vial (10 mL total) to TPN prior to administration. Mix TPN well prior to infusing 1530 mL 04/21/20 25 2:20 PM CDT 025 2025 Active diphenoxylate-atr opine (LOMOTIL) 2.5-0.025 mg per tabletIndications :diarrhea Take 2 tablets by mouth 4 (four) times a day as needed for diarrhea 120 tablet 5 025 2025 Active upadacitinib (Rinvoq) 30 mg extended release tabletIndications :Crohn's Disease Take 1 tablet (30 mg total) by mouth daily 30 tablet 5 Active sodium bicarbonate 650 mg tabletIndications :Acidosis Take 1 tablet (650 mg total) by mouth 3 (three) times a day 270 tablet 1 025 Active atorvastatin (LIPITOR) 10 mg tablet Take 1 tablet (10 mg total) by mouth daily 2022 Discontinued(N o longer clinically indicated) Rinvoq 30 mg extended release tabletIndications :Crohn's Disease TAKE ONE TABLET BY MOUTH EVERY DAY 30 tablet 5 025 2024 Discontinued sodium bicarbonate 650 mg tabletIndications :Acidosis Take 1 tablet (650 mg total) by mouth daily 90 tablet 3 025 2024 Discontinued Active Problems Problem Noted Date Diagnosed Date [...] 40 /min. She does not have a twisting frame operator and has asked me to assume her [...] 09/27/2023 Assessment & Plan (09/28/2023 12:50 PM LOCAL GOVERNMENT LEGISLATOR): Patient presenting with LUE swelling and redness [...] 09/27/2023 Assessment & Plan (09/27/2023 2:47 AM LOCAL GOVERNMENT LEGISLATOR): - continue home synthroid Ileostomy in place 09/22/2023 Assessment & Plan (09/28/2023 12:48 PM LOCAL GOVERNMENT LEGISLATOR): - RD c/s for TPN - continue [...] 08/07/2023 Assessment & Plan (08/07/2023 8:00 PM LOCAL GOVERNMENT LEGISLATOR): Patient is followed by home health nurse, [...] 08/07/2023 Assessment & Plan (08/07/2023 8:04 PM LOCAL GOVERNMENT LEGISLATOR): Crohn's disease: Was taken off steroids recently, stable disease, does not endorse significant symptom burden. GERD: Resume home BPI Hypothyroidism: Resume home levothyroxine NAFLD: Alk-phos 192, AST 52, around baseline, patient use cholestyramine p.r.n.. Crohn's disease 07/11/2023 Assessment & Plan (09/27/2023 2:46 AM LOCAL GOVERNMENT LEGISLATOR): Ileal CD Dx 2019. Previously on entyvio [...] 05/25/2023 Assessment & Plan (05/29/2023 9:53 AM LOCAL GOVERNMENT LEGISLATOR): No systemic manifestations, mucosal involvement, or worsening laboratory studies to suggest life-threatening process. Timing following start of ganciclovir suggests this as cause. Unfortunately, if ganciclovir indeed causative is likely to persist unless drug stopped, and alternative antiviral therapies appear inferior due to toxicities, cost, and/or potential development of resistance. Continue supportive cares as suggested by Dermatology. Assessment & Plan (05/28/2023 2:42 PM LOCAL GOVERNMENT LEGISLATOR): No systemic manifestations, mucosal involvement, or worsening laboratory studies to suggest life-threatening process. Timing following start of ganciclovir suggests this as cause. Unfortunately, if ganciclovir indeed causative is likely to persist unless drug stopped, and alternative antiviral therapies appear inferior due to toxicities, cost, and/or potential development of resistance. Continue supportive cares as suggested by Dermatology. Assessment & Plan (05/27/2023 11:59 AM LOCAL GOVERNMENT LEGISLATOR): No systemic manifestations, mucosal involvement, or worsening [...] 05/24/2023 Assessment & Plan (09/27/2023 2:46 AM LOCAL GOVERNMENT LEGISLATOR): No longer on treatment for this given CMV PCR detectable but not quantifiable during last admission per ID and GI discussion. Assessment & Plan (05/31/2023 9:26 AM LOCAL GOVERNMENT LEGISLATOR): Diarrhea and cytopenia in context of Crohn [...] scheduled Assessment & Plan (05/28/2023 2:41 PM LOCAL GOVERNMENT LEGISLATOR): Diarrhea and cytopenia in context of Crohn disease with recent pharmacologic immunosuppression strongly suggestive of CMV enteritis. Viral DNA PCR diminished following start of ganciclovir; unclear if repeat check will be needed prior to release from hospital. Plan to continue ganciclovir at discharge. See below. Assessment & Plan (05/27/2023 11:58 AM LOCAL GOVERNMENT LEGISLATOR): Diarrhea and cytopenia in context of Crohn [...] of the small bowel. Bcx, HIV, cdiff, PATIENT RESOURCE SPECIALIST RVP all negative. CMV PCR + 05/16--5730. [...] 1 Assessment & Plan (05/30/2023 12:01 PM LOCAL GOVERNMENT LEGISLATOR): On exam, pt with noticeable pitting edema of LLE. Doppler of left lower extremity on admit showed superficial vein thrombus. Superficial veins involved include the left great saphenous vein at mid and distal calf, area of pain. Repeat Doppler on 05/29 showed no DVT. -pt denies hx of DVT and PE -krishna yap Assessment & Plan (05/28/2023 2:43 PM LOCAL GOVERNMENT LEGISLATOR): Doppler of left lower extremity showed superficial vein thrombus. Superficial veins involved include the left great saphenous vein at mid and distal calf, area of pain. Given increasing edema of limb and active inflammation would exclude extension into deep system prior to release from hospital; awaiting repeat venous duplex (ordered several days ago). Assessment & Plan (05/27/2023 12:00 PM LOCAL GOVERNMENT LEGISLATOR): Doppler of left lower extremity showed superficial [...] 05/17/2023 Assessment & Plan (05/31/2023 9:27 AM LOCAL GOVERNMENT LEGISLATOR): Of unclear cause; partially resolved. Platelet count improved, now WNL; WBC improving. (Rinvoq had been suspected earlier as causative, though thrombocytopenia not listed in Micromedex among adverse effects of Rinvoq.) May also have been CMV-mediated. Assessment & Plan (05/28/2023 2:42 PM LOCAL GOVERNMENT LEGISLATOR): Of unclear cause; partially resolved. Platelet count improved; WBC fluctuating, though improvement likewise suggested. (Interestingly, Rinvoq had been suspected earlier as causative, though thrombocytopenia not listed in Micromedex among adverse effects of Rinvoq.) ?CMV-mediated? Assessment & Plan (05/27/2023 11:59 AM LOCAL GOVERNMENT LEGISLATOR): Of unclear cause. Platelet count improved; WBC [...] 02/25/2023 Assessment & Plan (09/27/2023 2:47 AM LOCAL GOVERNMENT LEGISLATOR): On TPN and ileostomy diet with eventual goal to wean off of TPN. - RD c/s Assessment & Plan (05/30/2023 12:03 PM LOCAL GOVERNMENT LEGISLATOR): Nutrition following for TPN; appreciate recs thus far. Plan to continue at discharge to optimize prior to planned bowel resection. -per nutrition, pt should continue PO calcium, vit D, and B12 supplementation after d/c Assessment & Plan (05/28/2023 2:42 PM LOCAL GOVERNMENT LEGISLATOR): Nutrition following for TPN; appreciate recs thus far. Plan to continue at discharge to optimize prior to planned bowel resection. Assessment & Plan (05/27/2023 11:59 AM LOCAL GOVERNMENT LEGISLATOR): Nutrition following for TPN; appreciate recs thus [...] (10/26/2022): Added automatically from request for surgery [id number] Chronic parotitis 10/13/2021 NAFLD (nonalcoholic fatty liver disease) 021 Essential hypertension 10/18/2020 Dyslipidemia 10/18/2020 Osteopenia of necks of both femurs 01/17/2020 Iron deficiency anemia due to chronic blood loss 08/28/2019 High risk medications (not anticoagulants) long- term use 03/19/2019 Crohn's disease of small and large intestines with complication ([facility]) 02/03/2019 Overview (06/10/2023): Year of diagnosis: 2018. [...] new or increased in extent, involving the soy-gx-usyzgw ileum. There is minimal narrowing with possible [...] surgery. Assessment & Plan (05/29/2023 12:56 PM LOCAL GOVERNMENT LEGISLATOR): - On Rinvoq at home, currently being held. 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 - avoid aggressive antidiarrheal management due to underlying stricturing disease - Continue TPN for nutritional optimization for eventual resection per CRS. Assessment & Plan (05/28/2023 2:40 PM LOCAL GOVERNMENT LEGISLATOR): - On Rinvoq at home, currently being held. 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 - avoid aggressive antidiarrheal management due to underlying stricturing disease Continue TPN for nutritional optimization for eventual resection per CRS. Assessment & Plan (05/27/2023 11:58 AM LOCAL GOVERNMENT LEGISLATOR): - On Rinvoq at home, currently being [...] recs Assessment & Plan (09/13/2021 2:45 PM LOCAL GOVERNMENT LEGISLATOR): - Will maximize IFX therapy by increasing it to 10 mg/kg q4 weeks - Will assess treatment response with colonoscopy/MRE in 4-6 months - Refer to Dermatology for rash - Refer to ENT for chronic sinusitis Gastroesophageal reflux disease without esophagi tis 08/20/2018 Assessment & Plan (09/27/2023 2:48 AM LOCAL GOVERNMENT LEGISLATOR): - continue home PPI Resolved Problems Problem Noted Date Diagnosed Date Resolved Date Severe malnutrition 06/10/2023 06/10/20 23 Hyponatremia 05/17/2023 08/02/2023 Assessment & Plan (05/29/2023 12:57 PM LOCAL GOVERNMENT LEGISLATOR): Remains mild. Likely due to hypovolemia engendered by diarrhea from active Crohn disease plus/minus CMV enteritis. No additional management warranted. Assessment & Plan (05/28/2023 2:41 PM LOCAL GOVERNMENT LEGISLATOR): Remains mild. Likely due to hypovolemia engendered by diarrhea from active Crohn disease plus/minus CMV enteritis. No additional management warranted. Assessment & Plan (05/27/2023 11:58 AM LOCAL GOVERNMENT LEGISLATOR): Remains mild. Likely due to hypovolemia engendered [...] 05/29/2023 Assessment & Plan (05/29/2023 12:58 PM LOCAL GOVERNMENT LEGISLATOR): CMV DNA +, 5k international units/ml, patient [...] scheduled Assessment & Plan (05/28/2023 2:41 PM LOCAL GOVERNMENT LEGISLATOR): CMV DNA +, 5k international units/ml, patient [...] rash. Assessment & Plan (05/27/2023 11:58 AM LOCAL GOVERNMENT LEGISLATOR): CMV DNA +, 5k international units/ml, patient [...] (01/11/2022): Added automatically from request for surgery [id number] Overweight (BMI 25.0-29.9) 10/18/2020 0 02/25/2023 Nausea and vomiting 08/21/2018 08/02/19 24 Overview (08/21/2018): Added automatically from request for surgery [id number] Diarrhea 04/23/2018 04/22/2023 Encounters Date Type Department Care Team Description 04/22/2025 Home Infusion [facility] [address] [place] [address] Edgardo Denney, [facility] 04/22/2025 Home Infusion [facility] [address] [place] [address] Ghada Urbina, HERMANN 04/21/2025 3:40 PM CDT Office Visit [facility] Medicine Infectious Diseases [address] [place] [phone] Lizeth Salazar MD Cytomegalovirus (CMV) viremia (HCC) (Primary Dx); Immunocompromised state due to drug therapy 04/21/2025 11:00 AM CDT Telemedicine [facility] Gastroenterology [address] [facility] 2nd Floor [address] [place] [address] 04/20/2025 2:16 PM CDT - 04/20/2025 11:59 PM CDT Hospital Encounter [facility] [address] [place] [address] Discharge Disposition: Discharge to home or self care 04/20/2025 9:00 AM CDT Home Care Visit [facility] [address] [place] [address] Zackery Pickens, RN HI ROUTINE VISIT 04/16/2025 Home Infusion [facility] [address] [place] [address] Clyde Mendoza CPhT 04/15/2025 Orders Only [facility] Infectious Diseases [address] [place] [address] [place] [phone] Sara Shannon Cytomegalovirus (CMV) viremia (HCC) (Primary Dx) 04/14/2025 Telephone [facility] Infectious Diseases [address] [place] [phone] Susi Tinsley, ELIDA 04/13/2025 2:58 PM CDT - 04/13/2025 11:59 PM CDT Hospital Encounter [facility] [address] [place] [address] Discharge Disposition: Discharge to home or self care 04/13/2025 10:30 AM CDT Home Care Visit [facility] [address] [place] [address] Zackery Pickens, RN HI ROUTINE VISIT 04/13/2025 10:00 AM CDT Telemedicine [facility] Gastroenterology [address] [facility] Medical Office Building [address] [place] [phone] Beata Ambrosio MD Crohn's disease of small and large intestines with complication (CMS/HCC) (HCC) (Primary Dx) 04/13/2025 Documentation [facility] Gastroenterology [facility] 12th [place] [address] [place] [address] Isela Bray, JOSÉ Treatment Plan Update (04/13/2025 rov) 04/10/2025 Home Infusion [facility] [address] [place] [address] Michelle Valle 04/09/2025 Telephone [facility] [address] [facility] Office Building 2 [address] [place] [address] Cam Jara MD 04/07/2025 Home Infusion [facility] [address] [place] [address] Kenroy Hicks, [facility] 04/06/2025 12:25 PM CDT - 04/06/2025 11:59 PM CDT Hospital Encounter [address] [address] Discharge Disposition: Discharge to home or self care 04/06/2025 9:00 AM CDT Home Care Visit [facility] [address] [place] [address] Zackery Pickens RN AL ROUTINE VISIT 03/30/2025 1:20 PM CDT - 03/30/2025 11:59 PM CDT Hospital Encounter [address] [address] Discharge Disposition: Discharge to home or self care 03/30/2025 9:00 AM CDT Home Care Visit [facility] [address] [place] [address] Zackery Pickens RN HI ROUTINE VISIT 03/26/2025 Home Infusion [facility] [address] [place] [address] Edgardo Denney, [facility] 03/24/2025 2:25 PM CDT - 03/24/2025 11:59 PM CDT Hospital Encounter [facility] [address] [place] [address] Discharge Disposition: Discharge to home or self care 03/24/2025 12:00 PM CDT Home Care Visit [facility] [address] [place] [address] Zackery Pickens, RN HI ROUTINE VISIT 03/20/2025 Telephone [facility] Gastroenterology [address] [facility] 12th [place] [address] [place] [address] Rocio Costa Medical Question/Miscellaneou s 03/17/2025 Telephone [facility] Medicine Infectious Diseases [address] [facility] [address] [place] [phone] Matthieu Jenkinsyamileth Lowe 03/17/2025 Home Infusion [facility] [address] [place] [address] Andreia Franco RPh 03/16/2025 2:45 PM CDT Office Visit [facility] Surgery [facility] Floor 5 [place] [phone] Luis Miguel Medina MD Crohn's disease of small and large intestines with complication (HCC) (Primary Dx); On total parenteral nutrition (TPN); Postop check 03/16/2025 12:42 PM CDT - 03/16/2025 11:59 PM CDT Hospital Encounter [facility] [address] [place] [address] Discharge Disposition: Discharge to home or self care 03/16/2025 10:30 AM CDT Home Care Visit [facility] [address] [place] [address] Zackery Pickens RN AL ROUTINE VISIT 03/13/2025 Home Infusion [facility] [address] [place] [address] Clyde Mendoza CPhT High output ileostomy (HCC) 03/10/2025 Telephone [facility] Gastroenterology [address] [facility] [place] [address] [place] [address] Rocio Costa Med Management (imodium) 03/10/2025 Orders Only [facility] Gastroenterology [address] [facility] 12th [place] [address] [place] [address] Beata Ambrosio MD 03/09/2025 1:59 PM CDT - 03/09/2025 11:59 PM CDT Hospital Encounter [facility] [address] [place] [address] Discharge Disposition: Discharge to home or self care 03/09/2025 10:30 AM CDT Home Care Visit [facility] [address] [place] [address] Zackery Pickens RN AL ROUTINE VISIT 03/09/2025 9:00 AM CDT Telemedicine [facility] Gastroenterology [address] [facility] Medical Office Building [address] [place] [phone] Beata Ambrosio MD Crohn's disease of small and large intestines with complication (CMS/HCC) (HCC) (Primary Dx); Severe malnutrition; Iron deficiency anemia due to chronic blood loss; High risk medications (not anticoagulants) long-term use 03/09/2025 Home Infusion [facility]fusion Therapy [address] [place] [address] Clyde Mendoza CPhT 03/09/2025 Documentation [facility] Gastroenterology [address] [facility] 12th [place] [address] [place] [phone] Isela Bray RN Treatment Plan Update (03/09/2025) 03/06/2025 1:40 PM CDT Office Visit [facility] [address] [facility] 13th [place] [address] [place] [phone] Cam Jara MD Other osteoporosis without current pathological fracture (Primary Dx); CKD stage 3b, GFR 30-44 ml/min ([facility]); Chronic kidney disease-mineral and bone disorder (CKD-MBD) 03/03/2025 Telephone [facility] Surgery [address] [place] [address] Medical Office Building [address] [place] [phone] Ghada Arita RN 03/02/2025 2:19 PM CDT - 03/02/2025 11:59 PM CDT Hospital Encounter [facility] [place] [address] Discharge Disposition: Discharge to home or self care 03/02/2025 12:00 PM CDT Home Care Visit [facility] [address] [place] [address] Zackery Pickens, JOSÉ AL ROUTINE VISIT 03/02/2025 Telephone [facility] Gastroenterology [address] [facility] 12th [place] [address] [place] [address] Rocio Costa Follow-up; Medication Request (cholestyramine) 02/24/2025 Home Infusion [facility] [address] [place] [address] Kenroy Hicks, jen 02/24/2025 Telephone [facility] Surgery [address] [facility] Floor 5 [place] [address] Kurt ZahraaADOLFO rasmussen 02/24/2025 Telephone [facility] [address] [facility] 13th [place] [address] [place] [address] Cam Jara MD 02/23/2025 2:16 PM CDT - 02/23/2025 11:59 PM CDT Hospital Encounter [facility] [address] [place] [address] Discharge Disposition: Discharge to home or self care 02/23/2025 10:30 AM CDT Home Care Visit [facility] [address] [place] [address] Zackery Pickens RN AL ROUTINE VISIT 02/23/2025 Home Infusion [facility] [address] [place] [address] Clyde Mendoza CPhT 02/19/2025 10:30 AM CDT Home Care Visit [facility] [address] [place] [address] Evette Simon do, RN HI RESUME VISIT 02/13/2025 Results Follow-Up [facility] Surgery [address] [facility] Floor 5 [place] [address] Luis Miguel Medina MD Surgical pathology 02/10/2025 9:45 AM CDT - 02/10/2025 2:15 PM CDT Surgery [facility] Operating Room [address] [place] [address] Luis Miguel Medina MD PRIMARY REPAIR PARASTOMAL HERNIA 02/10/2025 9:36 AM CDT Anesthesia Event [facility] Operating Room [address] [place] [address] Emmie Villalobos DO McNamara, Amberlyn, NP 02/10/2025 7:42 AM CDT - 02/18/2025 2:10 PM CDT Hospital Encounter [facility] 1 [place] [address] Luis Miguel Medina MD Acute postoperative abdominal pain [G89.18, R10.9] (Primary Dx); Ileostomy in place (HCC) Discharge Disposition: Discharge to home, home health skilled care 02/10/2025 Home Infusion [facility] [address] [place] [address] Kenroy Hicks [facility] High output ileostomy (HCC); Crohn's disease of small and large intestines with complication (HCC) 02/09/2025 3:01 PM CDT - 02/09/2025 11:59 PM CDT Hospital Encounter [facility] [address] [place] [address] Discharge Disposition: Discharge to home or self care 02/09/2025 10:15 AM CDT Home Care Visit [facility] [address] [place] [address] Zackery Pickens, JOSÉ AL ROUTINE VISIT 02/09/2025 Telephone [facility] Surgery [address] [facility] Floor 5 [place] [address] Zahraa Hicks RMA Surgery Confirmation 02/07/2025 Home Infusion [facility] [address] [place] [address] Nelli Jamison [facility] 02/03/2025 Telephone [facility] Gastro[facility] 12th [place] [address] [place] [address] Rocio Costa Surgical Clearance (Rinvoq) 02/02/2025 2:52 PM CDT - 02/02/2025 11:59 PM CDT Hospital Encounter [facility] [address] [place] [address] Discharge Disposition: Discharge to home or self care 02/02/2025 9:30 AM CDT Home Care Visit [facility] [address] [place] [address] Zackery Pickens RN AL ROUTINE VISIT 01/29/2025 2:00 PM CDT Pre-Admission Testing [facility] Pre[facility] [address] [place] [address] Preoperative testing (Primary Dx) 01/29/2025 Home Infusion [facility] [address] [place] [address] WolfeMilagros High output ileostomy (HCC) (Primary Dx); Crohn's disease of small and large intestines with complication (HCC) 01/28/2025 Home Infusion [facility] [address] [place] [address] Kenroy Hicks RPh 01/26/2025 12:45 PM CDT Office Visit [facility] Medicine Surgery [facility] [address] [place] [address] Luis Miguel Medina MD Crohn's disease of small and large intestines with complication (HCC) (Primary Dx); Ileostomy in place (HCC); On total parenteral nutrition (TPN); Other pancytopenia (HCC) 01/26/2025 11:52 AM CDT - 01/26/2025 11:59 PM CDT Hospital Encounter [facility] [address] [place] [id number] Discharge Disposition: Discharge to home or self care 01/26/2025 10:15 AM CDT Home Care Visit [facility] [address] [place] [address] Zackery Pickens RN AL ROUTINE VISIT 01/22/2025 Documentation [facility] Medicine Gastroenterology [address] [facility] 12th [place] [address] [place] [address] Gris Mccain MD abnormal laboratory results 01/22/2025 Results Follow-Up [facility] Medicine Gastroenterology [address] [facility] 12th [place] [address] [place] [address] Gris Mccain MD IR Exchange PICC Line 01/22/2025 Results Follow-Up [facility] Medicine Gastroenterology [address] [facility] 12th [place] [address] [place] [address] Gris Mccain MD Comprehensive metabolic panel, without glucose (Outreach), Glucose, random (Outreach), CBC with auto differential, Additional followed-up results: 18 from Last 3 Months Immunizations Immunization Administration [...] or isolation Patient unable to respond 11/06/2024 [facility] Utilities Answer Date Recorded In the [...] often do you attend chur ch or alevism services? Never 10/02/2023 Do you belong to [...] on file Legal Sex Female 12:20 AM LOCAL GOVERNMENT LEGISLATOR Gender Identity Female 04/17/2021 10:27 AM CDT Sexual Orientation Straight 04/17/2021 10 :27 AM CDT Obstetrics History Last Filed Vital Signs Vital Sign Reading Time Taken Comments Blood Pressure 169/71 04/21/2025 3:40 PM CDT Pulse 91 04/21/2025 3:40 PM CDT Temperature 36.8 C (98.3 F) 04/21/2025 3:40 PM CDT Respiratory Rate 16 04/20/2025 1:14 PM CDT Oxygen Saturation 98% 04/21/2025 3:40 PM CDT Inhaled Oxygen Concentration - - Weight 53.5 kg (117 lb 14.4 oz) 04/21/2025 3:40 PM CDT Height 152.4 cm (5') 04/21/2025 3:40 PM CDT Body Mass Index 23.03 04/21/2025 3:40 PM CDT Plan of Treatment Health Maintenance Due Date Last Done Comments Breast Cancer Screening-Mammogram 1960 Zoster Vaccine (2 of 2) 04/09/2019 02/12/2019 Well Visit 65+ 2023 Depression Screening 08/15/2024 08/15/2023 Influenza Vaccine (#1) 2025 , 05/13/2023, 06/12/2022, Additional history exists Pneumococcal vaccine [...] history exists Medical Devices Implanted Type Area Fiscal Agent Device Identifier Shelf Expiration Date Model / Serial / Lot Picc Line Implanted:Qty: 1 Other - see comments Right: Arm Procedures Procedure Name Priority Date/Time Associated Diagnosis Comments EGFR STAT 04/20/2025 1:40 PM CDT DIFFERENTIAL AUTO STAT 04/20/2025 1:4 0 PM CDT PHOSPHORUS STAT 04/20/2025 1:40 PM CDT MAGNESIUM STAT 04/20/2025 1:40 PM CDT CBC WITH AUTO DIFFERENTIAL STAT 04/20/2025 1:40 PM CDT COMPREHENSIVE METABOLIC PANEL STAT 04/20/2025 1:40 PM CDT CYTOMEGALOVIRUS (CMV) DNA, QUANT GEN LAB STAT 04/20/2025 1:40 PM CDT EGFR Routine 04/13/2025 1:50 PM CDT PHOSPHORUS [...] 03/09/2025 1:20 PM CDT BLOOD MISC TO SABINAL Routine 03/02/2025 1: 30 PM CDT EGFR [...] 11:09 AM CDT Ileostomy in place (HCC) MT AN PROCEDURE PLACEHOLDER Routine 02/10/2025 10:13 AM CDT MT AN ELECTIVE ENDOTRACHEAL AIRWAY Routine 02/10/2025 10:13 AM CDT CLOSURE ILEOSTOMY 02/10/2025 9:4 0 AM CDT Ileostomy in place (HCC) Case Notes 02/09- move case up due to a case being rescheduled per Zahraa via phone call (EF) 01/26- office is adding procedure to case per Zahraa via case msg (EF) 01/22- moved case up to follow due to cancellation per Zharaa via case msg (EF) 01/07@01/13- Please deirdre this patient as not ready until further notice per Zahraa via case msg.[email or web address]- please deirdre this patient as not ready because she has to get more testing done first per office via case msg.EF RESECTION - ILEOCOLIC 02/10/2025 9:40 AM CDT Ileostomy in place (HCC) Case Notes 02/09- move case up due [...] 02/10/2025 9:40 AM CDT Ileostomy in place (HCC) Case Notes 02/09- move case up due [...] GEN LAB STAT 01/26/2025 10:30 AM CDT COLONOSCOPY 12/04/2024 12:25 PM CDT DEXA TBS AXIAL SKELETON BONE DENSITY 1 OR MORE SITES Schedule Routine, Read Routine (OP Routine) 10/17/2024 3:18 PM CDT Osteopenia of necks of both femurs HEPATITIS C ANTIBODY Routine 02/23/2023 11:47 AM CDT NAFLD (nonalcoholic fatty liver disease) Elevated liver enzymes from Last 3 Months or Most Recently Relevant to Health Maintenance Results * (ABNORMAL) Cytomegalovirus (CMV) DNA PCR, quantitative Blood (04/20/2025 1:40 PM CDT) [facility] CMV DNA Detected( A) [facility] Comment: Interpretive Data: The quantifiable range of this assay is 34 IUnits/mL to 10,000,000 IUnits/mL (1.53 log IUnits/mL to 7.0 log IUnits/mL). Testing was performed by the [employer] CMV Test ([employer] Testing performed at [facility]. Current interpretive data was last revised on 2021. Testing performed by: [facility], [address] [place]., [address] CMV DNA IU/mL <34 IUnits/mL MANDY HE Comment:Testing performed by : [facility], [address] [place]., [address] CMV DNA log IU/mL <1.53 log IUnits/mL MANDY HE Comment:Testing performed by : [facility], [address] [place]., [address] Blood 04/20/2025 1:40 PM CDT 04/20/2025 5:59 PM CDT us Notinfile Unknown LAB MICROBIOLOGY - GENERAL ORD ERABLES Final Result MANDY HE [address] [facility] Department [place] [address] [facility] * eGFR (04/20/2025 1:40 PM CDT) [facility] eGFR 78 >=60 mL/min/1. 73 m2 Comment: Interpretive Data [...] interpretive data was last reviewed 2021. Blood 04/20/2025 1:40 PM CDT 04/20/2025 2:29 PM CDT us Notinfile Unknown LAB BLOOD ORDERABLES Final Res ult [facility] [address] [facility] Department [place] [address] * Differential, auto (04/20/2025 1:40 PM CDT) Neutrophil abs 2.43 1.50 - 6.50 K/cumm Imm gran abs 0.01 0.00 - 0.10 K/cumm [facility] Lymphocyte abs 2.13 0.80 - 3.30 K/cumm [facility] Monocyte abs 0.35 0.20 - 0.80 K/cumm [facility] Eosinophil abs 0.05 0.00 - 0.50 K/cumm [facility] Basophil abs 0.03 0.00 - 0.10 K/cumm [facility] Neutrophil pct 48.6 % [facility] Comment: Interpretive Data Percent cell count reference ranges are not reported, since discordance with absolute values may lead to misinterpretation of CBC data. Current Interpretive Data was last revised on 2017. Imm gran pct 0.2 % [facility] Comment: Interpretive Data Percent cell count reference ranges are not reported, since discordance with absolute values may lead to misinterpretation of CBC data. Current Interpretive Data was last revised on 2017. Lymphocyte pct 42.6 % [facility] Comment: Interpretive Data Percent cell count reference ranges are not reported, since discordance with absolute values may lead to misinterpretation of CBC data. Current Interpretive Data was last revised on 2017. Monocyte pct 7.0 % [facility] Comment: Interpretive Data Percent cell count reference ranges are not reported, since discordance with absolute values may lead to misinterpretation of CBC data. Current Interpretive Data was last revised on 2017. Eosinophil pct 1.0 % [facility] Comment: Interpretive Data Percent cell count reference ranges are not reported, since discordance with absolute values may lead to misinterpretation of CBC data. Current Interpretive Data was last revised on 2017. Basophil pct 0.6 % [facility] Comment: Interpretive Data Percent cell count reference ranges are not reported, since discordance with absolute values may lead to misinterpretation of CBC data. Current Interpretive Data was last revised on 2017. Blood 04/20/2025 1:40 PM CDT 04/20/2025 2:29 PM CDT us Notinfile Unknown LAB BLOOD ORDERABLES Final Res ult [place] [id number] [facility] Department [place] [address] * (ABNORMAL) CBC with auto differential (04/20/2025 1:40 PM CDT) WBC 5.00 3.80 - 9.90 K/cumm Hgb 8.6(L) 11.9 - 15.5 g/dL [facility] Hct 27.3(L) 35.6 - 45.5 % [facility] Plt 192 150 - 400 K/cumm [facility] MPV 11.0 9.1 - 12.3 fL [facility] RBC 3.15(L) 3.90 - 5.20 M/cumm [facility] MCV 86.7 81.3 - 96.4 fL [facility] MCH 27.3 27.1 - 33.3 pg [facility] MCHC 31.5(L) 32.3 - 35.7 g/dL [facility] RDW CV 14.0 11.1 - 14.9 % [facility] RDW SD 44.4 35.7 - 48.1 fL [facility] NRBC abs 0.00 0.00 - 0.01 K/cumm [facility] Blood 04/20/2025 1:40 PM CDT 04/20/2025 2:29 PM CDT Notinfile Unknown LAB BLOOD ORDERABLES Final Res ult Performing Organization Address City/[facility]/ZIP Co de Phone Number [address] [place] [employer] [place] [address] * Phosphorus (04/20/2025 1:40 PM CDT) [facility] Phosphorus, pl 4.1 2.3 - 4.5 mg/dL Blood 04/20/2025 1:40 PM CDT 04/20/2025 2:29 PM CDT us Notinfile Unknown LAB BLOOD ORDERABLES Final Res ult Performing Organization Address [facility] Co de Phone Number [address] [place] [employer] [place] [address] * Magnesium (04/20/2025 1:40 PM CDT) [facility] Magnesium 2.2 1.4 - 2.5 mg/dL Blood 04/20/2025 1:40 PM CDT 04/20/2025 2:29 PM CDT Notinfile Unknown LAB BLOOD ORDERABLES Final Res ult Performing Organization Address [facility] Co de Phone Number [address] [place] [employer] [place] [address] * (ABNORMAL) Comprehensive metabolic panel (04/20/2025 1:40 PM CDT) [facility] Sodium 135 135 - 145 mmol/L Potassium, pl 4.0 3.3 - 4.9 mmol/L [facility] Chloride 105 97 - 110 mmol/L [facility] CO2 18(L) 22 - 32 mmol/L [facility] Anion gap 12 2 - 15 mmol/L [facility] BUN 17 6 - 25 mg/dL [facility] Creatinine 0.83 0.60 - 1.10 mg/dL [facility] Glucose 112 70 - 199 mg/dL [facility] Comment: Interpretive Data Fasting glucose >/= 126 [...] 2022. Calcium 9.0 8.5 - 10.3 mg/dL [facility] Bilirubin, total 0.4 0.1 - 1.2 mg/dL [facility] Protein, pl 7.7 6.5 - 8.5 g/dL [facility] Albumin 4.2 3.5 - 5.0 g/dL [facility] Alk phos 100 40 - 130 Units/L [facility] ALT 21 7 - 45 Units/L [facility] AST 29 10 - 45 Units/L [facility] Blood 04/20/2025 1:40 PM CDT 04/20/2025 2:29 PM CDT us Notinfile Unknown LAB BLOOD ORDERABLES Final Res ult [facility] [address] [facility] Department [place] [address] * Glucose, random (Outreach) (04/13/2025 1:50 PM [...] Final Res ult Performing Organization Address [facility] Co de Phone Number MANDY [address] [email or web address] [address] * eGFR (04/13/2025 1:50 PM CDT) eGFR [...] ORDERABLES Final Res ult Performing Organization Address City/[facility]/ZIP Co de Phone Number MANDY [facility] [place] [employer] [place] [address] * (ABNORMAL) Comprehensive metabolic panel, without glucose (Outreach) (04/13/2025 1:50 PM CDT) [facility] Sodium 135 135 - 145 mmol/L Potassium, pl 3.6 3.3 - 4.9 mmol/L [facility] Chloride 105 97 - 110 mmol/L [facility] CO2 17(L) 22 - 32 mmol/L [facility] Anion gap 13 2 - 15 mmol/L [facility] BUN 18 6 - 25 mg/dL [facility] Creatinine 0.85 0.60 - 1.10 mg/dL [facility] Calcium 9.1 8.5 - 10.3 mg/dL [facility] Protein, pl 7.7 6.5 - 8.5 g/dL [facility] Albumin 4.3 3.5 - 5.0 g/dL [facility] Bilirubin, total 0.4 0.1 - 1.2 mg/dL [facility] Alk phos 99 40 - 130 Units/L [facility] AST 35 10 - 45 Units/L [facility] ALT 28 7 - 45 Units/L [facility] Blood 04/13/2025 1:50 PM CDT 04/13/2025 3:50 PM CDT us Notinfile Unknown LAB BLOOD ORDERABLES Final Res ult Performing Organization Address City/[facility]/ZIP Co de Phone Number [address] [place] [employer] [place] [address] * Phosphorus (04/13/2025 1:50 PM CDT) [facility] Phosphorus, pl 4.0 2.3 - 4.5 mg/dL Blood 04/13/2025 1:50 PM CDT 04/13/2025 3:50 PM CDT us Notinfile Unknown LAB BLOOD ORDERABLES Final Res ult Performing Organization Address City/[facility]/ZIP Co de Phone Number [address] [place] [address] * Magnesium (04/13/2025 1:50 PM CDT) Magnesium 2.0 1.4 - 2.5 mg/dL Blood 04/13/2025 1:50 PM CDT 04/13/2025 3:50 PM CDT us Notinfile Unknown LAB BLOOD ORDERABLES Final Res ult MANDY [facility] Department [place] [address] * Glucose, random (Outreach) (04/06/2025 12:25 PM CDT) Pathologist [facility] Glucose 99 70 - 199 mg/dL Comment: [...] LAB BLOOD ORDERABLES Final Res ult MANDY [facility] Department [place] [address] * eGFR (04/06/2025 12:25 PM CDT) Pathologist [facility] eGFR 67 >=60 mL/min/1. 73 m2 Comment: [...] Unknown LAB BLOOD ORDERABLES Final Res ult [facility] Department [place] [address] * (ABNORMAL) Comprehensive metabolic panel, without glucose (Outreach) (04/06/2025 12:25 PM CDT) Sodium 135 135 - 145 mmol/L Potassium, pl 3.7 3.3 - 4.9 mmol/L [facility] Chloride 104 97 - 110 mmol/L [facility] CO2 20(L) 22 - 32 mmol/L [facility] Anion gap 11 2 - 15 mmol/L [facility] BUN 14 6 - 25 mg/dL [facility] Creatinine 0.94 0.60 - 1.10 mg/dL [facility] Calcium 8.6 8.5 - 10.3 mg/dL [facility] Protein, pl 7.5 6.5 - 8.5 g/dL [facility] Albumin 4.1 3.5 - 5.0 g/dL [facility] Bilirubin, total 0.4 0.1 - 1.2 mg/dL [facility] Alk phos 94 40 - 130 Units/L [facility] AST 46(H) 10 - 45 Units/L [facility] ALT 33 7 - 45 Units/L [facility] Blood 04/06/2025 12:2 5 PM CDT 04/06/2025 3:29 PM CDT us Notinfile Unknown LAB BLOOD ORDERABLES Final Res ult MANDY [facility] Department [place] [address] * (ABNORMAL) Urinalysis reflex to microscopic and culture Urine (04/06/2025 12:25 PM CDT) Color, ur Straw Yellow Clarity, ur Clear Clear [facility] Specific gravity, ur 1.007 1.003 - 1.030 [facility] pH, urine 6.0 [facility] Comment: Interpretive Data U rine pH is affected by diet, medications, systemic acid-base disturbances, and renal tubular function. pH may affect urinary stone formation. For example, urine pH below 6.0 may help reduce the tendency for calcium phosphate stones and pH greater than 6.0 may reduce the tendency for uric acid stone formation. Source: [facility] Current Interpretive Data was last revised on 2017 Protein, ur ql Negative Negative [facility] Glucose, ur ql Negative Negative [facility] Ketones, ur Negative Negative [facility] Bilirubin, ur Negative Negative [facility] Blood, ur Negative Negative [facility] Urobilinogen, ur <2.0 <2.0 mg/dL [facility] Nitrite, ur Negative Negative [facility] Leukocyte esterase, ur 2+(A) Negative [facility] UA reflex comment Reflex to microscopic UA will be performed. [facility] Urine 04/06/2025 12:2 5 PM CDT 04/06/2025 3:29 PM CDT us Notinfile Unknown LAB MICROBIOLOGY - GENERAL ORD ERABLES Final Result Performing Organization Address City/[facility]/ZIP Co de Phone Number MANDY [facility] Department [place] [address] * Albumin Creatinine Ratio, Urine (04/06/2025 12:25 PM CDT) [facility] Albumin Ur <12.0 mg/L Comment: Interpretive Data No reference range established. Current interpretive data was last revised 2018. Creatinine Ur 59.0 mg/dL [facility] Comment: Interpretive Data No reference range established. Current interpretive data was last revised 2018. Albumin Creatinine Ratio, Ur <20 1 - 29 mg/g [facility] Urine 04/06/2025 12:2 5 PM CDT 04/06/2025 3:31 PM CDT us Notinfile Unknown LAB URINE ORDERABLES Final Res ult Performing Organization Address [facility] de Phone Number [facility] Department [place] [address] * (ABNORMAL) Urinalysis, microscopic only (04/06/2025 12:25 PM CDT) [facility] WBC, ur 0-5 0 - 5 /HPF RBC, ur 0-2 0 - 2 /HPF [facility] Epithelial cells, squamous, ur 6-10(A) 0 - 5 /HPF [facility] Comment:Suggestive of contam ination. Consider recollection by clean catch. Epithelial cells, renal, ur 1-5(A) 0 - 0 /HPF [facility] Epithelial cells, transitional, ur 1-5 0 - 0 /HPF [facility] Bacteria, ur Trace(A) [facility] Culture Reflex Comment Reflex conditions for urine culture (WBC >10) not met. [facility] Urine 04/06/2025 12:2 5 PM CDT 04/06/2025 3:29 PM CDT us Notinfile Unknown LAB URINE ORDERABLES Final Res ult Performing Organization Address [facility] de Phone Number [facility] [place] [address] * Phosphorus (04/06/2025 12:25 PM CDT) Phosphorus, pl 4.1 2.3 - 4.5 mg/dL Blood 04/06/2025 12:2 5 PM CDT 04/06/2025 3:29 PM CDT us Notinfile Unknown LAB BLOOD ORDERABLES Final Res ult Performing Organization Address [facility] de Phone Number [facility] [place] [address] * Magnesium (04/06/2025 12:25 PM CDT) Pathologist [facility] Magnesium 1.8 1.4 - 2.5 mg/dL Blood 04/06/2025 12:2 5 PM CDT 04/06/2025 3:29 PM CDT us Notinfile Unknown LAB BLOOD ORDERABLES Final Res ult Performing Organization Address [facility] de Phone Number [facility] [place] [address] * Glucose, random (Outreach) (03/30/2025 1:20 PM CDT) [facility] Glucose 119 70 - 199 mg/dL Comment: [...] Final Res ult Performing Organization Address [facility]/ZIP Co de Phone Number MANDY RIVAS [facility] [place] [address] * eGFR (03/30/2025 1:20 PM CDT) eGFR [...] Final Res ult Performing Organization Address [facility] Co de Phone Number MANDY RIVAS [facility] Department [place] [address] * (ABNORMAL) Comprehensive metabolic panel, without glucose (Outreach) (03/30/2025 1:20 PM CDT) Sodium 138 135 - 145 mmol/L Potassium, pl 3.6 3.3 - 4.9 mmol/L [facility] Chloride 108 97 - 110 mmol/L [facility] CO2 20(L) 22 - 32 mmol/L [facility] Anion gap 10 2 - 15 mmol/L [facility] BUN 20 6 - 25 mg/dL [facility] Creatinine 0.91 0.60 - 1.10 mg/dL [facility] Calcium 8.5 8.5 - 10.3 mg/dL [facility] Protein, pl 7.4 6.5 - 8.5 g/dL [facility] Albumin 4.1 3.5 - 5.0 g/dL [facility] Bilirubin, total 0.4 0.1 - 1.2 mg/dL [facility] Alk phos 88 40 - 130 Units/L [facility] AST 32 10 - 45 Units/L [facility] ALT 36 7 - 45 Units/L [facility] Blood 03/30/2025 1:20 PM CDT 03/30/2025 2:44 PM CDT us Notinfile Unknown LAB BLOOD ORDERABLES Final Res ult Performing Organization Address [facility] Co de Phone Number [facility] Department [place] [address] * Vitamin D 25 hydroxy (03/30/2025 1:20 PM CDT) Vitamin D 25-OH 40 30 - 80 ng/mL Blood 03/30/2025 1:20 PM CDT 03/30/2025 2:44 PM CDT us Notinfile Unknown LAB BLOOD ORDERABLES Final Res ult Performing Organization Address [facility] Co de Phone Number [facility] Department [place] [address] * Phosphorus (03/30/2025 1:20 PM CDT) Phosphorus, pl 4.2 2.3 - 4.5 mg/dL Blood 03/30/2025 1:20 PM CDT 03/30/2025 2:44 PM CDT us Notinfile Unknown LAB BLOOD ORDERABLES Final Res ult Performing Organization Address [facility] Co de Phone Number CERNER [facility] [place] [address] * Magnesium (03/30/2025 1:20 PM CDT) Magnesium 1.8 1.4 - 2.5 mg/dL Blood 03/30/2025 1:20 PM CDT 03/30/2025 2:44 PM CDT us Notinfile Unknown LAB BLOOD ORDERABLES Final Res [place] [address] * eGFR (03/24/2025 1:30 PM CDT) eGFR [...] BLOOD ORDERABLES Final Res ult MANDY [address] Department [place] [address] * Differential, auto (03/24/2025 1:30 PM CDT) Pathologist [facility] Neutrophil abs 4.57 1.50 - 6.50 K/cumm Imm gran abs 0.04 0.00 - 0.10 K/cumm [facility] Lymphocyte abs 1.87 0.80 - 3.30 K/cumm [facility] Monocyte abs 0.56 0.20 - 0.80 K/cumm [facility] Eosinophil abs 0.03 0.00 - 0.50 K/cumm [facility] Basophil abs 0.03 0.00 - 0.10 K/cumm [facility] Neutrophil pct 64.4 % [facility] Comment: Interpretive Data Percent cell count reference ranges are not reported, since discordance with absolute values may lead to misinterpretation of CBC data. Current Interpretive Data was last revised on 2017. Imm gran pct 0.6 % [facility] Comment: Interpretive Data Percent cell count reference ranges are not reported, since discordance with absolute values may lead to misinterpretation of CBC data. Current Interpretive Data was last revised on 2017. Lymphocyte pct 26.3 % [facility] Comment: Interpretive Data Percent cell count reference ranges are not reported, since discordance with absolute values may lead to misinterpretation of CBC data. Current Interpretive Data was last revised on 2017. Monocyte pct 7.9 % [facility] Comment: Interpretive Data Percent cell count reference ranges are not reported, since discordance with absolute values may lead to misinterpretation of CBC data. Current Interpretive Data was last revised on 2017. Eosinophil pct 0.4 % [facility] Comment: Interpretive Data Percent cell count reference ranges are not reported, since discordance with absolute values may lead to misinterpretation of CBC data. Current Interpretive Data was last revised on 2017. Basophil pct 0.4 % [facility] Comment: Interpretive Data Percent cell count reference ranges are not reported, since discordance with absolute values may lead to misinterpretation of CBC data. Current Interpretive Data was last revised on 2017. Blood 03/24/2025 1:30 PM CDT 03/24/2025 2:33 PM CDT us Notinfile Unknown LAB BLOOD ORDERABLES Final Res ult Performing Organization Address [facility] Co de Phone Number MANDY [address] [address] * (ABNORMAL) CBC with auto differential (03/24/2025 1:30 PM CDT) WBC 7.10 3.80 - 9.90 K/cumm Hgb 9.2(L) 11.9 - 15.5 g/dL [facility] Hct 29.0(L) 35.6 - 45.5 % [facility] Plt 221 150 - 400 K/cumm [facility] MPV 10.0 9.1 - 12.3 fL [facility] RBC 3.31(L) 3.90 - 5.20 M/cumm [facility] MCV 87.6 81.3 - 96.4 fL [facility] MCH 27.8 27.1 - 33.3 pg [facility] MCHC 31.7(L) 32.3 - 35.7 g/dL [facility] RDW CV 13.6 11.1 - 14.9 % [facility] RDW SD 43.5 35.7 - 48.1 fL [facility] NRBC abs 0.00 0.00 - 0.01 K/cumm [facility] Blood 03/24/2025 1:30 PM CDT 03/24/2025 2:33 PM CDT us Notinfile Unknown LAB BLOOD ORDERABLES Final Res ult Performing Organization Address [facility]/ZIP Co de Phone Number MANDY [address] [address] * Phosphorus (03/24/2025 1:30 PM CDT) Phosphorus, pl 3.2 2.3 - 4.5 mg/dL Blood 03/24/2025 1:30 PM CDT 03/24/2025 2:33 PM CDT us Notinfile Unknown LAB BLOOD ORDERABLES Final Res ult Performing Organization Address [facility]/ZIP Co de Phone Number MANDY [facility] [place] [address] * (ABNORMAL) Magnesium (03/24/2025 1:30 PM CDT) Pathologist [facility] Magnesium 2.6(H) 1.4 - 2.5 mg/dL Blood 03/24/2025 1:30 PM CDT 03/24/2025 2:33 PM CDT us Notinfile Unknown LAB BLOOD ORDERABLES Final Res ult Performing Organization Address [facility] Co de Phone Number MANDY [address] [address] * (ABNORMAL) Comprehensive metabolic panel (03/24/2025 1:30 PM CDT) [facility] Sodium 136 135 - 145 mmol/L Potassium, pl 4.4 3.3 - 4.9 mmol/L [facility] Chloride 103 97 - 110 mmol/L [facility] CO2 20(L) 22 - 32 mmol/L [facility] Anion gap 13 2 - 15 mmol/L [facility] BUN 31(H) 6 - 25 mg/dL [facility] Creatinine 0.78 0.60 - 1.10 mg/dL [facility] Glucose 97 70 - 199 mg/dL [facility] Comment: Interpretive Data Fasting glucose >/= 126 [...] 2022. Calcium 9.4 8.5 - 10.3 mg/dL [facility] Bilirubin, total 0.3 0.1 - 1.2 mg/dL [facility] Protein, pl 8.0 6.5 - 8.5 g/dL [facility] Albumin 4.6 3.5 - 5.0 g/dL [facility] Alk phos 94 40 - 130 Units/L [facility] ALT 28 7 - 45 Units/L [facility] AST 30 10 - 45 Units/L [facility] Blood 03/24/2025 1:30 PM CDT 03/24/2025 2:33 PM CDT us Notinfile Unknown LAB BLOOD ORDERABLES Final Res ult Performing Organization Address [facility] Co de Phone Number MANDY [address] [email or web address] [address] * eGFR (03/16/2025 11:40 AM CDT) eGFR [...] Final Res ult Performing Organization Address [facility]/ZIP Co de Phone Number [address] [place] [employer] [place] [address] * Phosphorus (03/16/2025 11:40 AM CDT) Pathologist [facility] Phosphorus, pl 4.0 2.3 - 4.5 mg/dL Blood 03/16/2025 11:4 0 AM CDT 03/16/2025 12:47 PM CDT us Notinfile Unknown LAB BLOOD ORDERABLES Final Res ult Performing Organization Address [facility] Co de Phone Number [address] [place] [address] * Magnesium (03/16/2025 11:40 AM CDT) [facility] Magnesium 1.9 1.4 - 2.5 mg/dL Blood 03/16/2025 11:4 0 AM CDT 03/16/2025 12:47 PM CDT Notinfile Unknown LAB BLOOD ORDERABLES Final Res ult Performing Organization Address [facility] de Phone Number [address] [place] [employer] [place] [address] * (ABNORMAL) Comprehensive metabolic panel (03/16/2025 11:40 AM CDT) [facility] Sodium 136 135 - 145 mmol/L Potassium, pl 3.5 3.3 - 4.9 mmol/L [facility] Chloride 105 97 - 110 mmol/L [facility] CO2 19(L) 22 - 32 mmol/L [facility] Anion gap 12 2 - 15 mmol/L [facility] BUN 14 6 - 25 mg/dL [facility] Creatinine 0.82 0.60 - 1.10 mg/dL [facility] Glucose 112 70 - 199 mg/dL [facility] Comment: Interpretive Data Fasting glucose >/= 126 [...] 2022. Calcium 9.0 8.5 - 10.3 mg/dL [facility] Bilirubin, total 0.4 0.1 - 1.2 mg/dL [facility] Protein, pl 7.5 6.5 - 8.5 g/dL [facility] Albumin 4.4 3.5 - 5.0 g/dL [facility] Alk phos 93 40 - 130 Units/L [facility] ALT 16 7 - 45 Units/L [facility] AST 29 10 - 45 Units/L [facility] Blood 03/16/2025 11:4 0 AM CDT 03/16/2025 12:47 PM CDT us Notinfile Unknown LAB BLOOD ORDERABLES Final Res ult MANDY [address] [facility] Department [place] [address] * SCAN - LABS (03/13/2025 12:00 AM [...] Final Res ult Performing Organization Address [facility] Co de Phone Number [address] [address] * Phosphorus (03/09/2025 1:20 PM CDT) [facility] Phosphorus, pl 4.2 2.3 - 4.5 mg/dL Blood 03/09/2025 1:20 PM CDT 03/09/2025 2:01 PM CDT us Notinfile Unknown LAB BLOOD ORDERABLES Final Res ult Performing Organization Address [facility] de Phone Number [address] [address] * Magnesium (03/09/2025 1:20 PM CDT) [facility] Magnesium 2.0 1.4 - 2.5 mg/dL Blood 03/09/2025 1:20 PM CDT 03/09/2025 2:01 PM CDT Result [facility] Notinfile Unknown LAB BLOOD ORDERABLES Final Res ult Performing Organization Address [facility] de Phone Number [address] [address] * (ABNORMAL) Comprehensive metabolic panel (03/09/2025 1:20 PM CDT) [facility] Sodium 138 135 - 145 mmol/L Potassium, pl 3.5 3.3 - 4.9 mmol/L [facility] Chloride 109 97 - 110 mmol/L [facility] CO2 18(L) 22 - 32 mmol/L [facility] Anion gap 11 2 - 15 mmol/L [facility] BUN 8 6 - 25 mg/dL [facility] Creatinine 0.98 0.60 - 1.10 mg/dL [facility] Glucose 102 70 - 199 mg/dL [facility] Comment: Interpretive Data Fasting glucose >/= 126 [...] 2022. Calcium 8.8 8.5 - 10.3 mg/dL [facility] Bilirubin, total 0.4 0.1 - 1.2 mg/dL [facility] Protein, pl 7.2 6.5 - 8.5 g/dL [facility] Albumin 4.2 3.5 - 5.0 g/dL [facility] Alk phos 96 40 - 130 Units/L [facility] ALT 24 7 - 45 Units/L [facility] AST 37 10 - 45 Units/L [facility] Blood 03/09/2025 1:20 PM CDT 03/09/2025 2:01 PM CDT us Notinfile Unknown LAB BLOOD ORDERABLES Final Res ult [facility] [address] [facility] Department [place] [address] * BLOOD MISC TO SABINAL (03/02/2025 1:30 PM CDT) Test name, chem PINP,Procoll agen I Intact N-Terminal, Serum [facility] Misc See Footnote MANDY Comment: Test Result Flag Unit RefValue Procollagen I Intact N- 68 mcg/L Terminal, S REFERENCE VALUE Premenopausal: Postmenopausal: [id number] Test Performed by: [facility] [address] [place] [address] Regulatory Analyst: Jimena Catalan Ph.D.; CLIA# [id number] Blood 03/02/2025 1:30 PM CDT 03/02/2025 4:27 PM CDT us Luis Miguel Medina MD LAB BLOOD ORDERABLES Final R esult MANDY [address] Department [place] [address] [facility] * eGFR (03/02/2025 1:30 PM [...] BLOOD ORDERABLES Final Res ult MANDY [address] [facility] Department [place] [address] * Differential, auto (03/02/2025 1:30 PM CDT) Neutrophil abs 2.74 1.50 - 6.50 K/cumm Imm gran abs 0.02 0.00 - 0.10 K/cumm [facility] Lymphocyte abs 1.86 0.80 - 3.30 K/cumm [facility] Monocyte abs 0.25 0.20 - 0.80 K/cumm [facility] Eosinophil abs 0.13 0.00 - 0.50 K/cumm [facility] Basophil abs 0.02 0.00 - 0.10 K/cumm [facility] Neutrophil pct 54.5 % [facility] Comment: Interpretive Data Percent cell count reference ranges are not reported, since discordance with absolute values may lead to misinterpretation of CBC data. Current Interpretive Data was last revised on 2017. Imm gran pct 0.4 % [facility] Comment: Interpretive Data Percent cell count reference ranges are not reported, since discordance with absolute values may lead to misinterpretation of CBC data. Current Interpretive Data was last revised on 2017. Lymphocyte pct 37.1 % [facility] Comment: Interpretive Data Percent cell count reference ranges are not reported, since discordance with absolute values may lead to misinterpretation of CBC data. Current Interpretive Data was last revised on 2017. Monocyte pct 5.0 % [facility] Comment: Interpretive Data Percent cell count reference ranges are not reported, since discordance with absolute values may lead to misinterpretation of CBC data. Current Interpretive Data was last revised on 2017. Eosinophil pct 2.6 % [facility] Comment: Interpretive Data Percent cell count reference ranges are not reported, since discordance with absolute values may lead to misinterpretation of CBC data. Current Interpretive Data was last revised on 2017. Basophil pct 0.4 % [facility] Comment: Interpretive Data Percent cell count reference ranges are not reported, since discordance with absolute values may lead to misinterpretation of CBC data. Current Interpretive Data was last revised on 2017. Blood 03/02/2025 1:30 PM CDT 03/02/2025 3:10 PM CDT Notinfile Unknown LAB BLOOD ORDERABLES Final Res ult Performing Organization Address [facility] Co de Phone Number MANDY [address] [place] [employer] [place] [address] * (ABNORMAL) CBC with auto differential (03/02/2025 1:30 PM CDT) WBC 5.02 3.80 - 9.90 K/cumm Hgb 8.5(L) 11.9 - 15.5 g/dL [facility] Hct 26.1(L) 35.6 - 45.5 % [facility] Plt 188 150 - 400 K/cumm [facility] MPV 9.8 9.1 - 12.3 fL [facility] RBC 2.93(L) 3.90 - 5.20 M/cumm [facility] MCV 89.1 81.3 - 96.4 fL [facility] MCH 29.0 27.1 - 33.3 pg [facility] MCHC 32.6 32.3 - 35.7 g/dL [facility] RDW CV 14.1 11.1 - 14.9 % [facility] RDW SD 45.5 35.7 - 48.1 fL [facility] NRBC abs 0.00 0.00 - 0.01 K/cumm [facility] Blood 03/02/2025 1:30 PM CDT 03/02/2025 3:10 PM CDT Notinfile Unknown LAB BLOOD ORDERABLES Final Res ult Performing Organization Address [facility]/ZIP Co de Phone Number MANDY [address] [employer] [place] [address] * Alkaline phosphatase, bone specific (03/02/2025 1:30 PM CDT) Alk phos, bone 14 mcg/L [facility] Comment: REFERENCE VALUE <=14 (Premenopausal) <=22 (Postmenopausal) ADDITIONAL INFORMATION Liver-derived alkaline phosphatase (ALP) increases apparent measured bone alkaline phosphatase (BAP) in this assay by 2.5 mcg/L to 5.8 mcg/L for every 100 U/L of liver ALP. Accordingly, serum specimens with significant elevations of liver ALP activity may yield artificially elevated results in the BAP assay. Test Performed by: [address] [address] Regulatory Analyst: Jimena Catalan Ph.D.; CLIA# [id number] Blood 03/02/2025 1:30 PM CDT 03/02/2025 3:09 PM CDT Notinfile Unknown LAB BLOOD ORDERABLES Final Res ult Performing Organization Address [facility] Co de Phone Number MANDY [address] [employer] [place], [place] [id number] [facility] * Phosphorus (03/02/2025 1:30 PM CDT) Phosphorus, pl 3.7 2.3 - 4.5 mg/dL Blood 03/02/2025 1:30 PM CDT 03/02/2025 3:10 PM CDT [facility] LAB BLOOD ORDERABLES Final Res ult Performing Organization Address City/[facility]/ZIP Co de Phone Number MANDY [address] [email or web address] [place], [place] [id number] * Magnesium (03/02/2025 1:30 PM CDT) Magnesium 2.0 1.4 - 2.5 mg/dL Blood 03/02/2025 1:30 PM CDT 03/02/2025 3:10 PM CDT us Notinfile Unknown LAB BLOOD ORDERABLES Final Res ult MANDY [address] [facility] Department [place] [address] * (ABNORMAL) Comprehensive metabolic panel (03/02/2025 1:30 PM CDT) Sodium 137 135 - 145 mmol/L Potassium, pl 3.5 3.3 - 4.9 mmol/L [facility] Chloride 107 97 - 110 mmol/L [facility] CO2 18(L) 22 - 32 mmol/L [facility] Anion gap 12 2 - 15 mmol/L [facility] BUN 12 6 - 25 mg/dL [facility] Creatinine 0.86 0.60 - 1.10 mg/dL [facility] Glucose 97 70 - 199 mg/dL [facility] Comment: Interpretive Data Fasting glucose >/= 126 [...] 2022. Calcium 9.0 8.5 - 10.3 mg/dL [facility] Bilirubin, total 0.4 0.1 - 1.2 mg/dL [facility] Protein, pl 7.4 6.5 - 8.5 g/dL [facility] Albumin 4.2 3.5 - 5.0 g/dL [facility] Alk phos 100 40 - 130 Units/L [facility] ALT 21 7 - 45 Units/L [facility] AST 30 10 - 45 Units/L [facility] Blood 03/02/2025 1:30 PM CDT 03/02/2025 3:10 PM CDT us Notinfile Unknown LAB BLOOD ORDERABLES Final Res ult Performing Organization Address [facility]/ZIP Co de Phone Number MANDY [address] [address] * eGFR (02/23/2025 1:15 PM CDT) Pathologist [facility] eGFR 73 >=60 mL/min/1. 73 m2 Comment: [...] ORDERABLES Final Res ult Performing Organization Address City/[facility]/ZIP Co de Phone Number MANDY [address] [place] [address] * Differential, auto (02/23/2025 1:15 PM CDT) Pathologist [facility] Neutrophil abs 2.32 1.50 - 6.50 K/cumm Imm gran abs 0.07 0.00 - 0.10 K/cumm [facility] Lymphocyte abs 2.25 0.80 - 3.30 K/cumm [facility] Monocyte abs 0.33 0.20 - 0.80 K/cumm [facility] Eosinophil abs 0.16 0.00 - 0.50 K/cumm [facility] Basophil abs 0.04 0.00 - 0.10 K/cumm [facility] Neutrophil pct 44.8 % [facility] Comment: Interpretive Data Percent cell count reference ranges are not reported, since discordance with absolute values may lead to misinterpretation of CBC data. Current Interpretive Data was last revised on 2017. Imm gran pct 1.4 % [facility] Comment: Interpretive Data Percent cell count reference ranges are not reported, since discordance with absolute values may lead to misinterpretation of CBC data. Current Interpretive Data was last revised on 2017. Lymphocyte pct 43.5 % [facility] Comment: Interpretive Data Percent cell count reference ranges are not reported, since discordance with absolute values may lead to misinterpretation of CBC data. Current Interpretive Data was last revised on 2017. Monocyte pct 6.4 % [facility] Comment: Interpretive Data Percent cell count reference ranges are not reported, since discordance with absolute values may lead to misinterpretation of CBC data. Current Interpretive Data was last revised on 2017. Eosinophil pct 3.1 % [facility] Comment: Interpretive Data Percent cell count reference ranges are not reported, since discordance with absolute values may lead to misinterpretation of CBC data. Current Interpretive Data was last revised on 2017. Basophil pct 0.8 % [facility] Comment: Interpretive Data Percent cell count reference ranges are not reported, since discordance with absolute values may lead to misinterpretation of CBC data. Current Interpretive Data was last revised on 2017. Blood 02/23/2025 1:15 PM CDT 02/23/2025 2:25 PM CDT us Notinfile Unknown LAB BLOOD ORDERABLES Final Res ult [facility] [address] [facility] Department [place] [address] * (ABNORMAL) CBC with auto differential (02/23/2025 1:15 PM CDT) WBC 5.17 3.80 - 9.90 K/cumm Hgb 7.8(L) 11.9 - 15.5 g/dL [facility] Hct 23.7(L) 35.6 - 45.5 % [facility] Plt 200 150 - 400 K/cumm [facility] MPV 9.4 9.1 - 12.3 fL [facility] RBC 2.70(L) 3.90 - 5.20 M/cumm [facility] MCV 87.8 81.3 - 96.4 fL [facility] MCH 28.9 27.1 - 33.3 pg [facility] MCHC 32.9 32.3 - 35.7 g/dL [facility] RDW CV 13.8 11.1 - 14.9 % [facility] RDW SD 44.3 35.7 - 48.1 fL [facility] NRBC abs 0.00 0.00 - 0.01 K/cumm [facility] Blood 02/23/2025 1:15 PM CDT 02/23/2025 2:25 PM CDT Notinf[facility] Unknown LAB BLOOD ORDERABLES Final Res ult Performing Organization Address [facility] Co de Phone Number [address] [employer] [place] [address] * Phosphorus (02/23/2025 1:15 PM CDT) [facility] Phosphorus, pl 2.9 2.3 - 4.5 mg/dL Blood 02/23/2025 1:15 PM CDT 02/23/2025 2:25 PM CDT Notinfile Unknown LAB BLOOD ORDERABLES Final Res ult Performing Organization Address [facility] Co de Phone Number [address] [place] [address] * Magnesium (02/23/2025 1:15 PM CDT) [facility] Magnesium 2.1 1.4 - 2.5 mg/dL Blood 02/23/2025 1:15 PM CDT 02/23/2025 2:25 PM CDT us Notinfile Unknown LAB BLOOD ORDERABLES Final Res ult Performing Organization Address [facility]/ZIP Co de Phone Number MANDY [address] [facility] Department [place] [address] * (ABNORMAL) Comprehensive metabolic panel (02/23/2025 1:15 PM CDT) Sodium 136 135 - 145 mmol/L Potassium, pl 3.2(L) 3.3 - 4.9 mmol/L [facility] Chloride 108 97 - 110 mmol/L [facility] CO2 16(L) 22 - 32 mmol/L [facility] Anion gap 12 2 - 15 mmol/L [facility] BUN 14 6 - 25 mg/dL [facility] Creatinine 0.87 0.60 - 1.10 mg/dL [facility] Glucose 99 70 - 199 mg/dL [facility] Comment: Interpretive Data Fasting glucose >/= 126 [...] 2022. Calcium 8.6 8.5 - 10.3 mg/dL [facility] Bilirubin, total 0.3 0.1 - 1.2 mg/dL [facility] Protein, pl 7.4 6.5 - 8.5 g/dL [facility] Albumin 4.1 3.5 - 5.0 g/dL [facility] Alk phos 108 40 - 130 Units/L [facility] ALT 26 7 - 45 Units/L [facility] AST 39 10 - 45 Units/L [facility] Blood 02/23/2025 1:15 PM CDT 02/23/2025 2:25 PM CDT us Notinfile Unknown LAB BLOOD ORDERABLES Final Res ult Performing Organization Address City/[facility]/ZIP Co de Phone Number MANDY [address] [facility] Department [place] [address] * (ABNORMAL) eGFR (02/18/2025 12:45 AM CDT) Pathologist [facility] eGFR 55(L) >=60 mL/min/1. 73 m2 Comment: [...] NP LAB BLOOD ORDERABLES Candi l Result MANDY RIVAS [facility] Department [place] [address] * (ABNORMAL) Basic metabolic panel (02/18/2025 12:45 AM CDT) Sodium 134(L) 135 - 145 mmol/L Potassium, pl 3.7 3.3 - 4.9 mmol/L [facility] Chloride 104 97 - 110 mmol/L [facility] [facility] CO2 18(L) 22 - 32 mmol/L [facility] Anion gap 12 2 - 15 mmol/L [facility] BUN 27(H) 6 - 25 mg/dL [facility] Creatinine 1.10 0.60 - 1.10 mg/dL [facility] Glucose 100 70 - 199 mg/dL [facility] Comment: Interpretive Data Fasting glucose >/= 126 [...] 2022. Calcium 8.6 8.5 - 10.3 mg/dL [facility] Blood 02/18/2025 12:4 5 AM CDT 02/18/2025 1:46 AM CDT Tawana English NP LAB BLOOD ORDERABLES Candi choco Result [facility] [place] [address] * (ABNORMAL) eGFR (02/16/2025 10:09 PM CDT) [...] CDT 02/16/2025 10:55 PM CDT Tawana English PATIENT RESOURCE SPECIALIST LAB BLOOD ORDERABLES Candi l Result [facility] [place] [address] * (ABNORMAL) CBC without differential (02/16/2025 10:09 PM CDT) [facility] WBC 5.26 3.80 - 9.90 K/cumm Hgb 8.2(L) 11.9 - 15.5 g/dL [facility] Hct 25.4(L) 35.6 - 45.5 % [facility] Plt 173 150 - 400 K/cumm [facility] MPV 10.3 9.1 - 12.3 fL [facility] RBC 2.81(L) 3.90 - 5.20 M/cumm [facility] MCV 90.4 81.3 - 96.4 fL [facility] MCH 29.2 27.1 - 33.3 pg [facility] MCHC 32.3 32.3 - 35.7 g/dL [facility] RDW CV 14.2 11.1 - 14.9 % [facility] RDW SD 47.8 35.7 - 48.1 fL [facility] NRBC abs 0.00 0.00 - 0.01 K/cumm [facility] Blood 02/16/2025 10:0 9 PM CDT 02/16/2025 11:11 PM CDT Tawana English PATIENT RESOURCE SPECIALIST LAB BLOOD ORDERABLES Candi l Result [facility] [place] [address] * Type and screen (02/16/2025 10:09 PM CDT) Pathologist [facility] Gregory, indirect Negative Comment:Patient has previous antibody history ABO Rh B Positive [facility] Blood 02/16/2025 10:0 9 PM CDT 02/16/2025 10:[address] [facility] - 02/16/2025 11:41 PM CDT Has the patient had Daratumumab or Isatuximab in the past 6 months?->Unknown Tawana English PATIENT RESOURCE SPECIALIST LAB BLOOD BANK TEST ORDER BACILIO Final Result [facility] [place] [address] * (ABNORMAL) Basic metabolic panel (02/16/2025 10:09 PM CDT) [facility] Sodium 136 135 - 145 mmol/L Potassium, pl 3.7 3.3 - 4.9 mmol/L [facility] Chloride 103 97 - 110 mmol/L [facility] CO2 22 22 - 32 mmol/L [facility] Anion gap 11 2 - 15 mmol/L [facility] BUN 27(H) 6 - 25 mg/dL [facility] Creatinine 1.17(H) 0.60 - 1.10 mg/dL [facility] Glucose 113 70 - 199 mg/dL [facility] Comment: Interpretive Data Fasting glucose >/= 126 [...] 2022. Calcium 9.3 8.5 - 10.3 mg/dL [facility] Blood 02/16/2025 10:0 9 PM CDT 02/16/2025 10:55 PM CDT Tawana English PATIENT RESOURCE SPECIALIST LAB BLOOD ORDERABLES Candi l Result [facility] [place] [address] * (ABNORMAL) CBC without differential (02/16/2025 8:28 AM CDT) [facility] WBC 3.33(L) 3.80 - 9.90 K/cumm Hgb 7.0(L) 11.9 - 15.5 g/dL [facility] Hct 21.6(L) 35.6 - 45.5 % [facility] Plt 142(L) 150 - 400 K/cumm [facility] MPV 10.7 9.1 - 12.3 fL [facility] RBC 2.27(L) 3.90 - 5.20 M/cumm [facility] MCV 95.2 81.3 - 96.4 fL [facility] MCH 30.8 27.1 - 33.3 pg [facility] MCHC 32.4 32.3 - 35.7 g/dL [facility] RDW CV 14.3 11.1 - 14.9 % [facility] RDW SD 49.3(H) 35.7 - 48.1 fL [facility] NRBC abs 0.00 0.00 - 0.01 K/cumm [facility] Blood 02/16/2025 8:28 AM CDT 02/16/2025 9:30 AM CDT Tawana English PATIENT RESOURCE SPECIALIST LAB BLOOD ORDERABLES Candi l Result [facility] [place] [address] * eGFR (02/15/2025 11:02 PM CDT) Pathologist [facility] eGFR 61 >=60 mL/min/1. 73 m2 Comment: [...] MD LAB BLOOD ORDERABLES Final R esult [facility] [place] [address] * Basic metabolic panel (02/15/2025 11:02 PM CDT) Sodium 138 135 - 145 mmol/L Potassium, pl 4.1 3.3 - 4.9 mmol/L [facility] Chloride 104 97 - 110 mmol/L [facility] CO2 24 22 - 32 mmol/L [facility] Anion gap 10 2 - 15 mmol/L [facility] BUN 21 6 - 25 mg/dL [facility] Creatinine 1.02 0.60 - 1.10 mg/dL [facility] Glucose 89 70 - 199 mg/dL [facility] Comment: Interpretive Data Fasting glucose >/= 126 [...] 2022. Calcium 8.7 8.5 - 10.3 mg/dL [facility] Blood 02/15/2025 11:0 2 PM CDT 02/16/2025 12:44 AM CDT Luis Miguel Medina MD LAB BLOOD ORDERABLES Final R esult [facility] [email or web address] [address] * eGFR (02/15/2025 12:09 AM CDT) eGFR [...] LAB BLOOD ORDERABLES Final R esult [facility] [email or web address] [address] * Phosphorus (02/15/2025 12:09 AM CDT) Pathologist [facility] Phosphorus, pl 4.1 2.3 - 4.5 mg/dL Blood 02/15/2025 12:0 9 AM CDT 02/15/2025 12:45 AM CDT Luis Miguel Medina MD LAB BLOOD ORDERABLES Final R esult Performing Organization Address City/[facility] Co de Phone Number [facility] [place] [address] * Magnesium (02/15/2025 12:09 AM CDT) [facility] Magnesium 2.1 1.4 - 2.5 mg/dL Blood 02/15/2025 12:0 9 AM CDT 02/15/2025 12:45 AM CDT Luis Miguel Medina MD LAB BLOOD ORDERABLES Final R esult Performing Organization Address [facility] de Phone Number [facility] [place] [address] * Basic metabolic panel (02/15/2025 12:09 AM CDT) [facility] Sodium 136 135 - 145 mmol/L Potassium, pl 3.4 3.3 - 4.9 mmol/L [facility] Chloride 103 97 - 110 mmol/L [facility] CO2 25 22 - 32 mmol/L [facility] Anion gap 8 2 - 15 mmol/L [facility] BUN 17 6 - 25 mg/dL [facility] Creatinine 0.96 0.60 - 1.10 mg/dL [facility] Glucose 98 70 - 199 mg/dL [facility] Comment: Interpretive Data Fasting glucose >/= 126 [...] 2022. Calcium 8.9 8.5 - 10.3 mg/dL [facility] Blood 02/15/2025 12:0 9 AM CDT 02/15/2025 12:45 AM CDT us Luis Miguel Medina MD LAB BLOOD ORDERABLES Final R esult Performing Organization Address City/[facility]/ZIP Co de Phone Number [facility] [place] [address] * eGFR (02/13/2025 11:22 PM CDT) eGFR [...] NP LAB BLOOD ORDERABLES Final Res ult [facility] [place] [address] * Differential, auto (02/13/2025 11:22 PM CDT) Neutrophil abs 2.58 1.50 - 6.50 K/cumm Imm gran abs 0.03 0.00 - 0.10 K/cumm [facility] Lymphocyte abs 1.13 0.80 - 3.30 K/cumm [facility] Monocyte abs 0.47 0.20 - 0.80 K/cumm [facility] Eosinophil abs 0.27 0.00 - 0.50 K/cumm [facility] Basophil abs 0.02 0.00 - 0.10 K/cumm [facility] Neutrophil pct 57.4 % [facility] Comment: Interpretive Data Percent cell count reference ranges are not reported, since discordance with absolute values may lead to misinterpretation of CBC data. Current Interpretive Data was last revised on 2017. Imm gran pct 0.7 % [facility] Comment: Interpretive Data Percent cell count reference ranges are not reported, since discordance with absolute values may lead to misinterpretation of CBC data. Current Interpretive Data was last revised on 2017. Lymphocyte pct 25.1 % [facility] Comment: Interpretive Data Percent cell count reference ranges are not reported, since discordance with absolute values may lead to misinterpretation of CBC data. Current Interpretive Data was last revised on 2017. Monocyte pct 10.4 % [facility] Comment: Interpretive Data Percent cell count reference ranges are not reported, since discordance with absolute values may lead to misinterpretation of CBC data. Current Interpretive Data was last revised on 2017. Eosinophil pct 6.0 % [facility] Comment: Interpretive Data Percent cell count reference ranges are not reported, since discordance with absolute values may lead to misinterpretation of CBC data. Current Interpretive Data was last revised on 2017. Basophil pct 0.4 % [facility] Comment: Interpretive Data Percent cell count reference ranges are not reported, since discordance with absolute values may lead to misinterpretation of CBC data. Current Interpretive Data was last revised on 2017. Blood 02/13/2025 11:2 2 PM CDT 02/13/2025 11:45 PM CDT Colleen Scott PATIENT RESOURCE SPECIALIST LAB BLOOD ORDERABLES Final Res ult Performing Organization Address [facility]/ZIP Co de Phone Number [facility] [place] [address] * (ABNORMAL) CBC with auto differential (02/13/2025 11:22 PM CDT) Pathologist [facility] WBC 4.50 3.80 - 9.90 K/cumm Hgb 7.9(L) 11.9 - 15.5 g/dL [facility] Hct 24.2(L) 35.6 - 45.5 % [facility] Plt 165 150 - 400 K/cumm [facility] MPV 9.8 9.1 - 12.3 fL [facility] RBC 2.75(L) 3.90 - 5.20 M/cumm [facility] MCV 88.0 81.3 - 96.4 fL [facility] MCH 28.7 27.1 - 33.3 pg [facility] MCHC 32.6 32.3 - 35.7 g/dL [facility] RDW CV 14.6 11.1 - 14.9 % [facility] RDW SD 47.3 35.7 - 48.1 fL [facility] NRBC abs 0.00 0.00 - 0.01 K/cumm [facility] Blood 02/13/2025 11:2 2 PM CDT 02/13/2025 11:45 PM CDT Colleen Scott PATIENT RESOURCE SPECIALIST LAB BLOOD ORDERABLES Final Res ult [facility] [place] [address] * Phosphorus (02/13/2025 11:22 PM CDT) Pathologist [facility] Phosphorus, pl 3.5 2.3 - 4.5 mg/dL Blood 02/13/2025 11:2 2 PM CDT 02/13/2025 11:45 PM CDT Colleen Scott PATIENT RESOURCE SPECIALIST LAB BLOOD ORDERABLES Final Res ult Performing Organization Address City/[facility] Co de Phone Number [facility] [place] [address] * Magnesium (02/13/2025 11:22 PM CDT) Pathologist [facility] Magnesium 2.0 1.4 - 2.5 mg/dL Blood 02/13/2025 11:2 2 PM CDT 02/13/2025 11:45 PM CDT Colleen Scott PATIENT RESOURCE SPECIALIST LAB BLOOD ORDERABLES Final Res ult Performing Organization Address [facility] de Phone Number [facility] Department [place] [address] * Basic metabolic panel (02/13/2025 11:22 PM CDT) Pathologist [facility] Sodium 136 135 - 145 mmol/L Potassium, pl 3.4 3.3 - 4.9 mmol/L [facility] Chloride 101 97 - 110 mmol/L [facility] CO2 24 22 - 32 mmol/L [facility] Anion gap 11 2 - 15 mmol/L [facility] BUN 14 6 - 25 mg/dL [facility] Creatinine 0.90 0.60 - 1.10 mg/dL [facility] Glucose 96 70 - 199 mg/dL [facility] Comment: Interpretive Data Fasting glucose >/= 126 [...] 2022. Calcium 8.7 8.5 - 10.3 mg/dL [facility] Blood 02/13/2025 11:2 2 PM CDT 02/13/2025 11:45 PM CDT Colleen Scott PATIENT RESOURCE SPECIALIST LAB BLOOD ORDERABLES Final Res ult Performing Organization Address [facility] Co de Phone Number [facility] [place] [address] * eGFR (02/13/2025 9:15 AM CDT) eGFR [...] 9:15 AM CDT 02/13/2025 10:29 AM CDT Colleen Scott PATIENT RESOURCE SPECIALIST LAB BLOOD ORDERABLES Final Res ult Performing Organization Address [facility]/ZIP Co de Phone Number [facility] [place] [address] * Differential, auto (02/13/2025 9:15 AM CDT) Neutrophil abs 2.95 1.50 - 6.50 K/cumm Imm gran abs 0.02 0.00 - 0.10 K/cumm [facility] Lymphocyte abs 0.96 0.80 - 3.30 K/cumm [facility] Monocyte abs 0.32 0.20 - 0.80 K/cumm [facility] Eosinophil abs 0.11 0.00 - 0.50 K/cumm [facility] Basophil abs 0.01 0.00 - 0.10 K/cumm [facility] Neutrophil pct 67.5 % [facility] Comment: Interpretive Data Percent cell count reference ranges are not reported, since discordance with absolute values may lead to misinterpretation of CBC data. Current Interpretive Data was last revised on 2017. Imm gran pct 0.5 % [facility] Comment: Interpretive Data Percent cell count reference ranges are not reported, since discordance with absolute values may lead to misinterpretation of CBC data. Current Interpretive Data was last revised on 2017. Lymphocyte pct 22.0 % [facility] Comment: Interpretive Data Percent cell count reference ranges are not reported, since discordance with absolute values may lead to misinterpretation of CBC data. Current Interpretive Data was last revised on 2017. Monocyte pct 7.3 % [facility] Comment: Interpretive Data Percent cell count reference ranges are not reported, since discordance with absolute values may lead to misinterpretation of CBC data. Current Interpretive Data was last revised on 2017. Eosinophil pct 2.5 % [facility] Comment: Interpretive Data Percent cell count reference ranges are not reported, since discordance with absolute values may lead to misinterpretation of CBC data. Current Interpretive Data was last revised on 2017. Basophil pct 0.2 % [facility] Comment: Interpretive Data Percent cell count reference ranges are not reported, since discordance with absolute values may lead to misinterpretation of CBC data. Current Interpretive Data was last revised on 2017. Blood 02/13/2025 9:15 AM CDT 02/13/2025 10:34 AM CDT Colleen Scott PATIENT RESOURCE SPECIALIST LAB BLOOD ORDERABLES Final Res ult Performing Organization Address [facility] Co de Phone Number [facility] [place] [address] * (ABNORMAL) CBC with auto differential (02/13/2025 9:15 AM CDT) [facility] WBC 4.37 3.80 - 9.90 K/cumm Hgb 7.7(L) 11.9 - 15.5 g/dL [facility] Hct 23.0(L) 35.6 - 45.5 % [facility] Plt 137(L) 150 - 400 K/cumm [facility] MPV 10.6 9.1 - 12.3 fL [facility] RBC 2.61(L) 3.90 - 5.20 M/cumm [facility] MCV 88.1 81.3 - 96.4 fL [facility] MCH 29.5 27.1 - 33.3 pg [facility] MCHC 33.5 32.3 - 35.7 g/dL [facility] RDW CV 14.4 11.1 - 14.9 % [facility] RDW SD 46.2 35.7 - 48.1 fL [facility] NRBC abs 0.00 0.00 - 0.01 K/cumm [facility] Blood 02/13/2025 9:15 AM CDT 02/13/2025 10:34 AM CDT Colleen Scott PATIENT RESOURCE SPECIALIST LAB BLOOD ORDERABLES Final Res ult Performing Organization Address [facility]/ZIP Co de Phone Number [facility] [place] [address] * Basic metabolic panel (02/13/2025 9:15 AM CDT) [facility] Sodium 138 135 - 145 mmol/L Potassium, pl 4.0 3.3 - 4.9 mmol/L [facility] Comment:Hemolyzed; Potassium value may be falsely elevated by as much as 0.6-1.0 mmol/L. Suggest redraw and reanalysis. Chloride 101 97 - 110 mmol/L [facility] CO2 28 22 - 32 mmol/L [facility] Anion gap 9 2 - 15 mmol/L [facility] BUN 13 6 - 25 mg/dL [facility] Creatinine 0.71 0.60 - 1.10 mg/dL [facility] Glucose 148 70 - 199 mg/dL [facility] Comment: Interpretive Data Fasting glucose >/= 126 [...] 2022. Calcium 8.5 8.5 - 10.3 mg/dL [facility] Blood 02/13/2025 9:15 AM CDT 02/13/2025 10:29 AM CDT us Colleen Scott PATIENT RESOURCE SPECIALIST LAB BLOOD ORDERABLES Final Res ult [facility] [place] [address] * XR Abdomen 1 View AP (02/13/2025 5:41 AM CDT) Anatomical Region Laterality Modality Body, Abdomen N/A Computed Radiogr aphy 02/13/2025 9:43 AM CDT Impressions 02/13/2025 11:04 AM CDT Mildly dilated loops of small and large bowel likely representing postoperative ileus. Right upper quadrant surgical clips. [place] drain and suture material overlie the right [...] postoperative ileus. Right upper quadrant surgical clips. [place] drain and suture material overlie the right lower quadrant. Dictated by: Milagros Albarran M.D. The radiology attending physician has personally reviewed this study, and had reviewed and/or edited this written report and agrees with it. Electronically signed by: Nicolas Norton M.D. Luis Miguel Medina MD IMG XR PROCEDURES Final Resu lt * POCT glucose (02/12/2025 12:04 AM CDT) Pathologist [facility] Glucose, POC 177 70 - 199 mg/dL Blood 02/12/2025 12:0 4 AM CDT 02/12/2025 12:04 AM CDT Luis Miguel Medina MD LAB POCT ORDERABLES - DEVICE Final Result [facility] [place] [address] * eGFR (02/11/2025 10:02 PM CDT) eGFR [...] MD LAB BLOOD ORDERABLES Final R esult [facility] [place] [address] * (ABNORMAL) CBC without differential (02/11/2025 10:02 PM CDT) WBC 4.86 3.80 - 9.90 K/cumm Hgb 7.9(L) 11.9 - 15.5 g/dL [facility] Hct 23.6(L) 35.6 - 45.5 % [facility] Plt 131(L) 150 - 400 K/cumm [facility] MPV 9.7 9.1 - 12.3 fL [facility] RBC 2.69(L) 3.90 - 5.20 M/cumm [facility] MCV 87.7 81.3 - 96.4 fL [facility] MCH 29.4 27.1 - 33.3 pg [facility] MCHC 33.5 32.3 - 35.7 g/dL [facility] RDW CV 14.6 11.1 - 14.9 % [facility] RDW SD 47.3 35.7 - 48.1 fL [facility] NRBC abs 0.00 0.00 - 0.01 K/cumm [facility] Blood 02/11/2025 10:0 2 PM CDT 02/11/2025 10:58 PM CDT Narrative [facility] - 02/11/2025 11:06 PM CDT Obtain POD 1 at 2200. Luis Miguel Medina MD LAB BLOOD ORDERABLES Final R esult [facility] [place] [address] * Basic metabolic panel (02/11/2025 10:02 PM CDT) [facility] Sodium 140 135 - 145 mmol/L Potassium, pl 3.6 3.3 - 4.9 mmol/L [facility] Chloride 104 97 - 110 mmol/L [facility] CO2 27 22 - 32 mmol/L [facility] Anion gap 9 2 - 15 mmol/L [facility] BUN 9 6 - 25 mg/dL [facility] Creatinine 0.87 0.60 - 1.10 mg/dL [facility] Glucose 119 70 - 199 mg/dL [facility] Comment: Interpretive Data Fasting glucose >/= 126 [...] 2022. Calcium 8.5 8.5 - 10.3 mg/dL [facility] Blood 02/11/2025 10:0 2 PM CDT 02/11/2025 10:58 PM CDT Narrative [facility] - 02/12/2025 12:15 AM CDT Obtain POD 1 at 2200. Luis Miguel Medina MD LAB BLOOD ORDERABLES Final R esult [facility] [place] [address] * eGFR (02/10/2025 8:33 PM CDT) [facility] eGFR 74 >=60 mL/min/1. 73 m2 Comment: [...] 8:33 PM CDT 02/10/2025 9:19 PM CDT us Luis Miguel Medina MD LAB BLOOD ORDERABLES Final R esult [facility] [place] [address] * (ABNORMAL) CBC without differential (02/10/2025 8:33 PM CDT) [facility] WBC 6.36 3.80 - 9.90 K/cumm Hgb 8.7(L) 11.9 - 15.5 g/dL [facility] Hct 25.5(L) 35.6 - 45.5 % [facility] Plt 138(L) 150 - 400 K/cumm [facility] MPV 9.7 9.1 - 12.3 fL [facility] RBC 2.94(L) 3.90 - 5.20 M/cumm [facility] MCV 86.7 81.3 - 96.4 fL [facility] MCH 29.6 27.1 - 33.3 pg [facility] MCHC 34.1 32.3 - 35.7 g/dL [facility] RDW CV 14.6 11.1 - 14.9 % [facility] RDW SD 46.5 35.7 - 48.1 fL [facility] NRBC abs 0.00 0.00 - 0.01 K/cumm [facility] Blood 02/10/2025 8:33 PM CDT 02/10/2025 9:18 PM CDT Narrative [facility] - 02/10/2025 9:25 PM CDT Obtain POD 0 at 2200. us Luis Miguel Medina MD LAB BLOOD ORDERABLES Final R esult [facility] Department [place] [address] * (ABNORMAL) Basic metabolic panel (02/10/2025 8:33 PM CDT) Sodium 134(L) 135 - 145 mmol/L Potassium, pl 4.2 3.3 - 4.9 mmol/L [facility] Chloride 99 97 - 110 mmol/L [facility] CO2 24 22 - 32 mmol/L [facility] Anion gap 11 2 - 15 mmol/L [facility] BUN 14 6 - 25 mg/dL [facility] Creatinine 0.86 0.60 - 1.10 mg/dL [facility] Glucose 172 70 - 199 mg/dL [facility] Comment: Interpretive Data Fasting glucose >/= 126 [...] 2022. Calcium 8.4(L) 8.5 - 10.3 mg/dL [facility] Blood 02/10/2025 8:33 PM CDT 02/10/2025 9:19 PM [address]ative [facility] - 02/10/2025 9:48 PM CDT Obtain POD 0 at 2200. Luis Miguel Medina MD LAB BLOOD ORDERABLES Final R esult MANDY [facility] Department [place] [address] * Surgical pathology (02/10/2025 11:09 AM CDT) Tissue (Small bowel, resection non- tumor) 02/10/2025 11:09 AM CDT Comment:[facility] participant Tissue specimen (specimen) (Colon, Resection, Non-tumor) 02/10/2025 11:20 AM CDT Comment:[facility] research parti cipant Narrative PATHOLOGY [facility] - 02/13/2025 11:17 AM CDT EPIC results best viewed via link to PDF [facility] Chyna Pimentel [facility] of [place] [address] Note to Patients: This report may contain [...] Gender: F : 1960 (Age: 64) Address: [address] [place] [id number] Hospital #: [id number] Taken:02/10/2025 Received:02/10/2025 Reported: 02/13/2025 Patient Type: [facility] Inpatient Service: Surgery Location: [facility] 477 Physician(s): Luis Miguel Medina M.D. Sosa Flowers [facility] Chantel Perez MD Diagnosis: A. Small intestine, skin, ileostomy, [...] benign lymph node - Negative for dysplasia xl02/13/2025 11:17 By this signature, I attest that [...] proximal margin and discontinuous areas of flattened, esgundo-pink mucosa (1.1 to 4.3 cm in greatest [...] Labeled B1-proximal ileal margin, shaved;B2-distal colonic margin, operations representative shaved;B3-flattened ileal mucosa in relationship to proximal mucosal folds;B4-flattened mucosa in relationship to creeping fat;R2-O4-kelbtnebordcpk sections of irregular mucosal area (B5-in relationship to anastomosis); B7-flattened ileal mucosa in relationship to anastomotic line; B8-five lymph nodes, submitted entirely. Jar 3. 02/11/2025 12:07 PA(s): Brooke Singer, MS, PA (ASCP)CM By this signature, I attest that the above diagnosis is based upon my personal examination of the slides(and/or other material). Addenda/Procedures The performance characteristics of some immunohistochemical stains, fluorescence in-situ hybridization tests and immunophenotyping by flow cytometry cited in this report (if any) were determined by the Surgical Pathology and Flow Cytometry Departments at [facility] as part of an ongoing quality engineer medical device program and in compliance with federally mandated [...] Surgical Pathology and Flow Cytometry Departments of [facility]. It has not been cleared or approved by the U. S. Food and Drug Administration. IMAGES AND SCANNED DOCUMENTS, IF INCLUDED, ONLY VIEWABLE IN PDF VERSION OF REPORT us Luis Miguel Medina MD LAB PATHOLOGY ORDERABLES Fin al Result PATHOLOGY [facility] 3rd Floor [place], [place] [phone] * MT AN ELECTIVE ENDOTRACHEAL AIRWAY, MT AN PROCEDURE PLACEHOLDER (02/10/2025 10:13 AM CDT) Narrative Rebekah Lane CRNA - 02/10/2025 10:[address] CRNA 02/10/2025 10:16 AM Airway Patient location: OR Urgency: elective Indications for airway management: anesthesia and airway protection Difficult airway: no Staff: Supervising provider: Emmie Villalobos DO Placed by: [employer] CIVIL ENGINEER: Rebekah Lane CRNA Emergent airway documentation: Risks [...] easily passed. Ventilated between attempts. Atraumatic intubation. Emmie Villalobos DO ANESTHESIA ORDERABLES Final Result * (ABNORMAL) POC Blood Gas and Chemistries, Venous - (02/10/2025 8:36 AM CDT) pH, Macario POC 7.40 7.32 - 7.43 pCO2, macario POC 38(L) 40 - 50 mmHg [facility] pO2, macario POC [address] [facility] Na, POC 136 135 - 145 mmol/L [facility] K POC 3.8 3.3 - 4.9 mmol/L [facility] Comment: Interpretive Data Not all point of care methods assess for hemolysis. Confirm with instrument and retest K+ if not consistent with clinical signs and symptoms. Current Interpretive Data was last revised on 2023. Cl, POC 104 97 - 110 mmol/L [facility] Ionized Ca, POC 4.64 4.50 - 5.10 mg/dL [facility] Glucose, POC 106 70 - 199 mg/dL [facility] Lactate POC 0.8 0.7 - 2.0 mmol/L [facility] O2 Sat, Macario POC (Beau) 65 % [facility] Base excess, POC -1.1 mmol/L [facility] HCO3, Macario POC 24 20 - 30 mmol/L [facility] Hct, POC 29.0(L) 36.3 - 45.3 % [facility] Total Hb, POC 9.7(L) 11.9 - 15.5 g/dL [facility] Blood 02/10/2025 8:36 AM CDT 02/10/2025 8:36 AM CDT Luis Miguel Medina MD LAB POCT ORDERABLES - DEVICE Final Result [facility] Department [place] [address] * Glucose, random (Outreach) (02/09/2025 1:00 PM [...] LAB BLOOD ORDERABLES Final Res ult MANDY [address] [facility] Department [place] [address] * eGFR (02/09/2025 1:00 PM CDT) eGFR [...] Unknown LAB BLOOD ORDERABLES Final Res ult [facility] [address] [facility] Department [place] [address] * Differential, auto (02/09/2025 1:00 PM CDT) Neutrophil abs 2.30 1.50 - 6.50 K/cumm Imm gran abs 0.02 0.00 - 0.10 K/cumm [facility] Lymphocyte abs 2.08 0.80 - 3.30 K/cumm [facility] Monocyte abs 0.42 0.20 - 0.80 K/cumm [facility] Eosinophil abs 0.05 0.00 - 0.50 K/cumm [facility] Basophil abs 0.02 0.00 - 0.10 K/cumm [facility] Neutrophil pct 47.1 % [facility] Comment: Interpretive Data Percent cell count reference ranges are not reported, since discordance with absolute values may lead to misinterpretation of CBC data. Current Interpretive Data was last revised on 2017. Imm gran pct 0.4 % [facility] Comment: Interpretive Data Percent cell count reference ranges are not reported, since discordance with absolute values may lead to misinterpretation of CBC data. Current Interpretive Data was last revised on 2017. Lymphocyte pct 42.5 % [facility] Comment: Interpretive Data Percent cell count reference ranges are not reported, since discordance with absolute values may lead to misinterpretation of CBC data. Current Interpretive Data was last revised on 2017. Monocyte pct 8.6 % [facility] Comment: Interpretive Data Percent cell count reference ranges are not reported, since discordance with absolute values may lead to misinterpretation of CBC data. Current Interpretive Data was last revised on 2017. Eosinophil pct 1.0 % [facility] Comment: Interpretive Data Percent cell count reference ranges are not reported, since discordance with absolute values may lead to misinterpretation of CBC data. Current Interpretive Data was last revised on 2017. Basophil pct 0.4 % [facility] Comment: Interpretive Data Percent cell count reference ranges are not reported, since discordance with absolute values may lead to misinterpretation of CBC data. Current Interpretive Data was last revised on 2017. Blood 02/09/2025 1:00 PM CDT 02/09/2025 3:49 PM CDT Notinfile Unknown LAB BLOOD ORDERABLES Final Res ult Performing Organization Address [facility]/ZIP Co de Phone Number MANDY [address] [place] [address] * (ABNORMAL) Comprehensive metabolic panel, without glucose (Outreach) (02/09/2025 1:00 PM CDT) Sodium 134(L) 135 - 145 mmol/L Potassium, pl 4.2 3.3 - 4.9 mmol/L [facility] Chloride 97 97 - 110 mmol/L [facility] CO2 24 22 - 32 mmol/L [facility] Anion gap 13 2 - 15 mmol/L [facility] BUN 24 6 - 25 mg/dL [facility] Creatinine 0.89 0.60 - 1.10 mg/dL [facility] Calcium 9.1 8.5 - 10.3 mg/dL [facility] Protein, pl 7.3 6.5 - 8.5 g/dL [facility] Albumin 4.2 3.5 - 5.0 g/dL [facility] Bilirubin, total 0.4 0.1 - 1.2 mg/dL [facility] Alk phos 103 40 - 130 Units/L [facility] AST 29 10 - 45 Units/L [facility] ALT 21 7 - 45 Units/L [facility] Blood 02/09/2025 1:00 PM CDT 02/09/2025 3:49 PM CDT us Notinfile Unknown LAB BLOOD ORDERABLES Final Res ult Performing Organization Address City/[facility]/ZIP Co de Phone Number MANDY [address] [place] [address] * (ABNORMAL) CBC with auto differential (02/09/2025 1:00 PM CDT) WBC 4.89 3.80 - 9.90 K/cumm Hgb 8.8(L) 11.9 - 15.5 g/dL [facility] Hct 27.3(L) 35.6 - 45.5 % [facility] Plt 180 150 - 400 K/cumm [facility] MPV 9.6 9.1 - 12.3 fL [facility] RBC 3.03(L) 3.90 - 5.20 M/cumm [facility] MCV 90.1 81.3 - 96.4 fL [facility] MCH 29.0 27.1 - 33.3 pg [facility] MCHC 32.2(L) 32.3 - 35.7 g/dL [facility] RDW CV 14.6 11.1 - 14.9 % [facility] RDW SD 47.8 35.7 - 48.1 fL [facility] NRBC abs 0.00 0.00 - 0.01 K/cumm [facility] Blood 02/09/2025 1:00 PM CDT 02/09/2025 3:49 PM CDT Notinfile Unknown LAB BLOOD ORDERABLES Final Res ult Performing Organization Address [facility] Co de Phone Number [address] [place] [address] * Phosphorus (02/09/2025 1:00 PM CDT) [facility] Phosphorus, pl 3.7 2.3 - 4.5 mg/dL Blood 02/09/2025 1:00 PM CDT 02/09/2025 3:49 PM CDT Notinfile Unknown LAB BLOOD ORDERABLES Final Res ult Performing Organization Address [facility] Co de Phone Number [address] [place] [address] * Magnesium (02/09/2025 1:00 PM CDT) [facility] Magnesium 2.4 1.4 - 2.5 mg/dL Blood 02/09/2025 1:00 PM CDT 02/09/2025 3:49 PM CDT us Notinfile Unknown LAB BLOOD ORDERABLES Final Res ult MANDY [facility] [employer] [place] [address] * SCAN - LABS (02/09/2025 12:00 AM [...] LAB BLOOD ORDERABLES Final Res ult MANDY [facility] [place] [place] [address] * Phosphorus (02/02/2025 2:14 PM CDT) Phosphorus, pl 4.4 2.3 - 4.5 mg/dL Blood 02/02/2025 2:14 PM CDT 02/02/2025 3:24 PM CDT us Notinfile Unknown LAB BLOOD ORDERABLES Final Res ult Performing Organization Address City/[facility]/ZIP Co de Phone Number [facility] [address] [place] [address] * Magnesium (02/02/2025 2:14 PM CDT) [facility] Magnesium 2.0 1.4 - 2.5 mg/dL Blood 02/02/2025 2:14 PM CDT 02/02/2025 3:24 PM CDT us Notinfile Unknown LAB BLOOD ORDERABLES Final Res ult Performing Organization Address [facility] de Phone Number MANDY [address] [address] * (ABNORMAL) Comprehensive metabolic panel (02/02/2025 2:14 PM CDT) [facility] Sodium 134(L) 135 - 145 mmol/L Potassium, pl 3.9 3.3 - 4.9 mmol/L [facility] Chloride 101 97 - 110 mmol/L [facility] CO2 20(L) 22 - 32 mmol/L [facility] Anion gap 13 2 - 15 mmol/L [facility] BUN 18 6 - 25 mg/dL [facility] Creatinine 0.94 0.60 - 1.10 mg/dL [facility] Glucose 109 70 - 199 mg/dL [facility] Comment: Interpretive Data Fasting glucose >/= 126 [...] 2022. Calcium 9.1 8.5 - 10.3 mg/dL [facility] Bilirubin, total 0.4 0.1 - 1.2 mg/dL [facility] Protein, pl 7.6 6.5 - 8.5 g/dL [facility] Albumin 4.4 3.5 - 5.0 g/dL [facility] Alk phos 105 40 - 130 Units/L [facility] ALT 22 7 - 45 Units/L [facility] AST 33 10 - 45 Units/L [facility] Blood 02/02/2025 2:14 PM CDT 02/02/2025 3:24 PM CDT us Notinfile Unknown LAB BLOOD ORDERABLES Final Res ult [facility] [address] [facility] Department [place] [address] * Differential, auto (02/02/2025 1:30 PM CDT) Neutrophil abs 2.61 1.50 - 6.50 K/cumm Imm gran abs 0.02 0.00 - 0.10 K/cumm [facility] Lymphocyte abs 2.00 0.80 - 3.30 K/cumm [facility] Monocyte abs 0.41 0.20 - 0.80 K/cumm [facility] Eosinophil abs 0.08 0.00 - 0.50 K/cumm [facility] Basophil abs 0.02 0.00 - 0.10 K/cumm [facility] Neutrophil pct 50.7 % [facility] Comment: Interpretive Data Percent cell count reference ranges are not reported, since discordance with absolute values may lead to misinterpretation of CBC data. Current Interpretive Data was last revised on 2017. Imm gran pct 0.4 % [facility] Comment: Interpretive Data Percent cell count reference ranges are not reported, since discordance with absolute values may lead to misinterpretation of CBC data. Current Interpretive Data was last revised on 2017. Lymphocyte pct 38.9 % [facility] Comment: Interpretive Data Percent cell count reference ranges are not reported, since discordance with absolute values may lead to misinterpretation of CBC data. Current Interpretive Data was last revised on 2017. Monocyte pct 8.0 % [facility] Comment: Interpretive Data Percent cell count reference ranges are not reported, since discordance with absolute values may lead to misinterpretation of CBC data. Current Interpretive Data was last revised on 2017. Eosinophil pct 1.6 % [facility] Comment: Interpretive Data Percent cell count reference ranges are not reported, since discordance with absolute values may lead to misinterpretation of CBC data. Current Interpretive Data was last revised on 2017. Basophil pct 0.4 % [facility] Comment: Interpretive Data Percent cell count reference ranges are not reported, since discordance with absolute values may lead to misinterpretation of CBC data. Current Interpretive Data was last revised on 2017. Blood 02/02/2025 1:30 PM CDT 02/02/2025 3:18 PM CDT us Notinfile Unknown LAB BLOOD ORDERABLES Final Res ult [place] [id number] [facility] Department [place] [address] * (ABNORMAL) CBC with auto differential (02/02/2025 1:30 PM CDT) WBC 5.14 3.80 - 9.90 K/cumm Hgb 9.1(L) 11.9 - 15.5 g/dL [facility] Hct 27.4(L) 35.6 - 45.5 % [facility] Plt 183 150 - 400 K/cumm [facility] MPV 9.4 9.1 - 12.3 fL [facility] RBC 3.09(L) 3.90 - 5.20 M/cumm [facility] MCV 88.7 81.3 - 96.4 fL [facility] MCH 29.4 27.1 - 33.3 pg [facility] MCHC 33.2 32.3 - 35.7 g/dL [facility] RDW CV 14.3 11.1 - 14.9 % [facility] RDW SD 45.4 35.7 - 48.1 fL [facility] NRBC abs 0.00 0.00 - 0.01 K/cumm [facility] Blood 02/02/2025 1:30 PM CDT 02/02/2025 3:18 PM CDT us Notinfile Unknown LAB BLOOD ORDERABLES Final Res ult MANDY [address] [facility] Department [place] [address] * Prepare RBC: 2 Units (01/29/2025 3:19 PM CDT) Product code [id number] [facility] Unit Number [id number] 1-W [facility] Product Blood Type BPOS [facility] Dispense Status RETURNED [facility] Product code [id number] Unit Number [id number] 9-0 [facility] Product Blood Type BPOS [facility] Dispense Status RETURNED [facility] Blood 01/29/2025 3:19 PM CDT 01/29/2025 3:18 PM CDT Narrative [facility] - 02/13/2025 12:37 AM CDT Specify Procedure:->ileostomy takedown and hernia repair Are special requirements needed? (All products are leukoreduced and CMV- safe)- >No Date required:-[id number] LRRBC # of [id number] Reasons:-Hold for procedure (specify procedure)} us Rocio Ellis NP BLOOD BANK PRODUCT ORDER BACILIO Final Result Performing Organization Address City/[facility]/ZIP Co de Phone Number MANDY [facility] [place] [address] * TYPE AND SCREEN 14 DAY (01/29/2025 3:12 PM CDT) Gregory, indirect Negative Comment:Patient has previous antibody history ABO Rh B Positive [facility] Blood 01/29/2025 3:12 PM CDT 01/29/2025 4:05 PM CDT Narrative [facility] - 01/29/2025 5:03 PM CDT Is this test being ordered in advance for a procedure?->Yes Expected date of procedure:->02/10/25 Has the patient been transfused in the past 3 months?->No Has the patient been in the past 3 months?->No us Rocio Ellis PATIENT RESOURCE SPECIALIST LAB BLOOD BANK TEST ORDE RABSAUL Final Result Performing Organization Address City/[facility]/ZIP Co de Phone Number [facility] [place] [address] * (ABNORMAL) Cytomegalovirus (CMV) DNA PCR, quantitative Blood (01/26/2025 10:30 AM CDT) [facility] CMV DNA Detected( A) [facility] Comment: Interpretive Data: The quantifiable range of this assay is 34 IUnits/mL to 10,000,000 IUnits/mL (1.53 log IUnits/mL to 7.0 log IUnits/mL). Testing was performed by the [employer] 6800 CMV Test ([employer] Testing performed at [facility]. Current interpretive data was last revised on 2021. Testing performed by: [facility], [address] [place]., [address] CMV DNA IU/mL <34 IUnits/mL MANDY Comment:Testing performed by : [facility], [address] [place]., [address] CMV DNA log IU/mL <1.53 log IUnits/mL MANDY Comment:Testing performed by : [facility], [address] [place]., [address] Blood 01/26/2025 10:3 0 AM CDT 01/26/2025 3:54 PM CDT us Notinfile Unknown LAB MICROBIOLOGY - GENERAL ORD ERABLES Final Result MANDY [address] [facility] Department [place] [address] [facility] * Glucose, random (Outreach) (01/26/2025 10:30 AM CDT) Glucose 137 70 - 199 mg/dL Comment: [...] LAB BLOOD ORDERABLES Final Res ult MANDY [address] [facility] Department [place] [address] * (ABNORMAL) eGFR (01/26/2025 10:30 AM CDT) [...] 0 AM CDT 01/26/2025 12:32 PM CDT Notinfile Unknown LAB BLOOD ORDERABLES Final Res ult Performing Organization Address [facility]/ZIP Co de Phone Number MANDY HE [address] [place] [address] [place] [address] * (ABNORMAL) Comprehensive metabolic panel, without glucose (Outreach) (01/26/2025 10:30 AM CDT) Sodium 133(L) 135 - 145 mmol/L Potassium, pl 3.5 3.3 - 4.9 mmol/L [facility] Chloride 100 97 - 110 mmol/L [facility] CO2 19(L) 22 - 32 mmol/L [facility] Anion gap 14 2 - 15 mmol/L [facility] BUN 14 6 - 25 mg/dL [facility] Creatinine 1.09 0.60 - 1.10 mg/dL [facility] Calcium 9.3 8.5 - 10.3 mg/dL [facility] Protein, pl 7.9 6.5 - 8.5 g/dL [facility] Albumin 4.4 3.5 - 5.0 g/dL [facility] Bilirubin, total 0.7 0.1 - 1.2 mg/dL [facility] Alk phos 107 40 - 130 Units/L [facility] AST 36 10 - 45 Units/L [facility] ALT 24 7 - 45 Units/L [facility] Blood 01/26/2025 10:3 0 AM CDT 01/26/2025 12:32 PM CDT us Notinfile Unknown LAB BLOOD ORDERABLES Final Res ult Performing Organization Address City/[facility]/ZIP Co de Phone Number MANDY [address] [place] [address] * (ABNORMAL) Phosphorus (01/26/2025 10:30 AM CDT) Phosphorus, pl 4.7(H) 2.3 - 4.5 mg/dL Blood 01/26/2025 10:3 0 AM CDT 01/26/2025 12:32 PM CDT us Notinfile Unknown LAB BLOOD ORDERABLES Final Res ult Performing Organization Address City/[facility] Co de Phone Number MANDY [address] [address] * Magnesium (01/26/2025 10:30 AM CDT) Magnesium 1.8 1.4 - 2.5 mg/dL Blood 01/26/2025 10:3 0 AM CDT 01/26/2025 12:32 PM CDT us Notinfile Unknown LAB BLOOD ORDERABLES Final Res ult Performing Organization Address [facility] de Phone Number MANDY [address] [address] * Colonoscopy (12/04/2024 12:25 PM CDT) Anatomical [...] consent document in the medical record. The [facility] [id number] endoscope was introduced through the anus [...] Bone mineral density was performed on a HoloHole 19 Discovery Densitometer. Based on machine cross-calibration and [...] mineral density scan were prepared by Sonali Templeton)(Chrissy)(MALI) BOBBI who is accredited by the International Society of Clinical Densitometry. The overall patient assessment and scan interpretation were performed by Flakita Lowe, M.D. who is certified by the International Society of Clinical Densitometry. [id number] us Cam Jara MD IMG DXA PROCEDURES Candi [...] MICROBIOLOGY - GENER AL ORDERABLES Final Result MANDY [facility] [place] [address] from Last 3 Months or Most Recently Relevant to Health Maintenance Insurance [facility] [employer] [place] [id number] Advance Directives For more information, please contact: [phone] * Full Code (Latest Code Status on [...] 2:49 AM 09/29/2023 6:15 PM Care Teams Crop Puller Relationship Specialty Start Date End Date Sosa Flowers DO PCP - General Family Medicine 01/12/20 Gris Mccain MD [address] [facility] GASTROENTEROLOGY, [facility] [address] [place] [address] PCP - Home Infusion Attending Gastroenterology 12/12/24 Luis Miguel Medina MD [address] [facility] [facility] [id number] [place] [address] Surgeon Colon and Rectal Surgery 02/21/23 Beata Ambrosio MD [address] [place], [place] [id number] Referring Physician Gastroenterology 02/26/23 Star Griffiths MD 1 [facility] [address] Consulting Physician Gastroenterology 02/27/23 Kingsley Ovalles MD 1 [facility] [place] [address] Consulting Physician Gastroenterology 02/27/23 Lizeth Salazar MD 1 [facility] [place] [address] Consulting Physician Infectious Diseases 07/12/23 Kenroy Hicks, jen Home Infusion Pharmacist Pharmacy 12/02/24 Evette Mccloud, RN Home Infusion Nursing 12/05/24
--- OUTSIDE RECORDS SUMMARY | 2025-04-24 14:46 | XMS_ITS | Encounter Summary ---
Author Organization [facility] Address [address] [place] [address] Phone Care Team Providers Care Tie Tape Machine Operator Name Role Phone Kendrickbarrysissy Sosa Lopeze Primary Care Provider [phone] Luis Miguel Medina MD Unavailable [phone] Beata Ambrosio MD Unavailable [phone] Star Griffiths MD Unavailable [phone] Kingsley Ovalles MD Unavailable [phone] Lizeth Salazar MD Unavailable [phone] Kenroy Hicks [facility] Unavailable Unavailable Evette Mccloud RN Unavailable Livier Gris Odell MD Unavailable [phone] Encounter Details Date Type Department Care Team (Late st Contact Info) Description 04/09/2025 Telephone [facility] [address] [facility] Medical Office Building [address] [place] [address] Cam Jara MD [address] [place] [address] Social History Tobacco Use Types Packs/Day Years [...] Patient unable to respond 11/06/2024 [facility] Utilities Answer Date Recorded In the [...] often do you attend chur ch or druze services? Never 10/02/2023 Do you belong to any clubs o r organizations such as latter day groups, unions, fraternal or athletic groups, or [...] place to sleep or slept in a senior living (including now)? No 10/02/2023 Personal Safety Answer Date Recorded Have you ever been in or are you currently in a harmful physical or emotional relationship or is someone making you feel afraid or unsafe? 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 Female 12:20 AM [employer]LECTRO [employer]ICAL ENGINE[employer] Gender Identity Female 04/17/2021 10:27 AM CDT Sexual Orientation Straight 04/17/2021 10 :27 AM CDT documented as of this encounter Ordered Prescriptions Prescription Sig Dispense Quantity Refills Last Filled Start Date End Date sodium bicarbonate 650 mg tabletIndications:A cidosis Take 1 tablet (650 mg total) by mouth 3 (three) times a day 270 tablet 1 04/24/2025 documented in this encounter Miscellaneous Notes * Addendum Note - Kenia Hillman RN - 04/24/2025 9:26 AM CDTAddended by: KENIA HILLMAN on: 04/24/2025 09:26 AM Modules accepted: Orders * Telephone Encounter - Kenia Hillman RN - 04/24/2025 9:26 AM CDT Pt needed a refill for her sodium bicarb; refilled patients prescription. * Telephone Encounter - Jayden Cook CMA - 04/09/2025 10:25 AM CDT Returned pt call and spoke with pt and pt wanted to make you aware that lab have been completed on 03/30/25 and 04/06/25. documented in this encounter Plan of Treatment Scheduled Orders Name Type Priority Associated Diagnoses Orde r Schedule Basic metabolic panel Lab Routine Other osteoporosis without current pathological fracture CKD stage 3b, GFR 30-44 ml/min (HCC) Expected: 04/16/2025, Expires: 04/13/2026 documented as of this encounter Visit Diagnoses Diagnosis Other osteoporosis without current pathological fracture- Primary CKD stage 3b, GFR 30-44 ml/min (HCC) Acidosis documented in this encounter Discontinued Medications Medication Sig Discontinue Reason Start Date End Da te sodium bicarbonate 650 mg tabletIndications:Acidosi s Take 1 tablet (650 mg total) by mouth daily 11/21/2024 04/24/2025 documented as of this encounter Care Teams Tie Tape Machine Operator Relationship Specialty Start Date End Date Sosa Flowers DO PCP - General Family Medicine 01/12/20 Gris Mccain MD [address] [facility] GASTR[facility]ENTEROLOGY, [facility] [address] [place] [address] PCP - Home Infusion Attending Gastroenterology 12/12/24 Luis Miguel Medina MD [address] [facility] [id number] [place] [address] Surgeon Colon and Rectal Surgery 02/21/23 Beata Ambrosio MD [address] [place] [address] Referring Physician Gastroenterology 02/26/23 Star Griffiths MD 1 [facility] [place] [address] Consulting Physician Gastroenterology 02/27/23 Kingsley Ovalles MD 1 [facility] [place] [address] Consulting Physician Gastroenterology 02/27/23 Lizeth Salazar MD 1 [facility] [place] [address] Consulting Physician Infectious Diseases 07/12/23 Kenroy Hicks, [facility] Home Infusion Pharmacist Pharmacy 12/02/24 Evette Mccloud, RN Home Infusion Nursing 12/05/24 documented as of this encounter
--- OUTSIDE RECORDS SUMMARY | 2025-04-24 14:46 | XMS_ITS ---
Author Organization [facility] Address [address] [place] [address] Care Team Providers Care Dock Supervisor Name Role Phone Sosa Flowers Primary Care Provider [phone] Luis Miguel Medina MD Unavailable [phone] Beata Ambrosio MD Unavailable [phone] Star Griffiths MD Unavailable [phone] Kingsley Ovalles MD Unavailable [phone] Lizeth Salazar MD Unavailable [phone] Kenroy Hicks [facility] Unavailable Unavailable Evette Mccloud RN Unavailable Livier Gris Odell MD Unavailable [phone] Home Infusion Status:Enrolled (Active) Start date:11/28/2024 Enrollment date:11/28/2024 Related service episodes:RxHI TPN - TPN (Start Here) 1500 ml IV 3 Times a Week (Active), Hydration Therapy (Active) Overview Cutover complete Nichole Paris 12/12/2024 3:29 PM Case Team Name Relationship Phone Evette Mccloud RN(Responsible Staff) H ome Infusion Nursing Continued Care and Services Coordination
--- OUTSIDE RECORDS SUMMARY | 2025-04-24 14:47 | XMS_ITS | Clinical Summary ---
Author Organization [facility] Address [address] [place] [address] Care Team Providers Care Wallpaper Consultant Name Role Phone Alfred De Souza MD Primary Care Provider [phone] Source Comments [facility],non-owned Affiliates and Associated Physician Practices is amultiple site organization consisting of ambulatory clinics and hospital sitesin [place], [place], [place] and [place]. This disclosure is being madepursuant to the Care Everywhere program and may not contain all information available regarding this patient. Last updated 18.[facility] Access Closure Allergies Active Allergy Reactions Criticality Noted Date [...] to complete this topic Insurance [address] [facility] Care Teams Wallpaper Consultant Relationship Specialty Start Date End Date Alfred De Souza MD [address] [place] [id number] PCP - General Family Medicine 01/28/19
== END 2025-04-24 14:44 | disposition home or self-care (01) ==
PROVIDERS: PCP Family Medicine; Visit Provider Family Medicine
DX: M79.89 Other specified soft tissue disorders (principal)
CPT/HCPCS: 93971